=== PATIENT | male | born 1935 | race Caucasian/White ===

== ENCOUNTER → 2017-08-09 15:11 | Outpatient (CLI) | payer MEDICARE, SELFPAY ==
[2017-08-09 16:13] LABS: Blood Urea Nitrogen 20 mg/dL (9-20); Calcium 9.4 mg/dL (8.4-10.2); Carbon Dioxide 29 mmol/L (22-32); Chloride 102 mmol/L (98-107); Estimated Glomerular Filt Rate > 60.0 mL/min (>60); Glucose 117 mg/dL (80-110); HEMOLYSIS < 15 (0-50); Potassium 3.7 mmol/L (3.4-5.1); Sodium 142 mmol/L (137-145)
== END ==
PROVIDERS: Family Provider Family Medicine; PCP Family Medicine; Visit Provider Internal Medicine Cardiovascular Disease
DX: I10 Essential (primary) hypertension (principal)
CPT/HCPCS: 36415; 80048

== ENCOUNTER → 2017-08-15 09:39 | Outpatient (CLI) | payer MEDICARE, SELFPAY ==
--- NOTE | 2017-08-15 09:41 | DI.US.S_ITS ---
PROCEDURE: US PERIPH VENOUS LOW EXTREM BI INDICATIONS: Edema TECHNIQUE: Real-time imaging, as well as color and pulse Doppler interrogation, were performed of the deep veins of both legs from the inguinal ligament to the popliteal fossa. COMPARISON: None. FINDINGS: The deep veins are normally compressible, and free of intraluminal thrombus. Color and pulse Doppler demonstrate normal phasic intravascular flow. There is normal augmentation response to distal compression maneuver. IMPRESSION: No deep venous thrombosis identified within either the left or right lower extremities. Dictated by: Luigi Chua [facility] Interpreted: Viri Mcdermott MD on 08/15/2017 at 10:55 Approved by: Viri Mcdermott MD, PhD on 08/15/2017 at 14:30
== END ==
PROVIDERS: Family Provider Family Medicine; PCP Family Medicine; Visit Provider Internal Medicine
DX: R60.9 Edema, unspecified (principal)
CPT/HCPCS: 93970

== ENCOUNTER 2017-10-23 11:25 | Day surgery (SDC) | payer MEDICARE, SELFPAY ==
--- NOTE | 2017-10-23 | PATH_ITS ---
[facility] Accession Number: [id number] . 01 Material submitted: . PART A: CECAL POLYPS PART B: POLYP @ 80CM PART C: POLYP @ 50CM PART D: POLYP @ 10CM . 02 Diagnosis: A. Cecal Polyps: Fragments of tubulovillous adenoma. Negative for high-grade dysplasia or malignancy. . B. 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 . C. Colon Poly at 50 cm: Colonic mucosa with prominent benign lymphoid aggregate. Negative for serrated lesion, dysplasia or malignancy. . D. Colon Polyp at 10 cm: Fragments of hyperplastic polyp. MRV/10/25/2017 . 02 Comment: Part B) Immunohistochemical stains for DNA mismatch repair proteins are pending and results will be issued in an addendum. . As part of routine quality tester, Dr. Fleming has reviewed part B of this case and agrees with the above diagnosis. The finding of invasive adenocarcinoma with mucinous features was reported to Dr. Burgess's nurse, [facility], by Dr. Mario Schroeder on 10/25/2017 at 11:40 a.m. . 02 Electronically signed: . Mario Schroeder MD, PhD, Pathologist NPI- [id number] . 01 Gross description: . Part A: CECAL POLYPS: Received in formalin are multiple fragment(s) of dodd, soft tissue measuring 2.5 x 1.7 x 0.4 cm in aggregate submitted entirely in 1 cassette(s) Part B: POLYP @ 80CM: Received in formalin are multiple fragment(s) of dodd, soft tissue measuring 1.5 x 0.6 x 0.3 cm in aggregate submitted entirely in 1 cassette(s) Part C: POLYP @ 50CM: Received in formalin is 1 fragment(s) of dodd, soft tissue measuring 0.5 x 0.4 x 0.2 cm submitted entirely in 1 cassette(s) Part D: POLYP @ 10CM: Received in formalin are multiple fragment(s) of dodd, soft tissue measuring 0.7 x 0.4 x 0.3 cm in aggregate submitted entirely in 1 cassette(s) /CKI /CKI . 02 Pathologist provided ICD-10: D12.0, K63.5, C18.9 . 02 CPT . 865178, [id number], [id number], 227783, D45251, [id number] Performed at: 01 [facility] [address] [id number] MD Doug Johnson MD Phone: [phone] Performed at: 02 [facility] [address] [place], [place] [id number] MD Steven Abbott MD Phone: [phone]
[2017-10-23 12:11] VITALS: BP 160/91; PULSE 73; RESP 18; TEMP 36.4; O2SAT 97; BMI 30.5
[2017-10-23] MEDS: SODIUM CHLORIDE 0.9% 1,000 ML 200 ML IV (12:21)
--- NOTE | 2017-10-23 13:33 | PM.HP.1 ---
History of Present Illness Date Patient Seen: 10/23/17 Time Patient Seen: 12:33 Chief complaint: 60101 COLONOSCOPY Narrative: Patient here for screening exam. Last exam over 12 years ago. He has a history of polyps. Patient History Medical History AICD (automatic cardioverter/defibrillator) present (Chronic) Diabetes mellitus (Chronic) Hyperlipidemia (Chronic) Hypertension (Chronic) Pacemaker (Chronic) Peripheral neuropathy (Chronic) Vertigo (Chronic) Colon polyps (Resolved) Surgical History Implantable cardioverter-defibrillator (ICD) in situ (Resolved) Presence of cardiac pacemaker (Resolved) Family & Social History Family History: Reviewed 10/23/17 by Sami Burgess MD Social History: household members spouse Tobacco & Substance use: Smoking Status Former smoker Meds Home Medications Medication Instructions Recorded Confirmed Type aspirin 81 mg PO QDAY #0 01/10/12 10/23/17 History Disabled Parking Permit ea #1 03/21/16 08/29/17 Rx [cinnamon] 1,000 mg PO QDAY #0 03/06/17 08/29/17 History atorvastatin 20 mg tablet 20 mg PO HS #90 tab 08/11/17 10/23/17 Rx carvedilol 3.125 mg tablet 3.125 mg PO BID #180 tab 08/11/17 10/23/17 Rx potassium chloride ER 10 mEq 10 meq PO QDAY #90 tab 08/11/17 10/23/17 Rx capsule,extended release amlodipine 5 mg tablet 2.5 mg PO QDAY #180 tab 08/14/17 10/23/17 Rx losartan 50 mg-hydrochlorothiazide 2 tab PO QDAY #90 tab 08/14/17 10/23/17 Rx 12.5 mg tablet gaxohxbx-rrfa-HF-calcium-mins 1 tab PO QDAY #90 tab 10/12/17 10/23/17 Rx [Thera M Plus (ferrous fumarat)] Allergies Allergy/AdvReac Type Severity Reaction Status Date / Time No Known Drug Allergies Allergy Unverified 09/19/17 14:51 Review of Systems Review of Systems All systems reviewed & are unremarkable except as noted in HPI and below Exam Vital Signs (past 8 hours): - 10/23/17 12:11 Temperature 97.6 F Pulse Rate 73 Respiratory Rate 18 Blood Pressure 160/91 H Pulse Oximetry 97 Oxygen Delivery Method Room Air Narrative Exam Narrative: Operative no apparent distress. Lungs are clear no rales or rhonchi heart regular rate and rhythm without murmur gallop defibrillator noted left infraclavicular fossa. Two parallel scars there. Abdomen is protuberant soft nontender without mass. Patient is alert oriented Assessment & Plan Plan: Assessment/Plan Narrative: Patient here for screening colonoscopy. I have discussed the procedure and the rationale with the patient including risks of bleeding, perforation which would necessitate a major operation, failure to find remove all lesions and the potential to tattoo. They appeared to understand and wished to proceed. We will a magnet in the room in case I used cautery
[2017-10-23] MEDS: MIDAZOLAM 5 MG/5 ML VIAL IV (14:38)
[2017-10-23] MEDS: fentaNYL 250 MCG/5 ML INJ IV (14:38)
--- NOTE | 2017-10-23 14:50 | PM.OP.ENDO ---
Operative Date/Time/Diagnoses Date of procedure: 10/23/17 Time of procedure: 14:50 Pre-op diagnosis: History of polyps. Last colonoscopy over 12 years ago. Post-op diagnosis: same (Numerous polyps. Two very suspicious for malignancy. One could not be safely removed see details below.) Procedure & Clinicians Study performed: Colonoscopy with hot snare polypectomy and cold biopsies. Same procedure as scheduled: Yes Indications: History of polyps. Surgeon: Sami Burgess Procedure Notes SCOAP/Timeout: Performed. Did not use beta-desmond. Pulse however was slow. Procedure in detail: The patient was placed in the left lateral decubitus position and underwent IV sedation directed by the surgeon consisting of fentanyl and Versed. Digital exam was unremarkable. His prostate is normal in size without mass. The scope was inserted and advanced through the rectum into the sigmoid, descending, transverse, and ascending colon. I saw [address] in which was quite small and removed it. It was located at about 50 cm. The patient was also noted to have sigmoid diverticulosis. I had difficulty reaching the cecum and had to reposition the patient uses stiffener and apply pressure. The cecum was reached identified by the ileocecal valve and the appendiceal opening. There were at least 5 polyps in the cecum 1 of which was broad-based and rather large and worrisome for malignancy. I successfully removed them all in pieces. I cauterized the base of 2. The scope was gradually brought out. A mass was found at 80 cm from the anal verge. It was a rounded broad-based lesion occupying at least a 6 to the wall. Surface was friable and all of it was suggestive of malignancy. Multiple biopsies were taken. I then injected Gertrudis ink just distal to it in 3 areas. Two additional small Polyps were found in the rectum and these were removed . The scope ultimately was retroflexed in the rectum. The appearance was[normal]. The scope was removed and the patient tolerated the procedure well Scope withdrawal time: Almost 5 5 min Sedation minutes: 65 Findings: diverticulosis (Sigmoid), polyp (Multiple) and possible cancer (80 cm from the anal verge) Specimen(s): other (Polyps and mass.) Complications: none Plan for aftercare: Follow-up in the office Follow up: weeks (One) Disposition: PACU
[2017-10-23 15:03] VITALS: BP 164/84; PULSE 67; RESP 16; TEMP 36.1; O2SAT 97
== END 2017-10-23 15:30 | disposition home or self-care (01) ==
PROVIDERS: Specialist; Family Provider Family Medicine; PCP Family Medicine; Visit Provider Surgery
PROC: 0DJD8ZZ Inspection of Lower Intestinal Tract, Via Natural or Artificial Opening Endoscopic (ICD-10-PCS; CPT 45378; principal; 2017-10-23 13:00)
DX: Z86.010 Personal history of colon polyps (principal); K57.30 Diverticulosis of large intestine without perforation or abscess without bleeding; E11.9 Type 2 diabetes mellitus without complications; E78.5 Hyperlipidemia, unspecified; I10 Essential (primary) hypertension; Z95.0 Presence of cardiac pacemaker; G62.9 Polyneuropathy, unspecified; D12.0 Benign neoplasm of cecum; K63.5 Polyp of colon; C18.9 Malignant neoplasm of colon, unspecified
CPT/HCPCS: 45385; 45380; 88305; 88341; 88342; 99152; 99153; J2250; J3010

== ENCOUNTER → 2017-10-31 11:22 | Outpatient (CLI) | payer MEDICARE, SELFPAY ==
[2017-10-31 12:17] LABS: Add Manual Diff / Slide Review NO; Basophils Percent Auto 1.3 % (0-2); Eosinophils Percent Auto 1.5 % (2-4); Hematocrit 40.4 % (41-53); Hemoglobin 14.2 g/dL (13.5-17.5); Lymphocytes Percent Auto 28.9 % (25-40); Mean Corpuscular HGB Conc 35.1 % (30-36); Mean Corpuscular Hemoglobin 32.2 PG (26-34); Mean Corpuscular Volume 91.7 fL (80-100); Monocytes Percent Auto 7.6 % (3-14); Neutrophils Absolute Auto 5400 /uL (3000-5900); Neutrophils Percent Auto 60.7 % (50-75); Platelet Count 295 X10^3/uL (150-400); Red Blood Cell Count 4.41 X10^6/uL (4.5-5.9); Red Cell Distribution Width 13.5 % (11.6-14.8); White Blood Cell Count 8.9 X10^3/uL (4.5-11.0)
[2017-10-31 13:11] LABS: Alanine Aminotransferase 28 IU/L (21-72); Albumin Globulin Ratio 1.4 (1.0-2.8); Alkaline Phosphatase 107 U/L (38-126); Aspartate Aminotransferase 19 IU/L (17-59); Bilirubin Total 0.7 mg/dL (0.2-1.3); Blood Urea Nitrogen 18 mg/dL (9-20); Calcium 9.3 mg/dL (8.4-10.2); Carbon Dioxide 32 mmol/L (22-32); Chloride 102 mmol/L (98-107); Estimated Glomerular Filt Rate > 60.0 mL/min (>60); Globulin 2.8 g/dL (1.7-4.1); Glucose 192 mg/dL (80-110); HEMOLYSIS < 15 (0-50); Potassium 4.2 mmol/L (3.4-5.1); Sodium 145 mmol/L (137-145); Total Protein 6.8 g/dL (6.3-8.2)
[2017-10-31 13:42] LABS: Carcinoembryonic Antigen 3.9 ng/mL (0.1-3.0)
== END ==
PROVIDERS: PCP Family Medicine; Visit Provider Specialist
DX: C18.6 Malignant neoplasm of descending colon (principal)
CPT/HCPCS: 36415; 80053; 82378; 85025

== ENCOUNTER → 2017-11-01 10:06 | Outpatient (CLI) | payer MEDICARE, SELFPAY ==
--- NOTE | 2017-11-01 10:46 | DI.CT.S_ITS ---
PROCEDURE: CT ABDOMEN PELVIS W CON INDICATIONS: Left colon cancer TECHNIQUE: After the administration of oral and intravenous contrast, 5 mm thick sections acquired from the diaphragms to the symphysis. 5 mm thick coronal and sagittal reformats were performed. For radiation dose reduction, the following was used: automated exposure control, adjustment of mA and/or kV according to patient size. COMPARISON: [facility], CT, KIDNEY/ URETER/BLADDER, 10/18/2010, 11:11. FINDINGS: Image quality: Diagnostic. ABDOMEN: Lung bases: Lung bases are clear. Heart size is normal. Solid organs: The liver is mildly hypodense when compared to the spleen. No definable liver lesions are evident. The gallbladder is not enlarged. The spleen and pancreas are within normal limits. Mild nodular appearance of the adrenals are noted, which are similar to the previous examination. No definable nodule is evident. Both kidneys are normal in size. A partly calcified cyst is evident along the posterior aspect of the inferior left kidney, which is unchanged since 2010, compatible with a benign process. A small inferior right renal cyst is noted, which appears to be benign. Peritoneum and bowel: There is a small hiatal hernia. Otherwise, stomach and duodenum are unremarkable. There is moderate residual stool identified within the colon. The small bowel loops are nondilated. Mild colonic diverticulosis is evident. No free fluid, loculated fluid collection or free air is evident. No mesenteric edema or inflammation is identified. There is a thick structure is identified within the left lower quadrant mesentery adjacent to the colon, which demonstrates subtle calcifications and was not present on the previous examination. Centrally, the structure demonstrates fat density (image 71, series 2). The structure does not appear to be contiguous with the adjacent bowel loops and may be related to previous sites of mesenteric trauma. The appendix is well-visualized and normal in size and appearance. Nodes and vessels: No retroperitoneal or mesenteric adenopathy. Aorta and inferior vena cava are normal in caliber. Extensive aortic and iliac artery atherosclerosis is noted. Bones: No acute fracture or suspicious osseous lesion is identified. There are prominent multilevel degenerative changes of the lower lumbar spine, predominantly seen involving the facet joints. Bilateral L5 pars defects are present with grade 1 anterolisthesis. PELVIS: Genitourinary: Bladder wall thickness is normal. Borderline enlargement of the prostate is present. Miscellaneous: No pelvic adenopathy is evident. There may be small fat-containing bilateral inguinal hernias. No free fluid or loculated fluid collection is identified. Bones: No suspicious bony lesions. No acute pelvic fractures are evident. Moderate degenerative changes of the bilateral hips are present. IMPRESSION: 1. No convincing evidence of metastatic disease within the abdomen or pelvis. No lymphadenopathy. 2. No bowel obstruction. There may be colonic constipation. 3. Probable mild hepatic steatosis. 4. Small hiatal hernia. There also appear to be small fat-containing inguinal hernias. 5. Mild enlargement of the prostate. 6. Peripherally calcified fat density structure within the left lower quadrant mesentery does not appear to connect to bowel loops and probably is related to previous mesenteric injury. This is of doubtful significance. Dictated by: Sung Johnson M.D. on 11/01/2017 at 12:36 Approved by: Sung Johnson M.D. on 11/01/2017 at 12:50
== END ==
PROVIDERS: Family Provider Family Medicine; PCP Family Medicine; Visit Provider Specialist
DX: C18.6 Malignant neoplasm of descending colon (principal); K44.9 Diaphragmatic hernia without obstruction or gangrene; N40.0 Benign prostatic hyperplasia without lower urinary tract symptoms; K40.90 Unilateral inguinal hernia, without obstruction or gangrene, not specified as recurrent
CPT/HCPCS: 74177; Q9967

== ENCOUNTER → 2017-11-07 10:29 | Outpatient (CLI) | payer MEDICARE, SELFPAY ==
[2017-11-07 12:49] LABS: BUN Creatinine Ratio 18.9 (6-22); Blood Urea Nitrogen 17 mg/dL (9-20); Estimated Glomerular Filt Rate > 60.0 mL/min (>60)
== END ==
PROVIDERS: PCP Family Medicine; Visit Provider Specialist
DX: C18.6 Malignant neoplasm of descending colon (principal)
CPT/HCPCS: 36415; 82565; 84520

== ENCOUNTER → 2017-11-08 10:52 | Outpatient (CLI) | payer MEDICARE, SELFPAY ==
--- NOTE | 2017-11-08 11:23 | DI.CT.S_ITS ---
PROCEDURE: CT CHEST W CON INDICATIONS: Left colon cancer TECHNIQUE: After the administration of intravenous contrast, 5 mm thick sections acquired from the pulmonary apices to the posterior costophrenic angles. 7 mm thick coronal and sagittal MIP reformats were acquired. For radiation dose reduction, the following was used: automated exposure control, adjustment of mA and/or kV according to patient size. COMPARISON: None. FINDINGS: Image quality: Excellent. Lungs and pleura: No acute consolidation. There is background chronic upper lobe predominant centrilobular emphysema. No pleural effusions or pneumothorax. Central and peripheral airways are patent and normal in caliber. Mediastinum: Heart size is normal. Scant coronary artery calcifications. No pericardial effusion. No mediastinal or hilar adenopathy by size criteria. Thoracic aorta and central pulmonary arteries are normal in size. Esophagus is normal in caliber. No hiatal hernia. Bones and chest wall: No suspicious bony lesions. No vertebral body compression fractures. No axillary or supraclavicular adenopathy by size criteria. Thyroid gland negative. Abdomen: Visualized upper abdominal solid organs appear normal. Upper abdominal bowel loops are normal in caliber. IMPRESSION: No evidence of metastatic disease Upper lobe predominant centrilobular emphysema. Coronary artery disease. Dictated by: Matthew Pelayo M.D. on 11/08/2017 at 16:51 Approved by: Matthew Pelayo M.D. on 11/08/2017 at 16:56
== END ==
PROVIDERS: Family Provider Family Medicine; PCP Family Medicine; Visit Provider Specialist
DX: C18.6 Malignant neoplasm of descending colon (principal); J43.2 Centrilobular emphysema; I25.10 Atherosclerotic heart disease of native coronary artery without angina pectoris
CPT/HCPCS: 71260; Q9967

== ENCOUNTER → 2017-11-15 16:04 | Outpatient (CLI) | payer MEDICARE, SELFPAY ==
[2017-11-15 18:27] LABS: Alanine Aminotransferase 42 IU/L (21-72); Albumin 4.2 g/dL (3.5-5.0); Albumin Globulin Ratio 1.5 (1.0-2.8); Alkaline Phosphatase 96 U/L (38-126); Aspartate Aminotransferase 25 IU/L (17-59); Bilirubin Total 0.6 mg/dL (0.2-1.3); Blood Urea Nitrogen 21 mg/dL (9-20); Calcium 9.8 mg/dL (8.4-10.2); Carbon Dioxide 31 mmol/L (22-32); Chloride 104 mmol/L (98-107); Estimated Glomerular Filt Rate > 60.0 mL/min (>60); Globulin 2.8 g/dL (1.7-4.1); Glucose 119 mg/dL (80-110); HEMOLYSIS < 15 (0-50); Magnesium 2.1 mg/dL (1.6-2.3); Potassium 4.5 mmol/L (3.4-5.1); Sodium 148 mmol/L (137-145)
[2017-11-15 18:52] LABS: Thyroid Stimulating Hormone 5.36 uIU/mL (0.47-4.68)
== END ==
PROVIDERS: Family Provider Family Medicine; PCP Family Medicine; Visit Provider Internal Medicine Cardiovascular Disease
DX: I10 Essential (primary) hypertension (principal); I47.2 Ventricular tachycardia
CPT/HCPCS: 36415; 80053; 83735; 84443

== ENCOUNTER 2017-11-20 13:45 | Outpatient (RCR) | payer MEDICARE, SELFPAY ==
--- NOTE | 2017-06-29 17:53 | PT.OIE ---
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 Provider Visit Care Team Role Provider Type Aniyah Feliciano MD Attending Provider Physician Family Provider Primary Care Provider Specialty: Family Practice Address: [address] [place] [address], [facility] Email: [email or web address] Physical Therapy Initial Evaluation PT-OP-A Visit Information Start: 06/29/17 17:27 Freq: Status: Active Protocol: Document 06/29/17 14:30 DCW (Rec: 06/29/17 17:52 DCW [id number]) Out-Patient Physical Therapy Visit Information Visit Information Visit Type Initial Evaluation Visit Start Time 14:30 Visit Stop Time 15:15 Total Visit Minutes 45 Visit Number 1 Number of BRAND MANAGER Visits 0 Evaluation Information Evaluation Date 06/29/17 PT-OP-B Current Condition Start: 06/29/17 17:27 Freq: Status: Active Protocol: Document 06/29/17 14:30 DCW (Rec: 06/29/17 17:52 DCW [id number]) Current Condition History of Current Condition Onset Date six months Current Complaints Pt has ongoing complaints of motion-induced imbalance History of Current Condition Pt is a 81 year old male presenting with a six month history of motion-induced imbalance. 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 Pt reports episodes last minutes to hours. Symptoms are provoked by looking up, rolling in bed, or moving too quickly. Pt denies recent hearing changes, tinnitus, dysarthria, discoordination, or decreased mentation/ consciousness. Pt reports symptoms are waxing and waning in nature. Pt denies hx of diabetes, head trauma, seizure , migraines, CVA, anxiety/ panic disorders, depression, or excessive smoking or drinking. Pt does have a history of medicine-controlled HTN and Hyperlipidemia. 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 Treatment Goals Patient/Caregiver Goals I want to feel more balanced when I'm up moving around. Prior Functional Status Baseline Function- ADL's Modified Independent Baseline Function- Mobility Modified Independent Baseline Function- Gait Uses walking stick for stability Current Functional Impairments (Reported) Functional Limitations- Mobility/Gait Pt reports poor balance, requires an assistive device or a hand on a wall at all times. Pt has suffered multiple falls. PT-OP-C Subjective Start: 06/29/17 17:27 Freq: Status: Active Protocol: Document 06/29/17 14:30 DCW (Rec: 06/29/17 17:52 DCW [id number]) Patient Questionnaires ABC- Activity Specific Balance Confidence Scale ABC Score 40 ABC Functional Impairment 60 to <80% Impaired (Score 21- 40) Dizziness Handicap Inventory DHI Score 56 DHI Functional Impairment 40 to 59% Impaired (Score 40- 59) PT-OP-D Balance Start: 06/29/17 17:27 Freq: Status: Active Protocol: Document 06/29/17 14:30 DCW (Rec: 06/29/17 17:52 DCW [id number]) OP-PT Balance Assessment Sitting Balance Static Sitting Balance Ability Normal Dynamic Sitting Balance Ability Normal Standing Balance Static Standing Balance Ability Fair Dynamic Standing Balance Ability Poor Balance Tests CTSIB CTSIB Position 1 Mild Sway CTSIB Position 2 Fall Reaction CTSIB Position 3 Fall Reaction CTSIB Position 4 Fall Reaction CTSIB Position 5 Fall Reaction CTSIB Position 6 Fall Reaction Downing Fall Scale Copyright Permission Chang JM, Chang RM, Leif SJ. Development of a scale to identify the fall- prone patient. Can J Aging 1989;8;366-7. Shelli Downing (2009). Preventing patient falls. (2nd ed). [place]: [place]. PT-OP-O Vestibular Start: 06/29/17 17:27 Freq: Status: Active Protocol: Document 06/29/17 14:30 DCW (Rec: 06/29/17 17:52 DCW [id number]) Vestibular Assessment Screening Tests Vestibular Artery Screen Negative Auditory Tests Rivero Test Negative Rinne Test Negative Air Conduction Results Equal Visual Testing Smooth Pursuits Horizontal Negative Saccades Horizontal Negative Gaze Evoked Nystagmus With Fixation Negative Gaze Evoked Nystagmus Without Fixation Negative Heave Test Positive Right Thrust Head Positive Right DVA (Line Degradation) 4 Head Shake Positive Positional Testing [place]-Hallpike Positive Left Negative Right Rolling Test Negative Left Negative Right Supine to Sit Positive PT-OP-T Assessment and Plan Start: 06/29/17 17:27 Freq: Status: Active Protocol: Document 06/29/17 14:30 DCW (Rec: 06/29/17 17:52 DCW [id number]) Physical Therapy Assessment Rehab Potential Rehabilitation Potential Good Evaluation Complexity Number of Personal Factors/Comorbidities 3 or More Number of Body Systems Impaired 3 Clinical Presentation at Evaluation Unstable Impairments Impairments Balance Coordination Vestibular Goals Three Impairment CTSIB Longterm Goal (LTG) Pt to have at worst Moderate Sway in positions II- Two Impairment DVA Longterm Goal (LTG) DVA to within three lines LTG Duration 6 weeks One Impairment [place]-Hallpike Short Term Goal (STG) Negative [place]-Hallpike Bilaterally STG Duration 2 weeks Assessment Summary Assessment Patient presents with signs and symptoms consistent with partially-compensated right vestibular hypofunction. Patient's positive thrust, heave, and shake tests all support this diagnosis, as well as the four line degradation of his DVA. Additionally, pt had a very brief nystagmus and complaints of dizziness in the left [place]- Hallpike position, however it was so brief that there was no time to determine direction of the nystagmus. Due to patient's BPPV history, a left Kali maneuver was performed. Patient should benefit from skilled therapy focusing on vestibular adaptation and habituation, static/dynamic balance training, and further CRM as needed. Physical Therapy Plan Frequency and Duration Frequency of Treatment 1x/Week Duration of Treatment 10 weeks Plan of Care Start Date 06/29/17 Plan of Care End Date 09/06/17 Therapeutic Interventions Therapeutic Interventions Balance Training Canalithic Repositioning Coordination Training Gait Training Home Exercise Program Manual Therapy Patient/Caregiver Education Therapeutic Exercises Vestibular Rehabilitation Next Visit Focus/Plan Next Visit Plan Vestibular Adaptation/ Habituation, Static/Dynamic Balance training, CRM, perform Little Balance test Provider Signature Date
--- NOTE | 2017-06-29 17:54 | PT.OPPOC ---
Current Diagnoses Benign paroxysmal vertigo, unspecified ear (06/29/17) Other peripheral vertigo, right ear (06/29/17) Other abnormalities of gait and mobility (06/29/17) Provider Visit Care Team Role Provider Type Aniyah Feliciano MD Attending Provider Physician Family Provider Primary Care Provider Specialty: Family Practice Address: [address] [place] [address] Email: [email or web address] Plan Of Care PT-OP-T Assessment and Plan Start: 06/29/17 17:27 Freq: Status: Active Protocol: Document 06/29/17 14:30 DCW (Rec: 06/29/17 17:52 DCW [id number]) Physical Therapy Assessment Rehab Potential Rehabilitation Potential Good Evaluation Complexity Number of Personal Factors/Comorbidities 3 or More Number of Body Systems Impaired 3 Clinical Presentation at Evaluation Unstable Impairments Impairments Balance Coordination Vestibular Goals Three Impairment CTSIB Waste Water Or Water Plant Operator Goal (LTG) Pt to have at worst Moderate Sway in positions II- Two Impairment DVA [facility] Goal (LTG) DVA to within three lines LTG Duration 6 weeks One Impairment [place]-Hallpike Short Term Goal (STG) Negative Mere-Hallpike Bilaterally STG Duration 2 weeks Assessment Summary Assessment Patient presents with signs and symptoms consistent with partially-compensated right vestibular hypofunction. Patient's positive thrust, heave, and shake tests all support this diagnosis, as well as the four line degradation of his DVA. Additionally, pt had a very brief nystagmus and complaints of dizziness in the left [place]- Hallpike position, however it was so brief that there was no time to determine direction of the nystagmus. Due to patient's BPPV history, a left Kali maneuver was performed. Patient should benefit from skilled therapy focusing on vestibular adaptation and habituation, static/dynamic balance training, and further CRM as needed. Physical Therapy Plan Frequency and Duration Frequency of Treatment 1x/Week Duration of Treatment 10 weeks Plan of Care Start Date 06/29/17 Plan of Care End Date 09/06/17 Therapeutic Interventions Therapeutic Interventions Balance Training Canalithic Repositioning Coordination Training Gait Training Home Exercise Program Manual Therapy Patient/Caregiver Education Therapeutic Exercises Vestibular Rehabilitation Next Visit Focus/Plan Next Visit Plan Vestibular Adaptation/ Habituation, Static/Dynamic Balance training, CRM, perform Little Balance test Plan of Care Dates Plan of Care Start Date 06/29/17 Plan of Care End Date 09/06/17 Please Sign and Return: I have reviewed this Plan of Care and certify that the skilled therapy services above are required to meet the patient???s needs. Physician Signature Date Printed Name and Credentials
--- NOTE | 2017-07-05 17:00 | PT.OTN ---
Current Diagnoses Benign paroxysmal vertigo, unspecified ear (07/05/17) Physical Therapy Treatment Note PT-OP-A Visit Information Start: 06/29/17 17:27 Freq: Status: Active Protocol: Document 07/05/17 15:15 DCW (Rec: 07/05/17 17:00 DCW [id number]) Out-Patient Physical Therapy Visit Information Visit Information Visit Type Treatment Note Visit Start Time 15:15 Visit Stop Time 16:00 Total Visit Minutes 45 Visit Number 2 Number of BENEFITS ADMINISTRATOR Visits 0 Evaluation Information Evaluation Date 06/29/17 PT-OP-B Current Condition Start: 06/29/17 17:27 Freq: Status: Active Protocol: Document 06/29/17 14:30 DCW (Rec: 06/29/17 17:52 DCW [id number]) Current Condition History of Current Condition Onset Date six months Current Complaints Pt has ongoing complaints of motion-induced imbalance History of Current Condition Pt is a 81 year old male presenting with a six month history of motion-induced imbalance. 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 Pt reports episodes last minutes to hours. Symptoms are provoked by looking up, rolling in bed, or moving too quickly. Pt denies recent hearing changes, tinnitus, dysarthria, discoordination, or decreased mentation/ consciousness. Pt reports symptoms are waxing and waning in nature. Pt denies hx of diabetes, head trauma, seizure , migraines, CVA, anxiety/ panic disorders, depression, or excessive smoking or drinking. Pt does have a history of medicine-controlled HTN and Hyperlipidemia. 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 Treatment Goals Patient/Caregiver Goals I want to feel more balanced when I'm up moving around. Prior Functional Status Baseline Function- ADL's Modified Independent Baseline Function- Mobility Modified Independent Baseline Function- Gait Uses walking stick for stability Current Functional Impairments (Reported) Functional Limitations- Mobility/Gait Pt reports poor balance, requires an assistive device or a hand on a wall at all times. Pt has suffered multiple falls. PT-OP-C Subjective Start: 06/29/17 17:27 Freq: Status: Active Protocol: Document 07/05/17 15:15 DCW (Rec: 07/05/17 17:00 DCW [id number]) OP-PT Subjective Patient Comments Patient Comments I feels the same as always. PT-OP-E Functional Tests Start: 07/05/17 16:49 Freq: Status: Active Protocol: Document 07/05/17 15:15 DCW (Rec: 07/05/17 17:00 DCW [id number]) Functional Tests Dynamic Gait Index (DGI) Score 13 DGI Impairment Rating 40 to <60% Impaired (Score 10- 14) PT-OP-Q Treatments Start: 06/29/17 17:27 Freq: Status: Active Protocol: Document 07/05/17 15:15 DCW (Rec: 07/05/17 17:00 DCW [id number]) Gym Equipment Shuttle Balance 1 Details Red - Wide ARMANI (Eyes open, eyes closed, X1 Viewing) Reps/Duration 10' Neuro Re-Education Treatment Balance Activities 1 Details Narrow ARMANI (1X viewing, eyes closed), Semi-tandem Equipment Hester Foam Vestibular Rehabilitation Corrective Saccades Distance From Target Arm length Position Seated VOR Retraining Distance From Target Arm length Position Seated X2 Viewing Distance From Target Arm length Position Seated X1 Viewing Distance From Target Arm length Position Seated Other Activities 1 Details DGI Reps/Duration 15' Comments PT-OP-T Assessment and Plan Start: 06/29/17 17:27 Freq: Status: Active Protocol: Document 07/05/17 15:15 DCW (Rec: 07/05/17 17:00 DCW [id number]) Physical Therapy Assessment Rehab Potential Rehabilitation Potential Good Impairments Impairments Balance Coordination Vestibular Goals Three Impairment CTSIB [facility] Goal (LTG) Pt to have at worst Moderate Sway in positions II- LTG Duration 08/10/17 Two Impairment DVA [facility] Goal (LTG) DVA to within three lines LTG Duration 08/10/17 One Impairment Mere-Hallpike Short Term Goal (STG) Negative [place]-Hallpike Bilaterally STG Duration 07/13/17 Assessment Summary Assessment Pt becomes easily distracted performing his exercises, unclear if he will be able to perform regularly on his own for HEP. Physical Therapy Plan Frequency and Duration Frequency of Treatment 1x/Week Duration of Treatment 10 weeks Plan of Care Start Date 06/29/17 Plan of Care End Date 09/06/17 Therapeutic Interventions Therapeutic Interventions Balance Training Canalithic Repositioning Coordination Training Gait Training Home Exercise Program Manual Therapy Patient/Caregiver Education Therapeutic Exercises Vestibular Rehabilitation Next Visit Focus/Plan Next Visit Plan Vestibular Adaptation/ Habituation, Static/Dynamic Balance training, CRM
--- NOTE | 2017-07-19 12:46 | PT.OTN ---
Current Diagnoses Benign paroxysmal vertigo, unspecified ear (07/19/17) Physical Therapy Treatment Note PT-OP-A Visit Information Start: 06/29/17 17:27 Freq: Status: Active Protocol: Document 07/19/17 12:00 DCW (Rec: 07/19/17 12:46 DCW [id number]) Out-Patient Physical Therapy Visit Information Visit Information Visit Type Treatment Note Visit Start Time 12:00 Visit Stop Time 12:45 Total Visit Minutes 45 Visit Number 3 Number of HOT DOG VENDER Visits 0 Evaluation Information Evaluation Date 06/29/17 PT-OP-B Current Condition Start: 06/29/17 17:27 Freq: Status: Active Protocol: Document 06/29/17 14:30 DCW (Rec: 06/29/17 17:52 DCW [id number]) Current Condition History of Current Condition Onset Date six months Current Complaints Pt has ongoing complaints of motion-induced imbalance History of Current Condition Pt is a 81 year old male presenting with a six month history of motion-induced imbalance. 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 Pt reports episodes last minutes to hours. Symptoms are provoked by looking up, rolling in bed, or moving too quickly. Pt denies recent hearing changes, tinnitus, dysarthria, discoordination, or decreased mentation/ consciousness. Pt reports symptoms are waxing and waning in nature. Pt denies hx of diabetes, head trauma, seizure , migraines, CVA, anxiety/ panic disorders, depression, or excessive smoking or drinking. Pt does have a history of medicine-controlled HTN and Hyperlipidemia. 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 Treatment Goals Patient/Caregiver Goals I want to feel more balanced when I'm up moving around. Prior Functional Status Baseline Function- ADL's Modified Independent Baseline Function- Mobility Modified Independent Baseline Function- Gait Uses walking stick for stability Current Functional Impairments (Reported) Functional Limitations- Mobility/Gait Pt reports poor balance, requires an assistive device or a hand on a wall at all times. Pt has suffered multiple falls. PT-OP-C Subjective Start: 06/29/17 17:27 Freq: Status: Active Protocol: Document 07/19/17 12:00 DCW (Rec: 07/19/17 12:46 DCW [id number]) OP-PT Subjective Patient Comments Patient Comments I'm marginally steadier today. PT-OP-Q Treatments Start: 06/29/17 17:27 Freq: Status: Active Protocol: Document 07/19/17 12:00 DCW (Rec: 07/19/17 12:46 DCW [id number]) Gym Equipment Shuttle Balance 1 Details Red - Wide ARMANI (Eyes open, X1 Viewing), Staggered Stance Reps/Duration 15' Neuro Re-Education Treatment Balance Activities 6 Details Narrow ARMANI /c eyes closed Equipment @ rail 5 Details [place] Surface Level Equipment Rail 4 Details Heel-toe Walking Surface Level Equipment Rail 3 Details Hurdles 2 Details Staggered Stance on foam, X1 target viewing Equipment Blue Foam PT-OP-T Assessment and Plan Start: 06/29/17 17:27 Freq: Status: Active Protocol: Document 07/19/17 12:00 DCW (Rec: 07/19/17 12:46 DCW [id number]) Physical Therapy Assessment Rehab Potential Rehabilitation Potential Good Impairments Impairments Balance Coordination Vestibular Goals Three Impairment CTSIB Nursing Home Goal (LTG) Pt to have at worst Moderate Sway in positions II- LTG Duration 08/10/17 Two Impairment DVA Intern Brand Goal (LTG) DVA to within three lines LTG Duration 08/10/17 One Impairment [place]-Hallpike Short Term Goal (STG) Negative Mere-Hallpike Bilaterally STG Duration 07/13/17 Assessment Summary Assessment Pt appeared to be mildly more steady today, able to perform his program with fewer distractions. Physical Therapy Plan Frequency and Duration Frequency of Treatment 1x/Week Duration of Treatment 10 weeks Plan of Care Start Date 06/29/17 Plan of Care End Date 09/06/17 Therapeutic Interventions Therapeutic Interventions Balance Training Canalithic Repositioning Coordination Training Gait Training Home Exercise Program Manual Therapy Patient/Caregiver Education Therapeutic Exercises Vestibular Rehabilitation Next Visit Focus/Plan Next Visit Plan Vestibular Adaptation/ Habituation, Static/Dynamic Balance training, CRM as needed
--- NOTE | 2017-07-26 12:46 | PT.OTN ---
Current Diagnoses Benign paroxysmal vertigo, unspecified ear (07/26/17) Physical Therapy Treatment Note PT-OP-A Visit Information Start: 06/29/17 17:27 Freq: Status: Active Protocol: Document 07/26/17 12:05 DCW (Rec: 07/26/17 12:46 DCW [id number]) Out-Patient Physical Therapy Visit Information Visit Information Visit Type Treatment Note Visit Note 5 Minutes late Visit Start Time 12:05 Visit Stop Time 12:45 Total Visit Minutes 45 Visit Number 3 Number of REPLENISHMENT MERCHANDISING ASSOCIATE Visits 0 Evaluation Information Evaluation Date 06/29/17 PT-OP-B Current Condition Start: 06/29/17 17:27 Freq: Status: Active Protocol: Document 06/29/17 14:30 DCW (Rec: 06/29/17 17:52 DCW [id number]) Current Condition History of Current Condition Onset Date six months Current Complaints Pt has ongoing complaints of motion-induced imbalance History of Current Condition Pt is a 81 year old male presenting with a six month history of motion-induced imbalance. 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 Pt reports episodes last minutes to hours. Symptoms are provoked by looking up, rolling in bed, or moving too quickly. Pt denies recent hearing changes, tinnitus, dysarthria, discoordination, or decreased mentation/ consciousness. Pt reports symptoms are waxing and waning in nature. Pt denies hx of diabetes, head trauma, seizure , migraines, CVA, anxiety/ panic disorders, depression, or excessive smoking or drinking. Pt does have a history of medicine-controlled HTN and Hyperlipidemia. 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 Treatment Goals Patient/Caregiver Goals I want to feel more balanced when I'm up moving around. Prior Functional Status Baseline Function- ADL's Modified Independent Baseline Function- Mobility Modified Independent Baseline Function- Gait Uses walking stick for stability Current Functional Impairments (Reported) Functional Limitations- Mobility/Gait Pt reports poor balance, requires an assistive device or a hand on a wall at all times. Pt has suffered multiple falls. PT-OP-C Subjective Start: 06/29/17 17:27 Freq: Status: Active Protocol: Document 07/26/17 12:05 DCW (Rec: 07/26/17 12:46 DCW [id number]) OP-PT Subjective Patient Comments Patient Comments Pt reports he rushed over here today, and would appreciate being able to sit for a quick break. Notes he is no better today, but overall he has been feeling improvement. Patient Reported Progress Same PT-OP-Q Treatments Start: 06/29/17 17:27 Freq: Status: Active Protocol: Document 07/26/17 12:05 DCW (Rec: 07/26/17 12:46 DCW [id number]) Gym Equipment Shuttle Balance 1 Details Red - Wide ARMANI (Eyes open, Following target), Staggered Stance Reps/Duration 15' Neuro Re-Education Treatment Balance Activities 7 Details SLS Equipment @ rail 6 Details Narrow ARMANI /c eyes closed Equipment @ rail 5 Details [place] Surface Level Equipment Rail 4 Details Heel-toe Walking Surface Level Equipment Rail 3 Details Hurdles 2 Details Staggered Stance on foam, horizontal head turns Equipment Blue Foam PT-OP-T Assessment and Plan Start: 06/29/17 17:27 Freq: Status: Active Protocol: Document 07/26/17 12:05 DCW (Rec: 07/26/17 12:46 DCW [id number]) Physical Therapy Assessment Rehab Potential Rehabilitation Potential Good Impairments Impairments Balance Coordination Vestibular Goals Three Impairment CTSIB [facility] Goal (LTG) Pt to have at worst Moderate Sway in positions II- LTG Duration 08/10/17 Two Impairment DVA [facility] Goal (LTG) DVA to within three lines LTG Duration 08/10/17 One Impairment [place]-Hallpike Short Term Goal (STG) Negative [place] Bilaterally STG Duration 07/13/17 Assessment Summary Assessment Pt obviously fatigued today, required longer rest breaks between exercises Physical Therapy Plan Frequency and Duration Frequency of Treatment 1x/Week Duration of Treatment 10 weeks Plan of Care Start Date 06/29/17 Plan of Care End Date 09/06/17 Therapeutic Interventions Therapeutic Interventions Balance Training Canalithic Repositioning Coordination Training Gait Training Home Exercise Program Manual Therapy Patient/Caregiver Education Therapeutic Exercises Vestibular Rehabilitation Next Visit Focus/Plan Next Visit Plan Vestibular Adaptation/ Habituation, Static/Dynamic Balance training, CRM as needed
--- NOTE | 2017-08-02 12:47 | PT.OTN ---
Current Diagnoses Benign paroxysmal vertigo, unspecified ear (08/02/17) Physical Therapy Treatment Note PT-OP-A Visit Information Start: 06/29/17 17:27 Freq: Status: Active Protocol: Document 08/02/17 12:00 DCW (Rec: 08/02/17 12:46 DCW [id number]) Out-Patient Physical Therapy Visit Information Visit Information Visit Type Treatment Note Visit Start Time 12:00 Visit Stop Time 12:45 Total Visit Minutes 45 Visit Number 5 Number of TUTOR Visits 0 Evaluation Information Evaluation Date 06/29/17 PT-OP-B Current Condition Start: 06/29/17 17:27 Freq: Status: Active Protocol: Document 06/29/17 14:30 DCW (Rec: 06/29/17 17:52 DCW [id number]) Current Condition History of Current Condition Onset Date six months Current Complaints Pt has ongoing complaints of motion-induced imbalance History of Current Condition Pt is a 81 year old male presenting with a six month history of motion-induced imbalance. 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 Pt reports episodes last minutes to hours. Symptoms are provoked by looking up, rolling in bed, or moving too quickly. Pt denies recent hearing changes, tinnitus, dysarthria, discoordination, or decreased mentation/ consciousness. Pt reports symptoms are waxing and waning in nature. Pt denies hx of diabetes, head trauma, seizure , migraines, CVA, anxiety/ panic disorders, depression, or excessive smoking or drinking. Pt does have a history of medicine-controlled HTN and Hyperlipidemia. 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 Treatment Goals Patient/Caregiver Goals I want to feel more balanced when I'm up moving around. Prior Functional Status Baseline Function- ADL's Modified Independent Baseline Function- Mobility Modified Independent Baseline Function- Gait Uses walking stick for stability Current Functional Impairments (Reported) Functional Limitations- Mobility/Gait Pt reports poor balance, requires an assistive device or a hand on a wall at all times. Pt has suffered multiple falls. PT-OP-C Subjective Start: 06/29/17 17:27 Freq: Status: Active Protocol: Document 08/02/17 12:00 DCW (Rec: 08/02/17 12:46 DCW [id number]) OP-PT Subjective Patient Comments Patient Comments It's getting better. PT-OP-Q Treatments Start: 06/29/17 17:27 Freq: Status: Active Protocol: Document 08/02/17 12:00 DCW (Rec: 08/02/17 12:46 DCW [id number]) Gym Equipment Shuttle Balance 1 Details Red - Wide ARMANI (Eyes open, Following target), Staggered Stance Reps/Duration 15' Neuro Re-Education Treatment Balance Activities 7 Details SLS Equipment @ rail 5 Details [place] Surface Level Equipment Rail 4 Details Heel-toe Walking Surface Level Equipment Rail 3 Details Hurdles Comments Forward, Side-stepping 2 Details Staggered Stance on foam, horizontal head turns Equipment Blue Foam Other Activities 4 Details Resisted Backward Walk - Green T-band 3 Details Resisted Forward Walk - Green T-band 2 Details Resisted Side-Stepping /c Green T-band PT-OP-T Assessment and Plan Start: 06/29/17 17:27 Freq: Status: Active Protocol: Document 08/02/17 12:00 DCW (Rec: 08/02/17 12:46 DCW [id number]) Physical Therapy Assessment Rehab Potential Rehabilitation Potential Good Impairments Impairments Balance Coordination Vestibular Goals Three Impairment CTSIB Acid Condenser Goal (LTG) Pt to have at worst Moderate Sway in positions II- LTG Duration 08/10/17 Two Impairment DVA Acid Condenser Goal (LTG) DVA to within three lines LTG Duration 08/10/17 One Impairment [place]-Hallpike Short Term Goal (STG) Negative [place]-Hallpike Bilaterally STG Duration 07/13/17 Assessment Summary Assessment Pt improved today, tolerated increased activity with fewer rest breaks. Physical Therapy Plan Frequency and Duration Frequency of Treatment 1x/Week Duration of Treatment 10 weeks Plan of Care Start Date 06/29/17 Plan of Care End Date 09/06/17 Therapeutic Interventions Therapeutic Interventions Balance Training Canalithic Repositioning Coordination Training Gait Training Home Exercise Program Manual Therapy Patient/Caregiver Education Therapeutic Exercises Vestibular Rehabilitation Next Visit Focus/Plan Next Note Type Treatment Note Next Visit Plan Vestibular Adaptation/ Habituation, Static/Dynamic Balance training, CRM as needed
--- NOTE | 2017-08-22 16:43 | PT.OTN ---
Current Diagnoses Benign paroxysmal vertigo, unspecified ear (08/22/17) Physical Therapy Treatment Note PT-OP-A Visit Information Start: 06/29/17 17:27 Freq: Status: Active Protocol: Document 08/22/17 16:00 DCW (Rec: 08/22/17 16:43 DCW [id number]) Out-Patient Physical Therapy Visit Information Visit Information Visit Type Treatment Note Visit Start Time 16:00 Visit Stop Time 16:45 Total Visit Minutes 45 Visit Number 6 Number of VOCATIONAL REHABILITATION SPECIALIST Visits 0 Evaluation Information Evaluation Date 06/29/17 PT-OP-B Current Condition Start: 06/29/17 17:27 Freq: Status: Active Protocol: Document 06/29/17 14:30 DCW (Rec: 06/29/17 17:52 DCW [id number]) Current Condition History of Current Condition Onset Date six months Current Complaints Pt has ongoing complaints of motion-induced imbalance History of Current Condition Pt is a 81 year old male presenting with a six month history of motion-induced imbalance. 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 Pt reports episodes last minutes to hours. Symptoms are provoked by looking up, rolling in bed, or moving too quickly. Pt denies recent hearing changes, tinnitus, dysarthria, discoordination, or decreased mentation/ consciousness. Pt reports symptoms are waxing and waning in nature. Pt denies hx of diabetes, head trauma, seizure , migraines, CVA, anxiety/ panic disorders, depression, or excessive smoking or drinking. Pt does have a history of medicine-controlled HTN and Hyperlipidemia. 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 Treatment Goals Patient/Caregiver Goals I want to feel more balanced when I'm up moving around. Prior Functional Status Baseline Function- ADL's Modified Independent Baseline Function- Mobility Modified Independent Baseline Function- Gait Uses walking stick for stability Current Functional Impairments (Reported) Functional Limitations- Mobility/Gait Pt reports poor balance, requires an assistive device or a hand on a wall at all times. Pt has suffered multiple falls. PT-OP-C Subjective Start: 06/29/17 17:27 Freq: Status: Active Protocol: Document 08/22/17 16:00 DCW (Rec: 08/22/17 16:43 DCW [id number]) OP-PT Subjective Patient Comments Patient Comments I'm not as good as I was yesterday, but I'm better than I was the day before that. PT-OP-D Balance Start: 06/29/17 17:27 Freq: Status: Active Protocol: Document 06/29/17 14:30 DCW (Rec: 06/29/17 17:52 DCW [id number]) OP-PT Balance Assessment Sitting Balance Static Sitting Balance Ability Normal Dynamic Sitting Balance Ability Normal Standing Balance Static Standing Balance Ability Fair Dynamic Standing Balance Ability Poor Balance Tests CTSIB CTSIB Position 1 Mild Sway CTSIB Position 2 Fall Reaction CTSIB Position 3 Fall Reaction CTSIB Position 4 Fall Reaction CTSIB Position 5 Fall Reaction CTSIB Position 6 Fall Reaction Downing Fall Scale Copyright Permission Chang LEI, Chang RM, Leif SJ. Development of a scale to identify the fall- prone patient. Can J Aging 1989;8;366-7. Shelli Downing (2009). Preventing patient falls. (2nd ed). [place]: Knowles. PT-OP-E Functional Tests Start: 07/05/17 16:49 Freq: Status: Active Protocol: Document 07/05/17 15:15 DCW (Rec: 07/05/17 17:00 DCW [id number]) Functional Tests Dynamic Gait Index (DGI) Score 13 DGI Impairment Rating 40 to <60% Impaired (Score 10- 14) PT-OP-O Vestibular Start: 06/29/17 17:27 Freq: Status: Active Protocol: Document 06/29/17 14:30 DCW (Rec: 06/29/17 17:52 DCW [id number]) Vestibular Assessment Screening Tests Vestibular Artery Screen Negative Auditory Tests Rivero Test Negative Rinne Test Negative Air Conduction Results Equal Visual Testing Smooth Pursuits Horizontal Negative Saccades Horizontal Negative Gaze Evoked Nystagmus With Fixation Negative Gaze Evoked Nystagmus Without Fixation Negative Heave Test Positive Right Thrust Head Positive Right DVA (Line Degradation) 4 Head Shake Positive Positional Testing [place]-Hallpike Positive Left Negative Right Rolling Test Negative Left Negative Right Supine to Sit Positive PT-OP-Q Treatments Start: 06/29/17 17:27 Freq: Status: Active Protocol: Document 08/22/17 16:00 DCW (Rec: 07/10/18 16:43 DCW [id number]) Gym Equipment Shuttle Balance 1 Details Red - Wide ARMANI (Eyes open, Following target), Staggered Stance Reps/Duration 15' Neuro Re-Education Treatment Balance Activities 5 Details [place] Surface Level Equipment Rail 4 Details Heel-toe Walking Surface Level Equipment Rail 3 Details Hurdles Comments Forward, Side-stepping 2 Details Staggered Stance on foam, horizontal head turns Equipment Blue Foam Other Activities 4 Details Resisted Backward Walk - Green T-band 3 Details Resisted Forward Walk - Green T-band 2 Details Resisted Side-Stepping /c Green T-band PT-OP-T Assessment and Plan Start: 06/29/17 17:27 Freq: Status: Active Protocol: Document 08/22/17 16:00 DCW (Rec: 08/22/17 16:43 DCW [id number]) Physical Therapy Assessment Rehab Potential Rehabilitation Potential Good Impairments Impairments Balance Coordination Vestibular Goals Three Impairment CTSIB Sterile Supply Technician Goal (LTG) Pt to have at worst Moderate Sway in positions II- LTG Duration 08/10/17 Two Impairment DVA Longterm Goal (LTG) DVA to within three lines LTG Duration 08/10/17 One Impairment [place]-Hallpike Short Term Goal (STG) Negative [place]-Hallpike Bilaterally STG Duration 07/13/17 Assessment Summary Assessment Pt appeared to exhibit improved balance today, especially performing eyes open balance challenges Physical Therapy Plan Frequency and Duration Frequency of Treatment 1x/Week Duration of Treatment 10 weeks Plan of Care Start Date 06/29/17 Plan of Care End Date 09/06/17 Therapeutic Interventions Therapeutic Interventions Balance Training Canalithic Repositioning Coordination Training Gait Training Home Exercise Program Manual Therapy Patient/Caregiver Education Therapeutic Exercises Vestibular Rehabilitation Next Visit Focus/Plan Next Note Type Treatment Note Next Visit Plan Vestibular Adaptation/ Habituation, Static/Dynamic Balance training, CRM as needed
--- NOTE | 2017-09-01 10:29 | PT.OTN ---
Current Diagnoses Benign paroxysmal vertigo, unspecified ear (09/01/17) Physical Therapy Treatment Note PT-OP-A Visit Information Start: 06/29/17 17:27 Freq: Status: Active Protocol: Document 09/01/17 09:45 DCW (Rec: 09/01/17 10:29 DCW [id number]) Out-Patient Physical Therapy Visit Information Visit Information Visit Type Treatment Note Visit Start Time 09:45 Visit Stop Time 10:30 Total Visit Minutes 45 Visit Number 7 Number of ENGINE MECHANIC Visits 0 Evaluation Information Evaluation Date 06/29/17 PT-OP-B Current Condition Start: 06/29/17 17:27 Freq: Status: Active Protocol: Document 06/29/17 14:30 DCW (Rec: 06/29/17 17:52 DCW [id number]) Current Condition History of Current Condition Onset Date six months Current Complaints Pt has ongoing complaints of motion-induced imbalance History of Current Condition Pt is a 81 year old male presenting with a six month history of motion-induced imbalance. 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 Pt reports episodes last minutes to hours. Symptoms are provoked by looking up, rolling in bed, or moving too quickly. Pt denies recent hearing changes, tinnitus, dysarthria, discoordination, or decreased mentation/ consciousness. Pt reports symptoms are waxing and waning in nature. Pt denies hx of diabetes, head trauma, seizure , migraines, CVA, anxiety/ panic disorders, depression, or excessive smoking or drinking. Pt does have a history of medicine-controlled HTN and Hyperlipidemia. 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 Treatment Goals Patient/Caregiver Goals I want to feel more balanced when I'm up moving around. Prior Functional Status Baseline Function- ADL's Modified Independent Baseline Function- Mobility Modified Independent Baseline Function- Gait Uses walking stick for stability Current Functional Impairments (Reported) Functional Limitations- Mobility/Gait Pt reports poor balance, requires an assistive device or a hand on a wall at all times. Pt has suffered multiple falls. PT-OP-C Subjective Start: 06/29/17 17:27 Freq: Status: Active Protocol: Document 09/01/17 09:45 DCW (Rec: 09/01/17 10:29 DCW [id number]) OP-PT Subjective Patient Comments Patient Comments I probably haven't changed since last time. PT-OP-D Balance Start: 06/29/17 17:27 Freq: Status: Active Protocol: Document 06/29/17 14:30 DCW (Rec: 06/29/17 17:52 DCW [id number]) OP-PT Balance Assessment Sitting Balance Static Sitting Balance Ability Normal Dynamic Sitting Balance Ability Normal Standing Balance Static Standing Balance Ability Fair Dynamic Standing Balance Ability Poor Balance Tests CTSIB CTSIB Position 1 Mild Sway CTSIB Position 2 Fall Reaction CTSIB Position 3 Fall Reaction CTSIB Position 4 Fall Reaction CTSIB Position 5 Fall Reaction CTSIB Position 6 Fall Reaction Downing Fall Scale Copyright Permission Chang JM, Chang RM, Leif SJ. Development of a scale to identify the fall- prone patient. Can J Aging 1989;8;366-7. Shelli Downing (2009). Preventing patient falls. (2nd ed). [place]: Knowles. PT-OP-E Functional Tests Start: 07/05/17 16:49 Freq: Status: Active Protocol: Document 07/05/17 15:15 DCW (Rec: 07/05/17 17:00 DCW [id number]) Functional Tests Dynamic Gait Index (DGI) Score 13 DGI Impairment Rating 40 to <60% Impaired (Score 10- 14) PT-OP-O Vestibular Start: 06/29/17 17:27 Freq: Status: Active Protocol: Document 06/29/17 14:30 DCW (Rec: 06/29/17 17:52 DCW [id number]) Vestibular Assessment Screening Tests Vestibular Artery Screen Negative Auditory Tests Rivero Test Negative Rinne Test Negative Air Conduction Results Equal Visual Testing Smooth Pursuits Horizontal Negative Saccades Horizontal Negative Gaze Evoked Nystagmus With Fixation Negative Gaze Evoked Nystagmus Without Fixation Negative Heave Test Positive Right Thrust Head Positive Right DVA (Line Degradation) 4 Head Shake Positive Positional Testing [place]-Hallpike Positive Left Negative Right Rolling Test Negative Left Negative Right Supine to Sit Positive PT-OP-Q Treatments Start: 06/29/17 17:27 Freq: Status: Active Protocol: Document 09/01/17 09:45 DCW (Rec: 09/01/17 10:29 DCW [id number]) Gym Equipment Shuttle Balance 1 Details Red - Wide ARMANI (Eyes open, Following target), Staggered Stance Reps/Duration 15' Neuro Re-Education Treatment Balance Activities 7 Details SLS Equipment @ rail 6 Details Narrow ARMANI /c eyes closed Equipment @ rail 5 Details [place] Surface Level Equipment Rail 4 Details Heel-toe Walking Surface Level Equipment Rail 3 Details Hurdles Comments Forward, Side-stepping 2 Details Staggered Stance on foam, horizontal head turns Equipment Blue Foam PT-OP-T Assessment and Plan Start: 06/29/17 17:27 Freq: Status: Active Protocol: Document 09/01/17 09:45 DCW (Rec: 09/01/17 10:29 DCW [id number]) Physical Therapy Assessment Rehab Potential Rehabilitation Potential Good Impairments Impairments Balance Coordination Vestibular Goals Three Impairment CTSIB Jail Goal (LTG) Pt to have at worst Moderate Sway in positions II- LTG Duration 08/10/17 Two Impairment DVA Clinical Appeals Rn Goal (LTG) DVA to within three lines LTG Duration 08/10/17 One Impairment [place]-Hallpike Short Term Goal (STG) Negative [place]pike Bilaterally STG Duration 07/13/17 Assessment Summary Assessment Pt has not showed much change since last visit, but overall pt continues to trend upward. Physical Therapy Plan Frequency and Duration Frequency of Treatment 1x/Week Duration of Treatment 10 weeks Plan of Care Start Date 06/29/17 Plan of Care End Date 09/06/17 Therapeutic Interventions Therapeutic Interventions Balance Training Canalithic Repositioning Coordination Training Gait Training Home Exercise Program Manual Therapy Patient/Caregiver Education Therapeutic Exercises Vestibular Rehabilitation Next Visit Focus/Plan Next Note Type Progress Note Next Visit Plan Vestibular Adaptation/ Habituation, Static/Dynamic Balance training, CRM as needed
--- NOTE | 2017-09-20 13:02 | PT.OTN ---
Current Diagnoses Benign paroxysmal vertigo, unspecified ear (09/20/17) Physical Therapy Treatment Note PT-OP-A Visit Information Start: 06/29/17 17:27 Freq: Status: Active Protocol: Document 09/20/17 12:00 DCW (Rec: 09/20/17 13:02 DCW [id number]) Out-Patient Physical Therapy Visit Information Visit Information Visit Type Progress Note Visit Start Time 12:00 Visit Stop Time 12:45 Total Visit Minutes 45 Visit Number 8 Number of COLD FOOD PACKER Visits 0 Evaluation Information Evaluation Date 06/29/17 PT-OP-B Current Condition Start: 06/29/17 17:27 Freq: Status: Active Protocol: Document 09/20/17 12:00 DCW (Rec: 09/20/17 12:46 DCW [id number]) Current Condition History of Current Condition Onset Date six months Current Complaints Pt has ongoing complaints of motion-induced imbalance History of Current Condition Pt is a 81 year old male presenting with a six month history of motion-induced imbalance. 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 Pt reports episodes last minutes to hours. Symptoms are provoked by looking up, rolling in bed, or moving too quickly. Pt denies recent hearing changes, tinnitus, dysarthria, discoordination, or decreased mentation/ consciousness. Pt reports symptoms are waxing and waning in nature. Pt denies hx of diabetes, head trauma, seizure , migraines, CVA, anxiety/ panic disorders, depression, or excessive smoking or drinking. Pt does have a history of medicine-controlled HTN and Hyperlipidemia. 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 Treatment Goals Patient/Caregiver Goals I want to feel more balanced when I'm up moving around. Prior Functional Status Baseline Function- ADL's Modified Independent Baseline Function- Mobility Modified Independent Baseline Function- Gait Uses walking stick for stability Current Functional Impairments (Reported) Functional Limitations- Mobility/Gait Pt reports poor balance, requires an assistive device or a hand on a wall at all times. Pt has suffered multiple falls. PT-OP-C Subjective Start: 06/29/17 17:27 Freq: Status: Active Protocol: Document 09/20/17 12:00 DCW (Rec: 09/20/17 13:02 DCW [id number]) OP-PT Subjective Patient Comments Patient Comments I feel like I'm a little bit better. PT-OP-D Balance Start: 06/29/17 17:27 Freq: Status: Active Protocol: Document 09/20/17 12:00 DCW (Rec: 09/20/17 12:46 DCW [id number]) Balance Tests CTSIB CTSIB Position 1 Mild Sway CTSIB Position 2 Moderate Sway CTSIB Position 3 Moderate Sway CTSIB Position 4 Moderate Sway CTSIB Position 5 Fall Reaction CTSIB Position 6 Fall Reaction PT-OP-E Functional Tests Start: 07/05/17 16:49 Freq: Status: Active Protocol: Document 09/20/17 12:00 DCW (Rec: 09/20/17 12:46 DCW [id number]) Functional Tests Dynamic Gait Index (DGI) Score 16 DGI Impairment Rating 20 to <40% Impaired (Score 15- 19) PT-OP-K Range of Motion Start: 09/20/17 12:46 Freq: Status: Active Protocol: Document 09/20/17 12:00 DCW (Rec: 09/20/17 13:02 DCW [id number]) Cervical Spine Range of Motion Cervical Spine Active Degrees Testing Position Sitting Flexion 56 Extension 30 Rotation Left 35 Rotation Right 45 PT-OP-O Vestibular Start: 06/29/17 17:27 Freq: Status: Active Protocol: Document 09/20/17 12:00 DCW (Rec: 09/20/17 12:46 DCW [id number]) Vestibular Assessment Screening Tests Vestibular Artery Screen Negative Visual Testing Heave Test Positive Right Thrust Head Positive Right Positional Testing Mere-Hallpike Negative Left Negative Right Rolling Test Negative Left Negative Right Supine to Sit Negative PT-OP-Q Treatments Start: 06/29/17 17:27 Freq: Status: Active Protocol: Document 09/20/17 12:00 DCW (Rec: 09/20/17 13:02 DCW [id number]) Manual Therapy Treatment Manual Techniques 1 Type Positional Testing Neuro Re-Education Treatment Other Activities 5 Details CTSIB, DGI testing Reps/Duration 35 PT-OP-T Assessment and Plan Start: 06/29/17 17:27 Freq: Status: Active Protocol: Document 09/20/17 12:00 DCW (Rec: 09/20/17 13:02 DCW [id number]) Physical Therapy Assessment Rehab Potential Rehabilitation Potential Good Impairments Impairments Balance Coordination Vestibular Goals Four Impairment Limited cervical ROM Short Term Goal (STG) Cervical ROM to WNL STG Duration 10/08/17 Three Impairment CTSIB Assisted Goal (LTG) Pt to have at worst Moderate Sway in positions II- LTG Duration 10/21/17 - Improving Two Impairment DVA Astronomy Professor Goal (LTG) DVA to within three lines LTG Duration 10/21/17 One Impairment [place]-Hallpike Short Term Goal (STG) Negative [place]-Hallpike Bilaterally STG Duration Met Assessment Summary Assessment Objective measures are improving since initial evaluation, pt has continuing subjective complaints. Limited cervical ROM may indicate cervicogenic involvement in pt 's instability, should add cervical treatment to ongoing POC Physical Therapy Plan Frequency and Duration Frequency of Treatment 1x/Week Duration of Treatment 10 weeks Plan of Care Start Date 09/20/17 Plan of Care End Date 11/29/17 Therapeutic Interventions Therapeutic Interventions Balance Training Canalithic Repositioning Coordination Training Gait Training Home Exercise Program Joint Mobilizations Manual Therapy Patient/Caregiver Education Soft Tissue Mobilization Therapeutic Exercises Vestibular Rehabilitation Modalities Traction- Mechanical Next Visit Focus/Plan Next Note Type Progress Note Next Visit Plan Vestibular Adaptation/ Habituation, Static/Dynamic Balance training, CRM as needed. Addition of cervical STM and traction
--- NOTE | 2017-09-20 13:02 | PT.OPPOC ---
Current Diagnoses Benign paroxysmal vertigo, unspecified ear (09/20/17) Provider Visit Care Team Role Provider Type Aniyah Feliciano MD Attending Provider Physician Family Provider Primary Care Provider Specialty: Family Practice Address: [address] [place] [address], [facility] Email: [email or web address] Plan Of Care PT-OP-T Assessment and Plan Start: 06/29/17 17:27 Freq: Status: Active Protocol: Document 09/20/17 12:00 DCW (Rec: 09/20/17 13:02 DCW [id number]) Physical Therapy Assessment Rehab Potential Rehabilitation Potential Good Impairments Impairments Balance Coordination Vestibular Goals Four Impairment Limited cervical ROM Short Term Goal (STG) Cervical ROM to WNL STG Duration 10/08/17 Three Impairment CTSIB Integrated Campaign Manager Goal (LTG) Pt to have at worst Moderate Sway in positions II- LTG Duration 10/21/17 - Improving Two Impairment DVA Integrated Campaign Manager Goal (LTG) DVA to within three lines LTG Duration 10/21/17 One Impairment [place]-Hallpike Short Term Goal (STG) Negative Mere-Hallpike Bilaterally STG Duration Met Assessment Summary Assessment Objective measures are improving since initial evaluation, pt has continuing subjective complaints. Limited cervical ROM may indicate cervicogenic involvement in pt 's instability, should add cervical treatment to ongoing POC Physical Therapy Plan Frequency and Duration Frequency of Treatment 1x/Week Duration of Treatment 10 weeks Plan of Care Start Date 09/20/17 Plan of Care End Date 11/29/17 Therapeutic Interventions Therapeutic Interventions Balance Training Canalithic Repositioning Coordination Training Gait Training Home Exercise Program Joint Mobilizations Manual Therapy Patient/Caregiver Education Soft Tissue Mobilization Therapeutic Exercises Vestibular Rehabilitation Modalities Traction- Mechanical Next Visit Focus/Plan Next Note Type Progress Note Next Visit Plan Vestibular Adaptation/ Habituation, Static/Dynamic Balance training, CRM as needed. Addition of cervical STM and traction Plan of Care Dates Plan of Care Start Date 09/20/17 Plan of Care End Date 11/29/17 Please Sign and Return: I have reviewed this Plan of Care and certify that the skilled therapy services above are required to meet the patient?s needs. Physician Signature Date Printed Name and Credentials Clinical Instructor Signature Printed Name and Credentials
--- NOTE | 2017-09-26 12:43 | PT.OTN ---
Current Diagnoses Benign paroxysmal vertigo, unspecified ear (09/26/17) Physical Therapy Treatment Note PT-OP-A Visit Information Start: 06/29/17 17:27 Freq: Status: Active Protocol: Document 09/26/17 12:00 DCW (Rec: 09/26/17 12:43 DCW [id number]) Out-Patient Physical Therapy Visit Information Visit Information Visit Type Treatment Note Visit Start Time 12:00 Visit Stop Time 12:45 Total Visit Minutes 45 Visit Number 9 Number of JAVA GROOVY DEVELOPER Visits 0 Evaluation Information Evaluation Date 06/29/17 PT-OP-B Current Condition Start: 06/29/17 17:27 Freq: Status: Active Protocol: Document 09/20/17 12:00 DCW (Rec: 09/20/17 12:46 DCW [id number]) Current Condition History of Current Condition Onset Date six months Current Complaints Pt has ongoing complaints of motion-induced imbalance History of Current Condition Pt is a 81 year old male presenting with a six month history of motion-induced imbalance. 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 Pt reports episodes last minutes to hours. Symptoms are provoked by looking up, rolling in bed, or moving too quickly. Pt denies recent hearing changes, tinnitus, dysarthria, discoordination, or decreased mentation/ consciousness. Pt reports symptoms are waxing and waning in nature. Pt denies hx of diabetes, head trauma, seizure , migraines, CVA, anxiety/ panic disorders, depression, or excessive smoking or drinking. Pt does have a history of medicine-controlled HTN and Hyperlipidemia. 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 Treatment Goals Patient/Caregiver Goals I want to feel more balanced when I'm up moving around. Prior Functional Status Baseline Function- ADL's Modified Independent Baseline Function- Mobility Modified Independent Baseline Function- Gait Uses walking stick for stability Current Functional Impairments (Reported) Functional Limitations- Mobility/Gait Pt reports poor balance, requires an assistive device or a hand on a wall at all times. Pt has suffered multiple falls. PT-OP-C Subjective Start: 06/29/17 17:27 Freq: Status: Active Protocol: Document 09/26/17 12:00 DCW (Rec: 09/26/17 12:43 DCW [id number]) OP-PT Subjective Patient Comments Patient Comments I just came from the Chiropractor. He was working on C2. PT-OP-D Balance Start: 06/29/17 17:27 Freq: Status: Active Protocol: Document 09/20/17 12:00 DCW (Rec: 09/20/17 12:46 DCW [id number]) Balance Tests CTSIB CTSIB Position 1 Mild Sway CTSIB Position 2 Moderate Sway CTSIB Position 3 Moderate Sway CTSIB Position 4 Moderate Sway CTSIB Position 5 Fall Reaction CTSIB Position 6 Fall Reaction PT-OP-E Functional Tests Start: 07/05/17 16:49 Freq: Status: Active Protocol: Document 09/20/17 12:00 DCW (Rec: 09/20/17 12:46 DCW [id number]) Functional Tests Dynamic Gait Index (DGI) Score 16 DGI Impairment Rating 20 to <40% Impaired (Score 15- 19) PT-OP-K Range of Motion Start: 09/20/17 12:46 Freq: Status: Active Protocol: Document 09/20/17 12:00 DCW (Rec: 09/20/17 13:02 DCW [id number]) Cervical Spine Range of Motion Cervical Spine Active Degrees Testing Position Sitting Flexion 56 Extension 30 Rotation Left 35 Rotation Right 45 PT-OP-O Vestibular Start: 06/29/17 17:27 Freq: Status: Active Protocol: Document 09/20/17 12:00 DCW (Rec: 09/20/17 12:46 DCW [id number]) Vestibular Assessment Screening Tests Vestibular Artery Screen Negative Visual Testing Heave Test Positive Right Thrust Head Positive Right Positional Testing Mere-Hallpike Negative Left Negative Right Rolling Test Negative Left Negative Right Supine to Sit Negative PT-OP-Q Treatments Start: 06/29/17 17:27 Freq: Status: Active Protocol: Document 09/26/17 12:00 DCW (Rec: 09/26/17 12:43 DCW [id number]) Gym Equipment Shuttle Balance 1 Details Red - Wide ARMANI (Eyes open, Following target), Staggered Stance Reps/Duration 15' Therapeutic Exercises Sitting Exercises 1 Sitting Exercise Name Upper Trap stretch Side bilateral Manual Therapy Treatment Soft Tissue Mobilization 2 Body Location Suboccipitals Mobilization Type Sustained Pressure Intensity/Depth Superficial Body Position Supine 1 Body Location Upper Trap Mobilization Type Strain/Counterstrain Sustained Pressure Trigger Point Release Intensity/Depth Moderate Body Position Supine Manual Traction Cervical Body Position Supine PT-OP-T Assessment and Plan Start: 06/29/17 17:27 Freq: Status: Active Protocol: Document 09/26/17 12:00 DCW (Rec: 09/26/17 12:43 DCW [id number]) Physical Therapy Assessment Rehab Potential Rehabilitation Potential Good Impairments Impairments Balance Coordination Vestibular Goals Four Impairment Limited cervical ROM Short Term Goal (STG) Cervical ROM to WNL STG Duration 10/08/17 Three Impairment CTSIB Promotions Intern Goal (LTG) Pt to have at worst Moderate Sway in positions II- LTG Duration 10/21/17 - Improving Two Impairment DVA Jail Goal (LTG) DVA to within three lines LTG Duration 10/21/17 One Impairment [place]-Hallpike Short Term Goal (STG) Negative [place]-Hallpike Bilaterally STG Duration Met Assessment Summary Assessment Pt tolerated addition of manual therapy well, appeared to be appreciative of home stretching. Physical Therapy Plan Frequency and Duration Frequency of Treatment 1x/Week Duration of Treatment 10 weeks Plan of Care Start Date 09/20/17 Plan of Care End Date 11/29/17 Therapeutic Interventions Therapeutic Interventions Balance Training Canalithic Repositioning Coordination Training Gait Training Home Exercise Program Joint Mobilizations Manual Therapy Patient/Caregiver Education Soft Tissue Mobilization Therapeutic Exercises Vestibular Rehabilitation Modalities Traction- Mechanical Next Visit Focus/Plan Next Note Type Treatment Note Next Visit Plan Vestibular Adaptation/ Habituation, Static/Dynamic Balance training, CRM as needed. Addition of cervical STM and traction
--- NOTE | 2017-10-03 17:30 | PT.OTN ---
Current Diagnoses Benign paroxysmal vertigo, unspecified ear (10/03/17) Physical Therapy Treatment Note PT-OP-A Visit Information Start: 06/29/17 17:27 Freq: Status: Active Protocol: Document 10/03/17 16:59 EA (Rec: 10/03/17 16:59 EA [id number]) Out-Patient Physical Therapy Visit Information Visit Information Total Visit Minutes 40 PT-OP-B Current Condition Start: 06/29/17 17:27 Freq: Status: Active Protocol: Document 09/20/17 12:00 DCW (Rec: 09/20/17 12:46 DCW [id number]) Current Condition History of Current Condition Onset Date six months Current Complaints Pt has ongoing complaints of motion-induced imbalance History of Current Condition Pt is a 81 year old male presenting with a six month history of motion-induced imbalance. 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 Pt reports episodes last minutes to hours. Symptoms are provoked by looking up, rolling in bed, or moving too quickly. Pt denies recent hearing changes, tinnitus, dysarthria, discoordination, or decreased mentation/ consciousness. Pt reports symptoms are waxing and waning in nature. Pt denies hx of diabetes, head trauma, seizure , migraines, CVA, anxiety/ panic disorders, depression, or excessive smoking or drinking. Pt does have a history of medicine-controlled HTN and Hyperlipidemia. 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 Treatment Goals Patient/Caregiver Goals I want to feel more balanced when I'm up moving around. Prior Functional Status Baseline Function- ADL's Modified Independent Baseline Function- Mobility Modified Independent Baseline Function- Gait Uses walking stick for stability Current Functional Impairments (Reported) Functional Limitations- Mobility/Gait Pt reports poor balance, requires an assistive device or a hand on a wall at all times. Pt has suffered multiple falls. PT-OP-C Subjective Start: 06/29/17 17:27 Freq: Status: Active Protocol: Document 10/03/17 16:55 EA (Rec: 10/03/17 16:59 EA [id number]) OP-PT Subjective Patient Comments Patient Comments Pt reports neck exercises improves his balance PT-OP-D Balance Start: 06/29/17 17:27 Freq: Status: Active Protocol: Document 09/20/17 12:00 DCW (Rec: 09/20/17 12:46 DCW [id number]) Balance Tests CTSIB CTSIB Position 1 Mild Sway CTSIB Position 2 Moderate Sway CTSIB Position 3 Moderate Sway CTSIB Position 4 Moderate Sway CTSIB Position 5 Fall Reaction CTSIB Position 6 Fall Reaction PT-OP-E Functional Tests Start: 07/05/17 16:49 Freq: Status: Active Protocol: Document 09/20/17 12:00 DCW (Rec: 09/20/17 12:46 DCW [id number]) Functional Tests Dynamic Gait Index (DGI) Score 16 DGI Impairment Rating 20 to <40% Impaired (Score 15- 19) PT-OP-K Range of Motion Start: 09/20/17 12:46 Freq: Status: Active Protocol: Document 09/20/17 12:00 DCW (Rec: 09/20/17 13:02 DCW [id number]) Cervical Spine Range of Motion Cervical Spine Active Degrees Testing Position Sitting Flexion 56 Extension 30 Rotation Left 35 Rotation Right 45 PT-OP-O Vestibular Start: 06/29/17 17:27 Freq: Status: Active Protocol: Document 09/20/17 12:00 DCW (Rec: 09/20/17 12:46 DCW [id number]) Vestibular Assessment Screening Tests Vestibular Artery Screen Negative Visual Testing Heave Test Positive Right Thrust Head Positive Right Positional Testing Mere-Hallpike Negative Left Negative Right Rolling Test Negative Left Negative Right Supine to Sit Negative PT-OP-Q Treatments Start: 06/29/17 17:27 Freq: Status: Active Protocol: Document 10/03/17 16:55 EA (Rec: 10/03/17 16:59 EA [id number]) Neuro Re-Education Treatment Balance Activities 7 Details SLS 6 Details Narrow ARMANI /c eyes closed 5 Details [place] 4 Details Heel-toe Walking 3 Details Hurdles 2 Details Staggered Stance on foam, horizontal head turns 1 Details Narrow ARMANI (1X viewing, eyes closed), Semi-tandem Equipment Hester Foam Other Activities 4 Details Resisted Backward Walk - Green T-band 3 Details Resisted Forward Walk - Green T-band 2 Details Resisted Side-Stepping /c Green T-band PT-OP-T Assessment and Plan Start: 06/29/17 17:27 Freq: Status: Active Protocol: Document 10/03/17 16:55 EA (Rec: 10/03/17 16:59 EA [id number]) Physical Therapy Assessment Assessment Summary Assessment Tolerated treatment well. Physical Therapy Plan Next Visit Focus/Plan Next Note Type Treatment Note Next Visit Plan Vestibular Adaptation/ Habituation, Static/Dynamic Balance training, CRM as needed. Addition of cervical STM and traction
--- NOTE | 2017-10-11 11:14 | PT.OTN ---
Current Diagnoses Benign paroxysmal vertigo, unspecified ear (10/11/17) Physical Therapy Treatment Note PT-OP-A Visit Information Start: 06/29/17 17:27 Freq: Status: Active Protocol: Document 10/11/17 10:30 DCW (Rec: 10/11/17 11:14 DCW [id number]) Out-Patient Physical Therapy Visit Information Visit Information Visit Type Treatment Note Visit Start Time 10:30 Visit Stop Time 11:15 Total Visit Minutes 45 Visit Number 11 Number of FLOORWORKER Visits 0 Evaluation Information Evaluation Date 06/29/17 PT-OP-B Current Condition Start: 06/29/17 17:27 Freq: Status: Active Protocol: Document 09/20/17 12:00 DCW (Rec: 09/20/17 12:46 DCW [id number]) Current Condition History of Current Condition Onset Date six months Current Complaints Pt has ongoing complaints of motion-induced imbalance History of Current Condition Pt is a 81 year old male presenting with a six month history of motion-induced imbalance. 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 Pt reports episodes last minutes to hours. Symptoms are provoked by looking up, rolling in bed, or moving too quickly. Pt denies recent hearing changes, tinnitus, dysarthria, discoordination, or decreased mentation/ consciousness. Pt reports symptoms are waxing and waning in nature. Pt denies hx of diabetes, head trauma, seizure , migraines, CVA, anxiety/ panic disorders, depression, or excessive smoking or drinking. Pt does have a history of medicine-controlled HTN and Hyperlipidemia. 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 Treatment Goals Patient/Caregiver Goals I want to feel more balanced when I'm up moving around. Prior Functional Status Baseline Function- ADL's Modified Independent Baseline Function- Mobility Modified Independent Baseline Function- Gait Uses walking stick for stability Current Functional Impairments (Reported) Functional Limitations- Mobility/Gait Pt reports poor balance, requires an assistive device or a hand on a wall at all times. Pt has suffered multiple falls. PT-OP-C Subjective Start: 06/29/17 17:27 Freq: Status: Active Protocol: Document 10/11/17 10:30 DCW (Rec: 10/11/17 11:14 DCW [id number]) OP-PT Subjective Patient Comments Patient Comments I feel the same every day, but how I feel and how steady I am are completely independent from each other. PT-OP-D Balance Start: 06/29/17 17:27 Freq: Status: Active Protocol: Document 09/20/17 12:00 DCW (Rec: 09/20/17 12:46 DCW [id number]) Balance Tests CTSIB CTSIB Position 1 Mild Sway CTSIB Position 2 Moderate Sway CTSIB Position 3 Moderate Sway CTSIB Position 4 Moderate Sway CTSIB Position 5 Fall Reaction CTSIB Position 6 Fall Reaction PT-OP-E Functional Tests Start: 07/05/17 16:49 Freq: Status: Active Protocol: Document 09/20/17 12:00 DCW (Rec: 09/20/17 12:46 DCW [id number]) Functional Tests Dynamic Gait Index (DGI) Score 16 DGI Impairment Rating 20 to <40% Impaired (Score 15- 19) PT-OP-K Range of Motion Start: 09/20/17 12:46 Freq: Status: Active Protocol: Document 09/20/17 12:00 DCW (Rec: 09/20/17 13:02 DCW [id number]) Cervical Spine Range of Motion Cervical Spine Active Degrees Testing Position Sitting Flexion 56 Extension 30 Rotation Left 35 Rotation Right 45 PT-OP-O Vestibular Start: 06/29/17 17:27 Freq: Status: Active Protocol: Document 09/20/17 12:00 DCW (Rec: 09/20/17 12:46 DCW [id number]) Vestibular Assessment Screening Tests Vestibular Artery Screen Negative Visual Testing Heave Test Positive Right Thrust Head Positive Right Positional Testing Mere-Hallpike Negative Left Negative Right Rolling Test Negative Left Negative Right Supine to Sit Negative PT-OP-Q Treatments Start: 06/29/17 17:27 Freq: Status: Active Protocol: Document 10/11/17 10:30 DCW (Rec: 10/11/17 11:14 DCW [id number]) Gym Equipment Shuttle Balance 1 Details Red - Wide ARMANI (Eyes open, Following target), Staggered Stance Reps/Duration 15' Manual Therapy Treatment Soft Tissue Mobilization 2 Body Location Suboccipitals Mobilization Type Sustained Pressure Intensity/Depth Superficial Body Position Supine 1 Body Location Upper Trap Mobilization Type Strain/Counterstrain Sustained Pressure Trigger Point Release Intensity/Depth Moderate Body Position Supine Manual Traction Cervical Body Position Supine Neuro Re-Education Treatment Other Activities 4 Details Resisted Backward Walk - Green T-band 3 Details Resisted Forward Walk - Green T-band 2 Details Resisted Side-Stepping /c Green T-band PT-OP-T Assessment and Plan Start: 06/29/17 17:27 Freq: Status: Active Protocol: Document 10/11/17 10:30 DCW (Rec: 10/11/17 11:14 DCW [id number]) Physical Therapy Assessment Rehab Potential Rehabilitation Potential Good Impairments Impairments Balance Coordination Vestibular Goals Four Impairment Limited cervical ROM Short Term Goal (STG) Cervical ROM to WNL STG Duration 10/08/17 Three Impairment CTSIB Alf Goal (LTG) Pt to have at worst Moderate Sway in positions II- LTG Duration 10/21/17 - Improving Two Impairment DVA Alf Goal (LTG) DVA to within three lines LTG Duration 10/21/17 One Impairment Mere-Hallpike Short Term Goal (STG) Negative [place]-Hallpike Bilaterally STG Duration Met Assessment Summary Assessment Pt feels that the manual therapy has helped his instability Physical Therapy Plan Frequency and Duration Frequency of Treatment 1x/Week Duration of Treatment 10 weeks Plan of Care Start Date 09/20/17 Plan of Care End Date 11/29/17 Therapeutic Interventions Therapeutic Interventions Balance Training Canalithic Repositioning Coordination Training Gait Training Home Exercise Program Joint Mobilizations Manual Therapy Patient/Caregiver Education Soft Tissue Mobilization Therapeutic Exercises Vestibular Rehabilitation Modalities Traction- Mechanical Next Visit Focus/Plan Next Note Type Treatment Note Next Visit Plan Vestibular Adaptation/ Habituation, Static/Dynamic Balance training, CRM as needed. Addition of cervical STM and traction
--- NOTE | 2017-10-30 17:30 | PT.OTN ---
Current Diagnoses Benign paroxysmal vertigo, unspecified ear (10/30/17) Physical Therapy Treatment Note PT-OP-A Visit Information Start: 06/29/17 17:27 Freq: Status: Active Protocol: Document 10/30/17 16:45 DCW (Rec: 10/30/17 17:30 DCW [id number]) Out-Patient Physical Therapy Visit Information Visit Information Visit Type Treatment Note Visit Start Time 16:45 Visit Stop Time 17:30 Total Visit Minutes 45 Visit Number 12 Number of LIQUID HYDROGEN PLANT OPERATOR Visits 0 Evaluation Information Evaluation Date 06/29/17 PT-OP-B Current Condition Start: 06/29/17 17:27 Freq: Status: Active Protocol: Document 09/20/17 12:00 DCW (Rec: 09/20/17 12:46 DCW [id number]) Current Condition History of Current Condition Onset Date six months Current Complaints Pt has ongoing complaints of motion-induced imbalance History of Current Condition Pt is a 81 year old male presenting with a six month history of motion-induced imbalance. 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 Pt reports episodes last minutes to hours. Symptoms are provoked by looking up, rolling in bed, or moving too quickly. Pt denies recent hearing changes, tinnitus, dysarthria, discoordination, or decreased mentation/ consciousness. Pt reports symptoms are waxing and waning in nature. Pt denies hx of diabetes, head trauma, seizure , migraines, CVA, anxiety/ panic disorders, depression, or excessive smoking or drinking. Pt does have a history of medicine-controlled HTN and Hyperlipidemia. 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 Treatment Goals Patient/Caregiver Goals I want to feel more balanced when I'm up moving around. Prior Functional Status Baseline Function- ADL's Modified Independent Baseline Function- Mobility Modified Independent Baseline Function- Gait Uses walking stick for stability Current Functional Impairments (Reported) Functional Limitations- Mobility/Gait Pt reports poor balance, requires an assistive device or a hand on a wall at all times. Pt has suffered multiple falls. PT-OP-C Subjective Start: 06/29/17 17:27 Freq: Status: Active Protocol: Document 10/30/17 16:45 DCW (Rec: 10/30/17 17:30 DCW [id number]) OP-PT Subjective Patient Comments Patient Comments Pt reports that he felt much better following the manual treatment on his neck last time, and he went from sleeping 3 hours a night to 5- 6 hours. PT-OP-D Balance Start: 06/29/17 17:27 Freq: Status: Active Protocol: Document 09/20/17 12:00 DCW (Rec: 09/20/17 12:46 DCW [id number]) Balance Tests CTSIB CTSIB Position 1 Mild Sway CTSIB Position 2 Moderate Sway CTSIB Position 3 Moderate Sway CTSIB Position 4 Moderate Sway CTSIB Position 5 Fall Reaction CTSIB Position 6 Fall Reaction PT-OP-E Functional Tests Start: 07/05/17 16:49 Freq: Status: Active Protocol: Document 09/20/17 12:00 DCW (Rec: 09/20/17 12:46 DCW [id number]) Functional Tests Dynamic Gait Index (DGI) Score 16 DGI Impairment Rating 20 to <40% Impaired (Score 15- 19) PT-OP-K Range of Motion Start: 09/20/17 12:46 Freq: Status: Active Protocol: Document 09/20/17 12:00 DCW (Rec: 09/20/17 13:02 DCW [id number]) Cervical Spine Range of Motion Cervical Spine Active Degrees Testing Position Sitting Flexion 56 Extension 30 Rotation Left 35 Rotation Right 45 PT-OP-O Vestibular Start: 18 17:27 Freq: Status: Active Protocol: Document 09/20/17 12:00 DCW (Rec: 09/20/17 12:46 DCW [id number]) Vestibular Assessment Screening Tests Vestibular Artery Screen Negative Visual Testing Heave Test Positive Right Thrust Head Positive Right Positional Testing [place]-Hallpike Negative Left Negative Right Rolling Test Negative Left Negative Right Supine to Sit Negative PT-OP-Q Treatments Start: 06/29/17 17:27 Freq: Status: Active Protocol: Document 10/30/17 16:45 DCW (Rec: 10/30/17 17:30 DCW [id number]) Gym Equipment Shuttle Balance 1 Details Red - Wide ARMANI (Eyes open, Following target), Staggered Stance Reps/Duration 15' Manual Therapy Treatment Soft Tissue Mobilization 2 Body Location Suboccipitals Mobilization Type Sustained Pressure Intensity/Depth Superficial Body Position Supine 1 Body Location Upper Trap Mobilization Type Strain/Counterstrain Sustained Pressure Trigger Point Release Intensity/Depth Moderate Body Position Supine Manual Traction Cervical Body Position Supine Neuro Re-Education Treatment Other Activities 4 Details Resisted Backward Walk - Green T-band 3 Details Resisted Forward Walk - Green T-band 2 Details Resisted Side-Stepping /c Green T-band PT-OP-T Assessment and Plan Start: 06/29/17 17:27 Freq: Status: Active Protocol: Document 10/30/17 16:45 DCW (Rec: 10/30/17 17:30 DCW [id number]) Physical Therapy Assessment Impairments Impairments Balance Coordination Vestibular Goals Four Impairment Limited cervical ROM Short Term Goal (STG) Cervical ROM to WNL STG Duration 10/08/17 Three Impairment CTSIB Decorating Machine Tender Goal (LTG) Pt to have at worst Moderate Sway in positions II- LTG Duration 10/21/17 - Improving Two Impairment DVA Decorating Machine Tender Goal (LTG) DVA to within three lines LTG Duration 10/21/17 One Impairment [place]-Hallpike Short Term Goal (STG) Negative Mere-Hallpike Bilaterally STG Duration Met Assessment Summary Assessment Pt getting up out of his chair with less difficulty over the last few weeks, appears to be displaying improvement with stability. Physical Therapy Plan Frequency and Duration Frequency of Treatment 1x/Week Duration of Treatment 10 weeks Plan of Care Start Date 09/20/17 Plan of Care End Date 11/29/17 Therapeutic Interventions Therapeutic Interventions Balance Training Canalithic Repositioning Coordination Training Gait Training Home Exercise Program Joint Mobilizations Manual Therapy Patient/Caregiver Education Soft Tissue Mobilization Therapeutic Exercises Vestibular Rehabilitation Modalities Traction- Mechanical Next Visit Focus/Plan Next Note Type Treatment Note Next Visit Plan Vestibular Adaptation/ Habituation, Static/Dynamic Balance training, CRM as needed. Addition of cervical STM and traction
--- NOTE | 2017-11-07 17:29 | PT.OTN ---
Current Diagnoses Benign paroxysmal vertigo, unspecified ear (11/07/17) Physical Therapy Treatment Note PT-OP-A Visit Information Start: 06/29/17 17:27 Freq: Status: Active Protocol: Document 11/07/17 16:45 DCW (Rec: 11/07/17 17:29 DCW [id number]) Out-Patient Physical Therapy Visit Information Visit Information Visit Type Treatment Note Visit Start Time 16:45 Visit Stop Time 17:30 Total Visit Minutes 45 Visit Number 13 Number of SHOPPER'S AIDE Visits 0 Evaluation Information Evaluation Date 06/29/17 PT-OP-B Current Condition Start: 06/29/17 17:27 Freq: Status: Active Protocol: Document 09/20/17 12:00 DCW (Rec: 09/20/17 12:46 DCW [id number]) Current Condition History of Current Condition Onset Date six months Current Complaints Pt has ongoing complaints of motion-induced imbalance History of Current Condition Pt is a 81 year old male presenting with a six month history of motion-induced imbalance. 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 Pt reports episodes last minutes to hours. Symptoms are provoked by looking up, rolling in bed, or moving too quickly. Pt denies recent hearing changes, tinnitus, dysarthria, discoordination, or decreased mentation/ consciousness. Pt reports symptoms are waxing and waning in nature. Pt denies hx of diabetes, head trauma, seizure , migraines, CVA, anxiety/ panic disorders, depression, or excessive smoking or drinking. Pt does have a history of medicine-controlled HTN and Hyperlipidemia. 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 Treatment Goals Patient/Caregiver Goals I want to feel more balanced when I'm up moving around. Prior Functional Status Baseline Function- ADL's Modified Independent Baseline Function- Mobility Modified Independent Baseline Function- Gait Uses walking stick for stability Current Functional Impairments (Reported) Functional Limitations- Mobility/Gait Pt reports poor balance, requires an assistive device or a hand on a wall at all times. Pt has suffered multiple falls. PT-OP-C Subjective Start: 06/29/17 17:27 Freq: Status: Active Protocol: Document 11/07/17 16:45 DCW (Rec: 11/07/17 17:29 DCW [id number]) OP-PT Subjective Patient Comments Patient Comments Pt continues to report improvement with recent manual therapy. PT-OP-D Balance Start: 06/29/17 17:27 Freq: Status: Active Protocol: Document 09/20/17 12:00 DCW (Rec: 09/20/17 12:46 DCW [id number]) Balance Tests CTSIB CTSIB Position 1 Mild Sway CTSIB Position 2 Moderate Sway CTSIB Position 3 Moderate Sway CTSIB Position 4 Moderate Sway CTSIB Position 5 Fall Reaction CTSIB Position 6 Fall Reaction PT-OP-E Functional Tests Start: 07/05/17 16:49 Freq: Status: Active Protocol: Document 09/20/17 12:00 DCW (Rec: 09/20/17 12:46 DCW [id number]) Functional Tests Dynamic Gait Index (DGI) Score 16 DGI Impairment Rating 20 to <40% Impaired (Score 15- 19) PT-OP-K Range of Motion Start: 09/20/17 12:46 Freq: Status: Active Protocol: Document 09/20/17 12:00 DCW (Rec: 09/20/17 13:02 DCW [id number]) Cervical Spine Range of Motion Cervical Spine Active Degrees Testing Position Sitting Flexion 56 Extension 30 Rotation Left 35 Rotation Right 45 PT-OP-O Vestibular Start: 06/29/17 17:27 Freq: Status: Active Protocol: Document 09/20/17 12:00 DCW (Rec: 09/20/17 12:46 DCW [id number]) Vestibular Assessment Screening Tests Vestibular Artery Screen Negative Visual Testing Heave Test Positive Right Thrust Head Positive Right Positional Testing Mere-Hallpike Negative Left Negative Right Rolling Test Negative Left Negative Right Supine to Sit Negative PT-OP-Q Treatments Start: 06/29/17 17:27 Freq: Status: Active Protocol: Document 11/07/17 16:45 DCW (Rec: 11/07/17 17:29 DCW [id number]) Manual Therapy Treatment Soft Tissue Mobilization 2 Body Location Suboccipitals Mobilization Type Sustained Pressure Intensity/Depth Superficial Body Position Supine 1 Body Location Upper Trap Mobilization Type Strain/Counterstrain Sustained Pressure Trigger Point Release Intensity/Depth Moderate Body Position Supine Manual Traction Cervical Body Position Supine PT-OP-T Assessment and Plan Start: 06/29/17 17:27 Freq: Status: Active Protocol: Document 11/07/17 16:45 DCW (Rec: 11/07/17 17:29 DCW [id number]) Physical Therapy Assessment Impairments Impairments Balance Coordination Vestibular Goals Four Impairment Limited cervical ROM Short Term Goal (STG) Cervical ROM to WNL STG Duration 10/08/17 Three Impairment CTSIB Keyboard Instrument Repairer Goal (LTG) Pt to have at worst Moderate Sway in positions II- LTG Duration 10/21/17 - Improving Two Impairment DVA Keyboard Instrument Repairer Goal (LTG) DVA to within three lines LTG Duration 10/21/17 One Impairment [place]-Hallpike Short Term Goal (STG) Negative Mere-Hallpike Bilaterally STG Duration Met Assessment Summary Assessment Pt continuing to improve, will likely increase frequency to 2x/week with next POC. Physical Therapy Plan Frequency and Duration Frequency of Treatment 1x/Week Duration of Treatment 10 weeks Plan of Care Start Date 09/20/17 Plan of Care End Date 11/29/17 Therapeutic Interventions Therapeutic Interventions Balance Training Canalithic Repositioning Coordination Training Gait Training Home Exercise Program Joint Mobilizations Manual Therapy Patient/Caregiver Education Soft Tissue Mobilization Therapeutic Exercises Vestibular Rehabilitation Modalities Traction- Mechanical Next Visit Focus/Plan Next Note Type Treatment Note Next Visit Plan Vestibular Adaptation/ Habituation, Static/Dynamic Balance training, CRM as needed. Addition of cervical STM and traction
--- NOTE | 2017-11-14 17:39 | PT.OTN ---
Current Diagnoses Benign paroxysmal vertigo, unspecified ear (11/14/17) Physical Therapy Treatment Note PT-OP-A Visit Information Start: 06/29/17 17:27 Freq: Status: Active Protocol: Document 11/14/17 15:15 DCW (Rec: 11/14/17 17:38 DCW [id number]) Out-Patient Physical Therapy Visit Information Visit Information Visit Type Treatment Note Visit Start Time 15:15 Visit Stop Time 16:00 Total Visit Minutes 45 Visit Number 14 Number of SCIENTIFIC ASSOCIATE Visits 0 Evaluation Information Evaluation Date 06/29/17 PT-OP-B Current Condition Start: 06/29/17 17:27 Freq: Status: Active Protocol: Document 09/20/17 12:00 DCW (Rec: 09/20/17 12:46 DCW [id number]) Current Condition History of Current Condition Onset Date six months Current Complaints Pt has ongoing complaints of motion-induced imbalance History of Current Condition Pt is a 81 year old male presenting with a six month history of motion-induced imbalance. 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 Pt reports episodes last minutes to hours. Symptoms are provoked by looking up, rolling in bed, or moving too quickly. Pt denies recent hearing changes, tinnitus, dysarthria, discoordination, or decreased mentation/ consciousness. Pt reports symptoms are waxing and waning in nature. Pt denies hx of diabetes, head trauma, seizure , migraines, CVA, anxiety/ panic disorders, depression, or excessive smoking or drinking. Pt does have a history of medicine-controlled HTN and Hyperlipidemia. 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 Treatment Goals Patient/Caregiver Goals I want to feel more balanced when I'm up moving around. Prior Functional Status Baseline Function- ADL's Modified Independent Baseline Function- Mobility Modified Independent Baseline Function- Gait Uses walking stick for stability Current Functional Impairments (Reported) Functional Limitations- Mobility/Gait Pt reports poor balance, requires an assistive device or a hand on a wall at all times. Pt has suffered multiple falls. PT-OP-C Subjective Start: 06/29/17 17:27 Freq: Status: Active Protocol: Document 11/14/17 15:15 DCW (Rec: 11/14/17 17:38 DCW [id number]) OP-PT Subjective Patient Comments Patient Comments I feel much better today, but I have an appointment with the chiropractor tomorrow to fix C2. PT-OP-D Balance Start: 06/29/17 17:27 Freq: Status: Active Protocol: Document 09/20/17 12:00 DCW (Rec: 09/20/17 12:46 DCW [id number]) Balance Tests CTSIB CTSIB Position 1 Mild Sway CTSIB Position 2 Moderate Sway CTSIB Position 3 Moderate Sway CTSIB Position 4 Moderate Sway CTSIB Position 5 Fall Reaction CTSIB Position 6 Fall Reaction PT-OP-E Functional Tests Start: 07/05/17 16:49 Freq: Status: Active Protocol: Document 09/20/17 12:00 DCW (Rec: 09/20/17 12:46 DCW [id number]) Functional Tests Dynamic Gait Index (DGI) Score 16 DGI Impairment Rating 20 to <40% Impaired (Score 15- 19) PT-OP-K Range of Motion Start: 09/20/17 12:46 Freq: Status: Active Protocol: Document 09/20/17 12:00 DCW (Rec: 09/20/17 13:02 DCW [id number]) Cervical Spine Range of Motion Cervical Spine Active Degrees Testing Position Sitting Flexion 56 Extension 30 Rotation Left 35 Rotation Right 45 PT-OP-O Vestibular Start: 06/29/17 17:27 Freq: Status: Active Protocol: Document 09/20/17 12:00 DCW (Rec: 09/20/17 12:46 DCW [id number]) Vestibular Assessment Screening Tests Vestibular Artery Screen Negative Visual Testing Heave Test Positive Right Thrust Head Positive Right Positional Testing [place]-Hallpike Negative Left Negative Right Rolling Test Negative Left Negative Right Supine to Sit Negative PT-OP-Q Treatments Start: 06/29/17 17:27 Freq: Status: Active Protocol: Document 11/14/17 15:15 DCW (Rec: 11/14/17 17:38 DCW [id number]) Gym Equipment Shuttle Balance 1 Details Red - Wide ARMANI (Eyes open, Following target), Staggered Stance Manual Therapy Treatment Soft Tissue Mobilization 2 Body Location Suboccipitals Mobilization Type Sustained Pressure Intensity/Depth Superficial Body Position Supine 1 Body Location Upper Trap Mobilization Type Strain/Counterstrain Sustained Pressure Trigger Point Release Intensity/Depth Moderate Body Position Supine Manual Traction Cervical Body Position Supine Manual Techniques Cervical MET Type Resisted cervical rotation for C2 placement Neuro Re-Education Treatment Balance Activities 9 Details Lateral weight-shifting 8 Details W ARMANI /c eyes closed 7 Details SLS PT-OP-T Assessment and Plan Start: 06/29/17 17:27 Freq: Status: Active Protocol: Document 11/14/17 15:15 DCW (Rec: 11/14/17 17:38 DCW [id number]) Physical Therapy Assessment Impairments Impairments Balance Coordination Vestibular Goals Four Impairment Limited cervical ROM Short Term Goal (STG) Cervical ROM to WNL STG Duration 10/08/17 Three Impairment CTSIB Buttonhole Maker Hand Goal (LTG) Pt to have at worst Moderate Sway in positions II- LTG Duration 10/21/17 - Improving Two Impairment DVA Buttonhole Maker Hand Goal (LTG) DVA to within three lines LTG Duration 10/21/17 One Impairment [place]-Hallpike Short Term Goal (STG) Negative [place]-Hallpike Bilaterally STG Duration Met Assessment Summary Assessment Pt displaying less imbalance while walking around clinic, reporting increased activity tolerance while walking to his PT appointments. Physical Therapy Plan Frequency and Duration Frequency of Treatment 1x/Week Duration of Treatment 10 weeks Plan of Care Start Date 09/20/17 Plan of Care End Date 11/29/17 Therapeutic Interventions Therapeutic Interventions Balance Training Canalithic Repositioning Coordination Training Gait Training Home Exercise Program Joint Mobilizations Manual Therapy Patient/Caregiver Education Soft Tissue Mobilization Therapeutic Exercises Vestibular Rehabilitation Modalities Traction- Mechanical Next Visit Focus/Plan Next Note Type Treatment Note Next Visit Plan Vestibular Adaptation/ Habituation, Static/Dynamic Balance training, CRM as needed. Addition of cervical STM and traction
--- NOTE | 2017-11-16 10:34 | PT.OTN ---
Current Diagnoses Benign paroxysmal vertigo, unspecified ear (11/16/17) Physical Therapy Treatment Note PT-OP-A Visit Information Start: 06/29/17 17:27 Freq: Status: Active Protocol: Document 11/16/17 09:45 DCW (Rec: 11/16/17 10:34 DCW [id number]) Out-Patient Physical Therapy Visit Information Visit Information Visit Type Treatment Note Visit Start Time 09:45 Visit Stop Time 10:30 Total Visit Minutes 45 Visit Number 15 Number of BANKING PIN ADJUSTER Visits 0 Evaluation Information Evaluation Date 06/29/17 PT-OP-B Current Condition Start: 06/29/17 17:27 Freq: Status: Active Protocol: Document 09/20/17 12:00 DCW (Rec: 09/20/17 12:46 DCW [id number]) Current Condition History of Current Condition Onset Date six months Current Complaints Pt has ongoing complaints of motion-induced imbalance History of Current Condition Pt is a 81 year old male presenting with a six month history of motion-induced imbalance. 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 Pt reports episodes last minutes to hours. Symptoms are provoked by looking up, rolling in bed, or moving too quickly. Pt denies recent hearing changes, tinnitus, dysarthria, discoordination, or decreased mentation/ consciousness. Pt reports symptoms are waxing and waning in nature. Pt denies hx of diabetes, head trauma, seizure , migraines, CVA, anxiety/ panic disorders, depression, or excessive smoking or drinking. Pt does have a history of medicine-controlled HTN and Hyperlipidemia. 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 Treatment Goals Patient/Caregiver Goals I want to feel more balanced when I'm up moving around. Prior Functional Status Baseline Function- ADL's Modified Independent Baseline Function- Mobility Modified Independent Baseline Function- Gait Uses walking stick for stability Current Functional Impairments (Reported) Functional Limitations- Mobility/Gait Pt reports poor balance, requires an assistive device or a hand on a wall at all times. Pt has suffered multiple falls. PT-OP-C Subjective Start: 06/29/17 17:27 Freq: Status: Active Protocol: Document 11/16/17 09:45 DCW (Rec: 11/16/17 10:34 DCW [id number]) OP-PT Subjective Patient Comments Patient Comments I feel a little tippy today. PT-OP-D Balance Start: 06/29/17 17:27 Freq: Status: Active Protocol: Document 09/20/17 12:00 DCW (Rec: 09/20/17 12:46 DCW [id number]) Balance Tests CTSIB CTSIB Position 1 Mild Sway CTSIB Position 2 Moderate Sway CTSIB Position 3 Moderate Sway CTSIB Position 4 Moderate Sway CTSIB Position 5 Fall Reaction CTSIB Position 6 Fall Reaction PT-OP-E Functional Tests Start: 07/05/17 16:49 Freq: Status: Active Protocol: Document 09/20/17 12:00 DCW (Rec: 09/20/17 12:46 DCW [id number]) Functional Tests Dynamic Gait Index (DGI) Score 16 DGI Impairment Rating 20 to <40% Impaired (Score 15- 19) PT-OP-K Range of Motion Start: 09/20/17 12:46 Freq: Status: Active Protocol: Document 09/20/17 12:00 DCW (Rec: 09/20/17 13:02 DCW [id number]) Cervical Spine Range of Motion Cervical Spine Active Degrees Testing Position Sitting Flexion 56 Extension 30 Rotation Left 35 Rotation Right 45 PT-OP-O Vestibular Start: 06/29/17 17:27 Freq: Status: Active Protocol: Document 09/20/17 12:00 DCW (Rec: 09/20/17 12:46 DCW [id number]) Vestibular Assessment Screening Tests Vestibular Artery Screen Negative Visual Testing Heave Test Positive Right Thrust Head Positive Right Positional Testing Mere-Hallpike Negative Left Negative Right Rolling Test Negative Left Negative Right Supine to Sit Negative PT-OP-Q Treatments Start: 06/29/17 17:27 Freq: Status: Active Protocol: Document 11/16/17 09:45 DCW (Rec: 11/16/17 10:34 DCW [id number]) Manual Therapy Treatment Soft Tissue Mobilization 2 Body Location Suboccipitals Mobilization Type Sustained Pressure Intensity/Depth Superficial Body Position Supine 1 Body Location Upper Trap Mobilization Type Strain/Counterstrain Sustained Pressure Trigger Point Release Intensity/Depth Moderate Body Position Supine Manual Traction Cervical Body Position Supine Neuro Re-Education Treatment Balance Activities 10 Details Tandem stance 2 Details Staggered Stance on foam (eyes open/closed) Other Activities 4 Details Resisted Backward Walk - Green T-band 3 Details Resisted Forward Walk - Green T-band 2 Details Resisted Side-Stepping /c Green T-band PT-OP-T Assessment and Plan Start: 06/29/17 17:27 Freq: Status: Active Protocol: Document 11/16/17 09:45 DCW (Rec: 11/16/17 10:34 DCW [id number]) Physical Therapy Assessment Impairments Impairments Balance Coordination Vestibular Goals Four Impairment Limited cervical ROM Short Term Goal (STG) Cervical ROM to WNL STG Duration 10/08/17 Three Impairment CTSIB Usp Goal (LTG) Pt to have at worst Moderate Sway in positions II- LTG Duration 10/21/17 - Improving Two Impairment DVA [place] Former Machine Operator Goal (LTG) DVA to within three lines LTG Duration 10/21/17 One Impairment [place]-Hallpike Short Term Goal (STG) Negative Mere-Hallpike Bilaterally STG Duration Met Assessment Summary Assessment Despite complaints of feeling tippy today, pt reported much subjective improvement with his daily balance. No new complaints with balance training. Physical Therapy Plan Frequency and Duration Frequency of Treatment 1x/Week Duration of Treatment 10 weeks Plan of Care Start Date 09/20/17 Plan of Care End Date 11/29/17 Therapeutic Interventions Therapeutic Interventions Balance Training Canalithic Repositioning Coordination Training Gait Training Home Exercise Program Joint Mobilizations Manual Therapy Patient/Caregiver Education Soft Tissue Mobilization Therapeutic Exercises Vestibular Rehabilitation Modalities Traction- Mechanical Next Visit Focus/Plan Next Note Type Treatment Note Next Visit Plan Vestibular Adaptation/ Habituation, Static/Dynamic Balance training, CRM as needed. Addition of cervical STM and traction
--- NOTE | 2017-11-20 14:28 | PT.OTN ---
Current Diagnoses Benign paroxysmal vertigo, unspecified ear (11/20/17) Physical Therapy Treatment Note PT-OP-A Visit Information Start: 06/29/17 17:27 Freq: Status: Active Protocol: Document 11/20/17 13:45 DCW (Rec: 11/20/17 14:27 DCW [id number]) Out-Patient Physical Therapy Visit Information Visit Information Visit Type Treatment Note Visit Start Time 13:45 Visit Stop Time 14:30 Total Visit Minutes 45 Visit Number 16 Number of SOMMELIER Visits 0 Evaluation Information Evaluation Date 06/29/17 PT-OP-B Current Condition Start: 06/29/17 17:27 Freq: Status: Active Protocol: Document 09/20/17 12:00 DCW (Rec: 09/20/17 12:46 DCW [id number]) Current Condition History of Current Condition Onset Date six months Current Complaints Pt has ongoing complaints of motion-induced imbalance History of Current Condition Pt is a 81 year old male presenting with a six month history of motion-induced imbalance. 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 Pt reports episodes last minutes to hours. Symptoms are provoked by looking up, rolling in bed, or moving too quickly. Pt denies recent hearing changes, tinnitus, dysarthria, discoordination, or decreased mentation/ consciousness. Pt reports symptoms are waxing and waning in nature. Pt denies hx of diabetes, head trauma, seizure , migraines, CVA, anxiety/ panic disorders, depression, or excessive smoking or drinking. Pt does have a history of medicine-controlled HTN and Hyperlipidemia. 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 Treatment Goals Patient/Caregiver Goals I want to feel more balanced when I'm up moving around. Prior Functional Status Baseline Function- ADL's Modified Independent Baseline Function- Mobility Modified Independent Baseline Function- Gait Uses walking stick for stability Current Functional Impairments (Reported) Functional Limitations- Mobility/Gait Pt reports poor balance, requires an assistive device or a hand on a wall at all times. Pt has suffered multiple falls. PT-OP-C Subjective Start: 06/29/17 17:27 Freq: Status: Active Protocol: Document 11/20/17 13:45 DCW (Rec: 11/20/17 14:27 DCW [id number]) OP-PT Subjective Patient Comments Patient Comments Pt reports he has been walking around his apartment more without assistance. PT-OP-D Balance Start: 06/29/17 17:27 Freq: Status: Active Protocol: Document 09/20/17 12:00 DCW (Rec: 09/20/17 12:46 DCW [id number]) Balance Tests CTSIB CTSIB Position 1 Mild Sway CTSIB Position 2 Moderate Sway CTSIB Position 3 Moderate Sway CTSIB Position 4 Moderate Sway CTSIB Position 5 Fall Reaction CTSIB Position 6 Fall Reaction PT-OP-E Functional Tests Start: 07/05/17 16:49 Freq: Status: Active Protocol: Document 09/20/17 12:00 DCW (Rec: 09/20/17 12:46 DCW [id number]) Functional Tests Dynamic Gait Index (DGI) Score 16 DGI Impairment Rating 20 to <40% Impaired (Score 15- 19) PT-OP-K Range of Motion Start: 09/20/17 12:46 Freq: Status: Active Protocol: Document 09/20/17 12:00 DCW (Rec: 09/20/17 13:02 DCW [id number]) Cervical Spine Range of Motion Cervical Spine Active Degrees Testing Position Sitting Flexion 56 Extension 30 Rotation Left 35 Rotation Right 45 PT-OP-O Vestibular Start: 06/29/17 17:27 Freq: Status: Active Protocol: Document 09/20/17 12:00 DCW (Rec: 09/20/17 12:46 DCW [id number]) Vestibular Assessment Screening Tests Vestibular Artery Screen Negative Visual Testing Heave Test Positive Right Thrust Head Positive Right Positional Testing [place]-Hallpike Negative Left Negative Right Rolling Test Negative Left Negative Right Supine to Sit Negative PT-OP-Q Treatments Start: 06/29/17 17:27 Freq: Status: Active Protocol: Document 11/20/17 13:45 DCW (Rec: 11/20/17 14:27 DCW [id number]) Gym Equipment Shuttle Balance 1 Details Red - Wide ARMANI (Eyes open, Following target), Staggered Stance Manual Therapy Treatment Soft Tissue Mobilization 2 Body Location Suboccipitals Mobilization Type Sustained Pressure Intensity/Depth Superficial Body Position Supine 1 Body Location Upper Trap Mobilization Type Strain/Counterstrain Sustained Pressure Trigger Point Release Intensity/Depth Moderate Body Position Supine Manual Traction Cervical Body Position Supine Neuro Re-Education Treatment Other Activities 4 Details Resisted Backward Walk - Green T-band 3 Details Resisted Forward Walk - Green T-band 2 Details Resisted Side-Stepping /c Green T-band PT-OP-T Assessment and Plan Start: 06/29/17 17:27 Freq: Status: Active Protocol: Document 11/20/17 13:45 DCW (Rec: 11/20/17 14:27 DCW [id number]) Physical Therapy Assessment Impairments Impairments Balance Coordination Vestibular Goals Four Impairment Limited cervical ROM Short Term Goal (STG) Cervical ROM to WNL STG Duration 10/08/17 Three Impairment CTSIB Custodial Goal (LTG) Pt to have at worst Moderate Sway in positions II- LTG Duration 10/21/17 - Improving Two Impairment DVA Custodial Goal (LTG) DVA to within three lines LTG Duration 10/21/17 One Impairment [place]-Hallpike Short Term Goal (STG) Negative Mere-Hallpike Bilaterally STG Duration Met Assessment Summary Assessment Pt has surgery on for removal of colon cancer, and will likely put therapy on hold for a week or so during recovery. Physical Therapy Plan Frequency and Duration Frequency of Treatment 1x/Week Duration of Treatment 10 weeks Plan of Care Start Date 09/20/17 Plan of Care End Date 11/29/17 Therapeutic Interventions Therapeutic Interventions Balance Training Canalithic Repositioning Coordination Training Gait Training Home Exercise Program Joint Mobilizations Manual Therapy Patient/Caregiver Education Soft Tissue Mobilization Therapeutic Exercises Vestibular Rehabilitation Modalities Traction- Mechanical Hold Physical Therapy Reason For Hold Colon cancer surgery Next Visit Focus/Plan Next Note Type Progress Note Next Visit Plan New G-codes
--- NOTE | 2017-12-11 12:17 | PT.OPDS ---
Current Diagnoses Benign paroxysmal vertigo, unspecified ear (11/20/17) Provider Visit Care Team Role Provider Type Aniyah Feliciano MD Attending Provider Physician Family Provider Primary Care Provider Specialty: Family Practice Address: [address] [place] [address], [facility] Email: [email or web address] Visit Number Visit Number 16 Discharge Summary PT-OP-B Current Condition Start: 06/29/17 17:27 Freq: Status: Active Protocol: Document 09/20/17 12:00 DCW (Rec: 09/20/17 12:46 DCW [id number]) Current Condition History of Current Condition Onset Date six months Current Complaints Pt has ongoing complaints of motion-induced imbalance History of Current Condition Pt is a 81 year old male presenting with a six month history of motion-induced imbalance. 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 Pt reports episodes last minutes to hours. Symptoms are provoked by looking up, rolling in bed, or moving too quickly. Pt denies recent hearing changes, tinnitus, dysarthria, discoordination, or decreased mentation/ consciousness. Pt reports symptoms are waxing and waning in nature. Pt denies hx of diabetes, head trauma, seizure , migraines, CVA, anxiety/ panic disorders, depression, or excessive smoking or drinking. Pt does have a history of medicine-controlled HTN and Hyperlipidemia. 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 Treatment Goals Patient/Caregiver Goals I want to feel more balanced when I'm up moving around. Prior Functional Status Baseline Function- ADL's Modified Independent Baseline Function- Mobility Modified Independent Baseline Function- Gait Uses walking stick for stability Current Functional Impairments (Reported) Functional Limitations- Mobility/Gait Pt reports poor balance, requires an assistive device or a hand on a wall at all times. Pt has suffered multiple falls. PT-OP-D Balance Start: 06/29/17 17:27 Freq: Status: Active Protocol: Document 09/20/17 12:00 DCW (Rec: 09/20/17 12:46 DCW [id number]) Balance Tests CTSIB CTSIB Position 1 Mild Sway CTSIB Position 2 Moderate Sway CTSIB Position 3 Moderate Sway CTSIB Position 4 Moderate Sway CTSIB Position 5 Fall Reaction CTSIB Position 6 Fall Reaction PT-OP-E Functional Tests Start: 07/05/17 16:49 Freq: Status: Active Protocol: Document 09/20/17 12:00 DCW (Rec: 09/20/17 12:46 DCW [id number]) Functional Tests Dynamic Gait Index (DGI) Score 16 DGI Impairment Rating 20 to <40% Impaired (Score 15- 19) PT-OP-K Range of Motion Start: 09/20/17 12:46 Freq: Status: Active Protocol: Document 09/20/17 12:00 DCW (Rec: 09/20/17 13:02 DCW [id number]) Cervical Spine Range of Motion Cervical Spine Active Degrees Testing Position Sitting Flexion 56 Extension 30 Rotation Left 35 Rotation Right 45 PT-OP-O Vestibular Start: 06/29/17 17:27 Freq: Status: Active Protocol: Document 09/20/17 12:00 DCW (Rec: 09/20/17 12:46 DCW [id number]) Vestibular Assessment Screening Tests Vestibular Artery Screen Negative Visual Testing Heave Test Positive Right Thrust Head Positive Right Positional Testing Independence-Hallpike Negative Left Negative Right Rolling Test Negative Left Negative Right Supine to Sit Negative PT-OP-T Assessment and Plan Start: 06/29/17 17:27 Freq: Status: Active Protocol: Document 12/11/17 12:14 DCW (Rec: 12/11/17 12:17 DCW [id number]) Physical Therapy Assessment Impairments Impairments Balance Coordination Vestibular Goals Four Impairment Limited cervical ROM Short Term Goal (STG) Cervical ROM to WNL STG Duration 10/08/17 Three Impairment CTSIB Skilled Nursing Goal (LTG) Pt to have at worst Moderate Sway in positions II- LTG Duration 10/21/17 - Improving Two Impairment DVA Skilled Nursing Goal (LTG) DVA to within three lines LTG Duration 10/21/17 One Impairment Mere-Hallpike Short Term Goal (STG) Negative Independence-Hallpike Bilaterally STG Duration Met Progress Towards Goals Progress Towards Goals Progressing Toward Goals Assessment Summary Assessment Following pt's surgery (lap colon resection) on 11/23/17 and in-patient status from 12/31-11/27/17, pt will be discharged from skilled therapy, and will return with a new referral at a later date . Physical Therapy Plan Frequency and Duration Frequency of Treatment 1x/Week Duration of Treatment 10 weeks Plan of Care Start Date 09/20/17 Plan of Care End Date 11/29/17 Therapeutic Interventions Therapeutic Interventions Balance Training Canalithic Repositioning Coordination Training Gait Training Home Exercise Program Joint Mobilizations Manual Therapy Patient/Caregiver Education Soft Tissue Mobilization Therapeutic Exercises Vestibular Rehabilitation Modalities Traction- Mechanical Discharge Physical Therapy Discharge Reasons Change in Medical Status Discharge Comments Lap colon resection Next Visit Focus/Plan Next Note Type Discharge Summary
== END 2018-01-12 09:59 ==
LOC: PHYS 13:45
PROVIDERS: Family Provider Family Medicine; PCP Family Medicine; Visit Provider Family Medicine
DX: H81.10 Benign paroxysmal vertigo, unspecified ear (principal)
CPT/HCPCS: 95992; 97110; 97112; 97140; 97162

== ENCOUNTER 2017-11-23 11:30 | Inpatient (IN) | payer MEDICARE, SELFPAY ==
[2017-11-20 09:03] VITALS: BMI 31.1
[2017-11-23] VITALS (14 sets, daily range): BP systolic 123–156; BP diastolic 59–94; PULSE 71–83; RESP 10–18; TEMP 35.5–36.7; O2SAT 93–98; BMI 31.1
--- NOTE | 2017-11-23 | PATH_ITS ---
[facility] Accession Number: [id number] . 01 Material submitted: . LEFT TRANSVERSE COLON AND SPLENIC FLEXURE . 02 Diagnosis: Left Transverse Colon and Splenic Flexure, Resection: Invasive mucinous adenocarcinoma; see cancer case summary. . . CANCER CASE SUMMARY Procedure: Transverse colectomy. Tumor site: Tranverse colon. Tumor size: Greatest dimension: 2.6 cm. Macroscopic tumor perforation: Not identified. Histologic type: Mucinous adenocarcinoma. Part C histologic grade: G3 - poorly differentiated. Tumor extension: Tumor invades muscularis propria. Margins: All margins are uninvolved by invasive carcinoma, high-grade dysplasia, intramucosal adenocarcinoma, and adenoma. Margins examined: Proximal, distal, mesenteric. Treatment effect: No known presurgical therapy. Lymphovascular invasion: Present - small vessel lymphovascular invasion. Perineural invasion: Not identified. Tumor budding: Number of tumor buds in one hot spot field: 0 - low score. Type of polyp in which invasive carcinoma arose: Tubular adenoma. Tumor deposits: Not identified. Regional lymph nodes: Number of lymph nodes involved: 0. Number of lymph nodes examined: 3; please see comment. Pathologic stage classification (pTMN, AJCC 8th Edition): Primary tumor: pT2 Regional lymph nodes: pN0 Additional pathologic findings: Focus of fat necrosis with calcifications, suggestive of torsed epiploica. Ancillary studies: Ancillary studies were previously performed on the biopsy specimen ([id number]); please see that report for additional details. In summary, the mucinous adenocarcinoma showed loss of nuclear protein expression of MLH1 and PMS2, with intact expression of MSH2 and MSH6. 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 MRV/11/30/2017 . 02 Comment: Sections are of colonic mucosa with expansion of the mucosa and submucosa by a proliferation of epithelioid cells within mucin pools, consistent with mucinous adenocarcinoma. On block A5 there is a focus suspicious for invasion beyond the muscularis propria into the pericolonic soft tissues; however, the tissue is poorly oriented. Additional deeper sections are examined on this block and show no evidence of invasion through the muscularis propria. Overall, this carcinoma is best staged as a pT2, with understanding that there is focal suspicion for deeper invasion. Only three lymph nodes are identified within the pericolonic adipose tissue. Fifteen blocks of pericolonic adipose tissue are submitted for histologic evaluation to identify additional small lymph nodes; however, no additional lymph nodes are seen. Within the lymph node search a nodule comprised of calcified fat necrosis is seen. There is no evidence of lymph node tissue or neoplasm. 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 . 02 Electronically signed: . Mario Schroeder MD, PhD, Pathologist NPI- [id number] . 01 Gross description: . Received in formalin, labeled left transverse colon + splenic flexure, is an unoriented open segment of colon (length-24.5 cm, resection margin #1 diameter-2.2 cm, resection margin #2 diameter-2.5 cm) with attached mesentery (up to 8.3 cm in depth and attached omentum (30.0 x 12.5 x 1.5 cm). The resection margins are received stapled. The mucosa is dodd-urena with normal folds. A focally pale area (length-3.5 cm) is identified 12.1 cm from resection margin #1 and 9.5 cm from resection margin #2. Within this area a dodd-pink, firm, well-circumscribed mass (2.6 x 2.3 x 0.8 cm) is identified. The mass is less than 0.1 cm from the serosa, 12.5 cm from resection margin #1, 9.8 cm from resection margin #2, and 8.5 cm from the radial resection margin. The mass is confined to the lumen and does not extend through the wall into the mesentery. Multiple dodd-pink firm polyps (0.1 cm-0.2 cm) are located within 0.8 cm from the mass. No other nodules, masses or lesions are identified. Ink code: black-resection margin; blue-serosa. Multiple possible lymph nodes (0.1 cm-0.9 cm) are identified. Section code: (A1) resection margin #1, perpendicular uniforms sales representative section; (A2) resection margin #2, perpendicular uniforms sales representative section; (A3) mass with serosa, uniforms sales representative serial section; (A4) radial resection margin, uniforms sales representative; (A5-A8) mass, serially sectioned, entirely submitted; (A9-A12) colon segment, uniforms sales representative serial sections submitted from resection margin #1 to #2; (A13) multiple intact lymph nodes; (A14) two bisected lymph nodes. The adipose tissue was processed overnight in [employer]ing Aid and an additional lymph node search was performed. No additional lymph nodes are grossly identified. Adipose tissue for the purpose of containing possible lymph nodes has been submitted in cassettes A15-A29. ([id number]) ([id number]) /MRV . 02 Pathologist provided ICD-10: C18.4 . 02 CPT . 482973 Specimen Comment: A duplicate report has been generated due to demographic updates. Performed at: 01 [facility] [address] [id number] MD Doug Johnson MD Phone: [phone] Performed at: 02 [facility] [address] [place] [id number] MD Steven Abbott MD Phone: [phone]
[2017-11-23] MEDS: LACTATED RINGERS 1,000 ML 100 ML IV ×2 (11:54→16:16)
--- NOTE | 2017-11-23 12:17 | PM.PREOP ---
Pre-operative Note Interval Note Pre-op Check: Yes History & Physical Reviewed by Physician and Yes Exam Performed Changes: No
[2017-11-23] MEDS: metroNIDAZOLE 500 MG/100 ML PIGGYBACK 100 MG IV ×2 (12:44→14:55)
[2017-11-23] MEDS: CEFOTETAN 2 GM/50 ML PIGGYBACK IV (14:26)
--- NOTE | 2017-11-23 15:02 | SUR.OPER ---
Lithotomy on padded OR bed. [place] Pad Positioner under torso. Head on pillow, right arm padded and tucked at side, left arm on padded arm board with safety strap. Legs secured in padded yellow fins stirrups.
--- NOTE | 2017-11-23 15:04 | PM.PROC.1 ---
Procedures Date/Time Date of procedure: 11/23/17 Time of procedure: 14:12 General Procedure description: Thoracic Epidural placement for post-operative pain management as requested by surgeon. R/B discussed, consent verified/signed. To OR. Pt seated. Standard ASA monitors. Midazolam 2mg. Sterile prep with iodine x 3, draped. T10-11 identified with surface landmarks. Lidocaine 1% local infiltrated for paramedian approach. 18g Hustead advanced until contact with lamina, then walked superiorly and medially until DARSHAN with saline at 7cm. Catheter inserted to 12cm at skin. Aspiration negative for CSF/blood. Test dose of 3mL 1.5% lidocaine with epi resulted in no significant change in HR or BP. No paresthesias. Pt tolerated well. VSS. Complications: none
[2017-11-23] MEDS: FENT 2MCG/BUPIV 0.125% EPI 2 MCG/100 ML PLAST..BAG 10 MCG EPIDURAL (18:38)
--- NOTE | 2017-11-23 18:47 | PM.OP.1 ---
Operative Date/Time/Diagnoses Date of procedure: 11/23/17 Time of procedure: 18:49 Pre-op diagnosis: Colon cancer Post-op diagnosis: same (Involving the transverse colon) Procedure & Clinicians Procedure: Laparoscopic-assisted transverse colon resection with colo colo anastomosis. Splenic flexure was resected and had to be mobilized. Same procedure as scheduled: Yes Indications: Colon cancer localized Surgeon: Sami Burgess Home Fire Alarm Installer: Eduar Bloom Click Yes if Unassisted: No Anesthesia Type: General Operative Notes Findings: Small tumor located in the left side of the transverse colon. Closure Type: primary Specimen(s): other (Portion of colon mid transverse to descending near junction of sigmoid) Implants & Drains: None Estimated Blood Loss (mL): 100 Procedure in detail: Patient was placed supine on the operating room table after an epidural catheter was placed for postop pain control. He underwent general endotracheal anesthesia. A Garner catheter was inserted and he was placed in low lithotomy. He was prepped and draped in the usual fashion. Small incisions made just below the umbilicus and carried down under direct vision in the peritoneal cavity. And a son cannula was inserted the abdomen was insufflated. Three additional 5 mm ports were placed 1 in the mid epigastrium 1 in the left abdomen at the level of the umbilicus and 1 inferior to the umbilicus. We identified the tattoo which was located actually in the transverse colon under heavy layer of omentum. The left colon was mobilized to include the splenic flexure. The omentum was divided near the area we proposed to resect and the gastrocolic omentum was entered and divided as well leaving much of it on the colon. Once all of the mobilization had taken place and this was a very tedious process I chose open the patient is I could not reliably find the blood supply to the colon laparoscopically. Incision was May connecting the upper and mm periumbilical port sites and carried in the peritoneal cavity. The colon had been well mobilized and any final mobilization necessary was undertaken. The colon was divided leaving the right blood sided transverse colon blood supply intact. The point of division in the descending colon was not far from the sigmoid. The mesentery was opened and divided including vessels to the base of the mesentery. The specimen was removed and opened and the lesion appeared to be small and adequately resected. An end-to-end anastomosis in 2 layers was then created with no spillage of contents. Inner layer of running 4 0 Polysorb in outer interrupted seromuscular silk sutures were used to create the anastomosis. It felt widely patent and there was no evidence of leak with passage of material under pressure across the anastomosis. I did not attempt to close the mesenteric defect due to its great size. The abdomen was irrigated and suctioned free of fluid. There was no ongoing bleeding. The midline was closed with a running 0 Maxon double arm suture with occasional interrupted 0 Polysorb sutures. The subcu was irrigated and closed loosely with interrupted 3 0 Polysorb and the skin was closed running 4 0 Polysorb subcuticular stitch in the midline. The remaining 2 port sites were closed with interrupted 4 0 subcuticular stitches. The wounds were cleaned and Mastisol Steri-Strips and a dressing applied to all. The patient was awakened and taken recovery room good condition. Complications: none Condition: stable Disposition: PACU Plan for aftercare: Will go to the ICU but be floor care due to the presence of an epidural.
--- NOTE | 2017-11-23 19:29 | SUR.PHASEI ---
Transferred with monitor to ICU. Becoming more wakeful over time with pain control maintained. On arrival in ICU was turned to ck epidural and had a bile emesis. Denied nausea. Did have small sips of water in PACU, but tolerated well.
--- NOTE | 2017-11-23 19:38 | SUR.PHASEI ---
Late note: Epidural infusion was started by Dr Dowd in PACU and he programmed initial rate of 10ml/hr.
[2017-11-23] MEDS: LACTATED RINGERS 1,000 ML 125 ML IV (19:48)
[2017-11-23] MEDS: MULTIVIT,CALC,MINS/IRON/FOLIC 1 TABLET 1 TAB PO (20:22)
[2017-11-23] MEDS: ATORVASTATIN 20 MG TABLET PO (20:23)
[2017-11-23] MEDS: CARVEDILOL 6.25 MG TABLET PO (20:23)
[2017-11-23] MEDS: GABAPENTIN 300 MG CAPSULE PO (20:23)
[2017-11-23] MEDS: POTASSIUM CHLORIDE 10 MEQ TAB PO (20:25)
[2017-11-24] VITALS (17 sets, daily range): BP systolic 114–150; BP diastolic 50–78; PULSE 63–79; RESP 12–18; TEMP 36.6–37; O2SAT 95–98
[2017-11-24] MEDS: KETOROLAC 15 MG/ML VIAL IV (03:52)
[2017-11-24] MEDS: LACTATED RINGERS 1,000 ML 125 ML IV ×3 (03:53→19:46)
[2017-11-24 05:19] LABS: Add Manual Diff / Slide Review NO; Hematocrit 36.7 % (41-53); Hemoglobin 12.7 g/dL (13.5-17.5); Mean Corpuscular HGB Conc 34.6 % (30-36); Mean Corpuscular Hemoglobin 32.1 PG (26-34); Monocytes Percent Auto 3.6 % (3-14); Neutrophils Absolute Auto 13100 /uL (3000-5900); Neutrophils Percent Auto 87.4 % (50-75); Platelet Count 232 X10^3/uL (150-400); Red Blood Cell Count 3.95 X10^6/uL (4.5-5.9); Red Cell Distribution Width 13.5 % (11.6-14.8)
[2017-11-24 05:24] LABS: Alanine Aminotransferase 34 IU/L (21-72); Albumin 3.6 g/dL (3.5-5.0); Albumin Globulin Ratio 1.4 (1.0-2.8); Alkaline Phosphatase 78 U/L (38-126); Aspartate Aminotransferase 25 IU/L (17-59); Bilirubin Total 0.6 mg/dL (0.2-1.3); Blood Urea Nitrogen 19 mg/dL (9-20); Calcium 7.9 mg/dL (8.4-10.2); Carbon Dioxide 24 mmol/L (22-32); Chloride 103 mmol/L (98-107); Estimated Glomerular Filt Rate > 60.0 mL/min (>60); Globulin 2.6 g/dL (1.7-4.1); Glucose 160 mg/dL (80-110); HEMOLYSIS < 15 (0-50); Potassium 3.6 mmol/L (3.4-5.1); Sodium 138 mmol/L (137-145); Total Protein 6.2 g/dL (6.3-8.2)
[2017-11-24] MEDS: FENT 2MCG/BUPIV 0.125% EPI 2 MCG/100 ML PLAST..BAG 5 MCG EPIDURAL (07:45)
[2017-11-24] MEDS: GABAPENTIN 300 MG CAPSULE PO (08:20)
[2017-11-24] MEDS: AMLODIPINE 2.5 MG TABLET PO (08:20)
[2017-11-24] MEDS: hydroCHLOROthiazide 25 MG TABLET PO (08:20)
[2017-11-24] MEDS: CARVEDILOL 6.25 MG TABLET PO ×2 (08:20→20:55)
[2017-11-24] MEDS: LOSARTAN 50 MG TABLET 100 MG PO (08:21)
[2017-11-24] MEDS: ENOXAPARIN 40 MG/0.4 ML SYRINGE SUBCUT (08:23)
--- NOTE | 2017-11-24 10:00 | PT.IIE ---
Current Diagnoses Malignant neoplasm of colon, unspecified (11/23/17) Surgery Performed Operation Date: 11/23/17 13:00 Actual Procedures p Laparoscopic assisted colon resection - Sami Burgess MD Surgical History (Last Updated 11/20/17 @ 13:34 by Ainsley Monterroso, SHILA) History of colonoscopy with polypectomy (Acute) History of prostate surgery (Acute) History of tonsillectomy (Acute) History of umbilical hernia repair (Acute) Implantable cardioverter-defibrillator (ICD) in situ (Resolved) Presence of cardiac pacemaker (Resolved) Medical History (Last Reviewed 11/23/17 @ 18:29 by Piedad Salmon, SHILA) BPH with urinary obstruction (Acute) Depression (Acute) Diarrhea (Acute) Edema (Acute) Hearing loss (Acute) History of echocardiogram (Acute ~06/2016) History of fracture as a child (Acute) History of left heart catheterization (Acute ~11/2015) History of syncope (Acute) Mitral regurgitation (Acute) 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 (Acute) Obese (Acute) Retention of urine (Acute) Sensory ataxia (Acute) Tear meniscus knee (Acute) V-tach (Acute) AICD (automatic cardioverter/defibrillator) present (Chronic ~07/05/13) Diabetes mellitus (Chronic) Hyperlipidemia (Chronic) Hypertension (Chronic) Pacemaker (Chronic) Peripheral neuropathy (Chronic) Vertigo (Chronic) Colon polyps (Resolved) Physical Therapy Inpatient Evaluation/Re-Eval M1 PT/OT-IP Prior Functional Status Start: 11/24/17 10:10 Freq: Status: Active Protocol: Document 11/24/17 10:00 [facility] (Rec: 11/24/17 10:21 [facility] [id number]) Medical Review Prior Functional Status Mobility and Gait modified indep. with walking stick; he walks to his OP PT appointments from [facility] Social History Household Members spouse Living Arrangements Assisted Living Number of Floors (Floors) One Floor Home Equipment Four Wheel Walker Additional Social History Comment walking stick mostly for gait; he and his live in the [place] building @ [facility]. M2 PT-IP Current Condition Start: 11/24/17 10:10 Freq: Status: Active Protocol: Document 11/24/17 10:00 [facility] (Rec: 11/24/17 10:21 [facility] [email or web address]) Physical Therapy Current Condition Current Condition Evaluation Date 11/24/17 Treatment Diagnosis laparoscopic L colon resection , impaired mobility Onset Date 11/23/17 (surgery) Precautions Abdominal Surgery Precautions Log Roll Lifting Restrictions Gait Belt above Incisional Area Other Precautions pt with epidural in place M3 PT-IP Subjective Start: 11/24/17 10:10 Freq: Status: Active Protocol: Document 11/24/17 10:00 [facility] (Rec: 11/24/17 10:21 [facility] [email or web address]) Subjective Physical Therapy Visit Type Type Initial Evaluation Visit Start Time 09:34 Visit Stop Time 10:00 Total Visit Minutes 26 Number of [employer] Visits 0 Physical Therapy Visit Comments Patient Comments pt denies any pain initially, rates @ 1/10 after mobility. Patient Goals just to get better Therapy Pain Assessment Pain Present Pain Present Pain Reported Location abdominal region Intensity 1 Scale Used Numeric (1 - 10) M4 PT-IP Mobility and Gait Start: 11/24/17 10:10 Freq: Status: Active Protocol: Document 11/24/17 10:00 [facility] (Rec: 11/24/17 10:21 [facility] [email or web address]) PT-Bed Mobility Assessment Rolling Level of Assist Minimal Assistance Supine to Sit Supine to Sit Minimal Assistance Sit to Supine Sit to Supine Minimal Assistance Scooting Scooting to Edge of Bed Standby Assistance Scooting Up and Down in Bed Dependent PT-Transfer Assessment Sit to and From Stand Sit to and from Stand Minimal Assistance 1 Person Assistance Use of Upper Extremities Equipment Transfer Assistive Device Gait Belt Front Wheeled Walker Transfers Transfer Destination Bed Transfer Technique Stand Step Pivot Transfer Ability Level of Assist Standby Assistance Gait Assessment Gait Gait Assistance Required: Standby Assistance Distance (Feet) 100 Assistive Devices Assistive Device Gait Belt Front Wheeled Walker Gait Deviations General Gait Pattern Decreased Stride Length Decreased Feet Clearance Flexed Trunk Factors Limiting Gait Function Factors Limiting Gait Function Decreased Activity Tolerance Pain Poor Balance PT-Balance Assessment Sitting Balance and Reactions Static Sitting Balance Ability Normal Dynamic Sitting Balance Ability Normal Standing Balance and Reactions Static Standing Balance Ability Good Dynamic Standing Balance Ability Fair Device Used FWW M5 PT-IP Objective Assessments Start: 11/24/17 10:10 Freq: Status: Active Protocol: Document 11/24/17 10:00 [facility] (Rec: 11/24/17 10:21 [facility] [email or web address]) Orientation Orientation/Cognition Level of Alertness Alert Strength Lower Extremity Strength Assessment Within Functional Limits M6 PT-IP Treatment Start: 11/24/17 10:10 Freq: Status: Active Protocol: Document 11/24/17 10:00 [facility] (Rec: 11/24/17 10:21 [facility] [id number]) Physical Therapy Treatment Education Education Provided Precautions Safety M7 PT-IP Assessment and Plan Start: 11/24/17 10:10 Freq: Status: Active Protocol: Document 11/24/17 10:00 [facility] (Rec: 11/24/17 10:21 [facility] [id number]) PT Summary Assessment and Plan Potential Rehabilitation Potential Good Status of Condition at Evaluation Evolving Summary Impairments Pain Balance Bed Mobility Transfers Gait Activity Tolerance Assessment Summary POD #1 laparoscopic colon resection. Pt tolerated mobility well overall, with increase in pain to 1/10 only. He does require cuing for log roll technique to protect his abdomen, and would benefit from continued skilled physical therapy during this episode of care to improve his overall mobility, gait, standing balance, activity tolerance to progress toward prior level of function. Expect pt to be able to return to [facility] when medically stable, possibly using his walker he has in his room @ [facility] for a short time before back to using his walking stick. Goals Bed Mobility Goal Standby Assistance Transfer Goal Standby Assistance Gait Goal Standby Assistance Gait Distance 300 Days to Meet Goals 3 Frequency of Treatment Frequency Of Treatment Once a Day Treatment Plan Physical Therapy Treatment Plan Bed Mobility Training Transfer Training Gait Training Therapeutic Exercise Balance Retraining Post Op Education Neuromuscular Re-ed Recommendations To Nursing Amount of Assist Needed 1 Person Assist Discharge Recommendations PT Discharge Recommendations Home with Assistance Other Discharge Recommendations OP PT possibly if MD feels is appropriate (was currently attending @ outpatient clinic)
--- NOTE | 2017-11-24 10:11 | P.PN_ITS ---
Subjective Date Patient Seen: 11/24/17 Interval history: Pt now POD1 for lap assisted partial colectomy, T10-[address] for post op pain management. Pt has received no narcotics since surgery and reported pain of 2/10 at highest since. TEP with 0.125% bupiv with fentanyl 2mcg/mL at 5mL / h. Exam Vital Signs (past 8 hours): - 11/24/17 04:31 11/24/17 04:46 11/24/17 05:00 Temperature 98.5 F 98.5 F Pulse Rate 72 70 Respiratory Rate 16 17 Blood Pressure 123/60 129/52 L Pulse Oximetry 97 96 96 11/24/17 08:08 11/24/17 08:20 11/24/17 08:52 Temperature 98.1 F Pulse Rate 69 76 Respiratory Rate 15 Blood Pressure 143/63 H 143/63 H Pulse Oximetry 97 98 Oxygen Delivery Method Room Air Oxygen Flow Rate 0 Narrative Exam Narrative: Pt awake, alert, conversant, in no distress. Tolerating PO, VSS. Epidural site and dressing c/d/i, with no erythema or TTP. Test of sensation/level of block with cold sensation reveals bilateral T11-12, though incision is T8-10, midline incision. Objective Labs Result Diagrams: 11/24/17 04:27 11/24/17 04:27 Labs: Laboratory Results - last 24 hr 11/24/17 11/24/17 04:27 04:27 WBC 15.0 H RBC 3.95 L Hgb 12.7 L Hct 36.7 L MCV 93.0 MCH 32.1 MCHC 34.6 RDW 13.5 Plt Count 232 Neut % (Auto) 87.4 H Lymph % (Auto) 9.0 L Sterling % (Auto) 3.6 Eos % (Auto) 0.0 L Baso % (Auto) 0.0 Neut # (Auto) 84746 H Sodium 138 D Potassium 3.6 Chloride 103 Carbon Dioxide 24 BUN 19 Creatinine 1.00 Estimated GFR > 60.0 BUN/Creatinine Ratio 19.0 Glucose 160 H Calcium 7.9 L Total Bilirubin 0.6 AST 25 ALT 34 Alkaline Phosphatase 78 Total Protein 6.2 L Albumin 3.6 Globulin 2.6 Albumin/Globulin Ratio 1.4 Assessment & Plan Post-op Postoperative Procedures Operation Date: 11/23/17 13:00 Actual Procedures Side Surgeon p Laparoscopic assisted colon resection Sami Burgess MD Postoperative status narrative: Pain well controlled with non-narcotics and possibly some contribution by the thoracic epidural, though level of coverage is below surgical incision. Postoperative plan narrative: Plan to continue current infusion overnight. Will discuss with surgery possibly capping the epidural tomorrow to test for efficacy and facilitate transfer to floor. Time Spent With Patient less than 15 minutes Quality VTE Deep Vein Thrombosis/Pulmonary Embolism Present on Admission: Yes
[2017-11-24] MEDS: MULTIVIT,CALC,MINS/IRON/FOLIC 1 TABLET 1 TAB PO (12:58)
--- NOTE | 2017-11-24 14:18 | CM.DPC ---
Referral faxed to [facility] per Sharri
--- NOTE | 2017-11-24 14:40 | CM.DANOTE ---
Addendum entered by Sharri Martinez LPN 11/24/17 14:46: Pt is an 82 year old male who admitted yesterday for a scheduled laparoscopic partial colectomy. Surgeon: Dr. Burgess PCP: Dr. Feliciano Payer[facility] Medicare [facility] status: confirmed INPT by [facility] SHILA Herring Pt is well covered for a rehab stay at [facility] is needed. 11/26 or > Original Note: Discharge Planning/Care Management DCP: assessment: case received, EMR reviewed and met with pt. Introduced self and role. Pt was found lying in bed, looking comfortable, very eager for conversation. Identifies his plan at this point as a short snf stay/[facility] for rehab and recovery before he returns to his Independent apt/[facility] and resumes care again for his . P: as above. DCP team will be following as POC unfolds. CM Discharge Assessment Start: 11/24/17 14:33 Freq: Status: Active Protocol: Document 11/24/17 14:34 ITV (Rec: 11/24/17 14:39 ITV [id number]) Discharge Planning Assessment History Provided By Patient Medical Record Prior Living Arrangements Assisted Living Comment Pt and his live in an independent apt at [facility] . 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 is currently staying with one of their daughters Household Members spouse Facility Name Admitted From: [facility] Willing to Return to Facility? Yes: likely [facility] first for rehab Independent with ADL's Yes Is patient alert and oriented? Yes Comment outpt PT at [facility] DME Already Rented / Owned FWW / Walker Cane Comment walking sticks, wheelchair Patient/Family Preference Jail Facility Referrals Initiated Jail Additional Comment snf choice list: discussed decision: [facility] (part of same campus as [facility]) Referral: Teresa/[facility]: accepts pt when stable for snf level care.11/26 or > If patient plan is SNF: Has PASSR been will do closer to d/c completed? Medicare Choice List Provided Yes SNF/HH Preference [facility] Has Agency SNF been contacted Yes Comment accepted Whiteboard Updated in Patient Room with Yes name and ext. # of Quality Assurance Practice Manager Review Status In Process Next Review Type Continued Stay Review Pre-Anesthesia Assessment Start: 11/20/17 09:03 Freq: Status: Complete Protocol: Document 11/20/17 09:03 LEWIS (Rec: 11/20/17 09:05 [facility] [id number]) Pre-Anesthesia Assessment Patient Information Reviewed Via Chart Review On-site Review Assessment Completed With Patient Primary Care Provider Aniyah Jesus Seen Machine Paint Mixer General surgeon Primary Language Kosovan Instructor Business Education Required No Height 182.88 cm Weight 104.326 kg Body Mass Index (BMI) 31.1 Hearing Ability Hard of Hearing Visual Impairment Partially Limited Visual Assist Glasses Dentition Type Teeth, Natural Present Teeth, Missing Barriers to Learning Visual Hx Anesthesia Reactions No Hx Family Anesthesia Reaction No Hx Malignant Hyperthermia No Hx Blood Transfusions No Anesthesia Review Requested No Wireless Store Manager No alcohol intake current alcohol intake frequency 0-2 drinks per day Smoking Status Former smoker Smoking cigarettes per day 80 Has it been 2 weeks or less since No patient quit smoking how long ago did patient quit smoking 1987 Substance Use Type former substance user Pain Present Denied Pain Musculoskeletal Symptoms Abnormal Gait Neck Pain Numbness Tingling History of Falling (Recent or History of Yes ) Patient is completely paralyzed or No completely immobile Ambulatory Aid Crutches/cane/walker Gait/Transferring Impaired Mental Status Oriented to own ability Comment Walking stick for balance Is patient on oxygen? No Does patient have ADLER/SOB No Hx Sleep Apnea No Suspected Sleep Apnea No Currently Taking a Beta Fiona Yes: Carvedilol Can You Climb a Flight of Stairs Without No: Doesn't do stairs R/T SOB imbalance/vertigo Hx SOB No Hx Syncope or Dizziness Yes: Vertigo not dizzy Anti-Coagulant Therapy No Has a Machine Paint Mixer Yes: [facility], Cardiac Testing Yes: Echo Hx Pacemaker/ICD Yes: Requested [place] [facility] initiate pacer form 11/20; [facility] ICD, biventricular Cardiac Clearance Received Not Applicable Diet Type At Home Regular Low Sodium dysphagia No Bladder Pattern Frequency Nocturia Retention Urgency Urinary Catheter Present No Hx Urinary Self Catheterization No Diabetes No Hx Drug Resistant Organism No Presence of External or Internal Medical Yes: AICD Devices Have you traveled outside the [facility] in the last 30 days? Marital Status Lives With spouse Prior Living Arrangements Assisted Living Number of Floors (Floors) Two Floors Number of Stairs To Enter/Railing? [facility], Uses the elevator, Stairs w/rails Support System Caregiver Child/Children Spouse Patient Discharge Plan Description Jail Facility/Rehab Comment Expects 2-3 day stay Feels Safe in Current Environment Yes Been Physically Hurt or Threatened By a No Person in Current Environment Do you have thoughts of harming yourself None or others? Are you currently considering suicide? No Do you have a plan to hurt yourself or No Plan others? Do You Have Any Spiritual Beliefs That No May Affect Your HC Choices? Do You Have Any Cultural Practices That No May Affect Your HC Choices? Spiritual Referral None Comment [facility] Who Can We Speak to About Patient's Care Family & Friends Identifying Code for Release of Patient Declined Information Health Care Proxy/Next of Kin Roxana Ohara - daughter; Anai ([place]); Brenda ([place] ) Emergency Contact Name Same Advance Directives? Yes Requested Patient Bring Advanced Yes Directives DOS Power of Change Management Expert Yes Power of Change Management Expert Name Roxana & Anai (see above) Power of Change Management Expert Phone Number same as above PAC Instructions Assistance for 24 hours post- op Do not shave/clip surgical site Durable medical equipment Medications to take/avoid Nasal antibiotic No ETOH/petroleum product on skin DOS NPO Ortho class Post-op transportation Pre-op antibiotic Pre-surgical wash Sensory aids Sturdy shoes/comfortable clothes Do not bring valuables and remove jewelry PAC Comment Gave patient written instructions for medications/ business card to give to [employer] at [facility]. Discharge Planning/Care Management CM Discharge Assessment Start: 11/24/17 14:33 Freq: Status: Active Protocol: Document 11/24/17 14:34 ITV (Rec: 11/24/17 14:39 ITV [id number]) Discharge Planning Assessment History Provided By Patient Medical Record Prior Living Arrangements Assisted Living Comment Pt and his live in an independent apt at [facility] . 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 is currently staying with one of their daughters Household Members spouse Facility Name Admitted From: [facility] Willing to Return to Facility? Yes: likely [facility] first for rehab Independent with ADL's Yes Is patient alert and oriented? Yes Comment outpt PT at [facility] D[facility] Already Rented / Owned FWW / Walker Cane Comment walking sticks, wheelchair Patient/Family Preference Jail Facility Referrals Initiated Jail Additional Comment snf choice list: discussed decision: [facility] ([facility] of [facility] campus as [facility]) Referral: [facility]: accepts pt when stable for snf level care.11/26 or > If patient plan is SNF: Has PASSR been will do closer to d/c completed? Medicare Choice List Provided Yes SNF/HH Preference [facility] Has Agency SNF been contacted Yes Comment accepted Whiteboard Updated in Patient Room with Yes name and ext. # of Quality Assurance Practice Manager Review Status In Process Next Review Type Continued Stay Review Pre-Anesthesia Assessment Start: 11/20/17 09:03 Freq: Status: Complete Protocol: Document 11/20/17 09:03 LEWIS (Rec: 11/20/17 09:05 [facility] [id number]) Pre-Anesthesia Assessment Patient Information Reviewed Via Chart Review On-site Review Assessment Completed With Patient Primary Care Provider Aniyah Jesus Seen Machine Paint Mixer General surgeon Primary Language Kosovan Instructor Business Education Required No Height 182.88 cm Weight 104.326 kg Body Mass Index (BMI) 31.1 Hearing Ability Hard of Hearing Visual Impairment Partially Limited Visual Assist Glasses Dentition Type Teeth, Natural Present Teeth, Missing Barriers to Learning Visual Hx Anesthesia Reactions No Hx Family Anesthesia Reaction No Hx Malignant Hyperthermia No Hx Blood Transfusions No Anesthesia Review Requested No Wireless Store Manager No alcohol intake current alcohol intake frequency 0-2 drinks per day Smoking Status Former smoker Smoking cigarettes per day 80 Has it been 2 weeks or less since No patient quit smoking how long ago did patient quit smoking 1988 Substance Use Type former substance user Pain Present Denied Pain Musculoskeletal Symptoms Abnormal Gait Neck Pain Numbness Tingling History of Falling (Recent or History of Yes ) Patient is completely paralyzed or No completely immobile Ambulatory Aid Crutches/cane/walker Gait/Transferring Impaired Mental Status Oriented to own ability Comment Walking stick for balance Is patient on oxygen? No Does patient have ADLER/SOB No Hx Sleep Apnea No Suspected Sleep Apnea No Currently Taking a Beta Fiona Yes: Carvedilol Can You Climb a Flight of Stairs Without No: Doesn't do stairs R/T SOB imbalance/vertigo Hx SOB No Hx Syncope or Dizziness Yes: Vertigo not dizzy Anti-Coagulant Therapy No Has a Machine Paint Mixer Yes: Paliwal - office note to chart, [facility]. Surg Risk, Cardiac Testing Yes: Echo Hx Pacemaker/ICD Yes: Requested [place] [facility] initiate pacer form 11/20; [facility] ICD, biventricular Cardiac Clearance Received Not Applicable Diet Type At Home Regular Low Sodium dysphagia No Bladder Pattern Frequency Nocturia Retention Urgency Urinary Catheter Present No Hx Urinary Self Catheterization No Diabetes No Hx Drug Resistant Organism No Presence of External or Internal Medical Yes: AICD Devices Have you traveled outside the [place] in the last 30 days? Marital Status Lives With spouse Prior Living Arrangements Assisted Living Number of Floors (Floors) Two Floors Number of Stairs To Enter/Railing? [facility], Uses the elevator, Stairs w/rails Support System Caregiver Child/Children Spouse Patient Discharge Plan Description Jail Facility/Rehab Comment Expects 2-3 day stay Feels Safe in Current Environment Yes Been Physically Hurt or Threatened By a No Person in Current Environment Do you have thoughts of harming yourself None or others? Are you currently considering suicide? No Do you have a plan to hurt yourself or No Plan others? Do You Have Any Spiritual Beliefs That No May Affect Your HC Choices? Do You Have Any Cultural Practices That No May Affect Your HC Choices? Spiritual Referral None Comment [facility] Who Can We Speak to About Patient's Care Family & Friends Identifying Code for Release of Patient Declined Information Health Care Proxy/Next of Kin Roxana Ohara - daughter; Anai ([place]); Brenda ([place] ) Emergency Contact Name Same Advance Directives? Yes Requested Patient Bring Advanced Yes Directives DOS Power of Change Management Expert Yes Power of Change Management Expert Name Roxana & Anai (see above) Power of Change Management Expert Phone Number same as above PAC Instructions Assistance for 24 hours post- op Do not shave/clip surgical site Durable medical equipment Medications to take/avoid Nasal antibiotic No ETOH/petroleum product on skin DOS NPO Ortho class Post-op transportation Pre-op antibiotic Pre-surgical wash Sensory aids Sturdy shoes/comfortable clothes Do not bring valuables and remove jewelry PAC Comment Gave patient written instructions for medications/ business card to give to [employer] at [facility].
--- NOTE | 2017-11-24 19:58 | PM.PNPO.1 ---
Subjective Date Patient Seen: 11/24/17 Time Patient Seen: 19:15 Interval history: Patient has had a good day. Pain is well controlled with the epidural. Has some rumbling in his stomach. Tolerated liquids and was advanced to full liquids. Exam Vital Signs (past 8 hours): - 11/24/17 12:20 11/24/17 14:00 11/24/17 16:59 Temperature 97.9 F 98.6 F Pulse Rate 63 65 Respiratory Rate 16 18 Blood Pressure 125/63 130/54 L Pulse Oximetry 97 96 97 Oxygen Delivery Method Room Air Oxygen Flow Rate 0 Narrative Exam Narrative: Lungs are clear. Heart regular rate and rhythm without murmur or gallop. Dressings are dry and intact. No abdominal distension. Objective Labs Result Diagrams: 11/24/17 04:27 11/24/17 04:27 Labs: Laboratory Results - last 24 hr 11/24/17 11/24/17 04:27 04:27 WBC 15.0 H RBC 3.95 L Hgb 12.7 L Hct 36.7 L MCV 93.0 MCH 32.1 MCHC 34.6 RDW 13.5 Plt Count 232 Neut % (Auto) 87.4 H Lymph % (Auto) 9.0 L Coffee % (Auto) 3.6 Eos % (Auto) 0.0 L Baso % (Auto) 0.0 Neut # (Auto) 40966 H Sodium 138 D Potassium 3.6 Chloride 103 Carbon Dioxide 24 BUN 19 Creatinine 1.00 Estimated GFR > 60.0 BUN/Creatinine Ratio 19.0 Glucose 160 H Calcium 7.9 L Total Bilirubin 0.6 AST 25 ALT 34 Alkaline Phosphatase 78 Total Protein 6.2 L Albumin 3.6 Globulin 2.6 Albumin/Globulin Ratio 1.4 Assessment & Plan Post-op Postoperative Procedures Operation Date: 11/23/17 13:00 Actual Procedures Side Surgeon p Laparoscopic assisted colon resection Sami Burgess MD Postoperative status narrative: Doing well. Labs noted. Hematocrit is low due to acute blood loss anemia from the surgery. Postoperative plan narrative: Await full return of bowel function. Will check labs again in the morning. Garner to remain as long as patient has epidural in. Will keep the epidural in his long as possible as it is providing excellent pain relief. Time Spent With Patient 25 - 35 minutes Quality VTE Deep Vein Thrombosis/Pulmonary Embolism Present on Admission: Yes
[2017-11-24] MEDS: ATORVASTATIN 20 MG TABLET PO (20:55)
[2017-11-25] VITALS (9 sets, daily range): BP systolic 122–160; BP diastolic 54–67; PULSE 60–66; RESP 16–18; TEMP 36.5–37.1; O2SAT 94–97
[2017-11-25] MEDS: FENT 2MCG/BUPIV 0.125% EPI 2 MCG/100 ML PLAST..BAG 5 MCG EPIDURAL (00:13)
[2017-11-25] MEDS: LACTATED RINGERS 1,000 ML 125 ML IV ×2 (03:56→12:26)
--- NOTE | 2017-11-25 06:12 | PC.NURSE ---
Patient has dozed intermittently overnight, denies pain, Bupivicaine/Fentanyl epidural infusing at 5ml/hr, patient turns on own in bed, very talkative. VSS, abdominal drsgs CDI, bowel sounds and flatus present, tolerating full liquid diet without N/V.
[2017-11-25] MEDS: hydroCHLOROthiazide 25 MG TABLET PO (08:49)
[2017-11-25] MEDS: POTASSIUM CHLORIDE 10 MEQ TAB PO (08:49)
[2017-11-25] MEDS: LOSARTAN 50 MG TABLET 100 MG PO (08:49)
[2017-11-25] MEDS: MULTIVIT,CALC,MINS/IRON/FOLIC 1 TABLET 1 TAB PO (08:49)
[2017-11-25] MEDS: CARVEDILOL 6.25 MG TABLET PO ×2 (08:50→21:40)
[2017-11-25] MEDS: AMLODIPINE 2.5 MG TABLET PO (08:50)
--- NOTE | 2017-11-25 10:51 | PC.NURSE ---
Pt's epidural leaking, partially out, therefore removed. Catheter tip present. Dressing applied. Pt reporting more pain in abdominal area after removal. Plan to give IV dilaudid if pain becomes severe. Pt reports he is comfortable at this time. Alert and oriented. Dressings to abdomen CDI. Three episodes of loose watery stool with brown flecks, first episode was incontinent of stool. Pt reports good appetite and enjoyed his oatmeal this am.
[2017-11-25 11:24] LABS: Add Manual Diff / Slide Review NO; Basophils Percent Auto 0.6 % (0-2); Eosinophils Percent Auto 0.2 % (2-4); Hematocrit 36.4 % (41-53); Hemoglobin 12.3 g/dL (13.5-17.5); Mean Corpuscular HGB Conc 33.7 % (30-36); Mean Corpuscular Hemoglobin 31.8 PG (26-34); Mean Corpuscular Volume 94.2 fL (80-100); Monocytes Percent Auto 8.3 % (3-14); Neutrophils Absolute Auto 10600 /uL (3000-5900); Neutrophils Percent Auto 75.9 % (50-75); Platelet Count 223 X10^3/uL (150-400); Red Blood Cell Count 3.86 X10^6/uL (4.5-5.9); Red Cell Distribution Width 13.3 % (11.6-14.8); White Blood Cell Count 13.9 X10^3/uL (4.5-11.0)
[2017-11-25 11:40] LABS: BUN Creatinine Ratio 14.4 (6-22); Blood Urea Nitrogen 13 mg/dL (9-20); Calcium 8.3 mg/dL (8.4-10.2); Carbon Dioxide 33 mmol/L (22-32); Chloride 104 mmol/L (98-107); Estimated Glomerular Filt Rate > 60.0 mL/min (>60); Glucose 159 mg/dL (80-110); HEMOLYSIS < 15 (0-50); Magnesium 2.5 mg/dL (1.6-2.3); Potassium 3.9 mmol/L (3.4-5.1); Sodium 144 mmol/L (137-145)
--- NOTE | 2017-11-25 12:15 | PT.IPTN ---
Current Diagnoses Malignant neoplasm of colon, unspecified (11/23/17) Surgery Performed Operation Date: 11/23/17 13:00 Actual Procedures p Laparoscopic assisted colon resection - Sami Burgess MD Physical Therapy Treatment Note M2 PT-IP Current Condition Start: 11/24/17 10:10 Freq: Status: Active Protocol: Document 11/25/17 12:15 RCC (Rec: 11/25/17 12:30 [facility] [id number]) Physical Therapy Current Condition Current Condition Evaluation Date 11/24/17 Treatment Diagnosis laparoscopic L colon resection , impaired mobility Onset Date 11/23/17 (surgery) Precautions Abdominal Surgery Precautions Log Roll Lifting Restrictions Gait Belt above Incisional Area Other Precautions pt with epidural in place M3 PT-IP Subjective Start: 11/24/17 10:10 Freq: Status: Active Protocol: Document 11/25/17 12:15 RCC (Rec: 11/25/17 12:30 [facility] [id number]) Subjective Physical Therapy Visit Type Type Treatment Note Visit Start Time 12:00 Visit Stop Time 12:15 Total Visit Minutes 15 Number of HOST COORDINATOR Visits 0 Physical Therapy Visit Comments Patient Comments pt states pain is 3/10, doing well overall. M4 PT-IP Mobility and Gait Start: 11/24/17 10:10 Freq: Status: Active Protocol: Document 11/25/17 12:15 RCC (Rec: 11/25/17 12:30 [facility] [id number]) PT-Bed Mobility Assessment Rolling Level of Assist Minimal Assistance Supine to Sit Supine to Sit Minimal Assistance Sit to Supine Sit to Supine Minimal Assistance Scooting Scooting to Edge of Bed Standby Assistance PT-Transfer Assessment Sit to and From Stand Sit to and from Stand Contact Guard Assistance 1 Person Assistance Use of Upper Extremities Transfers Transfer Destination Bed Transfer Technique Stand Step Pivot Transfer Ability Level of Assist Standby Assistance Gait Assessment Gait Gait Assistance Required: Standby Assistance Distance (Feet) 200 Assistive Devices Assistive Device Gait Belt Front Wheeled Walker Gait Deviations General Gait Pattern Decreased Stride Length Decreased Feet Clearance Flexed Trunk Factors Limiting Gait Function Factors Limiting Gait Function Decreased Activity Tolerance Pain Poor Balance M5 PT-IP Objective Assessments Start: 11/24/17 10:10 Freq: Status: Active Protocol: Document 11/24/17 10:00 RCC (Rec: 11/24/17 10:21 [facility] [id number]) Orientation Orientation/Cognition Level of Alertness Alert Strength Lower Extremity Strength Assessment Within Functional Limits M6 PT-IP Treatment Start: 11/24/17 10:10 Freq: Status: Active Protocol: Document 11/25/17 12:15 RCC (Rec: 11/25/17 12:30 [facility] [id number]) Physical Therapy Treatment Education Education Provided Precautions Safety Other Treatments Other Treatment Performed extended time spent discussing log roll M7 PT-IP Assessment and Plan Start: 11/24/17 10:10 Freq: Status: Active Protocol: Document 11/25/17 12:15 RCC (Rec: 11/25/17 12:30 [facility] [id number]) PT Summary Assessment and Plan Summary Assessment Summary POD #2. Pt with mild increase in pain due to epidural being d/c, but overall did well with gait tolerance. He requires some assistance to get OOB, but pt reports this is about where he was prior to this surgery. Pt still using a walker in this session, recommend he use his walker at home initially. Goals Bed Mobility Goal Standby Assistance Transfer Goal Standby Assistance Gait Goal Standby Assistance Gait Distance 300 Days to Meet Goals 3 Treatment Plan Other Recommendations and Next Treatment bed mobility/log roll, gait Focus Recommendations To Nursing Amount of Assist Needed 1 Person Assist Discharge Recommendations PT Discharge Recommendations Home with Assistance Other Discharge Recommendations OP PT possibly if MD feels is appropriate (was currently attending @ outpatient clinic)
--- NOTE | 2017-11-25 13:28 | PM.PNPO.1 ---
Subjective Date Patient Seen: 11/25/17 Time Patient Seen: 13:28 Interval history: Patient feels well. Catheter was removed from his back this morning. Pain is controlled. He has had 3 bowel movements and passed a lot of flatus. Exam Vital Signs (past 8 hours): - 11/25/17 05:38 11/25/17 10:16 11/25/17 12:21 Temperature Pulse Rate Respiratory Rate Blood Pressure Pulse Oximetry 95 96 96 11/25/17 12:22 Temperature 97.7 F Pulse Rate 60 Respiratory Rate 16 Blood Pressure 155/67 H Pulse Oximetry 96 Oxygen Delivery Method Room Air Oxygen Flow Rate 0 Narrative Exam Narrative: Co Operative in no apparent distress. Lungs are clear to auscultation without rales or rhonchi. Heart regular rate and rhythm without murmur gallop. Abdomen is soft no unusual tenderness dressings are dry. Objective Labs Result Diagrams: 11/25/17 11:10 11/25/17 11:10 Labs: Laboratory Results - last 24 hr 11/25/17 11/25/17 11:10 11:10 WBC 13.9 H RBC 3.86 L Hgb 12.3 L Hct 36.4 L MCV 94.2 MCH 31.8 MCHC 33.7 RDW 13.3 Plt Count 223 Neut % (Auto) 75.9 H Lymph % (Auto) 15.0 L Warren % (Auto) 8.3 Eos % (Auto) 0.2 L Baso % (Auto) 0.6 Neut # (Auto) 54005 H Sodium 144 Potassium 3.9 Chloride 104 Carbon Dioxide 33 H BUN 13 Creatinine 0.90 Estimated GFR > 60.0 BUN/Creatinine Ratio 14.4 Glucose 159 H Calcium 8.3 L Magnesium 2.5 H Assessment & Plan Post-op Postoperative Procedures Operation Date: 11/23/17 13:00 Actual Procedures Side Surgeon p Laparoscopic assisted colon resection Sami Burgess MD Postoperative day: 2 Postoperative status narrative: Doing remarkably well. Bowels are already functioning. Passing flatus. White blood cell count is coming down. He does have anemia most likely related to his operation and his tumor. Postoperative plan narrative: Advance diet. Check labs in a.m.. Possible discharge in a day or 2. Continue DVT prophylaxis Quality VTE Deep Vein Thrombosis/Pulmonary Embolism Present on Admission: Yes
[2017-11-25] MEDS: ENOXAPARIN 40 MG/0.4 ML SYRINGE SUBCUT (14:45)
--- NOTE | 2017-11-25 15:01 | CM.DPC ---
DCP Cont: Spoke to patient in ICU. Alert, oriented, and pleasant. Lives upstairs in [facility], and lives downstairs in [facility], [place]. has some dementia. Has supportive daughter that lives in this area. Discussed discharge plan with patient, and reiterated that he still wishes to go to [facility]. Patient stated that he has been there before. P: DCP to continue to assess. Plan is for patient to go to [facility] upon discharge. Jeanine Stacy RN/[facility] [employer]
--- NOTE | 2017-11-25 16:30 | PC.NURSE ---
Pt transferred to acute care unit. Report given to Keke FUCHS. Pt transported via wheelchair. In no acute distress. All belongings transferred with patient.
--- NOTE | 2017-11-25 16:34 | OT.IP.EVAL ---
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 (Acute) Obese (Acute) Retention of urine (Acute) Sensory ataxia (Acute) Tear meniscus knee (Acute) V-tach (Acute) AICD (automatic cardioverter/defibrillator) present (Chronic ~07/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) Diabetes mellitus (Chronic) Hyperlipidemia (Chronic) Hypertension (Chronic) Pacemaker (Chronic) Peripheral neuropathy (Chronic) Vertigo (Chronic) Colon polyps (Resolved) Surgical History (Last Updated 11/20/17 @ 13:34 by Ainsley Monterroso RN) History of colonoscopy with polypectomy (Acute) History of prostate surgery (Acute) History of tonsillectomy (Acute) History of umbilical hernia repair (Acute) Implantable cardioverter-defibrillator (ICD) in situ (Resolved) Presence of cardiac pacemaker (Resolved) Occupational Therapy Inpatient Evaluation/Re-Eval M1 PT/OT-IP Prior Functional Status Start: 11/24/17 10:10 Freq: Status: Active Protocol: Document 11/25/17 12:15 [facility] (Rec: 11/25/17 12:30 [facility] [id number]) Medical Review Prior Functional Status Mobility and Gait modified indep. with walking stick; he walks to his OP PT appointments from [facility] Social History Household Members spouse Living Arrangements Assisted Living M1 PT/OT-IP Prior Functional Status Start: 11/25/17 16:17 Freq: NEEDED Status: Active Protocol: Document 11/25/17 16:18 [facility] (Rec: 11/25/17 16:34 [facility] [id number]) Medical Review Prior Functional Status Medical History Reviewed Yes Mobility and Gait modified indep. with walking stick; he walks to his OP PT appointments from [facility] Activities of Daily Living and IADL's Pt states prior independent with all ADL's, meals provided at [facility]. Social History Household Members spouse Living Arrangements Assisted Living Home Environment Walk in Shower Additional Social History Comment Folding seat in the shower. M2 OT-IP Current Condition Start: 11/25/17 16:17 Freq: Status: Active Protocol: Document 11/25/17 16:18 [facility] (Rec: 11/25/17 16:34 [facility] [id number]) Occupational Therapy Current Condition Current Condition Evaluation Date 11/25/17 Treatment Diagnosis Laproscopic Left colon resection Diagnosis Onset Date 11/23/17 Post Operative Precautions Abdominal Surgery Precautions Log Roll Lifting Restrictions Gait Belt above Incisional Area M3 OT- IP Subjective and Pain Start: 11/25/17 16:17 Freq: Status: Active Protocol: Document 11/25/17 16:18 [facility] (Rec: 11/25/17 16:34 [facility] [id number]) OT- Subjective Occupational Therapy Visit Type Type Initial Evaluation Visit Start Time 15:40 Visit Stop Time 16:10 Total Visit Minutes 30 Occupational Therapy Visit Comments Patient/Caregiver Goals Pt states whenever the doctor feels that I need to go I will do it whether it be back to [facility] versus [facility]. OT Pain Assessment Pain When Pain Assessed During Mobility Pain Present Pain Present Pain Reported Location Abdomen Intensity 5 Scale Used Numeric (1 - 10) Description Aching Pain Behaviors Holding Area Management Techniques Modification of Treatment Timing of Activity with Medications M4 OT- IP ADL's Start: 11/25/17 16:17 Freq: Status: Active Protocol: Document 11/25/17 16:18 [facility] (Rec: 11/25/17 16:34 [facility] [id number]) OT ADL-Grooming Comments OT Grooming Comments Pt not states already did so earlier. OT ADL-Dressing General Eval Lower Body Dressing Ability Maximum Assistance Areas Needing Assistance Socks Comments OT Dressing Comments Due to pain and precautions, pt will need MAX A for all LB dressing needs and would benefit from use of track hoe operator and shoe horn. OT ADL-Toileting Comments OT Toileting Comments Pt has been using urinal in the bed. M6 OT- IP Functional Cognition Start: 11/25/17 16:17 Freq: Status: Active Protocol: Document 11/25/17 16:18 [facility] (Rec: 11/25/17 16:34 [facility] [id number]) Cognitive Factors Limiting Selfcare Function Cognitive Ability Level of Alertness Alert Patient Orientation Name Month Date Year Day of Week Place Situation Attention Span Ability Capable of Focused Attention Capable of Sustained Attention Ability to Follow Commands Able to Follow One Step Commands Memory Description Short Term Impaired Safety Awareness Underestimates Need for Assistance Executive Function Ability Unable to Filter Distractions Cognitive Comments Cognitive Assessment Comments Pt needing safety cues to remind him to use FWW at all times and not let go, back up with FWW all the way before sitting down to wc, and reminder that he is attached to his IV and call for assist when he wants to get back to bed. Pt easily distracted. OT- Vision and Hearing OT- Hearing Assessment OT- Hearing Assessment WFL M7 OT- IP Mobility and Balance Start: 11/25/17 16:17 Freq: Status: Active Protocol: Document 11/25/17 16:18 [facility] (Rec: 11/25/17 16:34 [facility] [id number]) OT- Bed Mobility Assessment Rolling Type of Rolling Roll to Left Level of Assistance Standby Assistance Bedrails Supine to Sit Supine to Sit Assist Contact Guard Assistance OT-Transfer Assessment Sit to and From Stand Sit to and from Stand Contact Guard Assistance Transfers Transfer Ability Standby Assistance Contact Guard Assistance Technique Transfer Destination Chair Transfer Technique Stand Step Pivot Devices Transfer Assistive Devices Gait Belt Front Wheeled Walker Comments Mobility Comments Pt does not step through with left foot and lead with right foot with FWW. OT- Balance Assessment Sitting Balance and Reactions Static Sitting Balance Ability Normal Dynamic Sitting Balance Ability Normal Standing Balance and Reactions Static Standing Balance Ability Good Dynamic Standing Balance Ability Fair M8 OT- IP Objective Assessments Start: 11/25/17 16:17 Freq: Status: Active Protocol: Document 11/25/17 16:18 [facility] (Rec: 11/25/17 16:34 [facility] [id number]) OT Gross Range of Motion Upper Extremity Range of Motion Assessment Within Functional Limits OT Strength Comments Strength Comments NT due to recent surgery. OT-Muscle Tone Assessment Muscle Tone WNL Yes M9 OT- IP Assessment and Plan Start: 11/25/17 16:17 Freq: Status: Active Protocol: Document 11/25/17 16:18 [facility] (Rec: 11/25/17 16:34 [facility] [id number]) OT Summary Assessment and Plan Potential Rehabilitation Potential Good Analytic Complexity at Evaluation Low Summary OT Impairments Pain Balance Functional Cognition Functional Mobility Dressing Bathing Progress Towards Goals Slow Progress due to Medical Issues Slow Progress due to Cognition Assessment Summary Pt low complexity and main barrier is activity tolerance, needing assist for ADl's, dynamic balance and now using FWW versus just used walking stick, and decreased safety awareness. Pt would benefit from short skilled rehab prior to going home. Goals Grooming Goal Independent Dressing Goal Independent Toileting Goal Independent Bathing Goal Standby Assistance Toilet Transfer Goal Independent Shower Transfer Goal Contact Guard Assistance Patient/Caregiver Education Goal Demonstrate Post-Op Precautions Days to Meet Goals 5 Frequency of Treatment Frequency Of Treatment Once a Day Treatment Plan OT Treatment Plan ADL Training Functional Cognition Training Functional Mobility Patient/Family Education Discharge Planning Other Treatment Recommendations and Next ADl's with AEd. Treatment Focus Discharge Recommendations OT Discharge Recommendations SNF Rehab Other Discharge Recommendations Home to [facility] and increased assistance.
[2017-11-25] MEDS: GABAPENTIN 300 MG CAPSULE PO (21:40)
[2017-11-25] MEDS: ATORVASTATIN 20 MG TABLET PO (21:40)
[2017-11-25] MEDS: TAMSULOSIN 0.4 MG CAPSULE PO (23:48)
[2017-11-26] VITALS (13 sets, daily range): BP systolic 131–177; BP diastolic 75–98; PULSE 65–102; RESP 18–22; TEMP 36.3–36.9; O2SAT 94–99
--- NOTE | 2017-11-26 01:15 | PC.NURSE ---
0020 Now dose of FLomax 0.4 mg. admin. @ 2348, tried to re-insert Beltran @ that brayden, but he was having loose x3 & also dribbling some urine. Skin care & gricelda care done x3 & finally was able to insert beltran @ 0020. Noted some small blood clots in the tubing & hematuria, beltran put out almost 1000 cc of pink tinged urine. Pt. reported some relief from bladder discomfort & penile pain after beltran was placed. Will monitor.
[2017-11-26] MEDS: GABAPENTIN 300 MG CAPSULE PO ×2 (08:16→20:55)
[2017-11-26] MEDS: CARVEDILOL 6.25 MG TABLET PO ×2 (08:16→20:55)
[2017-11-26] MEDS: POTASSIUM CHLORIDE 10 MEQ TAB PO (08:16)
[2017-11-26] MEDS: MULTIVIT,CALC,MINS/IRON/FOLIC 1 TABLET 1 TAB PO (08:16)
[2017-11-26] MEDS: LOSARTAN 50 MG TABLET 100 MG PO (08:16)
[2017-11-26] MEDS: hydroCHLOROthiazide 25 MG TABLET PO (08:16)
[2017-11-26] MEDS: ENOXAPARIN 40 MG/0.4 ML SYRINGE SUBCUT (08:17)
[2017-11-26] MEDS: AMLODIPINE 2.5 MG TABLET PO (08:17)
[2017-11-26] MEDS: TAMSULOSIN 0.4 MG CAPSULE PO (13:00)
--- NOTE | 2017-11-26 13:35 | PM.PNPO.1 ---
Subjective Date Patient Seen: 11/26/17 Time Patient Seen: 13:04 Interval history: Patient feeling okay. Pain is well controlled. Having a lot of diarrhea now. Exam Vital Signs (past 8 hours): - 11/26/17 07:55 11/26/17 08:10 11/26/17 13:27 Temperature 97.3 F L Pulse Rate 73 Respiratory Rate 18 Blood Pressure 175/80 H Pulse Oximetry 97 97 97 Oxygen Delivery Method Room Air Oxygen Flow Rate 0 Narrative Exam Narrative: Lungs are clear. Heart regular rate and rhythm without murmur gallop. Wound is intact. No cellulitis. Everything looks fine. Objective Labs Result Diagrams: 11/25/17 11:10 11/25/17 11:10 Assessment & Plan Post-op Postoperative Procedures Operation Date: 11/23/17 13:00 Actual Procedures Side Surgeon p Laparoscopic assisted colon resection Sami Burgess MD Postoperative status narrative: White blood cell count is stable slightly elevated. Has been afebrile. Did not tolerate having his Garner removed. Was started on tamsulosin and we may be able to get it out tomorrow. He is not sure if he should go to a sniff for back to the assisted care facility. He is being seen by OT and PT and will ask discharge planning to evaluate. Postoperative plan narrative: Overall doing well. Could potentially be discharged tomorrow depending on planning. We will check his stool for C diff. Stop his IV fluids. Encourage mobility. Quality VTE Deep Vein Thrombosis/Pulmonary Embolism Present on Admission: Yes
[2017-11-26 15:06] LABS: Clostridium Difficile Tox PCR Negative for C. diff
--- NOTE | 2017-11-26 15:30 | PT.IPTN ---
Current Diagnoses Malignant neoplasm of colon, unspecified (11/23/17) Surgery Performed Operation Date: 11/23/17 13:00 Actual Procedures p Laparoscopic assisted colon resection - Sami Burgess MD Physical Therapy Treatment Note M2 PT-IP Current Condition Start: 11/24/17 10:10 Freq: Status: Active Protocol: Document 11/26/17 15:30 [facility] (Rec: 11/26/17 17:56 [facility] [id number]) Physical Therapy Current Condition Current Condition Evaluation Date 11/24/17 Treatment Diagnosis laparoscopic L colon resection , impaired mobility Onset Date 11/23/17 (surgery) Precautions Abdominal Surgery Precautions Log Roll Lifting Restrictions Gait Belt above Incisional Area M3 PT-IP Subjective Start: 11/24/17 10:10 Freq: Status: Active Protocol: Document 11/26/17 15:30 [facility] (Rec: 11/26/17 17:56 [facility] [id number]) Subjective Physical Therapy Visit Type Type Treatment Note Visit Start Time 15:20 Visit Stop Time 15:30 Total Visit Minutes 10 Physical Therapy Visit Comments Patient Comments pt states he is unsure if he can go home or needs SNF. M4 PT-IP Mobility and Gait Start: 11/24/17 10:10 Freq: Status: Active Protocol: Document 11/26/17 15:30 [facility] (Rec: 11/26/17 17:56 [facility] [id number]) PT-Bed Mobility Assessment Supine to Sit Supine to Sit Standby Assistance Head of Bed Elevated Sit to Supine Sit to Supine Minimal Assistance Head of Bed Elevated PT-Transfer Assessment Sit to and From Stand Sit to and from Stand Standby Assistance Use of Upper Extremities Transfers Transfer Destination Bed Transfer Technique Stand Step Pivot Transfer Ability Level of Assist Standby Assistance Gait Assessment Gait Gait Assistance Required: Standby Assistance Distance (Feet) 225 Assistive Devices Assistive Device Gait Belt Front Wheeled Walker Gait Deviations General Gait Pattern Decreased Stride Length Decreased Feet Clearance Factors Limiting Gait Function Factors Limiting Gait Function Decreased Activity Tolerance Pain Poor Balance Comments Gait Comments improved upright posture. M5 PT-IP Objective Assessments Start: 11/24/17 10:10 Freq: Status: Active Protocol: Document 11/24/17 10:00 [facility] (Rec: 11/24/17 10:21 [facility] [id number]) Orientation Orientation/Cognition Level of Alertness Alert Strength Lower Extremity Strength Assessment Within Functional Limits M6 PT-IP Treatment Start: 11/24/17 10:10 Freq: Status: Active Protocol: Document 11/25/17 12:15 [facility] (Rec: 11/25/17 12:30 [facility] [id number]) Physical Therapy Treatment Education Education Provided Precautions Safety Other Treatments Other Treatment Performed extended time spent discussing log roll M7 PT-IP Assessment and Plan Start: 11/24/17 10:10 Freq: Status: Active Protocol: Document 11/26/17 15:30 [facility] (Rec: 11/26/17 17:56 [facility] [id number]) PT Summary Assessment and Plan Summary Assessment Summary POD #3. Pt with improved standing posture, more upright this date. He tolerated increased gait distance and demonstrated improved speed of gait overall. He may be able to tolerate walking stick with gait if first tested by physical therapy. Goals Bed Mobility Goal Standby Assistance Transfer Goal Standby Assistance Gait Goal Standby Assistance Gait Distance 300 Days to Meet Goals 3 Frequency of Treatment Frequency Of Treatment Once a Day Treatment Plan Other Recommendations and Next Treatment gait with walking stick, cont. Focus log roll education Recommendations To Nursing Amount of Assist Needed 1 Person Assist Discharge Recommendations PT Discharge Recommendations Home with Assistance Other Discharge Recommendations OP PT possibly if MD feels is appropriate (was currently attending @ outpatient clinic)
[2017-11-26] MEDS: ATORVASTATIN 20 MG TABLET PO (20:54)
[2017-11-26] MEDS: SODIUM CHLORIDE 0.9% FLUSH 10 ML IV (21:02)
[2017-11-27 01:00] VITALS: O2SAT 96
[2017-11-27 06:37] VITALS: BP 150/87; PULSE 87; RESP 20; TEMP 36.7; O2SAT 96
[2017-11-27 07:50] VITALS: BP 145/67; PULSE 75; RESP 16; TEMP 37.2; O2SAT 96
[2017-11-27] MEDS: AMLODIPINE 2.5 MG TABLET PO (10:27)
[2017-11-27] MEDS: GABAPENTIN 300 MG CAPSULE PO (10:27)
[2017-11-27] MEDS: CARVEDILOL 6.25 MG TABLET PO (10:27)
[2017-11-27] MEDS: MULTIVIT,CALC,MINS/IRON/FOLIC 1 TABLET 1 TAB PO (10:27)
[2017-11-27] MEDS: ENOXAPARIN 40 MG/0.4 ML SYRINGE SUBCUT (10:27)
[2017-11-27] MEDS: POTASSIUM CHLORIDE 10 MEQ TAB PO (10:27)
[2017-11-27] MEDS: hydroCHLOROthiazide 25 MG TABLET PO (10:27)
[2017-11-27] MEDS: LOSARTAN 50 MG TABLET 100 MG PO (10:27)
[2017-11-27] MEDS: SODIUM CHLORIDE 0.9% FLUSH 10 ML IV (10:28)
[2017-11-27] MEDS: TAMSULOSIN 0.4 MG CAPSULE PO (10:28)
[2017-11-27 11:05] VITALS: O2SAT 96
[2017-11-27 11:45] VITALS: BP 157/88; PULSE 82; RESP 16; TEMP 36.6; O2SAT 94
--- NOTE | 2017-11-27 11:54 | PM.DS.1 ---
History of Present Illness Date Patient Seen: 11/27/17 Time Patient Seen: 11:54 Chief complaint: [id number] LAPAROSCOPIC LEFT COLON RESECTION Narrative: 82-year-old male who presented for colorectal screening since it had been sometime from his prior examination. Colonoscopy was performed which showed malignant neoplasm in the transverse colon. He was electively admitted following bowel preparation for colon resection. Discharge Providers Date of admission: 11/23/17 11:30 Primary care physician: Aniyah Feliciano MD Consults: 11/23/17 19:35 Consult to Discharge Planning Routine Comment: 11/23/17 21:01 Consult to Physical Therapy Evaluate & Treat Comment: Physician Instructions: Evaluate and Treat 11/25/17 10:52 Consult to Occupational Therapy Evaluate & Treat Comment: Physician Instructions: Evaluate and treat 11/26/17 13:21 Consult to Discharge Planning Routine Comment: ?SNF v.s. return to assisted living. Please evalu Discharge provider: Eduar Bloom MD Discharge Date: 11/27/17 Summary Discharge Diagnosis: Malignant neoplasm of the transverse colon Benign prostatic hypertrophy Urinary retention requiring Garner catheter Placement of epidural pain catheter for postoperative analgesia per anesthesiology service Laparoscopic-assisted transverse colectomy with mobilization and resection of splenic flexure Colocolonic anastomosis at time of colon resection AICD (automatic cardioverter/defibrillator) present (Chronic) Diabetes mellitus (Chronic) Hyperlipidemia (Chronic) Hypertension (Chronic) Pacemaker (Chronic) Peripheral neuropathy (Chronic) Vertigo (Chronic) Colon polyps (Resolved) Implantable cardioverter-defibrillator (ICD) in situ (Resolved) Presence of cardiac pacemaker (Resolved) Hospital Course: Patient was admitted and taken electively to the operating room for the above surgical procedure. He tolerated this well without difficulty or complications. Postoperatively he was initially admitted to the intensive care unit for monitoring given his history of pacemaker as well as management of epidural pain catheter. Catheter was eventually removed and he was transferred to the regular surgical floor where he remained afebrile and hemodynamically stable. He had return of bowel function without issue. Diet was slowly advanced to regular which he is tolerating at the time of discharge. Pain is well controlled, and in fact he is only using Tylenol and gabapentin at this point. He is ambulating without significant difficulty after consultation with physical therapy and occupational therapy. Unfortunately, he experienced acute urinary retention following removal of the Garner catheter which necessitated it is re-insertion. At the time of discharge the Garner catheter remains in place draining clear yellow urine to gravity bag. He is maintained on Flomax, and the catheter will be removed later this week. Because of his ongoing need for Garner catheter management, physical therapy, occupational therapy, and Lovenox injections following colon resection he is released to group home facility. From there we planned return to his assisted living facility where he was residing before surgery. Other home medications will stay as prescribed. He is tolerating these well at the time of discharge. He will follow up as above. However, he has been instructed to call or return sooner if he has any fevers, chills, nausea, vomiting, inability to tolerate a diet, wound drainage, or progressive abdominal pain. All questions were answered to his satisfaction, and he voiced understanding. Status at Discharge Cognitive/behavioral status at discharge: Alert, oriented x3 Functional status at discharge: uses cane/walker Overall status at discharge: patient is progressing back to baseline Time Spent with Patient Less than 30 minutes Exam Vital Signs (past 8 hours): - 11/27/17 06:37 11/27/17 07:50 11/27/17 11:05 Temperature 98.1 F 98.9 F Pulse Rate 87 75 Respiratory Rate 20 16 Blood Pressure 150/87 H 145/67 H Pulse Oximetry 96 96 96 Oxygen Delivery Method Room Air Oxygen Flow Rate 0 Narrative Exam Narrative: Well-nourished well-developed elderly male lying comfortably in bed in no acute distress. Alert oriented x3. He is in good spirits. Sclera nonicteric Chest clear to auscultation bilaterally without crackles or wheezes Abdomen is soft and nondistended. He is minimally tender to palpation near the midline incision but otherwise relatively nontender throughout. No guarding or rebound. No masses. No cellulitis or erythema. Garner catheter is in place draining clear yellow urine Extremities show no clubbing, cyanosis, or edema Objective Labs Result Diagrams: 11/25/17 11:10 11/25/17 11:10 Labs: Laboratory Results - last 24 hr 11/26/17 14:00 C. difficile Tox (PCR) Negative for c. diff Discharge Plan Discharge Plan Patient Disposition: SNF Transfer to: [facility] Under care of provider: sami burgess Transportation: Wheelchair Diagnostic studies (x-ray, etc.): None Labs: None Consult as needed: Dental, Hearing, Mental health, Podiatry and Vision Discharge comment: Patient has Garner catheter due to urinary retention following colectomy complicated by benign prostatic hypertrophy. Plan catheter removal in the surgery office December 01, 2017. I certify the postop hospital group home care is medically necessary on a continuing basis for any conditions for which he/ she received care during this hospitalization.: Yes The receiving facility has agreed to accept transfer and provide medical treatment.: Yes Discharge Med Rec/Prescriptions Prescriptions: New acetaminophen 325 mg Tablet 650 mg PO Q6HR PRN (Reason: Pain, Mild (1-3)) Qty: 60 RF: 0 tamsulosin [Flomax] 0.4 mg Capsule 0.4 mg PO DAILY Qty: 30 RF: 0 gabapentin [Neurontin] 300 mg Capsule 300 mg PO BID Qty: 30 RF: 0 enoxaparin [Lovenox] 40 mg/0.4 mL Syringe 40 mg subcut DAILY 7 Days RF: 0 oxycodone 5 mg tablet, oral only 5 mg PO Q4-6H PRN (Reason: pain) Qty: 14 RF: 0 Continue [cinnamon] 1,200 mg PO QDAY Qty: 0 RF: 0 atorvastatin [Lipitor] 20 mg tablet 20 mg PO HS Qty: 90 RF: 2 icfmkhbc-wdpg-BH-calcium-mins [Thera M Plus (ferrous fumarat)] 9 mg iron-400 mcg tablet 1 tab PO QDAY Qty: 90 RF: 0 potassium chloride 10 mEq capsule, extended release 10 meq PO QDAY Qty: 90 RF: 0 erythromycin 500 mg tablet See Label Instructions PO .COMPLEX Qty: 6 RF: 0 losartan-hydrochlorothiazide 100-25 mg Tablet 1 tab PO DAILY RF: 0 amlodipine 2.5 mg Tablet 2.5 mg PO DAILY RF: 0 carvedilol 6.25 mg Tablet 6.25 mg PO BID RF: 0 Disabled Parking Permit 1 ea miscellaneous DIRECTED RF: 0 Follow up/Referrals: Sami Burgess MD [Physician] - 12/01/17 12:00 am (Call office for exact appointment time if not already done) Aniyah Feliciano MD [Primary Care Provider] - Discharge Health Status Multidrug resistant organism: No MDRO MDRO Verified by culture: No Provider Discharge Instructions Diet: Diet as Tolerated Liquid consistency: Normal/Thin Food texture: Regular Diet comment: Regular diet as tolerated Activity: May walk as much as desired May climb stairs No driving until further notice No lifting more than 20 lb until further notice May ride in vehicle May shower Do not soak incision in bathtub or pool until further notice Cold/Heat Therapy: May apply ice pack to incisions as needed for comfort Catheter: 2-way Garner Catheter comment: May placed Garner catheter to leg bag. Empty catheter as needed. Other treatments: Lovenox as prescribed Skin/Wound/Dressing Care Report to your healthcare provider any signs of infection, such as:: chills, fever, increased pain and unusual drainage Dressing: No dressings necessary May removed current dressings to shower [facility] Reason for rehabilitation: Post-operative therapy Rehab type: Physical therapy and Occupational therapy Discharge Data Primary Care Provider: Aniyah Feliciano Attending Provider: Sami Burgess Admmaria luisa Date/Time: 11/23/17 11:30
--- NOTE | 2017-11-27 12:37 | CM.DPC ---
DCP: continued: Dr. Bloom was here, has ok'd pt for d/c. Is updated re the d/c dispo to [facility] (and confirmed this plan again with pt today). Orders are now received, finalized and faxed to Teresa[facility] w/c sergey will pick pt up at 1400. Report will be called to Teresa on her cell phone...info to SHILA Hoskins
--- NOTE | 2017-11-27 14:58 | PC.NURSE ---
Discharge: Pt dressed in gown with belongings in lap, in wheelchair accompanied by [facility] transport. IV d/c, beltran still in place, report called to Teresa at [facility].
== END 2017-11-27 15:02 | DRG 330 ==
LOC: AC 11:50 → ICU 14:03 → AC 11-25 16:44
PROVIDERS: Admitting Provider Specialist; Family Provider Family Medicine; PCP Family Medicine; Visit Provider Specialist
PROC: 0DTE0ZZ Resection of Large Intestine, Open Approach (ICD-10-PCS; principal; 2017-11-23 13:00)
DX: C18.4 Malignant neoplasm of transverse colon (principal); I44.2 Atrioventricular block, complete; I42.8 Other cardiomyopathies; D62 Acute posthemorrhagic anemia; Z87.891 Personal history of nicotine dependence; Z95.810 Presence of automatic (implantable) cardiac defibrillator; E78.5 Hyperlipidemia, unspecified; I10 Essential (primary) hypertension; E11.40 Type 2 diabetes mellitus with diabetic neuropathy, unspecified; D63.8 Anemia in other chronic diseases classified elsewhere; N40.1 Benign prostatic hyperplasia with lower urinary tract symptoms; R33.9 Retention of urine, unspecified; H81.10 Benign paroxysmal vertigo, unspecified ear
CPT/HCPCS: 36415; 44204; 44213; 80048; 80053; 83735; 85025; 87493; 88309; 97112; 97116; 97140; 97162; 97165; J1100; J1650; J1885; J2250; J2405; J2704; J3010

== ENCOUNTER → 2017-12-26 08:29 | Oncology outpatient (ONC) | payer MEDICARE, SELFPAY ==
[2017-11-29 11:41] VITALS: BMI 31.1
[2017-12-26 09:12] VITALS: BP 147/72; PULSE 73; RESP 17; TEMP 36.7; O2SAT 97
--- NOTE | 2017-12-26 09:37 | P.CONONC_ITS ---
History of Present Illness - Data of Consult Consult date: 12/26/17 Requesting Physician: Dr. Burgess Primary Care Provider: Aniyah Feliciano MD - Consult Narrative Narrative: Diagnosis: Colon cancer, T2 N0 Previous treatment: Surgical resection in November 2017 History of present illness: Mac Manley is a 82 year old male who is referred for further evaluation of newly diagnosed colon cancer. The patient reports that he had been in his usual state of health although he had been having some diarrhea. He had a colonoscopy performed. He was found to have a mass in the transverse colon. CT scans of the chest abdomen pelvis did not show any evidence of distant metastasis. There is no obvious adenopathy identified. He underwent surgical resection on November 23. 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 It penetrated the muscularis propria. Surgical margins were clear. Only 3 lymph nodes were identified within the sample. None of them however contained any metastatic disease. Postoperatively, he has been healing well. His appetite has been good. He denies any nausea or vomiting. His bowels are moving normally and his previous diarrhea has improved. He has had some longstanding trouble with his balance which has been unchanged. He has had a couple of falls. He denies any shortness of breath or cough. He is not having any pain. He is otherwise without complaint today. His past medical history is significant for coronary artery disease. He has had a prior pacemaker placed as well as an AICD. He has a history of hypertension and hyperlipidemia. He has had some COPD. He has had a prior kidney stone. He also has had diet-controlled borderline diabetes. Family history: His daughters had breast cancer. There is no other family history of malignancy. Social history: He is . He quit smoking in 1983. Prior to that, he smoked about a pack a day. 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 CC: Jayant Dugan MD Patient reports pain?: No Home Medications and Allergies Home Medications Medication Instructions Recorded Confirmed Type atorvastatin 20 mg tablet 20 mg PO HS #90 tab 08/11/17 12/20/17 Rx erythromycin 500 mg tablet See Label Instructions PO .COMPLEX 11/15/17 12/20/17 Rx #6 tab-cap multivitamin-iron 9 mg-folic acid 1 tab PO QDAY #90 tab 11/16/17 12/20/17 Rx 400 mcg-calcium and minerals tablet potassium chloride ER 10 mEq 10 meq PO QDAY #90 tab 11/16/17 12/20/17 Rx capsule,extended release amlodipine 2.5 mg PO DAILY 11/20/17 12/20/17 History carvedilol 6.25 mg PO BID 11/20/17 12/20/17 History losartan-hydrochlorothiazide 1 tab PO DAILY 11/20/17 12/20/17 History Disabled Parking Permit 1 ea MISCELLANEOUS DIRECTED 11/24/17 12/20/17 History acetaminophen 650 mg PO Q6HR PRN #60 tab 11/27/17 12/20/17 Rx gabapentin [Neurontin] 300 mg PO BID #30 cap 11/27/17 12/20/17 Rx oxycodone 5 mg PO Q4-6H PRN #14 each 11/27/17 12/20/17 Rx tamsulosin [Flomax] 0.4 mg PO DAILY #30 cap 11/27/17 12/20/17 Rx cinnamon bark 500 mg capsule 500 mg PO BID #60 cap 12/14/17 12/20/17 Rx Allergies Allergy/AdvReac Type Severity Reaction Status Date / Time No Known Drug Allergies Allergy Unverified 12/12/17 11:47 Medical History - Medical, Surgical, Family History Medical History: Medical History (Last Reviewed 12/12/17 @ 16:05 by Aniyah Feliciano MD) Colon cancer (Acute) BPH with urinary obstruction Depression Diarrhea Edema Hearing loss History of echocardiogram Onset Date: ~06/2016 History of fracture as a child History of left heart catheterization Onset Date: ~11/2015 History of syncope Mitral regurgitation 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 Obese Retention of urine Sensory ataxia Tear meniscus knee V-tach AICD (automatic cardioverter/defibrillator) present Onset Date: ~07/05/13 Diabetes mellitus Hyperlipidemia Hypertension Pacemaker Peripheral neuropathy Vertigo Colon polyps Surgical History: Surgical History (Last Reviewed 12/12/17 @ 16:05 by Anyiah Feliciano MD) History of colonoscopy with polypectomy History of prostate surgery History of tonsillectomy History of umbilical hernia repair S/P partial colectomy Implantable cardioverter-defibrillator (ICD) in situ Presence of cardiac pacemaker Family History: Family History (Last Reviewed 12/12/17 @ 16:05 by Aniyah Feliciano MD) Father [place] (myocardial infarction) - Social History Smoking Status: Former smoker Review of Systems - Patient Self-Reported Symptoms SR Constitution: Weight loss/gain SR eye issues: Vision changes SR ears, nose, mouth, throat issues: Ears ringing, Swollen glands SR Cardiovascular issues: Dizzy/lightheaded SR Gastrointestinal issues: Change in bowel pattern SR Genitourinary issues: Frequent urination SR Musculoskeletal issues: Difficulty walking SR Neuro issues: Lightheaded/dizzy, Numbness or tingling, Difficulty balancing Constitutional: normal exercise tolerance, no weight loss Ears, nose, mouth, throat: lightheadedness Gastrointestinal: diarrhea Exam - Constitutional positive no acute distress, positive average body habitus - Routine HEENT Exam Head: Present: normocephalic, atraumatic Eye: Present: EOMI, PERRL. Absent: conjunctival icterus, scleral injection ENT: Present: mucous membranes moist, oropharynx clear, dentition normal - Routine Neck Exam Present: supple. Absent: lymphadenopathy, thyromegaly - Routine Respiratory Exam Present: Clear to auscultation bilaterally. Absent: rales, wheezes - Routine Cardiovascular Exam Present: RRR, S1, S2. Absent: murmur Comments: His heart sounds were distant. - Routine Abdominal Exam Present: soft, normoactive bowel sounds. Absent: tenderness, distended, organomegaly, mass Comments: Surgical incision is well healed. - Routine Extremities Exam Absent: cyanosis, clubbing, edema - Routine Back/Spine Exam Back/Spine: Absent: paraspinal tenderness, vertebral tenderness - Routine Skin Exam Present: intact. Absent: petechiae, rash - Routine Neurological Exam Present: alert, oriented X3, abnormal gait - Routine Psychiatric Exam Present: normal affect, normal thought process Results - Imaging Additional studies: Procedures Excision of lesion or tissue of conjunctiva (12/02/09) Excision of other minor lesion of eyelid (12/02/09) Incision of lacrimal punctum (12/02/09) Probing of nasolacrimal duct (12/02/09) Repair of entropion or ectropion with lid reconstruction (12/02/09) Resection of Transverse Colon, Open Approach (11/23/17) Assessment and Plan (1) Colon cancer Problem details: 82-year-old man newly diagnosed colon cancer involving the transverse colon. His T2 N0 although the number of lymph nodes was small. Because his cancer stage I, no adjuvant chemotherapy is indicated. He should be monitored with a follow-up colonoscopy. He tells me that this is already scheduled. NCCN guidelines do not recommend routine imaging or CEA evaluation for stage I disease. Overall, the prognosis from his colon cancer is very good. In patients who have stage II disease, sampling low number of lymph nodes is a risk factor that might influence the decision about whether or not to give chemotherapy in stage II disease. That is not necessary the case in stage I. I do not think that any further follow-up is needed here. I would be happy to see him again in the future should the need arise. Instead, he should follow up with his surgeon her manager fleet for routine follow-up colonoscopies. Current visit: No Status: Acute
== END ==
PROVIDERS: Family Provider Family Medicine; PCP Family Medicine
DX: C18.4 Malignant neoplasm of transverse colon (principal)
CPT/HCPCS: 99204; 99214

== ENCOUNTER → 2018-03-07 08:07 | Outpatient (REF) | payer MEDICARE, SELFPAY ==
[2017-11-29 11:41] VITALS: BMI 31.1
[2018-03-07 09:04] LABS: Free T3, Triiodothyronine Free 3.39 pg/mL (2.77-5.27)
[2018-03-07 09:18] LABS: Thyroid Stimulating Hormone 2.45 uIU/mL (0.47-4.68)
[2018-03-07 18:19] LABS: T4 Total Thyroxine 6.83 ug/dL (5.5-11.0)
== END ==
LOC: LAB 08:07
PROVIDERS: PCP Family Medicine; Visit Provider Hospitalist
DX: E03.9 Hypothyroidism, unspecified (principal)
CPT/HCPCS: 36415; 84436; 84443; 84481

== ENCOUNTER 2018-04-06 12:00 | Outpatient (RCR) | payer MEDICARE, SELFPAY ==
[2017-11-29 11:41] VITALS: BMI 31.1
--- NOTE | 2017-12-14 15:49 | PT.OIE ---
Current Diagnoses Other cervical disc degeneration, unspecified cervical region (12/14/17) Cervicalgia (12/14/17) Other abnormalities of gait and mobility (12/14/17) Past Medical History (Last Reviewed 12/12/17 @ 16:05 by Aniyah Feliciano MD) Colon cancer (Acute) BPH with urinary obstruction (Acute) Depression (Acute) Diarrhea (Acute) Edema (Acute) Hearing loss (Acute) History of echocardiogram (Acute ~06/2016) History of fracture as a child (Acute) History of left heart catheterization (Acute ~11/2015) History of syncope (Acute) Mitral regurgitation (Acute) 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 (Acute) Obese (Acute) Retention of urine (Acute) Sensory ataxia (Acute) Tear meniscus knee (Acute) V-tach (Acute) AICD (automatic cardioverter/defibrillator) present (Chronic ~07/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) Diabetes mellitus (Chronic) Hyperlipidemia (Chronic) Hypertension (Chronic) Pacemaker (Chronic) Peripheral neuropathy (Chronic) Vertigo (Chronic) Colon polyps (Resolved) Past Surgical History (Last Reviewed 12/12/17 @ 16:05 by Aniyah Feliciano MD) History of colonoscopy with polypectomy (Acute) History of prostate surgery (Acute) History of tonsillectomy (Acute) History of umbilical hernia repair (Acute) S/P partial colectomy (Acute) Implantable cardioverter-defibrillator (ICD) in situ (Resolved) Presence of cardiac pacemaker (Resolved) Provider Visit Care Team Role Provider Type Aniyah Feliciano MD Attending Provider Physician Family Provider Primary Care Provider Specialty: [facility] Address: [address] [place] [address], [facility] Email: [email or web address] Physical Therapy Initial Evaluation PT-OP-A Visit Information Start: 12/14/17 15:21 Freq: Status: Active Protocol: Document 12/14/17 14:03 LORIEW (Rec: 12/14/17 15:47 LORIEW [id number]) Out-Patient Physical Therapy Visit Information Visit Information Visit Type Initial Evaluation Visit Start Time 14:03 Visit Stop Time 14:54 Total Visit Minutes 51 Visit Number 1 Number of PATTERN PERFORATING MACHINE OPERATOR Visits 0 Evaluation Information Evaluation Date 12/14/17 PT-OP-B Current Condition Start: 12/14/17 15:21 Freq: Status: Active Protocol: Document 12/14/17 14:03 DCW (Rec: 12/14/17 15:47 [facility] [id number]) Current Condition History of Current Condition Onset Date 8 months Current Complaints Pt has ongoing complaints of motion-induced imbalance History of Current Condition Pt is an 82 year-old male presenting with an eight month history of motion-induced imbalance. Pt was being treated at this clinic up until 11/30/17, after which he underwent a laparoscopic colon resection secondary to colon cancer. Pt was admitted to inpatient for four days following surgery, and then returned to [facility], where he has been living with his , who is suffering from dementia. Pt reports that his balance had be improving with his recent therapy, which had focused on both balance training and therapy for cervical hypertonia. Pt believes his balance issues are mainly caused by his cervical spine, and noticed a large improvement upon starting therapy for his cervical problems. Treatment Goals Patient/Caregiver Goals Pt's goal is to improve his balance Prior Functional Status Baseline Function- ADL's Modified Independent Baseline Function- Mobility Modified Independent Baseline Function- Gait Uses walking stick for stability Current Functional Impairments (Reported) Functional Limitations- Mobility/Gait Pt reports poor balance, requires an assistive device or a hand on a wall at all times. Pt has suffered multiple falls, the most recent being December last year (2016). PT-OP-C Subjective Start: 12/14/17 15:21 Freq: Status: Active Protocol: Document 12/14/17 14:03 DC (Rec: 12/14/17 15:47 [facility] [id number]) OP-PT Subjective Patient Comments Patient Comments I really do feel like I'm improving, but I'm certainly not ready to quit therapy yet. Patient Reported Progress Improving PT-OP-D Balance Start: 12/14/17 15:21 Freq: Status: Active Protocol: Document 12/14/17 14:03 DC (Rec: 12/14/17 15:47 [facility] [id number]) Balance Tests Little Balance Test Little Balance Test Score 40/56 Little Impairment Rating 20 to 39% Impaired (Score 34- 44) Little Balance Assessment Evaluation Sitting to Standing Ability Independent w/out Hands Unsupported Stance Safely- 2 minutes Sitting Unsupported, Feet on Floor Safely- 2 minutes Standing to Sitting Ability Safely, Minimal Hand Use Transfer Ability Safely, Minimal Hand Use Unsupported Stance- Eyes Closed Supervision, 10 seconds Unsupported Stance- Eyes Open Supervision to maintain Reaching Forward Standing Safely, 5 inches Pick- Up Object From Floor Within 2 inches, Unable Look Behind Shoulder - Standing Shifts Weight Unilateral Turning 360 Degrees Turns slowly, but safely Unsupported Stance, Alternating Feet on 4 Steps w/Supervision Stair Unsupported Tandem Stance Assist to Step-15 seconds Unilateral Leg Stance Lifts Leg/Unable to Hold Total Score Ilttle Total Score (out of 56 points) 40 Little Impairment Rating 20 to 39% Impaired (Score 34- 44) PT-OP-F Manual Assessment Start: 12/14/17 15:48 Freq: Status: Active Protocol: Document 12/14/17 14:03 DCW (Rec: 12/14/17 15:49 DCW [id number]) Manual Assessments Soft Tissue Assessment Soft Tissue Mobility Assessment Muscle Tone: Upper trap: R mild, L WNL Suboccibitals: R mild, L moderate Scalenes: R WNL, L moderate Paraspinals: R mild, L moderate PT-OP-K Range of Motion Start: 12/14/17 15:21 Freq: Status: Active Protocol: Document 12/14/17 14:03 DCW (Rec: 12/14/17 15:47 DCW [id number]) Cervical Spine Range of Motion Cervical Spine Active Degrees Testing Position Sitting Flexion 45 Extension 40 Rotation Left 38 Rotation Right 45 Lateral Flexion Left 25 Lateral Flexion Right 18 ROM Limitations Soft Tissue Tightness Bony Restriction PT-OP-O Vestibular Start: 12/14/17 15:21 Freq: Status: Active Protocol: Document 12/14/17 14:03 DCW (Rec: 12/14/17 15:47 DCW [id number]) Vestibular Assessment Screening Tests Vestibular Artery Screen Negative Auditory Tests Rivero Test Negative Rinne Test Negative Air Conduction Results Equal Visual Testing Smooth Pursuits Horizontal Negative Saccades Horizontal Potential mild hypometria Heave Test Positive Right Thrust Head Positive Right Vestibular Function Tests CTSIB Position 1 Mild Sway CTSIB Position 2 Moderate Sway CTSIB Position 3 Moderate Sway CTSIB Position 4 Moderate Sway CTSIB Position 5 Fall Reaction CTSIB Position 6 Fall Reaction PT-OP-T Assessment and Plan Start: 12/14/17 15:21 Freq: Status: Active Protocol: Document 12/14/17 14:03 DCW (Rec: 12/14/17 15:47 DCW [id number]) Physical Therapy Assessment Rehab Potential Rehabilitation Potential Good Evaluation Complexity Number of Personal Factors/Comorbidities 3 or More Number of Body Systems Impaired 3 Clinical Presentation at Evaluation Evolving Impairments Impairments Balance Coordination Vestibular Goals Five Impairment Muscle tone Short Term Goal (STG) Tone in pt's upper trap, paraspinals, suboccipitals, and scalenes shouild be at worst mild bilaterally STG Duration 01/13/18 Four Impairment Limited cervical ROM Inspector Goal (LTG) Cervical lateral flexion to 30 bilaterally Cervical rotation equal bilaterally LTG Duration 02/13/18 Three Impairment CTSIB Penitentiary Goal (LTG) Pt to have at worst Moderate Sway in positions II- LTG Duration 02/13/18 Two Impairment Little Balance scale Penitentiary Goal (LTG) Pt to score 46/56 on Little Balance scale LTG Duration 02/13/18 One Impairment Decreased dynamic balance Inspector Goal (LTG) Pt to [facility] to his appointment at [facility] without needing the use of his walking stick LTG Duration 02/13/18 Assessment Summary Assessment Pt presents with a seemingly multi-factorial loss of balance, however has experienced noted improvement in both subjective and objective balance with prior therapy focusing on cervical mobility, balance training, and vestibular rehabilitation. Previous therapeutic intervention should be continued following his recent discharge from PT due to a laparoscopic colon resection. Physical Therapy Plan Frequency and Duration Frequency of Treatment 2x/Week Duration of Treatment 10 weeks Plan of Care Start Date 12/14/17 Plan of Care End Date 02/22/18 Therapeutic Interventions Therapeutic Interventions Aquatic Therapy Balance Training Home Exercise Program Joint Mobilizations Manual Therapy Neuromuscular Re-education Patient/Caregiver Education Self-Care/Home Management Soft Tissue Mobilization Therapeutic Exercises Modalities Cold Pack/Ice Massage Hot Packs Ultrasound Next Visit Focus/Plan Next Note Type Treatment Note Next Visit Plan Cervical STM, Manual traction, Balance training
--- NOTE | 2017-12-14 15:51 | PT.OPPOC ---
Current Diagnoses Other cervical disc degeneration, unspecified cervical region (12/14/17) Cervicalgia (12/14/17) Other abnormalities of gait and mobility (12/14/17) Provider Visit Care Team Role Provider Type Aniyah Feliciano MD Attending Provider Physician Family Provider Primary Care Provider Specialty: Family Practice Address: [address] [place] [address] Email: [email or web address] Plan Of Care PT-OP-T Assessment and Plan Start: 12/14/17 15:21 Freq: Status: Active Protocol: Document 12/14/17 14:03 DCW (Rec: 12/14/17 15:47 DCW [id number]) Physical Therapy Assessment Rehab Potential Rehabilitation Potential Good Evaluation Complexity Number of Personal Factors/Comorbidities 3 or More Number of Body Systems Impaired 3 Clinical Presentation at Evaluation Evolving Impairments Impairments Balance Coordination Vestibular Goals Five Impairment Muscle tone Short Term Goal (STG) Tone in pt's upper trap, paraspinals, suboccipitals, and scalenes shouild be at worst mild bilaterally STG Duration 01/13/18 Four Impairment Limited cervical ROM Disability Manager Goal (LTG) Cervical lateral flexion to 30 bilaterally Cervical rotation equal bilaterally LTG Duration 02/13/18 Three Impairment CTSIB Disability Manager Goal (LTG) Pt to have at worst Moderate Sway in positions II- LTG Duration 02/13/18 Two Impairment Little Balance scale Disability Manager Goal (LTG) Pt to score 46/56 on Little Balance scale LTG Duration 02/13/18 One Impairment Decreased dynamic balance Disability Manager Goal (LTG) Pt to walk from [facility] to his appointment at [facility] without needing the use of his walking stick LTG Duration 02/13/18 Assessment Summary Assessment Pt presents with a seemingly multi-factorial loss of balance, however has experienced noted improvement in both subjective and objective balance with prior therapy focusing on cervical mobility, balance training, and vestibular rehabilitation. Previous therapeutic intervention should be continued following his recent discharge from PT due to a laparoscopic colon resection. Physical Therapy Plan Frequency and Duration Frequency of Treatment 2x/Week Duration of Treatment 10 weeks Plan of Care Start Date 12/14/17 Plan of Care End Date 02/22/18 Therapeutic Interventions Therapeutic Interventions Aquatic Therapy Balance Training Home Exercise Program Joint Mobilizations Manual Therapy Neuromuscular Re-education Patient/Caregiver Education Self-Care/Home Management Soft Tissue Mobilization Therapeutic Exercises Modalities Cold Pack/Ice Massage Hot Packs Ultrasound Next Visit Focus/Plan Next Note Type Treatment Note Next Visit Plan Cervical STM, Manual traction, Balance training Plan of Care Dates Plan of Care Start Date 12/14/17 Plan of Care End Date 02/22/18 Please Sign and Return: I have reviewed this Plan of Care and certify that the skilled therapy services above are required to meet the patient?s needs. Physician Signature Date Printed Name and Credentials Clinical Instructor Signature Printed Name and Credentials
--- NOTE | 2017-12-21 15:14 | PT.OTN ---
Current Diagnoses Other abnormalities of gait and mobility (12/21/17) Physical Therapy Treatment Note PT-OP-A Visit Information Start: 12/14/17 15:21 Freq: Status: Active Protocol: Document 12/21/17 14:35 DCW (Rec: 12/21/17 15:14 DCW [id number]) Out-Patient Physical Therapy Visit Information Visit Information Visit Type Treatment Note Visit Start Time 14:35 Visit Stop Time 15:15 Total Visit Minutes 40 Visit Number 2 Number of DIAGRAM CLERK Visits 0 Evaluation Information Evaluation Date 12/14/17 PT-OP-B Current Condition Start: 12/14/17 15:21 Freq: Status: Active Protocol: Document 12/14/17 14:03 DCW (Rec: 12/14/17 15:47 DCW [id number]) Current Condition History of Current Condition Onset Date 8 months Current Complaints Pt has ongoing complaints of motion-induced imbalance History of Current Condition Pt is an 82 year-old male presenting with an eight month history of motion-induced imbalance. Pt was being treated at this clinic up until 11/30/17, after which he underwent a laparoscopic colon resection secondary to colon cancer. Pt was admitted to inpatient for four days following surgery, and then returned to [facility], where he has been living with his , who is suffering from dementia. Pt reports that his balance had be improving with his recent therapy, which had focused on both balance training and therapy for cervical hypertonia. Pt believes his balance issues are mainly caused by his cervical spine, and noticed a large improvement upon starting therapy for his cervical problems. Treatment Goals Patient/Caregiver Goals Pt's goal is to improve his balance Prior Functional Status Baseline Function- ADL's Modified Independent Baseline Function- Mobility Modified Independent Baseline Function- Gait Uses walking stick for stability Current Functional Impairments (Reported) Functional Limitations- Mobility/Gait Pt reports poor balance, requires an assistive device or a hand on a wall at all times. Pt has suffered multiple falls, the most recent being December last year (2016). PT-OP-C Subjective Start: 12/14/17 15:21 Freq: Status: Active Protocol: Document 12/21/17 14:35 DCW (Rec: 12/21/17 15:14 DCW [id number]) OP-PT Subjective Patient Comments Patient Comments My eyes have been funny all week. PT-OP-D Balance Start: 12/14/17 15:21 Freq: Status: Active Protocol: Document 12/14/17 14:03 DCW (Rec: 12/14/17 15:47 DCW [id number]) Balance Tests Little Balance Test Little Balance Test Score 40/56 Little Impairment Rating 20 to 39% Impaired (Score 34- 44) Little Balance Assessment Evaluation Sitting to Standing Ability Independent w/out Hands Unsupported Stance Safely- 2 minutes Sitting Unsupported, Feet on Floor Safely- 2 minutes Standing to Sitting Ability Safely, Minimal Hand Use Transfer Ability Safely, Minimal Hand Use Unsupported Stance- Eyes Closed Supervision, 10 seconds Unsupported Stance- Eyes Open Supervision to maintain Reaching Forward Standing Safely, 5 inches Pick- Up Object From Floor Within 2 inches, Unable Look Behind Shoulder - Standing Shifts Weight Unilateral Turning 360 Degrees Turns slowly, but safely Unsupported Stance, Alternating Feet on 4 Steps w/Supervision Stair Unsupported Tandem Stance Assist to Step-15 seconds Unilateral Leg Stance Lifts Leg/Unable to Hold Total Score Little Total Score (out of 56 points) 40 Little Impairment Rating 20 to 39% Impaired (Score 34- 44) PT-OP-F Manual Assessment Start: 12/14/17 15:48 Freq: Status: Active Protocol: Document 12/14/17 14:03 DCW (Rec: 12/14/17 15:49 DCW [id number]) Manual Assessments Soft Tissue Assessment Soft Tissue Mobility Assessment Muscle Tone: Upper trap: R mild, L WNL Suboccibitals: R mild, L moderate Scalenes: R WNL, L moderate Paraspinals: R mild, L moderate PT-OP-K Range of Motion Start: 12/14/17 15:21 Freq: Status: Active Protocol: Document 12/14/17 14:03 DCW (Rec: 12/14/17 15:47 DCW [id number]) Cervical Spine Range of Motion Cervical Spine Active Degrees Testing Position Sitting Flexion 45 Extension 40 Rotation Left 38 Rotation Right 45 Lateral Flexion Left 25 Lateral Flexion Right 18 ROM Limitations Soft Tissue Tightness Bony Restriction PT-OP-O Vestibular Start: 12/14/17 15:21 Freq: Status: Active Protocol: Document 12/14/17 14:03 DCW (Rec: 12/14/17 15:47 DCW [id number]) Vestibular Assessment Screening Tests Vestibular Artery Screen Negative Auditory Tests Rivero Test Negative Rinne Test Negative Air Conduction Results Equal Visual Testing Smooth Pursuits Horizontal Negative Saccades Horizontal Potential mild hypometria Heave Test Positive Right Thrust Head Positive Right Vestibular Function Tests CTSIB Position 1 Mild Sway CTSIB Position 2 Moderate Sway CTSIB Position 3 Moderate Sway CTSIB Position 4 Moderate Sway CTSIB Position 5 Fall Reaction CTSIB Position 6 Fall Reaction PT-OP-Q Treatments Start: 12/14/17 15:21 Freq: Status: Active Protocol: Document 12/21/17 14:35 DCW (Rec: 12/21/17 15:14 DCW [id number]) Gym Equipment Shuttle Balance 1 Details Red - Wide ARMANI (Eyes open, Following target), Staggered Stance Manual Therapy Treatment Soft Tissue Mobilization 2 Body Location Suboccipitals Mobilization Type Sustained Pressure Intensity/Depth Superficial Body Position Supine 1 Body Location Upper Trap Mobilization Type Strain/Counterstrain Sustained Pressure Trigger Point Release Intensity/Depth Moderate Body Position Supine Manual Traction Cervical Body Position Supine Manual Techniques Cervical MET Type Resisted cervical rotation for C2 placement PT-OP-T Assessment and Plan Start: 12/14/17 15:21 Freq: Status: Active Protocol: Document 12/21/17 14:35 DCW (Rec: 12/21/17 15:14 DCW [id number]) Physical Therapy Assessment Impairments Impairments Balance Coordination Vestibular Goals Five Impairment Muscle tone Short Term Goal (STG) Tone in pt's upper trap, paraspinals, suboccipitals, and scalenes shouild be at worst mild bilaterally STG Duration 01/13/18 Four Impairment Limited cervical ROM Intermediate Goal (LTG) Cervical lateral flexion to 30 bilaterally Cervical rotation equal bilaterally LTG Duration 02/13/18 Three Impairment CTSIB Intermediate Goal (LTG) Pt to have at worst Moderate Sway in positions II- LTG Duration 02/13/18 Two Impairment Little Balance scale Stained Glass Glazier Helper Goal (LTG) Pt to score 46/56 on Little Balance scale LTG Duration 02/13/18 One Impairment Decreased dynamic balance Stained Glass Glazier Helper Goal (LTG) Pt to walk from [facility] to his appointment at [facility] without needing the use of his walking stick LTG Duration 02/13/18 Assessment Summary Assessment Pt responded well to manual therapy of cervical musculature, decreased tone by end of session. Pt reported improved vision as well, and noted his balance felt better. Physical Therapy Plan Frequency and Duration Frequency of Treatment 2x/Week Duration of Treatment 10 weeks Plan of Care Start Date 12/14/17 Plan of Care End Date 02/22/18 Therapeutic Interventions Therapeutic Interventions Aquatic Therapy Balance Training Home Exercise Program Joint Mobilizations Manual Therapy Neuromuscular Re-education Patient/Caregiver Education Self-Care/Home Management Soft Tissue Mobilization Therapeutic Exercises Modalities Cold Pack/Ice Massage Hot Packs Ultrasound Hold Physical Therapy Reason For Hold Colon cancer surgery Next Visit Focus/Plan Next Note Type Treatment Note Next Visit Plan Cervical STM, Manual traction, Balance training
--- NOTE | 2017-12-25 15:13 | PT.OTN ---
Current Diagnoses Other abnormalities of gait and mobility (12/25/17) Physical Therapy Treatment Note PT-OP-A Visit Information Start: 12/14/17 15:21 Freq: Status: Active Protocol: Document 12/25/17 14:30 DCW (Rec: 12/25/17 15:13 DCW [id number]) Out-Patient Physical Therapy Visit Information Visit Information Visit Type Treatment Note Visit Start Time 14:30 Visit Stop Time 15:15 Total Visit Minutes 45 Visit Number 3 Number of CLIENT DELIVERY SPECIALIST Visits 0 Evaluation Information Evaluation Date 12/14/17 PT-OP-B Current Condition Start: 12/14/17 15:21 Freq: Status: Active Protocol: Document 12/14/17 14:03 DCW (Rec: 12/14/17 15:47 DCW [id number]) Current Condition History of Current Condition Onset Date 8 months Current Complaints Pt has ongoing complaints of motion-induced imbalance History of Current Condition Pt is an 82 year-old male presenting with an eight month history of motion-induced imbalance. Pt was being treated at this clinic up until 11/30/17, after which he underwent a laparoscopic colon resection secondary to colon cancer. Pt was admitted to inpatient for four days following surgery, and then returned to [facility], where he has been living with his , who is suffering from dementia. Pt reports that his balance had be improving with his recent therapy, which had focused on both balance training and therapy for cervical hypertonia. Pt believes his balance issues are mainly caused by his cervical spine, and noticed a large improvement upon starting therapy for his cervical problems. Treatment Goals Patient/Caregiver Goals Pt's goal is to improve his balance Prior Functional Status Baseline Function- ADL's Modified Independent Baseline Function- Mobility Modified Independent Baseline Function- Gait Uses walking stick for stability Current Functional Impairments (Reported) Functional Limitations- Mobility/Gait Pt reports poor balance, requires an assistive device or a hand on a wall at all times. Pt has suffered multiple falls, the most recent being December last year (2016). PT-OP-C Subjective Start: 12/14/17 15:21 Freq: Status: Active Protocol: Document 12/25/17 14:30 DCW (Rec: 12/25/17 15:13 DCW [id number]) OP-PT Subjective Patient Comments Patient Comments Pt reports his neck has been feeling tight since Monday, does not remember anything new occur ring. PT-OP-D Balance Start: 12/14/17 15:21 Freq: Status: Active Protocol: Document 12/14/17 14:03 DCW (Rec: 12/14/17 15:47 DCW [id number]) Balance Tests Little Balance Test Little Balance Test Score 40/56 Little Impairment Rating 20 to 39% Impaired (Score 34- 44) Little Balance Assessment Evaluation Sitting to Standing Ability Independent w/out Hands Unsupported Stance Safely- 2 minutes Sitting Unsupported, Feet on Floor Safely- 2 minutes Standing to Sitting Ability Safely, Minimal Hand Use Transfer Ability Safely, Minimal Hand Use Unsupported Stance- Eyes Closed Supervision, 10 seconds Unsupported Stance- Eyes Open Supervision to maintain Reaching Forward Standing Safely, 5 inches Pick- Up Object From Floor Within 2 inches, Unable Look Behind Shoulder - Standing Shifts Weight Unilateral Turning 360 Degrees Turns slowly, but safely Unsupported Stance, Alternating Feet on 4 Steps w/Supervision Stair Unsupported Tandem Stance Assist to Step-15 seconds Unilateral Leg Stance Lifts Leg/Unable to Hold Total Score Little Total Score (out of 56 points) 40 Little Impairment Rating 20 to 39% Impaired (Score 34- 44) PT-OP-F Manual Assessment Start: 12/14/17 15:48 Freq: Status: Active Protocol: Document 12/14/17 14:03 DCW (Rec: 12/14/17 15:49 DCW [id number]) Manual Assessments Soft Tissue Assessment Soft Tissue Mobility Assessment Muscle Tone: Upper trap: R mild, L WNL Suboccibitals: R mild, L moderate Scalenes: R WNL, L moderate Paraspinals: R mild, L moderate PT-OP-K Range of Motion Start: 12/14/17 15:21 Freq: Status: Active Protocol: Document 12/14/17 14:03 DCW (Rec: 12/14/17 15:47 DCW [id number]) Cervical Spine Range of Motion Cervical Spine Active Degrees Testing Position Sitting Flexion 45 Extension 40 Rotation Left 38 Rotation Right 45 Lateral Flexion Left 25 Lateral Flexion Right 18 ROM Limitations Soft Tissue Tightness Bony Restriction PT-OP-O Vestibular Start: 12/14/17 15:21 Freq: Status: Active Protocol: Document 12/14/17 14:03 DCW (Rec: 12/14/17 15:47 DCW [id number]) Vestibular Assessment Screening Tests Vestibular Artery Screen Negative Auditory Tests Rivero Test Negative Rinne Test Negative Air Conduction Results Equal Visual Testing Smooth Pursuits Horizontal Negative Saccades Horizontal Potential mild hypometria Heave Test Positive Right Thrust Head Positive Right Vestibular Function Tests CTSIB Position 1 Mild Sway CTSIB Position 2 Moderate Sway CTSIB Position 3 Moderate Sway CTSIB Position 4 Moderate Sway CTSIB Position 5 Fall Reaction CTSIB Position 6 Fall Reaction PT-OP-Q Treatments Start: 12/14/17 15:21 Freq: Status: Active Protocol: Document 12/25/17 14:30 DCW (Rec: 12/25/17 15:13 DCW [id number]) Manual Therapy Treatment Soft Tissue Mobilization 2 Body Location Suboccipitals Mobilization Type Sustained Pressure Intensity/Depth Superficial Body Position Supine 1 Body Location Upper Trap Mobilization Type Strain/Counterstrain Sustained Pressure Trigger Point Release Intensity/Depth Moderate Body Position Supine Manual Traction Cervical Body Position Supine Manual Techniques Cervical MET Type Resisted cervical rotation for C2 placement PT-OP-T Assessment and Plan Start: 12/14/17 15:21 Freq: Status: Active Protocol: Document 12/25/17 14:30 DCW (Rec: 12/25/17 15:13 DCW [id number]) Physical Therapy Assessment Impairments Impairments Balance Coordination Vestibular Goals Five Impairment Muscle tone Short Term Goal (STG) Tone in pt's upper trap, paraspinals, suboccipitals, and scalenes shouild be at worst mild bilaterally STG Duration 01/13/18 Four Impairment Limited cervical ROM Customer Service Representative Teller Goal (LTG) Cervical lateral flexion to 30 bilaterally Cervical rotation equal bilaterally LTG Duration 02/13/18 Three Impairment CTSIB Prison Goal (LTG) Pt to have at worst Moderate Sway in positions II- LTG Duration 02/13/18 Two Impairment Little Balance scale Customer Service Representative Teller Goal (LTG) Pt to score 46/56 on Little Balance scale LTG Duration 02/13/18 One Impairment Decreased dynamic balance Customer Service Representative Teller Goal (LTG) Pt to walk from [facility] to his appointment at [facility] without needing the use of his walking stick LTG Duration 02/13/18 Assessment Summary Assessment Pt again responded well to manual therapy, reporting everything feels better by the end of his treatment session, however pt did note lightheadedness following ~10 minutes on the shuttle balance , and session was ended at that time, although time was up anyway.. Physical Therapy Plan Frequency and Duration Frequency of Treatment 2x/Week Duration of Treatment 10 weeks Plan of Care Start Date 12/14/17 Plan of Care End Date 02/22/18 Therapeutic Interventions Therapeutic Interventions Aquatic Therapy Balance Training Home Exercise Program Joint Mobilizations Manual Therapy Neuromuscular Re-education Patient/Caregiver Education Self-Care/Home Management Soft Tissue Mobilization Therapeutic Exercises Modalities Cold Pack/Ice Massage Hot Packs Ultrasound Hold Physical Therapy Reason For Hold Colon cancer surgery Next Visit Focus/Plan Next Note Type Treatment Note Next Visit Plan Cervical STM, Manual traction, Balance training
--- NOTE | 2017-12-28 15:13 | PT.OTN ---
Current Diagnoses Other abnormalities of gait and mobility (12/28/17) Physical Therapy Treatment Note PT-OP-A Visit Information Start: 12/14/17 15:21 Freq: Status: Active Protocol: Document 12/28/17 14:30 DCW (Rec: 12/28/17 15:13 DCW [id number]) Out-Patient Physical Therapy Visit Information Visit Information Visit Type Treatment Note Visit Start Time 14:30 Visit Stop Time 15:15 Total Visit Minutes 45 Visit Number 4 Number of AUDIO VIDEO TECH Visits 0 Evaluation Information Evaluation Date 12/14/17 PT-OP-B Current Condition Start: 12/14/17 15:21 Freq: Status: Active Protocol: Document 12/14/17 14:03 DCW (Rec: 12/14/17 15:47 DCW [id number]) Current Condition History of Current Condition Onset Date 8 months Current Complaints Pt has ongoing complaints of motion-induced imbalance History of Current Condition Pt is an 82 year-old male presenting with an eight month history of motion-induced imbalance. Pt was being treated at this clinic up until 11/30/17, after which he underwent a laparoscopic colon resection secondary to colon cancer. Pt was admitted to inpatient for four days following surgery, and then returned to [facility], where he has been living with his , who is suffering from dementia. Pt reports that his balance had be improving with his recent therapy, which had focused on both balance training and therapy for cervical hypertonia. Pt believes his balance issues are mainly caused by his cervical spine, and noticed a large improvement upon starting therapy for his cervical problems. Treatment Goals Patient/Caregiver Goals Pt's goal is to improve his balance Prior Functional Status Baseline Function- ADL's Modified Independent Baseline Function- Mobility Modified Independent Baseline Function- Gait Uses walking stick for stability Current Functional Impairments (Reported) Functional Limitations- Mobility/Gait Pt reports poor balance, requires an assistive device or a hand on a wall at all times. Pt has suffered multiple falls, the most recent being December last year (2016). PT-OP-C Subjective Start: 12/14/17 15:21 Freq: Status: Active Protocol: Document 12/28/17 14:30 DCW (Rec: 12/28/17 15:13 DCW [id number]) OP-PT Subjective Patient Comments Patient Comments Pt reports he is feeling a bit tippy today. PT-OP-D Balance Start: 12/14/17 15:21 Freq: Status: Active Protocol: Document 12/14/17 14:03 DCW (Rec: 12/14/17 15:47 DCW [id number]) Balance Tests Little Balance Test Little Balance Test Score 40/56 Little Impairment Rating 20 to 39% Impaired (Score 34- 44) Little Balance Assessment Evaluation Sitting to Standing Ability Independent w/out Hands Unsupported Stance Safely- 2 minutes Sitting Unsupported, Feet on Floor Safely- 2 minutes Standing to Sitting Ability Safely, Minimal Hand Use Transfer Ability Safely, Minimal Hand Use Unsupported Stance- Eyes Closed Supervision, 10 seconds Unsupported Stance- Eyes Open Supervision to maintain Reaching Forward Standing Safely, 5 inches Pick- Up Object From Floor Within 2 inches, Unable Look Behind Shoulder - Standing Shifts Weight Unilateral Turning 360 Degrees Turns slowly, but safely Unsupported Stance, Alternating Feet on 4 Steps w/Supervision Stair Unsupported Tandem Stance Assist to Step-15 seconds Unilateral Leg Stance Lifts Leg/Unable to Hold Total Score Little Total Score (out of 56 points) 40 Little Impairment Rating 20 to 39% Impaired (Score 34- 44) PT-OP-F Manual Assessment Start: 12/14/17 15:48 Freq: Status: Active Protocol: Document 12/14/17 14:03 DCW (Rec: 12/14/17 15:49 DCW [id number]) Manual Assessments Soft Tissue Assessment Soft Tissue Mobility Assessment Muscle Tone: Upper trap: R mild, L WNL Suboccibitals: R mild, L moderate Scalenes: R WNL, L moderate Paraspinals: R mild, L moderate PT-OP-K Range of Motion Start: 12/14/17 15:21 Freq: Status: Active Protocol: Document 12/14/17 14:03 DCW (Rec: 12/14/17 15:47 DCW [id number]) Cervical Spine Range of Motion Cervical Spine Active Degrees Testing Position Sitting Flexion 45 Extension 40 Rotation Left 38 Rotation Right 45 Lateral Flexion Left 25 Lateral Flexion Right 18 ROM Limitations Soft Tissue Tightness Bony Restriction PT-OP-O Vestibular Start: 12/14/17 15:21 Freq: Status: Active Protocol: Document 12/14/17 14:03 DCW (Rec: 12/14/17 15:47 DCW [id number]) Vestibular Assessment Screening Tests Vestibular Artery Screen Negative Auditory Tests Rivero Test Negative Rinne Test Negative Air Conduction Results Equal Visual Testing Smooth Pursuits Horizontal Negative Saccades Horizontal Potential mild hypometria Heave Test Positive Right Thrust Head Positive Right Vestibular Function Tests CTSIB Position 1 Mild Sway CTSIB Position 2 Moderate Sway CTSIB Position 3 Moderate Sway CTSIB Position 4 Moderate Sway CTSIB Position 5 Fall Reaction CTSIB Position 6 Fall Reaction PT-OP-Q Treatments Start: 12/14/17 15:21 Freq: Status: Active Protocol: Document 12/28/17 14:30 DCW (Rec: 12/28/17 15:13 DCW [id number]) Manual Therapy Treatment Soft Tissue Mobilization 2 Body Location Suboccipitals Mobilization Type Sustained Pressure Intensity/Depth Superficial Body Position Supine 1 Body Location Upper Trap Mobilization Type Strain/Counterstrain Sustained Pressure Trigger Point Release Intensity/Depth Moderate Body Position Supine Manual Traction Cervical Body Position Supine PT-OP-T Assessment and Plan Start: 12/14/17 15:21 Freq: Status: Active Protocol: Document 12/28/17 14:30 DCW (Rec: 12/28/17 15:13 DCW [id number]) Physical Therapy Assessment Impairments Impairments Balance Coordination Vestibular Goals Five Impairment Muscle tone Short Term Goal (STG) Tone in pt's upper trap, paraspinals, suboccipitals, and scalenes shouild be at worst mild bilaterally STG Duration 01/13/18 Four Impairment Limited cervical ROM Bat Lathe Operator Goal (LTG) Cervical lateral flexion to 30 bilaterally Cervical rotation equal bilaterally LTG Duration 02/13/18 Three Impairment CTSIB Bat Lathe Operator Goal (LTG) Pt to have at worst Moderate Sway in positions II- LTG Duration 02/13/18 Two Impairment Little Balance scale Detention Goal (LTG) Pt to score 46/56 on Little Balance scale LTG Duration 02/13/18 One Impairment Decreased dynamic balance Bat Lathe Operator Goal (LTG) Pt to walk from [facility] to his appointment at [facility] without needing the use of his walking stick LTG Duration 02/13/18 Assessment Summary Assessment Pt did very well today on the Shuttle Balance, maintaining his stability with minimal assistance Physical Therapy Plan Frequency and Duration Frequency of Treatment 2x/Week Duration of Treatment 10 weeks Plan of Care Start Date 12/14/17 Plan of Care End Date 02/22/18 Therapeutic Interventions Therapeutic Interventions Aquatic Therapy Balance Training Home Exercise Program Joint Mobilizations Manual Therapy Neuromuscular Re-education Patient/Caregiver Education Self-Care/Home Management Soft Tissue Mobilization Therapeutic Exercises Modalities Cold Pack/Ice Massage Hot Packs Ultrasound Next Visit Focus/Plan Next Note Type Treatment Note Next Visit Plan Cervical STM, Manual traction, Balance training
--- NOTE | 2018-01-01 15:56 | PT.OTN ---
Current Diagnoses Other abnormalities of gait and mobility (01/01/18) Physical Therapy Treatment Note PT-OP-A Visit Information Start: 12/14/17 15:21 Freq: Status: Active Protocol: Document 01/01/18 15:15 DCW (Rec: 01/01/18 15:55 DCW [id number]) Out-Patient Physical Therapy Visit Information Visit Information Visit Type Treatment Note Visit Start Time 15:15 Visit Stop Time 16:00 Total Visit Minutes 45 Visit Number 5 Number of BOX BLANK MACHINE FEEDER Visits 0 Evaluation Information Evaluation Date 12/14/17 PT-OP-B Current Condition Start: 12/14/17 15:21 Freq: Status: Active Protocol: Document 12/14/17 14:03 DCW (Rec: 12/14/17 15:47 DCW [id number]) Current Condition History of Current Condition Onset Date 8 months Current Complaints Pt has ongoing complaints of motion-induced imbalance History of Current Condition Pt is an 82 year-old male presenting with an eight month history of motion-induced imbalance. Pt was being treated at this clinic up until 11/30/17, after which he underwent a laparoscopic colon resection secondary to colon cancer. Pt was admitted to inpatient for four days following surgery, and then returned to [facility], where he has been living with his , who is suffering from dementia. Pt reports that his balance had be improving with his recent therapy, which had focused on both balance training and therapy for cervical hypertonia. Pt believes his balance issues are mainly caused by his cervical spine, and noticed a large improvement upon starting therapy for his cervical problems. Treatment Goals Patient/Caregiver Goals Pt's goal is to improve his balance Prior Functional Status Baseline Function- ADL's Modified Independent Baseline Function- Mobility Modified Independent Baseline Function- Gait Uses walking stick for stability Current Functional Impairments (Reported) Functional Limitations- Mobility/Gait Pt reports poor balance, requires an assistive device or a hand on a wall at all times. Pt has suffered multiple falls, the most recent being December last year (2016). PT-OP-C Subjective Start: 12/14/17 15:21 Freq: Status: Active Protocol: Document 01/01/18 15:15 DCW (Rec: 01/01/18 15:55 DCW [id number]) OP-PT Subjective Patient Comments Patient Comments Pt admits that he is moving better today than he was last week, but that his vision is funny as hell. PT-OP-D Balance Start: 12/14/17 15:21 Freq: Status: Active Protocol: Document 12/14/17 14:03 DCW (Rec: 12/14/17 15:47 DC [id number]) Balance Tests Little Balance Test Little Balance Test Score 40/56 Little Impairment Rating 20 to 39% Impaired (Score 34- 44) Little Balance Assessment Evaluation Sitting to Standing Ability Independent w/out Hands Unsupported Stance Safely- 2 minutes Sitting Unsupported, Feet on Floor Safely- 2 minutes Standing to Sitting Ability Safely, Minimal Hand Use Transfer Ability Safely, Minimal Hand Use Unsupported Stance- Eyes Closed Supervision, 10 seconds Unsupported Stance- Eyes Open Supervision to maintain Reaching Forward Standing Safely, 5 inches Pick- Up Object From Floor Within 2 inches, Unable Look Behind Shoulder - Standing Shifts Weight Unilateral Turning 360 Degrees Turns slowly, but safely Unsupported Stance, Alternating Feet on 4 Steps w/Supervision Stair Unsupported Tandem Stance Assist to Step-15 seconds Unilateral Leg Stance Lifts Leg/Unable to Hold Total Score Little Total Score (out of 56 points) 40 Little Impairment Rating 20 to 39% Impaired (Score 34- 44) PT-OP-F Manual Assessment Start: 12/14/17 15:48 Freq: Status: Active Protocol: Document 12/14/17 14:03 DCW (Rec: 12/14/17 15:49 DC [id number]) Manual Assessments Soft Tissue Assessment Soft Tissue Mobility Assessment Muscle Tone: Upper trap: R mild, L WNL Suboccibitals: R mild, L moderate Scalenes: R WNL, L moderate Paraspinals: R mild, L moderate PT-OP-K Range of Motion Start: 12/14/17 15:21 Freq: Status: Active Protocol: Document 12/14/17 14:03 DCW (Rec: 12/14/17 15:47 DCW [id number]) Cervical Spine Range of Motion Cervical Spine Active Degrees Testing Position Sitting Flexion 45 Extension 40 Rotation Left 38 Rotation Right 45 Lateral Flexion Left 25 Lateral Flexion Right 18 ROM Limitations Soft Tissue Tightness Bony Restriction PT-OP-O Vestibular Start: 12/14/17 15:21 Freq: Status: Active Protocol: Document 12/14/17 14:03 DCW (Rec: 12/14/17 15:47 DCW [id number]) Vestibular Assessment Screening Tests Vestibular Artery Screen Negative Auditory Tests Rivero Test Negative Rinne Test Negative Air Conduction Results Equal Visual Testing Smooth Pursuits Horizontal Negative Saccades Horizontal Potential mild hypometria Heave Test Positive Right Thrust Head Positive Right Vestibular Function Tests CTSIB Position 1 Mild Sway CTSIB Position 2 Moderate Sway CTSIB Position 3 Moderate Sway CTSIB Position 4 Moderate Sway CTSIB Position 5 Fall Reaction CTSIB Position 6 Fall Reaction PT-OP-Q Treatments Start: 12/14/17 15:21 Freq: Status: Active Protocol: Document 01/01/18 15:15 DCW (Rec: 01/01/18 15:55 DCW [id number]) Gym Equipment Shuttle Balance 1 Details Red - Wide ARMANI (Eyes open, Following target), Staggered Stance Manual Therapy Treatment Soft Tissue Mobilization 2 Body Location Suboccipitals Mobilization Type Sustained Pressure Intensity/Depth Superficial Body Position Supine 1 Body Location Upper Trap Mobilization Type Strain/Counterstrain Sustained Pressure Trigger Point Release Intensity/Depth Moderate Body Position Supine Manual Traction Cervical Body Position Supine PT-OP-T Assessment and Plan Start: 12/14/17 15:21 Freq: Status: Active Protocol: Document 01/01/18 15:15 DCW (Rec: 01/01/18 15:55 DCW [id number]) Physical Therapy Assessment Impairments Impairments Balance Coordination Vestibular Goals Five Impairment Muscle tone Short Term Goal (STG) Tone in pt's upper trap, paraspinals, suboccipitals, and scalenes shouild be at worst mild bilaterally STG Duration 01/13/18 Four Impairment Limited cervical ROM Regional Owner Operator Truck Driver Goal (LTG) Cervical lateral flexion to 30 bilaterally Cervical rotation equal bilaterally LTG Duration 02/13/18 Three Impairment CTSIB Custodial Goal (LTG) Pt to have at worst Moderate Sway in positions II- LTG Duration 02/13/18 Two Impairment Little Balance scale Regional Owner Operator Truck Driver Goal (LTG) Pt to score 46/56 on Little Balance scale LTG Duration 02/13/18 One Impairment Decreased dynamic balance Custodial Goal (LTG) Pt to walk from [facility] to his appointment at [facility] without needing the use of his walking stick LTG Duration 02/13/18 Assessment Summary Assessment Pt again did well on the shuttle balance, improved muscle tone in cervical spine. Physical Therapy Plan Frequency and Duration Frequency of Treatment 2x/Week Duration of Treatment 10 weeks Plan of Care Start Date 12/14/17 Plan of Care End Date 02/22/18 Therapeutic Interventions Therapeutic Interventions Aquatic Therapy Balance Training Home Exercise Program Joint Mobilizations Manual Therapy Neuromuscular Re-education Patient/Caregiver Education Self-Care/Home Management Soft Tissue Mobilization Therapeutic Exercises Modalities Cold Pack/Ice Massage Hot Packs Ultrasound Next Visit Focus/Plan Next Note Type Treatment Note Next Visit Plan Cervical STM, Manual traction, Balance training
--- NOTE | 2018-01-03 15:58 | PT.OTN ---
Current Diagnoses Other abnormalities of gait and mobility (01/03/18) Physical Therapy Treatment Note PT-OP-A Visit Information Start: 12/14/17 15:21 Freq: Status: Active Protocol: Document 01/03/18 15:15 DCW (Rec: 01/03/18 15:58 DCW [id number]) Out-Patient Physical Therapy Visit Information Visit Information Visit Type Treatment Note Visit Start Time 15:15 Visit Stop Time 16:00 Total Visit Minutes 45 Visit Number 6 Number of PHOTOENGRAVING PROOFER Visits 0 Evaluation Information Evaluation Date 12/14/17 PT-OP-B Current Condition Start: 12/14/17 15:21 Freq: Status: Active Protocol: Document 12/14/17 14:03 DCW (Rec: 12/14/17 15:47 DCW [id number]) Current Condition History of Current Condition Onset Date 8 months Current Complaints Pt has ongoing complaints of motion-induced imbalance History of Current Condition Pt is an 82 year-old male presenting with an eight month history of motion-induced imbalance. Pt was being treated at this clinic up until 11/30/17, after which he underwent a laparoscopic colon resection secondary to colon cancer. Pt was admitted to inpatient for four days following surgery, and then returned to [facility], where he has been living with his , who is suffering from dementia. Pt reports that his balance had be improving with his recent therapy, which had focused on both balance training and therapy for cervical hypertonia. Pt believes his balance issues are mainly caused by his cervical spine, and noticed a large improvement upon starting therapy for his cervical problems. Treatment Goals Patient/Caregiver Goals Pt's goal is to improve his balance Prior Functional Status Baseline Function- ADL's Modified Independent Baseline Function- Mobility Modified Independent Baseline Function- Gait Uses walking stick for stability Current Functional Impairments (Reported) Functional Limitations- Mobility/Gait Pt reports poor balance, requires an assistive device or a hand on a wall at all times. Pt has suffered multiple falls, the most recent being December last year (2016). PT-OP-C Subjective Start: 12/14/17 15:21 Freq: Status: Active Protocol: Document 01/03/18 15:15 DCW (Rec: 01/03/18 15:58 DCW [id number]) OP-PT Subjective Patient Comments Patient Comments Other than not sleeping well last night, I'm feeling pretty good. PT-OP-D Balance Start: 12/14/17 15:21 Freq: Status: Active Protocol: Document 12/14/17 14:03 DCW (Rec: 12/14/17 15:47 DCW [id number]) Balance Tests Little Balance Test Little Balance Test Score 40/56 Little Impairment Rating 20 to 39% Impaired (Score 34- 44) Little Balance Assessment Evaluation Sitting to Standing Ability Independent w/out Hands Unsupported Stance Safely- 2 minutes Sitting Unsupported, Feet on Floor Safely- 2 minutes Standing to Sitting Ability Safely, Minimal Hand Use Transfer Ability Safely, Minimal Hand Use Unsupported Stance- Eyes Closed Supervision, 10 seconds Unsupported Stance- Eyes Open Supervision to maintain Reaching Forward Standing Safely, 5 inches Pick- Up Object From Floor Within 2 inches, Unable Look Behind Shoulder - Standing Shifts Weight Unilateral Turning 360 Degrees Turns slowly, but safely Unsupported Stance, Alternating Feet on 4 Steps w/Supervision Stair Unsupported Tandem Stance Assist to Step-15 seconds Unilateral Leg Stance Lifts Leg/Unable to Hold Total Score Little Total Score (out of 56 points) 40 Little Impairment Rating 20 to 39% Impaired (Score 34- 44) PT-OP-F Manual Assessment Start: 12/14/17 15:48 Freq: Status: Active Protocol: Document 12/14/17 14:03 DCW (Rec: 12/14/17 15:49 DCW [id number]) Manual Assessments Soft Tissue Assessment Soft Tissue Mobility Assessment Muscle Tone: Upper trap: R mild, L WNL Suboccibitals: R mild, L moderate Scalenes: R WNL, L moderate Paraspinals: R mild, L moderate PT-OP-K Range of Motion Start: 12/14/17 15:21 Freq: Status: Active Protocol: Document 12/14/17 14:03 DCW (Rec: 12/14/17 15:47 DCW [id number]) Cervical Spine Range of Motion Cervical Spine Active Degrees Testing Position Sitting Flexion 45 Extension 40 Rotation Left 38 Rotation Right 45 Lateral Flexion Left 25 Lateral Flexion Right 18 ROM Limitations Soft Tissue Tightness Bony Restriction PT-OP-O Vestibular Start: 12/14/17 15:21 Freq: Status: Active Protocol: Document 12/14/17 14:03 DCW (Rec: 12/14/17 15:47 DCW [id number]) Vestibular Assessment Screening Tests Vestibular Artery Screen Negative Auditory Tests Rivero Test Negative Rinne Test Negative Air Conduction Results Equal Visual Testing Smooth Pursuits Horizontal Negative Saccades Horizontal Potential mild hypometria Heave Test Positive Right Thrust Head Positive Right Vestibular Function Tests CTSIB Position 1 Mild Sway CTSIB Position 2 Moderate Sway CTSIB Position 3 Moderate Sway CTSIB Position 4 Moderate Sway CTSIB Position 5 Fall Reaction CTSIB Position 6 Fall Reaction PT-OP-Q Treatments Start: 12/14/17 15:21 Freq: Status: Active Protocol: Document 01/03/18 15:15 DCW (Rec: 01/03/18 15:58 DCW [id number]) Manual Therapy Treatment Soft Tissue Mobilization 2 Body Location Suboccipitals Mobilization Type Sustained Pressure Intensity/Depth Superficial Body Position Supine 1 Body Location Upper Trap Mobilization Type Strain/Counterstrain Sustained Pressure Trigger Point Release Intensity/Depth Moderate Body Position Supine Manual Traction Cervical Body Position Supine PT-OP-T Assessment and Plan Start: 12/14/17 15:21 Freq: Status: Active Protocol: Document 01/03/18 15:15 DCW (Rec: 01/03/18 15:58 DCW [id number]) Physical Therapy Assessment Impairments Impairments Balance Coordination Vestibular Goals Five Impairment Muscle tone Short Term Goal (STG) Tone in pt's upper trap, paraspinals, suboccipitals, and scalenes shouild be at worst mild bilaterally STG Duration 01/13/18 Four Impairment Limited cervical ROM Supervisor Whipped Topping Goal (LTG) Cervical lateral flexion to 30 bilaterally Cervical rotation equal bilaterally LTG Duration 02/13/18 Three Impairment CTSIB Supervisor Whipped Topping Goal (LTG) Pt to have at worst Moderate Sway in positions II- LTG Duration 02/13/18 Two Impairment Little Balance scale Supervisor Whipped Topping Goal (LTG) Pt to score 46/56 on Little Balance scale LTG Duration 02/13/18 One Impairment Decreased dynamic balance Correction Goal (LTG) Pt to [facility] from [facility] to his appointment at [facility] without needing the use of his walking stick LTG Duration 02/13/18 Assessment Summary Assessment Cervical muscle tone continues to improve, demonstrates some improved cervical ROM. Physical Therapy Plan Frequency and Duration Frequency of Treatment 2x/Week Duration of Treatment 10 weeks Plan of Care Start Date 12/14/17 Plan of Care End Date 02/22/18 Therapeutic Interventions Therapeutic Interventions Aquatic Therapy Balance Training Home Exercise Program Joint Mobilizations Manual Therapy Neuromuscular Re-education Patient/Caregiver Education Self-Care/Home Management Soft Tissue Mobilization Therapeutic Exercises Modalities Cold Pack/Ice Massage Hot Packs Ultrasound Next Visit Focus/Plan Next Note Type Treatment Note Next Visit Plan Cervical STM, Manual traction, Balance training
--- NOTE | 2018-01-11 15:16 | PT.OTN ---
Current Diagnoses Other abnormalities of gait and mobility (01/11/18) Physical Therapy Treatment Note PT-OP-A Visit Information Start: 12/14/17 15:21 Freq: Status: Active Protocol: Document 01/11/18 14:30 DCW (Rec: 01/11/18 15:16 DCW [id number]) Out-Patient Physical Therapy Visit Information Visit Information Visit Type Treatment Note Visit Start Time 14:30 Visit Stop Time 15:15 Total Visit Minutes 45 Visit Number 7 Number of TRANSIT POLICE OFFICER Visits 0 Evaluation Information Evaluation Date 12/14/17 PT-OP-B Current Condition Start: 12/14/17 15:21 Freq: Status: Active Protocol: Document 12/14/17 14:03 DCW (Rec: 12/14/17 15:47 DCW [id number]) Current Condition History of Current Condition Onset Date 8 months Current Complaints Pt has ongoing complaints of motion-induced imbalance History of Current Condition Pt is an 82 year-old male presenting with an eight month history of motion-induced imbalance. Pt was being treated at this clinic up until 11/30/17, after which he underwent a laparoscopic colon resection secondary to colon cancer. Pt was admitted to inpatient for four days following surgery, and then returned to [facility], where he has been living with his , who is suffering from dementia. Pt reports that his balance had be improving with his recent therapy, which had focused on both balance training and therapy for cervical hypertonia. Pt believes his balance issues are mainly caused by his cervical spine, and noticed a large improvement upon starting therapy for his cervical problems. Treatment Goals Patient/Caregiver Goals Pt's goal is to improve his balance Prior Functional Status Baseline Function- ADL's Modified Independent Baseline Function- Mobility Modified Independent Baseline Function- Gait Uses walking stick for stability Current Functional Impairments (Reported) Functional Limitations- Mobility/Gait Pt reports poor balance, requires an assistive device or a hand on a wall at all times. Pt has suffered multiple falls, the most recent being December last year (2016). PT-OP-C Subjective Start: 12/14/17 15:21 Freq: Status: Active Protocol: Document 01/11/18 14:30 DCW (Rec: 01/11/18 15:16 DCW [id number]) OP-PT Subjective Patient Comments Patient Comments Pt reports he is not doing well today, thinks it might be C2. PT-OP-D Balance Start: 12/14/17 15:21 Freq: Status: Active Protocol: Document 12/14/17 14:03 DCW (Rec: 12/14/17 15:47 DCW [id number]) Balance Tests Little Balance Test Little Balance Test Score 40/56 Little Impairment Rating 20 to 39% Impaired (Score 34- 44) Little Balance Assessment Evaluation Sitting to Standing Ability Independent w/out Hands Unsupported Stance Safely- 2 minutes Sitting Unsupported, Feet on Floor Safely- 2 minutes Standing to Sitting Ability Safely, Minimal Hand Use Transfer Ability Safely, Minimal Hand Use Unsupported Stance- Eyes Closed Supervision, 10 seconds Unsupported Stance- Eyes Open Supervision to maintain Reaching Forward Standing Safely, 5 inches Pick- Up Object From Floor Within 2 inches, Unable Look Behind Shoulder - Standing Shifts Weight Unilateral Turning 360 Degrees Turns slowly, but safely Unsupported Stance, Alternating Feet on 4 Steps w/Supervision Stair Unsupported Tandem Stance Assist to Step-15 seconds Unilateral Leg Stance Lifts Leg/Unable to Hold Total Score Little Total Score (out of 56 points) 40 Little Impairment Rating 20 to 39% Impaired (Score 34- 44) PT-OP-F Manual Assessment Start: 12/14/17 15:48 Freq: Status: Active Protocol: Document 12/14/17 14:03 DCW (Rec: 12/14/17 15:49 DCW [id number]) Manual Assessments Soft Tissue Assessment Soft Tissue Mobility Assessment Muscle Tone: Upper trap: R mild, L WNL Suboccibitals: R mild, L moderate Scalenes: R WNL, L moderate Paraspinals: R mild, L moderate PT-OP-K Range of Motion Start: 12/14/17 15:21 Freq: Status: Active Protocol: Document 12/14/17 14:03 DCW (Rec: 12/14/17 15:47 DCW [id number]) Cervical Spine Range of Motion Cervical Spine Active Degrees Testing Position Sitting Flexion 45 Extension 40 Rotation Left 38 Rotation Right 45 Lateral Flexion Left 25 Lateral Flexion Right 18 ROM Limitations Soft Tissue Tightness Bony Restriction PT-OP-O Vestibular Start: 12/14/17 15:21 Freq: Status: Active Protocol: Document 12/14/17 14:03 DCW (Rec: 12/14/17 15:47 DCW [id number]) Vestibular Assessment Screening Tests Vestibular Artery Screen Negative Auditory Tests Rivero Test Negative Rinne Test Negative Air Conduction Results Equal Visual Testing Smooth Pursuits Horizontal Negative Saccades Horizontal Potential mild hypometria Heave Test Positive Right Thrust Head Positive Right Vestibular Function Tests CTSIB Position 1 Mild Sway CTSIB Position 2 Moderate Sway CTSIB Position 3 Moderate Sway CTSIB Position 4 Moderate Sway CTSIB Position 5 Fall Reaction CTSIB Position 6 Fall Reaction PT-OP-Q Treatments Start: 12/14/17 15:21 Freq: Status: Active Protocol: Document 01/11/18 14:30 DCW (Rec: 01/11/18 15:16 DCW [id number]) Gym Equipment Shuttle Balance 1 Details Red - Wide ARMANI (Eyes open, Following target), Staggered Stance Manual Therapy Treatment Soft Tissue Mobilization 2 Body Location Suboccipitals Mobilization Type Sustained Pressure Intensity/Depth Superficial Body Position Supine 1 Body Location Upper Trap Mobilization Type Strain/Counterstrain Sustained Pressure Trigger Point Release Intensity/Depth Moderate Body Position Supine Manual Traction Cervical Body Position Supine PT-OP-T Assessment and Plan Start: 12/14/17 15:21 Freq: Status: Active Protocol: Document 01/11/18 14:30 DCW (Rec: 01/11/18 15:16 DCW [id number]) Physical Therapy Assessment Impairments Impairments Balance Coordination Vestibular Goals Five Impairment Muscle tone Short Term Goal (STG) Tone in pt's upper trap, paraspinals, suboccipitals, and scalenes shouild be at worst mild bilaterally STG Duration 01/13/18 Four Impairment Limited cervical ROM Traffic Sign Supervisor Goal (LTG) Cervical lateral flexion to 30 bilaterally Cervical rotation equal bilaterally LTG Duration 02/13/18 Three Impairment CTSIB Traffic Sign Supervisor Goal (LTG) Pt to have at worst Moderate Sway in positions II- LTG Duration 02/13/18 Two Impairment Little Balance scale [facility] Goal (LTG) Pt to score 46/56 on Little Balance scale LTG Duration 02/13/18 One Impairment Decreased dynamic balance [facility] Goal (LTG) Pt to walk from [facility] to his appointment at [facility] without needing the use of his walking stick LTG Duration 02/13/18 Assessment Summary Assessment Pt doing slightly worse today, increase dizziness, and increased cervical tone. Physical Therapy Plan Frequency and Duration Frequency of Treatment 2x/Week Duration of Treatment 10 weeks Plan of Care Start Date 12/14/17 Plan of Care End Date 02/22/18 Therapeutic Interventions Therapeutic Interventions Aquatic Therapy Balance Training Home Exercise Program Joint Mobilizations Manual Therapy Neuromuscular Re-education Patient/Caregiver Education Self-Care/Home Management Soft Tissue Mobilization Therapeutic Exercises Modalities Cold Pack/Ice Massage Hot Packs Ultrasound Next Visit Focus/Plan Next Note Type Treatment Note Next Visit Plan Cervical STM, Manual traction, Balance training
--- NOTE | 2018-01-17 16:44 | PT.OTN ---
Current Diagnoses Other abnormalities of gait and mobility (01/17/18) Physical Therapy Treatment Note PT-OP-A Visit Information Start: 12/14/17 15:21 Freq: Status: Active Protocol: Document 01/17/18 16:00 DCW (Rec: 01/17/18 16:43 DCW [id number]) Out-Patient Physical Therapy Visit Information Visit Information Visit Type Treatment Note Visit Start Time 16:00 Visit Stop Time 16:45 Total Visit Minutes 45 Visit Number 8 Number of DIVISION PLANT ENGINEER Visits 0 Evaluation Information Evaluation Date 12/14/17 PT-OP-B Current Condition Start: 12/14/17 15:21 Freq: Status: Active Protocol: Document 12/14/17 14:03 DCW (Rec: 12/14/17 15:47 DCW [id number]) Current Condition History of Current Condition Onset Date 8 months Current Complaints Pt has ongoing complaints of motion-induced imbalance History of Current Condition Pt is an 82 year-old male presenting with an eight month history of motion-induced imbalance. Pt was being treated at this clinic up until 11/30/17, after which he underwent a laparoscopic colon resection secondary to colon cancer. Pt was admitted to inpatient for four days following surgery, and then returned to [facility], where he has been living with his , who is suffering from dementia. Pt reports that his balance had be improving with his recent therapy, which had focused on both balance training and therapy for cervical hypertonia. Pt believes his balance issues are mainly caused by his cervical spine, and noticed a large improvement upon starting therapy for his cervical problems. Treatment Goals Patient/Caregiver Goals Pt's goal is to improve his balance Prior Functional Status Baseline Function- ADL's Modified Independent Baseline Function- Mobility Modified Independent Baseline Function- Gait Uses walking stick for stability Current Functional Impairments (Reported) Functional Limitations- Mobility/Gait Pt reports poor balance, requires an assistive device or a hand on a wall at all times. Pt has suffered multiple falls, the most recent being December last year (2016). PT-OP-C Subjective Start: 12/14/17 15:21 Freq: Status: Active Protocol: Document 01/17/18 16:00 DCW (Rec: 01/17/18 16:43 DCW [id number]) OP-PT Subjective Patient Comments Patient Comments Pt notes his C2 has felt pretty good since he was in last. PT-OP-D Balance Start: 12/14/17 15:21 Freq: Status: Active Protocol: Document 12/14/17 14:03 DCW (Rec: 12/14/17 15:47 DCW [id number]) Balance Tests Little Balance Test Little Balance Test Score 40/56 Little Impairment Rating 20 to 39% Impaired (Score 34- 44) Little Balance Assessment Evaluation Sitting to Standing Ability Independent w/out Hands Unsupported Stance Safely- 2 minutes Sitting Unsupported, Feet on Floor Safely- 2 minutes Standing to Sitting Ability Safely, Minimal Hand Use Transfer Ability Safely, Minimal Hand Use Unsupported Stance- Eyes Closed Supervision, 10 seconds Unsupported Stance- Eyes Open Supervision to maintain Reaching Forward Standing Safely, 5 inches Pick- Up Object From Floor Within 2 inches, Unable Look Behind Shoulder - Standing Shifts Weight Unilateral Turning 360 Degrees Turns slowly, but safely Unsupported Stance, Alternating Feet on 4 Steps w/Supervision Stair Unsupported Tandem Stance Assist to Step-15 seconds Unilateral Leg Stance Lifts Leg/Unable to Hold Total Score Little Total Score (out of 56 points) 40 Little Impairment Rating 20 to 39% Impaired (Score 34- 44) PT-OP-F Manual Assessment Start: 12/14/17 15:48 Freq: Status: Active Protocol: Document 12/14/17 14:03 DCW (Rec: 12/14/17 15:49 DCW [id number]) Manual Assessments Soft Tissue Assessment Soft Tissue Mobility Assessment Muscle Tone: Upper trap: R mild, L WNL Suboccibitals: R mild, L moderate Scalenes: R WNL, L moderate Paraspinals: R mild, L moderate PT-OP-K Range of Motion Start: 12/14/17 15:21 Freq: Status: Active Protocol: Document 12/14/17 14:03 DCW (Rec: 12/14/17 15:47 DCW [id number]) Cervical Spine Range of Motion Cervical Spine Active Degrees Testing Position Sitting Flexion 45 Extension 40 Rotation Left 38 Rotation Right 45 Lateral Flexion Left 25 Lateral Flexion Right 18 ROM Limitations Soft Tissue Tightness Bony Restriction PT-OP-O Vestibular Start: 12/14/17 15:21 Freq: Status: Active Protocol: Document 12/14/17 14:03 DCW (Rec: 12/14/17 15:47 DCW [id number]) Vestibular Assessment Screening Tests Vestibular Artery Screen Negative Auditory Tests Rivero Test Negative Rinne Test Negative Air Conduction Results Equal Visual Testing Smooth Pursuits Horizontal Negative Saccades Horizontal Potential mild hypometria Heave Test Positive Right Thrust Head Positive Right Vestibular Function Tests CTSIB Position 1 Mild Sway CTSIB Position 2 Moderate Sway CTSIB Position 3 Moderate Sway CTSIB Position 4 Moderate Sway CTSIB Position 5 Fall Reaction CTSIB Position 6 Fall Reaction PT-OP-Q Treatments Start: 12/14/17 15:21 Freq: Status: Active Protocol: Document 01/17/18 16:00 DCW (Rec: 01/17/18 16:43 NMW [id number]) Gym Equipment Shuttle Balance 1 Details Red - Wide ARMANI (Eyes open, Following target), Staggered Stance Manual Therapy Treatment Soft Tissue Mobilization 2 Body Location Suboccipitals Mobilization Type Sustained Pressure Intensity/Depth Superficial Body Position Supine 1 Body Location Upper Trap Mobilization Type Strain/Counterstrain Sustained Pressure Trigger Point Release Intensity/Depth Moderate Body Position Supine Manual Traction Cervical Body Position Supine PT-OP-T Assessment and Plan Start: 12/14/17 15:21 Freq: Status: Active Protocol: Document 01/17/18 16:00 DCW (Rec: 01/17/18 16:43 DCW [id number]) Physical Therapy Assessment Impairments Impairments Balance Coordination Vestibular Goals Five Impairment Muscle tone Short Term Goal (STG) Tone in pt's upper trap, paraspinals, suboccipitals, and scalenes shouild be at worst mild bilaterally STG Duration 01/13/18 Four Impairment Limited cervical ROM Foundation Engineer Goal (LTG) Cervical lateral flexion to 30 bilaterally Cervical rotation equal bilaterally LTG Duration 02/13/18 Three Impairment CTSIB Foundation Engineer Goal (LTG) Pt to have at worst Moderate Sway in positions II- LTG Duration 02/13/18 Two Impairment Little Balance scale Foundation Engineer Goal (LTG) Pt to score 46/56 on Little Balance scale LTG Duration 02/13/18 One Impairment Decreased dynamic balance Senior Care Goal (LTG) Pt to walk from [facility] to his appointment at [facility] without needing the use of his walking stick LTG Duration 02/13/18 Assessment Summary Assessment Pt had fewer complaints today, cervical paraspinal muscle tone greatly reduced following manual therapy. Physical Therapy Plan Frequency and Duration Frequency of Treatment 2x/Week Duration of Treatment 10 weeks Plan of Care Start Date 12/14/17 Plan of Care End Date 02/22/18 Therapeutic Interventions Therapeutic Interventions Aquatic Therapy Balance Training Home Exercise Program Joint Mobilizations Manual Therapy Neuromuscular Re-education Patient/Caregiver Education Self-Care/Home Management Soft Tissue Mobilization Therapeutic Exercises Modalities Cold Pack/Ice Massage Hot Packs Ultrasound Next Visit Focus/Plan Next Note Type Treatment Note Next Visit Plan Cervical STM, Manual traction, Balance training
--- NOTE | 2018-01-24 15:10 | PT.OTN ---
Current Diagnoses Other abnormalities of gait and mobility (01/24/18) Physical Therapy Treatment Note PT-OP-A Visit Information Start: 12/14/17 15:21 Freq: Status: Active Protocol: Document 01/24/18 14:30 DCW (Rec: 01/24/18 15:10 DCW [id number]) Out-Patient Physical Therapy Visit Information Visit Information Visit Type Treatment Note Visit Start Time 14:30 Visit Stop Time 15:15 Total Visit Minutes 45 Visit Number 9 Number of BUSINESS PROJECT ANALYST Visits 0 Evaluation Information Evaluation Date 12/14/17 PT-OP-B Current Condition Start: 12/14/17 15:21 Freq: Status: Active Protocol: Document 12/14/17 14:03 DCW (Rec: 12/14/17 15:47 DCW [id number]) Current Condition History of Current Condition Onset Date 8 months Current Complaints Pt has ongoing complaints of motion-induced imbalance History of Current Condition Pt is an 82 year-old male presenting with an eight month history of motion-induced imbalance. Pt was being treated at this clinic up until 11/30/17, after which he underwent a laparoscopic colon resection secondary to colon cancer. Pt was admitted to inpatient for four days following surgery, and then returned to [facility], where he has been living with his , who is suffering from dementia. Pt reports that his balance had be improving with his recent therapy, which had focused on both balance training and therapy for cervical hypertonia. Pt believes his balance issues are mainly caused by his cervical spine, and noticed a large improvement upon starting therapy for his cervical problems. Treatment Goals Patient/Caregiver Goals Pt's goal is to improve his balance Prior Functional Status Baseline Function- ADL's Modified Independent Baseline Function- Mobility Modified Independent Baseline Function- Gait Uses walking stick for stability Current Functional Impairments (Reported) Functional Limitations- Mobility/Gait Pt reports poor balance, requires an assistive device or a hand on a wall at all times. Pt has suffered multiple falls, the most recent being December last year (2016). PT-OP-C Subjective Start: 12/14/17 15:21 Freq: Status: Active Protocol: Document 01/24/18 14:30 DCW (Rec: 01/24/18 15:10 DCW [id number]) OP-PT Subjective Patient Comments Patient Comments Pt reports that for a few days after his last visit, everything felt great, and his gait was almost normal. Notes that yesterday, everything went to hell again, and he's not doing as well again. PT-OP-D Balance Start: 12/14/17 15:21 Freq: Status: Active Protocol: Document 12/14/17 14:03 DCW (Rec: 12/14/17 15:47 DC [id number]) Balance Tests Little Balance Test Little Balance Test Score 40/56 Little Impairment Rating 20 to 39% Impaired (Score 34- 44) Little Balance Assessment Evaluation Sitting to Standing Ability Independent w/out Hands Unsupported Stance Safely- 2 minutes Sitting Unsupported, Feet on Floor Safely- 2 minutes Standing to Sitting Ability Safely, Minimal Hand Use Transfer Ability Safely, Minimal Hand Use Unsupported Stance- Eyes Closed Supervision, 10 seconds Unsupported Stance- Eyes Open Supervision to maintain Reaching Forward Standing Safely, 5 inches Pick- Up Object From Floor Within 2 inches, Unable Look Behind Shoulder - Standing Shifts Weight Unilateral Turning 360 Degrees Turns slowly, but safely Unsupported Stance, Alternating Feet on 4 Steps w/Supervision Stair Unsupported Tandem Stance Assist to Step-15 seconds Unilateral Leg Stance Lifts Leg/Unable to Hold Total Score Little Total Score (out of 56 points) 40 Little Impairment Rating 20 to 39% Impaired (Score 34- 44) PT-OP-F Manual Assessment Start: 12/14/17 15:48 Freq: Status: Active Protocol: Document 12/14/17 14:03 DCW (Rec: 12/14/17 15:49 DC [id number]) Manual Assessments Soft Tissue Assessment Soft Tissue Mobility Assessment Muscle Tone: Upper trap: R mild, L WNL Suboccibitals: R mild, L moderate Scalenes: R WNL, L moderate Paraspinals: R mild, L moderate PT-OP-K Range of Motion Start: 12/14/17 15:21 Freq: Status: Active Protocol: Document 12/14/17 14:03 DCW (Rec: 12/14/17 15:47 [facility] [id number]) Cervical Spine Range of Motion Cervical Spine Active Degrees Testing Position Sitting Flexion 45 Extension 40 Rotation Left 38 Rotation Right 45 Lateral Flexion Left 25 Lateral Flexion Right 18 ROM Limitations Soft Tissue Tightness Bony Restriction PT-OP-O Vestibular Start: 12/14/17 15:21 Freq: Status: Active Protocol: Document 12/14/17 14:03 DCW (Rec: 12/14/17 15:47 DCW [id number]) Vestibular Assessment Screening Tests Vestibular Artery Screen Negative Auditory Tests Rivero Test Negative Rinne Test Negative Air Conduction Results Equal Visual Testing Smooth Pursuits Horizontal Negative Saccades Horizontal Potential mild hypometria Heave Test Positive Right Thrust Head Positive Right Vestibular Function Tests CTSIB Position 1 Mild Sway CTSIB Position 2 Moderate Sway CTSIB Position 3 Moderate Sway CTSIB Position 4 Moderate Sway CTSIB Position 5 Fall Reaction CTSIB Position 6 Fall Reaction PT-OP-Q Treatments Start: 12/14/17 15:21 Freq: Status: Active Protocol: Document 01/24/18 14:30 DCW (Rec: 01/24/18 15:10 DCW [id number]) Gym Equipment Shuttle Balance 1 Details Red - Wide ARMANI (Eyes open, Following target), Staggered Stance Manual Therapy Treatment Soft Tissue Mobilization 2 Body Location Suboccipitals Mobilization Type Sustained Pressure Intensity/Depth Superficial Body Position Supine 1 Body Location Upper Trap Mobilization Type Strain/Counterstrain Sustained Pressure Trigger Point Release Intensity/Depth Moderate Body Position Supine Manual Traction Cervical Body Position Supine PT-OP-T Assessment and Plan Start: 12/14/17 15:21 Freq: Status: Active Protocol: Document 01/24/18 14:30 DCW (Rec: 01/24/18 15:10 DCW [id number]) Physical Therapy Assessment Impairments Impairments Balance Coordination Vestibular Goals Five Impairment Muscle tone Short Term Goal (STG) Tone in pt's upper trap, paraspinals, suboccipitals, and scalenes shouild be at worst mild bilaterally STG Duration 01/13/18 Four Impairment Limited cervical ROM Jail Goal (LTG) Cervical lateral flexion to 30 bilaterally Cervical rotation equal bilaterally LTG Duration 02/13/18 Three Impairment CTSIB Sales Project Engineer Goal (LTG) Pt to have at worst Moderate Sway in positions II- LTG Duration 02/13/18 Two Impairment Little Balance scale Jail Goal (LTG) Pt to score 46/56 on Little Balance scale LTG Duration 02/13/18 One Impairment Decreased dynamic balance Jail Goal (LTG) Pt to walk [facility] to his appointment at [facility] without needing the use of his walking stick LTG Duration 02/13/18 Assessment Summary Assessment Pt did very well today, decreased muscle tone and improved balance while on Shuttle Balance. Physical Therapy Plan Frequency and Duration Frequency of Treatment 2x/Week Duration of Treatment 10 weeks Plan of Care Start Date 12/14/17 Plan of Care End Date 02/22/18 Therapeutic Interventions Therapeutic Interventions Aquatic Therapy Balance Training Home Exercise Program Joint Mobilizations Manual Therapy Neuromuscular Re-education Patient/Caregiver Education Self-Care/Home Management Soft Tissue Mobilization Therapeutic Exercises Modalities Cold Pack/Ice Massage Hot Packs Ultrasound Next Visit Focus/Plan Next Note Type Treatment Note Next Visit Plan Cervical STM, Manual traction, Balance training
--- NOTE | 2018-01-30 11:36 | PT.OTN ---
Current Diagnoses Other abnormalities of gait and mobility (01/30/18) Physical Therapy Treatment Note PT-OP-A Visit Information Start: 12/14/17 15:21 Freq: Status: Active Protocol: Document 01/30/18 10:00 DCW (Rec: 01/30/18 11:36 DCW [id number]) Out-Patient Physical Therapy Visit Information Visit Information Visit Type Treatment Note Visit Note Pt arrived 15 minutes late Visit Start Time 10:00 Visit Stop Time 10:30 Total Visit Minutes 30 Visit Number 10 Number of BRANCH SERVICE SPECIALIST Visits 0 Evaluation Information Evaluation Date 12/14/17 PT-OP-B Current Condition Start: 12/14/17 15:21 Freq: Status: Active Protocol: Document 12/14/17 14:03 DCW (Rec: 12/14/17 15:47 DCW [id number]) Current Condition History of Current Condition Onset Date 8 months Current Complaints Pt has ongoing complaints of motion-induced imbalance History of Current Condition Pt is an 82 year-old male presenting with an eight month history of motion-induced imbalance. Pt was being treated at this clinic up until 11/30/17, after which he underwent a laparoscopic colon resection secondary to colon cancer. Pt was admitted to inpatient for four days following surgery, and then returned to [facility], where he has been living with his , who is suffering from dementia. Pt reports that his balance had be improving with his recent therapy, which had focused on both balance training and therapy for cervical hypertonia. Pt believes his balance issues are mainly caused by his cervical spine, and noticed a large improvement upon starting therapy for his cervical problems. Treatment Goals Patient/Caregiver Goals Pt's goal is to improve his balance Prior Functional Status Baseline Function- ADL's Modified Independent Baseline Function- Mobility Modified Independent Baseline Function- Gait Uses walking stick for stability Current Functional Impairments (Reported) Functional Limitations- Mobility/Gait Pt reports poor balance, requires an assistive device or a hand on a wall at all times. Pt has suffered multiple falls, the most recent being December last year (2016). PT-OP-C Subjective Start: 12/14/17 15:21 Freq: Status: Active Protocol: Document 01/30/18 10:00 DCW (Rec: 01/30/18 11:36 DCW [id number]) OP-PT Subjective Patient Comments Patient Comments Pt reports that he has had a rough past few days, but is a little better today. PT-OP-D Balance Start: 12/14/17 15:21 Freq: Status: Active Protocol: Document 12/14/17 14:03 DCW (Rec: 12/14/17 15:47 DC [id number]) Balance Tests Little Balance Test Little Balance Test Score 40/56 Little Impairment Rating 20 to 39% Impaired (Score 34- 44) Little Balance Assessment Evaluation Sitting to Standing Ability Independent w/out Hands Unsupported Stance Safely- 2 minutes Sitting Unsupported, Feet on Floor Safely- 2 minutes Standing to Sitting Ability Safely, Minimal Hand Use Transfer Ability Safely, Minimal Hand Use Unsupported Stance- Eyes Closed Supervision, 10 seconds Unsupported Stance- Eyes Open Supervision to maintain Reaching Forward Standing Safely, 5 inches Pick- Up Object From Floor Within 2 inches, Unable Look Behind Shoulder - Standing Shifts Weight Unilateral Turning 360 Degrees Turns slowly, but safely Unsupported Stance, Alternating Feet on 4 Steps w/Supervision Stair Unsupported Tandem Stance Assist to Step-15 seconds Unilateral Leg Stance Lifts Leg/Unable to Hold Total Score Little Total Score (out of 56 points) 40 Little Impairment Rating 20 to 39% Impaired (Score 34- 44) PT-OP-F Manual Assessment Start: 12/14/17 15:48 Freq: Status: Active Protocol: Document 12/14/17 14:03 DCW (Rec: 12/14/17 15:49 DCW [id number]) Manual Assessments Soft Tissue Assessment Soft Tissue Mobility Assessment Muscle Tone: Upper trap: R mild, L WNL Suboccibitals: R mild, L moderate Scalenes: R WNL, L moderate Paraspinals: R mild, L moderate PT-OP-K Range of Motion Start: 12/14/17 15:21 Freq: Status: Active Protocol: Document 12/14/17 14:03 DCW (Rec: 12/14/17 15:47 DCW [id number]) Cervical Spine Range of Motion Cervical Spine Active Degrees Testing Position Sitting Flexion 45 Extension 40 Rotation Left 38 Rotation Right 45 Lateral Flexion Left 25 Lateral Flexion Right 18 ROM Limitations Soft Tissue Tightness Bony Restriction PT-OP-O Vestibular Start: 12/14/17 15:21 Freq: Status: Active Protocol: Document 12/14/17 14:03 DCW (Rec: 12/14/17 15:47 DCW [id number]) Vestibular Assessment Screening Tests Vestibular Artery Screen Negative Auditory Tests Rivero Test Negative Rinne Test Negative Air Conduction Results Equal Visual Testing Smooth Pursuits Horizontal Negative Saccades Horizontal Potential mild hypometria Heave Test Positive Right Thrust Head Positive Right Vestibular Function Tests CTSIB Position 1 Mild Sway CTSIB Position 2 Moderate Sway CTSIB Position 3 Moderate Sway CTSIB Position 4 Moderate Sway CTSIB Position 5 Fall Reaction CTSIB Position 6 Fall Reaction PT-OP-Q Treatments Start: 12/14/17 15:21 Freq: Status: Active Protocol: Document 01/30/18 10:00 DCW (Rec: 01/30/18 11:36 GAW [id number]) Manual Therapy Treatment Soft Tissue Mobilization 2 Body Location Suboccipitals Mobilization Type Sustained Pressure Intensity/Depth Superficial Body Position Supine 1 Body Location Upper Trap Mobilization Type Strain/Counterstrain Sustained Pressure Trigger Point Release Intensity/Depth Moderate Body Position Supine Manual Traction Cervical Body Position Supine PT-OP-T Assessment and Plan Start: 12/14/17 15:21 Freq: Status: Active Protocol: Document 01/30/18 10:00 DCW (Rec: 01/30/18 11:36 DCW [id number]) Physical Therapy Assessment Impairments Impairments Balance Coordination Vestibular Goals Five Impairment Muscle tone Short Term Goal (STG) Tone in pt's upper trap, paraspinals, suboccipitals, and scalenes shouild be at worst mild bilaterally STG Duration 01/13/18 Four Impairment Limited cervical ROM Residential Goal (LTG) Cervical lateral flexion to 30 bilaterally Cervical rotation equal bilaterally LTG Duration 02/13/18 Three Impairment CTSIB Fuel Pilot Engineer Goal (LTG) Pt to have at worst Moderate Sway in positions II- LTG Duration 02/13/18 Two Impairment Little Balance scale Residential Goal (LTG) Pt to score 46/56 on Little Balance scale LTG Duration 02/13/18 One Impairment Decreased dynamic balance Residential Goal (LTG) Pt to walk from [facility] to his appointment at [facility] without needing the use of his walking stick LTG Duration 02/13/18 Assessment Summary Assessment Pt obviously more unstable today, slower gate speed and mild path deviation. Physical Therapy Plan Frequency and Duration Frequency of Treatment 2x/Week Duration of Treatment 10 weeks Plan of Care Start Date 12/14/17 Plan of Care End Date 02/22/18 Therapeutic Interventions Therapeutic Interventions Aquatic Therapy Balance Training Home Exercise Program Joint Mobilizations Manual Therapy Neuromuscular Re-education Patient/Caregiver Education Self-Care/Home Management Soft Tissue Mobilization Therapeutic Exercises Modalities Cold Pack/Ice Massage Hot Packs Ultrasound Next Visit Focus/Plan Next Note Type Treatment Note Next Visit Plan Cervical STM, Manual traction, Balance training
--- NOTE | 2018-02-01 11:13 | PT.OTN ---
Current Diagnoses Other abnormalities of gait and mobility (02/01/18) Physical Therapy Treatment Note PT-OP-A Visit Information Start: 12/14/17 15:21 Freq: Status: Active Protocol: Document 02/01/18 10:35 DCW (Rec: 02/01/18 11:12 DCW [id number]) Out-Patient Physical Therapy Visit Information Visit Information Visit Type Treatment Note Visit Note Pt arrived 5 minutes late Visit Start Time 10:35 Visit Stop Time 11:15 Total Visit Minutes 40 Visit Number 11 Number of FAMILY COACH Visits 0 Evaluation Information Evaluation Date 12/14/17 PT-OP-B Current Condition Start: 12/14/17 15:21 Freq: Status: Active Protocol: Document 12/14/17 14:03 DCW (Rec: 12/14/17 15:47 DCW [id number]) Current Condition History of Current Condition Onset Date 8 months Current Complaints Pt has ongoing complaints of motion-induced imbalance History of Current Condition Pt is an 82 year-old male presenting with an eight month history of motion-induced imbalance. Pt was being treated at this clinic up until 11/30/17, after which he underwent a laparoscopic colon resection secondary to colon cancer. Pt was admitted to inpatient for four days following surgery, and then returned to [facility], where he has been living with his , who is suffering from dementia. Pt reports that his balance had be improving with his recent therapy, which had focused on both balance training and therapy for cervical hypertonia. Pt believes his balance issues are mainly caused by his cervical spine, and noticed a large improvement upon starting therapy for his cervical problems. Treatment Goals Patient/Caregiver Goals Pt's goal is to improve his balance Prior Functional Status Baseline Function- ADL's Modified Independent Baseline Function- Mobility Modified Independent Baseline Function- Gait Uses walking stick for stability Current Functional Impairments (Reported) Functional Limitations- Mobility/Gait Pt reports poor balance, requires an assistive device or a hand on a wall at all times. Pt has suffered multiple falls, the most recent being December last year (2016). PT-OP-C Subjective Start: 12/14/17 15:21 Freq: Status: Active Protocol: Document 02/01/18 10:35 DCW (Rec: 02/01/18 11:12 DCW [id number]) OP-PT Subjective Patient Comments Patient Comments Pt notes that everthng is pretty much the same, nothing ever really changes. PT-OP-D Balance Start: 12/14/17 15:21 Freq: Status: Active Protocol: Document 12/14/17 14:03 DCW (Rec: 12/14/17 15:47 DCW [id number]) Balance Tests Little Balance Test Little Balance Test Score 40/56 Little Impairment Rating 20 to 39% Impaired (Score 34- 44) Little Balance Assessment Evaluation Sitting to Standing Ability Independent w/out Hands Unsupported Stance Safely- 2 minutes Sitting Unsupported, Feet on Floor Safely- 2 minutes Standing to Sitting Ability Safely, Minimal Hand Use Transfer Ability Safely, Minimal Hand Use Unsupported Stance- Eyes Closed Supervision, 10 seconds Unsupported Stance- Eyes Open Supervision to maintain Reaching Forward Standing Safely, 5 inches Pick- Up Object From Floor Within 2 inches, Unable Look Behind Shoulder - Standing Shifts Weight Unilateral Turning 360 Degrees Turns slowly, but safely Unsupported Stance, Alternating Feet on 4 Steps w/Supervision Stair Unsupported Tandem Stance Assist to Step-15 seconds Unilateral Leg Stance Lifts Leg/Unable to Hold Total Score Little Total Score (out of 56 points) 40 Little Impairment Rating 20 to 39% Impaired (Score 34- 44) PT-OP-F Manual Assessment Start: 12/14/17 15:48 Freq: Status: Active Protocol: Document 12/14/17 14:03 DCW (Rec: 12/14/17 15:49 DCW [id number]) Manual Assessments Soft Tissue Assessment Soft Tissue Mobility Assessment Muscle Tone: Upper trap: R mild, L WNL Suboccibitals: R mild, L moderate Scalenes: R WNL, L moderate Paraspinals: R mild, L moderate PT-OP-K Range of Motion Start: 12/14/17 15:21 Freq: Status: Active Protocol: Document 12/14/17 14:03 DCW (Rec: 12/14/17 15:47 DCW [id number]) Cervical Spine Range of Motion Cervical Spine Active Degrees Testing Position Sitting Flexion 45 Extension 40 Rotation Left 38 Rotation Right 45 Lateral Flexion Left 25 Lateral Flexion Right 18 ROM Limitations Soft Tissue Tightness Bony Restriction PT-OP-O Vestibular Start: 12/14/17 15:21 Freq: Status: Active Protocol: Document 12/14/17 14:03 DCW (Rec: 12/14/17 15:47 DCW [id number]) Vestibular Assessment Screening Tests Vestibular Artery Screen Negative Auditory Tests Rivero Test Negative Rinne Test Negative Air Conduction Results Equal Visual Testing Smooth Pursuits Horizontal Negative Saccades Horizontal Potential mild hypometria Heave Test Positive Right Thrust Head Positive Right Vestibular Function Tests CTSIB Position 1 Mild Sway CTSIB Position 2 Moderate Sway CTSIB Position 3 Moderate Sway CTSIB Position 4 Moderate Sway CTSIB Position 5 Fall Reaction CTSIB Position 6 Fall Reaction PT-OP-Q Treatments Start: 12/14/17 15:21 Freq: Status: Active Protocol: Document 02/01/18 10:35 DCW (Rec: 02/01/18 11:12 DCW [id number]) Manual Therapy Treatment Soft Tissue Mobilization 2 Body Location Suboccipitals Mobilization Type Sustained Pressure Intensity/Depth Superficial Body Position Supine 1 Body Location Upper Trap Mobilization Type Strain/Counterstrain Sustained Pressure Trigger Point Release Intensity/Depth Moderate Body Position Supine Manual Traction Cervical Body Position Supine PT-OP-T Assessment and Plan Start: 12/14/17 15:21 Freq: Status: Active Protocol: Document 02/01/18 10:35 DCW (Rec: 02/01/18 11:12 DCW [id number]) Physical Therapy Assessment Impairments Impairments Balance Coordination Vestibular Goals Five Impairment Muscle tone Short Term Goal (STG) Tone in pt's upper trap, paraspinals, suboccipitals, and scalenes shouild be at worst mild bilaterally STG Duration 01/13/18 Four Impairment Limited cervical ROM Fpc Goal (LTG) Cervical lateral flexion to 30 bilaterally Cervical rotation equal bilaterally LTG Duration 02/13/18 Three Impairment CTSIB Fpc Goal (LTG) Pt to have at worst Moderate Sway in positions II- LTG Duration 02/13/18 Two Impairment Little Balance scale Fpc Goal (LTG) Pt to score 46/56 on Little Balance scale LTG Duration 02/13/18 One Impairment Decreased dynamic balance Liability Claims Representative Goal (LTG) Pt to walk from [facility] to his appointment at [facility] without needing the use of his walking stick LTG Duration 02/13/18 Assessment Summary Assessment Despite pt reporting that nothing ever changes, he also admits that he always feels better for a few days following his PT sessions. Physical Therapy Plan Frequency and Duration Frequency of Treatment 2x/Week Duration of Treatment 10 weeks Plan of Care Start Date 12/14/17 Plan of Care End Date 02/22/18 Therapeutic Interventions Therapeutic Interventions Aquatic Therapy Balance Training Home Exercise Program Joint Mobilizations Manual Therapy Neuromuscular Re-education Patient/Caregiver Education Self-Care/Home Management Soft Tissue Mobilization Therapeutic Exercises Modalities Cold Pack/Ice Massage Hot Packs Ultrasound Next Visit Focus/Plan Next Note Type Treatment Note Next Visit Plan Cervical STM, Manual traction, Balance training
--- NOTE | 2018-02-14 14:26 | PT.OTN ---
Current Diagnoses Other abnormalities of gait and mobility (02/14/18) Physical Therapy Treatment Note PT-OP-A Visit Information Start: 12/14/17 15:21 Freq: Status: Active Protocol: Document 02/14/18 13:45 DCW (Rec: 02/14/18 14:26 DCW [id number]) Out-Patient Physical Therapy Visit Information Visit Information Visit Type Treatment Note Visit Start Time 13:45 Visit Stop Time 14:30 Total Visit Minutes 45 Visit Number 12 Number of FLAKE MILLER HELPER Visits 0 Evaluation Information Evaluation Date 12/14/17 PT-OP-B Current Condition Start: 12/14/17 15:21 Freq: Status: Active Protocol: Document 12/14/17 14:03 DCW (Rec: 12/14/17 15:47 DCW [id number]) Current Condition History of Current Condition Onset Date 8 months Current Complaints Pt has ongoing complaints of motion-induced imbalance History of Current Condition Pt is an 82 year-old male presenting with an eight month history of motion-induced imbalance. Pt was being treated at this clinic up until 11/30/17, after which he underwent a laparoscopic colon resection secondary to colon cancer. Pt was admitted to inpatient for four days following surgery, and then returned to [facility], where he has been living with his , who is suffering from dementia. Pt reports that his balance had be improving with his recent therapy, which had focused on both balance training and therapy for cervical hypertonia. Pt believes his balance issues are mainly caused by his cervical spine, and noticed a large improvement upon starting therapy for his cervical problems. Treatment Goals Patient/Caregiver Goals Pt's goal is to improve his balance Prior Functional Status Baseline Function- ADL's Modified Independent Baseline Function- Mobility Modified Independent Baseline Function- Gait Uses walking stick for stability Current Functional Impairments (Reported) Functional Limitations- Mobility/Gait Pt reports poor balance, requires an assistive device or a hand on a wall at all times. Pt has suffered multiple falls, the most recent being December last year (2016). PT-OP-C Subjective Start: 12/14/17 15:21 Freq: Status: Active Protocol: Document 02/14/18 13:45 DCW (Rec: 02/14/18 14:26 DCW [id number]) OP-PT Subjective Patient Comments Patient Comments Pt reports that he had noticed some increased tone in his right neck, but it is better now, so there's nothing else to report. PT-OP-D Balance Start: 12/14/17 15:21 Freq: Status: Active Protocol: Document 12/14/17 14:03 DCW (Rec: 12/14/17 15:47 DC [id number]) Balance Tests Little Balance Test Little Balance Test Score 40/56 Little Impairment Rating 20 to 39% Impaired (Score 34- 44) Little Balance Assessment Evaluation Sitting to Standing Ability Independent w/out Hands Unsupported Stance Safely- 2 minutes Sitting Unsupported, Feet on Floor Safely- 2 minutes Standing to Sitting Ability Safely, Minimal Hand Use Transfer Ability Safely, Minimal Hand Use Unsupported Stance- Eyes Closed Supervision, 10 seconds Unsupported Stance- Eyes Open Supervision to maintain Reaching Forward Standing Safely, 5 inches Pick- Up Object From Floor Within 2 inches, Unable Look Behind Shoulder - Standing Shifts Weight Unilateral Turning 360 Degrees Turns slowly, but safely Unsupported Stance, Alternating Feet on 4 Steps w/Supervision Stair Unsupported Tandem Stance Assist to Step-15 seconds Unilateral Leg Stance Lifts Leg/Unable to Hold Total Score Little Total Score (out of 56 points) 40 Little Impairment Rating 20 to 39% Impaired (Score 34- 44) PT-OP-F Manual Assessment Start: 12/14/17 15:48 Freq: Status: Active Protocol: Document 12/14/17 14:03 DCW (Rec: 12/14/17 15:49 DCW [id number]) Manual Assessments Soft Tissue Assessment Soft Tissue Mobility Assessment Muscle Tone: Upper trap: R mild, L WNL Suboccibitals: R mild, L moderate Scalenes: R WNL, L moderate Paraspinals: R mild, L moderate PT-OP-K Range of Motion Start: 12/14/17 15:21 Freq: Status: Active Protocol: Document 12/14/17 14:03 DCW (Rec: 12/14/17 15:47 DCW [id number]) Cervical Spine Range of Motion Cervical Spine Active Degrees Testing Position Sitting Flexion 45 Extension 40 Rotation Left 38 Rotation Right 45 Lateral Flexion Left 25 Lateral Flexion Right 18 ROM Limitations Soft Tissue Tightness Bony Restriction PT-OP-O Vestibular Start: 12/14/17 15:21 Freq: Status: Active Protocol: Document 12/14/17 14:03 DCW (Rec: 12/14/17 15:47 DCW [id number]) Vestibular Assessment Screening Tests Vestibular Artery Screen Negative Auditory Tests Rivero Test Negative Rinne Test Negative Air Conduction Results Equal Visual Testing Smooth Pursuits Horizontal Negative Saccades Horizontal Potential mild hypometria Heave Test Positive Right Thrust Head Positive Right Vestibular Function Tests CTSIB Position 1 Mild Sway CTSIB Position 2 Moderate Sway CTSIB Position 3 Moderate Sway CTSIB Position 4 Moderate Sway CTSIB Position 5 Fall Reaction CTSIB Position 6 Fall Reaction PT-OP-Q Treatments Start: 12/14/17 15:21 Freq: Status: Active Protocol: Document 02/14/18 13:45 DCW (Rec: 02/14/18 14:26 DCW [id number]) Gym Equipment Shuttle Balance 1 Details Red Comments Wide RAMANI (Eyes open/closed, head turns), Staggered Stance Manual Therapy Treatment Soft Tissue Mobilization 2 Body Location Suboccipitals Mobilization Type Sustained Pressure Intensity/Depth Superficial Body Position Supine 1 Body Location Upper Trap Mobilization Type Strain/Counterstrain Sustained Pressure Trigger Point Release Intensity/Depth Moderate Body Position Supine Manual Traction Cervical Body Position Supine Neuro Re-Education Treatment Balance Activities 10 Details Narrow ARMANI Comments Head turns, Eyes closed PT-OP-T Assessment and Plan Start: 12/14/17 15:21 Freq: Status: Active Protocol: Document 02/14/18 13:45 DCW (Rec: 02/14/18 14:26 DCW [id number]) Physical Therapy Assessment Impairments Impairments Balance Coordination Vestibular Goals Five Impairment Muscle tone Short Term Goal (STG) Tone in pt's upper trap, paraspinals, suboccipitals, and scalenes shouild be at worst mild bilaterally STG Duration 01/13/18 Four Impairment Limited cervical ROM [facility] Goal (LTG) Cervical lateral flexion to 30 bilaterally Cervical rotation equal bilaterally LTG Duration 02/13/18 Three Impairment CTSIB Web Art Director Goal (LTG) Pt to have at worst Moderate Sway in positions II- LTG Duration 02/13/18 Two Impairment Little Balance scale [facility] Goal (LTG) Pt to score 46/56 on Little Balance scale LTG Duration 02/13/18 One Impairment Decreased dynamic balance [facility] Goal (LTG) Pt to walk from [facility] to his appointment at [facility] without needing the use of his walking stick LTG Duration 02/13/18 Assessment Summary Assessment Pt cervical tone decreased compared to his normal, displayed improved static balance and cervical ROM Physical Therapy Plan Frequency and Duration Frequency of Treatment 2x/Week Duration of Treatment 10 weeks Plan of Care Start Date 12/14/17 Plan of Care End Date 02/22/18 Therapeutic Interventions Therapeutic Interventions Aquatic Therapy Balance Training Home Exercise Program Joint Mobilizations Manual Therapy Neuromuscular Re-education Patient/Caregiver Education Self-Care/Home Management Soft Tissue Mobilization Therapeutic Exercises Modalities Cold Pack/Ice Massage Hot Packs Ultrasound Next Visit Focus/Plan Next Note Type Treatment Note Next Visit Plan Cervical STM, Manual traction, Balance training
--- NOTE | 2018-02-16 14:22 | PT.OTN ---
Current Diagnoses Other abnormalities of gait and mobility (02/16/18) Physical Therapy Treatment Note PT-OP-A Visit Information Start: 12/14/17 15:21 Freq: Status: Active Protocol: Document 02/16/18 13:45 DCW (Rec: 02/16/18 14:22 DCW [id number]) Out-Patient Physical Therapy Visit Information Visit Information Visit Type Treatment Note Visit Start Time 13:45 Visit Stop Time 14:30 Total Visit Minutes 45 Visit Number 13 Number of STEAM CLEANER Visits 0 Evaluation Information Evaluation Date 12/14/17 PT-OP-B Current Condition Start: 12/14/17 15:21 Freq: Status: Active Protocol: Document 12/14/17 14:03 DCW (Rec: 12/14/17 15:47 DCW [id number]) Current Condition History of Current Condition Onset Date 8 months Current Complaints Pt has ongoing complaints of motion-induced imbalance History of Current Condition Pt is an 82 year-old male presenting with an eight month history of motion-induced imbalance. Pt was being treated at this clinic up until 11/30/17, after which he underwent a laparoscopic colon resection secondary to colon cancer. Pt was admitted to inpatient for four days following surgery, and then returned to [facility], where he has been living with his , who is suffering from dementia. Pt reports that his balance had be improving with his recent therapy, which had focused on both balance training and therapy for cervical hypertonia. Pt believes his balance issues are mainly caused by his cervical spine, and noticed a large improvement upon starting therapy for his cervical problems. Treatment Goals Patient/Caregiver Goals Pt's goal is to improve his balance Prior Functional Status Baseline Function- ADL's Modified Independent Baseline Function- Mobility Modified Independent Baseline Function- Gait Uses walking stick for stability Current Functional Impairments (Reported) Functional Limitations- Mobility/Gait Pt reports poor balance, requires an assistive device or a hand on a wall at all times. Pt has suffered multiple falls, the most recent being December last year (2016). PT-OP-C Subjective Start: 12/14/17 15:21 Freq: Status: Active Protocol: Document 02/16/18 13:45 DCW (Rec: 02/16/18 14:22 DCW [id number]) OP-PT Subjective Patient Comments Patient Comments Overall, I think I'm a little bit better. PT-OP-D Balance Start: 12/14/17 15:21 Freq: Status: Active Protocol: Document 12/14/17 14:03 DCW (Rec: 12/14/17 15:47 DCW [id number]) Balance Tests Little Balance Test Little Balance Test Score 40/56 Little Impairment Rating 20 to 39% Impaired (Score 34- 44) Little Balance Assessment Evaluation Sitting to Standing Ability Independent w/out Hands Unsupported Stance Safely- 2 minutes Sitting Unsupported, Feet on Floor Safely- 2 minutes Standing to Sitting Ability Safely, Minimal Hand Use Transfer Ability Safely, Minimal Hand Use Unsupported Stance- Eyes Closed Supervision, 10 seconds Unsupported Stance- Eyes Open Supervision to maintain Reaching Forward Standing Safely, 5 inches Pick- Up Object From Floor Within 2 inches, Unable Look Behind Shoulder - Standing Shifts Weight Unilateral Turning 360 Degrees Turns slowly, but safely Unsupported Stance, Alternating Feet on 4 Steps w/Supervision Stair Unsupported Tandem Stance Assist to Step-15 seconds Unilateral Leg Stance Lifts Leg/Unable to Hold Total Score Little Total Score (out of 56 points) 40 Little Impairment Rating 20 to 39% Impaired (Score 34- 44) PT-OP-F Manual Assessment Start: 12/14/17 15:48 Freq: Status: Active Protocol: Document 12/14/17 14:03 DCW (Rec: 12/14/17 15:49 DCW [id number]) Manual Assessments Soft Tissue Assessment Soft Tissue Mobility Assessment Muscle Tone: Upper trap: R mild, L WNL Suboccibitals: R mild, L moderate Scalenes: R WNL, L moderate Paraspinals: R mild, L moderate PT-OP-K Range of Motion Start: 12/14/17 15:21 Freq: Status: Active Protocol: Document 12/14/17 14:03 DCW (Rec: 12/14/17 15:47 DCW [id number]) Cervical Spine Range of Motion Cervical Spine Active Degrees Testing Position Sitting Flexion 45 Extension 40 Rotation Left 38 Rotation Right 45 Lateral Flexion Left 25 Lateral Flexion Right 18 ROM Limitations Soft Tissue Tightness Bony Restriction PT-OP-O Vestibular Start: 12/14/17 15:21 Freq: Status: Active Protocol: Document 12/14/17 14:03 DCW (Rec: 12/14/17 15:47 DCW [id number]) Vestibular Assessment Screening Tests Vestibular Artery Screen Negative Auditory Tests Rivero Test Negative Rinne Test Negative Air Conduction Results Equal Visual Testing Smooth Pursuits Horizontal Negative Saccades Horizontal Potential mild hypometria Heave Test Positive Right Thrust Head Positive Right Vestibular Function Tests CTSIB Position 1 Mild Sway CTSIB Position 2 Moderate Sway CTSIB Position 3 Moderate Sway CTSIB Position 4 Moderate Sway CTSIB Position 5 Fall Reaction CTSIB Position 6 Fall Reaction PT-OP-Q Treatments Start: 12/14/17 15:21 Freq: Status: Active Protocol: Document 02/16/18 13:45 DCW (Rec: 02/16/18 14:22 DCW [id number]) Manual Therapy Treatment Soft Tissue Mobilization 2 Body Location Suboccipitals Mobilization Type Sustained Pressure Intensity/Depth Superficial Body Position Supine 1 Body Location Upper Trap Mobilization Type Strain/Counterstrain Sustained Pressure Trigger Point Release Intensity/Depth Moderate Body Position Supine Manual Traction Cervical Body Position Supine PT-OP-T Assessment and Plan Start: 12/14/17 15:21 Freq: Status: Active Protocol: Document 02/16/18 13:45 DCW (Rec: 02/16/18 14:22 DCW [id number]) Physical Therapy Assessment Impairments Impairments Balance Coordination Vestibular Goals Five Impairment Muscle tone Short Term Goal (STG) Tone in pt's upper trap, paraspinals, suboccipitals, and scalenes shouild be at worst mild bilaterally STG Duration 01/13/18 Four Impairment Limited cervical ROM Radiology Teacher Goal (LTG) Cervical lateral flexion to 30 bilaterally Cervical rotation equal bilaterally LTG Duration 02/13/18 Three Impairment CTSIB Penitentiary Goal (LTG) Pt to have at worst Moderate Sway in positions II- LTG Duration 02/13/18 Two Impairment Little Balance scale Penitentiary Goal (LTG) Pt to score 46/56 on Little Balance scale LTG Duration 02/13/18 One Impairment Decreased dynamic balance Penitentiary Goal (LTG) Pt to walk from [facility] to his appointment at [facility] without needing the use of his walking stick LTG Duration 02/13/18 Assessment Summary Assessment Pt cervical tone again improved today, able to tolerate manual therapy on deeoer musculature. Physical Therapy Plan Frequency and Duration Frequency of Treatment 2x/Week Duration of Treatment 10 weeks Plan of Care Start Date 12/14/17 Plan of Care End Date 02/22/18 Therapeutic Interventions Therapeutic Interventions Aquatic Therapy Balance Training Home Exercise Program Joint Mobilizations Manual Therapy Neuromuscular Re-education Patient/Caregiver Education Self-Care/Home Management Soft Tissue Mobilization Therapeutic Exercises Modalities Cold Pack/Ice Massage Hot Packs Ultrasound Next Visit Focus/Plan Next Note Type Treatment Note Next Visit Plan Cervical STM, Manual traction, Balance training
--- NOTE | 2018-02-20 14:05 | PT.OTN ---
Current Diagnoses Other abnormalities of gait and mobility (02/20/18) Physical Therapy Treatment Note PT-OP-A Visit Information Start: 12/14/17 15:21 Freq: Status: Active Protocol: Document 02/20/18 11:15 DCW (Rec: 02/20/18 14:05 DC [id number]) Out-Patient Physical Therapy Visit Information Visit Information Visit Type Treatment Note Visit Start Time 11:15 Visit Stop Time 12:00 Total Visit Minutes 45 Visit Number 14 Number of DANCE ENTERTAINER Visits 0 Evaluation Information Evaluation Date 12/14/17 PT-OP-B Current Condition Start: 12/14/17 15:21 Freq: Status: Active Protocol: Document 12/14/17 14:03 DCW (Rec: 12/14/17 15:47 DCW [id number]) Current Condition History of Current Condition Onset Date 8 months Current Complaints Pt has ongoing complaints of motion-induced imbalance History of Current Condition Pt is an 82 year-old male presenting with an eight month history of motion-induced imbalance. Pt was being treated at this clinic up until 11/30/17, after which he underwent a laparoscopic colon resection secondary to colon cancer. Pt was admitted to inpatient for four days following surgery, and then returned to [facility], where he has been living with his , who is suffering from dementia. Pt reports that his balance had be improving with his recent therapy, which had focused on both balance training and therapy for cervical hypertonia. Pt believes his balance issues are mainly caused by his cervical spine, and noticed a large improvement upon starting therapy for his cervical problems. Treatment Goals Patient/Caregiver Goals Pt's goal is to improve his balance Prior Functional Status Baseline Function- ADL's Modified Independent Baseline Function- Mobility Modified Independent Baseline Function- Gait Uses walking stick for stability Current Functional Impairments (Reported) Functional Limitations- Mobility/Gait Pt reports poor balance, requires an assistive device or a hand on a wall at all times. Pt has suffered multiple falls, the most recent being December last year (2016). PT-OP-C Subjective Start: 12/14/17 15:21 Freq: Status: Active Protocol: Document 02/20/18 11:15 DCW (Rec: 02/20/18 14:05 DCW [id number]) OP-PT Subjective Patient Comments Patient Comments Whatever we're doing, it's actually working. I don't know what took so long, but I'm doing better. PT-OP-D Balance Start: 12/14/17 15:21 Freq: Status: Active Protocol: Document 12/14/17 14:03 DCW (Rec: 12/14/17 15:47 DCW [id number]) Balance Tests Little Balance Test Little Balance Test Score 40/56 Little Impairment Rating 20 to 39% Impaired (Score 34- 44) Little Balance Assessment Evaluation Sitting to Standing Ability Independent w/out Hands Unsupported Stance Safely- 2 minutes Sitting Unsupported, Feet on Floor Safely- 2 minutes Standing to Sitting Ability Safely, Minimal Hand Use Transfer Ability Safely, Minimal Hand Use Unsupported Stance- Eyes Closed Supervision, 10 seconds Unsupported Stance- Eyes Open Supervision to maintain Reaching Forward Standing Safely, 5 inches Pick- Up Object From Floor Within 2 inches, Unable Look Behind Shoulder - Standing Shifts Weight Unilateral Turning 360 Degrees Turns slowly, but safely Unsupported Stance, Alternating Feet on 4 Steps w/Supervision Stair Unsupported Tandem Stance Assist to Step-15 seconds Unilateral Leg Stance Lifts Leg/Unable to Hold Total Score Little Total Score (out of 56 points) 40 Little Impairment Rating 20 to 39% Impaired (Score 34- 44) PT-OP-F Manual Assessment Start: 12/14/17 15:48 Freq: Status: Active Protocol: Document 12/14/17 14:03 DCW (Rec: 12/14/17 15:49 DCW [id number]) Manual Assessments Soft Tissue Assessment Soft Tissue Mobility Assessment Muscle Tone: Upper trap: R mild, L WNL Suboccibitals: R mild, L moderate Scalenes: R WNL, L moderate Paraspinals: R mild, L moderate PT-OP-K Range of Motion Start: 12/14/17 15:21 Freq: Status: Active Protocol: Document 12/14/17 14:03 DCW (Rec: 12/14/17 15:47 DCW [id number]) Cervical Spine Range of Motion Cervical Spine Active Degrees Testing Position Sitting Flexion 45 Extension 40 Rotation Left 38 Rotation Right 45 Lateral Flexion Left 25 Lateral Flexion Right 18 ROM Limitations Soft Tissue Tightness Bony Restriction PT-OP-O Vestibular Start: 12/14/17 15:21 Freq: Status: Active Protocol: Document 12/14/17 14:03 DCW (Rec: 12/14/17 15:47 DCW [id number]) Vestibular Assessment Screening Tests Vestibular Artery Screen Negative Auditory Tests Rivero Test Negative Rinne Test Negative Air Conduction Results Equal Visual Testing Smooth Pursuits Horizontal Negative Saccades Horizontal Potential mild hypometria Heave Test Positive Right Thrust Head Positive Right Vestibular Function Tests CTSIB Position 1 Mild Sway CTSIB Position 2 Moderate Sway CTSIB Position 3 Moderate Sway CTSIB Position 4 Moderate Sway CTSIB Position 5 Fall Reaction CTSIB Position 6 Fall Reaction PT-OP-Q Treatments Start: 12/14/17 15:21 Freq: Status: Active Protocol: Document 02/20/18 11:15 DCW (Rec: 02/20/18 14:05 DCW [id number]) Gym Equipment Shuttle Balance 1 Details Red Comments Wide ARMANI (Eyes open/closed, head turns), Staggered Stance Manual Therapy Treatment Soft Tissue Mobilization 2 Body Location Suboccipitals Mobilization Type Sustained Pressure Intensity/Depth Superficial Body Position Supine 1 Body Location Upper Trap Mobilization Type Strain/Counterstrain Sustained Pressure Trigger Point Release Intensity/Depth Moderate Body Position Supine Manual Traction Cervical Body Position Supine PT-OP-T Assessment and Plan Start: 12/14/17 15:21 Freq: Status: Active Protocol: Document 02/20/18 11:15 DCW (Rec: 02/20/18 14:05 DCW [id number]) Physical Therapy Assessment Impairments Impairments Balance Coordination Vestibular Goals Five Impairment Muscle tone Short Term Goal (STG) Tone in pt's upper trap, paraspinals, suboccipitals, and scalenes shouild be at worst mild bilaterally STG Duration 01/13/18 Four Impairment Limited cervical ROM Landfill Gas Technician Goal (LTG) Cervical lateral flexion to 30 bilaterally Cervical rotation equal bilaterally LTG Duration 02/13/18 Three Impairment CTSIB Landfill Gas Technician Goal (LTG) Pt to have at worst Moderate Sway in positions II- LTG Duration 02/13/18 Two Impairment Little Balance scale Alf Goal (LTG) Pt to score 46/56 on Little Balance scale LTG Duration 02/13/18 One Impairment Decreased dynamic balance Landfill Gas Technician Goal (LTG) [facility] his appointment at [facility] without needing the use of his walking stick LTG Duration 02/13/18 Assessment Summary Assessment Pt howing increased stability in ambulation. During manual therapy, pt has less tone in superficial musculature. Physical Therapy Plan Frequency and Duration Frequency of Treatment 2x/Week Duration of Treatment 10 weeks Plan of Care Start Date 12/14/17 Plan of Care End Date 02/22/18 Therapeutic Interventions Therapeutic Interventions Aquatic Therapy Balance Training Home Exercise Program Joint Mobilizations Manual Therapy Neuromuscular Re-education Patient/Caregiver Education Self-Care/Home Management Soft Tissue Mobilization Therapeutic Exercises Modalities Cold Pack/Ice Massage Hot Packs Ultrasound Next Visit Focus/Plan Next Note Type Treatment Note Next Visit Plan Cervical STM, Manual traction, Balance training
--- NOTE | 2018-02-27 12:51 | PT.OPPOC ---
Current Diagnoses Other abnormalities of gait and mobility (03/02/18) Provider Visit Care Team Role Provider Type Aniyah Feliciano MD Attending Provider Physician Primary Care Provider Specialty: Family Practice Address: [address] [place] [address], [facility] Email: [email or web address] Plan Of Care PT-OP-T Assessment and Plan Start: 12/14/17 15:21 Freq: Status: Active Protocol: Document 02/27/18 11:15 DCW (Rec: 02/27/18 12:51 DCW [id number]) Physical Therapy Assessment Impairments Impairments Balance Coordination Vestibular Goals Five Impairment Muscle tone Short Term Goal (STG) Tone in pt's upper trap, paraspinals, suboccipitals, and scalenes shouild be at worst mild bilaterally STG Duration 03/30/17 Four Impairment Limited cervical ROM Rope Laying Machine Operator Goal (LTG) Cervical lateral flexion to 30 bilaterally Cervical rotation equal bilaterally LTG Duration 04/27/18 Three Impairment CTSIB Care Home Goal (LTG) Pt to have at worst Moderate Sway in positions II- LTG Duration 04/27/18 Two Impairment Little Balance scale Care Home Goal (LTG) Pt to score 46/56 on Little Balance scale LTG Duration 04/27/18 One Impairment Decreased dynamic balance Care Home Goal (LTG) Pt to walk from [facility] to his appointment at [facility] without needing the use of his walking stick LTG Duration 04/27/18 Assessment Summary Assessment Continued decreased tone, displays improved ability for sit<->supine on treatment table. Pt improving toward goals, however still subjectively feels like he randomly has better or worse days for no reason. Physical Therapy Plan Frequency and Duration Frequency of Treatment 2x/Week Duration of Treatment 10 weeks Plan of Care Start Date 02/27/18 Plan of Care End Date 05/08/18 Therapeutic Interventions Therapeutic Interventions Aquatic Therapy Balance Training Home Exercise Program Joint Mobilizations Manual Therapy Neuromuscular Re-education Patient/Caregiver Education Self-Care/Home Management Soft Tissue Mobilization Therapeutic Exercises Modalities Cold Pack/Ice Massage Hot Packs Ultrasound Next Visit Focus/Plan Next Note Type Treatment Note Next Visit Plan Cervical STM, Manual traction, Balance training Plan of Care Dates Plan of Care Start Date 02/27/18 Plan of Care End Date 05/08/18 Please Sign and Return: I have reviewed this Plan of Care and certify that the skilled therapy services above are required to meet the patient?s needs. Physician Signature Date Printed Name and Credentials Clinical Instructor Signature Printed Name and Credentials
--- NOTE | 2018-02-27 12:51 | PT.OTN ---
Current Diagnoses Other abnormalities of gait and mobility (02/27/18) Physical Therapy Treatment Note PT-OP-A Visit Information Start: 12/14/17 15:21 Freq: Status: Active Protocol: Document 02/27/18 11:15 DCW (Rec: 02/27/18 12:51 DC [id number]) Out-Patient Physical Therapy Visit Information Visit Information Visit Type Treatment Note Visit Start Time 11:15 Visit Stop Time 12:00 Total Visit Minutes 45 Visit Number 15 Number of OYSTER SORTER Visits 0 Evaluation Information Evaluation Date 12/14/17 PT-OP-B Current Condition Start: 12/14/17 15:21 Freq: Status: Active Protocol: Document 12/14/17 14:03 DCW (Rec: 12/14/17 15:47 DCW [id number]) Current Condition History of Current Condition Onset Date 8 months Current Complaints Pt has ongoing complaints of motion-induced imbalance History of Current Condition Pt is an 82 year-old male presenting with an eight month history of motion-induced imbalance. Pt was being treated at this clinic up until 11/30/17, after which he underwent a laparoscopic colon resection secondary to colon cancer. Pt was admitted to inpatient for four days following surgery, and then returned to [facility], where he has been living with his , who is suffering from dementia. Pt reports that his balance had be improving with his recent therapy, which had focused on both balance training and therapy for cervical hypertonia. Pt believes his balance issues are mainly caused by his cervical spine, and noticed a large improvement upon starting therapy for his cervical problems. Treatment Goals Patient/Caregiver Goals Pt's goal is to improve his balance Prior Functional Status Baseline Function- ADL's Modified Independent Baseline Function- Mobility Modified Independent Baseline Function- Gait Uses walking stick for stability Current Functional Impairments (Reported) Functional Limitations- Mobility/Gait Pt reports poor balance, requires an assistive device or a hand on a wall at all times. Pt has suffered multiple falls, the most recent being December last year (2016). PT-OP-C Subjective Start: 12/14/17 15:21 Freq: Status: Active Protocol: Document 02/27/18 11:15 DCW (Rec: 02/27/18 12:51 DCW [id number]) OP-PT Subjective Patient Comments Patient Comments Pt reports he has been feeling better, but admits that he fell over the weekend, after being unable to stop on a down -hill sloped sideway, and he ended up faceplanting into a shrub. Pt reports he suffered no injuries, but needed help getting up due to his positioning in the shrub. PT-OP-D Balance Start: 12/14/17 15:21 Freq: Status: Active Protocol: Document 12/14/17 14:03 DCW (Rec: 12/14/17 15:47 DCW [id number]) Balance Tests Little Balance Test Little Balance Test Score 40/56 Little Impairment Rating 20 to 39% Impaired (Score 34- 44) Little Balance Assessment Evaluation Sitting to Standing Ability Independent w/out Hands Unsupported Stance Safely- 2 minutes Sitting Unsupported, Feet on Floor Safely- 2 minutes Standing to Sitting Ability Safely, Minimal Hand Use Transfer Ability Safely, Minimal Hand Use Unsupported Stance- Eyes Closed Supervision, 10 seconds Unsupported Stance- Eyes Open Supervision to maintain Reaching Forward Standing Safely, 5 inches Pick- Up Object From Floor Within 2 inches, Unable Look Behind Shoulder - Standing Shifts Weight Unilateral Turning 360 Degrees Turns slowly, but safely Unsupported Stance, Alternating Feet on 4 Steps w/Supervision Stair Unsupported Tandem Stance Assist to Step-15 seconds Unilateral Leg Stance Lifts Leg/Unable to Hold Total Score Little Total Score (out of 56 points) 40 Little Impairment Rating 20 to 39% Impaired (Score 34- 44) PT-OP-F Manual Assessment Start: 12/14/17 15:48 Freq: Status: Active Protocol: Document 12/14/17 14:03 DCW (Rec: 12/14/17 15:49 DC [id number]) Manual Assessments Soft Tissue Assessment Soft Tissue Mobility Assessment Muscle Tone: Upper trap: R mild, L WNL Suboccibitals: R mild, L moderate Scalenes: R WNL, L moderate Paraspinals: R mild, L moderate PT-OP-K Range of Motion Start: 12/14/17 15:21 Freq: Status: Active Protocol: Document 12/14/17 14:03 DCW (Rec: 12/14/17 15:47 DCW [id number]) Cervical Spine Range of Motion Cervical Spine Active Degrees Testing Position Sitting Flexion 45 Extension 40 Rotation Left 38 Rotation Right 45 Lateral Flexion Left 25 Lateral Flexion Right 18 ROM Limitations Soft Tissue Tightness Bony Restriction PT-OP-O Vestibular Start: 12/14/17 15:21 Freq: Status: Active Protocol: Document 12/14/17 14:03 DCW (Rec: 12/14/17 15:47 DCW [id number]) Vestibular Assessment Screening Tests Vestibular Artery Screen Negative Auditory Tests Rivero Test Negative Rinne Test Negative Air Conduction Results Equal Visual Testing Smooth Pursuits Horizontal Negative Saccades Horizontal Potential mild hypometria Heave Test Positive Right Thrust Head Positive Right Vestibular Function Tests CTSIB Position 1 Mild Sway CTSIB Position 2 Moderate Sway CTSIB Position 3 Moderate Sway CTSIB Position 4 Moderate Sway CTSIB Position 5 Fall Reaction CTSIB Position 6 Fall Reaction PT-OP-Q Treatments Start: 12/14/17 15:21 Freq: Status: Active Protocol: Document 02/27/18 11:15 DCW (Rec: 02/27/18 12:51 DCW [id number]) Gym Equipment Shuttle Balance 1 Details Red Comments Wide ARMANI (Eyes open/closed, head turns), Staggered Stance Manual Therapy Treatment Soft Tissue Mobilization 2 Body Location Suboccipitals Mobilization Type Sustained Pressure Intensity/Depth Superficial Body Position Supine 1 Body Location Upper Trap Mobilization Type Strain/Counterstrain Sustained Pressure Trigger Point Release Intensity/Depth Moderate Body Position Supine Manual Traction Cervical Body Position Supine PT-OP-T Assessment and Plan Start: 12/14/17 15:21 Freq: Status: Active Protocol: Document 02/27/18 11:15 DCW (Rec: 02/27/18 12:51 DCW [id number]) Physical Therapy Assessment Impairments Impairments Balance Coordination Vestibular Goals Five Impairment Muscle tone Short Term Goal (STG) Tone in pt's upper trap, paraspinals, suboccipitals, and scalenes shouild be at worst mild bilaterally STG Duration 01/13/18 Four Impairment Limited cervical ROM Product Safety Coordinator Goal (LTG) Cervical lateral flexion to 30 bilaterally Cervical rotation equal bilaterally LTG Duration 02/13/18 Three Impairment CTSIB Product Safety Coordinator Goal (LTG) Pt to have at worst Moderate Sway in positions II- LTG Duration 02/13/18 Two Impairment Little Balance scale Long-Term Goal (LTG) Pt to score 46/56 on Little Balance scale LTG Duration 02/13/18 One Impairment Decreased dynamic balance Long-Term Goal (LTG) Pt to walk from [facility] to his appointment at [facility] without needing the use of his walking stick LTG Duration 02/13/18 Assessment Summary Assessment Continued decreased tone, displays improved ability for sit<->supine on treatment table. Physical Therapy Plan Frequency and Duration Frequency of Treatment 2x/Week Duration of Treatment 10 weeks Plan of Care Start Date 12/14/17 Plan of Care End Date 02/22/18 Therapeutic Interventions Therapeutic Interventions Aquatic Therapy Balance Training Home Exercise Program Joint Mobilizations Manual Therapy Neuromuscular Re-education Patient/Caregiver Education Self-Care/Home Management Soft Tissue Mobilization Therapeutic Exercises Modalities Cold Pack/Ice Massage Hot Packs Ultrasound Next Visit Focus/Plan Next Note Type Treatment Note Next Visit Plan Cervical STM, Manual traction, Balance training
--- NOTE | 2018-03-02 16:56 | PT.OTN ---
Current Diagnoses Other abnormalities of gait and mobility (03/02/18) Physical Therapy Treatment Note PT-OP-A Visit Information Start: 12/14/17 15:21 Freq: Status: Active Protocol: Document 03/02/18 11:15 DCW (Rec: 03/02/18 16:56 DC [id number]) Out-Patient Physical Therapy Visit Information Visit Information Visit Type Treatment Note Visit Start Time 11:15 Visit Stop Time 12:00 Total Visit Minutes 45 Visit Number 16 Number of NATIONAL ACCOUNT EXECUTIVE Visits 0 Evaluation Information Evaluation Date 12/14/17 PT-OP-B Current Condition Start: 12/14/17 15:21 Freq: Status: Active Protocol: Document 12/14/17 14:03 DCW (Rec: 12/14/17 15:47 DCW [id number]) Current Condition History of Current Condition Onset Date 8 months Current Complaints Pt has ongoing complaints of motion-induced imbalance History of Current Condition Pt is an 82 year-old male presenting with an eight month history of motion-induced imbalance. Pt was being treated at this clinic up until 11/30/17, after which he underwent a laparoscopic colon resection secondary to colon cancer. Pt was admitted to inpatient for four days following surgery, and then returned to [facility], where he has been living with his , who is suffering from dementia. Pt reports that his balance had be improving with his recent therapy, which had focused on both balance training and therapy for cervical hypertonia. Pt believes his balance issues are mainly caused by his cervical spine, and noticed a large improvement upon starting therapy for his cervical problems. Treatment Goals Patient/Caregiver Goals Pt's goal is to improve his balance Prior Functional Status Baseline Function- ADL's Modified Independent Baseline Function- Mobility Modified Independent Baseline Function- Gait Uses walking stick for stability Current Functional Impairments (Reported) Functional Limitations- Mobility/Gait Pt reports poor balance, requires an assistive device or a hand on a wall at all times. Pt has suffered multiple falls, the most recent being December last year (2016). PT-OP-C Subjective Start: 12/14/17 15:21 Freq: Status: Active Protocol: Document 03/02/18 11:15 DCW (Rec: 03/02/18 16:56 DCW [id number]) OP-PT Subjective Patient Comments Patient Comments Pt having another good day, reports he went to the chiropractor this morning to get C2 fixed, but admits his vision is still a little fuzzy. PT-OP-D Balance Start: 12/14/17 15:21 Freq: Status: Active Protocol: Document 12/14/17 14:03 DCW (Rec: 12/14/17 15:47 DCW [id number]) Balance Tests Little Balance Test Little Balance Test Score 40/56 Little Impairment Rating 20 to 39% Impaired (Score 34- 44) Little Balance Assessment Evaluation Sitting to Standing Ability Independent w/out Hands Unsupported Stance Safely- 2 minutes Sitting Unsupported, Feet on Floor Safely- 2 minutes Standing to Sitting Ability Safely, Minimal Hand Use Transfer Ability Safely, Minimal Hand Use Unsupported Stance- Eyes Closed Supervision, 10 seconds Unsupported Stance- Eyes Open Supervision to maintain Reaching Forward Standing Safely, 5 inches Pick- Up Object From Floor Within 2 inches, Unable Look Behind Shoulder - Standing Shifts Weight Unilateral Turning 360 Degrees Turns slowly, but safely Unsupported Stance, Alternating Feet on 4 Steps w/Supervision Stair Unsupported Tandem Stance Assist to Step-15 seconds Unilateral Leg Stance Lifts Leg/Unable to Hold Total Score Little Total Score (out of 56 points) 40 Little Impairment Rating 20 to 39% Impaired (Score 34- 44) PT-OP-F Manual Assessment Start: 12/14/17 15:48 Freq: Status: Active Protocol: Document 12/14/17 14:03 DCW (Rec: 12/14/17 15:49 DCW [id number]) Manual Assessments Soft Tissue Assessment Soft Tissue Mobility Assessment Muscle Tone: Upper trap: R mild, L WNL Suboccibitals: R mild, L moderate Scalenes: R WNL, L moderate Paraspinals: R mild, L moderate PT-OP-K Range of Motion Start: 12/14/17 15:21 Freq: Status: Active Protocol: Document 12/14/17 14:03 DCW (Rec: 12/14/17 15:47 DCW [id number]) Cervical Spine Range of Motion Cervical Spine Active Degrees Testing Position Sitting Flexion 45 Extension 40 Rotation Left 38 Rotation Right 45 Lateral Flexion Left 25 Lateral Flexion Right 18 ROM Limitations Soft Tissue Tightness Bony Restriction PT-OP-O Vestibular Start: 12/14/17 15:21 Freq: Status: Active Protocol: Document 12/14/17 14:03 DCW (Rec: 12/14/17 15:47 DCW [id number]) Vestibular Assessment Screening Tests Vestibular Artery Screen Negative Auditory Tests Rivero Test Negative Rinne Test Negative Air Conduction Results Equal Visual Testing Smooth Pursuits Horizontal Negative Saccades Horizontal Potential mild hypometria Heave Test Positive Right Thrust Head Positive Right Vestibular Function Tests CTSIB Position 1 Mild Sway CTSIB Position 2 Moderate Sway CTSIB Position 3 Moderate Sway CTSIB Position 4 Moderate Sway CTSIB Position 5 Fall Reaction CTSIB Position 6 Fall Reaction PT-OP-Q Treatments Start: 12/14/17 15:21 Freq: Status: Active Protocol: Document 03/02/18 11:15 DCW (Rec: 03/02/18 16:56 DCW [id number]) Gym Equipment Shuttle Balance 1 Details Red Comments Wide ARMANI (Eyes open/closed, head turns), Staggered Stance Manual Therapy Treatment Soft Tissue Mobilization 2 Body Location Suboccipitals Mobilization Type Sustained Pressure Intensity/Depth Superficial Body Position Supine 1 Body Location Upper Trap Mobilization Type Strain/Counterstrain Sustained Pressure Trigger Point Release Intensity/Depth Moderate Body Position Supine Manual Traction Cervical Body Position Supine PT-OP-T Assessment and Plan Start: 12/14/17 15:21 Freq: Status: Active Protocol: Document 03/02/18 11:15 DCW (Rec: 03/02/18 16:56 DCW [id number]) Physical Therapy Assessment Impairments Impairments Balance Coordination Vestibular Goals Five Impairment Muscle tone Short Term Goal (STG) Tone in pt's upper trap, paraspinals, suboccipitals, and scalenes shouild be at worst mild bilaterally STG Duration 03/30/17 Four Impairment Limited cervical ROM Sheepskin Pickler Goal (LTG) Cervical lateral flexion to 30 bilaterally Cervical rotation equal bilaterally LTG Duration 04/27/18 Three Impairment CTSIB Sheepskin Pickler Goal (LTG) Pt to have at worst Moderate Sway in positions II- LTG Duration 04/27/18 Two Impairment Little Balance scale Group Home Goal (LTG) Pt to score 46/56 on Little Balance scale LTG Duration 04/27/18 One Impairment Decreased dynamic balance Sheepskin Pickler Goal (LTG) Pt to walk from [facility] to his appointment at [facility] without needing the use of his walking stick LTG Duration 04/27/18 Assessment Summary Assessment Pt much improved on Shuttle Balance today, pt reports he is very happy to be seeing some actual progress. Physical Therapy Plan Frequency and Duration Frequency of Treatment 2x/Week Duration of Treatment 10 weeks Plan of Care Start Date 02/27/18 Plan of Care End Date 05/08/18 Therapeutic Interventions Therapeutic Interventions Aquatic Therapy Balance Training Home Exercise Program Joint Mobilizations Manual Therapy Neuromuscular Re-education Patient/Caregiver Education Self-Care/Home Management Soft Tissue Mobilization Therapeutic Exercises Modalities Cold Pack/Ice Massage Hot Packs Ultrasound Next Visit Focus/Plan Next Note Type Treatment Note Next Visit Plan Cervical STM, Manual traction, Balance training
--- NOTE | 2018-03-08 12:40 | PT.OTN ---
Current Diagnoses Other abnormalities of gait and mobility (03/08/18) Physical Therapy Treatment Note PT-OP-A Visit Information Start: 12/14/17 15:21 Freq: Status: Active Protocol: Document 03/08/18 12:00 DCW (Rec: 03/08/18 12:39 DCW [id number]) Out-Patient Physical Therapy Visit Information Visit Information Visit Type Treatment Note Visit Start Time 12:00 Visit Stop Time 12:45 Total Visit Minutes 45 Visit Number 17 Number of BEAN SORTER Visits 0 Evaluation Information Evaluation Date 12/14/17 PT-OP-B Current Condition Start: 12/14/17 15:21 Freq: Status: Active Protocol: Document 12/14/17 14:03 DCW (Rec: 12/14/17 15:47 DCW [id number]) Current Condition History of Current Condition Onset Date 8 months Current Complaints Pt has ongoing complaints of motion-induced imbalance History of Current Condition Pt is an 82 year-old male presenting with an eight month history of motion-induced imbalance. Pt was being treated at this clinic up until 11/30/17, after which he underwent a laparoscopic colon resection secondary to colon cancer. Pt was admitted to inpatient for four days following surgery, and then returned to [facility], where he has been living with his , who is suffering from dementia. Pt reports that his balance had be improving with his recent therapy, which had focused on both balance training and therapy for cervical hypertonia. Pt believes his balance issues are mainly caused by his cervical spine, and noticed a large improvement upon starting therapy for his cervical problems. Treatment Goals Patient/Caregiver Goals Pt's goal is to improve his balance Prior Functional Status Baseline Function- ADL's Modified Independent Baseline Function- Mobility Modified Independent Baseline Function- Gait Uses walking stick for stability Current Functional Impairments (Reported) Functional Limitations- Mobility/Gait Pt reports poor balance, requires an assistive device or a hand on a wall at all times. Pt has suffered multiple falls, the most recent being December last year (2016). PT-OP-C Subjective Start: 12/14/17 15:21 Freq: Status: Active Protocol: Document 03/08/18 12:00 DCW (Rec: 03/08/18 12:39 DCW [id number]) OP-PT Subjective Patient Comments Patient Comments I'm worse today. My vision is fuzzy and my balance is worse today. PT-OP-D Balance Start: 12/14/17 15:21 Freq: Status: Active Protocol: Document 12/14/17 14:03 DCW (Rec: 12/14/17 15:47 DCW [id number]) Balance Tests Ltitle Balance Test Little Balance Test Score 40/56 Little Impairment Rating 20 to 39% Impaired (Score 34- 44) Little Balance Assessment Evaluation Sitting to Standing Ability Independent w/out Hands Unsupported Stance Safely- 2 minutes Sitting Unsupported, Feet on Floor Safely- 2 minutes Standing to Sitting Ability Safely, Minimal Hand Use Transfer Ability Safely, Minimal Hand Use Unsupported Stance- Eyes Closed Supervision, 10 seconds Unsupported Stance- Eyes Open Supervision to maintain Reaching Forward Standing Safely, 5 inches Pick- Up Object From Floor Within 2 inches, Unable Look Behind Shoulder - Standing Shifts Weight Unilateral Turning 360 Degrees Turns slowly, but safely Unsupported Stance, Alternating Feet on 4 Steps w/Supervision Stair Unsupported Tandem Stance Assist to Step-15 seconds Unilateral Leg Stance Lifts Leg/Unable to Hold Total Score Little Total Score (out of 56 points) 40 Little Impairment Rating 20 to 39% Impaired (Score 34- 44) PT-OP-F Manual Assessment Start: 12/14/17 15:48 Freq: Status: Active Protocol: Document 12/14/17 14:03 DCW (Rec: 12/14/17 15:49 DCW [id number]) Manual Assessments Soft Tissue Assessment Soft Tissue Mobility Assessment Muscle Tone: Upper trap: R mild, L WNL Suboccibitals: R mild, L moderate Scalenes: R WNL, L moderate Paraspinals: R mild, L moderate PT-OP-K Range of Motion Start: 12/14/17 15:21 Freq: Status: Active Protocol: Document 12/14/17 14:03 DCW (Rec: 12/14/17 15:47 DCW [id number]) Cervical Spine Range of Motion Cervical Spine Active Degrees Testing Position Sitting Flexion 45 Extension 40 Rotation Left 38 Rotation Right 45 Lateral Flexion Left 25 Lateral Flexion Right 18 ROM Limitations Soft Tissue Tightness Bony Restriction PT-OP-O Vestibular Start: 12/14/17 15:21 Freq: Status: Active Protocol: Document 12/14/17 14:03 DCW (Rec: 12/14/17 15:47 DCW [id number]) Vestibular Assessment Screening Tests Vestibular Artery Screen Negative Auditory Tests Rivero Test Negative Rinne Test Negative Air Conduction Results Equal Visual Testing Smooth Pursuits Horizontal Negative Saccades Horizontal Potential mild hypometria Heave Test Positive Right Thrust Head Positive Right Vestibular Function Tests CTSIB Position 1 Mild Sway CTSIB Position 2 Moderate Sway CTSIB Position 3 Moderate Sway CTSIB Position 4 Moderate Sway CTSIB Position 5 Fall Reaction CTSIB Position 6 Fall Reaction PT-OP-Q Treatments Start: 12/14/17 15:21 Freq: Status: Active Protocol: Document 03/08/18 12:00 DCW (Rec: 03/08/18 12:39 DCW [id number]) Gym Equipment Shuttle Balance 1 Details Red Comments Wide ARMANI (Eyes open/closed, head turns), Staggered Stance Manual Therapy Treatment Soft Tissue Mobilization 2 Body Location Suboccipitals Mobilization Type Sustained Pressure Intensity/Depth Superficial Body Position Supine 1 Body Location Upper Trap Mobilization Type Strain/Counterstrain Sustained Pressure Trigger Point Release Intensity/Depth Moderate Body Position Supine Manual Traction Cervical Body Position Supine Neuro Re-Education Treatment Balance Activities 10 Details Narrow ARMANI Comments Head turns, Eyes closed PT-OP-T Assessment and Plan Start: 12/14/17 15:21 Freq: Status: Active Protocol: Document 03/08/18 12:00 DCW (Rec: 03/08/18 12:39 DCW [id number]) Physical Therapy Assessment Impairments Impairments Balance Coordination Vestibular Goals Five Impairment Muscle tone Short Term Goal (STG) Tone in pt's upper trap, paraspinals, suboccipitals, and scalenes shouild be at worst mild bilaterally STG Duration 03/30/17 Four Impairment Limited cervical ROM Community Affairs Manager Goal (LTG) Cervical lateral flexion to 30 bilaterally Cervical rotation equal bilaterally LTG Duration 04/27/18 Three Impairment CTSIB Group Home Goal (LTG) Pt to have at worst Moderate Sway in positions II- LTG Duration 04/27/18 Two Impairment Little Balance scale Group Home Goal (LTG) Pt to score 46/56 on Little Balance scale LTG Duration 04/27/18 One Impairment Decreased dynamic balance Community Affairs Manager Goal (LTG) Pt to walk from [facility] to his appointment at [facility] without needing the use of his walking stick LTG Duration 04/27/18 Assessment Summary Assessment Difficult to determine pt's current level of progress, as at different times during today's session reported he was doing better than normal and worse than normal. Physical Therapy Plan Frequency and Duration Frequency of Treatment 2x/Week Duration of Treatment 10 weeks Plan of Care Start Date 02/27/18 Plan of Care End Date 05/08/18 Therapeutic Interventions Therapeutic Interventions Aquatic Therapy Balance Training Home Exercise Program Joint Mobilizations Manual Therapy Neuromuscular Re-education Patient/Caregiver Education Self-Care/Home Management Soft Tissue Mobilization Therapeutic Exercises Modalities Cold Pack/Ice Massage Hot Packs Ultrasound Next Visit Focus/Plan Next Note Type Treatment Note Next Visit Plan Cervical STM, Manual traction, Balance training
--- NOTE | 2018-03-13 12:41 | PT.OTN ---
Current Diagnoses Other abnormalities of gait and mobility (03/13/18) Physical Therapy Treatment Note PT-OP-A Visit Information Start: 12/14/17 15:21 Freq: Status: Active Protocol: Document 03/13/18 12:00 DCW (Rec: 03/13/18 12:41 DCW [id number]) Out-Patient Physical Therapy Visit Information Visit Information Visit Type Treatment Note Visit Start Time 12:00 Visit Stop Time 12:45 Total Visit Minutes 45 Visit Number 18 Number of ELECTROLYSIS ENGINEER Visits 0 Evaluation Information Evaluation Date 12/14/17 PT-OP-B Current Condition Start: 12/14/17 15:21 Freq: Status: Active Protocol: Document 12/14/17 14:03 DCW (Rec: 12/14/17 15:47 DCW [id number]) Current Condition History of Current Condition Onset Date 8 months Current Complaints Pt has ongoing complaints of motion-induced imbalance History of Current Condition Pt is an 82 year-old male presenting with an eight month history of motion-induced imbalance. Pt was being treated at this clinic up until 11/30/17, after which he underwent a laparoscopic colon resection secondary to colon cancer. Pt was admitted to inpatient for four days following surgery, and then returned to [facility], where he has been living with his , who is suffering from dementia. Pt reports that his balance had be improving with his recent therapy, which had focused on both balance training and therapy for cervical hypertonia. Pt believes his balance issues are mainly caused by his cervical spine, and noticed a large improvement upon starting therapy for his cervical problems. Treatment Goals Patient/Caregiver Goals Pt's goal is to improve his balance Prior Functional Status Baseline Function- ADL's Modified Independent Baseline Function- Mobility Modified Independent Baseline Function- Gait Uses walking stick for stability Current Functional Impairments (Reported) Functional Limitations- Mobility/Gait Pt reports poor balance, requires an assistive device or a hand on a wall at all times. Pt has suffered multiple falls, the most recent being December last year (2016). PT-OP-C Subjective Start: 12/14/17 15:21 Freq: Status: Active Protocol: Document 03/13/18 12:00 DCW (Rec: 03/13/18 12:41 DCW [id number]) OP-PT Subjective Patient Comments Patient Comments Pt notes that he's not great today, but offers no other explaination PT-OP-D Balance Start: 12/14/17 15:21 Freq: Status: Active Protocol: Document 12/14/17 14:03 DCW (Rec: 12/14/17 15:47 DCW [id number]) Balance Tests Little Balance Test Little Balance Test Score 40/56 Little Impairment Rating 20 to 39% Impaired (Score 34- 44) Little Balance Assessment Evaluation Sitting to Standing Ability Independent w/out Hands Unsupported Stance Safely- 2 minutes Sitting Unsupported, Feet on Floor Safely- 2 minutes Standing to Sitting Ability Safely, Minimal Hand Use Transfer Ability Safely, Minimal Hand Use Unsupported Stance- Eyes Closed Supervision, 10 seconds Unsupported Stance- Eyes Open Supervision to maintain Reaching Forward Standing Safely, 5 inches Pick- Up Object From Floor Within 2 inches, Unable Look Behind Shoulder - Standing Shifts Weight Unilateral Turning 360 Degrees Turns slowly, but safely Unsupported Stance, Alternating Feet on 4 Steps w/Supervision Stair Unsupported Tandem Stance Assist to Step-15 seconds Unilateral Leg Stance Lifts Leg/Unable to Hold Total Score Little Total Score (out of 56 points) 40 Little Impairment Rating 20 to 39% Impaired (Score 34- 44) PT-OP-F Manual Assessment Start: 12/14/17 15:48 Freq: Status: Active Protocol: Document 12/14/17 14:03 DCW (Rec: 12/14/17 15:49 DCW [id number]) Manual Assessments Soft Tissue Assessment Soft Tissue Mobility Assessment Muscle Tone: Upper trap: R mild, L WNL Suboccibitals: R mild, L moderate Scalenes: R WNL, L moderate Paraspinals: R mild, L moderate PT-OP-K Range of Motion Start: 12/14/17 15:21 Freq: Status: Active Protocol: Document 12/14/17 14:03 DCW (Rec: 12/14/17 15:47 DCW [id number]) Cervical Spine Range of Motion Cervical Spine Active Degrees Testing Position Sitting Flexion 45 Extension 40 Rotation Left 38 Rotation Right 45 Lateral Flexion Left 25 Lateral Flexion Right 18 ROM Limitations Soft Tissue Tightness Bony Restriction PT-OP-O Vestibular Start: 12/14/17 15:21 Freq: Status: Active Protocol: Document 12/14/17 14:03 DCW (Rec: 12/14/17 15:47 DCW [id number]) Vestibular Assessment Screening Tests Vestibular Artery Screen Negative Auditory Tests Rivero Test Negative Rinne Test Negative Air Conduction Results Equal Visual Testing Smooth Pursuits Horizontal Negative Saccades Horizontal Potential mild hypometria Heave Test Positive Right Thrust Head Positive Right Vestibular Function Tests CTSIB Position 1 Mild Sway CTSIB Position 2 Moderate Sway CTSIB Position 3 Moderate Sway CTSIB Position 4 Moderate Sway CTSIB Position 5 Fall Reaction CTSIB Position 6 Fall Reaction PT-OP-Q Treatments Start: 12/14/17 15:21 Freq: Status: Active Protocol: Document 03/13/18 12:00 DCW (Rec: 03/13/18 12:41 DCW [id number]) Gym Equipment Shuttle Balance 1 Details Red Comments Wide ARMANI (Eyes open/closed, head turns), Staggered Stance Manual Therapy Treatment Soft Tissue Mobilization 3 Body Location Cervical paraspinals Mobilization Type Strumming Sustained Pressure Trigger Point Release Intensity/Depth Deep Body Position Supine 2 Body Location Suboccipitals Mobilization Type Sustained Pressure Intensity/Depth Superficial Body Position Supine 1 Body Location Upper Trap Mobilization Type Strain/Counterstrain Sustained Pressure Trigger Point Release Intensity/Depth Moderate Body Position Supine Manual Traction Cervical Body Position Supine PT-OP-T Assessment and Plan Start: 12/14/17 15:21 Freq: Status: Active Protocol: Document 03/13/18 12:00 DCW (Rec: 03/13/18 12:41 DCW [id number]) Physical Therapy Assessment Impairments Impairments Balance Coordination Vestibular Goals Five Impairment Muscle tone Short Term Goal (STG) Tone in pt's upper trap, paraspinals, suboccipitals, and scalenes shouild be at worst mild bilaterally STG Duration 03/30/17 Four Impairment Limited cervical ROM Ingredient Scaler Helper Goal (LTG) Cervical lateral flexion to 30 bilaterally Cervical rotation equal bilaterally LTG Duration 04/27/18 Three Impairment CTSIB Long-Term Goal (LTG) Pt to have at worst Moderate Sway in positions II- LTG Duration 04/27/18 Two Impairment Little Balance scale Long-Term Goal (LTG) Pt to score 46/56 on Little Balance scale LTG Duration 04/27/18 One Impairment Decreased dynamic balance Ingredient Scaler Helper Goal (LTG) Pt to walk from [facility] to his appointment at [facility] without needing the use of his walking stick LTG Duration 04/27/18 Assessment Summary Assessment Pt continues to complain of vague symptoms of imbalance with no knowledge of ways to improve or worsen symptoms. Physical Therapy Plan Frequency and Duration Frequency of Treatment 2x/Week Duration of Treatment 10 weeks Plan of Care Start Date 02/27/18 Plan of Care End Date 05/08/18 Therapeutic Interventions Therapeutic Interventions Aquatic Therapy Balance Training Home Exercise Program Joint Mobilizations Manual Therapy Neuromuscular Re-education Patient/Caregiver Education Self-Care/Home Management Soft Tissue Mobilization Therapeutic Exercises Modalities Cold Pack/Ice Massage Hot Packs Ultrasound Next Visit Focus/Plan Next Note Type Treatment Note Next Visit Plan Cervical STM, Manual traction, Balance training
--- NOTE | 2018-03-15 12:39 | PT.OTN ---
Current Diagnoses Other abnormalities of gait and mobility (03/15/18) Physical Therapy Treatment Note PT-OP-A Visit Information Start: 12/14/17 15:21 Freq: Status: Active Protocol: Document 03/15/18 12:00 DCW (Rec: 03/15/18 12:39 DCW [id number]) Out-Patient Physical Therapy Visit Information Visit Information Visit Type Treatment Note Visit Start Time 12:00 Visit Stop Time 12:45 Total Visit Minutes 45 Visit Number 19 Number of SUBSTATION DESIGNER Visits 0 Evaluation Information Evaluation Date 12/14/17 PT-OP-B Current Condition Start: 12/14/17 15:21 Freq: Status: Active Protocol: Document 12/14/17 14:03 DCW (Rec: 12/14/17 15:47 DCW [id number]) Current Condition History of Current Condition Onset Date 8 months Current Complaints Pt has ongoing complaints of motion-induced imbalance History of Current Condition Pt is an 82 year-old male presenting with an eight month history of motion-induced imbalance. Pt was being treated at this clinic up until 11/30/17, after which he underwent a laparoscopic colon resection secondary to colon cancer. Pt was admitted to inpatient for four days following surgery, and then returned to [facility], where he has been living with his , who is suffering from dementia. Pt reports that his balance had be improving with his recent therapy, which had focused on both balance training and therapy for cervical hypertonia. Pt believes his balance issues are mainly caused by his cervical spine, and noticed a large improvement upon starting therapy for his cervical problems. Treatment Goals Patient/Caregiver Goals Pt's goal is to improve his balance Prior Functional Status Baseline Function- ADL's Modified Independent Baseline Function- Mobility Modified Independent Baseline Function- Gait Uses walking stick for stability Current Functional Impairments (Reported) Functional Limitations- Mobility/Gait Pt reports poor balance, requires an assistive device or a hand on a wall at all times. Pt has suffered multiple falls, the most recent being December last year (2016). PT-OP-C Subjective Start: 12/14/17 15:21 Freq: Status: Active Protocol: Document 03/15/18 12:00 DCW (Rec: 03/15/18 12:39 DCW [id number]) OP-PT Subjective Patient Comments Patient Comments I feel like my vision is gradually improving. PT-OP-D Balance Start: 12/14/17 15:21 Freq: Status: Active Protocol: Document 12/14/17 14:03 DCW (Rec: 12/14/17 15:47 DCW [id number]) Balance Tests Little Balance Test Little Balance Test Score 40/56 Little Impairment Rating 20 to 39% Impaired (Score 34- 44) Little Balance Assessment Evaluation Sitting to Standing Ability Independent w/out Hands Unsupported Stance Safely- 2 minutes Sitting Unsupported, Feet on Floor Safely- 2 minutes Standing to Sitting Ability Safely, Minimal Hand Use Transfer Ability Safely, Minimal Hand Use Unsupported Stance- Eyes Closed Supervision, 10 seconds Unsupported Stance- Eyes Open Supervision to maintain Reaching Forward Standing Safely, 5 inches Pick- Up Object From Floor Within 2 inches, Unable Look Behind Shoulder - Standing Shifts Weight Unilateral Turning 360 Degrees Turns slowly, but safely Unsupported Stance, Alternating Feet on 4 Steps w/Supervision Stair Unsupported Tandem Stance Assist to Step-15 seconds Unilateral Leg Stance Lifts Leg/Unable to Hold Total Score Little Total Score (out of 56 points) 40 Little Impairment Rating 20 to 39% Impaired (Score 34- 44) PT-OP-F Manual Assessment Start: 12/14/17 15:48 Freq: Status: Active Protocol: Document 12/14/17 14:03 DCW (Rec: 12/14/17 15:49 DCW [id number]) Manual Assessments Soft Tissue Assessment Soft Tissue Mobility Assessment Muscle Tone: Upper trap: R mild, L WNL Suboccibitals: R mild, L moderate Scalenes: R WNL, L moderate Paraspinals: R mild, L moderate PT-OP-K Range of Motion Start: 12/14/17 15:21 Freq: Status: Active Protocol: Document 12/14/17 14:03 DCW (Rec: 12/14/17 15:47 DCW [id number]) Cervical Spine Range of Motion Cervical Spine Active Degrees Testing Position Sitting Flexion 45 Extension 40 Rotation Left 38 Rotation Right 45 Lateral Flexion Left 25 Lateral Flexion Right 18 ROM Limitations Soft Tissue Tightness Bony Restriction PT-OP-O Vestibular Start: 12/14/17 15:21 Freq: Status: Active Protocol: Document 12/14/17 14:03 DCW (Rec: 12/14/17 15:47 DCW [id number]) Vestibular Assessment Screening Tests Vestibular Artery Screen Negative Auditory Tests Rivero Test Negative Rinne Test Negative Air Conduction Results Equal Visual Testing Smooth Pursuits Horizontal Negative Saccades Horizontal Potential mild hypometria Heave Test Positive Right Thrust Head Positive Right Vestibular Function Tests CTSIB Position 1 Mild Sway CTSIB Position 2 Moderate Sway CTSIB Position 3 Moderate Sway CTSIB Position 4 Moderate Sway CTSIB Position 5 Fall Reaction CTSIB Position 6 Fall Reaction PT-OP-Q Treatments Start: 12/14/17 15:21 Freq: Status: Active Protocol: Document 03/15/18 12:00 DCW (Rec: 03/15/18 12:39 DCW [id number]) Gym Equipment Shuttle Balance 1 Details Red Comments Wide ARMANI (Eyes open/closed, head turns), Staggered Stance Manual Therapy Treatment Soft Tissue Mobilization 3 Body Location Cervical paraspinals Mobilization Type Strumming Sustained Pressure Trigger Point Release Intensity/Depth Deep Body Position Supine 2 Body Location Suboccipitals Mobilization Type Sustained Pressure Intensity/Depth Superficial Body Position Supine 1 Body Location Upper Trap Mobilization Type Strain/Counterstrain Sustained Pressure Trigger Point Release Intensity/Depth Moderate Body Position Supine Manual Traction Cervical Body Position Supine PT-OP-T Assessment and Plan Start: 12/14/17 15:21 Freq: Status: Active Protocol: Document 03/15/18 12:00 DCW (Rec: 03/15/18 12:39 DCW [id number]) Physical Therapy Assessment Impairments Impairments Balance Coordination Vestibular Goals Five Impairment Muscle tone Short Term Goal (STG) Tone in pt's upper trap, paraspinals, suboccipitals, and scalenes shouild be at worst mild bilaterally STG Duration 03/30/17 Four Impairment Limited cervical ROM Disease And Insect Control Boss Goal (LTG) Cervical lateral flexion to 30 bilaterally Cervical rotation equal bilaterally LTG Duration 04/27/18 Three Impairment CTSIB Shelter Goal (LTG) Pt to have at worst Moderate Sway in positions II- LTG Duration 04/27/18 Two Impairment Little Balance scale Disease And Insect Control Boss Goal (LTG) Pt to score 46/56 on Little Balance scale LTG Duration 04/27/18 One Impairment Decreased dynamic balance Disease And Insect Control Boss Goal (LTG) Pt to walk from [facility] to his appointment at [facility] without needing the use of his walking stick LTG Duration 04/27/18 Assessment Summary Assessment Pt reports feeling better today, able to balance with increased stability on the Shuttle Physical Therapy Plan Frequency and Duration Frequency of Treatment 2x/Week Duration of Treatment 10 weeks Plan of Care Start Date 02/27/18 Plan of Care End Date 05/08/18 Therapeutic Interventions Therapeutic Interventions Aquatic Therapy Balance Training Home Exercise Program Joint Mobilizations Manual Therapy Neuromuscular Re-education Patient/Caregiver Education Self-Care/Home Management Soft Tissue Mobilization Therapeutic Exercises Modalities Cold Pack/Ice Massage Hot Packs Ultrasound Next Visit Focus/Plan Next Note Type Treatment Note Next Visit Plan Cervical STM, Manual traction, Balance training
--- NOTE | 2018-03-20 11:18 | PT.OTN ---
Current Diagnoses Other abnormalities of gait and mobility (03/20/18) Physical Therapy Treatment Note PT-OP-A Visit Information Start: 12/14/17 15:21 Freq: Status: Active Protocol: Document 03/20/18 10:30 DCW (Rec: 03/20/18 11:18 DCW [id number]) Out-Patient Physical Therapy Visit Information Visit Information Visit Type Treatment Note Visit Start Time 10:30 Visit Stop Time 11:15 Total Visit Minutes 45 Visit Number 20 Number of DIRECTOR AUTOMOTIVE Visits 0 Evaluation Information Evaluation Date 12/14/17 PT-OP-B Current Condition Start: 12/14/17 15:21 Freq: Status: Active Protocol: Document 12/14/17 14:03 DCW (Rec: 12/14/17 15:47 DCW [id number]) Current Condition History of Current Condition Onset Date 8 months Current Complaints Pt has ongoing complaints of motion-induced imbalance History of Current Condition Pt is an 82 year-old male presenting with an eight month history of motion-induced imbalance. Pt was being treated at this clinic up until 11/30/17, after which he underwent a laparoscopic colon resection secondary to colon cancer. Pt was admitted to inpatient for four days following surgery, and then returned to [facility], where he has been living with his , who is suffering from dementia. Pt reports that his balance had be improving with his recent therapy, which had focused on both balance training and therapy for cervical hypertonia. Pt believes his balance issues are mainly caused by his cervical spine, and noticed a large improvement upon starting therapy for his cervical problems. Treatment Goals Patient/Caregiver Goals Pt's goal is to improve his balance Prior Functional Status Baseline Function- ADL's Modified Independent Baseline Function- Mobility Modified Independent Baseline Function- Gait Uses walking stick for stability Current Functional Impairments (Reported) Functional Limitations- Mobility/Gait Pt reports poor balance, requires an assistive device or a hand on a wall at all times. Pt has suffered multiple falls, the most recent being December last year (2016). PT-OP-C Subjective Start: 12/14/17 15:21 Freq: Status: Active Protocol: Document 03/20/18 10:30 DCW (Rec: 03/20/18 11:18 DCW [id number]) OP-PT Subjective Patient Comments Patient Comments Pt reports he is fine, but I' ve been better. PT-OP-D Balance Start: 12/14/17 15:21 Freq: Status: Active Protocol: Document 12/14/17 14:03 DCW (Rec: 12/14/17 15:47 DCW [id number]) Balance Tests Little Balance Test Little Balance Test Score 40/56 Little Impairment Rating 20 to 39% Impaired (Score 34- 44) Little Balance Assessment Evaluation Sitting to Standing Ability Independent w/out Hands Unsupported Stance Safely- 2 minutes Sitting Unsupported, Feet on Floor Safely- 2 minutes Standing to Sitting Ability Safely, Minimal Hand Use Transfer Ability Safely, Minimal Hand Use Unsupported Stance- Eyes Closed Supervision, 10 seconds Unsupported Stance- Eyes Open Supervision to maintain Reaching Forward Standing Safely, 5 inches Pick- Up Object From Floor Within 2 inches, Unable Look Behind Shoulder - Standing Shifts Weight Unilateral Turning 360 Degrees Turns slowly, but safely Unsupported Stance, Alternating Feet on 4 Steps w/Supervision Stair Unsupported Tandem Stance Assist to Step-15 seconds Unilateral Leg Stance Lifts Leg/Unable to Hold Total Score Little Total Score (out of 56 points) 40 Little Impairment Rating 20 to 39% Impaired (Score 34- 44) PT-OP-F Manual Assessment Start: 12/14/17 15:48 Freq: Status: Active Protocol: Document 12/14/17 14:03 DCW (Rec: 12/14/17 15:49 DCW [id number]) Manual Assessments Soft Tissue Assessment Soft Tissue Mobility Assessment Muscle Tone: Upper trap: R mild, L WNL Suboccibitals: R mild, L moderate Scalenes: R WNL, L moderate Paraspinals: R mild, L moderate PT-OP-K Range of Motion Start: 12/14/17 15:21 Freq: Status: Active Protocol: Document 12/14/17 14:03 DCW (Rec: 12/14/17 15:47 DCW [id number]) Cervical Spine Range of Motion Cervical Spine Active Degrees Testing Position Sitting Flexion 45 Extension 40 Rotation Left 38 Rotation Right 45 Lateral Flexion Left 25 Lateral Flexion Right 18 ROM Limitations Soft Tissue Tightness Bony Restriction PT-OP-O Vestibular Start: 12/14/17 15:21 Freq: Status: Active Protocol: Document 12/14/17 14:03 DCW (Rec: 12/14/17 15:47 DCW [id number]) Vestibular Assessment Screening Tests Vestibular Artery Screen Negative Auditory Tests Rivero Test Negative Rinne Test Negative Air Conduction Results Equal Visual Testing Smooth Pursuits Horizontal Negative Saccades Horizontal Potential mild hypometria Heave Test Positive Right Thrust Head Positive Right Vestibular Function Tests CTSIB Position 1 Mild Sway CTSIB Position 2 Moderate Sway CTSIB Position 3 Moderate Sway CTSIB Position 4 Moderate Sway CTSIB Position 5 Fall Reaction CTSIB Position 6 Fall Reaction PT-OP-Q Treatments Start: 12/14/17 15:21 Freq: Status: Active Protocol: Document 03/20/18 10:30 DCW (Rec: 03/20/18 11:18 DCW [id number]) Gym Equipment Shuttle Balance 1 Details Red Comments Wide ARMANI (Eyes open/closed, head turns), Staggered Stance Manual Therapy Treatment Soft Tissue Mobilization 3 Body Location Cervical paraspinals Mobilization Type Strumming Sustained Pressure Trigger Point Release Intensity/Depth Deep Body Position Supine 2 Body Location Suboccipitals Mobilization Type Sustained Pressure Intensity/Depth Superficial Body Position Supine 1 Body Location Upper Trap Mobilization Type Strain/Counterstrain Sustained Pressure Trigger Point Release Intensity/Depth Moderate Body Position Supine Manual Traction Cervical Body Position Supine PT-OP-T Assessment and Plan Start: 12/14/17 15:21 Freq: Status: Active Protocol: Document 03/20/18 10:30 DCW (Rec: 03/20/18 11:18 DCW [id number]) Physical Therapy Assessment Impairments Impairments Balance Coordination Vestibular Goals Five Impairment Muscle tone Short Term Goal (STG) Tone in pt's upper trap, paraspinals, suboccipitals, and scalenes shouild be at worst mild bilaterally STG Duration 03/30/17 Four Impairment Limited cervical ROM Electrician Technician Goal (LTG) Cervical lateral flexion to 30 bilaterally Cervical rotation equal bilaterally LTG Duration 04/27/18 Three Impairment CTSIB Senior Living Goal (LTG) Pt to have at worst Moderate Sway in positions II- LTG Duration 04/27/18 Two Impairment Little Balance scale Electrician Technician Goal (LTG) Pt to score 46/56 on Little Balance scale LTG Duration 04/27/18 One Impairment Decreased dynamic balance Electrician Technician Goal (LTG) Pt [facility] from [facility] to his appointment at [facility] without needing the use of his walking stick LTG Duration 04/27/18 Assessment Summary Assessment Pt showing slow progress, displaying improved stability during gait. Physical Therapy Plan Frequency and Duration Frequency of Treatment 2x/Week Duration of Treatment 10 weeks Plan of Care Start Date 02/27/18 Plan of Care End Date 05/08/18 Therapeutic Interventions Therapeutic Interventions Aquatic Therapy Balance Training Home Exercise Program Joint Mobilizations Manual Therapy Neuromuscular Re-education Patient/Caregiver Education Self-Care/Home Management Soft Tissue Mobilization Therapeutic Exercises Modalities Cold Pack/Ice Massage Hot Packs Ultrasound Next Visit Focus/Plan Next Note Type Treatment Note Next Visit Plan Cervical STM, Manual traction, Balance training
--- NOTE | 2018-04-06 12:46 | PT.OTN ---
Current Diagnoses Other abnormalities of gait and mobility (04/06/18) Physical Therapy Treatment Note PT-OP-A Visit Information Start: 12/14/17 15:21 Freq: Status: Active Protocol: Document 04/06/18 12:00 DCW (Rec: 04/06/18 12:46 DCW [id number]) Out-Patient Physical Therapy Visit Information Visit Information Visit Type Treatment Note Visit Start Time 12:00 Visit Stop Time 12:45 Total Visit Minutes 45 Visit Number 21 Number of DIET TECH Visits 0 Evaluation Information Evaluation Date 12/14/17 PT-OP-B Current Condition Start: 12/14/17 15:21 Freq: Status: Active Protocol: Document 12/14/17 14:03 DCW (Rec: 12/14/17 15:47 DCW [id number]) Current Condition History of Current Condition Onset Date 8 months Current Complaints Pt has ongoing complaints of motion-induced imbalance History of Current Condition Pt is an 82 year-old male presenting with an eight month history of motion-induced imbalance. Pt was being treated at this clinic up until 11/30/17, after which he underwent a laparoscopic colon resection secondary to colon cancer. Pt was admitted to inpatient for four days following surgery, and then returned to [facility], where he has been living with his , who is suffering from dementia. Pt reports that his balance had be improving with his recent therapy, which had focused on both balance training and therapy for cervical hypertonia. Pt believes his balance issues are mainly caused by his cervical spine, and noticed a large improvement upon starting therapy for his cervical problems. Treatment Goals Patient/Caregiver Goals Pt's goal is to improve his balance Prior Functional Status Baseline Function- ADL's Modified Independent Baseline Function- Mobility Modified Independent Baseline Function- Gait Uses walking stick for stability Current Functional Impairments (Reported) Functional Limitations- Mobility/Gait Pt reports poor balance, requires an assistive device or a hand on a wall at all times. Pt has suffered multiple falls, the most recent being December last year (2016). PT-OP-C Subjective Start: 12/14/17 15:21 Freq: Status: Active Protocol: Document 04/06/18 12:00 DCW (Rec: 04/06/18 12:46 DCW [id number]) OP-PT Subjective Patient Comments Patient Comments I think this is working, I'm just not sure how. PT-OP-D Balance Start: 12/14/17 15:21 Freq: Status: Active Protocol: Document 12/14/17 14:03 DCW (Rec: 12/14/17 15:47 DCW [id number]) Balance Tests Little Balance Test Little Balance Test Score 40/56 Little Impairment Rating 20 to 39% Impaired (Score 34- 44) Little Balance Assessment Evaluation Sitting to Standing Ability Independent w/out Hands Unsupported Stance Safely- 2 minutes Sitting Unsupported, Feet on Floor Safely- 2 minutes Standing to Sitting Ability Safely, Minimal Hand Use Transfer Ability Safely, Minimal Hand Use Unsupported Stance- Eyes Closed Supervision, 10 seconds Unsupported Stance- Eyes Open Supervision to maintain Reaching Forward Standing Safely, 5 inches Pick- Up Object From Floor Within 2 inches, Unable Look Behind Shoulder - Standing Shifts Weight Unilateral Turning 360 Degrees Turns slowly, but safely Unsupported Stance, Alternating Feet on 4 Steps w/Supervision Stair Unsupported Tandem Stance Assist to Step-15 seconds Unilateral Leg Stance Lifts Leg/Unable to Hold Total Score Little Total Score (out of 56 points) 40 Little Impairment Rating 20 to 39% Impaired (Score 34- 44) PT-OP-F Manual Assessment Start: 12/14/17 15:48 Freq: Status: Active Protocol: Document 12/14/17 14:03 DCW (Rec: 12/14/17 15:49 DCW [id number]) Manual Assessments Soft Tissue Assessment Soft Tissue Mobility Assessment Muscle Tone: Upper trap: R mild, L WNL Suboccibitals: R mild, L moderate Scalenes: R WNL, L moderate Paraspinals: R mild, L moderate PT-OP-K Range of Motion Start: 12/14/17 15:21 Freq: Status: Active Protocol: Document 12/14/17 14:03 DCW (Rec: 12/14/17 15:47 DCW [id number]) Cervical Spine Range of Motion Cervical Spine Active Degrees Testing Position Sitting Flexion 45 Extension 40 Rotation Left 38 Rotation Right 45 Lateral Flexion Left 25 Lateral Flexion Right 18 ROM Limitations Soft Tissue Tightness Bony Restriction PT-OP-O Vestibular Start: 12/14/17 15:21 Freq: Status: Active Protocol: Document 12/14/17 14:03 DCW (Rec: 12/14/17 15:47 DCW [id number]) Vestibular Assessment Screening Tests Vestibular Artery Screen Negative Auditory Tests Rivero Test Negative Rinne Test Negative Air Conduction Results Equal Visual Testing Smooth Pursuits Horizontal Negative Saccades Horizontal Potential mild hypometria Heave Test Positive Right Thrust Head Positive Right Vestibular Function Tests CTSIB Position 1 Mild Sway CTSIB Position 2 Moderate Sway CTSIB Position 3 Moderate Sway CTSIB Position 4 Moderate Sway CTSIB Position 5 Fall Reaction CTSIB Position 6 Fall Reaction PT-OP-Q Treatments Start: 12/14/17 15:21 Freq: Status: Active Protocol: Document 04/06/18 12:00 DCW (Rec: 04/06/18 12:46 DCW [id number]) Gym Equipment Shuttle Balance 1 Details Red Comments Wide ARMANI (Eyes open/closed, head turns), Staggered Stance Manual Therapy Treatment Soft Tissue Mobilization 3 Body Location Cervical paraspinals Mobilization Type Strumming Sustained Pressure Trigger Point Release Intensity/Depth Deep Body Position Supine 2 Body Location Suboccipitals Mobilization Type Sustained Pressure Intensity/Depth Superficial Body Position Supine 1 Body Location Upper Trap Mobilization Type Strain/Counterstrain Sustained Pressure Trigger Point Release Intensity/Depth Moderate Body Position Supine Manual Traction Cervical Body Position Supine PT-OP-T Assessment and Plan Start: 12/14/17 15:21 Freq: Status: Active Protocol: Document 04/06/18 12:00 DCW (Rec: 04/06/18 12:46 DCW [id number]) Physical Therapy Assessment Impairments Impairments Balance Coordination Vestibular Goals Five Impairment Muscle tone Short Term Goal (STG) Tone in pt's upper trap, paraspinals, suboccipitals, and scalenes shouild be at worst mild bilaterally STG Duration 03/30/17 Four Impairment Limited cervical ROM Transportation Aide Goal (LTG) Cervical lateral flexion to 30 bilaterally Cervical rotation equal bilaterally LTG Duration 04/27/18 Three Impairment CTSIB Transportation Aide Goal (LTG) Pt to have at worst Moderate Sway in positions II- LTG Duration 04/27/18 Two Impairment Little Balance scale Detention Goal (LTG) Pt to score 46/56 on Little Balance scale LTG Duration 04/27/18 One Impairment Decreased dynamic balance Detention Goal (LTG) Pt to walk from [facility] to his appointment at [facility] PT without needing the use of his walking stick LTG Duration 04/27/18 Assessment Summary Assessment At the conclusion of today's visit, pt reported that he had decided now would be a good time for a break from PT to see how everything goes without it. Pt is agreeable to discharge at this time, and understands that he will require a new referral in order to return. Physical Therapy Plan Frequency and Duration Frequency of Treatment 2x/Week Duration of Treatment 10 weeks Plan of Care Start Date 02/27/18 Plan of Care End Date 05/08/18 Therapeutic Interventions Therapeutic Interventions Aquatic Therapy Balance Training Home Exercise Program Joint Mobilizations Manual Therapy Neuromuscular Re-education Patient/Caregiver Education Self-Care/Home Management Soft Tissue Mobilization Therapeutic Exercises Modalities Cold Pack/Ice Massage Hot Packs Ultrasound Discharge Physical Therapy Discharge Reasons Patient Request Next Visit Focus/Plan Next Note Type Discharge Summary
== END 2018-04-09 14:54 ==
LOC: PHYS 12:00
PROVIDERS: PCP Family Medicine; Visit Provider Family Medicine
DX: R26.89 Other abnormalities of gait and mobility (principal)
CPT/HCPCS: 97112; 97140; 97162

== ENCOUNTER 2018-05-22 08:08 | Day surgery (SDC) | payer MEDICARE, SELFPAY ==
[2017-11-29 11:41] VITALS: BMI 31.1
--- NOTE | 2018-05-22 | PATH_ITS ---
[facility] Accession Number: [id number] . 01 Material submitted: . PART A: colon - COLON POLYP AT 70CM PART B: colon - COLON POLYP AT 45CM (NEAR ANASTOMOSIS) PART C: colon - COLON POLYP AT 40CM . 02 Diagnosis: A. Colon at 70 cm, Polyp: Colonic mucosa with no diagnostic abnormality, consistent with polypoid redundancy. Negative for serrated lesion, dysplasia or malignancy. . B. Colon at 45 cm, Near Anastomosis, Polyp: Colonic mucosa with mild crypt architectural distortion and minimal active inflammation; please see comment. Negative for granulomata, dysplasia or malignancy. . C. Colon at 40 cm, Polyp: Tubular adenoma. V/05/23/2018 . 02 Comment: Part B) The findings in part B are consistent with anastomotic site changes versus an inflammatory polyp. There is no evidence of dysplasia or malignancy. . 02 Electronically signed: . Mario Schroeder MD, PhD, Pathologist NPI- [id number] . 01 Gross description: . Part A: COLON POLYP AT 70CM: Received in formalin are multiple fragment(s) of dodd, soft tissue measuring 0.1 x 0.1 x 0.1 cm to 0.3 x 0.3 x 0.2 cm which is entirely submitted and submitted entirely in 1 cassette(s) Part B: COLON POLYP AT 45CM (NEAR ANASTOMOSIS): Received in formalin are multiple fragment(s) of dodd, soft tissue measuring 0.1 x 0.1 x 0.1 cm to 0.3 x 0.3 x 0.2 cm which is entirely submitted and submitted entirely in 1 cassette(s) Part C: COLON POLYP AT 40CM: Received in formalin are multiple fragment(s) of dodd, soft tissue measuring 0.1 x 0.1 x 0.1 cm to 0.2 x 0.2 x 0.2 cm which is entirely submitted and submitted entirely in 1 cassette(s) /DMC /DMC . 02 Pathologist provided ICD-10: D12.6, K63.5 . 02 CPT . 950242, 482613, 655104 Performed at: 01 [facility] [address] [address], [place], [place] [id number] MD Doug Johnson MD Phone: [phone] Performed at: [address] [facility] [id number] [place], [place] [id number] MD Fela Fleming MD Phone: [phone]
[2018-05-22] MEDS: SODIUM CHLORIDE 0.9% 1,000 ML 200 ML IV (08:31)
[2018-05-22 08:35] VITALS: BP 159/81; PULSE 69; RESP 20; TEMP 36.6; O2SAT 100; BMI 30.7
--- NOTE | 2018-05-22 10:21 | PM.HP.1 ---
History of Present Illness Date Patient Seen: 05/22/18 Time Patient Seen: 10:15 Chief complaint: [id number] COLONOSCOPY Narrative: Patient is gentleman here 6 months after resection of a large cancer there was altered and resection of his portion of his transverse and descending colon. He is here for surveillance exam. Patient History Medical History Colon cancer (Acute) BPH with urinary obstruction (Acute) Depression (Acute) Diarrhea (Acute) Edema (Acute) Hearing loss (Acute) History of echocardiogram (Acute ~06/2016) History of fracture as a child (Acute) History of left heart catheterization (Acute ~11/2015) History of syncope (Acute) Mitral regurgitation (Acute) 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 (Acute) Obese (Acute) Retention of urine (Acute) Sensory ataxia (Acute) Tear meniscus knee (Acute) V-tach (Acute) AICD (automatic cardioverter/defibrillator) present (Chronic ~07/05/13) Diabetes mellitus (Chronic) Hyperlipidemia (Chronic) Hypertension (Chronic) Pacemaker (Chronic) Peripheral neuropathy (Chronic) Vertigo (Chronic) Colon polyps (Resolved) Surgical History History of colonoscopy with polypectomy (Acute) History of prostate surgery (Acute) History of tonsillectomy (Acute) History of umbilical hernia repair (Acute) S/P partial colectomy (Acute) Implantable cardioverter-defibrillator (ICD) in situ (Resolved) Presence of cardiac pacemaker (Resolved) Family History Father SD (myocardial infarction) Social History household members: spouse Smoking Status: Former smoker alcohol intake: current Family & Social History Family History Father SD (myocardial infarction) Social History: household members spouse Tobacco & Substance use: Smoking Status Former smoker alcohol intake current alcohol intake frequency 0-2 drinks per day Substance Use Type former substance user Meds Home Medications Medication Instructions Recorded Confirmed Type atorvastatin 20 mg tablet 20 mg PO HS #90 tab 08/11/17 05/09/18 Rx erythromycin 500 mg tablet See Rx Instructions PO .COMPLEX #6 11/15/17 05/09/18 Rx tab-cap carvedilol 6.25 mg PO BID 11/20/17 05/09/18 History losartan-hydrochlorothiazide 1 tab PO DAILY 11/20/17 05/09/18 History Disabled Parking Permit 1 ea MISCELLANEOUS DIRECTED 11/24/17 05/09/18 History acetaminophen 650 mg PO Q6HR PRN #60 tab 11/27/17 05/09/18 Rx gabapentin [Neurontin] 300 mg PO BID #30 cap 11/27/17 05/09/18 Rx oxycodone 5 mg PO Q4-6H PRN #14 each 11/27/17 05/09/18 Rx cinnamon bark 500 mg capsule 500 mg PO BID #60 cap 12/14/17 05/09/18 Rx potassium chloride ER 10 mEq 10 meq PO QDAY #90 tab 01/17/18 05/09/18 Rx capsule,extended release amlodipine 2.5 mg tablet 2.5 mg PO DAILY #30 tab 01/29/18 05/09/18 Rx multivitamin-iron 9 mg-folic acid 1 tab PO QDAY #90 tab 02/16/18 05/09/18 Rx 400 mcg-calcium and minerals tablet tamsulosin 0.4 mg capsule 0.4 mg PO DAILY #90 cap 03/23/18 05/09/18 Rx Allergies Allergy/AdvReac Type Severity Reaction Status Date / Time No Known Drug Allergies Allergy Verified 05/22/18 08:49 Review of Systems Review of Systems All systems reviewed & are unremarkable except as noted in HPI and below Cardiovascular Comments: Has a defibrillator pacemaker. Gastrointestinal Comments: Stool as been intermittently loose and normal. He states it has finally been normalizing recently. Musculoskeletal Comments: Arthritis Exam Vital Signs (past 8 hours): - 05/22/18 08:35 Temperature 98 F Pulse Rate 69 Respiratory Rate 20 Blood Pressure 159/81 H Pulse Oximetry 100 Oxygen Delivery Method Room Air Narrative Exam Narrative: Co Operative no apparent distress. Lungs are clear to auscultation no rales or rhonchi. Heart regular rate and rhythm without murmur gallop. Abdomen is mildly protuberant and soft. No mass or tenderness. No obvious incisional hernia. Scars in the upper/mid abdomen Assessment & Plan Assessment & Plan narrative: History of stage I colon cancer. Will proceed to colonoscopy. I have discussed the procedure and the rationale with the patient including risks of bleeding, perforation which would necessitate a major operation, failure to find remove all lesions and the potential to tattoo. They appeared to understand and wished to proceed.
--- NOTE | 2018-05-22 10:25 | PM.PREOP ---
Pre-operative Note Interval Note History & Physical reviewed/Exam performed by Physician: Yes Changes to H&P: No ASA Class (for procedural sedation): III
[2018-05-22] MEDS: MIDAZOLAM 5 MG/5 ML VIAL IV (10:54)
[2018-05-22] MEDS: fentaNYL 250 MCG/5 ML INJ IV (10:54)
--- NOTE | 2018-05-22 10:56 | PM.OP.ENDO ---
Operative Date/Time/Diagnoses Date of procedure: 05/22/18 Time of procedure: 10:56 Pre-op diagnosis: History of colon cancer Post-op diagnosis: same (Multiple polyps) Procedure & Clinicians Study performed: Colonoscopy with cold biopsy Same procedure as scheduled: Yes Indications: Postop surveillance at 6 months Surgeon: Sami Burgess Procedure Notes SCOAP/Timeout: Performed Procedure in detail: The patient was placed in the left lateral decubitus position and underwent IV sedation directed by the surgeon consisting of fentanyl and Versed. Digital exam was unremarkable. If he has a prostate it is diminutive. The scope was inserted and advanced through the rectum into the sigmoid, remaining descending, transverse, and ascending colon. The cecum was reached identified by the ileocecal valve and the appendiceal opening. The scope was gradually brought out. Polyps were found at 70 cm, 45 cm(location of the anastomosis), AND 40 CM. The anastomosis appeared to be an end-to-end anastomosis . The scope ultimately was retroflexed in the rectum. The appearance was normal. The scope was removed and the patient tolerated the procedure well. prep was very good Scope withdrawal time: 14.5 minutes Sedation minutes: 27 Findings: diverticulosis (Occasional sigmoid) and polyp (Multiple) Specimen(s): other (Polyps) Complications: none Recommendations: Colonscopy in 1 year (If the lesion at the anastomosis is neoplastic, I would repeat the exam in 6 months) Follow up: as needed Disposition: PACU
[2018-05-22 11:03] VITALS: BP 133/62; PULSE 65; RESP 16; TEMP 36.7; O2SAT 98
--- NOTE | 2018-05-22 11:07 | SUR.PHASEI ---
awake on arrival stable pacu
[2018-05-22 11:25] VITALS: BP 131/72; PULSE 59; TEMP 35.9; O2SAT 98
== END 2018-05-22 11:44 | disposition home or self-care (01) ==
PROVIDERS: PCP Family Medicine; Visit Provider Specialist
PROC: 0DJD8ZZ Inspection of Lower Intestinal Tract, Via Natural or Artificial Opening Endoscopic (ICD-10-PCS; CPT 45378; principal; 2018-05-22 09:45)
DX: Z85.038 Personal history of other malignant neoplasm of large intestine (principal); K57.30 Diverticulosis of large intestine without perforation or abscess without bleeding; I10 Essential (primary) hypertension; Z95.0 Presence of cardiac pacemaker; E78.5 Hyperlipidemia, unspecified; E11.9 Type 2 diabetes mellitus without complications; N40.1 Benign prostatic hyperplasia with lower urinary tract symptoms; N13.8 Other obstructive and reflux uropathy; Z87.891 Personal history of nicotine dependence; D12.6 Benign neoplasm of colon, unspecified
CPT/HCPCS: 45380; 88305; 99152; 99153; J2250; J3010

== ENCOUNTER → 2018-10-16 15:58 | Outpatient (CLI) | payer MEDICARE, SELFPAY ==
[2017-11-29 11:41] VITALS: BMI 31.1
[2018-10-16 17:45] LABS: BUN Creatinine Ratio 16.7 (6-22); Blood Urea Nitrogen 15 mg/dL (9-20); Calcium 9.2 mg/dL (8.4-10.2); Carbon Dioxide 30 mmol/L (22-32); Chloride 103 mmol/L (98-107); Estimated Glomerular Filt Rate > 60.0 mL/min (>60); Glucose 115 mg/dL (80-110); HEMOLYSIS < 15 (0-50); Potassium 4.2 mmol/L (3.4-5.1); Sodium 141 mmol/L (137-145)
== END ==
PROVIDERS: PCP Family Medicine; Visit Provider Internal Medicine Cardiovascular Disease
DX: I42.8 Other cardiomyopathies (principal)
CPT/HCPCS: 36415; 80048

== ENCOUNTER 2018-11-15 13:45 | Outpatient (RCR) | payer MEDICARE, SELFPAY ==
[2017-11-29 11:41] VITALS: BMI 31.1
--- NOTE | 2018-09-12 17:30 | PT.OIE ---
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 (Acute) Obese (Acute) Retention of urine (Acute) Sensory ataxia (Acute) Tear meniscus knee (Acute) V-tach (Acute) AICD (automatic cardioverter/defibrillator) present (Chronic ~07/05/13) Diabetes mellitus (Chronic) Hyperlipidemia (Chronic) Hypertension (Chronic) Pacemaker (Chronic) Peripheral neuropathy (Chronic) Vertigo (Chronic) Colon polyps (Resolved) Past Surgical History (Last Reviewed 08/15/18 @ 16:30 by Sinai Chavis MD) History of colonoscopy with polypectomy (Acute) History of prostate surgery (Acute) History of tonsillectomy (Acute) History of umbilical hernia repair (Acute) S/P partial colectomy (Acute) Implantable cardioverter-defibrillator (ICD) in situ (Resolved) Presence of cardiac pacemaker (Resolved) Provider Visit Care Team Role Provider Type Aniyah Feliciano MD Attending Provider Physician Primary Care Provider Specialty: Family Practice Address: [address] [place] [address] Email: [email or web address] Physical Therapy Initial Evaluation PT-OP-A Visit Information Start: 09/12/18 17:38 Freq: Status: Active Protocol: Document 09/12/18 16:45 DCW (Rec: 09/12/18 17:54 DCW [id number]) Out-Patient Physical Therapy Visit Information Visit Information Visit Type Initial Evaluation Visit Start Time 16:45 Visit Stop Time 17:30 Total Visit Minutes 45 Visit Number 1 Number of ROLL PANNER Visits 0 Evaluation Information Evaluation Date 09/12/18 PT-OP-B Current Condition Start: 09/12/18 17:38 Freq: Status: Active Protocol: Document 09/12/18 16:45 DCW (Rec: 09/12/18 17:54 DCW [id number]) Current Condition History of Current Condition Onset Date Multi-year history Current Complaints Imbalance, fatigue History of Current Condition Pt is an 82 year old male with a long-standing history with this clinic. Pt has previously been treated for generalized imbalance and fatigue. Pt has a vague sense of imbalance that has thus far been unable to have been diagnosed by multiple specialists, and he describes as feeling off balance with fuzzy vision. When pt had been treated at this clinic previously, there was some progress made with working on decreasing his cervical tone and balance training. Pt notes that he wants to see if all the progress I made last time is still there, or if I've declined at all. Pt admits that he has not been taking good care of himself, and has been focused on his as she has declined with her dementia. Pt notes that just today, his moved out of their shared apartment in [facility] to go to a memory care clinic in [place]. Pt admits that he is not thrilled about it, and didn't have any say in the timing of any of this. Pt reports that he always has his walking stick with him when he is out of his apartment, and admits that he is unable to walk very far due to fatigue. Prior Treatments and Tests History of multiple rounds of physical therapy at this clinic with varied results Treatment Goals Patient/Caregiver Goals Pt wants to improve his balance and activity tolerance Prior Functional Status Baseline Function- ADL's Needs Assist Baseline Function- Mobility Needs Assist Current Functional Impairments (Reported) Functional Limitations- Mobility/Gait Pt uses a walking stick and has a poor consistance to his path deviation. Pt reports that sometimes his balance feels better if his glasses are off, but not all the time. Personal Factors Other Personal Factors That May Effect Recently placed on Therapy/Recovery antidepressants due to his 's decline, Neuropathy, CHF, Pacemaker PT-OP-C Subjective Start: 09/12/18 17:38 Freq: Status: Active Protocol: Document 09/12/18 16:45 DCW (Rec: 09/12/18 17:54 DCW [id number]) OP-PT Subjective Patient Comments Patient Comments I haven't been walking at all . I know. Bad, bad, bad. Patient Reported Progress Worse Patient Questionnaires Foot & Ankle Ability Measure- ADL and Sports FAAM-ADL Score 24/ = 28.57 FAAM-ADL Impairment 60 to 79% Impaired (Score 16- 32) Lower Extremity Functional Scale LEFS Score = 26.25 LEFS Impairment 60 to 79% Impaired (Score 17- 31) OP-PT Pain Assessment Pain Assessment Grid Paper Pain Assessment Grid Completed Yes: No pain PT-OP-D Balance Start: 09/12/18 17:38 Freq: Status: Active Protocol: Document 09/12/18 16:45 DCW (Rec: 09/13/18 09:36 DCW [id number]) Balance Tests Little Balance Test Little Balance Test Score 36/56 Little Impairment Rating 20 to 39% Impaired (Score 34- 44) Little Balance Assessment Evaluation Sitting to Standing Ability Independent w/Hands Unsupported Stance 30 seconds Sitting Unsupported, Feet on Floor Safely- 2 minutes Standing to Sitting Ability Safely, Minimal Hand Use Transfer Ability Safely, Minimal Hand Use Unsupported Stance- Eyes Closed Safely, 10 seconds Unsupported Stance- Eyes Open Supervision to maintain Reaching Forward Standing Safely, 5 inches Pick- Up Object From Floor Requires Supervision Look Behind Shoulder - Standing Shifts Weight Unilateral Turning 360 Degrees Turns slowly, but safely Unsupported Stance, Alternating Feet on Assist to Prevent Fall Stair Unsupported Tandem Stance Small Step- 30 seconds Unilateral Leg Stance Lifts Leg/Unable to Hold Total Score Little Total Score (out of 56 points) 36 Little Impairment Rating 20 to 39% Impaired (Score 34- 44) PT-OP-E Functional Tests Start: 09/12/18 17:38 Freq: Status: Active Protocol: Document 09/12/18 16:45 DCW (Rec: 09/13/18 09:36 DCW [id number]) Functional Tests 6 Minute Walk Test Distance 349 Device Used walking stick Comments stopped after 2:58, one standing rest break Timed Up and Go (TUG) Score 22.71 Comments 3-trial average (22.79, 23.19, 22.15) TUG Impairment Rating 100% Impaired (Score 20) PT-OP-F Manual Assessment Start: 09/12/18 17:38 Freq: Status: Active Protocol: Document 09/12/18 16:45 DCW (Rec: 09/13/18 09:36 DCW [id number]) Manual Assessments Soft Tissue Assessment Soft Tissue Mobility Assessment Moderate tone bilateral levator, bilateral upper trap, bilateral SCM, R>L PT-OP-K Range of Motion Start: 09/12/18 17:38 Freq: Status: Active Protocol: Document 09/12/18 16:45 DCW (Rec: 09/13/18 09:38 DCW [id number]) Cervical Spine Range of Motion Cervical Spine Active Degrees Testing Position Sitting Flexion 45 Extension 50 Rotation Left 70 Rotation Right 62 Lateral Flexion Left 23 Lateral Flexion Right 25 ROM Limitations Soft Tissue Tightness Bony Restriction Muscle Tone PT-OP-M Strength Start: 09/12/18 17:38 Freq: Status: Active Protocol: Document 09/12/18 16:45 DCW (Rec: 09/13/18 09:38 DCW [id number]) Hip Strength Hip Manual Muscle Testing Right Flexion (L2) 4 Good Abduction 4 Good Adduction 4 Good External Rotation 4 Good Internal Rotation 4 Good Left Flexion (L2) 4+ Good+ Abduction 4+ Good+ Adduction 4+ Good+ External Rotation 4+ Good+ Internal Rotation 4+ Good+ Knee Strength Knee Manual Muscle Testing Right Flexion (S2) 4 Good Extension (L3) 4- Good- Left Flexion (S2) 4+ Good+ Extension (L3) 4 Good PT-OP-T Assessment and Plan Start: 09/12/18 17:38 Freq: Status: Active Protocol: Document 09/12/18 16:45 DCW (Rec: 09/13/18 10:52 DCW [id number]) Physical Therapy Assessment Rehab Potential Rehabilitation Potential Fair Evaluation Complexity Number of Personal Factors/Comorbidities 1-2 Number of Body Systems Impaired 4 or More Clinical Presentation at Evaluation Unstable Impairments Impairments Activity Tolerance Balance Gait ROM Soft Tissue Mobility Strength Other Concerns Fall Risk Yes, per TUG (20+ seconds) and Little (36/56) Barriers to Rehabilitation Chronicity of condition Goals Five Impairment Moderate muscle tone in bilateral levator, upper trap, SCM Short Term Goal (STG) Tone in pt's upper trap, levator, and SCM should be at worst mild bilaterally STG Duration 10/13/18 Four Impairment Limited cervical ROM Alf Goal (LTG) Cervical lateral flexion to 35 ? bilaterally LTG Duration 11/12/18 Three Impairment Pt unable to complete six minute walk test. Ambulates a total of 349' Alf Goal (LTG) Pt to complete 6 MWT with an overall speed of at least 1.97 ft/sec (total of 709'). A speed slower than that indicates future functional decline in older adults. Two Impairment Pt at an increased falls risk Short Term Goal (STG) Pt to complete TUG with a three-trial average of 15 seconds STG Duration 10/13/18 Alf Goal (LTG) Pt to score 46/56 on Little Balance scale LTG Duration 11/12/18 One Impairment Pt reports a generalized feeling of imbalance when walking Alf Goal (LTG) Pt to tolerate walk from [facility] to his appointment at [facility] PT without requiring a rest break LTG Duration 11/12/18 Assessment Summary Assessment Pt presents with similar symptoms to what he has previously been seen at this clinic for in the past. Pt has a generalized, poorly-defined sensation of imbalance and fuzzy vision, which is sometimes randomly better, but is present most of the time. Pt also has declined in activity function since he was seen in the earlier this year , as he used to be able to ambulate over from his apartment at [facility] to the clinic, but now has to take a rest break after three minutes of walking. As pt did appear to benefit from cervical STM and a flexibility program during his last course of rehab, therapy should again focus on reducing the tone of his cervical musculature, as well as strength, activity tolerance, and balance. Physical Therapy Plan Frequency and Duration Frequency of Treatment 2x/Week Duration of Treatment 10 weeks Plan of Care Start Date 09/12/18 Plan of Care End Date 11/21/18 Therapeutic Interventions Therapeutic Interventions Aquatic Therapy Balance Training Home Exercise Program Joint Mobilizations Manual Therapy Neuromuscular Re-education Patient/Caregiver Education Self-Care/Home Management Soft Tissue Mobilization Therapeutic Activities Therapeutic Exercises Modalities Cold Pack/Ice Massage Electric Stimulation Hot Packs Next Visit Focus/Plan Next Note Type Treatment Note Next Visit Plan STM to cervical musculature, balance training, increased activity tolerance
--- NOTE | 2018-09-12 17:30 | PT.OPPOC ---
Current Diagnoses Muscle weakness (generalized) (09/12/18) Other abnormalities of gait and mobility (09/12/18) Other fatigue (09/12/18) Provider Visit Care Team Role Provider Type Aniyah Feliciano MD Attending Provider Physician Primary Care Provider Specialty: Family Practice Address: [address] [place] [address], [address] Email: [email or web address] Plan Of Care PT-OP-T Assessment and Plan Start: 09/12/18 17:38 Freq: Status: Active Protocol: Document 09/12/18 16:45 DCW (Rec: 09/13/18 10:52 DCW [id number]) Physical Therapy Assessment Rehab Potential Rehabilitation Potential Fair Evaluation Complexity Number of Personal Factors/Comorbidities 1-2 Number of Body Systems Impaired 4 or More Clinical Presentation at Evaluation Unstable Impairments Impairments Activity Tolerance Balance Gait ROM Soft Tissue Mobility Strength Other Concerns Fall Risk Yes, per TUG (20+ seconds) and Little (36/56) Barriers to Rehabilitation Chronicity of condition Goals Five Impairment Moderate muscle tone in bilateral levator, upper trap, SCM Short Term Goal (STG) Tone in pt's upper trap, levator, and SCM should be at worst mild bilaterally STG Duration 10/13/18 Four Impairment Limited cervical ROM Brass Burnisher Goal (LTG) Cervical lateral flexion to 35 ? bilaterally LTG Duration 11/12/18 Three Impairment Pt unable to complete six minute walk test. Ambulates a total of 349' Brass Burnisher Goal (LTG) Pt to complete 6 MWT with an overall speed of at least 1.97 ft/sec (total of 709'). A speed slower than that indicates future functional decline in older adults. Two Impairment Pt at an increased falls risk Short Term Goal (STG) Pt to complete TUG with a three-trial average of 15 seconds STG Duration 10/13/18 Correction Goal (LTG) Pt to score 46/56 on Little Balance scale LTG Duration 11/12/18 One Impairment Pt reports a generalized feeling of imbalance when walking Brass Burnisher Goal (LTG) Pt to tolerate walk from [facility] to his appointment at [facility] PT without requiring a rest break LTG Duration 11/12/18 Assessment Summary Assessment Pt presents with similar symptoms to what he has previously been seen at this clinic for in the past. Pt has a generalized, poorly-defined sensation of imbalance and fuzzy vision, which is sometimes randomly better, but is present most of the time. Pt also has declined in activity function since he was seen in the earlier this year , as he used to be able to ambulate over from his apartment at [facility] to the clinic, but now has to take a rest break after three minutes of walking. As pt did appear to benefit from cervical STM and a flexibility program during his last course of rehab, therapy should again focus on reducing the tone of his cervical musculature, as well as strength, activity tolerance, and balance. Physical Therapy Plan Frequency and Duration Frequency of Treatment 2x/Week Duration of Treatment 10 weeks Plan of Care Start Date 09/12/18 Plan of Care End Date 11/21/18 Therapeutic Interventions Therapeutic Interventions Aquatic Therapy Balance Training Home Exercise Program Joint Mobilizations Manual Therapy Neuromuscular Re-education Patient/Caregiver Education Self-Care/Home Management Soft Tissue Mobilization Therapeutic Activities Therapeutic Exercises Modalities Cold Pack/Ice Massage Electric Stimulation Hot Packs Next Visit Focus/Plan Next Note Type Treatment Note Next Visit Plan STM to cervical musculature, balance training, increased activity tolerance Plan of Care Dates Plan of Care Start Date 09/12/18 Plan of Care End Date 11/21/18 Please Sign and Return: I have reviewed this Plan of Care and certify that the skilled therapy services above are required to meet the patient?s needs. Physician Signature Date Printed Name and Credentials Clinical Instructor Signature Printed Name and Credentials
--- NOTE | 2018-09-17 11:59 | PT.OTN ---
Current Diagnoses Muscle weakness (generalized) (09/17/18) Other abnormalities of gait and mobility (09/17/18) Other fatigue (09/17/18) Physical Therapy Treatment Note PT-OP-A Visit Information Start: 09/12/18 17:38 Freq: Status: Active Protocol: Document 09/17/18 11:15 DCW (Rec: 09/17/18 11:58 DCW [id number]) Out-Patient Physical Therapy Visit Information Visit Information Visit Type Treatment Note Visit Start Time 11:15 Visit Stop Time 12:00 Total Visit Minutes 45 Visit Number 2 Number of SLIVER LAP TENDER Visits 0 Evaluation Information Evaluation Date 09/12/18 PT-OP-B Current Condition Start: 09/12/18 17:38 Freq: Status: Active Protocol: Document 09/12/18 16:45 DCW (Rec: 09/12/18 17:54 DCW [id number]) Current Condition History of Current Condition Onset Date Multi-year history Current Complaints Imbalance, fatigue History of Current Condition Pt is an 82 year old male with a long-standing history with this clinic. Pt has previously been treated for generalized imbalance and fatigue. Pt has a vague sense of imbalance that has thus far been unable to have been diagnosed by multiple specialists, and he describes as feeling off balance with fuzzy vision. When pt had been treated at this clinic previously, there was some progress made with working on decreasing his cervical tone and balance training. Pt notes that he wants to see if all the progress I made last time is still there, or if I've declined at all. Pt admits that he has not been taking good care of himself, and has been focused on his as she has declined with her dementia. Pt notes that just today, his moved out of their shared apartment in [facility] to go to a memory care clinic in [place]. Pt admits that he is not thrilled about it, and didn't have any say in the timing of any of this. Pt reports that he always has his walking stick with him when he is out of his apartment, and admits that he is unable to walk very far due to fatigue. Prior Treatments and Tests History of multiple rounds of physical therapy at this clinic with varied results Treatment Goals Patient/Caregiver Goals Pt wants to improve his balance and activity tolerance Prior Functional Status Baseline Function- ADL's Needs Assist Baseline Function- Mobility Needs Assist Current Functional Impairments (Reported) Functional Limitations- Mobility/Gait Pt uses a walking stick and has a poor consistance to his path deviation. Pt reports that sometimes his balance feels better if his glasses are off, but not all the time. Personal Factors Other Personal Factors That May Effect Recently placed on Therapy/Recovery antidepressants due to his 's decline, Neuropathy, CHF, Pacemaker PT-OP-C Subjective Start: 09/12/18 17:38 Freq: Status: Active Protocol: Document 09/17/18 11:15 DCW (Rec: 09/17/18 11:58 DCW [id number]) OP-PT Subjective Patient Comments Patient Comments Pt reports that he woke up with a slight pain in his right low back, which is unusual for him, but it isn't anything too serious. PT-OP-D Balance Start: 09/12/18 17:38 Freq: Status: Active Protocol: Document 09/12/18 16:45 DCW (Rec: 09/13/18 09:36 DCW [id number]) Balance Tests Little Balance Test Little Balance Test Score 36/56 Little Impairment Rating 20 to 39% Impaired (Score 34- 44) Little Balance Assessment Evaluation Sitting to Standing Ability Independent w/Hands Unsupported Stance 30 seconds Sitting Unsupported, Feet on Floor Safely- 2 minutes Standing to Sitting Ability Safely, Minimal Hand Use Transfer Ability Safely, Minimal Hand Use Unsupported Stance- Eyes Closed Safely, 10 seconds Unsupported Stance- Eyes Open Supervision to maintain Reaching Forward Standing Safely, 5 inches Pick- Up Object From Floor Requires Supervision Look Behind Shoulder - Standing Shifts Weight Unilateral Turning 360 Degrees Turns slowly, but safely Unsupported Stance, Alternating Feet on Assist to Prevent Fall Stair Unsupported Tandem Stance Small Step- 30 seconds Unilateral Leg Stance Lifts Leg/Unable to Hold Total Score Little Total Score (out of 56 points) 36 Little Impairment Rating 20 to 39% Impaired (Score 34- 44) PT-OP-E Functional Tests Start: 09/12/18 17:38 Freq: Status: Active Protocol: Document 09/12/18 16:45 DCW (Rec: 09/13/18 09:36 DCW [id number]) Functional Tests 6 Minute Walk Test Distance 349 Device Used walking stick Comments stopped after 2:58, one standing rest break Timed Up and Go (TUG) Score 22.71 Comments 3-trial average (22.79, 23.19, 22.15) TUG Impairment Rating 100% Impaired (Score 20) PT-OP-F Manual Assessment Start: 09/12/18 17:38 Freq: Status: Active Protocol: Document 09/12/18 16:45 DCW (Rec: 09/13/18 09:36 DCW [id number]) Manual Assessments Soft Tissue Assessment Soft Tissue Mobility Assessment Moderate tone bilateral levator, bilateral upper trap, bilateral SCM, R>L PT-OP-K Range of Motion Start: 09/12/18 17:38 Freq: Status: Active Protocol: Document 09/12/18 16:45 DCW (Rec: 09/13/18 09:38 DCW [id number]) Cervical Spine Range of Motion Cervical Spine Active Degrees Testing Position Sitting Flexion 45 Extension 50 Rotation Left 70 Rotation Right 62 Lateral Flexion Left 23 Lateral Flexion Right 25 ROM Limitations Soft Tissue Tightness Bony Restriction Muscle Tone PT-OP-M Strength Start: 09/12/18 17:38 Freq: Status: Active Protocol: Document 09/12/18 16:45 DCW (Rec: 09/13/18 09:38 DCW [id number]) Hip Strength Hip Manual Muscle Testing Right Flexion (L2) 4 Good Abduction 4 Good Adduction 4 Good External Rotation 4 Good Internal Rotation 4 Good Left Flexion (L2) 4+ Good+ Abduction 4+ Good+ Adduction 4+ Good+ External Rotation 4+ Good+ Internal Rotation 4+ Good+ Knee Strength Knee Manual Muscle Testing Right Flexion (S2) 4 Good Extension (L3) 4- Good- Left Flexion (S2) 4+ Good+ Extension (L3) 4 Good PT-OP-Q Treatments Start: 09/12/18 17:38 Freq: Status: Active Protocol: Document 09/17/18 11:15 DCW (Rec: 09/17/18 11:58 DCW [id number]) Cardio Equipment Recumbent Elliptical (Biodex) Duration (Minutes) 5 Resistance 4 Seat Position 13 Gym Equipment Shuttle Recovery Unilateral Squats Resistance 37# Shuttle Recovery Platform Stable Bilateral Squats Resistance 75# Shuttle Recovery Platform Stable Manual Therapy Treatment Soft Tissue Mobilization 3 Body Location Cervical paraspinals Mobilization Type Strumming Sustained Pressure Trigger Point Release Intensity/Depth Deep Body Position Supine 2 Body Location Suboccipitals Mobilization Type Sustained Pressure Intensity/Depth Superficial Body Position Supine 1 Body Location Upper Trap Mobilization Type Strain/Counterstrain Sustained Pressure Trigger Point Release Intensity/Depth Moderate Body Position Supine Manual Traction Cervical Body Position Supine PT-OP-T Assessment and Plan Start: 09/12/18 17:38 Freq: Status: Active Protocol: Document 09/17/18 11:15 DCW (Rec: 09/17/18 11:58 DCW [id number]) Physical Therapy Assessment Impairments Impairments Activity Tolerance Balance Gait ROM Soft Tissue Mobility Strength Goals Five Impairment Moderate muscle tone in bilateral levator, upper trap, SCM Short Term Goal (STG) Tone in pt's upper trap, levator, and SCM should be at worst mild bilaterally STG Duration 10/13/18 Four Impairment Limited cervical ROM Spring Tier Goal (LTG) Cervical lateral flexion to 35 ? bilaterally LTG Duration 11/12/18 Three Impairment Pt unable to complete six minute walk test. Ambulates a total of 349' Group Home Goal (LTG) Pt to complete 6 MWT with an overall speed of at least 1.97 ft/sec (total of 709'). A speed slower than that indicates future functional decline in older adults. Two Impairment Pt at an increased falls risk Short Term Goal (STG) Pt to complete TUG with a three-trial average of 15 seconds STG Duration 10/13/18 Spring Tier Goal (LTG) Pt to score 46/56 on Little Balance scale LTG Duration 11/12/18 One Impairment Pt reports a generalized feeling of imbalance when walking Spring Tier Goal (LTG) Pt to tolerate walk from [facility] to his appointment at [facility] PT without requiring a rest break LTG Duration 11/12/18 Assessment Summary Assessment Pt felt much better following treatment session, claimed his vision seemed to be clearer, and felt more stable when walking out of the clinic. Physical Therapy Plan Frequency and Duration Frequency of Treatment 2x/Week Duration of Treatment 10 weeks Plan of Care Start Date 09/12/18 Plan of Care End Date 11/21/18 Therapeutic Interventions Therapeutic Interventions Aquatic Therapy Balance Training Home Exercise Program Joint Mobilizations Manual Therapy Neuromuscular Re-education Patient/Caregiver Education Self-Care/Home Management Soft Tissue Mobilization Therapeutic Activities Therapeutic Exercises Modalities Cold Pack/Ice Massage Electric Stimulation Hot Packs Next Visit Focus/Plan Next Note Type Treatment Note Next Visit Plan STM to cervical musculature, balance training, increased activity tolerance
--- NOTE | 2018-09-19 11:27 | PT.OTN ---
Current Diagnoses Muscle weakness (generalized) (09/17/18) Other abnormalities of gait and mobility (09/17/18) Other fatigue (09/17/18) Physical Therapy Treatment Note PT-OP-A Visit Information Start: 09/12/18 17:38 Freq: Status: Active Protocol: Document 09/19/18 10:45 DCW (Rec: 09/19/18 11:27 DCW [id number]) Out-Patient Physical Therapy Visit Information Visit Information Visit Type Treatment Note Visit Note Pt arrived 15 minutes late Visit Start Time 10:45 Visit Stop Time 11:30 Total Visit Minutes 45 Visit Number 3 Number of AUTOMOBILE RENTAL AGENT Visits 0 Evaluation Information Evaluation Date 09/12/18 PT-OP-B Current Condition Start: 09/12/18 17:38 Freq: Status: Active Protocol: Document 09/12/18 16:45 DCW (Rec: 09/12/18 17:54 DCW [id number]) Current Condition History of Current Condition Onset Date Multi-year history Current Complaints Imbalance, fatigue History of Current Condition Pt is an 82 year old male with a long-standing history with this clinic. Pt has previously been treated for generalized imbalance and fatigue. Pt has a vague sense of imbalance that has thus far been unable to have been diagnosed by multiple specialists, and he describes as feeling off balance with fuzzy vision. When pt had been treated at this clinic previously, there was some progress made with working on decreasing his cervical tone and balance training. Pt notes that he wants to see if all the progress I made last time is still there, or if I've declined at all. Pt admits that he has not been taking good care of himself, and has been focused on his as she has declined with her dementia. Pt notes that just today, his moved out of their shared apartment in [facility] to go to a memory care clinic in [place]. Pt admits that he is not thrilled about it, and didn't have any say in the timing of any of this. Pt reports that he always has his walking stick with him when he is out of his apartment, and admits that he is unable to walk very far due to fatigue. Prior Treatments and Tests History of multiple rounds of physical therapy at this clinic with varied results Treatment Goals Patient/Caregiver Goals Pt wants to improve his balance and activity tolerance Prior Functional Status Baseline Function- ADL's Needs Assist Baseline Function- Mobility Needs Assist Current Functional Impairments (Reported) Functional Limitations- Mobility/Gait Pt uses a walking stick and has a poor consistance to his path deviation. Pt reports that sometimes his balance feels better if his glasses are off, but not all the time. Personal Factors Other Personal Factors That May Effect Recently placed on Therapy/Recovery antidepressants due to his 's decline, Neuropathy, CHF, Pacemaker PT-OP-C Subjective Start: 09/12/18 17:38 Freq: Status: Active Protocol: Document 09/19/18 10:45 DCW (Rec: 09/19/18 11:27 DCW [id number]) OP-PT Subjective Patient Comments Patient Comments I think I'm better. It my just be an illusion, but I feel better. PT-OP-D Balance Start: 09/12/18 17:38 Freq: Status: Active Protocol: Document 09/12/18 16:45 DCW (Rec: 09/13/18 09:36 DCW [id number]) Balance Tests Little Balance Test Little Balance Test Score 36/56 Little Impairment Rating 20 to 39% Impaired (Score 34- 44) Little Balance Assessment Evaluation Sitting to Standing Ability Independent w/Hands Unsupported Stance 30 seconds Sitting Unsupported, Feet on Floor Safely- 2 minutes Standing to Sitting Ability Safely, Minimal Hand Use Transfer Ability Safely, Minimal Hand Use Unsupported Stance- Eyes Closed Safely, 10 seconds Unsupported Stance- Eyes Open Supervision to maintain Reaching Forward Standing Safely, 5 inches Pick- Up Object From Floor Requires Supervision Look Behind Shoulder - Standing Shifts Weight Unilateral Turning 360 Degrees Turns slowly, but safely Unsupported Stance, Alternating Feet on Assist to Prevent Fall Stair Unsupported Tandem Stance Small Step- 30 seconds Unilateral Leg Stance Lifts Leg/Unable to Hold Total Score Little Total Score (out of 56 points) 36 Little Impairment Rating 20 to 39% Impaired (Score 34- 44) PT-OP-E Functional Tests Start: 09/12/18 17:38 Freq: Status: Active Protocol: Document 09/12/18 16:45 DCW (Rec: 09/13/18 09:36 DCW [id number]) Functional Tests 6 Minute Walk Test Distance 349 Device Used walking stick Comments stopped after 2:58, one standing rest break Timed Up and Go (TUG) Score 22.71 Comments 3-trial average (22.79, 23.19, 22.15) TUG Impairment Rating 100% Impaired (Score 20) PT-OP-F Manual Assessment Start: 09/12/18 17:38 Freq: Status: Active Protocol: Document 09/12/18 16:45 DCW (Rec: 09/13/18 09:36 DCW [id number]) Manual Assessments Soft Tissue Assessment Soft Tissue Mobility Assessment Moderate tone bilateral levator, bilateral upper trap, bilateral SCM, R>L PT-OP-K Range of Motion Start: 09/12/18 17:38 Freq: Status: Active Protocol: Document 09/12/18 16:45 DCW (Rec: 09/13/18 09:38 DCW [id number]) Cervical Spine Range of Motion Cervical Spine Active Degrees Testing Position Sitting Flexion 45 Extension 50 Rotation Left 70 Rotation Right 62 Lateral Flexion Left 23 Lateral Flexion Right 25 ROM Limitations Soft Tissue Tightness Bony Restriction Muscle Tone PT-OP-M Strength Start: 09/12/18 17:38 Freq: Status: Active Protocol: Document 09/12/18 16:45 DCW (Rec: 09/13/18 09:38 DCW [id number]) Hip Strength Hip Manual Muscle Testing Right Flexion (L2) 4 Good Abduction 4 Good Adduction 4 Good External Rotation 4 Good Internal Rotation 4 Good Left Flexion (L2) 4+ Good+ Abduction 4+ Good+ Adduction 4+ Good+ External Rotation 4+ Good+ Internal Rotation 4+ Good+ Knee Strength Knee Manual Muscle Testing Right Flexion (S2) 4 Good Extension (L3) 4- Good- Left Flexion (S2) 4+ Good+ Extension (L3) 4 Good PT-OP-Q Treatments Start: 09/12/18 17:38 Freq: Status: Active Protocol: Document 09/19/18 10:45 DCW (Rec: 09/19/18 11:27 DCW [id number]) Cardio Equipment Recumbent Elliptical (Biodex) Duration (Minutes) 5 Resistance 4 Seat Position 11 Gym Equipment Shuttle Recovery Unilateral Squats Resistance 37# Shuttle Recovery Platform Stable Bilateral Squats Resistance 75# Shuttle Recovery Platform Stable Manual Therapy Treatment Soft Tissue Mobilization 3 Body Location Cervical paraspinals Mobilization Type Strumming Sustained Pressure Trigger Point Release Intensity/Depth Deep Body Position Supine 2 Body Location Suboccipitals Mobilization Type Sustained Pressure Intensity/Depth Superficial Body Position Supine 1 Body Location Upper Trap Mobilization Type Strain/Counterstrain Sustained Pressure Trigger Point Release Intensity/Depth Moderate Body Position Supine Manual Traction Cervical Body Position Supine PT-OP-T Assessment and Plan Start: 09/12/18 17:38 Freq: Status: Active Protocol: Document 09/19/18 10:45 DCW (Rec: 09/19/18 11:27 DCW [id number]) Physical Therapy Assessment Impairments Impairments Activity Tolerance Balance Gait ROM Soft Tissue Mobility Strength Goals Five Impairment Moderate muscle tone in bilateral levator, upper trap, SCM Short Term Goal (STG) Tone in pt's upper trap, levator, and SCM should be at worst mild bilaterally STG Duration 10/13/18 Four Impairment Limited cervical ROM Usp Goal (LTG) Cervical lateral flexion to 35 ? bilaterally LTG Duration 11/12/18 Three Impairment Pt unable to complete six minute walk test. Ambulates a total of 349' Usp Goal (LTG) Pt to complete 6 MWT with an overall speed of at least 1.97 ft/sec (total of 709'). A speed slower than that indicates future functional decline in older adults. Two Impairment Pt at an increased falls risk Short Term Goal (STG) Pt to complete TUG with a three-trial average of 15 seconds STG Duration 10/13/18 Senior Database Administrator Goal (LTG) Pt to score 46/56 on Little Balance scale LTG Duration 11/12/18 One Impairment Pt reports a generalized feeling of imbalance when walking Senior Database Administrator Goal (LTG) Pt to tolerate walk from [facility] to his appointment at [facility] without requiring a rest break LTG Duration 11/12/18 Assessment Summary Assessment Pt tolerated treatment well today, no increased complaints . Physical Therapy Plan Frequency and Duration Frequency of Treatment 2x/Week Duration of Treatment 10 weeks Plan of Care Start Date 09/12/18 Plan of Care End Date 11/21/18 Therapeutic Interventions Therapeutic Interventions Aquatic Therapy Balance Training Home Exercise Program Joint Mobilizations Manual Therapy Neuromuscular Re-education Patient/Caregiver Education Self-Care/Home Management Soft Tissue Mobilization Therapeutic Activities Therapeutic Exercises Modalities Cold Pack/Ice Massage Electric Stimulation Hot Packs Next Visit Focus/Plan Next Note Type Treatment Note Next Visit Plan STM to cervical musculature, balance training, increased activity tolerance
--- NOTE | 2018-09-24 11:13 | PT.OTN ---
Current Diagnoses Muscle weakness (generalized) (09/24/18) Other abnormalities of gait and mobility (09/24/18) Other fatigue (09/24/18) Physical Therapy Treatment Note PT-OP-A Visit Information Start: 09/12/18 17:38 Freq: Status: Active Protocol: Document 09/24/18 10:30 DCW (Rec: 09/24/18 11:13 DCW [id number]) Out-Patient Physical Therapy Visit Information Visit Information Visit Type Treatment Note Visit Start Time 10:30 Visit Stop Time 11:15 Total Visit Minutes 45 Visit Number 4 Number of OPERATIONS SUPPORT COORDINATOR Visits 0 Evaluation Information Evaluation Date 09/12/18 PT-OP-B Current Condition Start: 09/12/18 17:38 Freq: Status: Active Protocol: Document 09/12/18 16:45 DCW (Rec: 09/12/18 17:54 DCW [id number]) Current Condition History of Current Condition Onset Date Multi-year history Current Complaints Imbalance, fatigue History of Current Condition Pt is an 82 year old male with a long-standing history with this clinic. Pt has previously been treated for generalized imbalance and fatigue. Pt has a vague sense of imbalance that has thus far been unable to have been diagnosed by multiple specialists, and he describes as feeling off balance with fuzzy vision. When pt had been treated at this clinic previously, there was some progress made with working on decreasing his cervical tone and balance training. Pt notes that he wants to see if all the progress I made last time is still there, or if I've declined at all. Pt admits that he has not been taking good care of himself, and has been focused on his as she has declined with her dementia. Pt notes that just today, his moved out of their shared apartment in [facility] to go to a memory care clinic in [place]. Pt admits that he is not thrilled about it, and didn't have any say in the timing of any of this. Pt reports that he always has his walking stick with him when he is out of his apartment, and admits that he is unable to walk very far due to fatigue. Prior Treatments and Tests History of multiple rounds of physical therapy at this clinic with varied results Treatment Goals Patient/Caregiver Goals Pt wants to improve his balance and activity tolerance Prior Functional Status Baseline Function- ADL's Needs Assist Baseline Function- Mobility Needs Assist Current Functional Impairments (Reported) Functional Limitations- Mobility/Gait Pt uses a walking stick and has a poor consistance to his path deviation. Pt reports that sometimes his balance feels better if his glasses are off, but not all the time. Personal Factors Other Personal Factors That May Effect Recently placed on Therapy/Recovery antidepressants due to his 's decline, Neuropathy, CHF, Pacemaker PT-OP-C Subjective Start: 09/12/18 17:38 Freq: Status: Active Protocol: Document 09/24/18 10:30 DCW (Rec: 09/24/18 11:13 DCW [id number]) OP-PT Subjective Patient Comments Patient Comments I walked out to my car pretty well, and I walked into here pretty well, but I'm just not sure if I'm doing better or not. PT-OP-D Balance Start: 09/12/18 17:38 Freq: Status: Active Protocol: Document 09/12/18 16:45 DCW (Rec: 09/13/18 09:36 DCW [id number]) Balance Tests Little Balance Test Little Balance Test Score 36/56 Little Impairment Rating 20 to 39% Impaired (Score 34- 44) Little Balance Assessment Evaluation Sitting to Standing Ability Independent w/Hands Unsupported Stance 30 seconds Sitting Unsupported, Feet on Floor Safely- 2 minutes Standing to Sitting Ability Safely, Minimal Hand Use Transfer Ability Safely, Minimal Hand Use Unsupported Stance- Eyes Closed Safely, 10 seconds Unsupported Stance- Eyes Open Supervision to maintain Reaching Forward Standing Safely, 5 inches Pick- Up Object From Floor Requires Supervision Look Behind Shoulder - Standing Shifts Weight Unilateral Turning 360 Degrees Turns slowly, but safely Unsupported Stance, Alternating Feet on Assist to Prevent Fall Stair Unsupported Tandem Stance Small Step- 30 seconds Unilateral Leg Stance Lifts Leg/Unable to Hold Total Score Little Total Score (out of 56 points) 36 Little Impairment Rating 20 to 39% Impaired (Score 34- 44) PT-OP-E Functional Tests Start: 09/12/18 17:38 Freq: Status: Active Protocol: Document 09/12/18 16:45 DCW (Rec: 09/13/18 09:36 DCW [id number]) Functional Tests 6 Minute Walk Test Distance 349 Device Used walking stick Comments stopped after 2:58, one standing rest break Timed Up and Go (TUG) Score 22.71 Comments 3-trial average (22.79, 23.19, 22.15) TUG Impairment Rating 100% Impaired (Score 20) PT-OP-F Manual Assessment Start: 09/12/18 17:38 Freq: Status: Active Protocol: Document 09/12/18 16:45 DCW (Rec: 09/13/18 09:36 DCW [id number]) Manual Assessments Soft Tissue Assessment Soft Tissue Mobility Assessment Moderate tone bilateral levator, bilateral upper trap, bilateral SCM, R>L PT-OP-K Range of Motion Start: 09/12/18 17:38 Freq: Status: Active Protocol: Document 09/12/18 16:45 DCW (Rec: 09/13/18 09:38 DCW [id number]) Cervical Spine Range of Motion Cervical Spine Active Degrees Testing Position Sitting Flexion 45 Extension 50 Rotation Left 70 Rotation Right 62 Lateral Flexion Left 23 Lateral Flexion Right 25 ROM Limitations Soft Tissue Tightness Bony Restriction Muscle Tone PT-OP-M Strength Start: 09/12/18 17:38 Freq: Status: Active Protocol: Document 09/12/18 16:45 DCW (Rec: 09/13/18 09:38 DCW [id number]) Hip Strength Hip Manual Muscle Testing Right Flexion (L2) 4 Good Abduction 4 Good Adduction 4 Good External Rotation 4 Good Internal Rotation 4 Good Left Flexion (L2) 4+ Good+ Abduction 4+ Good+ Adduction 4+ Good+ External Rotation 4+ Good+ Internal Rotation 4+ Good+ Knee Strength Knee Manual Muscle Testing Right Flexion (S2) 4 Good Extension (L3) 4- Good- Left Flexion (S2) 4+ Good+ Extension (L3) 4 Good PT-OP-Q Treatments Start: 09/12/18 17:38 Freq: Status: Active Protocol: Document 09/24/18 10:30 DCW (Rec: 09/24/18 11:13 DCW [id number]) Cardio Equipment Recumbent Elliptical (Biodex) Duration (Minutes) 5 Resistance 4 Seat Position 13 Gym Equipment Shuttle Recovery Unilateral Squats Resistance 37# Shuttle Recovery Platform Stable Bilateral Squats Resistance 87# Shuttle Recovery Platform Stable Therapeutic Exercises Other Exercises Resisted Ambulation Other Exercise Name Side-stepping Resistance Yellow Equipment Used T-band Manual Therapy Treatment Soft Tissue Mobilization 3 Body Location Cervical paraspinals Mobilization Type Strumming Sustained Pressure Trigger Point Release Intensity/Depth Deep Body Position Supine 2 Body Location Suboccipitals Mobilization Type Sustained Pressure Intensity/Depth Superficial Body Position Supine 1 Body Location Upper Trap Mobilization Type Strain/Counterstrain Sustained Pressure Trigger Point Release Intensity/Depth Moderate Body Position Supine Manual Traction Cervical Body Position Supine PT-OP-T Assessment and Plan Start: 09/12/18 17:38 Freq: Status: Active Protocol: Document 09/24/18 10:30 DCW (Rec: 09/24/18 11:13 DCW [id number]) Physical Therapy Assessment Impairments Impairments Activity Tolerance Balance Gait ROM Soft Tissue Mobility Strength Goals Five Impairment Moderate muscle tone in bilateral levator, upper trap, SCM Short Term Goal (STG) Tone in pt's upper trap, levator, and SCM should be at worst mild bilaterally STG Duration 10/13/18 Four Impairment Limited cervical ROM Mcfp Goal (LTG) Cervical lateral flexion to 35 ? bilaterally LTG Duration 11/12/18 Three Impairment Pt unable to complete six minute walk test. Ambulates a total of 349' Sweat Band Sewer Goal (LTG) Pt to complete 6 MWT with an overall speed of at least 1.97 ft/sec (total of 709'). A speed slower than that indicates future functional decline in older adults. Two Impairment Pt at an increased falls risk Short Term Goal (STG) Pt to complete TUG with a three-trial average of 15 seconds STG Duration 10/13/18 Sweat Band Sewer Goal (LTG) Pt to score 46/56 on Little Balance scale LTG Duration 11/12/18 One Impairment Pt reports a generalized feeling of imbalance when walking Sweat Band Sewer Goal (LTG) Pt to tolerate walk from [facility] to his appointment at [facility] PT without requiring a rest break LTG Duration 11/12/18 Assessment Summary Assessment Noticeable decrease in upper trap today today following STM . Physical Therapy Plan Frequency and Duration Frequency of Treatment 2x/Week Duration of Treatment 10 weeks Plan of Care Start Date 09/12/18 Plan of Care End Date 11/21/18 Therapeutic Interventions Therapeutic Interventions Aquatic Therapy Balance Training Home Exercise Program Joint Mobilizations Manual Therapy Neuromuscular Re-education Patient/Caregiver Education Self-Care/Home Management Soft Tissue Mobilization Therapeutic Activities Therapeutic Exercises Modalities Cold Pack/Ice Massage Electric Stimulation Hot Packs Next Visit Focus/Plan Next Note Type Treatment Note Next Visit Plan STM to cervical musculature, balance training, increased activity tolerance
--- NOTE | 2018-09-27 11:13 | PT.OTN ---
Current Diagnoses Muscle weakness (generalized) (09/27/18) Other abnormalities of gait and mobility (09/27/18) Other fatigue (09/27/18) Physical Therapy Treatment Note PT-OP-A Visit Information Start: 09/12/18 17:38 Freq: Status: Active Protocol: Document 09/27/18 10:30 DCW (Rec: 09/27/18 11:12 DCW [id number]) Out-Patient Physical Therapy Visit Information Visit Information Visit Type Treatment Note Visit Start Time 10:30 Visit Stop Time 11:15 Total Visit Minutes 45 Visit Number 5 Number of CONFERENCE PLANNER Visits 0 Evaluation Information Evaluation Date 09/12/18 PT-OP-B Current Condition Start: 09/12/18 17:38 Freq: Status: Active Protocol: Document 09/12/18 16:45 DCW (Rec: 09/12/18 17:54 DCW [id number]) Current Condition History of Current Condition Onset Date Multi-year history Current Complaints Imbalance, fatigue History of Current Condition Pt is an 82 year old male with a long-standing history with this clinic. Pt has previously been treated for generalized imbalance and fatigue. Pt has a vague sense of imbalance that has thus far been unable to have been diagnosed by multiple specialists, and he describes as feeling off balance with fuzzy vision. When pt had been treated at this clinic previously, there was some progress made with working on decreasing his cervical tone and balance training. Pt notes that he wants to see if all the progress I made last time is still there, or if I've declined at all. Pt admits that he has not been taking good care of himself, and has been focused on his as she has declined with her dementia. Pt notes that just today, his moved out of their shared apartment in [facility] to go to a memory care clinic in [place]. Pt admits that he is not thrilled about it, and didn't have any say in the timing of any of this. Pt reports that he always has his walking stick with him when he is out of his apartment, and admits that he is unable to walk very far due to fatigue. Prior Treatments and Tests History of multiple rounds of physical therapy at this clinic with varied results Treatment Goals Patient/Caregiver Goals Pt wants to improve his balance and activity tolerance Prior Functional Status Baseline Function- ADL's Needs Assist Baseline Function- Mobility Needs Assist Current Functional Impairments (Reported) Functional Limitations- Mobility/Gait Pt uses a walking stick and has a poor consistance to his path deviation. Pt reports that sometimes his balance feels better if his glasses are off, but not all the time. Personal Factors Other Personal Factors That May Effect Recently placed on Therapy/Recovery antidepressants due to his 's decline, Neuropathy, CHF, Pacemaker PT-OP-C Subjective Start: 09/12/18 17:38 Freq: Status: Active Protocol: Document 09/27/18 10:30 DCW (Rec: 09/27/18 11:12 DCW [id number]) OP-PT Subjective Patient Comments Patient Comments I feel pretty good today, I was able to walk all the way over here mostly without using my stick. PT-OP-D Balance Start: 09/12/18 17:38 Freq: Status: Active Protocol: Document 09/12/18 16:45 DCW (Rec: 09/13/18 09:36 DCW [id number]) Balance Tests Little Balance Test Little Balance Test Score 36/56 Little Impairment Rating 20 to 39% Impaired (Score 34- 44) Little Balance Assessment Evaluation Sitting to Standing Ability Independent w/Hands Unsupported Stance 30 seconds Sitting Unsupported, Feet on Floor Safely- 2 minutes Standing to Sitting Ability Safely, Minimal Hand Use Transfer Ability Safely, Minimal Hand Use Unsupported Stance- Eyes Closed Safely, 10 seconds Unsupported Stance- Eyes Open Supervision to maintain Reaching Forward Standing Safely, 5 inches Pick- Up Object From Floor Requires Supervision Look Behind Shoulder - Standing Shifts Weight Unilateral Turning 360 Degrees Turns slowly, but safely Unsupported Stance, Alternating Feet on Assist to Prevent Fall Stair Unsupported Tandem Stance Small Step- 30 seconds Unilateral Leg Stance Lifts Leg/Unable to Hold Total Score Little Total Score (out of 56 points) 36 Little Impairment Rating 20 to 39% Impaired (Score 34- 44) PT-OP-E Functional Tests Start: 09/12/18 17:38 Freq: Status: Active Protocol: Document 09/12/18 16:45 DCW (Rec: 09/13/18 09:36 DCW [id number]) Functional Tests 6 Minute Walk Test Distance 349 Device Used walking stick Comments stopped after 2:58, one standing rest break Timed Up and Go (TUG) Score 22.71 Comments 3-trial average (22.79, 23.19, 22.15) TUG Impairment Rating 100% Impaired (Score 20) PT-OP-F Manual Assessment Start: 09/12/18 17:38 Freq: Status: Active Protocol: Document 09/12/18 16:45 DCW (Rec: 09/13/18 09:36 DCW [id number]) Manual Assessments Soft Tissue Assessment Soft Tissue Mobility Assessment Moderate tone bilateral levator, bilateral upper trap, bilateral SCM, R>L PT-OP-K Range of Motion Start: 09/12/18 17:38 Freq: Status: Active Protocol: Document 09/12/18 16:45 DCW (Rec: 09/13/18 09:38 DCW [id number]) Cervical Spine Range of Motion Cervical Spine Active Degrees Testing Position Sitting Flexion 45 Extension 50 Rotation Left 70 Rotation Right 62 Lateral Flexion Left 23 Lateral Flexion Right 25 ROM Limitations Soft Tissue Tightness Bony Restriction Muscle Tone PT-OP-M Strength Start: 09/12/18 17:38 Freq: Status: Active Protocol: Document 09/12/18 16:45 DCW (Rec: 09/13/18 09:38 DCW [id number]) Hip Strength Hip Manual Muscle Testing Right Flexion (L2) 4 Good Abduction 4 Good Adduction 4 Good External Rotation 4 Good Internal Rotation 4 Good Left Flexion (L2) 4+ Good+ Abduction 4+ Good+ Adduction 4+ Good+ External Rotation 4+ Good+ Internal Rotation 4+ Good+ Knee Strength Knee Manual Muscle Testing Right Flexion (S2) 4 Good Extension (L3) 4- Good- Left Flexion (S2) 4+ Good+ Extension (L3) 4 Good PT-OP-Q Treatments Start: 09/12/18 17:38 Freq: Status: Active Protocol: Document 09/27/18 10:30 DCW (Rec: 09/27/18 11:12 DCW [id number]) Cardio Equipment Recumbent Elliptical (BiodAIRVEND) Duration (Minutes) 6 Resistance 5 Seat Position 13 Gym Equipment Shuttle Recovery Unilateral Squats Resistance 37# Shuttle Recovery Platform Stable Bilateral Squats Resistance 87# Shuttle Recovery Platform Stable Therapeutic Exercises Other Exercises Resisted Ambulation Other Exercise Name Side-stepping Resistance Yellow Equipment Used T-band Manual Therapy Treatment Soft Tissue Mobilization 3 Body Location Cervical paraspinals Mobilization Type Strumming Sustained Pressure Trigger Point Release Intensity/Depth Deep Body Position Supine 2 Body Location Suboccipitals Mobilization Type Sustained Pressure Intensity/Depth Superficial Body Position Supine 1 Body Location Upper Trap Mobilization Type Strain/Counterstrain Sustained Pressure Trigger Point Release Intensity/Depth Moderate Body Position Supine Manual Traction Cervical Body Position Supine PT-OP-T Assessment and Plan Start: 09/12/18 17:38 Freq: Status: Active Protocol: Document 09/27/18 10:30 DCW (Rec: 09/27/18 11:12 DCW [id number]) Physical Therapy Assessment Impairments Impairments Activity Tolerance Balance Gait ROM Soft Tissue Mobility Strength Goals Five Impairment Moderate muscle tone in bilateral levator, upper trap, SCM Short Term Goal (STG) Tone in pt's upper trap, levator, and SCM should be at worst mild bilaterally STG Duration 10/13/18 Four Impairment Limited cervical ROM Outside Machinist Helper Goal (LTG) Cervical lateral flexion to 35 ? bilaterally LTG Duration 11/12/18 Three Impairment Pt unable to complete six minute walk test. Ambulates a total of 349' Outside Machinist Helper Goal (LTG) Pt to complete 6 MWT with an overall speed of at least 1.97 ft/sec (total of 709'). A speed slower than that indicates future functional decline in older adults. Two Impairment Pt at an increased falls risk Short Term Goal (STG) Pt to complete TUG with a three-trial average of 15 seconds STG Duration 10/13/18 Shelter Goal (LTG) Pt to score 46/56 on Little Balance scale LTG Duration 11/12/18 One Impairment Pt reports a generalized feeling of imbalance when walking Outside Machinist Helper Goal (LTG) Pt to tolerate walk from [facility] to his appointment at [facility] PT without requiring a rest break LTG Duration 11/12/18 Assessment Summary Assessment Pt continues to show improvement with his reports of balance and stability during gait, tolerates treatment well. Physical Therapy Plan Frequency and Duration Frequency of Treatment 2x/Week Duration of Treatment 10 weeks Plan of Care Start Date 09/12/18 Plan of Care End Date 11/21/18 Therapeutic Interventions Therapeutic Interventions Aquatic Therapy Balance Training Home Exercise Program Joint Mobilizations Manual Therapy Neuromuscular Re-education Patient/Caregiver Education Self-Care/Home Management Soft Tissue Mobilization Therapeutic Activities Therapeutic Exercises Modalities Cold Pack/Ice Massage Electric Stimulation Hot Packs Next Visit Focus/Plan Next Note Type Treatment Note Next Visit Plan STM to cervical musculature, balance training, increased activity tolerance
--- NOTE | 2018-10-02 12:42 | PT.OTN ---
Current Diagnoses Muscle weakness (generalized) (10/02/18) Other abnormalities of gait and mobility (10/02/18) Other fatigue (10/02/18) Physical Therapy Treatment Note PT-OP-A Visit Information Start: 09/12/18 17:38 Freq: Status: Active Protocol: Document 10/02/18 12:00 DCW (Rec: 10/02/18 12:42 DCW [id number]) Out-Patient Physical Therapy Visit Information Visit Information Visit Type Treatment Note Visit Start Time 12:00 Visit Stop Time 12:45 Total Visit Minutes 45 Visit Number 6 Number of RISK CONSULTANT Visits 0 Evaluation Information Evaluation Date 09/12/18 PT-OP-B Current Condition Start: 09/12/18 17:38 Freq: Status: Active Protocol: Document 09/12/18 16:45 DCW (Rec: 09/12/18 17:54 DCW [id number]) Current Condition History of Current Condition Onset Date Multi-year history Current Complaints Imbalance, fatigue History of Current Condition Pt is an 82 year old male with a long-standing history with this clinic. Pt has previously been treated for generalized imbalance and fatigue. Pt has a vague sense of imbalance that has thus far been unable to have been diagnosed by multiple specialists, and he describes as feeling off balance with fuzzy vision. When pt had been treated at this clinic previously, there was some progress made with working on decreasing his cervical tone and balance training. Pt notes that he wants to see if all the progress I made last time is still there, or if I've declined at all. Pt admits that he has not been taking good care of himself, and has been focused on his as she has declined with her dementia. Pt notes that just today, his moved out of their shared apartment in [facility] to go to a memory care clinic in [place]. Pt admits that he is not thrilled about it, and didn't have any say in the timing of any of this. Pt reports that he always has his walking stick with him when he is out of his apartment, and admits that he is unable to walk very far due to fatigue. Prior Treatments and Tests History of multiple rounds of physical therapy at this clinic with varied results Treatment Goals Patient/Caregiver Goals Pt wants to improve his balance and activity tolerance Prior Functional Status Baseline Function- ADL's Needs Assist Baseline Function- Mobility Needs Assist Current Functional Impairments (Reported) Functional Limitations- Mobility/Gait Pt uses a walking stick and has a poor consistance to his path deviation. Pt reports that sometimes his balance feels better if his glasses are off, but not all the time. Personal Factors Other Personal Factors That May Effect Recently placed on Therapy/Recovery antidepressants due to his 's decline, Neuropathy, CHF, Pacemaker PT-OP-C Subjective Start: 09/12/18 17:38 Freq: Status: Active Protocol: Document 10/02/18 12:00 DCW (Rec: 10/02/18 12:42 DCW [id number]) OP-PT Subjective Patient Comments Patient Comments Pt reports he used the recumbent stepper at [facility] yesterday, and woke up a little sore today, but otherwise is doing well. PT-OP-D Balance Start: 09/12/18 17:38 Freq: Status: Active Protocol: Document 09/12/18 16:45 DCW (Rec: 09/13/18 09:36 DCW [id number]) Balance Tests Little Balance Test Little Balance Test Score 36/56 Little Impairment Rating 20 to 39% Impaired (Score 34- 44) Little Balance Assessment Evaluation Sitting to Standing Ability Independent w/Hands Unsupported Stance 30 seconds Sitting Unsupported, Feet on Floor Safely- 2 minutes Standing to Sitting Ability Safely, Minimal Hand Use Transfer Ability Safely, Minimal Hand Use Unsupported Stance- Eyes Closed Safely, 10 seconds Unsupported Stance- Eyes Open Supervision to maintain Reaching Forward Standing Safely, 5 inches Pick- Up Object From Floor Requires Supervision Look Behind Shoulder - Standing Shifts Weight Unilateral Turning 360 Degrees Turns slowly, but safely Unsupported Stance, Alternating Feet on Assist to Prevent Fall Stair Unsupported Tandem Stance Small Step- 30 seconds Unilateral Leg Stance Lifts Leg/Unable to Hold Total Score Little Total Score (out of 56 points) 36 Little Impairment Rating 20 to 39% Impaired (Score 34- 44) PT-OP-E Functional Tests Start: 09/12/18 17:38 Freq: Status: Active Protocol: Document 09/12/18 16:45 DCW (Rec: 09/13/18 09:36 DCW [id number]) Functional Tests 6 Minute Walk Test Distance 349 Device Used walking stick Comments stopped after 2:58, one standing rest break Timed Up and Go (TUG) Score 22.71 Comments 3-trial average (22.79, 23.19, 22.15) TUG Impairment Rating 100% Impaired (Score 20) PT-OP-F Manual Assessment Start: 09/12/18 17:38 Freq: Status: Active Protocol: Document 09/12/18 16:45 DCW (Rec: 09/13/18 09:36 DCW [id number]) Manual Assessments Soft Tissue Assessment Soft Tissue Mobility Assessment Moderate tone bilateral levator, bilateral upper trap, bilateral SCM, R>L PT-OP-K Range of Motion Start: 09/12/18 17:38 Freq: Status: Active Protocol: Document 09/12/18 16:45 DCW (Rec: 09/13/18 09:38 DCW [id number]) Cervical Spine Range of Motion Cervical Spine Active Degrees Testing Position Sitting Flexion 45 Extension 50 Rotation Left 70 Rotation Right 62 Lateral Flexion Left 23 Lateral Flexion Right 25 ROM Limitations Soft Tissue Tightness Bony Restriction Muscle Tone PT-OP-M Strength Start: 09/12/18 17:38 Freq: Status: Active Protocol: Document 09/12/18 16:45 DCW (Rec: 09/13/18 09:38 DCW [id number]) Hip Strength Hip Manual Muscle Testing Right Flexion (L2) 4 Good Abduction 4 Good Adduction 4 Good External Rotation 4 Good Internal Rotation 4 Good Left Flexion (L2) 4+ Good+ Abduction 4+ Good+ Adduction 4+ Good+ External Rotation 4+ Good+ Internal Rotation 4+ Good+ Knee Strength Knee Manual Muscle Testing Right Flexion (S2) 4 Good Extension (L3) 4- Good- Left Flexion (S2) 4+ Good+ Extension (L3) 4 Good PT-OP-Q Treatments Start: 09/12/18 17:38 Freq: Status: Active Protocol: Document 10/02/18 12:00 DCW (Rec: 10/02/18 12:42 DCW [id number]) Cardio Equipment Recumbent Elliptical (Biodex) Duration (Minutes) 6 Resistance 5 Seat Position 13 Gym Equipment Shuttle Recovery Unilateral Squats Resistance 37# Shuttle Recovery Platform Stable Bilateral Squats Resistance 87# Shuttle Recovery Platform Stable Therapeutic Exercises Other Exercises Resisted Ambulation Other Exercise Name Side-stepping Resistance Green Equipment Used T-band Manual Therapy Treatment Soft Tissue Mobilization 3 Body Location Cervical paraspinals Mobilization Type Strumming Sustained Pressure Trigger Point Release Intensity/Depth Deep Body Position Supine 2 Body Location Suboccipitals Mobilization Type Sustained Pressure Intensity/Depth Superficial Body Position Supine 1 Body Location Upper Trap Mobilization Type Strain/Counterstrain Sustained Pressure Trigger Point Release Intensity/Depth Moderate Body Position Supine Manual Traction Cervical Body Position Supine PT-OP-T Assessment and Plan Start: 09/12/18 17:38 Freq: Status: Active Protocol: Document 10/02/18 12:00 DCW (Rec: 10/02/18 12:42 DCW [id number]) Physical Therapy Assessment Impairments Impairments Activity Tolerance Balance Gait ROM Soft Tissue Mobility Strength Goals Five Impairment Moderate muscle tone in bilateral levator, upper trap, SCM Short Term Goal (STG) Tone in pt's upper trap, levator, and SCM should be at worst mild bilaterally STG Duration 10/13/18 Four Impairment Limited cervical ROM Group Home Goal (LTG) Cervical lateral flexion to 35 ? bilaterally LTG Duration 11/12/18 Three Impairment Pt unable to complete six minute walk test. Ambulates a total of 349' Group Home Goal (LTG) Pt to complete 6 MWT with an overall speed of at least 1.97 ft/sec (total of 709'). A speed slower than that indicates future functional decline in older adults. Two Impairment Pt at an increased falls risk Short Term Goal (STG) Pt to complete TUG with a three-trial average of 15 seconds STG Duration 10/13/18 Group Home Goal (LTG) Pt to score 46/56 on Little Balance scale LTG Duration 11/12/18 One Impairment Pt reports a generalized feeling of imbalance when walking Group Home Goal (LTG) Pt to tolerate walk from [facility] to his appointment at [facility] PT without requiring a rest break LTG Duration 11/12/18 Assessment Summary Assessment Pt tolerated treatment well Physical Therapy Plan Frequency and Duration Frequency of Treatment 2x/Week Duration of Treatment 10 weeks Plan of Care Start Date 09/12/18 Plan of Care End Date 11/21/18 Therapeutic Interventions Therapeutic Interventions Aquatic Therapy Balance Training Home Exercise Program Joint Mobilizations Manual Therapy Neuromuscular Re-education Patient/Caregiver Education Self-Care/Home Management Soft Tissue Mobilization Therapeutic Activities Therapeutic Exercises Modalities Cold Pack/Ice Massage Electric Stimulation Hot Packs Next Visit Focus/Plan Next Note Type Treatment Note Next Visit Plan STM to cervical musculature, balance training, increased activity tolerance
--- NOTE | 2018-10-05 12:41 | PT.OTN ---
Current Diagnoses Muscle weakness (generalized) (10/05/18) Other abnormalities of gait and mobility (10/05/18) Other fatigue (10/05/18) Physical Therapy Treatment Note PT-OP-A Visit Information Start: 09/12/18 17:38 Freq: Status: Active Protocol: Document 10/05/18 12:00 DCW (Rec: 10/05/18 12:41 DCW [id number]) Out-Patient Physical Therapy Visit Information Visit Information Visit Type Treatment Note Visit Start Time 12:00 Visit Stop Time 12:45 Total Visit Minutes 45 Visit Number 7 Number of ELECTRICAL ENGINEERING INTERN Visits 0 Evaluation Information Evaluation Date 09/12/18 PT-OP-B Current Condition Start: 09/12/18 17:38 Freq: Status: Active Protocol: Document 09/12/18 16:45 DCW (Rec: 09/12/18 17:54 DCW [id number]) Current Condition History of Current Condition Onset Date Multi-year history Current Complaints Imbalance, fatigue History of Current Condition Pt is an 82 year old male with a long-standing history with this clinic. Pt has previously been treated for generalized imbalance and fatigue. Pt has a vague sense of imbalance that has thus far been unable to have been diagnosed by multiple specialists, and he describes as feeling off balance with fuzzy vision. When pt had been treated at this clinic previously, there was some progress made with working on decreasing his cervical tone and balance training. Pt notes that he wants to see if all the progress I made last time is still there, or if I've declined at all. Pt admits that he has not been taking good care of himself, and has been focused on his as she has declined with her dementia. Pt notes that just today, his moved out of their shared apartment in [facility] to go to a memory care clinic in [place]. Pt admits that he is not thrilled about it, and didn't have any say in the timing of any of this. Pt reports that he always has his walking stick with him when he is out of his apartment, and admits that he is unable to walk very far due to fatigue. Prior Treatments and Tests History of multiple rounds of physical therapy at this clinic with varied results Treatment Goals Patient/Caregiver Goals Pt wants to improve his balance and activity tolerance Prior Functional Status Baseline Function- ADL's Needs Assist Baseline Function- Mobility Needs Assist Current Functional Impairments (Reported) Functional Limitations- Mobility/Gait Pt uses a walking stick and has a poor consistance to his path deviation. Pt reports that sometimes his balance feels better if his glasses are off, but not all the time. Personal Factors Other Personal Factors That May Effect Recently placed on Therapy/Recovery antidepressants due to his 's decline, Neuropathy, CHF, Pacemaker PT-OP-C Subjective Start: 09/12/18 17:38 Freq: Status: Active Protocol: Document 10/05/18 12:00 DCW (Rec: 10/05/18 12:41 DCW [id number]) OP-PT Subjective Patient Comments Patient Comments Pt reports that he had some soreness down his back yesterday, but it feels a bit better today, just now mainly in his neck. PT-OP-D Balance Start: 09/12/18 17:38 Freq: Status: Active Protocol: Document 09/12/18 16:45 DCW (Rec: 09/13/18 09:36 DCW [id number]) Balance Tests Little Balance Test Little Balance Test Score 36/56 Little Impairment Rating 20 to 39% Impaired (Score 34- 44) Little Balance Assessment Evaluation Sitting to Standing Ability Independent w/Hands Unsupported Stance 30 seconds Sitting Unsupported, Feet on Floor Safely- 2 minutes Standing to Sitting Ability Safely, Minimal Hand Use Transfer Ability Safely, Minimal Hand Use Unsupported Stance- Eyes Closed Safely, 10 seconds Unsupported Stance- Eyes Open Supervision to maintain Reaching Forward Standing Safely, 5 inches Pick- Up Object From Floor Requires Supervision Look Behind Shoulder - Standing Shifts Weight Unilateral Turning 360 Degrees Turns slowly, but safely Unsupported Stance, Alternating Feet on Assist to Prevent Fall Stair Unsupported Tandem Stance Small Step- 30 seconds Unilateral Leg Stance Lifts Leg/Unable to Hold Total Score Little Total Score (out of 56 points) 36 Little Impairment Rating 20 to 39% Impaired (Score 34- 44) PT-OP-E Functional Tests Start: 09/12/18 17:38 Freq: Status: Active Protocol: Document 09/12/18 16:45 DCW (Rec: 09/13/18 09:36 DCW [id number]) Functional Tests 6 Minute Walk Test Distance 349 Device Used walking stick Comments stopped after 2:58, one standing rest break Timed Up and Go (TUG) Score 22.71 Comments 3-trial average (22.79, 23.19, 22.15) TUG Impairment Rating 100% Impaired (Score 20) PT-OP-F Manual Assessment Start: 09/12/18 17:38 Freq: Status: Active Protocol: Document 09/12/18 16:45 DCW (Rec: 09/13/18 09:36 DCW [id number]) Manual Assessments Soft Tissue Assessment Soft Tissue Mobility Assessment Moderate tone bilateral levator, bilateral upper trap, bilateral SCM, R>L PT-OP-K Range of Motion Start: 09/12/18 17:38 Freq: Status: Active Protocol: Document 09/12/18 16:45 DCW (Rec: 09/13/18 09:38 DCW [id number]) Cervical Spine Range of Motion Cervical Spine Active Degrees Testing Position Sitting Flexion 45 Extension 50 Rotation Left 70 Rotation Right 62 Lateral Flexion Left 23 Lateral Flexion Right 25 ROM Limitations Soft Tissue Tightness Bony Restriction Muscle Tone PT-OP-M Strength Start: 09/12/18 17:38 Freq: Status: Active Protocol: Document 09/12/18 16:45 DCW (Rec: 09/13/18 09:38 DCW [id number]) Hip Strength Hip Manual Muscle Testing Right Flexion (L2) 4 Good Abduction 4 Good Adduction 4 Good External Rotation 4 Good Internal Rotation 4 Good Left Flexion (L2) 4+ Good+ Abduction 4+ Good+ Adduction 4+ Good+ External Rotation 4+ Good+ Internal Rotation 4+ Good+ Knee Strength Knee Manual Muscle Testing Right Flexion (S2) 4 Good Extension (L3) 4- Good- Left Flexion (S2) 4+ Good+ Extension (L3) 4 Good PT-OP-Q Treatments Start: 09/12/18 17:38 Freq: Status: Active Protocol: Document 10/05/18 12:00 DCW (Rec: 10/05/18 12:41 DCW [id number]) Cardio Equipment Recumbent Elliptical ([employer]) Duration (Minutes) 6 Resistance 5 Seat Position 13 Gym Equipment Shuttle Recovery Unilateral Squats Resistance 37# Shuttle Recovery Platform Stable Bilateral Squats Resistance 87# Shuttle Recovery Platform Stable Therapeutic Exercises Other Exercises Resisted Ambulation Other Exercise Name Side-stepping Resistance Green Equipment Used T-band Manual Therapy Treatment Soft Tissue Mobilization 3 Body Location Cervical paraspinals Mobilization Type Strumming Sustained Pressure Trigger Point Release Intensity/Depth Deep Body Position Supine 2 Body Location Suboccipitals Mobilization Type Sustained Pressure Intensity/Depth Superficial Body Position Supine 1 Body Location Upper Trap Mobilization Type Strain/Counterstrain Sustained Pressure Trigger Point Release Intensity/Depth Moderate Body Position Supine Manual Traction Cervical Body Position Supine PT-OP-T Assessment and Plan Start: 09/12/18 17:38 Freq: Status: Active Protocol: Document 10/05/18 12:00 DCW (Rec: 10/05/18 12:41 DCW [id number]) Physical Therapy Assessment Impairments Impairments Activity Tolerance Balance Gait ROM Soft Tissue Mobility Strength Goals Five Impairment Moderate muscle tone in bilateral levator, upper trap, SCM Short Term Goal (STG) Tone in pt's upper trap, levator, and SCM should be at worst mild bilaterally STG Duration 10/13/18 Four Impairment Limited cervical ROM [employer] Line Goal (LTG) Cervical lateral flexion to 35 ? bilaterally LTG Duration 11/12/18 Three Impairment Pt unable to complete six minute walk test. Ambulates a total of 349' Penitentiary Goal (LTG) Pt to complete 6 MWT with an overall speed of at least 1.97 ft/sec (total of 709'). A speed slower than that indicates future functional decline in older adults. Two Impairment Pt at an increased falls risk Short Term Goal (STG) Pt to complete TUG with a three-trial average of 15 seconds STG Duration 10/13/18 [employer] Goal (LTG) Pt to score 46/56 on Little Balance scale LTG Duration 11/12/18 One Impairment Pt reports a generalized feeling of imbalance when walking Penitentiary Goal (LTG) Pt to tolerate walk from [facility] to his appointment at [facility] without requiring a rest break LTG Duration 11/12/18 Assessment Summary Assessment Pt showing some improvement in tone and imbalance. Physical Therapy Plan Frequency and Duration Frequency of Treatment 2x/Week Duration of Treatment 10 weeks Plan of Care Start Date 09/12/18 Plan of Care End Date 11/21/18 Therapeutic Interventions Therapeutic Interventions Aquatic Therapy Balance Training Home Exercise Program Joint Mobilizations Manual Therapy Neuromuscular Re-education Patient/Caregiver Education Self-Care/Home Management Soft Tissue Mobilization Therapeutic Activities Therapeutic Exercises Modalities Cold Pack/Ice Massage Electric Stimulation Hot Packs Next Visit Focus/Plan Next Note Type Treatment Note Next Visit Plan STM to cervical musculature, balance training, increased activity tolerance
--- NOTE | 2018-10-09 12:49 | PT.OTN ---
Current Diagnoses Muscle weakness (generalized) (10/09/18) Other abnormalities of gait and mobility (10/09/18) Other fatigue (10/09/18) Physical Therapy Treatment Note PT-OP-A Visit Information Start: 09/12/18 17:38 Freq: Status: Active Protocol: Document 10/09/18 12:05 DCW (Rec: 10/09/18 12:49 DCW [id number]) Out-Patient Physical Therapy Visit Information Visit Information Visit Type Treatment Note Visit Note Pt arrived 5 min late Visit Start Time 12:05 Visit Stop Time 12:45 Total Visit Minutes 40 Visit Number 8 Number of DIGITAL RECRUITER Visits 0 Evaluation Information Evaluation Date 09/12/18 PT-OP-B Current Condition Start: 09/12/18 17:38 Freq: Status: Active Protocol: Document 09/12/18 16:45 DCW (Rec: 09/12/18 17:54 DCW [id number]) Current Condition History of Current Condition Onset Date Multi-year history Current Complaints Imbalance, fatigue History of Current Condition Pt is an 82 year old male with a long-standing history with this clinic. Pt has previously been treated for generalized imbalance and fatigue. Pt has a vague sense of imbalance that has thus far been unable to have been diagnosed by multiple specialists, and he describes as feeling off balance with fuzzy vision. When pt had been treated at this clinic previously, there was some progress made with working on decreasing his cervical tone and balance training. Pt notes that he wants to see if all the progress I made last time is still there, or if I've declined at all. Pt admits that he has not been taking good care of himself, and has been focused on his as she has declined with her dementia. Pt notes that just today, his moved out of their shared apartment in [facility] to go to a memory care clinic in [place]. Pt admits that he is not thrilled about it, and didn't have any say in the timing of any of this. Pt reports that he always has his walking stick with him when he is out of his apartment, and admits that he is unable to walk very far due to fatigue. Prior Treatments and Tests History of multiple rounds of physical therapy at this clinic with varied results Treatment Goals Patient/Caregiver Goals Pt wants to improve his balance and activity tolerance Prior Functional Status Baseline Function- ADL's Needs Assist Baseline Function- Mobility Needs Assist Current Functional Impairments (Reported) Functional Limitations- Mobility/Gait Pt uses a walking stick and has a poor consistance to his path deviation. Pt reports that sometimes his balance feels better if his glasses are off, but not all the time. Personal Factors Other Personal Factors That May Effect Recently placed on Therapy/Recovery antidepressants due to his 's decline, Neuropathy, CHF, Pacemaker PT-OP-C Subjective Start: 09/12/18 17:38 Freq: Status: Active Protocol: Document 10/09/18 12:05 DCW (Rec: 10/09/18 12:49 DCW [id number]) OP-PT Subjective Patient Comments Patient Comments I was really bad yesterday. I was unsteady and feeling pretty depressed. PT-OP-D Balance Start: 09/12/18 17:38 Freq: Status: Active Protocol: Document 09/12/18 16:45 DCW (Rec: 09/13/18 09:36 DCW [id number]) Balance Tests Little Balance Test Little Balance Test Score 36/56 Little Impairment Rating 20 to 39% Impaired (Score 34- 44) Little Balance Assessment Evaluation Sitting to Standing Ability Independent w/Hands Unsupported Stance 30 seconds Sitting Unsupported, Feet on Floor Safely- 2 minutes Standing to Sitting Ability Safely, Minimal Hand Use Transfer Ability Safely, Minimal Hand Use Unsupported Stance- Eyes Closed Safely, 10 seconds Unsupported Stance- Eyes Open Supervision to maintain Reaching Forward Standing Safely, 5 inches Pick- Up Object From Floor Requires Supervision Look Behind Shoulder - Standing Shifts Weight Unilateral Turning 360 Degrees Turns slowly, but safely Unsupported Stance, Alternating Feet on Assist to Prevent Fall Stair Unsupported Tandem Stance Small Step- 30 seconds Unilateral Leg Stance Lifts Leg/Unable to Hold Total Score Little Total Score (out of 56 points) 36 Little Impairment Rating 20 to 39% Impaired (Score 34- 44) PT-OP-E Functional Tests Start: 09/12/18 17:38 Freq: Status: Active Protocol: Document 09/12/18 16:45 DCW (Rec: 09/13/18 09:36 DCW [id number]) Functional Tests 6 Minute Walk Test Distance 349 Device Used walking stick Comments stopped after 2:58, one standing rest break Timed Up and Go (TUG) Score 22.71 Comments 3-trial average (22.79, 23.19, 22.15) TUG Impairment Rating 100% Impaired (Score 20) PT-OP-F Manual Assessment Start: 09/12/18 17:38 Freq: Status: Active Protocol: Document 09/12/18 16:45 DCW (Rec: 09/13/18 09:36 DCW [id number]) Manual Assessments Soft Tissue Assessment Soft Tissue Mobility Assessment Moderate tone bilateral levator, bilateral upper trap, bilateral SCM, R>L PT-OP-K Range of Motion Start: 09/12/18 17:38 Freq: Status: Active Protocol: Document 09/12/18 16:45 DCW (Rec: 09/13/18 09:38 DCW [id number]) Cervical Spine Range of Motion Cervical Spine Active Degrees Testing Position Sitting Flexion 45 Extension 50 Rotation Left 70 Rotation Right 62 Lateral Flexion Left 23 Lateral Flexion Right 25 ROM Limitations Soft Tissue Tightness Bony Restriction Muscle Tone PT-OP-M Strength Start: 09/12/18 17:38 Freq: Status: Active Protocol: Document 09/12/18 16:45 DCW (Rec: 09/13/18 09:38 DCW [id number]) Hip Strength Hip Manual Muscle Testing Right Flexion (L2) 4 Good Abduction 4 Good Adduction 4 Good External Rotation 4 Good Internal Rotation 4 Good Left Flexion (L2) 4+ Good+ Abduction 4+ Good+ Adduction 4+ Good+ External Rotation 4+ Good+ Internal Rotation 4+ Good+ Knee Strength Knee Manual Muscle Testing Right Flexion (S2) 4 Good Extension (L3) 4- Good- Left Flexion (S2) 4+ Good+ Extension (L3) 4 Good PT-OP-Q Treatments Start: 09/12/18 17:38 Freq: Status: Active Protocol: Document 10/09/18 12:05 DCW (Rec: 10/09/18 12:49 DCW [id number]) Cardio Equipment Recumbent Elliptical (Biodex) Duration (Minutes) 7 Resistance 5 Seat Position 13 Gym Equipment Shuttle Recovery Unilateral Squats Resistance 37# Shuttle Recovery Platform Stable Bilateral Squats Resistance 87# Shuttle Recovery Platform Stable Therapeutic Exercises Other Exercises Resisted Ambulation Other Exercise Name Side-stepping Resistance Green Equipment Used T-band Manual Therapy Treatment Soft Tissue Mobilization 3 Body Location Cervical paraspinals Mobilization Type Strumming Sustained Pressure Trigger Point Release Intensity/Depth Deep Body Position Supine 2 Body Location Suboccipitals Mobilization Type Sustained Pressure Intensity/Depth Superficial Body Position Supine 1 Body Location Upper Trap Mobilization Type Strain/Counterstrain Sustained Pressure Trigger Point Release Intensity/Depth Moderate Body Position Supine Manual Traction Cervical Body Position Supine PT-OP-T Assessment and Plan Start: 09/12/18 17:38 Freq: Status: Active Protocol: Document 10/09/18 12:05 DCW (Rec: 10/09/18 12:49 DCW [id number]) Physical Therapy Assessment Impairments Impairments Activity Tolerance Balance Gait ROM Soft Tissue Mobility Strength Goals Five Impairment Moderate muscle tone in bilateral levator, upper trap, SCM Short Term Goal (STG) Tone in pt's upper trap, levator, and SCM should be at worst mild bilaterally STG Duration 10/13/18 Four Impairment Limited cervical ROM Retirement Goal (LTG) Cervical lateral flexion to 35 ? bilaterally LTG Duration 11/12/18 Three Impairment Pt unable to complete six minute walk test. Ambulates a total of 349' Line Crewman Goal (LTG) Pt to complete 6 MWT with an overall speed of at least 1.97 ft/sec (total of 709'). A speed slower than that indicates future functional decline in older adults. Two Impairment Pt at an increased falls risk Short Term Goal (STG) Pt to complete TUG with a three-trial average of 15 seconds STG Duration 10/13/18 Line Crewman Goal (LTG) Pt to score 46/56 on Little Balance scale LTG Duration 11/12/18 One Impairment Pt reports a generalized feeling of imbalance when walking Retirement Goal (LTG) Pt to tolerate walk from [facility] to his appointment at [facility] without requiring a rest break LTG Duration 11/12/18 Assessment Summary Assessment Pt presented with decreased tone today, however was complaining of recent worsening of symptoms, however this may be associated with the recent move of his into a memory clinic, which he has had a difficulty time adjusting to. Physical Therapy Plan Frequency and Duration Frequency of Treatment 2x/Week Duration of Treatment 10 weeks Plan of Care Start Date 09/12/18 Plan of Care End Date 11/21/18 Therapeutic Interventions Therapeutic Interventions Aquatic Therapy Balance Training Home Exercise Program Joint Mobilizations Manual Therapy Neuromuscular Re-education Patient/Caregiver Education Self-Care/Home Management Soft Tissue Mobilization Therapeutic Activities Therapeutic Exercises Modalities Cold Pack/Ice Massage Electric Stimulation Hot Packs Next Visit Focus/Plan Next Note Type Treatment Note Next Visit Plan STM to cervical musculature, balance training, increased activity tolerance
--- NOTE | 2018-10-18 15:14 | PT.OTN ---
Current Diagnoses Muscle weakness (generalized) (10/18/18) Other abnormalities of gait and mobility (10/18/18) Other fatigue (10/18/18) Physical Therapy Treatment Note PT-OP-A Visit Information Start: 09/12/18 17:38 Freq: Status: Active Protocol: Document 10/18/18 14:35 DCW (Rec: 10/18/18 15:14 DCW [id number]) Out-Patient Physical Therapy Visit Information Visit Information Visit Type Treatment Note Visit Note Pt arrived 5 min late Visit Start Time 14:35 Visit Stop Time 15:15 Total Visit Minutes 40 Visit Number 9 Number of STEAM TANK OPERATOR Visits 0 Evaluation Information Evaluation Date 09/12/18 PT-OP-B Current Condition Start: 09/12/18 17:38 Freq: Status: Active Protocol: Document 09/12/18 16:45 DCW (Rec: 09/12/18 17:54 DCW [id number]) Current Condition History of Current Condition Onset Date Multi-year history Current Complaints Imbalance, fatigue History of Current Condition Pt is an 82 year old male with a long-standing history with this clinic. Pt has previously been treated for generalized imbalance and fatigue. Pt has a vague sense of imbalance that has thus far been unable to have been diagnosed by multiple specialists, and he describes as feeling off balance with fuzzy vision. When pt had been treated at this clinic previously, there was some progress made with working on decreasing his cervical tone and balance training. Pt notes that he wants to see if all the progress I made last time is still there, or if I've declined at all. Pt admits that he has not been taking good care of himself, and has been focused on his as she has declined with her dementia. Pt notes that just today, his moved out of their shared apartment in [facility] to go to a memory care clinic in [place]. Pt admits that he is not thrilled about it, and didn't have any say in the timing of any of this. Pt reports that he always has his walking stick with him when he is out of his apartment, and admits that he is unable to walk very far due to fatigue. Prior Treatments and Tests History of multiple rounds of physical therapy at this clinic with varied results Treatment Goals Patient/Caregiver Goals Pt wants to improve his balance and activity tolerance Prior Functional Status Baseline Function- ADL's Needs Assist Baseline Function- Mobility Needs Assist Current Functional Impairments (Reported) Functional Limitations- Mobility/Gait Pt uses a walking stick and has a poor consistance to his path deviation. Pt reports that sometimes his balance feels better if his glasses are off, but not all the time. Personal Factors Other Personal Factors That May Effect Recently placed on Therapy/Recovery antidepressants due to his 's decline, Neuropathy, CHF, Pacemaker PT-OP-C Subjective Start: 09/12/18 17:38 Freq: Status: Active Protocol: Document 10/18/18 14:35 DCW (Rec: 10/18/18 15:14 DCW [id number]) OP-PT Subjective Patient Comments Patient Comments Pt notes he feels tippy and fuzzy today. PT-OP-D Balance Start: 09/12/18 17:38 Freq: Status: Active Protocol: Document 09/12/18 16:45 DCW (Rec: 09/13/18 09:36 DCW [id number]) Balance Tests Little Balance Test Little Balance Test Score 36/56 Little Impairment Rating 20 to 39% Impaired (Score 34- 44) Little Balance Assessment Evaluation Sitting to Standing Ability Independent w/Hands Unsupported Stance 30 seconds Sitting Unsupported, Feet on Floor Safely- 2 minutes Standing to Sitting Ability Safely, Minimal Hand Use Transfer Ability Safely, Minimal Hand Use Unsupported Stance- Eyes Closed Safely, 10 seconds Unsupported Stance- Eyes Open Supervision to maintain Reaching Forward Standing Safely, 5 inches Pick- Up Object From Floor Requires Supervision Look Behind Shoulder - Standing Shifts Weight Unilateral Turning 360 Degrees Turns slowly, but safely Unsupported Stance, Alternating Feet on Assist to Prevent Fall Stair Unsupported Tandem Stance Small Step- 30 seconds Unilateral Leg Stance Lifts Leg/Unable to Hold Total Score Little Total Score (out of 56 points) 36 Little Impairment Rating 20 to 39% Impaired (Score 34- 44) PT-OP-E Functional Tests Start: 09/12/18 17:38 Freq: Status: Active Protocol: Document 09/12/18 16:45 DCW (Rec: 09/13/18 09:36 DCW [id number]) Functional Tests 6 Minute Walk Test Distance 349 Device Used walking stick Comments stopped after 2:58, one standing rest break Timed Up and Go (TUG) Score 22.71 Comments 3-trial average (22.79, 23.19, 22.15) TUG Impairment Rating 100% Impaired (Score 20) PT-OP-F Manual Assessment Start: 09/12/18 17:38 Freq: Status: Active Protocol: Document 09/12/18 16:45 DCW (Rec: 09/13/18 09:36 DCW [id number]) Manual Assessments Soft Tissue Assessment Soft Tissue Mobility Assessment Moderate tone bilateral levator, bilateral upper trap, bilateral SCM, R>L PT-OP-K Range of Motion Start: 09/12/18 17:38 Freq: Status: Active Protocol: Document 09/12/18 16:45 DCW (Rec: 09/13/18 09:38 DCW [id number]) Cervical Spine Range of Motion Cervical Spine Active Degrees Testing Position Sitting Flexion 45 Extension 50 Rotation Left 70 Rotation Right 62 Lateral Flexion Left 23 Lateral Flexion Right 25 ROM Limitations Soft Tissue Tightness,Bony Restriction,Muscle Tone PT-OP-M Strength Start: 09/12/18 17:38 Freq: Status: Active Protocol: Document 09/12/18 16:45 DCW (Rec: 09/13/18 09:38 DCW [id number]) Hip Strength Hip Manual Muscle Testing Right Flexion (L2) 4 Good Abduction 4 Good Adduction 4 Good External Rotation 4 Good Internal Rotation 4 Good Left Flexion (L2) 4+ Good+ Abduction 4+ Good+ Adduction 4+ Good+ External Rotation 4+ Good+ Internal Rotation 4+ Good+ Knee Strength Knee Manual Muscle Testing Right Flexion (S2) 4 Good Extension (L3) 4- Good- Left Flexion (S2) 4+ Good+ Extension (L3) 4 Good PT-OP-Q Treatments Start: 09/12/18 17:38 Freq: Status: Active Protocol: Document 10/18/18 14:35 DCW (Rec: 10/18/18 15:14 DCW [id number]) Cardio Equipment Recumbent Elliptical (Biodex) Duration (Minutes) 6 Resistance 5 Seat Position 11 Gym Equipment Shuttle Recovery Unilateral Squats Resistance 37# Shuttle Recovery Platform Stable Bilateral Squats Resistance 87# Shuttle Recovery Platform Stable Therapeutic Exercises Other Exercises Resisted Ambulation Other Exercise Name Side-stepping Resistance Green Equipment Used T-band Manual Therapy Treatment Soft Tissue Mobilization 3 Body Location Cervical paraspinals Mobilization Type Strumming,Sustained Pressure, Trigger Point Release Intensity/Depth Deep Body Position Supine 2 Body Location Suboccipitals Mobilization Type Sustained Pressure Intensity/Depth Superficial Body Position Supine 1 Body Location Upper Trap Mobilization Type Strain/Counterstrain,Sustained Pressure,Trigger Point Release Intensity/Depth Moderate Body Position Supine Manual Traction Cervical Body Position Supine PT-OP-T Assessment and Plan Start: 09/12/18 17:38 Freq: Status: Active Protocol: Document 10/18/18 14:35 DCW (Rec: 10/18/18 15:14 DCW [id number]) Physical Therapy Assessment Impairments Impairments Activity Tolerance,Balance, Gait,ROM,Soft Tissue Mobility, Strength Goals Five Impairment Moderate muscle tone in bilateral levator, upper trap, SCM Short Term Goal (STG) Tone in pt's upper trap, levator, and SCM should be at worst mild bilaterally STG Duration 10/13/18 Four Impairment Limited cervical ROM Detention Goal (LTG) Cervical lateral flexion to 35 ? bilaterally LTG Duration 11/12/18 Three Impairment Pt unable to complete six minute walk test. Ambulates a total of 349' Detention Goal (LTG) Pt to complete 6 MWT with an overall speed of at least 1.97 ft/sec (total of 709'). A speed slower than that indicates future functional decline in older adults. Two Impairment Pt at an increased falls risk Short Term Goal (STG) Pt to complete TUG with a three-trial average of 15 seconds STG Duration 10/13/18 Emergency Dept Tech Goal (LTG) Pt to score 46/56 on Little Balance scale LTG Duration 11/12/18 One Impairment Pt reports a generalized feeling of imbalance when walking Emergency Dept Tech Goal (LTG) Pt to tolerate walk from [facility] to his appointment at [facility] PT without requiring a rest break LTG Duration 11/12/18 Assessment Summary Assessment Pt symptoms continue to improve, much less tone overall through cervical spine , however still demonstrates generalized weakness and decreased activity tolerance. Physical Therapy Plan Frequency and Duration Frequency of Treatment 2x/Week Duration of Treatment 10 weeks Plan of Care Start Date 09/12/18 Plan of Care End Date 11/21/18 Therapeutic Interventions Therapeutic Interventions Aquatic Therapy,Balance Training,Home Exercise Program ,Joint Mobilizations,Manual Therapy,Neuromuscular Re- education,Patient/Caregiver Education,Self-Care/Home Management,Soft Tissue Mobilization,Therapeutic Activities,Therapeutic Exercises Modalities Cold Pack/Ice Massage,Electric Stimulation,Hot Packs Next Visit Focus/Plan Next Note Type Treatment Note Next Visit Plan [facility] to cervical musculature, balance training, increased activity tolerance
--- NOTE | 2018-10-30 11:14 | PT.OTN ---
Current Diagnoses Muscle weakness (generalized) (10/30/18) Other abnormalities of gait and mobility (10/30/18) Other fatigue (10/30/18) Physical Therapy Treatment Note PT-OP-A Visit Information Start: 09/12/18 17:38 Freq: Status: Active Protocol: Document 10/30/18 10:30 DCW (Rec: 10/30/18 11:14 DCW [id number]) Out-Patient Physical Therapy Visit Information Visit Information Visit Type Treatment Note Visit Start Time 10:30 Visit Stop Time 11:15 Total Visit Minutes 45 Visit Number 10 Number of VALET Visits 0 Evaluation Information Evaluation Date 09/12/18 PT-OP-B Current Condition Start: 09/12/18 17:38 Freq: Status: Active Protocol: Document 09/12/18 16:45 DCW (Rec: 09/12/18 17:54 DCW [id number]) Current Condition History of Current Condition Onset Date Multi-year history Current Complaints Imbalance, fatigue History of Current Condition Pt is an 82 year old male with a long-standing history with this clinic. Pt has previously been treated for generalized imbalance and fatigue. Pt has a vague sense of imbalance that has thus far been unable to have been diagnosed by multiple specialists, and he describes as feeling off balance with fuzzy vision. When pt had been treated at this clinic previously, there was some progress made with working on decreasing his cervical tone and balance training. Pt notes that he wants to see if all the progress I made last time is still there, or if I've declined at all. Pt admits that he has not been taking good care of himself, and has been focused on his as she has declined with her dementia. Pt notes that just today, his moved out of their shared apartment in [facility] to go to a memory care clinic in [place]. Pt admits that he is not thrilled about it, and didn't have any say in the timing of any of this. Pt reports that he always has his walking stick with him when he is out of his apartment, and admits that he is unable to walk very far due to fatigue. Prior Treatments and Tests History of multiple rounds of physical therapy at this clinic with varied results Treatment Goals Patient/Caregiver Goals Pt wants to improve his balance and activity tolerance Prior Functional Status Baseline Function- ADL's Needs Assist Baseline Function- Mobility Needs Assist Current Functional Impairments (Reported) Functional Limitations- Mobility/Gait Pt uses a walking stick and has a poor consistance to his path deviation. Pt reports that sometimes his balance feels better if his glasses are off, but not all the time. Personal Factors Other Personal Factors That May Effect Recently placed on Therapy/Recovery antidepressants due to his 's decline, Neuropathy, CHF, Pacemaker PT-OP-C Subjective Start: 09/12/18 17:38 Freq: Status: Active Protocol: Document 10/30/18 10:30 DCW (Rec: 10/30/18 11:14 DCW [id number]) OP-PT Subjective Patient Comments Patient Comments Pt presents today reporting that overall, he does not feel like there has been much progress with therapy. Pt would like to try to focus more on balance, to see if this makes any difference. PT-OP-D Balance Start: 09/12/18 17:38 Freq: Status: Active Protocol: Document 09/12/18 16:45 DCW (Rec: 09/13/18 09:36 DCW [id number]) Balance Tests Little Balance Test Little Balance Test Score 36/56 Little Impairment Rating 20 to 39% Impaired (Score 34- 44) Little Balance Assessment Evaluation Sitting to Standing Ability Independent w/Hands Unsupported Stance 30 seconds Sitting Unsupported, Feet on Floor Safely- 2 minutes Standing to Sitting Ability Safely, Minimal Hand Use Transfer Ability Safely, Minimal Hand Use Unsupported Stance- Eyes Closed Safely, 10 seconds Unsupported Stance- Eyes Open Supervision to maintain Reaching Forward Standing Safely, 5 inches Pick- Up Object From Floor Requires Supervision Look Behind Shoulder - Standing Shifts Weight Unilateral Turning 360 Degrees Turns slowly, but safely Unsupported Stance, Alternating Feet on Assist to Prevent Fall Stair Unsupported Tandem Stance Small Step- 30 seconds Unilateral Leg Stance Lifts Leg/Unable to Hold Total Score Little Total Score (out of 56 points) 36 Little Impairment Rating 20 to 39% Impaired (Score 34- 44) PT-OP-E Functional Tests Start: 09/12/18 17:38 Freq: Status: Active Protocol: Document 09/12/18 16:45 DCW (Rec: 09/13/18 09:36 DCW [id number]) Functional Tests 6 Minute Walk Test Distance 349 Device Used walking stick Comments stopped after 2:58, one standing rest break Timed Up and Go (TUG) Score 22.71 Comments 3-trial average (22.79, 23.19, 22.15) TUG Impairment Rating 100% Impaired (Score 20) PT-OP-F Manual Assessment Start: 09/12/18 17:38 Freq: Status: Active Protocol: Document 09/12/18 16:45 DCW (Rec: 09/13/18 09:36 DCW [id number]) Manual Assessments Soft Tissue Assessment Soft Tissue Mobility Assessment Moderate tone bilateral levator, bilateral upper trap, bilateral SCM, R>L PT-OP-K Range of Motion Start: 09/12/18 17:38 Freq: Status: Active Protocol: Document 09/12/18 16:45 DCW (Rec: 09/13/18 09:38 DCW [id number]) Cervical Spine Range of Motion Cervical Spine Active Degrees Testing Position Sitting Flexion 45 Extension 50 Rotation Left 70 Rotation Right 62 Lateral Flexion Left 23 Lateral Flexion Right 25 ROM Limitations Soft Tissue Tightness,Bony Restriction,Muscle Tone PT-OP-M Strength Start: 09/12/18 17:38 Freq: Status: Active Protocol: Document 09/12/18 16:45 DCW (Rec: 09/13/18 09:38 DCW [id number]) Hip Strength Hip Manual Muscle Testing Right Flexion (L2) 4 Good Abduction 4 Good Adduction 4 Good External Rotation 4 Good Internal Rotation 4 Good Left Flexion (L2) 4+ Good+ Abduction 4+ Good+ Adduction 4+ Good+ External Rotation 4+ Good+ Internal Rotation 4+ Good+ Knee Strength Knee Manual Muscle Testing Right Flexion (S2) 4 Good Extension (L3) 4- Good- Left Flexion (S2) 4+ Good+ Extension (L3) 4 Good PT-OP-Q Treatments Start: 09/12/18 17:38 Freq: Status: Active Protocol: Document 10/30/18 10:30 DCW (Rec: 10/30/18 11:14 DCW [id number]) Cardio Equipment Recumbent Elliptical (Biodex) Duration (Minutes) 6 Resistance 5 Seat Position 11 Gym Equipment Shuttle Balance 1 Details Red Comments Wide ARMANI, Staggered Stance Therapeutic Exercises Other Exercises Resisted Ambulation Other Exercise Name Side-stepping Resistance Green Equipment Used T-band Neuro Re-Education Treatment Balance Activities 4 Details Hurdles Comments Forward, Lateral 3 Details Retro Ambulation 2 Details Eyes closed Ambulation 1 Details Tandem Ambulation Surface near rail PT-OP-T Assessment and Plan Start: 09/12/18 17:38 Freq: Status: Active Protocol: Document 10/30/18 10:30 DCW (Rec: 10/30/18 11:14 DCW [id number]) Physical Therapy Assessment Impairments Impairments Activity Tolerance,Balance, Gait,ROM,Soft Tissue Mobility, Strength Goals Five Impairment Moderate muscle tone in bilateral levator, upper trap, SCM Short Term Goal (STG) Tone in pt's upper trap, levator, and SCM should be at worst mild bilaterally STG Duration 10/13/18 Four Impairment Limited cervical ROM Modeling Teacher Goal (LTG) Cervical lateral flexion to 35 ? bilaterally LTG Duration 11/12/18 Three Impairment Pt unable to complete six minute walk test. Ambulates a total of 349' Modeling Teacher Goal (LTG) Pt to complete 6 MWT with an overall speed of at least 1.97 ft/sec (total of 709'). A speed slower than that indicates future functional decline in older adults. Two Impairment Pt at an increased falls risk Short Term Goal (STG) Pt to complete TUG with a three-trial average of 15 seconds STG Duration 10/13/18 Modeling Teacher Goal (LTG) Pt to score 46/56 on Little Balance scale LTG Duration 11/12/18 One Impairment Pt reports a generalized feeling of imbalance when walking Modeling Teacher Goal (LTG) Pt to tolerate walk from [facility] to his appointment at [facility] PT without requiring a rest break LTG Duration 11/12/18 Assessment Summary Assessment Pt agreeable to focus on balance training the next few appointments, and if he still demonstrates no change in his subjective symptoms, would likely be appropriate for discharge. Physical Therapy Plan Frequency and Duration Frequency of Treatment 2x/Week Duration of Treatment 10 weeks Plan of Care Start Date 09/12/18 Plan of Care End Date 11/21/18 Therapeutic Interventions Therapeutic Interventions Aquatic Therapy,Balance Training,Home Exercise Program ,Joint Mobilizations,Manual Therapy,Neuromuscular Re- education,Patient/Caregiver Education,Self-Care/Home Management,Soft Tissue Mobilization,Therapeutic Activities,Therapeutic Exercises Modalities Cold Pack/Ice Massage,Electric Stimulation,Hot Packs Next Visit Focus/Plan Next Note Type Treatment Note Next Visit Plan [facility] to cervical musculature, balance training, increased activity tolerance
--- NOTE | 2018-11-02 12:46 | PT.OTN ---
Current Diagnoses Muscle weakness (generalized) (11/02/18) Other abnormalities of gait and mobility (11/02/18) Other fatigue (11/02/18) Physical Therapy Treatment Note PT-OP-A Visit Information Start: 09/12/18 17:38 Freq: Status: Active Protocol: Document 11/02/18 12:00 DCW (Rec: 11/02/18 12:46 DCW [id number]) Out-Patient Physical Therapy Visit Information Visit Information Visit Type Treatment Note Visit Start Time 12:00 Visit Stop Time 12:45 Total Visit Minutes 45 Visit Number 11 Number of POPULATION GENETICIST Visits 0 Evaluation Information Evaluation Date 09/12/18 PT-OP-B Current Condition Start: 09/12/18 17:38 Freq: Status: Active Protocol: Document 09/12/18 16:45 DCW (Rec: 09/12/18 17:54 DCW [id number]) Current Condition History of Current Condition Onset Date Multi-year history Current Complaints Imbalance, fatigue History of Current Condition Pt is an 82 year old male with a long-standing history with this clinic. Pt has previously been treated for generalized imbalance and fatigue. Pt has a vague sense of imbalance that has thus far been unable to have been diagnosed by multiple specialists, and he describes as feeling off balance with fuzzy vision. When pt had been treated at this clinic previously, there was some progress made with working on decreasing his cervical tone and balance training. Pt notes that he wants to see if all the progress I made last time is still there, or if I've declined at all. Pt admits that he has not been taking good care of himself, and has been focused on his as she has declined with her dementia. Pt notes that just today, his moved out of their shared apartment in [facility] to go to a memory care clinic in [place]. Pt admits that he is not thrilled about it, and didn't have any say in the timing of any of this. Pt reports that he always has his walking stick with him when he is out of his apartment, and admits that he is unable to walk very far due to fatigue. Prior Treatments and Tests History of multiple rounds of physical therapy at this clinic with varied results Treatment Goals Patient/Caregiver Goals Pt wants to improve his balance and activity tolerance Prior Functional Status Baseline Function- ADL's Needs Assist Baseline Function- Mobility Needs Assist Current Functional Impairments (Reported) Functional Limitations- Mobility/Gait Pt uses a walking stick and has a poor consistance to his path deviation. Pt reports that sometimes his balance feels better if his glasses are off, but not all the time. Personal Factors Other Personal Factors That May Effect Recently placed on Therapy/Recovery antidepressants due to his 's decline, Neuropathy, CHF, Pacemaker PT-OP-C Subjective Start: 09/12/18 17:38 Freq: Status: Active Protocol: Document 11/02/18 12:00 DCW (Rec: 11/02/18 12:46 DCW [id number]) OP-PT Subjective Patient Comments Patient Comments Pt notes he has not been using the Nu-step over at [facility] as frequently as he should be. Also reports that his feet are swollen today. PT-OP-D Balance Start: 09/12/18 17:38 Freq: Status: Active Protocol: Document 09/12/18 16:45 DCW (Rec: 09/13/18 09:36 DCW [id number]) Balance Tests Little Balance Test Little Balance Test Score 36/56 Little Impairment Rating 20 to 39% Impaired (Score 34- 44) Little Balance Assessment Evaluation Sitting to Standing Ability Independent w/Hands Unsupported Stance 30 seconds Sitting Unsupported, Feet on Floor Safely- 2 minutes Standing to Sitting Ability Safely, Minimal Hand Use Transfer Ability Safely, Minimal Hand Use Unsupported Stance- Eyes Closed Safely, 10 seconds Unsupported Stance- Eyes Open Supervision to maintain Reaching Forward Standing Safely, 5 inches Pick- Up Object From Floor Requires Supervision Look Behind Shoulder - Standing Shifts Weight Unilateral Turning 360 Degrees Turns slowly, but safely Unsupported Stance, Alternating Feet on Assist to Prevent Fall Stair Unsupported Tandem Stance Small Step- 30 seconds Unilateral Leg Stance Lifts Leg/Unable to Hold Total Score Little Total Score (out of 56 points) 36 Little Impairment Rating 20 to 39% Impaired (Score 34- 44) PT-OP-E Functional Tests Start: 09/12/18 17:38 Freq: Status: Active Protocol: Document 09/12/18 16:45 DCW (Rec: 09/13/18 09:36 DCW [id number]) Functional Tests 6 Minute Walk Test Distance 349 Device Used walking stick Comments stopped after 2:58, one standing rest break Timed Up and Go (TUG) Score 22.71 Comments 3-trial average (22.79, 23.19, 22.15) TUG Impairment Rating 100% Impaired (Score 20) PT-OP-F Manual Assessment Start: 09/12/18 17:38 Freq: Status: Active Protocol: Document 09/12/18 16:45 DCW (Rec: 09/13/18 09:36 DCW [id number]) Manual Assessments Soft Tissue Assessment Soft Tissue Mobility Assessment Moderate tone bilateral levator, bilateral upper trap, bilateral SCM, R>L PT-OP-K Range of Motion Start: 09/12/18 17:38 Freq: Status: Active Protocol: Document 09/12/18 16:45 DCW (Rec: 09/13/18 09:38 DCW [id number]) Cervical Spine Range of Motion Cervical Spine Active Degrees Testing Position Sitting Flexion 45 Extension 50 Rotation Left 70 Rotation Right 62 Lateral Flexion Left 23 Lateral Flexion Right 25 ROM Limitations Soft Tissue Tightness,Bony Restriction,Muscle Tone PT-OP-M Strength Start: 09/12/18 17:38 Freq: Status: Active Protocol: Document 09/12/18 16:45 DCW (Rec: 09/13/18 09:38 DCW [id number]) Hip Strength Hip Manual Muscle Testing Right Flexion (L2) 4 Good Abduction 4 Good Adduction 4 Good External Rotation 4 Good Internal Rotation 4 Good Left Flexion (L2) 4+ Good+ Abduction 4+ Good+ Adduction 4+ Good+ External Rotation 4+ Good+ Internal Rotation 4+ Good+ Knee Strength Knee Manual Muscle Testing Right Flexion (S2) 4 Good Extension (L3) 4- Good- Left Flexion (S2) 4+ Good+ Extension (L3) 4 Good PT-OP-Q Treatments Start: 09/12/18 17:38 Freq: Status: Active Protocol: Document 11/02/18 12:00 DCW (Rec: 11/02/18 12:46 DCW [id number]) Cardio Equipment Recumbent Elliptical (Biodex) Duration (Minutes) 6 Resistance 5 Seat Position 11 Gym Equipment Shuttle Recovery Unilateral Squats Resistance 37# Shuttle Recovery Platform Stable Bilateral Squats Resistance 87# Shuttle Recovery Platform Stable Shuttle Balance 1 Details Red Comments Wide ARMANI, Staggered Stance Therapeutic Exercises Other Exercises Resisted Ambulation Other Exercise Name Side-stepping Resistance Green Equipment Used T-band Neuro Re-Education Treatment Balance Activities 6 Details Amb over foam stepping-stones Equipment /c and /s walking stick 5 Details Tandem Stance Surface Blue Foam Equipment @ rail 1 Details Tandem Ambulation Surface near rail PT-OP-T Assessment and Plan Start: 09/12/18 17:38 Freq: Status: Active Protocol: Document 11/02/18 12:00 DCW (Rec: 11/02/18 12:46 DCW [id number]) Physical Therapy Assessment Impairments Impairments Activity Tolerance,Balance, Gait,ROM,Soft Tissue Mobility, Strength Goals Five Impairment Moderate muscle tone in bilateral levator, upper trap, SCM Short Term Goal (STG) Tone in pt's upper trap, levator, and SCM should be at worst mild bilaterally STG Duration 10/13/18 Four Impairment Limited cervical ROM [facility] Goal (LTG) Cervical lateral flexion to 35 ? bilaterally LTG Duration 11/12/18 Three Impairment Pt unable to complete six minute walk test. Ambulates a total of 349' [facility] Goal (LTG) Pt to complete 6 MWT with an overall speed of at least 1.97 ft/sec (total of 709'). A speed slower than that indicates future functional decline in older adults. Two Impairment Pt at an increased falls risk Short Term Goal (STG) Pt to complete TUG with a three-trial average of 15 seconds STG Duration 10/13/18 [facility] Goal (LTG) Pt to score 46/56 on Little Balance scale LTG Duration 11/12/18 One Impairment Pt reports a generalized feeling of imbalance when walking Material Carrier Goal (LTG) Pt to tolerate walk from [facility] to his appointment at 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 Pt has an upcoming POC renewal, will decide then to discharge or continue. Physical Therapy Plan Frequency and Duration Frequency of Treatment 2x/Week Duration of Treatment 10 weeks Plan of Care Start Date 09/12/18 Plan of Care End Date 11/21/18 Therapeutic Interventions Therapeutic Interventions Aquatic Therapy,Balance Training,Home Exercise Program ,Joint Mobilizations,Manual Therapy,Neuromuscular Re- education,Patient/Caregiver Education,Self-Care/Home Management,Soft Tissue Mobilization,Therapeutic Activities,Therapeutic Exercises Modalities Cold Pack/Ice Massage,Electric Stimulation,Hot Packs Next Visit Focus/Plan Next Note Type Treatment Note Next Visit Plan STM to cervical musculature, balance training, increased activity tolerance
--- NOTE | 2018-11-06 14:30 | PT.OTN ---
Current Diagnoses Muscle weakness (generalized) (11/06/18) Other abnormalities of gait and mobility (11/06/18) Other fatigue (11/06/18) Physical Therapy Treatment Note PT-OP-A Visit Information Start: 09/12/18 17:38 Freq: Status: Active Protocol: Document 11/06/18 13:45 DCW (Rec: 11/06/18 14:29 DCW [id number]) Out-Patient Physical Therapy Visit Information Visit Information Visit Type Treatment Note Visit Start Time 13:45 Visit Stop Time 14:30 Total Visit Minutes 45 Visit Number 12 Number of BOX ESTIMATOR Visits 0 Evaluation Information Evaluation Date 09/12/18 PT-OP-B Current Condition Start: 09/12/18 17:38 Freq: Status: Active Protocol: Document 09/12/18 16:45 DCW (Rec: 09/12/18 17:54 DCW [id number]) Current Condition History of Current Condition Onset Date Multi-year history Current Complaints Imbalance, fatigue History of Current Condition Pt is an 82 year old male with a long-standing history with this clinic. Pt has previously been treated for generalized imbalance and fatigue. Pt has a vague sense of imbalance that has thus far been unable to have been diagnosed by multiple specialists, and he describes as feeling off balance with fuzzy vision. When pt had been treated at this clinic previously, there was some progress made with working on decreasing his cervical tone and balance training. Pt notes that he wants to see if all the progress I made last time is still there, or if I've declined at all. Pt admits that he has not been taking good care of himself, and has been focused on his as she has declined with her dementia. Pt notes that just today, his moved out of their shared apartment in [facility] to go to a memory care clinic in [place]. Pt admits that he is not thrilled about it, and didn't have any say in the timing of any of this. Pt reports that he always has his walking stick with him when he is out of his apartment, and admits that he is unable to walk very far due to fatigue. Prior Treatments and Tests History of multiple rounds of physical therapy at this clinic with varied results Treatment Goals Patient/Caregiver Goals Pt wants to improve his balance and activity tolerance Prior Functional Status Baseline Function- ADL's Needs Assist Baseline Function- Mobility Needs Assist Current Functional Impairments (Reported) Functional Limitations- Mobility/Gait Pt uses a walking stick and has a poor consistance to his path deviation. Pt reports that sometimes his balance feels better if his glasses are off, but not all the time. Personal Factors Other Personal Factors That May Effect Recently placed on Therapy/Recovery antidepressants due to his 's decline, Neuropathy, CHF, Pacemaker PT-OP-C Subjective Start: 09/12/18 17:38 Freq: Status: Active Protocol: Document 11/06/18 13:45 DCW (Rec: 11/06/18 14:29 DCW [id number]) OP-PT Subjective Patient Comments Patient Comments Pt is feeling a little fatigued today. PT-OP-D Balance Start: 09/12/18 17:38 Freq: Status: Active Protocol: Document 09/12/18 16:45 DCW (Rec: 09/13/18 09:36 DCW [id number]) Balance Tests Little Balance Test Little Balance Test Score 36/56 Little Impairment Rating 20 to 39% Impaired (Score 34- 44) Little Balance Assessment Evaluation Sitting to Standing Ability Independent w/Hands Unsupported Stance 30 seconds Sitting Unsupported, Feet on Floor Safely- 2 minutes Standing to Sitting Ability Safely, Minimal Hand Use Transfer Ability Safely, Minimal Hand Use Unsupported Stance- Eyes Closed Safely, 10 seconds Unsupported Stance- Eyes Open Supervision to maintain Reaching Forward Standing Safely, 5 inches Pick- Up Object From Floor Requires Supervision Look Behind Shoulder - Standing Shifts Weight Unilateral Turning 360 Degrees Turns slowly, but safely Unsupported Stance, Alternating Feet on Assist to Prevent Fall Stair Unsupported Tandem Stance Small Step- 30 seconds Unilateral Leg Stance Lifts Leg/Unable to Hold Total Score Little Total Score (out of 56 points) 36 Little Impairment Rating 20 to 39% Impaired (Score 34- 44) PT-OP-E Functional Tests Start: 09/12/18 17:38 Freq: Status: Active Protocol: Document 09/12/18 16:45 DCW (Rec: 09/13/18 09:36 DCW [id number]) Functional Tests 6 Minute Walk Test Distance 349 Device Used walking stick Comments stopped after 2:58, one standing rest break Timed Up and Go (TUG) Score 22.71 Comments 3-trial average (22.79, 23.19, 22.15) TUG Impairment Rating 100% Impaired (Score 20) PT-OP-F Manual Assessment Start: 09/12/18 17:38 Freq: Status: Active Protocol: Document 09/12/18 16:45 DCW (Rec: 09/13/18 09:36 DCW [id number]) Manual Assessments Soft Tissue Assessment Soft Tissue Mobility Assessment Moderate tone bilateral levator, bilateral upper trap, bilateral SCM, R>L PT-OP-K Range of Motion Start: 09/12/18 17:38 Freq: Status: Active Protocol: Document 09/12/18 16:45 DCW (Rec: 09/13/18 09:38 DCW [id number]) Cervical Spine Range of Motion Cervical Spine Active Degrees Testing Position Sitting Flexion 45 Extension 50 Rotation Left 70 Rotation Right 62 Lateral Flexion Left 23 Lateral Flexion Right 25 ROM Limitations Soft Tissue Tightness,Bony Restriction,Muscle Tone PT-OP-M Strength Start: 09/12/18 17:38 Freq: Status: Active Protocol: Document 09/12/18 16:45 DCW (Rec: 09/13/18 09:38 DCW [id number]) Hip Strength Hip Manual Muscle Testing Right Flexion (L2) 4 Good Abduction 4 Good Adduction 4 Good External Rotation 4 Good Internal Rotation 4 Good Left Flexion (L2) 4+ Good+ Abduction 4+ Good+ Adduction 4+ Good+ External Rotation 4+ Good+ Internal Rotation 4+ Good+ Knee Strength Knee Manual Muscle Testing Right Flexion (S2) 4 Good Extension (L3) 4- Good- Left Flexion (S2) 4+ Good+ Extension (L3) 4 Good PT-OP-Q Treatments Start: 09/12/18 17:38 Freq: Status: Active Protocol: Document 11/06/18 13:45 DCW (Rec: 11/06/18 14:29 DCW [id number]) Cardio Equipment Recumbent Bicycle Duration (Minutes) 5 Resistance 5 Seat Position 7 Gym Equipment Shuttle Recovery Unilateral Squats Resistance 50# Shuttle Recovery Platform Stable Bilateral Squats Resistance 87# Shuttle Recovery Platform Stable Shuttle Balance 1 Details Red Comments Wide ARMANI, Staggered Stance Therapeutic Exercises Other Exercises Resisted Ambulation Other Exercise Name Side-stepping, Fwd, Bkwd Resistance Green Equipment Used T-band Neuro Re-Education Treatment Balance Activities 7 Details Foam Marching Surface Hester foam 5 Details Tandem Stance Surface Blue Foam Equipment @ rail 1 Details Tandem Ambulation Surface // bars PT-OP-T Assessment and Plan Start: 09/12/18 17:38 Freq: Status: Active Protocol: Document 11/06/18 13:45 DCW (Rec: 11/06/18 14:29 DCW [id number]) Physical Therapy Assessment Impairments Impairments Activity Tolerance,Balance, Gait,ROM,Soft Tissue Mobility, Strength Goals Five Impairment Moderate muscle tone in bilateral levator, upper trap, SCM Short Term Goal (STG) Tone in pt's upper trap, levator, and SCM should be at worst mild bilaterally STG Duration 10/13/18 Four Impairment Limited cervical ROM Pomologist Goal (LTG) Cervical lateral flexion to 35 ? bilaterally LTG Duration 11/12/18 Three Impairment Pt unable to complete six minute walk test. Ambulates a total of 349' Pomologist Goal (LTG) Pt to complete 6 MWT with an overall speed of at least 1.97 ft/sec (total of 709'). A speed slower than that indicates future functional decline in older adults. Two Impairment Pt at an increased falls risk Short Term Goal (STG) Pt to complete TUG with a three-trial average of 15 seconds STG Duration 10/13/18 Pomologist Goal (LTG) Pt to score 46/56 on Little Balance scale LTG Duration 11/12/18 One Impairment Pt reports a generalized feeling of imbalance when walking Pomologist Goal (LTG) Pt to tolerate walk from [facility] to his appointment at [facility] PT without requiring a rest break LTG Duration 11/12/18 Assessment Summary Assessment Pt appears to be about the same as usual today. Physical Therapy Plan Frequency and Duration Frequency of Treatment 2x/Week Duration of Treatment 10 weeks Plan of Care Start Date 09/12/18 Plan of Care End Date 11/21/18 Therapeutic Interventions Therapeutic Interventions Aquatic Therapy,Balance Training,Home Exercise Program ,Joint Mobilizations,Manual Therapy,Neuromuscular Re- education,Patient/Caregiver Education,Self-Care/Home Management,Soft Tissue Mobilization,Therapeutic Activities,Therapeutic Exercises Modalities Cold Pack/Ice Massage,Electric Stimulation,Hot Packs Next Visit Focus/Plan Next Note Type Treatment Note Next Visit Plan STM to cervical musculature, balance training, increased activity tolerance
--- NOTE | 2018-11-08 14:10 | PT-OP ANOTE ---
Pt no-showed to his appointment today, 11/08/18
--- NOTE | 2018-11-13 14:58 | PT-OP ANOTE ---
Pt no showed his appointment on 11/13/18. Therapist phoned him, pt apologized, reported he laid down for a nap at noon, and didn't wake up until his phone rang just now at 3:00, missing his 1:45 appointment. Pt was reminded of his upcoming appointment on 11/15/18
--- NOTE | 2018-11-15 14:27 | PT.OTN ---
Current Diagnoses Muscle weakness (generalized) (11/15/18) Other abnormalities of gait and mobility (11/15/18) Other fatigue (11/15/18) Physical Therapy Treatment Note PT-OP-A Visit Information Start: 09/12/18 17:38 Freq: Status: Active Protocol: Document 11/15/18 13:50 DCW (Rec: 11/15/18 14:27 DCW [id number]) Out-Patient Physical Therapy Visit Information Visit Information Visit Type Treatment Note Visit Note Pt arrived 5 minutes late Visit Start Time 13:50 Visit Stop Time 14:30 Total Visit Minutes 40 Visit Number 13 Number of EPIC PRELUDE ANALYST Visits 0 Evaluation Information Evaluation Date 09/12/18 PT-OP-B Current Condition Start: 09/12/18 17:38 Freq: Status: Active Protocol: Document 09/12/18 16:45 DCW (Rec: 09/12/18 17:54 DCW [id number]) Current Condition History of Current Condition Onset Date Multi-year history Current Complaints Imbalance, fatigue History of Current Condition Pt is an 82 year old male with a long-standing history with this clinic. Pt has previously been treated for generalized imbalance and fatigue. Pt has a vague sense of imbalance that has thus far been unable to have been diagnosed by multiple specialists, and he describes as feeling off balance with fuzzy vision. When pt had been treated at this clinic previously, there was some progress made with working on decreasing his cervical tone and balance training. Pt notes that he wants to see if all the progress I made last time is still there, or if I've declined at all. Pt admits that he has not been taking good care of himself, and has been focused on his as she has declined with her dementia. Pt notes that just today, his moved out of their shared apartment in [facility] to go to a memory care clinic in [place]. Pt admits that he is not thrilled about it, and didn't have any say in the timing of any of this. Pt reports that he always has his walking stick with him when he is out of his apartment, and admits that he is unable to walk very far due to fatigue. Prior Treatments and Tests History of multiple rounds of physical therapy at this clinic with varied results Treatment Goals Patient/Caregiver Goals Pt wants to improve his balance and activity tolerance Prior Functional Status Baseline Function- ADL's Needs Assist Baseline Function- Mobility Needs Assist Current Functional Impairments (Reported) Functional Limitations- Mobility/Gait Pt uses a walking stick and has a poor consistance to his path deviation. Pt reports that sometimes his balance feels better if his glasses are off, but not all the time. Personal Factors Other Personal Factors That May Effect Recently placed on Therapy/Recovery antidepressants due to his 's decline, Neuropathy, CHF, Pacemaker PT-OP-C Subjective Start: 09/12/18 17:38 Freq: Status: Active Protocol: Document 11/15/18 13:50 DCW (Rec: 11/15/18 14:27 DCW [id number]) OP-PT Subjective Patient Comments Patient Comments I'm not as good as I'd like to be, but I'm also not as bad as I could be. PT-OP-D Balance Start: 09/12/18 17:38 Freq: Status: Active Protocol: Document 09/12/18 16:45 DCW (Rec: 09/13/18 09:36 DCW [id number]) Balance Tests Little Balance Test Little Balance Test Score 36/56 Little Impairment Rating 20 to 39% Impaired (Score 34- 44) Little Balance Assessment Evaluation Sitting to Standing Ability Independent w/Hands Unsupported Stance 30 seconds Sitting Unsupported, Feet on Floor Safely- 2 minutes Standing to Sitting Ability Safely, Minimal Hand Use Transfer Ability Safely, Minimal Hand Use Unsupported Stance- Eyes Closed Safely, 10 seconds Unsupported Stance- Eyes Open Supervision to maintain Reaching Forward Standing Safely, 5 inches Pick- Up Object From Floor Requires Supervision Look Behind Shoulder - Standing Shifts Weight Unilateral Turning 360 Degrees Turns slowly, but safely Unsupported Stance, Alternating Feet on Assist to Prevent Fall Stair Unsupported Tandem Stance Small Step- 30 seconds Unilateral Leg Stance Lifts Leg/Unable to Hold Total Score Little Total Score (out of 56 points) 36 Little Impairment Rating 20 to 39% Impaired (Score 34- 44) PT-OP-E Functional Tests Start: 09/12/18 17:38 Freq: Status: Active Protocol: Document 09/12/18 16:45 DCW (Rec: 09/13/18 09:36 DCW [id number]) Functional Tests 6 Minute Walk Test Distance 349 Device Used walking stick Comments stopped after 2:58, one standing rest break Timed Up and Go (TUG) Score 22.71 Comments 3-trial average (22.79, 23.19, 22.15) TUG Impairment Rating 100% Impaired (Score 20) PT-OP-F Manual Assessment Start: 09/12/18 17:38 Freq: Status: Active Protocol: Document 09/12/18 16:45 DCW (Rec: 09/13/18 09:36 DCW [id number]) Manual Assessments Soft Tissue Assessment Soft Tissue Mobility Assessment Moderate tone bilateral levator, bilateral upper trap, bilateral SCM, R>L PT-OP-K Range of Motion Start: 09/12/18 17:38 Freq: Status: Active Protocol: Document 09/12/18 16:45 DCW (Rec: 09/13/18 09:38 DCW [id number]) Cervical Spine Range of Motion Cervical Spine Active Degrees Testing Position Sitting Flexion 45 Extension 50 Rotation Left 70 Rotation Right 62 Lateral Flexion Left 23 Lateral Flexion Right 25 ROM Limitations Soft Tissue Tightness,Bony Restriction,Muscle Tone PT-OP-M Strength Start: 09/12/18 17:38 Freq: Status: Active Protocol: Document 09/12/18 16:45 DCW (Rec: 09/13/18 09:38 DCW [id number]) Hip Strength Hip Manual Muscle Testing Right Flexion (L2) 4 Good Abduction 4 Good Adduction 4 Good External Rotation 4 Good Internal Rotation 4 Good Left Flexion (L2) 4+ Good+ Abduction 4+ Good+ Adduction 4+ Good+ External Rotation 4+ Good+ Internal Rotation 4+ Good+ Knee Strength Knee Manual Muscle Testing Right Flexion (S2) 4 Good Extension (L3) 4- Good- Left Flexion (S2) 4+ Good+ Extension (L3) 4 Good PT-OP-Q Treatments Start: 09/12/18 17:38 Freq: Status: Active Protocol: Document 11/15/18 13:50 DCW (Rec: 11/15/18 14:27 DCW [id number]) Cardio Equipment Recumbent Elliptical (Biodex) Duration (Minutes) 6 Resistance 5 Seat Position 11 Gym Equipment Shuttle Recovery Unilateral Squats Resistance 50# Shuttle Recovery Platform Stable Bilateral Squats Resistance 87# Shuttle Recovery Platform Stable Shuttle Balance 1 Details Red Comments Wide ARMANI, Staggered Stance Therapeutic Exercises Other Exercises Resisted Ambulation Other Exercise Name Side-stepping, Fwd, Bkwd Resistance Green Equipment Used T-band Neuro Re-Education Treatment Balance Activities 6 Details Amb over foam stepping-stones Equipment /c and /s walking stick 5 Details Tandem Stance Surface Blue Foam Equipment @ rail PT-OP-T Assessment and Plan Start: 09/12/18 17:38 Freq: Status: Active Protocol: Document 11/15/18 13:50 DCW (Rec: 11/15/18 14:27 DCW [id number]) Physical Therapy Assessment Impairments Impairments Activity Tolerance,Balance, Gait,ROM,Soft Tissue Mobility, Strength Goals Five Impairment Moderate muscle tone in bilateral levator, upper trap, SCM Short Term Goal (STG) Tone in pt's upper trap, levator, and SCM should be at worst mild bilaterally STG Duration 10/13/18 Four Impairment Limited cervical ROM Group Home Goal (LTG) Cervical lateral flexion to 35 ? bilaterally LTG Duration 11/12/18 Three Impairment Pt unable to complete six minute walk test. Ambulates a total of 349' Grader Operator Goal (LTG) Pt to complete 6 MWT with an overall speed of at least 1.97 ft/sec (total of 709'). A speed slower than that indicates future functional decline in older adults. Two Impairment Pt at an increased falls risk Short Term Goal (STG) Pt to complete TUG with a three-trial average of 15 seconds STG Duration 10/13/18 Grader Operator Goal (LTG) Pt to score 46/56 on Little Balance scale LTG Duration 11/12/18 One Impairment Pt reports a generalized feeling of imbalance when walking Group Home Goal (LTG) Pt to tolerate walk from [facility] to his appointment at [facility] PT without requiring a rest break LTG Duration 11/12/18 Assessment Summary Assessment At the end of today's session, pt noted that he has no more visits scheduled, and he feels like there has not been enough progress to make scheduling more visits worth while. Pt will be discharged from skilled therapy at this time. Physical Therapy Plan Frequency and Duration Frequency of Treatment 2x/Week Duration of Treatment 10 weeks Plan of Care Start Date 09/12/18 Plan of Care End Date 11/21/18 Therapeutic Interventions Therapeutic Interventions Aquatic Therapy,Balance Training,Home Exercise Program ,Joint Mobilizations,Manual Therapy,Neuromuscular Re- education,Patient/Caregiver Education,Self-Care/Home Management,Soft Tissue Mobilization,Therapeutic Activities,Therapeutic Exercises Modalities Cold Pack/Ice Massage,Electric Stimulation,Hot Packs Discharge Physical Therapy Discharge Reasons Plateau in Progress Next Visit Focus/Plan Next Note Type Discharge Summary
== END 2018-11-15 14:45 ==
LOC: PHYS 13:45
PROVIDERS: PCP Family Medicine; Visit Provider Family Medicine
DX: R26.89 Other abnormalities of gait and mobility (principal); M62.81 Muscle weakness (generalized); R53.83 Other fatigue
CPT/HCPCS: 97110; 97112; 97140; 97162

== ENCOUNTER → 2019-03-29 09:25 | Outpatient (CLI) | payer MEDICARE, SELFPAY ==
[2017-11-29 11:41] VITALS: BMI 31.1
[2019-03-29 10:58] LABS: Alanine Aminotransferase 20 IU/L (<50); Albumin 4.2 g/dL (3.5-5.0); Albumin Globulin Ratio 1.4 (1.0-2.8); Alkaline Phosphatase 104 U/L (38-126); Aspartate Aminotransferase 20 IU/L (17-59); Blood Urea Nitrogen 17 mg/dL (9-20); Calcium 9.8 mg/dL (8.4-10.2); Carbon Dioxide 29 mmol/L (22-32); Chloride 102 mmol/L (98-107); Cholesterol 143 mg/dL (140-199); Estimated Glomerular Filt Rate > 60.0 mL/min (>60); Globulin 2.9 g/dL (1.7-4.1); Glucose 157 mg/dL (80-110); HDL Cholesterol 33 mg/dL (40-60); HEMOLYSIS < 15 (0-50); LDL Cholesterol Calculated 70 mg/dL (<100); Potassium 4.1 mmol/L (3.4-5.1); Sodium 141 mmol/L (137-145); Total Protein 7.1 g/dL (6.3-8.2); Triglycerides 202 mg/dL (35-150)
== END ==
PROVIDERS: PCP Family Medicine; Referring Provider Internal Medicine Cardiovascular Disease; Visit Provider Internal Medicine Cardiovascular Disease
DX: E78.5 Hyperlipidemia, unspecified (principal)
CPT/HCPCS: 36415; 80053; 80061

== ENCOUNTER → 2019-09-13 09:28 | Outpatient (CLI) | payer MEDICARE, SELFPAY ==
[2017-11-29 11:41] VITALS: BMI 31.1
[2019-09-13 10:24] LABS: Add Manual Diff / Slide Review NO; Basophils Absolute Auto 200 /uL (0-100); Basophils Percent Auto 1.8 % (0-2); Eosinophils Absolute Auto 100 /uL (0-450); Eosinophils Percent Auto 1.3 % (2-4); Hematocrit 38.1 % (41-53); Hemoglobin 13.3 g/dL (13.5-17.5); Lymphocytes Absolute Auto 2500 /uL (1100-4500); Lymphocytes Percent Auto 28.3 % (25-40); Mean Corpuscular HGB Conc 34.9 % (30-36); Mean Corpuscular Hemoglobin 32.8 PG (26-34); Mean Corpuscular Volume 93.9 fL (80-100); Monocytes Absolute Auto 800 /uL (0-900); Monocytes Percent Auto 8.5 % (3-14); Neutrophils Absolute Auto 5300 /uL (1500-7000); Neutrophils Percent Auto 60.1 % (50-75); Platelet Count 238 X10^3/uL (150-400); Red Blood Cell Count 4.06 X10^6/uL (4.5-5.9); Red Cell Distribution Width 13.6 % (11.6-14.8); White Blood Cell Count 8.9 X10^3/uL (4.5-11.0)
[2019-09-13 10:33] LABS: Hemoglobin A1C% w Est Avg Glu 6.4 % (4.0-6.0)
[2019-09-13 10:37] LABS: Alanine Aminotransferase 20 IU/L (<50); Albumin Globulin Ratio 1.6 (1.0-2.8); Alkaline Phosphatase 98 U/L (38-126); Aspartate Aminotransferase 21 IU/L (17-59); BUN Creatinine Ratio 15.7 (6-22); Bilirubin Total 0.8 mg/dL (0.2-1.3); Blood Urea Nitrogen 14 mg/dL (9-20); Calcium 9.3 mg/dL (8.4-10.2); Carbon Dioxide 29 mmol/L (22-32); Chloride 104 mmol/L (98-107); Cholesterol 133 mg/dL (140-199); Estimated Glomerular Filt Rate > 60.0 mL/min (>60); Globulin 2.5 g/dL (1.7-4.1); Glucose 138 mg/dL (80-110); HDL Cholesterol 35 mg/dL (40-60); HEMOLYSIS < 15 (0-50); LDL Cholesterol Calculated 56 mg/dL (<100); Potassium 3.7 mmol/L (3.4-5.1); Sodium 140 mmol/L (137-145); Total Protein 6.5 g/dL (6.3-8.2); Triglycerides 209 mg/dL (35-150)
== END ==
PROVIDERS: PCP Family Medicine; Referring Provider Family Medicine; Visit Provider Family Medicine
DX: E78.2 Mixed hyperlipidemia (principal); I10 Essential (primary) hypertension; R73.02 Impaired glucose tolerance (oral); Z76.89 Persons encountering health services in other specified circumstances
CPT/HCPCS: 36415; 80053; 80061; 83036; 85025

== ENCOUNTER 2019-10-31 09:45 | Outpatient (RCR) | payer MEDICARE, SELFPAY ==
[2017-11-29 11:41] VITALS: BMI 31.1
--- NOTE | 2019-09-02 16:57 | PT.OIE ---
Current Diagnoses Incomplete rotator cuff tear or rupture of unspecified shoulder, not specified as traumatic (09/02/19) Past Medical History (Last Updated 08/27/19 @ 17:31 by Ryan Rice DO) AICD (automatic cardioverter/defibrillator) present (Chronic ~07/05/13) Atopic dermatitis (Acute) BPH with urinary obstruction (Acute) Colon cancer (Acute) Colon polyps (Resolved) Depression (Acute) Diabetes mellitus (Chronic) Diarrhea (Acute) Edema (Acute) Erectile dysfunction (Acute) Hearing loss (Acute) History of echocardiogram (Acute ~06/2016) History of fracture as a child (Acute) History of left heart catheterization (Acute ~11/2015) History of syncope (Acute) Hyperlipidemia (Chronic) Hypertension (Chronic) Mitral regurgitation (Acute) 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 (Acute) Obese (Acute) Pacemaker (Chronic) Partial tear of right rotator cuff (Acute) Peripheral neuropathy (Chronic) Retention of urine (Acute) Sensory ataxia (Acute) Tear meniscus knee (Acute) V-tach (Acute) Vertigo (Chronic) Past Surgical History (Last Reviewed 08/15/18 @ 16:30 by Sinai Chavis MD) History of colonoscopy with polypectomy (Acute) History of prostate surgery (Acute) History of tonsillectomy (Acute) History of umbilical hernia repair (Acute) Implantable cardioverter-defibrillator (ICD) in situ (Resolved) Presence of cardiac pacemaker (Resolved) S/P partial colectomy (Acute) Visit Care Team Role Provider Type Ryan Rice DO Attending Provider Physician Primary Care Provider Referring Provider Specialty: [facility] Address: [address] [place] [address], [facility] Email: [email or web address] Physical Therapy Initial Evaluation PT-OP-A Visit Information Start: 09/02/19 16:18 Freq: Status: Active Protocol: Document 09/02/19 16:19 (Rec: 09/02/19 16:56 [email or web address]) Out-Patient Physical Therapy Visit Information Visit Information Visit Type Initial Evaluation Visit Start Time 15:17 Visit Stop Time 16:00 Total Visit Minutes 43 Visit Number 03/03 Number of TOW DRIVER Visits 0 Evaluation Information Evaluation Date 09/02/19 Precautions Precautions CHF pacemaker hx of falls bruise easily PT-OP-B Current Condition Start: 09/02/19 16:18 Freq: Status: Active Protocol: Document 09/02/19 16:19 (Rec: 09/02/19 16:56 [email or web address]) Current Condition History of Current Condition Onset Date late June Current Complaints R shoulder pain, unable to reach overhead, difficulty in zurdo/doff clothes History of Current Condition Pt is a 83yo male here for his new onset of ongoing R shoulder pain with range of motion. He stated he hurt his shoulder one day with a loud pop sound when he was extended his R shoulder while pulling his bedsheet to tidy his bed. His pain located at greater turberosity region who feels there is something clicking or snapping and R biceps area. He is currently unable to reach behind his back and lift his arm overhead , but able to reach further with AAROM from LUE. He denied tingling/ numbness and able to maintain good sleep by sleeping on his L side. Pt saw Dr. Rice and suspect possible a rotator cuff injury and bicep long head tendonopathy Prior Treatments and Tests N/A Treatment Goals Patient/Caregiver Goals 1. To be pain free for R shoulder ROM Current Functional Impairments (Reported) Functional Limitations- ADL's Needed L UE to assist for zurdo /doff clothes He primarily uses his L arm for most functional activities . PT-OP-C Subjective Start: 09/02/19 16:18 Freq: Status: Active Protocol: Document 09/02/19 16:19 (Rec: 09/02/19 16:56 [email or web address]) Patient Questionnaires Quick Dash- Upper Extremity Quick Dash UE Score 59.1 Quick Dash UE Impairment 40 to 59% Impaired (Score 40- 59) OP-PT Pain Assessment Location r shoulder Pain Location Details R bicep and shoulder (greater tuberosity region) Intensity 8 Scale Used Numeric (0 - 10) Description Acute,Sharp Frequency Constant Pain Aggravating Factors Position,Activity,Exercise, Lifting Pain Alleviating Factors Inactivity PT-OP-F Manual Assessment Start: 09/02/19 16:18 Freq: Status: Active Protocol: Document 09/02/19 16:19 (Rec: 09/02/19 16:56 [email or web address]) Manual Assessments Soft Tissue Assessment Soft Tissue Mobility Assessment pt screamed out for pain with pressure at proximal bicep belly and long head tendon tenderness noted at R infraspinatus and R pecs. PT-OP-H Neuro Start: 09/02/19 16:18 Freq: Status: Active Protocol: Document 09/02/19 16:19 (Rec: 09/02/19 16:56 [email or web address]) Deep Tendon Reflex & Clonus Assessment Deep Tendon Reflex Bilateral Tricep Deep Tendon Reflex 1+ Diminished Bilateral Bicep Deep Tendon Reflex 2+ Normal Bilateral Brachioradialis Deep Tendon Reflex 2+ Normal PT-OP-J Posture/Palpation/Skin Start: 09/02/19 16:18 Freq: Status: Active Protocol: Document 09/02/19 16:19 (Rec: 09/02/19 16:56 [email or web address]) Posture Evaluation Position Sitting Head/C-Spine Posture Forward Head T-Spine Posture Increased Kyphosis Scapula Posture (R) Protracted,(R) Elevated,(R ) Tipped PT-OP-K Range of Motion Start: 09/02/19 16:18 Freq: Status: Active Protocol: Document 09/02/19 16:19 (Rec: 09/02/19 16:56 [email or web address]) Shoulder Goniometric Range of Motion Shoulder Left Active Shoulder ROM WFL Yes Testing Position Standing Flexion 160 Abduction 158 External Rotation at 90 degrees 82 Abduction Internal Rotation 75 Right Passive Shoulder ROM WFL No Testing Position Supine Flexion 82 Abduction 84 External Rotation at 90 degrees 35 Abduction Internal Rotation 42 Right Active Shoulder ROM WFL No Testing Position Supine Flexion 72 Abduction 70 Shoulder ROM Limitations Shoulder ROM Limitations Soft Tissue Tightness,Pain Comments significant pain noted for AROM at greater tuberosity region but less pain with PROM Elbow/Forearm Range of Motion Elbow/Forearm Right Active Elbow/Forearm ROM WFL Yes Left Active Elbow/Forearm ROM WFL Yes PT-OP-L Special Tests Start: 09/02/19 16:18 Freq: Status: Active Protocol: Document 09/02/19 16:19 (Rec: 09/02/19 16:56 [email or web address]) Special Tests Shoulder Special Tests Speed's Biceps Comments unable to test d/t significant pain with both AROM/ PROM before he reached testing position Elevation Impingement Comments unable to test d/t significant pain with both AROM/ PROM before he reached testing position Drop Arm Rotator Cuff Comments unable to test d/t significant pain with both AROM/ PROM before he reached testing position PT-OP-M Strength Start: 09/02/19 16:18 Freq: Status: Active Protocol: Document 09/02/19 16:19 (Rec: 09/02/19 16:56 [email or web address]) Shoulder Strength Shoulder Manual Muscle Testing Left Flexion 4 Good Extension 4 Good Abduction (C5) 4 Good Adduction 4 Good External Rotation 4 Good Internal Rotation 4 Good Right Flexion 2- Poor- Abduction (C5) 2- Poor- Adduction 3+ Fair+ External Rotation 2+ Poor+ Internal Rotation 2+ Poor+ Elbow/Forearm Strength Elbow and Forearm Manual Muscle Testing Right Flexion (C6) 4 Good Extension (C7) 4 Good Comments inc in shoulder pain noted with resisted elbow flexion. Left Flexion (C6) 4 Good Extension (C7) 4 Good PT-OP-Q Treatments Start: 09/02/19 16:18 Freq: Status: Active Protocol: Document 09/02/19 15:16 HH (Rec: 09/02/19 16:57 [email or web address]) Manual Therapy Treatment Soft Tissue Mobilization R biceps Body Location bicep belly, long head tendon Mobilization Type Sustained Pressure,Trigger Point Release Intensity/Depth Moderate Body Position Supine Comments pt reports of significant and medial bicep belly and long head tendon, but significant relief after with improved PROM for flexion and abduction . PT-OP-T Assessment and Plan Start: 09/02/19 16:18 Freq: Status: Active Protocol: Document 09/02/19 16:19 (Rec: 09/02/19 16:56 [email or web address]) Physical Therapy Assessment Rehab Potential Rehabilitation Potential Good Evaluation Complexity Number of Personal Factors/Comorbidities 3 or More Number of Body Systems Impaired 3 Clinical Presentation at Evaluation Stable Impairments Impairments Activity Tolerance,Functional Activities,Functional Mobility ,Pain,Posture,ROM,Soft Tissue Mobility,Strength Other Concerns Fall Risk high Barriers to Rehabilitation pt is w/c bound with high fall risk Goals pain Impairment Pt has R shoulder pain ~8/10 Short Term Goal (STG) Pt will have no more than 6/10 for his R shoulder during the day Corporation Secretary Goal (LTG) Pt will have no more than 4/10 for his R shoulder during the day so 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 LTG Duration 8 weeks ROM Impairment pt shows significant loss of ROM Short Term Goal (STG) Pt will gain 15 degrees or more to improve his R shoulder ROM STG Duration 4 weeks [facility] Goal (LTG) Pt will gain >25 degrees or more to improve his R shoulder ROM so he can reach behind his back to zurdo/ doff his clothes. LTG Duration 8 weeks Quickdash Impairment pt scores 59.01 on Quick Dash Short Term Goal (STG) Pt will score < 40 on quick dash STG Duration 4 weeks Corporation Secretary Goal (LTG) Pt will score <30 on quick dash to improve his R shoulder functional mobility and strength LTG Duration 8 weeks Assessment Summary Assessment This is a high complexity evaluation for this 83yo male here for his new onset of ongoing R shoulder pain with range of motion started a month ago after he extended his shoulders. Upon assessment , Pt's pain was severe 09/22 which made accurate assessment difficult. He shows significant ROM and strength loss with severe pain at R biceps belly and greater tuberosity region, but his elbow ROM and bicep strength is somewhat WFL. This indicates a possible bicep tendonopathy and subacromial impingement since there's significant anterior translation at R GHJ noted with shoulder movements. Pt's pain and ROM were significantly improved after STM on R biceps. However, cont assessment will be needed to rule out RTC tear. This pt will benefit from skilled therapy to improve his pain threshold, r shoulder ROM and strength, scapular stability and R GHJ congruency during overhead movements so pt can complete functional activities such as zurdo/doff clothes with minimal discomfort. Physical Therapy Plan Frequency and Duration Frequency of Treatment 2x/Week Duration of Treatment 8 weeks Plan of Care Start Date 09/02/19 Plan of Care End Date 11/01/19 Therapeutic Interventions Therapeutic Interventions Home Exercise Program,Joint Mobilizations,Manual Therapy, Neuromuscular Re-education, Patient/Caregiver Education, Self-Care/Home Management,Soft Tissue Mobilization,Taping, Therapeutic Activities, Therapeutic Exercises Modalities Cold Pack/Ice Massage,Electric Stimulation,Hot Packs, Infrared Therapy,Iontophoresis Next Visit Focus/Plan Next Note Type Treatment Note Next Visit Plan check post STM tolerance start with bicep tendon, pecs and RTc manual therapy post glide at [facility] AAROM/ PROM with PVC/ stick, isometric against wall for HEP
--- NOTE | 2019-09-02 16:57 | PT.OPPOC ---
Physical, Occupational & Speech Therapy At [facility] Current Diagnoses Incomplete rotator cuff tear or rupture of unspecified shoulder, not specified as traumatic (09/02/19) Visit Care Team Role Provider Type Ryan Rice DO Attending Provider Physician Primary Care Provider Referring Provider Specialty: [facility] Address: [address] [place] [address], [facility] Email: [email or web address] Plan Of Care PT-OP-T Assessment and Plan Start: 09/02/19 16:18 Freq: Status: Active Protocol: Document 09/02/19 16:19 HH (Rec: 09/02/19 16:56 [email or web address]) Physical Therapy Assessment Rehab Potential Rehabilitation Potential Good Evaluation Complexity Number of Personal Factors/Comorbidities 3 or More Number of Body Systems Impaired 3 Clinical Presentation at Evaluation Stable Impairments Impairments Activity Tolerance,Functional Activities,Functional Mobility ,Pain,Posture,ROM,Soft Tissue Mobility,Strength Other Concerns Fall Risk high Barriers to Rehabilitation pt is w/c bound with high fall risk Goals pain Impairment Pt has R shoulder pain ~8/10 Short Term Goal (STG) Pt will have no more than 6/10 for his R shoulder during the day Senior Care Goal (LTG) Pt will have no more than 4/10 for his R shoulder during the day so 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 LTG Duration 8 weeks Quickdash Impairment pt scores 59.01 on Quick Dash Short Term Goal (STG) Pt will score < 40 on quick dash STG Duration 4 weeks Home School Liaison Officer Goal (LTG) Pt will score <30 on quick dash to improve his R shoulder functional mobility and strength LTG Duration 8 weeks Assessment Summary Assessment This is a high complexity evaluation for this 83yo male here for his new onset of ongoing R shoulder pain with range of motion started a month ago after he extended his shoulders. Upon assessment , Pt's pain was severe 09/22 which made accurate assessment difficult. He shows significant ROM and strength loss with severe pain at R biceps belly and greater tuberosity region, but his elbow ROM and bicep strength is somewhat WFL. This indicates a possible bicep tendonopathy and subacromial impingement since there's significant anterior translation at R GHJ noted with shoulder movements. Pt's pain and ROM were significantly improved after STM on R biceps. However, cont assessment will be needed to rule out RTC tear. This pt will benefit from skilled therapy to improve his pain threshold, r shoulder ROM and strength, scapular stability and R GHJ congruency during overhead movements so pt can complete functional activities such as zurdo/doff clothes with minimal discomfort. Physical Therapy Plan Frequency and Duration Frequency of Treatment 2x/Week Duration of Treatment 8 weeks Plan of Care Start Date 09/02/19 Plan of Care End Date 11/01/19 Therapeutic Interventions Therapeutic Interventions Home Exercise Program,Joint Mobilizations,Manual Therapy, Neuromuscular Re-education, Patient/Caregiver Education, Self-Care/Home Management,Soft Tissue Mobilization,Taping, Therapeutic Activities, Therapeutic Exercises Modalities Cold Pack/Ice Massage,Electric Stimulation,Hot Packs, Infrared Therapy,Iontophoresis Next Visit Focus/Plan Next Note Type Treatment Note Next Visit Plan check post STM tolerance start with bicep tendon, pecs and RTc manual therapy post glide at [facility] AAROM/ PROM with PVC/ stick, isometric against wall for HEP Plan of Care Dates Plan of Care Start Date 09/02/19 Plan of Care End Date 11/01/19 Electronically Signed by: Jordan Mckeon, PT 09/02/19 [id number] Please Sign and Return: I have reviewed this Plan of Care and certify that the skilled therapy services above are required to meet the patient?s needs. Physician Signature Date Printed Name and Credentials Clinical Instructor Signature Printed Name and Credentials
--- NOTE | 2019-09-09 14:06 | PT.OTN ---
Current Diagnoses Incomplete rotator cuff tear or rupture of unspecified shoulder, not specified as traumatic (09/09/19) Physical Therapy Treatment Note PT-OP-A Visit Information Start: 09/02/19 16:18 Freq: Status: Active Protocol: Document 09/09/19 13:02 (Rec: 09/09/19 14:05 [id number]) Out-Patient Physical Therapy Visit Information Visit Information Visit Type Treatment Note Visit Start Time 13:02 Visit Stop Time 13:52 Total Visit Minutes 50 Visit Number 04/03 Number of M1A1 [employer] Visits 0 PT-OP-B Current Condition Start: 09/02/19 16:18 Freq: Status: Active Protocol: Document 09/02/19 16:19 HH (Rec: 09/02/19 16:56 HH [email or web address]) Current Condition History of Current Condition Onset Date late June Current Complaints R shoulder pain, unable to reach overhead, difficulty in zurdo/doff clothes History of Current Condition Pt is a 83yo male here for his new onset of ongoing R shoulder pain with range of motion. He stated he hurt his shoulder one day with a loud pop sound when he was extended his R shoulder while pulling his bedsheet to tidy his bed. His pain located at greater turberosity region who feels there is something clicking or snapping and R biceps area. He is currently unable to reach behind his back and lift his arm overhead , but able to reach further with AAROM from LUE. He denied tingling/ numbness and able to maintain good sleep by sleeping on his L side. Pt saw Dr. Rice and suspect possible a rotator cuff injury and bicep long head tendonopathy Prior Treatments and Tests N/A Treatment Goals Patient/Caregiver Goals 1. To be pain free for R shoulder ROM Current Functional Impairments (Reported) Functional Limitations- ADL's Needed L UE to assist for zurdo /doff clothes He primarily uses his L arm for most functional activities . PT-OP-C Subjective Start: 09/02/19 16:18 Freq: Status: Active Protocol: Document 09/09/19 13:02 (Rec: 09/09/19 14:05 [id number]) OP-PT Subjective Patient Comments Patient Comments I feel a lot better after last 10 mins treatment from the assessment. I can move more lately Patient Reported Progress Improving PT-OP-F Manual Assessment Start: 09/02/19 16:18 Freq: Status: Active Protocol: Document 09/02/19 16:19 HH (Rec: 09/02/19 16:56 [email or web address]) Manual Assessments Soft Tissue Assessment Soft Tissue Mobility Assessment pt screamed out for pain with pressure at proximal bicep belly and long head tendon tenderness noted at R infraspinatus and R pecs. PT-OP-H Neuro Start: 09/02/19 16:18 Freq: Status: Active Protocol: Document 09/02/19 16:19 HH (Rec: 09/02/19 16:56 [email or web address]) Deep Tendon Reflex & Clonus Assessment Deep Tendon Reflex Bilateral Tricep Deep Tendon Reflex 1+ Diminished Bilateral Bicep Deep Tendon Reflex 2+ Normal Bilateral Brachioradialis Deep Tendon Reflex 2+ Normal PT-OP-J Posture/Palpation/Skin Start: 09/02/19 16:18 Freq: Status: Active Protocol: Document 09/02/19 16:19 HH (Rec: 09/02/19 16:56 [email or web address]) Posture Evaluation Position Sitting Head/C-Spine Posture Forward Head T-Spine Posture Increased Kyphosis Scapula Posture (R) Protracted,(R) Elevated,(R ) Tipped PT-OP-K Range of Motion Start: 09/02/19 16:18 Freq: Status: Active Protocol: Document 09/02/19 16:19 HH (Rec: 09/02/19 16:56 [email or web address]) Shoulder Goniometric Range of Motion Shoulder Left Active Shoulder ROM WFL Yes Testing Position Standing Flexion 160 Abduction 158 External Rotation at 90 degrees 82 Abduction Internal Rotation 75 Right Passive Shoulder ROM WFL No Testing Position Supine Flexion 82 Abduction 84 External Rotation at 90 degrees 35 Abduction Internal Rotation 42 Right Active Shoulder ROM WFL No Testing Position Supine Flexion 72 Abduction 70 Shoulder ROM Limitations Shoulder ROM Limitations Soft Tissue Tightness,Pain Comments significant pain noted for AROM at greater tuberosity region but less pain with PROM Elbow/Forearm Range of Motion Elbow/Forearm Right Active Elbow/Forearm ROM WFL Yes Left Active Elbow/Forearm ROM WFL Yes PT-OP-L Special Tests Start: 09/02/19 16:18 Freq: Status: Active Protocol: Document 09/02/19 16:19 HH (Rec: 09/02/19 16:56 [email or web address]) Special Tests Shoulder Special Tests Speed's Biceps Comments unable to test d/t significant pain with both AROM/ PROM before he reached testing position Elevation Impingement Comments unable to test d/t significant pain with both AROM/ PROM before he reached testing position Drop Arm Rotator Cuff Comments unable to test d/t significant pain with both AROM/ PROM before he reached testing position PT-OP-M Strength Start: 09/02/19 16:18 Freq: Status: Active Protocol: Document 09/02/19 16:19 (Rec: 09/02/19 16:56 [email or web address]) Shoulder Strength Shoulder Manual Muscle Testing Left Flexion 4 Good Extension 4 Good Abduction (C5) 4 Good Adduction 4 Good External Rotation 4 Good Internal Rotation 4 Good Right Flexion 2- Poor- Abduction (C5) 2- Poor- Adduction 3+ Fair+ External Rotation 2+ Poor+ Internal Rotation 2+ Poor+ Elbow/Forearm Strength Elbow and Forearm Manual Muscle Testing Right Flexion (C6) 4 Good Extension (C7) 4 Good Comments inc in shoulder pain noted with resisted elbow flexion. Left Flexion (C6) 4 Good Extension (C7) 4 Good PT-OP-Q Treatments Start: 09/02/19 16:18 Freq: Status: Active Protocol: Document 09/09/19 13:02 (Rec: 09/09/19 14:05 [id number]) Therapeutic Exercises Supine Exercises scaption and flexion Supine Exercise Name AAROM with cane Side right Reps/Minutes 5 x2 Comments pt is unable to complete without using RUE. Need max cues for relaxation scap retraction Supine Exercise Name cues on pinching shoulder down to table Side bilateral Reps/Minutes 2-3 secs x 8 reps x 2 sets Comments for HEP Manual Therapy Treatment Soft Tissue Mobilization R pecs Body Location corocoid process region Mobilization Type Sustained Pressure,Trigger Point Release Intensity/Depth Moderate Body Position Supine Comments significant pain noted RTC Body Location infraspinatus, subscapularis Mobilization Type Sustained Pressure,Trigger Point Release Intensity/Depth Moderate Body Position Sidelying Comments significant pain noted at subscapularis R biceps Body Location bicep belly, long head tendon Mobilization Type Sustained Pressure,Trigger Point Release Intensity/Depth Moderate Body Position Supine Comments pt reports of significant and medial bicep belly and long head tendon, but significant relief after with improved PROM for flexion and abduction . Joint Mobilizations GHJ Joint R GHJ Direction post glide Grade II Body Position Supine Reps/Duration 8 mins Comments shoulder at 90 degrees followed by passive ER and IR with post glide. minimal pain noted. 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 LTG Duration 8 weeks ROM Impairment pt shows significant loss of ROM Short Term Goal (STG) Pt will gain 15 degrees or more to improve his R shoulder ROM STG Duration 4 weeks Bag Presser Goal (LTG) Pt will gain >25 degrees or more to improve his R shoulder ROM so he can reach behind his back to zurdo/ doff his clothes. LTG Duration 8 weeks Quickdash Impairment pt scores 59.01 on Quick Dash Short Term Goal (STG) Pt will score < 40 on quick dash STG Duration 4 weeks Custodial Goal (LTG) Pt will score <30 on quick dash to improve his R shoulder functional mobility and strength LTG Duration 8 weeks Assessment Summary Assessment Pt's pain significantly reduced from first visit. This session cont focused on soft tissue relaxation at subscap, pec minor, infraspintaus and bicep tendon. Pt does have difficulty performing AAROM without engaging R UE. Pt did well with scap squeeze. Will focus on AAROM next visit. Physical Therapy Plan Next Visit Focus/Plan Next Note Type Treatment Note Next Visit Plan review scap squeeze check post STM tolerance start with bicep tendon, pecs and RTc manual therapy post glide at [facility] AAROM/ PROM with PVC/ stick, isometric against wall for HEP
--- NOTE | 2019-09-11 17:06 | PT.OTN ---
Current Diagnoses Incomplete rotator cuff tear or rupture of unspecified shoulder, not specified as traumatic (09/11/19) Physical Therapy Treatment Note PT-OP-A Visit Information Start: 09/02/19 16:18 Freq: Status: Active Protocol: Document 09/11/19 16:53 AW (Rec: 09/11/19 17:06 AW [email or web address]) Out-Patient Physical Therapy Visit Information Visit Information Visit Type Treatment Note Visit Start Time 15:16 Visit Stop Time 16:00 Total Visit Minutes 44 Visit Number 05/01 Evaluation Information Evaluation Date 09/02/19 Precautions Precautions CHF pacemaker hx of falls bruise easily PT-OP-B Current Condition Start: 09/02/19 16:18 Freq: Status: Active Protocol: Document 09/02/19 16:19 HH (Rec: 09/02/19 16:56 HH [email or web address]) Current Condition History of Current Condition Onset Date late June Current Complaints R shoulder pain, unable to reach overhead, difficulty in zurdo/doff clothes History of Current Condition Pt is a 83yo male here for his new onset of ongoing R shoulder pain with range of motion. He stated he hurt his shoulder one day with a loud pop sound when he was extended his R shoulder while pulling his bedsheet to tidy his bed. His pain located at greater turberosity region who feels there is something clicking or snapping and R biceps area. He is currently unable to reach behind his back and lift his arm overhead , but able to reach further with AAROM from LUE. He denied tingling/ numbness and able to maintain good sleep by sleeping on his L side. Pt saw Dr. Rice and suspect possible a rotator cuff injury and bicep long head tendonopathy Prior Treatments and Tests N/A Treatment Goals Patient/Caregiver Goals 1. To be pain free for R shoulder ROM Current Functional Impairments (Reported) Functional Limitations- ADL's Needed L UE to assist for zurdo /doff clothes He primarily uses his L arm for most functional activities . PT-OP-C Subjective Start: 09/02/19 16:18 Freq: Status: Active Protocol: Document 09/11/19 16:53 AW (Rec: 09/11/19 17:06 AW [email or web address]) OP-PT Subjective Patient Comments Patient Comments I've been doing my shoulder blade squeezes lying down. PT-OP-F Manual Assessment Start: 09/02/19 16:18 Freq: Status: Active Protocol: Document 09/02/19 16:19 (Rec: 09/02/19 16:56 [email or web address]) Manual Assessments Soft Tissue Assessment Soft Tissue Mobility Assessment pt screamed out for pain with pressure at proximal bicep belly and long head tendon tenderness noted at R infraspinatus and R pecs. PT-OP-H Neuro Start: 09/02/19 16:18 Freq: Status: Active Protocol: Document 09/02/19 16:19 HH (Rec: 09/02/19 16:56 [email or web address]) Deep Tendon Reflex & Clonus Assessment Deep Tendon Reflex Bilateral Tricep Deep Tendon Reflex 1+ Diminished Bilateral Bicep Deep Tendon Reflex 2+ Normal Bilateral Brachioradialis Deep Tendon Reflex 2+ Normal PT-OP-J Posture/Palpation/Skin Start: 09/02/19 16:18 Freq: Status: Active Protocol: Document 09/02/19 16:19 (Rec: 09/02/19 16:56 [email or web address]) Posture Evaluation Position Sitting Head/C-Spine Posture Forward Head T-Spine Posture Increased Kyphosis Scapula Posture (R) Protracted,(R) Elevated,(R ) Tipped PT-OP-K Range of Motion Start: 09/02/19 16:18 Freq: Status: Active Protocol: Document 09/02/19 16:19 (Rec: 09/02/19 16:56 [email or web address]) Shoulder Goniometric Range of Motion Shoulder Left Active Shoulder ROM WFL Yes Testing Position Standing Flexion 160 Abduction 158 External Rotation at 90 degrees 82 Abduction Internal Rotation 75 Right Passive Shoulder ROM WFL No Testing Position Supine Flexion 82 Abduction 84 External Rotation at 90 degrees 35 Abduction Internal Rotation 42 Right Active Shoulder ROM WFL No Testing Position Supine Flexion 72 Abduction 70 Shoulder ROM Limitations Shoulder ROM Limitations Soft Tissue Tightness,Pain Comments significant pain noted for AROM at greater tuberosity region but less pain with PROM Elbow/Forearm Range of Motion Elbow/Forearm Right Active Elbow/Forearm ROM WFL Yes Left Active Elbow/Forearm ROM WFL Yes PT-OP-L Special Tests Start: 09/02/19 16:18 Freq: Status: Active Protocol: Document 09/02/19 16:19 HH (Rec: 09/02/19 16:56 [email or web address]) Special Tests Shoulder Special Tests Speed's Biceps Comments unable to test d/t significant pain with both AROM/ PROM before he reached testing position Elevation Impingement Comments unable to test d/t significant pain with both AROM/ PROM before he reached testing position Drop Arm Rotator Cuff Comments unable to test d/t significant pain with both AROM/ PROM before he reached testing position PT-OP-M Strength Start: 09/02/19 16:18 Freq: Status: Active Protocol: Document 09/02/19 16:19 HH (Rec: 09/02/19 16:56 HH [email or web address]) Shoulder Strength Shoulder Manual Muscle Testing Left Flexion 4 Good Extension 4 Good Abduction (C5) 4 Good Adduction 4 Good External Rotation 4 Good Internal Rotation 4 Good Right Flexion 2- Poor- Abduction (C5) 2- Poor- Adduction 3+ Fair+ External Rotation 2+ Poor+ Internal Rotation 2+ Poor+ Elbow/Forearm Strength Elbow and Forearm Manual Muscle Testing Right Flexion (C6) 4 Good Extension (C7) 4 Good Comments inc in shoulder pain noted with resisted elbow flexion. Left Flexion (C6) 4 Good Extension (C7) 4 Good PT-OP-Q Treatments Start: 09/02/19 16:18 Freq: Status: Active Protocol: Document 09/11/19 16:53 AW (Rec: 09/11/19 17:06 AW [email or web address]) Therapeutic Exercises Supine Exercises scaption and flexion Supine Exercise Name AAROM with cane Side right Reps/Minutes 5 x2 Comments pt needs max cues for RUE to relax. scap retraction Supine Exercise Name cues on pinching shoulder down to table Side bilateral Reps/Minutes 2-3 secs x 8 reps x 2 sets Comments for HEP Sidelying Exercises scapular retraction/depression Sidelying Exercise Name scapular retraction/depression Side right Resistance manual Reps/Minutes 5 min Comments pt cued for retraction/ depression againt PT manual resistance Sitting Exercises seated lat squeeze Sitting Exercise Name seated lat squeeze Side bilateral Equipment Used pt's walking stick Reps/Minutes 8 reps Comments pt cued to grasp walking stick with elbows 90 deg & push it into the floor scapular retraction Sitting Exercise Name scapular retraction Side bilateral Reps/Minutes 15 reps Comments max cues for engagement and squeeze Manual Therapy Treatment Soft Tissue Mobilization R pecs Body Location corocoid process region Mobilization Type Sustained Pressure,Trigger Point Release Intensity/Depth Moderate Body Position Supine Comments significant pain noted RTC Body Location infraspinatus, subscapularis Mobilization Type Sustained Pressure,Trigger Point Release Intensity/Depth Moderate Body Position Sidelying Comments significant pain noted at subscapularis R biceps Body Location bicep belly, long head tendon Mobilization Type Sustained Pressure,Trigger Point Release Intensity/Depth Moderate Body Position Supine Comments pt reports less pain symptoms along biceps this visit Joint Mobilizations GHJ Joint R GHJ Direction post glide Grade II Body Position Supine Reps/Duration 8 mins Comments pt unable to tolerate glides at 90 deg ABD; reduced to 75 deg with improved response followed by passive ER and IR with post glide. minimal pain noted. PT-OP-T Assessment and Plan Start: 09/02/19 16:18 Freq: Status: Active Protocol: Document 09/11/19 16:53 AW (Rec: 09/11/19 17:06 AW [email or web address]) Physical Therapy Assessment Rehab Potential Rehabilitation Potential Good Evaluation Complexity Number of Personal Factors/Comorbidities 3 or More Number of Body Systems Impaired 3 Clinical Presentation at Evaluation Stable Impairments Impairments Activity Tolerance,Functional Activities,Functional Mobility ,Pain,Posture,ROM,Soft Tissue Mobility,Strength Other Concerns Fall Risk high Barriers to Rehabilitation pt is w/c bound with high fall risk Goals pain Impairment Pt has R shoulder pain ~8/10 Short Term Goal (STG) Pt will have no more than 6/10 for his R shoulder during the day Senior Care Goal (LTG) Pt will have no more than 4/10 for his R shoulder during the day so 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 LTG Duration 8 weeks ROM Impairment pt shows significant loss of ROM Short Term Goal (STG) Pt will gain 15 degrees or more to improve his R shoulder ROM STG Duration 4 weeks Senior Care Goal (LTG) Pt will gain >25 degrees or more to improve his R shoulder ROM so he can reach behind his back to zurdo/ doff his clothes. LTG Duration 8 weeks Quickdash Impairment pt scores 59.01 on Quick Dash Short Term Goal (STG) Pt will score < 40 on quick dash STG Duration 4 weeks Senior Care Goal (LTG) Pt will score <30 on quick dash to improve his R shoulder functional mobility and strength LTG Duration 8 weeks Assessment Summary Assessment Tx focused on STM pecs, biceps , infraspinatus, upper trap. Pt continues to require max cues for relaxation of right arm with AAROM. Added seated lat squeeze exercise for HEP. Physical Therapy Plan Frequency and Duration Frequency of Treatment 2x/Week Duration of Treatment 8 weeks Plan of Care Start Date 09/02/19 Plan of Care End Date 11/01/19 Therapeutic Interventions Therapeutic Interventions Home Exercise Program,Joint Mobilizations,Manual Therapy, Neuromuscular Re-education, Patient/Caregiver Education, Self-Care/Home Management,Soft Tissue Mobilization,Taping, Therapeutic Activities, Therapeutic Exercises Modalities Cold Pack/Ice Massage,Electric Stimulation,Hot Packs, Infrared Therapy,Iontophoresis Next Visit Focus/Plan Next Note Type Treatment Note Next Visit Plan review scap squeeze check post STM tolerance start with bicep tendon, pecs and RTc manual therapy post glide at [facility] AAROM/ PROM with PVC/ stick, isometric against wall for HEP
--- NOTE | 2019-09-16 12:02 | PT.OTN ---
Current Diagnoses Incomplete rotator cuff tear or rupture of unspecified shoulder, not specified as traumatic (09/16/19) Physical Therapy Treatment Note PT-OP-A Visit Information Start: 09/02/19 16:18 Freq: Status: Active Protocol: Document 09/16/19 11:15 DCW (Rec: 09/16/19 12:02 DCW [id number]) Out-Patient Physical Therapy Visit Information Visit Information Visit Type Treatment Note Visit Start Time 11:15 Visit Stop Time 12:00 Total Visit Minutes 45 Visit Number 06/01 Number of AUTO PARTS HANDLER Visits 0 Evaluation Information Evaluation Date 09/02/19 Precautions Precautions CHF pacemaker hx of falls bruise easily PT-OP-B Current Condition Start: 09/02/19 16:18 Freq: Status: Active Protocol: Document 09/02/19 16:19 HH (Rec: 09/02/19 16:56 HH [email or web address]) Current Condition History of Current Condition Onset Date late June Current Complaints R shoulder pain, unable to reach overhead, difficulty in zurdo/doff clothes History of Current Condition Pt is a 83yo male here for his new onset of ongoing R shoulder pain with range of motion. He stated he hurt his shoulder one day with a loud pop sound when he was extended his R shoulder while pulling his bedsheet to tidy his bed. His pain located at greater turberosity region who feels there is something clicking or snapping and R biceps area. He is currently unable to reach behind his back and lift his arm overhead , but able to reach further with AAROM from LUE. He denied tingling/ numbness and able to maintain good sleep by sleeping on his L side. Pt saw Dr. Rice and suspect possible a rotator cuff injury and bicep long head tendonopathy Prior Treatments and Tests N/A Treatment Goals Patient/Caregiver Goals 1. To be pain free for R shoulder ROM Current Functional Impairments (Reported) Functional Limitations- ADL's Needed L UE to assist for zurdo /doff clothes He primarily uses his L arm for most functional activities . PT-OP-C Subjective Start: 09/02/19 16:18 Freq: Status: Active Protocol: Document 09/16/19 11:15 DCW (Rec: 09/16/19 12:02 DCW [id number]) OP-PT Subjective Patient Comments Patient Comments How the shoulder is doing depends on when you ask. It comes and goes, but it's never actually 'good.' PT-OP-F Manual Assessment Start: 09/02/19 16:18 Freq: Status: Active Protocol: Document 09/02/19 16:19 (Rec: 09/02/19 16:56 [email or web address]) Manual Assessments Soft Tissue Assessment Soft Tissue Mobility Assessment pt screamed out for pain with pressure at proximal bicep belly and long head tendon tenderness noted at R infraspinatus and R pecs. PT-OP-H Neuro Start: 09/02/19 16:18 Freq: Status: Active Protocol: Document 09/02/19 16:19 (Rec: 09/02/19 16:56 [email or web address]) Deep Tendon Reflex & Clonus Assessment Deep Tendon Reflex Bilateral Tricep Deep Tendon Reflex 1+ Diminished Bilateral Bicep Deep Tendon Reflex 2+ Normal Bilateral Brachioradialis Deep Tendon Reflex 2+ Normal PT-OP-J Posture/Palpation/Skin Start: 09/02/19 16:18 Freq: Status: Active Protocol: Document 09/02/19 16:19 (Rec: 09/02/19 16:56 [email or web address]) Posture Evaluation Position Sitting Head/C-Spine Posture Forward Head T-Spine Posture Increased Kyphosis Scapula Posture (R) Protracted,(R) Elevated,(R ) Tipped PT-OP-K Range of Motion Start: 09/02/19 16:18 Freq: Status: Active Protocol: Document 09/02/19 16:19 (Rec: 09/02/19 16:56 [email or web address]) Shoulder Goniometric Range of Motion Shoulder Left Active Shoulder ROM WFL Yes Testing Position Standing Flexion 160 Abduction 158 External Rotation at 90 degrees 82 Abduction Internal Rotation 75 Right Passive Shoulder ROM WFL No Testing Position Supine Flexion 82 Abduction 84 External Rotation at 90 degrees 35 Abduction Internal Rotation 42 Right Active Shoulder ROM WFL No Testing Position Supine Flexion 72 Abduction 70 Shoulder ROM Limitations Shoulder ROM Limitations Soft Tissue Tightness,Pain Comments significant pain noted for AROM at greater tuberosity region but less pain with PROM Elbow/Forearm Range of Motion Elbow/Forearm Right Active Elbow/Forearm ROM WFL Yes Left Active Elbow/Forearm ROM WFL Yes PT-OP-L Special Tests Start: 09/02/19 16:18 Freq: Status: Active Protocol: Document 09/02/19 16:19 (Rec: 09/02/19 16:56 HH [email or web address]) Special Tests Shoulder Special Tests Speed's Biceps Comments unable to test d/t significant pain with both AROM/ PROM before he reached testing position Elevation Impingement Comments unable to test d/t significant pain with both AROM/ PROM before he reached testing position Drop Arm Rotator Cuff Comments unable to test d/t significant pain with both AROM/ PROM before he reached testing position PT-OP-M Strength Start: 09/02/19 16:18 Freq: Status: Active Protocol: Document 09/02/19 16:19 (Rec: 09/02/19 16:56 HH [email or web address]) Shoulder Strength Shoulder Manual Muscle Testing Left Flexion 4 Good Extension 4 Good Abduction (C5) 4 Good Adduction 4 Good External Rotation 4 Good Internal Rotation 4 Good Right Flexion 2- Poor- Abduction (C5) 2- Poor- Adduction 3+ Fair+ External Rotation 2+ Poor+ Internal Rotation 2+ Poor+ Elbow/Forearm Strength Elbow and Forearm Manual Muscle Testing Right Flexion (C6) 4 Good Extension (C7) 4 Good Comments inc in shoulder pain noted with resisted elbow flexion. Left Flexion (C6) 4 Good Extension (C7) 4 Good PT-OP-Q Treatments Start: 09/02/19 16:18 Freq: Status: Active Protocol: Document 09/16/19 11:15 DCW (Rec: 09/16/19 12:02 DCW [id number]) Therapeutic Exercises Supine Exercises serratus punch Supine Exercise Name serratus punch Side bilateral Comments AAROM, stopped d/t pain scap retraction Supine Exercise Name cues on pinching shoulder down to table Side bilateral Reps/Minutes 2-3 secs x 8 reps x 2 sets Comments for HEP Sidelying Exercises scapular retraction/depression Sidelying Exercise Name scapular retraction/depression Side right Resistance manual Reps/Minutes 5 min Comments pt cued for retraction/ depression againt PT manual resistance Sitting Exercises seated lat squeeze Sitting Exercise Name seated lat squeeze Side bilateral Equipment Used pt's walking stick Reps/Minutes 8 reps Comments pt cued to grasp walking stick with elbows 90 deg & push it into the floor scapular retraction Sitting Exercise Name scapular retraction Side bilateral Reps/Minutes 15 reps Comments max cues for engagement and squeeze Manual Therapy Treatment Soft Tissue Mobilization R pecs Body Location corocoid process region Mobilization Type Sustained Pressure,Trigger Point Release Intensity/Depth Moderate Body Position Supine Comments significant pain noted RTC Body Location infraspinatus, subscapularis Mobilization Type Sustained Pressure,Trigger Point Release Intensity/Depth Moderate Body Position Sidelying Comments significant pain noted at subscapularis R biceps Body Location bicep belly, long head tendon Mobilization Type Sustained Pressure,Trigger Point Release Intensity/Depth Moderate Body Position Supine Comments pt reports less pain symptoms along biceps this visit Joint Mobilizations GHJ Joint R GHJ Direction post glide Grade II Body Position Supine Reps/Duration 8 mins Comments pt unable to tolerate glides at 90 deg ABD; reduced to 75 deg with improved response followed by passive ER and IR with post glide. minimal pain noted. 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 LTG Duration 8 weeks ROM Impairment pt shows significant loss of ROM Short Term Goal (STG) Pt will gain 15 degrees or more to improve his R shoulder ROM STG Duration 4 weeks Radio Installer Goal (LTG) Pt will gain >25 degrees or more to improve his R shoulder ROM so he can reach behind his back to zurdo/ doff his clothes. LTG Duration 8 weeks Quickdash Impairment pt scores 59.01 on Quick Dash Short Term Goal (STG) Pt will score < 40 on quick dash STG Duration 4 weeks Mcfp Goal (LTG) Pt will score <30 on quick dash to improve his R shoulder functional mobility and strength LTG Duration 8 weeks Assessment Summary Assessment Pt tolerated treatment fairly well today, reported noticing much less discomfort during manual treatment. Pt struggled with serratus punch, both specific action and just getting into position. Physical Therapy Plan Frequency and Duration Frequency of Treatment 2x/Week Duration of Treatment 8 weeks Plan of Care Start Date 09/02/19 Plan of Care End Date 11/01/19 Therapeutic Interventions Therapeutic Interventions Home Exercise Program,Joint Mobilizations,Manual Therapy, Neuromuscular Re-education, Patient/Caregiver Education, Self-Care/Home Management,Soft Tissue Mobilization,Taping, Therapeutic Activities, Therapeutic Exercises Modalities Cold Pack/Ice Massage,Electric Stimulation,Hot Packs, Infrared Therapy,Iontophoresis Next Visit Focus/Plan Next Note Type Treatment Note Next Visit Plan review scap squeeze check post STM tolerance start with bicep tendon, pecs and RTc manual therapy post glide at [facility] AAROM/ PROM with PVC/ stick, isometric against wall for HEP
--- NOTE | 2019-09-19 11:17 | PT.OTN ---
Current Diagnoses Incomplete rotator cuff tear or rupture of unspecified shoulder, not specified as traumatic (09/19/19) Physical Therapy Treatment Note PT-OP-A Visit Information Start: 09/02/19 16:18 Freq: Status: Active Protocol: Document 09/19/19 10:30 DCW (Rec: 09/19/19 11:17 DCW [id number]) Out-Patient Physical Therapy Visit Information Visit Information Visit Type Treatment Note Visit Start Time 10:30 Visit Stop Time 11:15 Total Visit Minutes 45 Visit Number 07/01 Number of MOUNT LOADER Visits 0 Evaluation Information Evaluation Date 09/02/19 Precautions Precautions CHF pacemaker hx of falls bruise easily PT-OP-B Current Condition Start: 09/02/19 16:18 Freq: Status: Active Protocol: Document 09/02/19 16:19 HH (Rec: 09/02/19 16:56 HH [email or web address]) Current Condition History of Current Condition Onset Date late June Current Complaints R shoulder pain, unable to reach overhead, difficulty in zurdo/doff clothes History of Current Condition Pt is a 83yo male here for his new onset of ongoing R shoulder pain with range of motion. He stated he hurt his shoulder one day with a loud pop sound when he was extended his R shoulder while pulling his bedsheet to tidy his bed. His pain located at greater turberosity region who feels there is something clicking or snapping and R biceps area. He is currently unable to reach behind his back and lift his arm overhead , but able to reach further with AAROM from LUE. He denied tingling/ numbness and able to maintain good sleep by sleeping on his L side. Pt saw Dr. Rice and suspect possible a rotator cuff injury and bicep long head tendonopathy Prior Treatments and Tests N/A Treatment Goals Patient/Caregiver Goals 1. To be pain free for R shoulder ROM Current Functional Impairments (Reported) Functional Limitations- ADL's Needed L UE to assist for zurdo /doff clothes He primarily uses his L arm for most functional activities . PT-OP-C Subjective Start: 09/02/19 16:18 Freq: Status: Active Protocol: Document 09/19/19 10:30 DCW (Rec: 09/19/19 11:17 DCW [id number]) OP-PT Subjective Patient Comments Patient Comments It was doing better after Monday, and you know, it is still feeling better. PT-OP-F Manual Assessment Start: 09/02/19 16:18 Freq: Status: Active Protocol: Document 09/02/19 16:19 (Rec: 09/02/19 16:56 [email or web address]) Manual Assessments Soft Tissue Assessment Soft Tissue Mobility Assessment pt screamed out for pain with pressure at proximal bicep belly and long head tendon tenderness noted at R infraspinatus and R pecs. PT-OP-H Neuro Start: 09/02/19 16:18 Freq: Status: Active Protocol: Document 09/02/19 16:19 HH (Rec: 09/02/19 16:56 [email or web address]) Deep Tendon Reflex & Clonus Assessment Deep Tendon Reflex Bilateral Tricep Deep Tendon Reflex 1+ Diminished Bilateral Bicep Deep Tendon Reflex 2+ Normal Bilateral Brachioradialis Deep Tendon Reflex 2+ Normal PT-OP-J Posture/Palpation/Skin Start: 09/02/19 16:18 Freq: Status: Active Protocol: Document 09/02/19 16:19 HH (Rec: 09/02/19 16:56 [email or web address]) Posture Evaluation Position Sitting Head/C-Spine Posture Forward Head T-Spine Posture Increased Kyphosis Scapula Posture (R) Protracted,(R) Elevated,(R ) Tipped PT-OP-K Range of Motion Start: 09/02/19 16:18 Freq: Status: Active Protocol: Document 09/02/19 16:19 HH (Rec: 09/02/19 16:56 [email or web address]) Shoulder Goniometric Range of Motion Shoulder Left Active Shoulder ROM WFL Yes Testing Position Standing Flexion 160 Abduction 158 External Rotation at 90 degrees 82 Abduction Internal Rotation 75 Right Passive Shoulder ROM WFL No Testing Position Supine Flexion 82 Abduction 84 External Rotation at 90 degrees 35 Abduction Internal Rotation 42 Right Active Shoulder ROM WFL No Testing Position Supine Flexion 72 Abduction 70 Shoulder ROM Limitations Shoulder ROM Limitations Soft Tissue Tightness,Pain Comments significant pain noted for AROM at greater tuberosity region but less pain with PROM Elbow/Forearm Range of Motion Elbow/Forearm Right Active Elbow/Forearm ROM WFL Yes Left Active Elbow/Forearm ROM WFL Yes PT-OP-L Special Tests Start: 09/02/19 16:18 Freq: Status: Active Protocol: Document 09/02/19 16:19 HH (Rec: 09/02/19 16:56 [email or web address]) Special Tests Shoulder Special Tests Speed's Biceps Comments unable to test d/t significant pain with both AROM/ PROM before he reached testing position Elevation Impingement Comments unable to test d/t significant pain with both AROM/ PROM before he reached testing position Drop Arm Rotator Cuff Comments unable to test d/t significant pain with both AROM/ PROM before he reached testing position PT-OP-M Strength Start: 09/02/19 16:18 Freq: Status: Active Protocol: Document 09/02/19 16:19 (Rec: 09/02/19 16:56 [email or web address]) Shoulder Strength Shoulder Manual Muscle Testing Left Flexion 4 Good Extension 4 Good Abduction (C5) 4 Good Adduction 4 Good External Rotation 4 Good Internal Rotation 4 Good Right Flexion 2- Poor- Abduction (C5) 2- Poor- Adduction 3+ Fair+ External Rotation 2+ Poor+ Internal Rotation 2+ Poor+ Elbow/Forearm Strength Elbow and Forearm Manual Muscle Testing Right Flexion (C6) 4 Good Extension (C7) 4 Good Comments inc in shoulder pain noted with resisted elbow flexion. Left Flexion (C6) 4 Good Extension (C7) 4 Good PT-OP-Q Treatments Start: 09/02/19 16:18 Freq: Status: Active Protocol: Document 09/19/19 10:30 DCW (Rec: 09/19/19 11:17 DCW [id number]) Manual Therapy Treatment Soft Tissue Mobilization R pecs Body Location corocoid process region Mobilization Type Sustained Pressure,Trigger Point Release Intensity/Depth Moderate Body Position Supine Comments significant pain noted RTC Body Location infraspinatus, subscapularis Mobilization Type Sustained Pressure,Trigger Point Release Intensity/Depth Moderate Body Position Sidelying Comments significant pain noted at subscapularis R biceps Body Location bicep belly, long head tendon Mobilization Type Sustained Pressure,Trigger Point Release Intensity/Depth Moderate Body Position Supine Joint Mobilizations Scapulothoracic Joint R Scapulothoracic Direction inferiomedial Grade III Body Position Sidelying GHJ Joint R GHJ Direction post glide Grade II Body Position Supine Reps/Duration 8 mins Comments pt unable to tolerate glides at 90 deg ABD; reduced to 75 deg with improved response followed by passive ER and IR with post glide. minimal pain noted. 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 LTG Duration 8 weeks ROM Impairment pt shows significant loss of ROM Short Term Goal (STG) Pt will gain 15 degrees or more to improve his R shoulder ROM STG Duration 4 weeks Prison Goal (LTG) Pt will gain >25 degrees or more to improve his R shoulder ROM so he can reach behind his back to zurdo/ doff his clothes. LTG Duration 8 weeks Quickdash Impairment pt scores 59.01 on Quick Dash Short Term Goal (STG) Pt will score < 40 on quick dash STG Duration 4 weeks Manager Animal Goal (LTG) Pt will score <30 on quick dash to improve his R shoulder functional mobility and strength LTG Duration 8 weeks Assessment Summary Assessment Focused on all manual treatment today, pt's shoulder loosened up, able to demonstrate PROM fairly WNL. Physical Therapy Plan Frequency and Duration Frequency of Treatment 2x/Week Duration of Treatment 8 weeks Plan of Care Start Date 09/02/19 Plan of Care End Date 11/01/19 Therapeutic Interventions Therapeutic Interventions Home Exercise Program,Joint Mobilizations,Manual Therapy, Neuromuscular Re-education, Patient/Caregiver Education, Self-Care/Home Management,Soft Tissue Mobilization,Taping, Therapeutic Activities, Therapeutic Exercises Modalities Cold Pack/Ice Massage,Electric Stimulation,Hot Packs, Infrared Therapy,Iontophoresis Next Visit Focus/Plan Next Note Type Treatment Note Next Visit Plan review scap squeeze check post STM tolerance start with bicep tendon, pecs and RTc manual therapy post glide at [facility] AAROM/ PROM with PVC/ stick, isometric against wall for HEP
--- NOTE | 2019-09-24 15:16 | PT.OTN ---
Current Diagnoses Incomplete rotator cuff tear or rupture of unspecified shoulder, not specified as traumatic (09/24/19) Physical Therapy Treatment Note PT-OP-A Visit Information Start: 09/02/19 16:18 Freq: Status: Active Protocol: Document 09/24/19 14:30 DCW (Rec: 09/24/19 15:16 DCW [id number]) Out-Patient Physical Therapy Visit Information Visit Information Visit Type Treatment Note Visit Start Time 14:30 Visit Stop Time 15:15 Total Visit Minutes 45 Visit Number 08/01 Number of MANAGER URGENT CARE Visits 0 Evaluation Information Evaluation Date 09/02/19 Precautions Precautions CHF pacemaker hx of falls bruise easily PT-OP-B Current Condition Start: 09/02/19 16:18 Freq: Status: Active Protocol: Document 09/02/19 16:19 HH (Rec: 09/02/19 16:56 HH [email or web address]) Current Condition History of Current Condition Onset Date late June Current Complaints R shoulder pain, unable to reach overhead, difficulty in zurdo/doff clothes History of Current Condition Pt is a 83yo male here for his new onset of ongoing R shoulder pain with range of motion. He stated he hurt his shoulder one day with a loud pop sound when he was extended his R shoulder while pulling his bedsheet to tidy his bed. His pain located at greater turberosity region who feels there is something clicking or snapping and R biceps area. He is currently unable to reach behind his back and lift his arm overhead , but able to reach further with AAROM from LUE. He denied tingling/ numbness and able to maintain good sleep by sleeping on his L side. Pt saw Dr. Rice and suspect possible a rotator cuff injury and bicep long head tendonopathy Prior Treatments and Tests N/A Treatment Goals Patient/Caregiver Goals 1. To be pain free for R shoulder ROM Current Functional Impairments (Reported) Functional Limitations- ADL's Needed L UE to assist for zurdo /doff clothes He primarily uses his L arm for most functional activities . PT-OP-C Subjective Start: 09/02/19 16:18 Freq: Status: Active Protocol: Document 09/24/19 14:30 DCW (Rec: 09/24/19 15:16 DCW [id number]) OP-PT Subjective Patient Comments Patient Comments Pt admits he had a very painful weekend. PT-OP-F Manual Assessment Start: 09/02/19 16:18 Freq: Status: Active Protocol: Document 09/02/19 16:19 (Rec: 09/02/19 16:56 [email or web address]) Manual Assessments Soft Tissue Assessment Soft Tissue Mobility Assessment pt screamed out for pain with pressure at proximal bicep belly and long head tendon tenderness noted at R infraspinatus and R pecs. PT-OP-H Neuro Start: 09/02/19 16:18 Freq: Status: Active Protocol: Document 09/02/19 16:19 HH (Rec: 09/02/19 16:56 [email or web address]) Deep Tendon Reflex & Clonus Assessment Deep Tendon Reflex Bilateral Tricep Deep Tendon Reflex 1+ Diminished Bilateral Bicep Deep Tendon Reflex 2+ Normal Bilateral Brachioradialis Deep Tendon Reflex 2+ Normal PT-OP-J Posture/Palpation/Skin Start: 09/02/19 16:18 Freq: Status: Active Protocol: Document 09/02/19 16:19 (Rec: 09/02/19 16:56 [email or web address]) Posture Evaluation Position Sitting Head/C-Spine Posture Forward Head T-Spine Posture Increased Kyphosis Scapula Posture (R) Protracted,(R) Elevated,(R ) Tipped PT-OP-K Range of Motion Start: 09/02/19 16:18 Freq: Status: Active Protocol: Document 09/02/19 16:19 (Rec: 09/02/19 16:56 [email or web address]) Shoulder Goniometric Range of Motion Shoulder Left Active Shoulder ROM WFL Yes Testing Position Standing Flexion 160 Abduction 158 External Rotation at 90 degrees 82 Abduction Internal Rotation 75 Right Passive Shoulder ROM WFL No Testing Position Supine Flexion 82 Abduction 84 External Rotation at 90 degrees 35 Abduction Internal Rotation 42 Right Active Shoulder ROM WFL No Testing Position Supine Flexion 72 Abduction 70 Shoulder ROM Limitations Shoulder ROM Limitations Soft Tissue Tightness,Pain Comments significant pain noted for AROM at greater tuberosity region but less pain with PROM Elbow/Forearm Range of Motion Elbow/Forearm Right Active Elbow/Forearm ROM WFL Yes Left Active Elbow/Forearm ROM WFL Yes PT-OP-L Special Tests Start: 09/02/19 16:18 Freq: Status: Active Protocol: Document 09/02/19 16:19 (Rec: 09/02/19 16:56 [email or web address]) Special Tests Shoulder Special Tests Speed's Biceps Comments unable to test d/t significant pain with both AROM/ PROM before he reached testing position Elevation Impingement Comments unable to test d/t significant pain with both AROM/ PROM before he reached testing position Drop Arm Rotator Cuff Comments unable to test d/t significant pain with both AROM/ PROM before he reached testing position PT-OP-M Strength Start: 09/02/19 16:18 Freq: Status: Active Protocol: Document 09/02/19 16:19 HH (Rec: 09/02/19 16:56 HH [email or web address]) Shoulder Strength Shoulder Manual Muscle Testing Left Flexion 4 Good Extension 4 Good Abduction (C5) 4 Good Adduction 4 Good External Rotation 4 Good Internal Rotation 4 Good Right Flexion 2- Poor- Abduction (C5) 2- Poor- Adduction 3+ Fair+ External Rotation 2+ Poor+ Internal Rotation 2+ Poor+ Elbow/Forearm Strength Elbow and Forearm Manual Muscle Testing Right Flexion (C6) 4 Good Extension (C7) 4 Good Comments inc in shoulder pain noted with resisted elbow flexion. Left Flexion (C6) 4 Good Extension (C7) 4 Good PT-OP-Q Treatments Start: 09/02/19 16:18 Freq: Status: Active Protocol: Document 09/24/19 14:30 DCW (Rec: 09/24/19 15:16 DCW [id number]) Manual Therapy Treatment Soft Tissue Mobilization R pecs Body Location corocoid process region Mobilization Type Sustained Pressure,Trigger Point Release Intensity/Depth Moderate Body Position Supine Comments significant pain noted RTC Body Location infraspinatus, subscapularis Mobilization Type Sustained Pressure,Trigger Point Release Intensity/Depth Moderate Body Position Sidelying Comments significant pain noted at subscapularis R biceps Body Location bicep belly, long head tendon Mobilization Type Sustained Pressure,Trigger Point Release Intensity/Depth Moderate Body Position Supine Joint Mobilizations Scapulothoracic Joint R Scapulothoracic Direction inferiomedial Grade III Body Position Sidelying GHJ Joint R GHJ Direction post glide Grade II Body Position Supine Reps/Duration 8 mins Comments pt unable to tolerate glides at 90 deg ABD; reduced to 75 deg with improved response followed by passive ER and IR with post glide. minimal pain noted. 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 LTG Duration 8 weeks ROM Impairment pt shows significant loss of ROM Short Term Goal (STG) Pt will gain 15 degrees or more to improve his R shoulder ROM STG Duration 4 weeks Group Home Goal (LTG) Pt will gain >25 degrees or more to improve his R shoulder ROM so he can reach behind his back to zurdo/ doff his clothes. LTG Duration 8 weeks Quickdash Impairment pt scores 59.01 on Quick Dash Short Term Goal (STG) Pt will score < 40 on quick dash STG Duration 4 weeks Group Home Goal (LTG) Pt will score <30 on quick dash to improve his R shoulder functional mobility and strength LTG Duration 8 weeks Assessment Summary Assessment Attempted to be more gentle with STM/Manual therapy today, as pt was quite sore following his last appointment . Pt felt much better after today's session, reported he had no pain. Physical Therapy Plan Frequency and Duration Frequency of Treatment 2x/Week Duration of Treatment 8 weeks Plan of Care Start Date 09/02/19 Plan of Care End Date 11/01/19 Therapeutic Interventions Therapeutic Interventions Home Exercise Program,Joint Mobilizations,Manual Therapy, Neuromuscular Re-education, Patient/Caregiver Education, Self-Care/Home Management,Soft Tissue Mobilization,Taping, Therapeutic Activities, Therapeutic Exercises Modalities Cold Pack/Ice Massage,Electric Stimulation,Hot Packs, Infrared Therapy,Iontophoresis Next Visit Focus/Plan Next Note Type Treatment Note Next Visit Plan review scap squeeze check post STM tolerance start with bicep tendon, pecs and RTc manual therapy post glide at [facility] AAROM/ PROM with PVC/ stick, isometric against wall for HEP
--- NOTE | 2019-09-26 12:01 | PT.OTN ---
Current Diagnoses Incomplete rotator cuff tear or rupture of unspecified shoulder, not specified as traumatic (09/26/19) Physical Therapy Treatment Note PT-OP-A Visit Information Start: 09/02/19 16:18 Freq: Status: Active Protocol: Document 09/26/19 11:15 DCW (Rec: 09/26/19 12:01 DCW [id number]) Out-Patient Physical Therapy Visit Information Visit Information Visit Type Treatment Note Visit Start Time 11:15 Visit Stop Time 12:00 Total Visit Minutes 45 Visit Number 08/31 Number of HIDE AND SKIN CLASSER Visits 0 Evaluation Information Evaluation Date 09/02/19 Precautions Precautions CHF pacemaker hx of falls bruise easily PT-OP-B Current Condition Start: 09/02/19 16:18 Freq: Status: Active Protocol: Document 09/02/19 16:19 HH (Rec: 09/02/19 16:56 HH [email or web address]) Current Condition History of Current Condition Onset Date late June Current Complaints R shoulder pain, unable to reach overhead, difficulty in zurdo/doff clothes History of Current Condition Pt is a 83yo male here for his new onset of ongoing R shoulder pain with range of motion. He stated he hurt his shoulder one day with a loud pop sound when he was extended his R shoulder while pulling his bedsheet to tidy his bed. His pain located at greater turberosity region who feels there is something clicking or snapping and R biceps area. He is currently unable to reach behind his back and lift his arm overhead , but able to reach further with AAROM from LUE. He denied tingling/ numbness and able to maintain good sleep by sleeping on his L side. Pt saw Dr. Rice and suspect possible a rotator cuff injury and bicep long head tendonopathy Prior Treatments and Tests N/A Treatment Goals Patient/Caregiver Goals 1. To be pain free for R shoulder ROM Current Functional Impairments (Reported) Functional Limitations- ADL's Needed L UE to assist for zurdo /doff clothes He primarily uses his L arm for most functional activities . PT-OP-C Subjective Start: 09/02/19 16:18 Freq: Status: Active Protocol: Document 09/26/19 11:15 DCW (Rec: 09/26/19 12:01 DCW [id number]) OP-PT Subjective Patient Comments Patient Comments Shoulder feels marginally better today. PT-OP-F Manual Assessment Start: 09/02/19 16:18 Freq: Status: Active Protocol: Document 09/02/19 16:19 HH (Rec: 09/02/19 16:56 [email or web address]) Manual Assessments Soft Tissue Assessment Soft Tissue Mobility Assessment pt screamed out for pain with pressure at proximal bicep belly and long head tendon tenderness noted at R infraspinatus and R pecs. PT-OP-H Neuro Start: 09/02/19 16:18 Freq: Status: Active Protocol: Document 09/02/19 16:19 HH (Rec: 09/02/19 16:56 [email or web address]) Deep Tendon Reflex & Clonus Assessment Deep Tendon Reflex Bilateral Tricep Deep Tendon Reflex 1+ Diminished Bilateral Bicep Deep Tendon Reflex 2+ Normal Bilateral Brachioradialis Deep Tendon Reflex 2+ Normal PT-OP-J Posture/Palpation/Skin Start: 09/02/19 16:18 Freq: Status: Active Protocol: Document 09/02/19 16:19 HH (Rec: 09/02/19 16:56 [email or web address]) Posture Evaluation Position Sitting Head/C-Spine Posture Forward Head T-Spine Posture Increased Kyphosis Scapula Posture (R) Protracted,(R) Elevated,(R ) Tipped PT-OP-K Range of Motion Start: 09/02/19 16:18 Freq: Status: Active Protocol: Document 09/02/19 16:19 HH (Rec: 09/02/19 16:56 [email or web address]) Shoulder Goniometric Range of Motion Shoulder Left Active Shoulder ROM WFL Yes Testing Position Standing Flexion 160 Abduction 158 External Rotation at 90 degrees 82 Abduction Internal Rotation 75 Right Passive Shoulder ROM WFL No Testing Position Supine Flexion 82 Abduction 84 External Rotation at 90 degrees 35 Abduction Internal Rotation 42 Right Active Shoulder ROM WFL No Testing Position Supine Flexion 72 Abduction 70 Shoulder ROM Limitations Shoulder ROM Limitations Soft Tissue Tightness,Pain Comments significant pain noted for AROM at greater tuberosity region but less pain with PROM Elbow/Forearm Range of Motion Elbow/Forearm Right Active Elbow/Forearm ROM WFL Yes Left Active Elbow/Forearm ROM WFL Yes PT-OP-L Special Tests Start: 09/02/19 16:18 Freq: Status: Active Protocol: Document 09/02/19 16:19 HH (Rec: 09/02/19 16:56 [email or web address]) Special Tests Shoulder Special Tests Speed's Biceps Comments unable to test d/t significant pain with both AROM/ PROM before he reached testing position Elevation Impingement Comments unable to test d/t significant pain with both AROM/ PROM before he reached testing position Drop Arm Rotator Cuff Comments unable to test d/t significant pain with both AROM/ PROM before he reached testing position PT-OP-M Strength Start: 09/02/19 16:18 Freq: Status: Active Protocol: Document 09/02/19 16:19 HH (Rec: 09/02/19 16:56 HH [email or web address]) Shoulder Strength Shoulder Manual Muscle Testing Left Flexion 4 Good Extension 4 Good Abduction (C5) 4 Good Adduction 4 Good External Rotation 4 Good Internal Rotation 4 Good Right Flexion 2- Poor- Abduction (C5) 2- Poor- Adduction 3+ Fair+ External Rotation 2+ Poor+ Internal Rotation 2+ Poor+ Elbow/Forearm Strength Elbow and Forearm Manual Muscle Testing Right Flexion (C6) 4 Good Extension (C7) 4 Good Comments inc in shoulder pain noted with resisted elbow flexion. Left Flexion (C6) 4 Good Extension (C7) 4 Good PT-OP-Q Treatments Start: 09/02/19 16:18 Freq: Status: Active Protocol: Document 09/26/19 11:15 DCW (Rec: 09/26/19 12:01 DCW [id number]) Therapeutic Exercises Supine Exercises shoulder ER Supine Exercise Name ER /c PVC Side right Comments AROM serratus punch Supine Exercise Name serratus punch Side bilateral Comments AAROM, stopped d/t pain scaption and flexion Supine Exercise Name AAROM with cane Side right Reps/Minutes 5 x2 Manual Therapy Treatment Soft Tissue Mobilization R pecs Body Location corocoid process region Mobilization Type Sustained Pressure,Trigger Point Release Intensity/Depth Moderate Body Position Supine RTC Body Location infraspinatus, subscapularis Mobilization Type Sustained Pressure,Trigger Point Release Intensity/Depth Moderate Body Position Sidelying Comments significant pain noted at subscapularis R biceps Body Location bicep belly, long head tendon Mobilization Type Sustained Pressure,Trigger Point Release Intensity/Depth Moderate Body Position Supine Joint Mobilizations Scapulothoracic Joint R Scapulothoracic Direction inferiomedial Grade III Body Position Sidelying GHJ Joint R GHJ Direction post glide Grade II Body Position Supine Reps/Duration 8 mins Comments pt unable to tolerate glides at 90 deg ABD; reduced to 75 deg with improved response followed by passive ER and IR with post glide. minimal pain noted. 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 LTG Duration 8 weeks ROM Impairment pt shows significant loss of ROM Short Term Goal (STG) Pt will gain 15 degrees or more to improve his R shoulder ROM STG Duration 4 weeks Group Home Goal (LTG) Pt will gain >25 degrees or more to improve his R shoulder ROM so he can reach behind his back to zurdo/ doff his clothes. LTG Duration 8 weeks Quickdash Impairment pt scores 59.01 on Quick Dash Short Term Goal (STG) Pt will score < 40 on quick dash STG Duration 4 weeks Linen Keeper Goal (LTG) Pt will score <30 on quick dash to improve his R shoulder functional mobility and strength LTG Duration 8 weeks Assessment Summary Assessment Pt demonstrating improved AAROM/PROM today, as well as increased AROM in ER. Pt also presents with significant decrease in upper trap tone today. Physical Therapy Plan Frequency and Duration Frequency of Treatment 2x/Week Duration of Treatment 8 weeks Plan of Care Start Date 09/02/19 Plan of Care End Date 11/01/19 Therapeutic Interventions Therapeutic Interventions Home Exercise Program,Joint Mobilizations,Manual Therapy, Neuromuscular Re-education, Patient/Caregiver Education, Self-Care/Home Management,Soft Tissue Mobilization,Taping, Therapeutic Activities, Therapeutic Exercises Modalities Cold Pack/Ice Massage,Electric Stimulation,Hot Packs, Infrared Therapy,Iontophoresis Next Visit Focus/Plan Next Note Type Treatment Note Next Visit Plan review scap squeeze check post STM tolerance start with bicep tendon, pecs and RTc manual therapy post glide at [facility] AAROM/ PROM with PVC/ stick, isometric against wall for HEP
--- NOTE | 2019-10-01 12:26 | PT.OTN ---
Current Diagnoses Incomplete rotator cuff tear or rupture of unspecified shoulder, not specified as traumatic (10/01/19) Physical Therapy Treatment Note PT-OP-A Visit Information Start: 09/02/19 16:18 Freq: Status: Active Protocol: Document 10/01/19 10:34 HH (Rec: 10/01/19 12:26 HH [id number]) Out-Patient Physical Therapy Visit Information Visit Information Visit Type Treatment Note Visit Start Time 10:34 Visit Stop Time 11:15 Total Visit Minutes 41 Visit Number 10/01 Number of BIOLOGICAL SCIENTIST Visits 0 PT-OP-B Current Condition Start: 09/02/19 16:18 Freq: Status: Active Protocol: Document 09/02/19 16:19 HH (Rec: 09/02/19 16:56 HH [email or web address]) Current Condition History of Current Condition Onset Date late June Current Complaints R shoulder pain, unable to reach overhead, difficulty in zurdo/doff clothes History of Current Condition Pt is a 83yo male here for his new onset of ongoing R shoulder pain with range of motion. He stated he hurt his shoulder one day with a loud pop sound when he was extended his R shoulder while pulling his bedsheet to tidy his bed. His pain located at greater turberosity region who feels there is something clicking or snapping and R biceps area. He is currently unable to reach behind his back and lift his arm overhead , but able to reach further with AAROM from LUE. He denied tingling/ numbness and able to maintain good sleep by sleeping on his L side. Pt saw Dr. Rice and suspect possible a rotator cuff injury and bicep long head tendonopathy Prior Treatments and Tests N/A Treatment Goals Patient/Caregiver Goals 1. To be pain free for R shoulder ROM Current Functional Impairments (Reported) Functional Limitations- ADL's Needed L UE to assist for zurdo /doff clothes He primarily uses his L arm for most functional activities . PT-OP-C Subjective Start: 09/02/19 16:18 Freq: Status: Active Protocol: Document 10/01/19 10:34 HH (Rec: 10/01/19 12:26 HH [id number]) OP-PT Subjective Patient Comments Patient Comments I got very sore from last time but i could move my R arm forward for a little bit now PT-OP-F Manual Assessment Start: 09/02/19 16:18 Freq: Status: Active Protocol: Document 09/02/19 16:19 HH (Rec: 09/02/19 16:56 [email or web address]) Manual Assessments Soft Tissue Assessment Soft Tissue Mobility Assessment pt screamed out for pain with pressure at proximal bicep belly and long head tendon tenderness noted at R infraspinatus and R pecs. PT-OP-H Neuro Start: 09/02/19 16:18 Freq: Status: Active Protocol: Document 09/02/19 16:19 HH (Rec: 09/02/19 16:56 [email or web address]) Deep Tendon Reflex & Clonus Assessment Deep Tendon Reflex Bilateral Tricep Deep Tendon Reflex 1+ Diminished Bilateral Bicep Deep Tendon Reflex 2+ Normal Bilateral Brachioradialis Deep Tendon Reflex 2+ Normal PT-OP-J Posture/Palpation/Skin Start: 09/02/19 16:18 Freq: Status: Active Protocol: Document 09/02/19 16:19 HH (Rec: 09/02/19 16:56 [email or web address]) Posture Evaluation Position Sitting Head/C-Spine Posture Forward Head T-Spine Posture Increased Kyphosis Scapula Posture (R) Protracted,(R) Elevated,(R ) Tipped PT-OP-K Range of Motion Start: 09/02/19 16:18 Freq: Status: Active Protocol: Document 09/02/19 16:19 HH (Rec: 09/02/19 16:56 [email or web address]) Shoulder Goniometric Range of Motion Shoulder Left Active Shoulder ROM WFL Yes Testing Position Standing Flexion 160 Abduction 158 External Rotation at 90 degrees 82 Abduction Internal Rotation 75 Right Passive Shoulder ROM WFL No Testing Position Supine Flexion 82 Abduction 84 External Rotation at 90 degrees 35 Abduction Internal Rotation 42 Right Active Shoulder ROM WFL No Testing Position Supine Flexion 72 Abduction 70 Shoulder ROM Limitations Shoulder ROM Limitations Soft Tissue Tightness,Pain Comments significant pain noted for AROM at greater tuberosity region but less pain with PROM Elbow/Forearm Range of Motion Elbow/Forearm Right Active Elbow/Forearm ROM WFL Yes Left Active Elbow/Forearm ROM WFL Yes PT-OP-L Special Tests Start: 09/02/19 16:18 Freq: Status: Active Protocol: Document 09/02/19 16:19 HH (Rec: 09/02/19 16:56 [email or web address]) Special Tests Shoulder Special Tests Speed's Biceps Comments unable to test d/t significant pain with both AROM/ PROM before he reached testing position Elevation Impingement Comments unable to test d/t significant pain with both AROM/ PROM before he reached testing position Drop Arm Rotator Cuff Comments unable to test d/t significant pain with both AROM/ PROM before he reached testing position PT-OP-M Strength Start: 09/02/19 16:18 Freq: Status: Active Protocol: Document 09/02/19 16:19 HH (Rec: 09/02/19 16:56 HH [email or web address]) Shoulder Strength Shoulder Manual Muscle Testing Left Flexion 4 Good Extension 4 Good Abduction (C5) 4 Good Adduction 4 Good External Rotation 4 Good Internal Rotation 4 Good Right Flexion 2- Poor- Abduction (C5) 2- Poor- Adduction 3+ Fair+ External Rotation 2+ Poor+ Internal Rotation 2+ Poor+ Elbow/Forearm Strength Elbow and Forearm Manual Muscle Testing Right Flexion (C6) 4 Good Extension (C7) 4 Good Comments inc in shoulder pain noted with resisted elbow flexion. Left Flexion (C6) 4 Good Extension (C7) 4 Good PT-OP-Q Treatments Start: 09/02/19 16:18 Freq: Status: Active Protocol: Document 10/01/19 10:34 HH (Rec: 10/01/19 12:26 [id number]) Therapeutic Exercises Supine Exercises shoulder ER Supine Exercise Name ER /c PVC Side right Comments AROM, with no pain noted after manual therapy scaption and flexion Supine Exercise Name AAROM with cane Side right Reps/Minutes 5 x2 Comments PT assisted to set up first, pt was able to pass 100 degrees scap retraction Side bilateral Reps/Minutes 10 x2 Comments PT assisted to guide his scaps first. Manual Therapy Treatment Soft Tissue Mobilization Lats Mobilization Type Sustained Pressure,Trigger Point Release Intensity/Depth Moderate Body Position Supine Comments significant pain noted R pecs Body Location corocoid process region Mobilization Type Sustained Pressure,Trigger Point Release Intensity/Depth Moderate Body Position Supine RTC Body Location infraspinatus, subscapularis Mobilization Type Sustained Pressure,Trigger Point Release Intensity/Depth Moderate Body Position Sidelying Comments significant pain noted at subscapularis R biceps Body Location bicep belly, long head tendon Mobilization Type Sustained Pressure,Trigger Point Release Intensity/Depth Moderate Body Position Supine Joint Mobilizations GHJ Joint R GHJ Direction post glide Grade II Body Position Supine Reps/Duration 8 mins Comments pt able to tolerate glides at 90 deg ABD followed by passive ER and IR with post glide. minimal pain noted. 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 LTG Duration 8 weeks ROM Impairment pt shows significant loss of ROM Short Term Goal (STG) Pt will gain 15 degrees or more to improve his R shoulder ROM STG Duration 4 weeks [facility]iary Goal (LTG) Pt will gain >25 degrees or more to improve his R shoulder ROM so he can reach behind his back to zurdo/ doff his clothes. LTG Duration 8 weeks Quickdash Impairment pt scores 59.01 on Quick Dash Short Term Goal (STG) Pt will score < 40 on quick dash STG Duration 4 weeks Master Ship Goal (LTG) Pt will score <30 on quick dash to improve his R shoulder functional mobility and strength LTG Duration 8 weeks Assessment Summary Assessment tx focused on manual therapy today followed by JONELLE. He R lat is limiting his abduction and pt has significant increased ROM with passive abd / flexion at 100, ER to 70 with 90 abd at the end of session. Encouraged pt to do HEP with provided 2nd set of HEP copy. since he stated he tends to forget doing them Physical Therapy Plan Next Visit Focus/Plan Next Note Type Treatment Note Next Visit Plan review scap squeeze check post STM tolerance start with bicep tendon, pecs and RTc manual therapy post glide at [facility] JONELLE/ EDMAR with PVC/ stick, isometric against wall for HEP
--- NOTE | 2019-10-03 11:15 | PT.OTN ---
Current Diagnoses Incomplete rotator cuff tear or rupture of unspecified shoulder, not specified as traumatic (10/03/19) Physical Therapy Treatment Note PT-OP-A Visit Information Start: 09/02/19 16:18 Freq: Status: Active Protocol: Document 10/03/19 10:30 DCW (Rec: 10/03/19 11:14 DCW [id number]) Out-Patient Physical Therapy Visit Information Visit Information Visit Type Treatment Note Visit Start Time 10:30 Visit Stop Time 11:15 Total Visit Minutes 45 Visit Number 11/01 Number of MANAGER GRAPHIC Visits 0 Evaluation Information Evaluation Date 09/02/19 Precautions Precautions CHF pacemaker hx of falls bruise easily PT-OP-B Current Condition Start: 09/02/19 16:18 Freq: Status: Active Protocol: Document 09/02/19 16:19 HH (Rec: 09/02/19 16:56 HH [email or web address]) Current Condition History of Current Condition Onset Date late June Current Complaints R shoulder pain, unable to reach overhead, difficulty in zurdo/doff clothes History of Current Condition Pt is a 83yo male here for his new onset of ongoing R shoulder pain with range of motion. He stated he hurt his shoulder one day with a loud pop sound when he was extended his R shoulder while pulling his bedsheet to tidy his bed. His pain located at greater turberosity region who feels there is something clicking or snapping and R biceps area. He is currently unable to reach behind his back and lift his arm overhead , but able to reach further with AAROM from LUE. He denied tingling/ numbness and able to maintain good sleep by sleeping on his L side. Pt saw Dr. Rice and suspect possible a rotator cuff injury and bicep long head tendonopathy Prior Treatments and Tests N/A Treatment Goals Patient/Caregiver Goals 1. To be pain free for R shoulder ROM Current Functional Impairments (Reported) Functional Limitations- ADL's Needed L UE to assist for zurdo /doff clothes He primarily uses his L arm for most functional activities . PT-OP-C Subjective Start: 09/02/19 16:18 Freq: Status: Active Protocol: Document 10/03/19 10:30 DCW (Rec: 10/03/19 11:14 DCW [id number]) OP-PT Subjective Patient Comments Patient Comments I woke up this morning at 3: 45, and my shoulder was perfect. I couldn't go back to sleep until about 5:30. When I woke up again, it was... alright, still pretty painful. PT-OP-F Manual Assessment Start: 09/02/19 16:18 Freq: Status: Active Protocol: Document 09/02/19 16:19 (Rec: 09/02/19 16:56 [email or web address]) Manual Assessments Soft Tissue Assessment Soft Tissue Mobility Assessment pt screamed out for pain with pressure at proximal bicep belly and long head tendon tenderness noted at R infraspinatus and R pecs. PT-OP-H Neuro Start: 09/02/19 16:18 Freq: Status: Active Protocol: Document 09/02/19 16:19 (Rec: 09/02/19 16:56 [email or web address]) Deep Tendon Reflex & Clonus Assessment Deep Tendon Reflex Bilateral Tricep Deep Tendon Reflex 1+ Diminished Bilateral Bicep Deep Tendon Reflex 2+ Normal Bilateral Brachioradialis Deep Tendon Reflex 2+ Normal PT-OP-J Posture/Palpation/Skin Start: 09/02/19 16:18 Freq: Status: Active Protocol: Document 09/02/19 16:19 (Rec: 09/02/19 16:56 [email or web address]) Posture Evaluation Position Sitting Head/C-Spine Posture Forward Head T-Spine Posture Increased Kyphosis Scapula Posture (R) Protracted,(R) Elevated,(R ) Tipped PT-OP-K Range of Motion Start: 09/02/19 16:18 Freq: Status: Active Protocol: Document 09/02/19 16:19 (Rec: 09/02/19 16:56 [email or web address]) Shoulder Goniometric Range of Motion Shoulder Left Active Shoulder ROM WFL Yes Testing Position Standing Flexion 160 Abduction 158 External Rotation at 90 degrees 82 Abduction Internal Rotation 75 Right Passive Shoulder ROM WFL No Testing Position Supine Flexion 82 Abduction 84 External Rotation at 90 degrees 35 Abduction Internal Rotation 42 Right Active Shoulder ROM WFL No Testing Position Supine Flexion 72 Abduction 70 Shoulder ROM Limitations Shoulder ROM Limitations Soft Tissue Tightness,Pain Comments significant pain noted for AROM at greater tuberosity region but less pain with PROM Elbow/Forearm Range of Motion Elbow/Forearm Right Active Elbow/Forearm ROM WFL Yes Left Active Elbow/Forearm ROM WFL Yes PT-OP-L Special Tests Start: 09/02/19 16:18 Freq: Status: Active Protocol: Document 09/02/19 16:19 HH (Rec: 09/02/19 16:56 HH [email or web address]) Special Tests Shoulder Special Tests Speed's Biceps Comments unable to test d/t significant pain with both AROM/ PROM before he reached testing position Elevation Impingement Comments unable to test d/t significant pain with both AROM/ PROM before he reached testing position Drop Arm Rotator Cuff Comments unable to test d/t significant pain with both AROM/ PROM before he reached testing position PT-OP-M Strength Start: 09/02/19 16:18 Freq: Status: Active Protocol: Document 09/02/19 16:19 HH (Rec: 09/02/19 16:56 HH [email or web address]) Shoulder Strength Shoulder Manual Muscle Testing Left Flexion 4 Good Extension 4 Good Abduction (C5) 4 Good Adduction 4 Good External Rotation 4 Good Internal Rotation 4 Good Right Flexion 2- Poor- Abduction (C5) 2- Poor- Adduction 3+ Fair+ External Rotation 2+ Poor+ Internal Rotation 2+ Poor+ Elbow/Forearm Strength Elbow and Forearm Manual Muscle Testing Right Flexion (C6) 4 Good Extension (C7) 4 Good Comments inc in shoulder pain noted with resisted elbow flexion. Left Flexion (C6) 4 Good Extension (C7) 4 Good PT-OP-Q Treatments Start: 09/02/19 16:18 Freq: Status: Active Protocol: Document 10/03/19 10:30 DCW (Rec: 10/03/19 11:14 DCW [id number]) Therapeutic Exercises Supine Exercises scaption and flexion Supine Exercise Name AAROM with cane Side right Reps/Minutes 5 x2 Comments PT assisted to set up first, pt was able to pass 100 degrees scap retraction Side bilateral Reps/Minutes 10 x2 Comments PT assisted to guide his scaps first. Manual Therapy Treatment Soft Tissue Mobilization Lats Mobilization Type Sustained Pressure,Trigger Point Release Intensity/Depth Moderate Body Position Supine Comments significant pain noted R pecs Body Location corocoid process region Mobilization Type Sustained Pressure,Trigger Point Release Intensity/Depth Moderate Body Position Supine RTC Body Location infraspinatus, subscapularis Mobilization Type Sustained Pressure,Trigger Point Release Intensity/Depth Moderate Body Position Sidelying Comments significant pain noted at subscapularis R biceps Body Location bicep belly, long head tendon Mobilization Type Sustained Pressure,Trigger Point Release Intensity/Depth Moderate Body Position Supine Joint Mobilizations Scapulothoracic Joint R Scapulothoracic Direction lateral Grade III Body Position Supine GHJ Joint R GHJ Direction post glide Grade II Body Position Supine Reps/Duration 8 mins Comments pt able to tolerate glides at 90 deg ABD followed by passive ER and IR with post glide. minimal pain noted. 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 LTG Duration 8 weeks ROM Impairment pt shows significant loss of ROM Short Term Goal (STG) Pt will gain 15 degrees or more to improve his R shoulder ROM STG Duration 4 weeks Child Protection Specialist Goal (LTG) Pt will gain >25 degrees or more to improve his R shoulder ROM so he can reach behind his back to zurdo/ doff his clothes. LTG Duration 8 weeks Quickdash Impairment pt scores 59.01 on Quick Dash Short Term Goal (STG) Pt will score < 40 on quick dash STG Duration 4 weeks Care Home Goal (LTG) Pt will score <30 on quick dash to improve his R shoulder functional mobility and strength LTG Duration 8 weeks Assessment Summary Assessment Pt showing significant improvement today. Significantly less tenderness with palpation, and improved mobility. Pt able to retract scapula and maintain improved posture for an extended period of time. Physical Therapy Plan Frequency and Duration Frequency of Treatment 2x/Week Duration of Treatment 8 weeks Plan of Care Start Date 09/02/19 Plan of Care End Date 11/01/19 Therapeutic Interventions Therapeutic Interventions Home Exercise Program,Joint Mobilizations,Manual Therapy, Neuromuscular Re-education, Patient/Caregiver Education, Self-Care/Home Management,Soft Tissue Mobilization,Taping, Therapeutic Activities, Therapeutic Exercises Modalities Cold Pack/Ice Massage,Electric Stimulation,Hot Packs, Infrared Therapy,Iontophoresis Next Visit Focus/Plan Next Note Type Treatment Note Next Visit Plan review scap squeeze check post STM tolerance start with bicep tendon, pecs and RTc manual therapy post glide at [facility] AAROM/ PROM with PVC/ stick, isometric against wall for HEP
--- NOTE | 2019-10-10 12:19 | PT.OTN ---
Current Diagnoses Incomplete rotator cuff tear or rupture of unspecified shoulder, not specified as traumatic (10/10/19) Physical Therapy Treatment Note PT-OP-A Visit Information Start: 09/02/19 16:18 Freq: Status: Active Protocol: Document 10/10/19 12:11 HH (Rec: 10/10/19 12:19 [id number]) Out-Patient Physical Therapy Visit Information Visit Information Visit Type Treatment Note Visit Start Time 11:17 Visit Stop Time 11:59 Total Visit Minutes 42 Visit Number 12/01 Number of GUSSET STITCHER Visits 0 PT-OP-B Current Condition Start: 09/02/19 16:18 Freq: Status: Active Protocol: Document 09/02/19 16:19 HH (Rec: 09/02/19 16:56 HH [email or web address]) Current Condition History of Current Condition Onset Date late June Current Complaints R shoulder pain, unable to reach overhead, difficulty in zurdo/doff clothes History of Current Condition Pt is a 83yo male here for his new onset of ongoing R shoulder pain with range of motion. He stated he hurt his shoulder one day with a loud pop sound when he was extended his R shoulder while pulling his bedsheet to tidy his bed. His pain located at greater turberosity region who feels there is something clicking or snapping and R biceps area. He is currently unable to reach behind his back and lift his arm overhead , but able to reach further with AAROM from LUE. He denied tingling/ numbness and able to maintain good sleep by sleeping on his L side. Pt saw Dr. Rice and suspect possible a rotator cuff injury and bicep long head tendonopathy Prior Treatments and Tests N/A Treatment Goals Patient/Caregiver Goals 1. To be pain free for R shoulder ROM Current Functional Impairments (Reported) Functional Limitations- ADL's Needed L UE to assist for zurdo /doff clothes He primarily uses his L arm for most functional activities . PT-OP-C Subjective Start: 09/02/19 16:18 Freq: Status: Active Protocol: Document 10/10/19 12:11 HH (Rec: 10/10/19 12:19 HH [id number]) OP-PT Subjective Patient Comments Patient Comments Im doing the same and im not sure if we are making any progress. PT-OP-F Manual Assessment Start: 09/02/19 16:18 Freq: Status: Active Protocol: Document 09/02/19 16:19 (Rec: 09/02/19 16:56 [email or web address]) Manual Assessments Soft Tissue Assessment Soft Tissue Mobility Assessment pt screamed out for pain with pressure at proximal bicep belly and long head tendon tenderness noted at R infraspinatus and R pecs. PT-OP-H Neuro Start: 09/02/19 16:18 Freq: Status: Active Protocol: Document 09/02/19 16:19 HH (Rec: 09/02/19 16:56 [email or web address]) Deep Tendon Reflex & Clonus Assessment Deep Tendon Reflex Bilateral Tricep Deep Tendon Reflex 1+ Diminished Bilateral Bicep Deep Tendon Reflex 2+ Normal Bilateral Brachioradialis Deep Tendon Reflex 2+ Normal PT-OP-J Posture/Palpation/Skin Start: 09/02/19 16:18 Freq: Status: Active Protocol: Document 09/02/19 16:19 (Rec: 09/02/19 16:56 [email or web address]) Posture Evaluation Position Sitting Head/C-Spine Posture Forward Head T-Spine Posture Increased Kyphosis Scapula Posture (R) Protracted,(R) Elevated,(R ) Tipped PT-OP-K Range of Motion Start: 09/02/19 16:18 Freq: Status: Active Protocol: Document 09/02/19 16:19 (Rec: 09/02/19 16:56 [email or web address]) Shoulder Goniometric Range of Motion Shoulder Left Active Shoulder ROM WFL Yes Testing Position Standing Flexion 160 Abduction 158 External Rotation at 90 degrees 82 Abduction Internal Rotation 75 Right Passive Shoulder ROM WFL No Testing Position Supine Flexion 82 Abduction 84 External Rotation at 90 degrees 35 Abduction Internal Rotation 42 Right Active Shoulder ROM WFL No Testing Position Supine Flexion 72 Abduction 70 Shoulder ROM Limitations Shoulder ROM Limitations Soft Tissue Tightness,Pain Comments significant pain noted for AROM at greater tuberosity region but less pain with PROM Elbow/Forearm Range of Motion Elbow/Forearm Right Active Elbow/Forearm ROM WFL Yes Left Active Elbow/Forearm ROM WFL Yes PT-OP-L Special Tests Start: 09/02/19 16:18 Freq: Status: Active Protocol: Document 09/02/19 16:19 (Rec: 09/02/19 16:56 [email or web address]) Special Tests Shoulder Special Tests Speed's Biceps Comments unable to test d/t significant pain with both AROM/ PROM before he reached testing position Elevation Impingement Comments unable to test d/t significant pain with both AROM/ PROM before he reached testing position Drop Arm Rotator Cuff Comments unable to test d/t significant pain with both AROM/ PROM before he reached testing position PT-OP-M Strength Start: 09/02/19 16:18 Freq: Status: Active Protocol: Document 09/02/19 16:19 (Rec: 09/02/19 16:56 [email or web address]) Shoulder Strength Shoulder Manual Muscle Testing Left Flexion 4 Good Extension 4 Good Abduction (C5) 4 Good Adduction 4 Good External Rotation 4 Good Internal Rotation 4 Good Right Flexion 2- Poor- Abduction (C5) 2- Poor- Adduction 3+ Fair+ External Rotation 2+ Poor+ Internal Rotation 2+ Poor+ Elbow/Forearm Strength Elbow and Forearm Manual Muscle Testing Right Flexion (C6) 4 Good Extension (C7) 4 Good Comments inc in shoulder pain noted with resisted elbow flexion. Left Flexion (C6) 4 Good Extension (C7) 4 Good PT-OP-Q Treatments Start: 09/02/19 16:18 Freq: Status: Active Protocol: Document 10/10/19 12:11 (Rec: 10/10/19 12:19 [id number]) Therapeutic Exercises Supine Exercises scap retraction Side bilateral Reps/Minutes 10 x2 Comments PT hand underneath R scap to cue. Sidelying Exercises scapular retraction/depression Sidelying Exercise Name with PT tactile guidance first then provides resistance Side right Reps/Minutes 4 mins Comments muscle guarding noted at R side, need cues to relax Sitting Exercises OH oliva Sitting Exercise Name flexion and abd Side right Reps/Minutes 8 mins Comments flexion up to 80 degrees, abd up 60-70 degrees. Pt needed cues to use Lto A Manual Therapy Treatment Soft Tissue Mobilization Lats Mobilization Type Sustained Pressure,Trigger Point Release Intensity/Depth Moderate Body Position Supine Comments significant pain noted R pecs Body Location corocoid process region Mobilization Type Sustained Pressure,Trigger Point Release Intensity/Depth Moderate Body Position Supine RTC Body Location infraspinatus, subscapularis Mobilization Type Sustained Pressure,Trigger Point Release Intensity/Depth Moderate Body Position Sidelying Comments significant pain noted at subscapularis Joint Mobilizations GHJ Joint R GHJ Direction post glide Grade II Body Position Supine Reps/Duration 8 mins Comments pt able to tolerate glides at 90 deg ABD followed by passive ER and IR with post glide. minimal pain noted. 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 LTG Duration 8 weeks ROM Impairment pt shows significant loss of ROM Short Term Goal (STG) Pt will gain 15 degrees or more to improve his R shoulder ROM STG Duration 4 weeks Plaster Machine Operator Goal (LTG) Pt will gain >25 degrees or more to improve his R shoulder ROM so he can reach behind his back to zurdo/ doff his clothes. LTG Duration 8 weeks Quickdash Impairment pt scores 59.01 on Quick Dash Short Term Goal (STG) Pt will score < 40 on quick dash STG Duration 4 weeks Plaster Machine Operator Goal (LTG) Pt will score <30 on quick dash to improve his R shoulder functional mobility and strength LTG Duration 8 weeks Assessment Summary Assessment Pt tends to have muscle guarding upon passive movements, along with limited scapular movements. Needed constant cues to faciltate relaxation. Added passive scap movements followed by CINDI baptiste. Rec him to acquire one for Home use. Physical Therapy Plan Next Visit Focus/Plan Next Note Type Progress Note Next Visit Plan review scap squeeze check post STM tolerance start with bicep tendon, pecs and RTc manual therapy post glide at [facility] AAROM/ PROM with PVC/ stick, isometric against wall for HEP
--- NOTE | 2019-10-15 12:10 | PT.OTN ---
Current Diagnoses Incomplete rotator cuff tear or rupture of unspecified shoulder, not specified as traumatic (10/15/19) Physical Therapy Treatment Note PT-OP-A Visit Information Start: 09/02/19 16:18 Freq: Status: Active Protocol: Document 10/15/19 11:18 HH (Rec: 10/15/19 12:09 [id number]) Out-Patient Physical Therapy Visit Information Visit Information Visit Type Progress Note Visit Start Time 11:16 Visit Stop Time 11:59 Total Visit Minutes 43 Visit Number 01/01 Number of FLATWORK FINISHER Visits 0 PT-OP-B Current Condition Start: 09/02/19 16:18 Freq: Status: Active Protocol: Document 09/02/19 16:19 HH (Rec: 09/02/19 16:56 HH [email or web address]) Current Condition History of Current Condition Onset Date late June Current Complaints R shoulder pain, unable to reach overhead, difficulty in zurdo/doff clothes History of Current Condition Pt is a 83yo male here for his new onset of ongoing R shoulder pain with range of motion. He stated he hurt his shoulder one day with a loud pop sound when he was extended his R shoulder while pulling his bedsheet to tidy his bed. His pain located at greater turberosity region who feels there is something clicking or snapping and R biceps area. He is currently unable to reach behind his back and lift his arm overhead , but able to reach further with AAROM from LUE. He denied tingling/ numbness and able to maintain good sleep by sleeping on his L side. Pt saw Dr. Rice and suspect possible a rotator cuff injury and bicep long head tendonopathy Prior Treatments and Tests N/A Treatment Goals Patient/Caregiver Goals 1. To be pain free for R shoulder ROM Current Functional Impairments (Reported) Functional Limitations- ADL's Needed L UE to assist for zurdo /doff clothes He primarily uses his L arm for most functional activities . PT-OP-C Subjective Start: 09/02/19 16:18 Freq: Status: Active Protocol: Document 10/15/19 11:18 HH (Rec: 10/15/19 12:09 [id number]) OP-PT Subjective Patient Comments Patient Comments I was able to sleep on my R side last night which was the first time since my shoulder injury. I was moving pretty well during the weekend. I was able to hold on to railings for stairs this weekend Patient Reported Progress Improving PT-OP-F Manual Assessment Start: 09/02/19 16:18 Freq: Status: Active Protocol: Document 09/02/19 16:19 HH (Rec: 09/02/19 16:56 [email or web address]) Manual Assessments Soft Tissue Assessment Soft Tissue Mobility Assessment pt screamed out for pain with pressure at proximal bicep belly and long head tendon tenderness noted at R infraspinatus and R pecs. PT-OP-H Neuro Start: 09/02/19 16:18 Freq: Status: Active Protocol: Document 09/02/19 16:19 HH (Rec: 09/02/19 16:56 [email or web address]) Deep Tendon Reflex & Clonus Assessment Deep Tendon Reflex Bilateral Tricep Deep Tendon Reflex 1+ Diminished Bilateral Bicep Deep Tendon Reflex 2+ Normal Bilateral Brachioradialis Deep Tendon Reflex 2+ Normal PT-OP-J Posture/Palpation/Skin Start: 09/02/19 16:18 Freq: Status: Active Protocol: Document 09/02/19 16:19 HH (Rec: 09/02/19 16:56 [email or web address]) Posture Evaluation Position Sitting Head/C-Spine Posture Forward Head T-Spine Posture Increased Kyphosis Scapula Posture (R) Protracted,(R) Elevated,(R ) Tipped PT-OP-K Range of Motion Start: 09/02/19 16:18 Freq: Status: Active Protocol: Document 10/15/19 12:09 HH (Rec: 10/15/19 12:10 HH [id number]) Shoulder Goniometric Range of Motion Shoulder Right Passive Shoulder ROM WFL No Testing Position Supine Flexion 110 Abduction 95 External Rotation at 90 degrees 48 Abduction Right Active Shoulder ROM WFL No Testing Position Supine Flexion 88 Abduction 84 External Rotation at 90 degrees 46 Abduction PT-OP-L Special Tests Start: 09/02/19 16:18 Freq: Status: Active Protocol: Document 09/02/19 16:19 HH (Rec: 09/02/19 16:56 [email or web address]) Special Tests Shoulder Special Tests Speed's Biceps Comments unable to test d/t significant pain with both AROM/ PROM before he reached testing position Elevation Impingement Comments unable to test d/t significant pain with both AROM/ PROM before he reached testing position Drop Arm Rotator Cuff Comments unable to test d/t significant pain with both AROM/ PROM before he reached testing position PT-OP-M Strength Start: 09/02/19 16:18 Freq: Status: Active Protocol: Document 09/02/19 16:19 (Rec: 09/02/19 16:56 [email or web address]) Shoulder Strength Shoulder Manual Muscle Testing Left Flexion 4 Good Extension 4 Good Abduction (C5) 4 Good Adduction 4 Good External Rotation 4 Good Internal Rotation 4 Good Right Flexion 2- Poor- Abduction (C5) 2- Poor- Adduction 3+ Fair+ External Rotation 2+ Poor+ Internal Rotation 2+ Poor+ Elbow/Forearm Strength Elbow and Forearm Manual Muscle Testing Right Flexion (C6) 4 Good Extension (C7) 4 Good Comments inc in shoulder pain noted with resisted elbow flexion. Left Flexion (C6) 4 Good Extension (C7) 4 Good PT-OP-Q Treatments Start: 09/02/19 16:18 Freq: Status: Active Protocol: Document 10/15/19 11:18 (Rec: 10/15/19 12:09 [id number]) Therapeutic Exercises Supine Exercises scap retraction Side bilateral Reps/Minutes 8 x1 Comments PT hand underneath R scap to cue. Sidelying Exercises scapular retraction/depression Sidelying Exercise Name with PT tactile guidance first then provides resistance Side right Reps/Minutes 4 mins Comments muscle guarding noted at R side, need cues to relax Sitting Exercises OH oliva Sitting Exercise Name flexion and abd Side right Reps/Minutes 8 mins Comments flexion up to 80 degrees, abd up 60-70 degrees. Pt needed cues to use Lto A Manual Therapy Treatment Soft Tissue Mobilization Lats Mobilization Type Sustained Pressure,Trigger Point Release Intensity/Depth Moderate Body Position Supine Comments significant pain noted R pecs Body Location corocoid process region Mobilization Type Sustained Pressure,Trigger Point Release Intensity/Depth Moderate Body Position Supine RTC Body Location infraspinatus, Mobilization Type Sustained Pressure,Trigger Point Release Intensity/Depth Moderate Body Position Sidelying R biceps Body Location bicep belly, long head tendon Mobilization Type Sustained Pressure,Trigger Point Release Intensity/Depth Moderate Body Position Supine Joint Mobilizations GHJ Joint R GHJ Direction post glide Grade II Body Position Supine Reps/Duration 8 mins Comments pt able to tolerate glides at 90 deg ABD followed by passive ER and IR with post glide. minimal pain noted. passive ER close to 70 degrees PT-OP-T Assessment and Plan Start: 09/02/19 16:18 Freq: Status: Active Protocol: Document 10/15/19 11:18 (Rec: 10/15/19 12:09 [id number]) Physical Therapy Assessment Goals pain Impairment Pt has R shoulder pain ~8/10 Short Term Goal (STG) 10/14 Pt has 6/10 pain in general. He started able to sleep on his R side, use B rails for stair climbing. Middle School Teacher Goal (LTG) Pt will have no more than 4/10 for his R shoulder during the day so he can comlpete his emt i/99, 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 LTG Duration 8 weeks ROM Impairment pt shows significant loss of ROM Short Term Goal (STG) 10/14 Pt gained approx 15 degrees for flexion, abd and ER in supine (both active and passive) STG Duration 4 weeks Snf Goal (LTG) Pt will gain >25 degrees or more to improve his R shoulder ROM so he can reach behind his back to zurdo/ doff his clothes. LTG Duration 8 weeks Quickdash Impairment pt scores 59.01 on Quick Dash Short Term Goal (STG) Pt will score < 40 on quick dash STG Duration 4 weeks Middle School Teacher Goal (LTG) Pt will score <30 on quick dash to improve his R shoulder functional mobility and strength LTG Duration 8 weeks Progress Towards Goals Progress Towards Goals Slow Progress due to Activity Tolerance,Slow Progress due to Noncompliance,Slow Progress - Other Assessment Summary Assessment Pt has slight improvements on ROM with less pain in general 6/10. Pt has very low pain sensitivity in general and poor compliance on home exercises. However, pt acquired OH oliva and started being able to sleep on R side occasionally and use B railings for stair climbing. 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 Physical Therapy Plan Next Visit Focus/Plan Next Note Type Treatment Note Next Visit Plan review scap squeeze check post STM tolerance scap mobility start with bicep tendon, pecs and RTc manual therapy post glide at [facility] AAROM/ PROM with PVC/ stick, isometric against wall for HEP
--- NOTE | 2019-10-17 12:00 | PT.OTN ---
Current Diagnoses Incomplete rotator cuff tear or rupture of unspecified shoulder, not specified as traumatic (10/17/19) Physical Therapy Treatment Note PT-OP-A Visit Information Start: 09/02/19 16:18 Freq: Status: Active Protocol: Document 10/17/19 11:49 HH (Rec: 10/17/19 12:00 HH [id number]) Out-Patient Physical Therapy Visit Information Visit Information Visit Type Treatment Note Visit Start Time 11:18 Visit Stop Time 12:55 Total Visit Minutes 37 Visit Number 01/31 PT-OP-B Current Condition Start: 09/02/19 16:18 Freq: Status: Active Protocol: Document 09/02/19 16:19 HH (Rec: 09/02/19 16:56 HH [email or web address]) Current Condition History of Current Condition Onset Date late June Current Complaints R shoulder pain, unable to reach overhead, difficulty in zurdo/doff clothes History of Current Condition Pt is a 83yo male here for his new onset of ongoing R shoulder pain with range of motion. He stated he hurt his shoulder one day with a loud pop sound when he was extended his R shoulder while pulling his bedsheet to tidy his bed. His pain located at greater turberosity region who feels there is something clicking or snapping and R biceps area. He is currently unable to reach behind his back and lift his arm overhead , but able to reach further with AAROM from LUE. He denied tingling/ numbness and able to maintain good sleep by sleeping on his L side. Pt saw Dr. Rice and suspect possible a rotator cuff injury and bicep long head tendonopathy Prior Treatments and Tests N/A Treatment Goals Patient/Caregiver Goals 1. To be pain free for R shoulder ROM Current Functional Impairments (Reported) Functional Limitations- ADL's Needed L UE to assist for zurdo /doff clothes He primarily uses his L arm for most functional activities . PT-OP-C Subjective Start: 09/02/19 16:18 Freq: Status: Active Protocol: Document 10/17/19 11:49 HH (Rec: 10/17/19 12:00 HH [id number]) OP-PT Subjective Patient Comments Patient Comments My shoulder feels pretty good today but my shoulder popped while getting in and out of bed. Patient Reported Progress Improving PT-OP-F Manual Assessment Start: 09/02/19 16:18 Freq: Status: Active Protocol: Document 09/02/19 16:19 HH (Rec: 09/02/19 16:56 [email or web address]) Manual Assessments Soft Tissue Assessment Soft Tissue Mobility Assessment pt screamed out for pain with pressure at proximal bicep belly and long head tendon tenderness noted at R infraspinatus and R pecs. PT-OP-H Neuro Start: 09/02/19 16:18 Freq: Status: Active Protocol: Document 09/02/19 16:19 HH (Rec: 09/02/19 16:56 [email or web address]) Deep Tendon Reflex & Clonus Assessment Deep Tendon Reflex Bilateral Tricep Deep Tendon Reflex 1+ Diminished Bilateral Bicep Deep Tendon Reflex 2+ Normal Bilateral Brachioradialis Deep Tendon Reflex 2+ Normal PT-OP-J Posture/Palpation/Skin Start: 09/02/19 16:18 Freq: Status: Active Protocol: Document 09/02/19 16:19 HH (Rec: 09/02/19 16:56 [email or web address]) Posture Evaluation Position Sitting Head/C-Spine Posture Forward Head T-Spine Posture Increased Kyphosis Scapula Posture (R) Protracted,(R) Elevated,(R ) Tipped PT-OP-K Range of Motion Start: 09/02/19 16:18 Freq: Status: Active Protocol: Document 10/15/19 12:09 (Rec: 10/15/19 12:10 [id number]) Shoulder Goniometric Range of Motion Shoulder Right Passive Shoulder ROM WFL No Testing Position Supine Flexion 110 Abduction 95 External Rotation at 90 degrees 48 Abduction Right Active Shoulder ROM WFL No Testing Position Supine Flexion 88 Abduction 84 External Rotation at 90 degrees 46 Abduction PT-OP-L Special Tests Start: 09/02/19 16:18 Freq: Status: Active Protocol: Document 09/02/19 16:19 HH (Rec: 09/02/19 16:56 [email or web address]) Special Tests Shoulder Special Tests Speed's Biceps Comments unable to test d/t significant pain with both AROM/ PROM before he reached testing position Elevation Impingement Comments unable to test d/t significant pain with both AROM/ PROM before he reached testing position Drop Arm Rotator Cuff Comments unable to test d/t significant pain with both AROM/ PROM before he reached testing position PT-OP-M Strength Start: 09/02/19 16:18 Freq: Status: Active Protocol: Document 09/02/19 16:19 HH (Rec: 09/02/19 16:56 [email or web address]) Shoulder Strength Shoulder Manual Muscle Testing Left Flexion 4 Good Extension 4 Good Abduction (C5) 4 Good Adduction 4 Good External Rotation 4 Good Internal Rotation 4 Good Right Flexion 2- Poor- Abduction (C5) 2- Poor- Adduction 3+ Fair+ External Rotation 2+ Poor+ Internal Rotation 2+ Poor+ Elbow/Forearm Strength Elbow and Forearm Manual Muscle Testing Right Flexion (C6) 4 Good Extension (C7) 4 Good Comments inc in shoulder pain noted with resisted elbow flexion. Left Flexion (C6) 4 Good Extension (C7) 4 Good PT-OP-Q Treatments Start: 09/02/19 16:18 Freq: Status: Active Protocol: Document 10/17/19 11:49 HH (Rec: 10/17/19 12:00 [id number]) Therapeutic Exercises Supine Exercises shoulder ER Side bilateral Equipment Used PVC pipe Reps/Minutes 5mins Comments pain at end range scaption and flexion Equipment Used PVC pipe Reps/Minutes 4 mins Comments up to 100 degrees scap retraction Side bilateral Reps/Minutes 8 x2 Sidelying Exercises scapular retraction/depression Sidelying Exercise Name with PT tactile guidance first then provides resistance Side right Reps/Minutes 5 mins Comments less muscle guarding noted, improved passive mobility noted. Sitting Exercises OH oliva Sitting Exercise Name flexion and abd Side right Reps/Minutes 8 mins Comments flexion up to 80 degrees, abd up 60-70 degrees. Pt needed cues to use Lto A Manual Therapy Treatment Soft Tissue Mobilization Lats Mobilization Type Sustained Pressure,Trigger Point Release Intensity/Depth Moderate Body Position Supine Comments significant pain noted R pecs Body Location corocoid process region Mobilization Type Sustained Pressure,Trigger Point Release Intensity/Depth Moderate Body Position Supine Joint Mobilizations GHJ Joint R GHJ Direction post glide Grade II Body Position Supine Reps/Duration 8 mins Comments pt able to tolerate glides at 90 deg ABD followed by passive ER and IR with post glide. minimal pain noted. passive ER close to 70 degrees PT-OP-T Assessment and Plan Start: 09/02/19 16:18 Freq: Status: Active Protocol: Document 10/17/19 11:49 HH (Rec: 10/17/19 12:00 [id number]) Physical Therapy Assessment Goals pain Impairment Pt has R shoulder pain ~8/10 Short Term Goal (STG) 9 Pt has 6/10 pain in general. He started able to sleep on his R side, use B rails for stair climbing. 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 LTG Duration 8 weeks ROM Impairment pt shows significant loss of ROM Short Term Goal (STG) 10/14 Pt gained approx 15 degrees for flexion, abd and ER in supine (both active and passive) STG Duration 4 weeks Patient Carrier Goal (LTG) Pt will gain >25 degrees or more to improve his R shoulder ROM so he can reach behind his back to zurdo/ doff his clothes. LTG Duration 8 weeks Quickdash Impairment pt scores 59.01 on Quick Dash Short Term Goal (STG) Pt will score < 40 on quick dash STG Duration 4 weeks Care Home Goal (LTG) Pt will score <30 on quick dash to improve his R shoulder functional mobility and strength LTG Duration 8 weeks Assessment Summary Assessment Pt gloria session well and noticed he has more ER with less pain during AAROM with PVC. Improved passive scap mobility also noted. Cont educating pt to comply with HEP instead of solely relying on therapy appointment. Physical Therapy Plan Next Visit Focus/Plan Next Note Type Treatment Note Next Visit Plan review scap squeeze check post STM tolerance scap mobility start with bicep tendon, pecs and RTc manual therapy post glide at [facility] AAROM/ PROM with PVC/ stick, isometric against wall for HEP
--- NOTE | 2019-10-22 11:14 | PT.OTN ---
Current Diagnoses Incomplete rotator cuff tear or rupture of unspecified shoulder, not specified as traumatic (10/22/19) Physical Therapy Treatment Note PT-OP-A Visit Information Start: 09/02/19 16:18 Freq: Status: Active Protocol: Document 10/22/19 10:30 DCW (Rec: 10/22/19 11:14 DCW [id number]) Out-Patient Physical Therapy Visit Information Visit Information Visit Type Treatment Note Visit Start Time 10:30 Visit Stop Time 11:15 Total Visit Minutes 45 PT-OP-B Current Condition Start: 09/02/19 16:18 Freq: Status: Active Protocol: Document 09/02/19 16:19 HH (Rec: 09/02/19 16:56 HH [email or web address]) Current Condition History of Current Condition Onset Date late June Current Complaints R shoulder pain, unable to reach overhead, difficulty in zurdo/doff clothes History of Current Condition Pt is a 83yo male here for his new onset of ongoing R shoulder pain with range of motion. He stated he hurt his shoulder one day with a loud pop sound when he was extended his R shoulder while pulling his bedsheet to tidy his bed. His pain located at greater turberosity region who feels there is something clicking or snapping and R biceps area. He is currently unable to reach behind his back and lift his arm overhead , but able to reach further with AAROM from LUE. He denied tingling/ numbness and able to maintain good sleep by sleeping on his L side. Pt saw Dr. Rice and suspect possible a rotator cuff injury and bicep long head tendonopathy Prior Treatments and Tests N/A Treatment Goals Patient/Caregiver Goals 1. To be pain free for R shoulder ROM Current Functional Impairments (Reported) Functional Limitations- ADL's Needed L UE to assist for zurdo /doff clothes He primarily uses his L arm for most functional activities . PT-OP-C Subjective Start: 09/02/19 16:18 Freq: Status: Active Protocol: Document 10/22/19 10:30 DCW (Rec: 10/22/19 11:14 DCW [id number]) OP-PT Subjective Patient Comments Patient Comments Pt reports that he is marginally better. PT-OP-F Manual Assessment Start: 09/02/19 16:18 Freq: Status: Active Protocol: Document 09/02/19 16:19 (Rec: 09/02/19 16:56 [email or web address]) Manual Assessments Soft Tissue Assessment Soft Tissue Mobility Assessment pt screamed out for pain with pressure at proximal bicep belly and long head tendon tenderness noted at R infraspinatus and R pecs. PT-OP-H Neuro Start: 09/02/19 16:18 Freq: Status: Active Protocol: Document 09/02/19 16:19 HH (Rec: 09/02/19 16:56 [email or web address]) Deep Tendon Reflex & Clonus Assessment Deep Tendon Reflex Bilateral Tricep Deep Tendon Reflex 1+ Diminished Bilateral Bicep Deep Tendon Reflex 2+ Normal Bilateral Brachioradialis Deep Tendon Reflex 2+ Normal PT-OP-J Posture/Palpation/Skin Start: 09/02/19 16:18 Freq: Status: Active Protocol: Document 09/02/19 16:19 (Rec: 09/02/19 16:56 [email or web address]) Posture Evaluation Position Sitting Head/C-Spine Posture Forward Head T-Spine Posture Increased Kyphosis Scapula Posture (R) Protracted,(R) Elevated,(R ) Tipped PT-OP-K Range of Motion Start: 09/02/19 16:18 Freq: Status: Active Protocol: Document 10/15/19 12:09 (Rec: 10/15/19 12:10 [id number]) Shoulder Goniometric Range of Motion Shoulder Right Passive Shoulder ROM WFL No Testing Position Supine Flexion 110 Abduction 95 External Rotation at 90 degrees 48 Abduction Right Active Shoulder ROM WFL No Testing Position Supine Flexion 88 Abduction 84 External Rotation at 90 degrees 46 Abduction PT-OP-L Special Tests Start: 09/02/19 16:18 Freq: Status: Active Protocol: Document 09/02/19 16:19 HH (Rec: 09/02/19 16:56 [email or web address]) Special Tests Shoulder Special Tests Speed's Biceps Comments unable to test d/t significant pain with both AROM/ PROM before he reached testing position Elevation Impingement Comments unable to test d/t significant pain with both AROM/ PROM before he reached testing position Drop Arm Rotator Cuff Comments unable to test d/t significant pain with both AROM/ PROM before he reached testing position PT-OP-M Strength Start: 09/02/19 16:18 Freq: Status: Active Protocol: Document 09/02/19 16:19 HH (Rec: 09/02/19 16:56 HH [email or web address]) Shoulder Strength Shoulder Manual Muscle Testing Left Flexion 4 Good Extension 4 Good Abduction (C5) 4 Good Adduction 4 Good External Rotation 4 Good Internal Rotation 4 Good Right Flexion 2- Poor- Abduction (C5) 2- Poor- Adduction 3+ Fair+ External Rotation 2+ Poor+ Internal Rotation 2+ Poor+ Elbow/Forearm Strength Elbow and Forearm Manual Muscle Testing Right Flexion (C6) 4 Good Extension (C7) 4 Good Comments inc in shoulder pain noted with resisted elbow flexion. Left Flexion (C6) 4 Good Extension (C7) 4 Good PT-OP-Q Treatments Start: 09/02/19 16:18 Freq: Status: Active Protocol: Document 10/22/19 10:30 DCW (Rec: 10/22/19 11:14 DCW [id number]) Therapeutic Exercises Supine Exercises shoulder ER Side bilateral Equipment Used PVC pipe Reps/Minutes 5mins Comments pain at end range scaption and flexion Equipment Used PVC pipe Reps/Minutes 4 mins Comments up to 100 degrees Sitting Exercises OH oliva Sitting Exercise Name flexion and abd Side right Reps/Minutes 8 mins Comments flexion up to 80 degrees, abd up 60-70 degrees. Pt needed cues to use Lto A Manual Therapy Treatment Soft Tissue Mobilization Lats Mobilization Type Sustained Pressure,Trigger Point Release Intensity/Depth Moderate Body Position Supine Comments significant pain noted R pecs Body Location corocoid process region Mobilization Type Sustained Pressure,Trigger Point Release Intensity/Depth Moderate Body Position Supine RTC Body Location infraspinatus, Mobilization Type Sustained Pressure,Trigger Point Release Intensity/Depth Moderate Body Position Sidelying R biceps Body Location bicep belly, long head tendon Mobilization Type Sustained Pressure,Trigger Point Release Intensity/Depth Moderate Body Position Supine Joint Mobilizations GHJ Joint R GHJ Direction post glide Grade II Body Position Supine Reps/Duration 8 mins Comments pt able to tolerate glides at 90 deg ABD followed by passive ER and IR with post glide. minimal pain noted. passive ER close to 70 degrees PT-OP-T Assessment and Plan Start: 09/02/19 16:18 Freq: Status: Active Protocol: Document 10/22/19 10:30 DCW (Rec: 10/22/19 11:14 DCW [id number]) Physical Therapy Assessment Goals pain Impairment Pt has R shoulder pain ~8/10 Short Term Goal (STG) 10/14 Pt has 6/10 pain in general. He started able to sleep on his R side, use B rails for stair climbing. 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 LTG Duration 8 weeks ROM Impairment pt shows significant loss of ROM Short Term Goal (STG) 10/14 Pt gained approx 15 degrees for flexion, abd and ER in supine (both active and passive) STG Duration 4 weeks Chcf Goal (LTG) Pt will gain >25 degrees or more to improve his R shoulder ROM so he can reach behind his back to zurdo/ doff his clothes. LTG Duration 8 weeks Quickdash Impairment pt scores 59.01 on Quick Dash Short Term Goal (STG) Pt will score < 40 on quick dash STG Duration 4 weeks Chcf Goal (LTG) Pt will score <30 on quick dash to improve his R shoulder functional mobility and strength LTG Duration 8 weeks Assessment Summary Assessment Pt overall progress tends to vary widely from visit to visit, appears to be doing fairly well today, no big complaints. Tolerating STM better, but still pretty self- limiting secondary to pain/ discomfort. Physical Therapy Plan Frequency and Duration Frequency of Treatment 2x/Week Duration of Treatment 8 weeks Plan of Care Start Date 09/02/19 Plan of Care End Date 11/01/19 Next Visit Focus/Plan Next Note Type Treatment Note Next Visit Plan review scap squeeze check post STM tolerance scap mobility start with bicep tendon, pecs and RTc manual therapy post glide at [facility] AAROM/ PROM with PVC/ stick, isometric against wall for HEP
--- NOTE | 2019-10-24 11:15 | PT.OTN ---
Current Diagnoses Incomplete rotator cuff tear or rupture of unspecified shoulder, not specified as traumatic (10/24/19) Physical Therapy Treatment Note PT-OP-A Visit Information Start: 09/02/19 16:18 Freq: Status: Active Protocol: Document 10/24/19 10:30 DCW (Rec: 10/24/19 11:15 DCW [id number]) Out-Patient Physical Therapy Visit Information Visit Information Visit Type Treatment Note Visit Start Time 10:30 Visit Stop Time 11:15 Total Visit Minutes 45 Visit Number PT-OP-B Current Condition Start: 09/02/19 16:18 Freq: Status: Active Protocol: Document 09/02/19 16:19 HH (Rec: 09/02/19 16:56 HH [email or web address]) Current Condition History of Current Condition Onset Date late June Current Complaints R shoulder pain, unable to reach overhead, difficulty in zurdo/doff clothes History of Current Condition Pt is a 83yo male here for his new onset of ongoing R shoulder pain with range of motion. He stated he hurt his shoulder one day with a loud pop sound when he was extended his R shoulder while pulling his bedsheet to tidy his bed. His pain located at greater turberosity region who feels there is something clicking or snapping and R biceps area. He is currently unable to reach behind his back and lift his arm overhead , but able to reach further with AAROM from LUE. He denied tingling/ numbness and able to maintain good sleep by sleeping on his L side. Pt saw Dr. Rice and suspect possible a rotator cuff injury and bicep long head tendonopathy Prior Treatments and Tests N/A Treatment Goals Patient/Caregiver Goals 1. To be pain free for R shoulder ROM Current Functional Impairments (Reported) Functional Limitations- ADL's Needed L UE to assist for zurdo /doff clothes He primarily uses his L arm for most functional activities . PT-OP-C Subjective Start: 09/02/19 16:18 Freq: Status: Active Protocol: Document 10/24/19 10:30 DCW (Rec: 10/24/19 11:15 DCW [id number]) OP-PT Subjective Patient Comments Patient Comments Pt notes that he woke up with substantially more pain in his shoulder today, he doesn't remember doing anything that may have caused this. PT-OP-F Manual Assessment Start: 09/02/19 16:18 Freq: Status: Active Protocol: Document 09/02/19 16:19 HH (Rec: 09/02/19 16:56 [email or web address]) Manual Assessments Soft Tissue Assessment Soft Tissue Mobility Assessment pt screamed out for pain with pressure at proximal bicep belly and long head tendon tenderness noted at R infraspinatus and R pecs. PT-OP-H Neuro Start: 09/02/19 16:18 Freq: Status: Active Protocol: Document 09/02/19 16:19 HH (Rec: 09/02/19 16:56 [email or web address]) Deep Tendon Reflex & Clonus Assessment Deep Tendon Reflex Bilateral Tricep Deep Tendon Reflex 1+ Diminished Bilateral Bicep Deep Tendon Reflex 2+ Normal Bilateral Brachioradialis Deep Tendon Reflex 2+ Normal PT-OP-J Posture/Palpation/Skin Start: 09/02/19 16:18 Freq: Status: Active Protocol: Document 09/02/19 16:19 HH (Rec: 09/02/19 16:56 [email or web address]) Posture Evaluation Position Sitting Head/C-Spine Posture Forward Head T-Spine Posture Increased Kyphosis Scapula Posture (R) Protracted,(R) Elevated,(R ) Tipped PT-OP-K Range of Motion Start: 09/02/19 16:18 Freq: Status: Active Protocol: Document 10/15/19 12:09 HH (Rec: 10/15/19 12:10 HH [id number]) Shoulder Goniometric Range of Motion Shoulder Right Passive Shoulder ROM WFL No Testing Position Supine Flexion 110 Abduction 95 External Rotation at 90 degrees 48 Abduction Right Active Shoulder ROM WFL No Testing Position Supine Flexion 88 Abduction 84 External Rotation at 90 degrees 46 Abduction PT-OP-L Special Tests Start: 09/02/19 16:18 Freq: Status: Active Protocol: Document 09/02/19 16:19 HH (Rec: 09/02/19 16:56 [email or web address]) Special Tests Shoulder Special Tests Speed's Biceps Comments unable to test d/t significant pain with both AROM/ PROM before he reached testing position Elevation Impingement Comments unable to test d/t significant pain with both AROM/ PROM before he reached testing position Drop Arm Rotator Cuff Comments unable to test d/t significant pain with both AROM/ PROM before he reached testing position PT-OP-M Strength Start: 09/02/19 16:18 Freq: Status: Active Protocol: Document 09/02/19 16:19 HH (Rec: 09/02/19 16:56 HH [email or web address]) Shoulder Strength Shoulder Manual Muscle Testing Left Flexion 4 Good Extension 4 Good Abduction (C5) 4 Good Adduction 4 Good External Rotation 4 Good Internal Rotation 4 Good Right Flexion 2- Poor- Abduction (C5) 2- Poor- Adduction 3+ Fair+ External Rotation 2+ Poor+ Internal Rotation 2+ Poor+ Elbow/Forearm Strength Elbow and Forearm Manual Muscle Testing Right Flexion (C6) 4 Good Extension (C7) 4 Good Comments inc in shoulder pain noted with resisted elbow flexion. Left Flexion (C6) 4 Good Extension (C7) 4 Good PT-OP-Q Treatments Start: 09/02/19 16:18 Freq: Status: Active Protocol: Document 10/24/19 10:30 DCW (Rec: 10/24/19 11:15 DCW [id number]) Therapeutic Exercises Supine Exercises scaption and flexion Equipment Used PVC pipe Reps/Minutes 4 mins Comments up to 100 degrees Sitting Exercises OH oliva Sitting Exercise Name flexion and abd Side right Reps/Minutes 8 mins Comments flexion up to 80 degrees, abd up 60-70 degrees. Pt needed cues to use Lto A Manual Therapy Treatment Soft Tissue Mobilization Lats Mobilization Type Sustained Pressure,Trigger Point Release Intensity/Depth Moderate Body Position Supine Comments significant pain noted R pecs Body Location corocoid process region Mobilization Type Sustained Pressure,Trigger Point Release Intensity/Depth Moderate Body Position Supine RTC Body Location infraspinatus, Mobilization Type Sustained Pressure,Trigger Point Release Intensity/Depth Moderate Body Position Sidelying R biceps Body Location bicep belly, long head tendon Mobilization Type Sustained Pressure,Trigger Point Release Intensity/Depth Moderate Body Position Supine Joint Mobilizations GHJ Joint R GHJ Direction post glide Grade II Body Position Supine Reps/Duration 8 mins Comments pt able to tolerate glides at 90 deg ABD followed by passive ER and IR with post glide. minimal pain noted. passive ER close to 70 degrees PT-OP-T Assessment and Plan Start: 09/02/19 16:18 Freq: Status: Active Protocol: Document 10/24/19 10:30 DCW (Rec: 10/24/19 11:15 DCW [id number]) Physical Therapy Assessment Goals pain Impairment Pt has R shoulder pain ~8/10 Short Term Goal (STG) 10/14 Pt has 6/10 pain in general. He started able to sleep on his R side, use B rails for stair climbing. 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 LTG Duration 8 weeks ROM Impairment pt shows significant loss of ROM Short Term Goal (STG) 10/14 Pt gained approx 15 degrees for flexion, abd and ER in supine (both active and passive) STG Duration 4 weeks Electronic Field Service Engineer Goal (LTG) Pt will gain >25 degrees or more to improve his R shoulder ROM so he can reach behind his back to zurdo/ doff his clothes. LTG Duration 8 weeks Quickdash Impairment pt scores 59.01 on Quick Dash Short Term Goal (STG) Pt will score < 40 on quick dash STG Duration 4 weeks Electronic Field Service Engineer Goal (LTG) Pt will score <30 on quick dash to improve his R shoulder functional mobility and strength LTG Duration 8 weeks Assessment Summary Assessment Still unclear how much progress pt is making week to week, some days he claims he is doing much better, other days he says he has not made any progress, very difficult to track subject complaints. Pt fairly self-limiting with tolerating ROM or STM. Physical Therapy Plan Frequency and Duration Frequency of Treatment 2x/Week Duration of Treatment 8 weeks Plan of Care Start Date 09/02/19 Plan of Care End Date 11/01/19 Next Visit Focus/Plan Next Note Type Treatment Note Next Visit Plan review scap squeeze check post STM tolerance scap mobility start with bicep tendon, pecs and RTc manual therapy post glide at [facility] AAROM/ PROM with PVC/ stick, isometric against wall for HEP
--- NOTE | 2019-10-28 10:59 | PT.OTN ---
Current Diagnoses Incomplete rotator cuff tear or rupture of unspecified shoulder, not specified as traumatic (10/28/19) Physical Therapy Treatment Note PT-OP-A Visit Information Start: 09/02/19 16:18 Freq: Status: Active Protocol: Document 10/28/19 09:46 SAK (Rec: 10/28/19 10:47 SAK [id number]) Out-Patient Physical Therapy Visit Information Visit Information Visit Type Treatment Note Visit Start Time 10:30 Visit Stop Time 11:30 Total Visit Minutes 60 Visit Number PT-OP-B Current Condition Start: 09/02/19 16:18 Freq: Status: Active Protocol: Document 09/02/19 16:19 HH (Rec: 09/02/19 16:56 HH [email or web address]) Current Condition History of Current Condition Onset Date late June Current Complaints R shoulder pain, unable to reach overhead, difficulty in zurdo/doff clothes History of Current Condition Pt is a 83yo male here for his new onset of ongoing R shoulder pain with range of motion. He stated he hurt his shoulder one day with a loud pop sound when he was extended his R shoulder while pulling his bedsheet to tidy his bed. His pain located at greater turberosity region who feels there is something clicking or snapping and R biceps area. He is currently unable to reach behind his back and lift his arm overhead , but able to reach further with AAROM from LUE. He denied tingling/ numbness and able to maintain good sleep by sleeping on his L side. Pt saw Dr. Rice and suspect possible a rotator cuff injury and bicep long head tendonopathy Prior Treatments and Tests N/A Treatment Goals Patient/Caregiver Goals 1. To be pain free for R shoulder ROM Current Functional Impairments (Reported) Functional Limitations- ADL's Needed L UE to assist for zurdo /doff clothes He primarily uses his L arm for most functional activities . PT-OP-C Subjective Start: 09/02/19 16:18 Freq: Status: Active Protocol: Document 10/28/19 09:46 SAK (Rec: 10/28/19 10:47 SAK [id number]) OP-PT Subjective Patient Comments Patient Comments Increased pain after last session. Feels oliva most helpful; got one for home use. Hasn't tried heat or ice PT-OP-F Manual Assessment Start: 09/02/19 16:18 Freq: Status: Active Protocol: Document 09/02/19 16:19 HH (Rec: 09/02/19 16:56 [email or web address]) Manual Assessments Soft Tissue Assessment Soft Tissue Mobility Assessment pt screamed out for pain with pressure at proximal bicep belly and long head tendon tenderness noted at R infraspinatus and R pecs. PT-OP-H Neuro Start: 09/02/19 16:18 Freq: Status: Active Protocol: Document 09/02/19 16:19 HH (Rec: 09/02/19 16:56 [email or web address]) Deep Tendon Reflex & Clonus Assessment Deep Tendon Reflex Bilateral Tricep Deep Tendon Reflex 1+ Diminished Bilateral Bicep Deep Tendon Reflex 2+ Normal Bilateral Brachioradialis Deep Tendon Reflex 2+ Normal PT-OP-J Posture/Palpation/Skin Start: 09/02/19 16:18 Freq: Status: Active Protocol: Document 09/02/19 16:19 HH (Rec: 09/02/19 16:56 [email or web address]) Posture Evaluation Position Sitting Head/C-Spine Posture Forward Head T-Spine Posture Increased Kyphosis Scapula Posture (R) Protracted,(R) Elevated,(R ) Tipped PT-OP-K Range of Motion Start: 09/02/19 16:18 Freq: Status: Active Protocol: Document 10/15/19 12:09 HH (Rec: 10/15/19 12:10 [id number]) Shoulder Goniometric Range of Motion Shoulder Right Passive Shoulder ROM WFL No Testing Position Supine Flexion 110 Abduction 95 External Rotation at 90 degrees 48 Abduction Right Active Shoulder ROM WFL No Testing Position Supine Flexion 88 Abduction 84 External Rotation at 90 degrees 46 Abduction PT-OP-L Special Tests Start: 09/02/19 16:18 Freq: Status: Active Protocol: Document 09/02/19 16:19 HH (Rec: 09/02/19 16:56 [email or web address]) Special Tests Shoulder Special Tests Speed's Biceps Comments unable to test d/t significant pain with both AROM/ PROM before he reached testing position Elevation Impingement Comments unable to test d/t significant pain with both AROM/ PROM before he reached testing position Drop Arm Rotator Cuff Comments unable to test d/t significant pain with both AROM/ PROM before he reached testing position PT-OP-M Strength Start: 09/02/19 16:18 Freq: Status: Active Protocol: Document 09/02/19 16:19 HH (Rec: 09/02/19 16:56 [email or web address]) Shoulder Strength Shoulder Manual Muscle Testing Left Flexion 4 Good Extension 4 Good Abduction (C5) 4 Good Adduction 4 Good External Rotation 4 Good Internal Rotation 4 Good Right Flexion 2- Poor- Abduction (C5) 2- Poor- Adduction 3+ Fair+ External Rotation 2+ Poor+ Internal Rotation 2+ Poor+ Elbow/Forearm Strength Elbow and Forearm Manual Muscle Testing Right Flexion (C6) 4 Good Extension (C7) 4 Good Comments inc in shoulder pain noted with resisted elbow flexion. Left Flexion (C6) 4 Good Extension (C7) 4 Good PT-OP-Q Treatments Start: 09/02/19 16:18 Freq: Status: Active Protocol: Document 10/28/19 09:46 SAK (Rec: 10/28/19 10:47 SAK [id number]) Therapeutic Exercises Supine Exercises pec stretch Reps/Minutes 2 min Comments manual Sidelying Exercises shoulder flex Reps/Minutes 10x Comments AAROM with PT assist for scapular rotation and sh flex shoulder ER Reps/Minutes 10x scapular retraction/depression Sidelying Exercise Name with PT tactile guidance first then PT provides resistance Side right Reps/Minutes 5 mins Sitting Exercises Shoulder external rotation Reps/Minutes 10x OH oliva Sitting Exercise Name flexion and abd Side right Reps/Minutes 8 mins Comments flexion up to 80 degrees, abd up 60-70 degrees. Pt needed cues to use Lto A scapular retraction Sitting Exercise Name scapular retraction Side bilateral Reps/Minutes 15 reps Comments max cues for engagement and squeeze 1 Sitting Exercise Name Upper Trap stretch Comments hand holding chair Standing Exercises pendulum Standing Exercise Name fwd/bck, side Reps/Minutes 10x ea shoulder extension Reps/Minutes 5x Manual Therapy Treatment Joint Mobilizations Scapulothoracic Joint R Scapulothoracic Direction lateral, inferior Grade III Body Position Supine PT-OP-R Modalities Start: 09/02/19 16:18 Freq: Status: Active Protocol: Document 10/28/19 09:46 SAK (Rec: 10/28/19 10:59 SAK [id number]) Hot Pack/Cold Pack Treatment Hot Pack Location right shouldre Patient Position Hooklying Treatment Duration (minutes) 15 Patient Tolerance Good PT-OP-T Assessment and Plan Start: 09/02/19 16:18 Freq: Status: Active Protocol: Document 10/28/19 09:46 [facility] (Rec: 10/28/19 10:47 [facility] [id number]) Physical Therapy Assessment Goals pain Impairment Pt has R shoulder pain ~8/10 Short Term Goal (STG) 10/14 Pt has 6/10 pain in general. He started able to sleep on his R side, use B rails for stair climbing. 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 LTG Duration 8 weeks ROM Impairment pt shows significant loss of ROM Short Term Goal (STG) 10/14 Pt gained approx 15 degrees for flexion, abd and ER in supine (both active and passive) STG Duration 4 weeks [facility] Goal (LTG) Pt will gain >25 degrees or more to improve his R shoulder ROM so he can reach behind his back to zurdo/ doff his clothes. LTG Duration 8 weeks Quickdash Impairment pt scores 59.01 on Quick Dash Short Term Goal (STG) Pt will score < 40 on quick dash STG Duration 4 weeks Hydroelectric Station Chief Goal (LTG) Pt will score <30 on quick dash to improve his R shoulder functional mobility and strength LTG Duration 8 weeks Assessment Summary Assessment Patient has obtained pulleys for home use. Needs moderate cues for scapular stabilization. Improved shoulder flex in sidelying with assist. Trial moist heat to end session today. Physical Therapy Plan Frequency and Duration Frequency of Treatment 2x/Week Duration of Treatment 8 weeks Plan of Care Start Date 09/02/19 Plan of Care End Date 11/01/19 Next Visit Focus/Plan Next Note Type Treatment Note Next Visit Plan assess response to last treatment. Progress ther ex as tolerated for improved right shoulder ROM, strength, stability to improve patient function.
--- NOTE | 2019-10-31 10:21 | PT.OPPN ---
Current Diagnoses Incomplete rotator cuff tear or rupture of unspecified shoulder, not specified as traumatic (10/31/19) Physical Therapy Progress Note PT-OP-A Visit Information Start: 09/02/19 16:18 Freq: Status: Active Protocol: Document 10/31/19 09:48 HH (Rec: 10/31/19 10:21 [id number]) Out-Patient Physical Therapy Visit Information Visit Information Visit Type Progress Note Visit Start Time 10:20 PT-OP-B Current Condition Start: 09/02/19 16:18 Freq: Status: Active Protocol: Document 09/02/19 16:19 HH (Rec: 09/02/19 16:56 HH [email or web address]) Current Condition History of Current Condition Onset Date late June Current Complaints R shoulder pain, unable to reach overhead, difficulty in zurdo/doff clothes History of Current Condition Pt is a 83yo male here for his new onset of ongoing R shoulder pain with range of motion. He stated he hurt his shoulder one day with a loud pop sound when he was extended his R shoulder while pulling his bedsheet to tidy his bed. His pain located at greater turberosity region who feels there is something clicking or snapping and R biceps area. He is currently unable to reach behind his back and lift his arm overhead , but able to reach further with AAROM from LUE. He denied tingling/ numbness and able to maintain good sleep by sleeping on his L side. Pt saw Dr. Rice and suspect possible a rotator cuff injury and bicep long head tendonopathy Prior Treatments and Tests N/A Treatment Goals Patient/Caregiver Goals 1. To be pain free for R shoulder ROM Current Functional Impairments (Reported) Functional Limitations- ADL's Needed L UE to assist for zurdo /doff clothes He primarily uses his L arm for most functional activities . PT-OP-C Subjective Start: 09/02/19 16:18 Freq: Status: Active Protocol: Document 10/31/19 09:48 HH (Rec: 10/31/19 10:21 [id number]) OP-PT Subjective Patient Comments Patient Comments Its hurting today but i know that i am able to move slightly more but not much. I havent done much with my exercises. Patient Reported Progress Same PT-OP-F Manual Assessment Start: 09/02/19 16:18 Freq: Status: Active Protocol: Document 09/02/19 16:19 HH (Rec: 09/02/19 16:56 [email or web address]) Manual Assessments Soft Tissue Assessment Soft Tissue Mobility Assessment pt screamed out for pain with pressure at proximal bicep belly and long head tendon tenderness noted at R infraspinatus and R pecs. PT-OP-H Neuro Start: 09/02/19 16:18 Freq: Status: Active Protocol: Document 09/02/19 16:19 HH (Rec: 09/02/19 16:56 [email or web address]) Deep Tendon Reflex & Clonus Assessment Deep Tendon Reflex Bilateral Tricep Deep Tendon Reflex 1+ Diminished Bilateral Bicep Deep Tendon Reflex 2+ Normal Bilateral Brachioradialis Deep Tendon Reflex 2+ Normal PT-OP-J Posture/Palpation/Skin Start: 09/02/19 16:18 Freq: Status: Active Protocol: Document 09/02/19 16:19 HH (Rec: 09/02/19 16:56 [email or web address]) Posture Evaluation Position Sitting Head/C-Spine Posture Forward Head T-Spine Posture Increased Kyphosis Scapula Posture (R) Protracted,(R) Elevated,(R ) Tipped PT-OP-K Range of Motion Start: 09/02/19 16:18 Freq: Status: Active Protocol: Document 10/31/19 09:48 HH (Rec: 10/31/19 10:21 [id number]) Shoulder Goniometric Range of Motion Shoulder Measured in Degrees Right Passive Testing Position Supine Extension 82 Abduction 85 External Rotation at 90 degrees 33 Abduction Right Active Testing Position Supine Flexion 40 Extension 56 PT-OP-L Special Tests Start: 09/02/19 16:18 Freq: Status: Active Protocol: Document 09/02/19 16:19 HH (Rec: 09/02/19 16:56 [email or web address]) Special Tests Shoulder Special Tests Speed's Biceps Comments unable to test d/t significant pain with both AROM/ PROM before he reached testing position Elevation Impingement Comments unable to test d/t significant pain with both AROM/ PROM before he reached testing position Drop Arm Rotator Cuff Comments unable to test d/t significant pain with both AROM/ PROM before he reached testing position PT-OP-M Strength Start: 09/02/19 16:18 Freq: Status: Active Protocol: Document 09/02/19 16:19 HH (Rec: 09/02/19 16:56 [email or web address]) Shoulder Strength Shoulder Manual Muscle Testing Left Flexion 4 Good Extension 4 Good Abduction (C5) 4 Good Adduction 4 Good External Rotation 4 Good Internal Rotation 4 Good Right Flexion 2- Poor- Abduction (C5) 2- Poor- Adduction 3+ Fair+ External Rotation 2+ Poor+ Internal Rotation 2+ Poor+ Elbow/Forearm Strength Elbow and Forearm Manual Muscle Testing Right Flexion (C6) 4 Good Extension (C7) 4 Good Comments inc in shoulder pain noted with resisted elbow flexion. Left Flexion (C6) 4 Good Extension (C7) 4 Good PT-OP-T Assessment and Plan Start: 09/02/19 16:18 Freq: Status: Active Protocol: Document 10/31/19 09:48 HH (Rec: 10/31/19 10:21 [id number]) Physical Therapy Assessment Goals pain Impairment Pt has R shoulder pain ~8/10 Short Term Goal (STG) 10/14 Pt has 6/10 pain in general. He started able to sleep on his R side, use B rails for stair climbing. Seismograph Recorder Goal (LTG) 10/30 pt shows no improvements in muscle strength today. LTG Duration 8 weeks ROM Impairment pt shows significant loss of ROM Short Term Goal (STG) 10/14 Pt gained approx 15 degrees for flexion, abd and ER in supine (both active and passive) STG Duration 4 weeks [facility] Goal (LTG) 10/30 did not meet goal pt shows no improvements in ROM today compared to IE. LTG Duration 8 weeks Quickdash Impairment pt scores 59.01 on Quick Dash Short Term Goal (STG) Pt will score < 40 on quick dash STG Duration 4 weeks Seismograph Recorder Goal (LTG) pt scores 61 on quickdash today without improvements compared to IE. LTG Duration 8 weeks Progress Towards Goals Progress Towards Goals Slow Progress due to Activity Tolerance,Slow Progress due to Medical Issues,Slow Progress due to Noncompliance,Slow Progress - Other Assessment Summary Assessment This is pt's 15th visit today and has been treated by multiple therapists but there' s not significant improvements with ROM and strength since initial evaluation. Pt also noted its minimally detectable and he is still unable to participate most functional tasks. Pt also stated i have very low pain threshold. During assessment, pt cont to have significant muscle guarding upon active / passive movements which makes treatment difficult. Recommended pt to consult his PCP Dr. Rice for further ortho eval or pain management such as cortisone shot with PT , etc. Will contact pt via phone for progress. Physical Therapy Plan Hold Physical Therapy Reason For Hold This is pt's 15th visit today and has been treated by multiple therapists but there' s not significant improvements with ROM and strength since initial evaluation. Pt also noted its minimally detectable and he is still unable to participate most functional tasks. Pt also stated i have very low pain threshold. During assessment, pt cont to have significant muscle guarding upon active / passive movements which makes treatment difficult. Recommended pt to consult his PCP Dr. Rice for further ortho eval or pain management such as cortisone shot with PT , etc. Will contact pt via phone for progress.
--- NOTE | 2020-08-03 08:53 | PT.OPDS ---
Current Diagnoses Incomplete rotator cuff tear or rupture of unspecified shoulder, not specified as traumatic (10/31/19) Visit Care Team Role Provider Type Ryan Rice DO Attending Provider Physician Primary Care Provider Referring Provider Specialty: [facility] Address: [address] [place] [address], [facility] Email: [email or web address] Room Visit Number Visit Number Discharge Summary PT-OP-T Assessment and Plan Start: 09/02/19 16:18 Freq: Status: Active Protocol: Document 08/03/20 08:52 HH (Rec: 08/03/20 08:53 HH [id number]) Physical Therapy Plan Discharge Physical Therapy Discharge Reasons Plateau in Progress Discharge Comments per last visit note, pt has been shown any improvements with his shoulder pain and ROM . DC from PT
== END 2020-08-05 08:33 | disposition home or self-care (01) ==
LOC: PHYS 09:45
PROVIDERS: PCP Family Medicine; Referring Provider Family Medicine; Visit Provider Family Medicine
DX: M75.110 Incomplete rotator cuff tear or rupture of unspecified shoulder, not specified as traumatic (principal)
CPT/HCPCS: 97010; 97110; 97140; 97163

== ENCOUNTER → 2019-11-06 14:46 | Outpatient (CLI) | payer MEDICARE, SELFPAY ==
[2017-11-29 11:41] VITALS: BMI 31.1
--- NOTE | 2019-11-06 14:48 | DI.RAD.S_ITS ---
PROCEDURE: XR SHOULDER RT MIN 2V INDICATIONS: pain; incomplete tear of right rotator cuff TECHNIQUE: 3 views of the shoulder were acquired. COMPARISON: [facility], , SHOULDER MINIMUM 2VIEW RIGHT, 08/14/2007, 10:49. FINDINGS: Bones: No fractures or dislocations. No suspicious bony lesions. Visualized ribs appear intact. Moderate to severe acromioclavicular degenerative narrowing, relatively stable compared to prior exam. Soft tissues: No suspicious soft tissue calcifications. IMPRESSION: Acromioclavicular degenerative narrowing. If concern persists for rotator cuff injury, MRI is recommended. Dictated by: Kindra Quiñones M.D. on 11/06/2019 at 16:28 Approved by: Kindra Quiñones M.D. on 11/06/2019 at 16:28
== END ==
PROVIDERS: PCP Family Medicine; Referring Provider Family Medicine; Visit Provider Family Medicine
DX: M75.111 Incomplete rotator cuff tear or rupture of right shoulder, not specified as traumatic (principal)
CPT/HCPCS: 73030

== ENCOUNTER → 2020-07-23 09:51 | Outpatient (CLI) | payer MEDICARE, SELFPAY ==
[2020-05-08 10:42] VITALS: BMI 31.1
[2020-07-23 10:37] LABS: COVID19 -Nasal RAPID Negative (Negative)
== END ==
PROVIDERS: PCP Family Medicine; Visit Provider Specialist
DX: Z20.822 Contact with and (suspected) exposure to COVID-19 (principal)
CPT/HCPCS: 87635; C9803

== ENCOUNTER 2020-07-24 07:19 | Day surgery (SDC) | payer MEDICARE, SELFPAY ==
[2020-05-08 10:42] VITALS: BMI 31.1
--- NOTE | 2020-07-24 | PATH_ITS ---
[facility] Accession Number: [id number] . 01 Material submitted: . PART A: colon - ASCENDING COLON NEAR CECUM PART B: colon - POLYP AT 25CM . 01 Clinical history: . SCREENING COLONOSCOPY . 02 Diagnosis: A. Ascending Colon Near Cecum, Biopsy: Tubulovillous adenoma, fragmented. Negative for high-grade dysplasia or malignancy. . B. Colon Polyp at 25 cm, Biopsy: Hyperplastic polyp. MRV 07/29/2020 1124 Local . 02 Electronically signed: . Mario Schroeder MD, PhD, Pathologist NPI- [id number] . 01 Gross description: . Part A: ASCENDING COLON NEAR CECUM: Received in formalin are multiple fragment(s) of dodd, soft tissue measuring 0.1 x 0.1 x 0.1 cm to 0.3 x 0.3 x 0.2 cm submitted entirely in 1 cassette(s) Part B: POLYP AT 25CM: Received in formalin is 1 fragment(s) of dodd, soft tissue measuring 0.3 x 0.2 x 0.2 cm submitted entirely in 1 cassette(s) /SANJIV 07/27/2020 1855 Local . 02 Pathologist provided ICD-10: D12.2, K63.5 . 02 CPT . 361747, [id number] Performed at: 01 [facility] [address], [place], [place] [id number] MD Doug Johnson MD Phone: [phone] Performed at: 02 [facility] [address] [place], [place] [id number] MD Fela Fleming MD Phone: [phone]
[2020-07-24] MEDS: LACTATED RINGERS 1,000 ML 200 ML IV (07:36)
[2020-07-24 07:45] VITALS: BP 180/81; PULSE 60; RESP 15; TEMP 36.3; O2SAT 99; BMI 30.7
--- NOTE | 2020-07-24 08:34 | PM.HP.1 ---
History of Present Illness History of Present Illness Date Patient Seen: 07/24/20 Time Patient Seen: 08:34 Chief complaint: SCREENING COLONOSCOPY Narrative: Patient is a gentleman who is post colon resection. He has a year overdue for his colonoscopy. He had colon cancer. He skipped a year because of COVID. 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 Obese Pacemaker Partial tear of right rotator cuff Peripheral neuropathy Prediabetes Retention of urine Retinal artery occlusion Right shoulder pain Sensory ataxia Tear meniscus knee V-tach Vertigo Surgical History History of colonoscopy with polypectomy History of prostate surgery History of tonsillectomy History of umbilical hernia repair Implantable cardioverter-defibrillator (ICD) in situ Presence of cardiac pacemaker S/P partial colectomy Family & Social History Family History Father [place] (myocardial infarction) Social History: household members spouse Tobacco & Substance use: Smoking Status Former smoker alcohol intake current alcohol intake frequency 0-2 drinks per day Substance Use Type former substance user Meds Home Medications and Allergies Home Medications Medication Instructions Recorded Confirmed Type losartan-hydrochlorothiazide 1 tab PO DAILY 11/20/17 07/24/20 History Disabled Parking Permit 1 ea MISCELLANEOUS DIRECTED 11/24/17 03/18/20 History cinnamon bark 500 mg capsule 500 mg PO BID #60 cap 12/14/17 07/24/20 Rx amlodipine 2.5 mg tablet 2.5 mg PO DAILY #30 tab 01/29/18 07/24/20 Rx multivitamin-iron 9 mg-folic acid 1 tab PO QDAY #90 tab 02/16/18 07/24/20 Rx 400 mcg-calcium and minerals tablet carvedilol 12.5 mg tablet 12.5 mg PO BID 08/15/18 07/24/20 History sertraline 50 mg tablet 50 mg PO DAILY #30 tab 10/01/18 07/24/20 Rx acetaminophen 325 mg tablet 650 mg PO Q6HR PRN #60 tab 03/04/19 07/24/20 Rx potassium chloride 10 mEq 10 meq PO QAM #90 tab 12/02/19 07/24/20 Rx tablet,extended release(part/cryst) tamsulosin 0.4 mg capsule 0.4 mg PO DAILY #90 cap 12/16/19 07/24/20 Rx atorvastatin 20 mg tablet 20 mg PO BEDTIME #90 tab 07/20/20 07/24/20 Rx Allergies Allergy/AdvReac Type Severity Reaction Status Date / Time No Known Drug Allergies Allergy Verified 07/24/20 07:42 Review of Systems Review of Systems ROS: Yes All systems reviewed with the patient and are negative except as otherwise documented Exam Vital Signs (past 8 hours): - 07/24/20 07:45 Temperature 97.4 F L Pulse Rate 60 Respiratory Rate 15 Blood Pressure 180/81 H Pulse Oximetry 99 Oxygen Delivery Method Room Air Narrative Exam Narrative: Pleasant cooperative patient no apparent distress. Lungs are clear to auscultation. No rales or rhonchi. Heart regular rate and rhythm no murmur gallop. Abdomen is soft nontender without mass. No obvious hernias. Patient is alert and oriented x3. Pacemaker felt left infraclavicular chest.
--- NOTE | 2020-07-24 08:40 | PM.PREOP ---
Pre-operative Note COVID-19 COVID-19 status: Negative Result date/Date tested (Pos, Neg/Pending): 07/23/20 Interval Note History & Physical reviewed/Exam performed by Physician: Yes Changes to H&P: No ASA Class (for procedural sedation): III
[2020-07-24] MEDS: MIDAZOLAM 5 MG/5 ML VIAL IV (09:07)
[2020-07-24] MEDS: fentaNYL 250 MCG/5 ML INJ IV (09:07)
[2020-07-24 09:25] VITALS: BP 154/64; PULSE 60; RESP 12; TEMP 36.3; O2SAT 97
[2020-07-24 09:30] VITALS: BP 153/63; PULSE 67; RESP 16; O2SAT 98
--- NOTE | 2020-07-24 09:32 | PM.OP.ENDO ---
Operative Date/Time/Diagnoses Date of procedure: 07/24/20 Time of procedure: 09:33 Post-op diagnosis: same (Polyps. Diverticulosis.) Procedure & Clinicians Study performed: Colonoscopy with hot biopsy Same procedure as scheduled: Yes Indications: Screening in high risk patient who has a history of colon cancer Surgeon: Sami Burgess Procedure Notes SCOAP/Timeout: Performed Procedure in detail: The patient was placed in the left lateral decubitus position and underwent IV sedation directed by the surgeon consisting of fentanyl and Versed. Digital exam was unremarkable. I could only feel small portion of his prostate.. The scope was inserted and advanced through the rectum into the remaining sigmoid, descending, transverse, and ascending colon. Anastomosis was noted at 80 cm from the anal verge. Occasional sigmoid diverticulosis seen. The cecum was reached identified by the ileocecal valve and the appendiceal opening. Just distal to the ileocecal valve there were 2 lesions. One was biopsied and with the snare cauterized. I attempted to snare the other larger lesion but it was soft on the snare just kept slicing over it or through it and I could not get good purchase. Therefore used hot biopsy forceps and repeatedly biopsied it until it appeared to be completely removed. Cautery was used as well. The scope was gradually brought out. No other Polyps were found until I reached 25 cm where there was a small lesion which I biopsied and removed.. The scope ultimately was retroflexed in the rectum. The appearance was normal. The scope was removed and the patient tolerated the procedure well. Prep was adequate. Scope withdrawal time: 7 minutes(31 total) Sedation minutes: 37 Findings: diverticulosis and polyp Specimen(s): other (Polyps near ileocecal valve in the ascending colon) Complications: none Post-procedure Recommendations: Colonscopy in 1 year Follow up: as needed Disposition: PACU
[2020-07-24 09:40] VITALS: BP 162/69; PULSE 66; RESP 14; O2SAT 97
[2020-07-24 09:50] VITALS: BP 166/81; PULSE 60; RESP 16; TEMP 36.2; O2SAT 98
== END 2020-07-24 10:04 | disposition home or self-care (01) ==
PROVIDERS: PCP Family Medicine; Referring Provider Specialist; Visit Provider Specialist
PROC: 0DJD8ZZ Inspection of Lower Intestinal Tract, Via Natural or Artificial Opening Endoscopic (ICD-10-PCS; CPT 45378; principal; 2020-07-24 08:30)
DX: Z12.11 Encounter for screening for malignant neoplasm of colon (principal); Z85.038 Personal history of other malignant neoplasm of large intestine; Z86.010 Personal history of colon polyps; Z95.0 Presence of cardiac pacemaker; I10 Essential (primary) hypertension; E78.5 Hyperlipidemia, unspecified; E11.9 Type 2 diabetes mellitus without complications; K57.30 Diverticulosis of large intestine without perforation or abscess without bleeding; D12.2 Benign neoplasm of ascending colon
CPT/HCPCS: 45384; 99152; 99153; J2250; J3010

== ENCOUNTER 2020-07-29 09:14 | Day surgery (SDC) | payer MEDICARE, SELFPAY ==
[2020-05-08 10:42] VITALS: BMI 31.1
--- NOTE | 2020-07-28 17:53 | PM.PREOP ---
Pre-operative Note COVID-19 COVID-19 status: Negative Interval Note History & Physical reviewed/Exam performed by Physician: Yes Changes to H&P: No
--- NOTE | 2020-07-29 08:20 | PM.OP.1 ---
Operative Date/Time/Diagnoses Date of procedure: 07/29/20 Time of procedure: 11:45 Procedure & Clinicians Procedure: Preoperative diagnoses: 1. Mature Nuclear sclerotic cataract 2. Astigmatism which is to be corrected with a toric intraocular lens implant. 3. Defibrillator and pacemaker. 4. 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 5. 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 6. Heart block 7. Polyneuropathy. 8. Vertigo 9. Amblyopia Postoperative diagnoses: 1. Complex cataract removal with phacoemulsification with use of capsular dye, MiLoop and toric posterior chamber intraocular lens implant placed. Procedure: Complex Phacoemulsification with toric posterior chamber toric intraocular lens implant. Surgeon: Leanne Kapadia MD Complications: None Specimen: None Implant: [id number] [place] 180 Blood loss: None Anesthesia: Retrobulbar with monitored standby Description of procedure: Patient presents with a complaint of decreased vision due to cataract which is affecting activities of daily living both distance and near. He has had significant previous stroke and global amnesia and is now recovering. He says his visual limitation is affecting his quality of life both at distance and near and that he would like surgery even though this eye has a history of mild amblyopia. He has multiple cardiac diagnoses including heart block and has a defibrillator and pacemaker. He also takes tamsulosin and is likely to have floppy iris syndrome. The patient wants surgery to improve vision and astigmatism. He has tested COVID 19 virus negative the day of the procedure. The patient was taken to the operating room and proparacaine drops placed. Indelible ink benavidez were placed at the 90 and 180 degree meridian. The patient was placed on the operating room table and given IV sedation. A retrobulbar block insert consisting of 6 cc of 2% xylocaine without epinephrine mixed half and half with 0.5% Marcaine with 1 cc of hyaluronidase added is placed between the medial and lateral 1/3 of the inferior orbital rim. The eye is manually massaged for 30 sec, prepped using Betadine solution, and draped in the usual sterile fashion. Temporal approach was made, a 1 mm side-port incision was made 90? from the proposed corneal wound. Phenylephrine 1.5% mixed with 1% xylocaine 0.2 cc was placed into the anterior chamber. An air bubble was placed followed by Visudyne capsular dye. BSS was then used to irrigate out the air bubble. Viscoat followed by Healon was then placed. A 2.6 mm clear incision with a 2.6 mm blade was placed at the 170 degree meridian. A 360 degree capsulorrhexis style capsulotomy was then performed with a cystitome needle on a Healon. A MiLoop was inspected and then opened in the anterior chamber under the anterior capsule to the right. It was then swept past midline and the nucleus was hydrodissected. The lens was rotated and the procedure repeated. Hydrodelineation and hydrodissection were performed. The phacoemulsification unit is introduced, and sculpting used to groove the central lens. It is then removed in chopping mode. Epi nucleus is removed with epinuclear mode and irrigation aspiration was used to remove the peripheral cortex. The posterior capsule is polished. The intraocular lens is selected, inspected, power confirmed, and placed in the posterior chamber at the desired meridian of 180?. The pupil was not constricted. The wound was stromally hydrated and tested for leaks, there was none and it was left sutureless. The iris was slightly floppy but stayed in good position without a Maluygin ring. Vigamox 0.1 cc was placed into the anterior chamber. Kenalog 0.2 cc was placed in the superior subconjunctival space. A drop of antibiotic and was placed and the eye was patched and shielded. The patient was stable and returned to the recovery room in excellent condition. Dictated by: Leanne Kapadia MD Copy to: [facility] Same procedure as scheduled: Yes
[2020-07-29 09:59] LABS: COVID19 -Nasal RAPID Negative (Negative)
[2020-07-29 10:44] VITALS: BP 175/72; PULSE 60; RESP 16; TEMP 36.2; O2SAT 98; BMI 30.7
[2020-07-29] MEDS: PROPARACAINE 0.5% OPHTH SOL 2 DROPS EYE-OP ×2 (10:48→10:50)
[2020-07-29] MEDS: HYALURONATE SODIUM 10 MG/ML SYRINGE INJ ×2 (12:47→13:11)
[2020-07-29] MEDS: CHONDROIDTIN/SOD HYALURONATE 1.05 ML SYRINGE INTRAOCULA (12:47)
[2020-07-29] MEDS: MOXIFLOXACIN INJ 4 MG/0.8 ML VIAL 0.5 MG EYE-OP (12:47)
[2020-07-29] MEDS: BALANCED SALT IRRIG SOLN NO.2 500 ML, EPINEPHrine 1 MG IRR (12:48)
[2020-07-29] MEDS: PHENYLEPHRINE/LIDOCAINE VIAL (OR) 0.2 ML EYE-OP (12:48)
[2020-07-29] MEDS: TRIAMCINOLONE 50 MG/5 ML VIAL INJ (12:48)
[2020-07-29] MEDS: TRYPAN BLUE 0.5 ML SYRINGE INJ (12:48)
[2020-07-29] MEDS: LIDOCAINE 2% 4 ML, BUPIVACAINE 0.5% (PF) 4 ML, HYALURONIDASE 150 UNIT INJ (12:49)
[2020-07-29] MEDS: ERYTHROMYCIN OPHTH 1 GM OINT 1 APPLIC EYE-RIGHT (12:50)
[2020-07-29 13:30] VITALS: BP 185/98; PULSE 62; RESP 14; TEMP 36.2; O2SAT 99
== END 2020-07-29 14:05 | disposition home or self-care (01) ==
PROVIDERS: PCP Family Medicine; Referring Provider Ophthalmology; Visit Provider Ophthalmology
PROC: (CPT 66984; principal; 2020-07-29 11:45)
DX: H25.11 Age-related nuclear cataract, right eye (principal); H52.201 Unspecified astigmatism, right eye; E78.5 Hyperlipidemia, unspecified; I10 Essential (primary) hypertension; G62.9 Polyneuropathy, unspecified; Z95.0 Presence of cardiac pacemaker; G20 Parkinson's disease; E11.9 Type 2 diabetes mellitus without complications; H53.009 Unspecified amblyopia, unspecified eye; G45.4 Transient global amnesia; Z86.73 Personal history of transient ischemic attack (TIA), and cerebral infarction without residual deficits; H21.81 Floppy iris syndrome; Z20.822 Contact with and (suspected) exposure to COVID-19
CPT/HCPCS: 66984; 87635; J0171; J2704; J3010; J3301; J3470; V2787

== ENCOUNTER → 2020-08-14 15:05 | Outpatient (ROUT) | payer MEDICARE, SELFPAY ==
[2020-05-08 10:42] VITALS: BMI 31.1
[2020-08-14 15:06] LABS: Bacteria Urine None Seen; RBC Urine None Seen (0-5/HPF)
[2020-08-14 15:42] LABS: Appearance Urine UA CLEAR; Bilirubin Urine UA NEGATIVE (NEGATIVE); Color Urine UA YELLOW; Glucose Urine UA NEGATIVE (Negative); Ketones Urine UA NEGATIVE (NEGATIVE); Leukocyte Esterase Urine UA NEGATIVE (NEGATIVE); Nitrite Urine UA NEGATIVE (Negative); Occult Blood Urine UA NEGATIVE (Negative); Protein Urine UA NEGATIVE (Negative); Urobilinogen Urine UA 0.2 E.U./dL (0.2); pH Urine UA 5.5 (4.5-8.0)
[2020-08-14 16:00] LABS: Culture Indicated Urine Cult Not Indicated; Squamous Epithelial Cell Urine 0-1 /HPF (0-5/HPF); WBC Urine 0-1/HPF (0-5/HPF)
== END ==
PROVIDERS: PCP Family Medicine; Visit Provider Orthopaedic Surgery
DX: R82.90 Unspecified abnormal findings in urine (principal)
CPT/HCPCS: 81001

== ENCOUNTER → 2020-08-24 13:58 | Outpatient (CLI) | payer MEDICARE, SELFPAY ==
[2020-05-08 10:42] VITALS: BMI 31.1
[2020-08-24 16:07] LABS: COVID19 -Nasal RAPID Negative (Negative)
== END ==
PROVIDERS: PCP Family Medicine; Visit Provider Physician Assistant
DX: Z01.812 Encounter for preprocedural laboratory examination (principal); Z20.822 Contact with and (suspected) exposure to COVID-19
CPT/HCPCS: 87635; C9803

== ENCOUNTER 2020-08-26 07:11 | Day surgery (SDC) | payer MEDICARE, SELFPAY ==
[2020-05-08 10:42] VITALS: BMI 31.1
--- NOTE | 2020-08-25 19:38 | PM.PREOP ---
Pre-operative Note COVID-19 COVID-19 status: Negative Interval Note History & Physical reviewed/Exam performed by Physician: Yes Changes to H&P: No
--- NOTE | 2020-08-25 19:39 | P.OP_ITS ---
Operative Date/Time/Diagnoses Date of procedure: 08/26/20 Time of procedure: 08:45 Procedure & Clinicians Procedure: Preoperative diagnoses: 1. Left complex surgery with use of capsular dye and possible Miloop. 2. Mature or advanced nuclear sclerotic and cortical cataract with poor visibility of the anterior capsule increasing surgical risks of complications. 3. Astigmatism which he likes to correct toric intraocular lens. 4. Cardiac pacemaker and defibrillator.. 5. History of global amnesia now improved. 6. Hypertension 7. Heart block 8. Polyneuropathy 9. Right central retinal vein occlusion. 10. 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 Postoperative diagnoses: 1. Left complex surgery with use of capsular dye and MiLoop 2. Placement of a toric posterior chamber intraocular lens implant.] Surgeon: Leanne Kapadia MD Complications: none Specimen: None Implant: [id number] [place] 026 Blood loss: None Anesthesia: Retrobulbar with monitored standby. Description of procedure: Dictated by: Leanne Kapadia MD Copy to: [facility] Post operative diagnoses: 1. Left complex cataract removed with use of capsular dye and MiLoop with placement of a toric posterior chamber intraocular lens. Procedure: Phacoemulsification with posterior chamber intraocular lens implant Surgeon: Leanne Kapadia MD Blood loss: None Anesthesia: Retrobulbar with monitored standby Description of procedure: Patient has presented with decreased vision due to cataract which is affecting activities of daily living distance and near. This is best seeing has had successful right cataract surgery but limited potential due to the previous central vein occlusion he has multiple medical issues and is currently as stable as possible with history of previous global amnesia. He has significant astigmatism elects a toric intra-ocular. He has a cardiac pacemaker and defibrillator. He has risk of floppy iris and is tamsulosin. He currently lives in assisted living. This is his better seeing eye as his other eye has had a central retinal vein occlusion. The patient wants surgery to improve vision. He understands the extra risk of surgery during the COVID-19 epidemic and wishes to proceed. He is tested COVID 19 virus negative within 72 hours prior to the procedure. The patient was taken to the operating room and indelible ink benavidez were placed at the 90 and [address] is in place on the operating table and given IV sedation. A retrobulbar block consisting of 6 cc of 2% xylocaine without epinephrine mixed half and half with 0.5% Marcaine with 1 cc of hyaluronidase added is placed between the medial and lateral 1/3 of the inferior orbital rim. Lid akinesia is obtain with 1% xylocaine with epinephrine infiltrated along the lid margin. The eye is manually massaged for 30 sec, prepped using Betadine solution, and draped in the usual sterile fashion. Temporal approach was made, a 1 mm side-port incision was performed 90 degrees from the planned corneal wound. Phenylephrine 1.5% mixed with 1% xylocaine 0.2 cc was placed into the anterior chamber. An air bubble was placed and Visudyne dye was placed to improve visibility of the anterior capsule. The dye was irrigated out to reduce bubbles. Viscoat followed by Healon was then placed. Viscoelastic was used to prevent floppy iris syndrome and no Maluygin ring was needed. A 2.6 mm clear incision with a 2.6 mm blade was placed. A 360 degree capsulorrhexis style capsulotomy was then performed with a cystitome needle on a Healon. Zonules were weak but held intact Hydrodelineation and hydrodissection were performed. The phacoemulsification unit is introduced, and sculpting used to groove the central lens. To lessen zonular stress the Miloop was inspected, then placed underneath the capsulorrhexis to the right foot was pushed past midline of the lens and then moved into the center and the lens dissected. It is then removed in chopping mode at the iris plane. Epi nucleus is removed with epinuclear mode and irrigation aspiration was used to remove the peripheral cortex. The posterior capsule is polished. The intraocular lens is selected, inspected, power confirmed, and placed in the posterior chamber at the the madhuri ired meridian of 026 degrees. The pupil was constricted with Miostat. The wound was stromally hydrated and tested for leaks, there was none and was left sutureless. Vigamox 0.1 cc was placed into the anterior chamber. Kenalog 0.2 cc was placed in the superior subconjunctival space. A drop of antibiotic and was placed and the eye was patched and shielded. The patient was stable and returned to the recovery room in excellent condition. Dictated by: Leanne Kapadia MD Copy to: [facility] Same procedure as scheduled: Yes
[2020-08-26] MEDS: CATARACT EYE COMPOUND (10 DROPS/SYRINGE) 3 DROPS EYE-OP (07:45)
[2020-08-26] MEDS: PROPARACAINE 0.5% OPHTH SOL 2 DROPS EYE-OP (07:56)
[2020-08-26 08:05] VITALS: BP 168/72; PULSE 63; RESP 16; TEMP 36.2; O2SAT 98; BMI 67.6
[2020-08-26] MEDS: ERYTHROMYCIN OPHTH 1 GM OINT 1 APPLIC EYE-LEFT (09:11)
[2020-08-26] MEDS: CHONDROIDTIN/SOD HYALURONATE 1.05 ML SYRINGE INTRAOCULA (09:11)
[2020-08-26] MEDS: HYALURONATE SODIUM 10 MG/ML SYRINGE INJ (09:11)
[2020-08-26] MEDS: MOXIFLOXACIN INJ 4 MG/0.8 ML VIAL 0.5 MG EYE-OP (09:11)
[2020-08-26] MEDS: PHENYLEPHRINE/LIDOCAINE VIAL (OR) 0.2 ML EYE-OP (09:12)
[2020-08-26] MEDS: TRIAMCINOLONE 50 MG/5 ML VIAL INJ (09:12)
[2020-08-26] MEDS: LIDOCAINE 2% 4 ML, BUPIVACAINE 0.5% (PF) 4 ML, HYALURONIDASE 150 UNIT INJ (09:13)
[2020-08-26] MEDS: TRYPAN BLUE 0.5 ML SYRINGE INJ (09:13)
[2020-08-26] MEDS: BALANCED SALT IRRIG SOLN NO.2 500 ML, EPINEPHrine 1 MG IRR (09:13)
[2020-08-26 09:48] VITALS: BP 175/78; PULSE 60; RESP 14; TEMP 36; O2SAT 99
== END 2020-08-26 10:02 ==
LOC: OR 07:19
PROVIDERS: PCP Family Medicine; Referring Provider Ophthalmology; Visit Provider Ophthalmology
PROC: (CPT 66984; principal; 2020-08-26 08:45)
DX: H25.812 Combined forms of age-related cataract, left eye (principal); H52.202 Unspecified astigmatism, left eye; Z95.0 Presence of cardiac pacemaker; I10 Essential (primary) hypertension
CPT/HCPCS: 66984; J0171; J2704; J3010; J3301; J3470; V2787

== ENCOUNTER → 2020-09-04 11:51 | Outpatient (ROUT) | payer MEDICARE, SELFPAY ==
[2020-05-08 10:42] VITALS: BMI 31.1
[2020-09-04 13:06] LABS: Alanine Aminotransferase 24 IU/L (<50); Albumin 3.9 g/dL (3.5-5.0); Albumin Globulin Ratio 1.4 (1.0-2.8); Alkaline Phosphatase 97 U/L (38-126); Aspartate Aminotransferase 24 IU/L (17-59); Blood Urea Nitrogen 15 mg/dL (9-20); Calcium 9.8 mg/dL (8.4-10.2); Carbon Dioxide 27 mmol/L (22-32); Chloride 103 mmol/L (98-107); Cholesterol 141 mg/dL (140-199); Estimated Glomerular Filt Rate > 60.0 mL/min (>60); Globulin 2.8 g/dL (1.7-4.1); Glucose 141 mg/dL (80-110); HDL Cholesterol 43 mg/dL (40-60); HEMOLYSIS < 15 (0-50); LDL Cholesterol Calculated 65 mg/dL (<100); Potassium 4.2 mmol/L (3.4-5.1); Sodium 139 mmol/L (137-145); Total Protein 6.7 g/dL (6.3-8.2); Triglycerides 164 mg/dL (35-150)
== END ==
PROVIDERS: PCP Family Medicine; Visit Provider Internal Medicine Cardiovascular Disease
DX: E78.5 Hyperlipidemia, unspecified (principal)
CPT/HCPCS: 80053; 80061

== ENCOUNTER → 2020-09-30 08:35 | Outpatient (ROUT) | payer MEDICARE, SELFPAY ==
[2020-05-08 10:42] VITALS: BMI 31.1
[2020-09-30 09:20] LABS: Hemoglobin A1C% w Est Avg Glu 6.2 % (4.0-6.0)
[2020-09-30 10:09] LABS: Alanine Aminotransferase 22 IU/L (<50); Albumin 3.4 g/dL (3.5-5.0); Albumin Globulin Ratio 1.3 (1.0-2.8); Alkaline Phosphatase 97 U/L (38-126); Aspartate Aminotransferase 21 IU/L (17-59); BUN Creatinine Ratio 12.5 (6-22); Bilirubin Total 0.7 mg/dL (0.2-1.3); Blood Urea Nitrogen 12 mg/dL (9-20); Calcium 9.6 mg/dL (8.4-10.2); Carbon Dioxide 29 mmol/L (22-32); Chloride 103 mmol/L (98-107); Estimated Glomerular Filt Rate > 60.0 mL/min (>60); Globulin 2.6 g/dL (1.7-4.1); Glucose 118 mg/dL (80-110); HEMOLYSIS < 15 (0-50); Potassium 3.5 mmol/L (3.4-5.1); Sodium 139 mmol/L (137-145)
== END ==
PROVIDERS: PCP Family Medicine; Visit Provider Family Medicine
DX: H34.9 Unspecified retinal vascular occlusion (principal); I10 Essential (primary) hypertension; R73.03 Prediabetes; E11.3219 Type 2 diabetes mellitus with mild nonproliferative diabetic retinopathy with macular edema, unspecified eye
CPT/HCPCS: 36415; 80053; 83036

== ENCOUNTER 2020-12-28 10:56 | Emergency (ER) | payer MEDICARE, SELFPAY ==
[2020-05-08 10:42] VITALS: BMI 31.1
[2020-12-28] VITALS (9 sets, daily range): BP systolic 176–191; BP diastolic 73–100; PULSE 60–75; RESP 9–22; TEMP 36.4; O2SAT 96–99
--- NOTE | 2020-12-28 11:07 | DI.RAD.S_ITS ---
PROCEDURE: XR CHEST 1V INDICATIONS: chest pain TECHNIQUE: One view of the chest was acquired. COMPARISON: CT, CT CHEST W CON, 11/08/2017, 11:04. [facility], , CHEST 2 VIEW, 02/27/2017, 14:57. [facility], , CHEST 2 VIEW, 10/04/2016, 16:06. FINDINGS: Surgical changes and devices: Left pacemaker. Lungs and pleura: Lungs appear clear. Prominent lung volumes. Emphysematous change. No pleural effusions or pneumothorax. Mediastinum: Mediastinal contours appear normal. Heart size is normal. Bones and chest wall: No suspicious bony lesions. Overlying soft tissues appear unremarkable. IMPRESSION: No acute cardiopulmonary abnormality. Emphysematous change. Dictated by: Austen Ziegler M.D. on 12/28/2020 at 11:31 Approved by: Austen Ziegler M.D. on 12/28/2020 at 11:33
--- NOTE | 2020-12-28 11:37 | ED_ITS ---
HPI - Extremity Problem General Chief complaint: Extremity Problem,Nontraumatic Stated complaint: cellulitus on legs Time Seen by Provider: 12/28/20 11:17 Source: patient Mode of arrival: Wheelchair Limitations: no limitations History of Present Illness HPI Narrative: Patient is an 85-year-old male. Does have a pacemaker in place secondary to a heart block per his report. He does state that he has been diagnosed with heart failure. He is on hydrochlorothiazide otherwise no other diuretics. Has had a 9 lb weight gain over the past several days. Is here because of swelling in his lower extremities. He has baseline swelling however it has worsened over the past couple days. No shortness of breath. No chest pain. Lightheadedness. Is taking all of his medications as directed. Does have weeping of clear fluid from his legs. Related Data Home Medications Medication Instructions Recorded Confirmed Disabled Parking Permit 1 ea MISCELLANEOUS DIRECTED 11/24/17 12/28/20 carvedilol 12.5 mg tablet 12.5 mg PO BID 08/15/18 12/28/20 hydrochlorothiazide 25 mg tablet 25 mg PO DAILY 12/28/20 12/28/20 losartan 100 mg tablet 100 mg PO DAILY 12/28/20 12/28/20 potassium chloride 10 mEq 10 meq PO DAILY 12/28/20 12/28/20 tablet,extended release tamsulosin 0.4 mg capsule 0.4 mg PO DAILY 12/28/20 12/28/20 Previous Rx's Medication Instructions Recorded cinnamon bark 500 mg capsule 500 mg PO BID #60 cap 12/14/17 (Cinnamon) multivitamin-iron 9 mg-folic acid 1 tab PO QDAY #90 tab 02/16/18 400 mcg-calcium and minerals tablet (Thera M Plus (ferrous fumarate)) acetaminophen 325 mg tablet 650 mg PO Q6HR PRN #60 tab 03/04/19 atorvastatin 20 mg tablet 20 mg PO BEDTIME #90 tab 12/14/20 furosemide 40 mg tablet (Lasix) 40 mg PO DAILY 10 Days #10 tab 12/28/20 Allergies Allergy/AdvReac Type Severity Reaction Status Date / Time No Known Drug Allergies Allergy Verified 11/24/20 10:23 Review of Systems Constitutional Constitutional: Reports as per HPI and Denies fever(s) ENT Ears, Nose, Mouth, and Throat: Denies vertigo and Denies dizziness Cardiovascular Cardiovascular: Reports system reviewed and no additional complaints, except as documented, Denies chest pain, Denies rapid heart rate, Reports pedal edema, Denies claudication, Denies leg ulcers, Reports leg edema, Denies lightheadedness, Denies dyspnea and Denies slow heart rate Respiratory Respiratory: Denies cough and Denies dyspnea Gastrointestinal Gastrointestinal: Denies abdominal pain, Denies nausea and Denies vomiting Genitourinary Genitourinary: Reports system reviewed and no additional complaints, except as documented Musculoskeletal Musculoskeletal: Denies numbness and Denies tingling Integumentary/Breasts Skin/Breast: Reports system reviewed and no additional complaints, except as documented Neurologic Neurologic: Reports system reviewed and no additional complaints, except as documented, Denies confusion, Denies vertigo, Denies dizziness, Denies numbness and Denies tingling Psychiatric Psychiatric: Denies confusion Hematologic/Lymphatic On Anticoagulants: No Allergic/Immunologic Allergic/Immunologic: Reports system reviewed and no additional complaints, except as documented Patient History Medical History Adhesive capsulitis AICD (automatic cardioverter/defibrillator) present (~07/05/13) Atopic dermatitis BPH (benign prostatic hyperplasia) BPH with urinary obstruction Colon cancer Colon polyps Depression Diabetes mellitus Diarrhea Edema Erectile dysfunction Facial trauma Hearing loss History of echocardiogram (~06/2016) History of fracture as a child History of left heart catheterization (~11/2015) History of syncope Hyperlipidemia Hypertension Mitral regurgitation 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 Obese Pacemaker Partial tear of right rotator cuff Peripheral neuropathy Prediabetes Retention of urine Retinal artery occlusion Right shoulder pain Seborrheic keratosis Sensory ataxia Tear meniscus knee V-tach Vertigo Surgical History History of colonoscopy with polypectomy History of prostate surgery History of tonsillectomy History of umbilical hernia repair Implantable cardioverter-defibrillator (ICD) in situ Presence of cardiac pacemaker S/P partial colectomy Family History Father [place] (myocardial infarction) Social History household members: other Smoking Status: Former smoker alcohol intake: current Smoking Status: Former smoker alcohol intake frequency: 0-2 drinks per day Substance Use Type: does not use Exam Initial Vital Signs Initial Vital Signs: Vital Signs Temperature 97.5 F L 12/28/20 11:00 Pulse Rate 71 12/28/20 11:00 Respiratory Rate 20 12/28/20 11:00 Blood Pressure 186/81 H 12/28/20 11:00 Pulse Oximetry 97 12/28/20 11:00 Const General: cooperative, comfortable and well developed Limitations: mental status not altered HENMT Head: normal to inspection Chest Chest: normal inspection of the chest Resp Effort & Inspection: normal respiratory effort Auscultation: clear to auscultation bilaterally Cardio Rate: regular rate Rhythm: regular rhythm GI Inspection: normal to inspection and non-distended Palpation: No tender Skin General: no rashes or lesions noted Neuro General: patient alert, patient awake, patient oriented x3 and moves all ex tremities Extrem General: capillary refill normal and edema Psych Appearance: grossly normal and well kempt Course Orders Ordered: ED Orders 12/28/20 11:07 XR chest 1V Stat 12/28/20 11:15 EKG-12 Lead Stat 12/28/20 11:20 BNP [NT-proBNP (BNP-Adult 18+)] Stat Complete Blood Count AUTO DIFF Stat Comprehensive Metabolic Panel Stat Lipase Stat Magnesium Stat Partial Thromboplastin Time Stat Prothrombin Time INR Stat Troponin & CK Cardiac Panel Stat Discontinued Medications Furosemide (Furosemide 100 Mg/10 Ml Vial) 60 mg IV NOW ONE Stop: 12/28/20 11:48 Last Admin: 12/28/20 12:28 Dose: 60 mg Documented by: DIMITRIOS Vital Signs Vital signs: Vital Signs - 8 hr 12/28/20 11:00 12/28/20 11:31 12/28/20 11:32 Temperature 97.5 F L Pulse Rate 71 62 62 Respiratory Rate 20 13 11 L Blood Pressure 186/81 H 191/78 H Pulse Oximetry 97 99 12/28/20 11:39 12/28/20 12:00 12/28/20 12:01 Temperature Pulse Rate 60 60 60 Respiratory Rate 10 L 9 L 18 Blood Pressure 182/73 H 176/75 H Pulse Oximetry 99 99 98 12/28/20 12:30 12/28/20 12:43 12/28/20 12:58 Temperature Pulse Rate 60 60 75 Respiratory Rate 16 22 Blood Pressure 190/100 H 181/76 H Pulse Oximetry 99 98 96 [facility] - Extremity (Nontraumatic) Lab Data Result diagrams: 12/28/20 11:20 12/28/20 11:20 Labs: Lab Results 12/28/20 12/28/20 12/28/20 Range/Units 11:20 11:20 11:20 WBC 8.3 (4.5-11.0) X10^3/uL RBC 4.22 L (4.5-5.9) X10^6/uL Hgb 13.8 (13.5-17.5) g/dL Hct 39.3 L (41-53) % MCV 93.1 (80-100) fL MCH 32.7 (26-34) PG MCHC 35.1 (30-36) % RDW 13.0 (11.6-14.8) % Plt Count 235 (150-400) X10^3/uL Neut % (Auto) 55.0 (50-75) % Lymph % (Auto) 33.0 (25-40) % [place] % (Auto) 9.4 (3-14) % Eos % (Auto) 1.6 L (2-4) % Baso % (Auto) 1.0 (0-2) % Neut # (Auto) 4500 (6459-0075) /uL Lymph # (Auto) 2700 (0197-9233) /uL [place] # (Auto) 800 (0-900) /uL Eos # (Auto) 100 (0-450) /uL Baso # (Auto) 100 (0-100) /uL PT 11.4 (10.1-12.7) SECONDS INR 1.0 (0.9-1.3) APTT 33 (26.4-36.2) SECONDS Sodium 138 (137-145) mmol/L Potassium 3.4 (3.4-5.1) mmol/L Chloride 100 (98-107) mmol/L Carbon Dioxide 30 (22-32) mmol/L BUN 13 (9-20) mg/dL Creatinine 1.06 (0.66-1.25) mg/dL Estimated GFR > 60.0 (>60) mL/min BUN/Creatinine Ratio 12.3 (6-22) Glucose 139 H (80-110) mg/dL Calcium 9.2 (8.4-10.2) mg/dL Magnesium 2.0 (1.6-2.3) mg/dL Total Bilirubin 0.8 (0.2-1.3) mg/dL AST 27 (17-59) IU/L ALT 26 (<50) IU/L Alkaline Phosphatase 102 (38-126) U/L Total Creatine Kinase 65 (55-170) U/L CK-MB (CK-2) TNP CK-MB (CK-2) Rel Index TNP Troponin I < 0.012 (0.01-0.034) ng/mL NT-Pro-B Natriuret Pep (<450) pg/mL Total Protein 6.8 (6.3-8.2) g/dL Albumin 4.0 (3.5-5.0) g/dL Globulin 2.8 (1.7-4.1) g/dL Albumin/Globulin Ratio 1.4 (1.0-2.8) Lipase 74 (23-300) U/L 11/15/21 Range/Units 11:20 WBC (4.5-11.0) X10^3/uL RBC (4.5-5.9) X10^6/uL Hgb (13.5-17.5) g/dL Hct (41-53) % MCV (80-100) fL MCH (26-34) PG MCHC (30-36) % RDW (11.6-14.8) % Plt Count (150-400) X10^3/uL Neut % (Auto) (50-75) % Lymph % (Auto) (25-40) % [place] % (Auto) (3-14) % Eos % (Auto) (2-4) % Baso % (Auto) (0-2) % Neut # (Auto) (1053-4715) /uL Lymph # (Auto) (8831-8772) /uL [place] # (Auto) (0-900) /uL Eos # (Auto) (0-450) /uL Baso # (Auto) (0-100) /uL PT (10.1-12.7) SECONDS INR (0.9-1.3) APTT (26.4-36.2) SECONDS Sodium (137-145) mmol/L Potassium (3.4-5.1) mmol/L Chloride (98-107) mmol/L Carbon Dioxide (22-32) mmol/L BUN (9-20) mg/dL Creatinine (0.66-1.25) mg/dL Estimated GFR (>60) mL/min BUN/Creatinine Ratio (6-22) Glucose (80-110) mg/dL Calcium (8.4-10.2) mg/dL Magnesium (1.6-2.3) mg/dL Total Bilirubin (0.2-1.3) mg/dL AST (17-59) IU/L ALT (<50) IU/L Alkaline Phosphatase (38-126) U/L Total Creatine Kinase (55-170) U/L CK-MB (CK-2) CK-MB (CK-2) Rel Index Troponin I (0.01-0.034) ng/mL NT-Pro-B Natriuret Pep 492 H (<450) pg/mL Total Protein (6.3-8.2) g/dL Albumin (3.5-5.0) g/dL Globulin (1.7-4.1) g/dL Albumin/Globulin Ratio (1.0-2.8) Lipase (23-300) U/L Imaging Data Chest x-ray: Radiologist's Impression: [address] [address] XRay Report Signed Patient: Mac Manley MR#: [id number] : 1935 Acct:[id number] Age/Sex: 85 / M Date of Service: 12/28/20 Loc: ED Accession Number: [id number] ?? Procedure: XR chest 1V Ordering Provider: Frankie Ortega D.O. PROCEDURE:? XR CHEST 1V ? INDICATIONS:? chest pain ? TECHNIQUE:? One view of the chest was acquired.? ? COMPARISON:? CT, CT CHEST W CON, 11/08/2017, 11:04.? [facility], , CHEST 2 VIEW, 02/27/2017, 14:57.? [facility], , CHEST 2 VIEW, 10/04/2016, 16:06. ? FINDINGS:? ? Surgical changes and devices:? Left pacemaker. ? Lungs and pleura:? Lungs appear clear.? Prominent lung volumes.? Emphysematous change.? No pleural effusions or pneumothorax.? ? Mediastinum:? Mediastinal contours appear normal.? Heart size is normal.? ? Bones and chest wall:? No suspicious bony lesions.? Overlying soft tissues appear unremarkable.? ? IMPRESSION:? No acute cardiopulmonary abnormality. Emphysematous change. ? ? Dictated by: Austen Ziegler M.D. on 12/28/2020 at 11:31 ? ? Approved by: Austen Ziegler M.D. on 12/28/2020 at 11:33?? ECG Data Attestation EKG: I personally reviewed and interpreted this ECG as follows: Interpretation: Atrial sensed Ventricular paced Rate is 61 MDM Narrative Medical decision making narrative: Patient has no chest pain. No shortness of breath. No fevers. Patient does have bilateral lower extremity swelling. He has equal bilateral. There is no findings consistent with cellulitis. Low suspicion for DVT. I do suspect fluid overload. Was given Lasix. He did diurese here in the ER. Patient is not hypoxic. Will start the patient on [place] six. He does have a follow-up with his primary doctor in approximately 10 days. Will having keep this appointment. Will put him on Lasix until then. He will continue the rest of his medications until then. He was given return precautions and follow-up instructions. He expressed understanding and agreement. Lasix was electronically transmitted to the pharmacy of his choice. Discharge Plan Departure Patient Disposition: Home Clinical Impression: Leg edema Instructions: Edema (Alternative Therapy), Edema Activity Restrictions/Additional Instructions: We will start you on a medicine called furosemide/Lasix. This is a 1 time a day medication. It will cause you to urinate so I recommend taking it in the morning. You can continue the rest of your medications as directed. Keep your scheduled appointment with your primary doctor next week. Return to the emergency department for any chest pain or shortness of breath like we discussed. Prescriptions: New furosemide [Lasix] 40 mg tablet 40 mg PO DAILY 10 Days Qty: 10 RF: 0 No Action cinnamon bark [Cinnamon] 500 mg capsule 500 mg PO BID Qty: 60 RF: 3 nrwbwvwa-lvpx-US-calcium-mins [Thera M Plus (ferrous fumarat)] 9 mg iron-400 mcg tablet 1 tab PO QDAY Qty: 90 RF: 0 acetaminophen 325 mg tablet 650 mg PO Q6HR PRN (Reason: Pain, Mild (1-3)) Qty: 60 RF: 5 atorvastatin 20 mg tablet 20 mg PO BEDTIME Qty: 90 RF: 1 carvedilol 12.5 mg tablet 12.5 mg PO BID RF: 0 Disabled Parking Permit 1 ea miscellaneous DIRECTED RF: 0 potassium chloride 10 mEq tablet extended release 10 meq PO DAILY RF: 0 tamsulosin 0.4 mg capsule 0.4 mg PO DAILY RF: 0 hydrochlorothiazide 25 mg tablet 25 mg PO DAILY RF: 0 losartan 100 mg tablet 100 mg PO DAILY RF: 0 Referrals: Ryan Rice, [Primary Care Provider] -
[2020-12-28 11:45] LABS: Add Manual Diff / Slide Review NO; Basophils Absolute Auto 100 /uL (0-100); Eosinophils Absolute Auto 100 /uL (0-450); Eosinophils Percent Auto 1.6 % (2-4); Hematocrit 39.3 % (41-53); Hemoglobin 13.8 g/dL (13.5-17.5); Lymphocytes Absolute Auto 2700 /uL (1100-4500); Mean Corpuscular HGB Conc 35.1 % (30-36); Mean Corpuscular Hemoglobin 32.7 PG (26-34); Mean Corpuscular Volume 93.1 fL (80-100); Monocytes Absolute Auto 800 /uL (0-900); Monocytes Percent Auto 9.4 % (3-14); Neutrophils Absolute Auto 4500 /uL (1500-7000); Platelet Count 235 X10^3/uL (150-400); Red Blood Cell Count 4.22 X10^6/uL (4.5-5.9); White Blood Cell Count 8.3 X10^3/uL (4.5-11.0)
[2020-12-28 11:52] LABS: Prothrombin Time 11.4 SECONDS (10.1-12.7)
[2020-12-28 11:55] LABS: PTT Partial Thromboplastin Tim 33 SECONDS (26.4-36.2)
[2020-12-28 11:58] LABS: Alanine Aminotransferase 26 IU/L (<50); Albumin Globulin Ratio 1.4 (1.0-2.8); Alkaline Phosphatase 102 U/L (38-126); Aspartate Aminotransferase 27 IU/L (17-59); BUN Creatinine Ratio 12.3 (6-22); Bilirubin Total 0.8 mg/dL (0.2-1.3); Blood Urea Nitrogen 13 mg/dL (9-20); Calcium 9.2 mg/dL (8.4-10.2); Carbon Dioxide 30 mmol/L (22-32); Chloride 100 mmol/L (98-107); Creatine Kinase 65 U/L (55-170); Estimated Glomerular Filt Rate > 60.0 mL/min (>60); Globulin 2.8 g/dL (1.7-4.1); Glucose 139 mg/dL (80-110); HEMOLYSIS < 15 (0-50); Lipase 74 U/L (23-300); Potassium 3.4 mmol/L (3.4-5.1); Sodium 138 mmol/L (137-145); Total Protein 6.8 g/dL (6.3-8.2)
[2020-12-28 12:05] LABS: NT-proBNP (BNP-Adult 18+) 492 pg/mL (<450)
[2020-12-28 12:07] LABS: Troponin I < 0.012 ng/mL (0.01-0.034)
[2020-12-28] MEDS: FUROSEMIDE 100 MG/10 ML VIAL 60 MG IV (12:28)
== END 2020-12-28 13:18 | disposition home or self-care (01) ==
PROVIDERS: Emergency Provider Emergency Medicine; PCP Family Medicine
DX: R60.0 Localized edema (principal); I10 Essential (primary) hypertension; Z87.891 Personal history of nicotine dependence
CPT/HCPCS: 36415; 71045; 80053; 82550; 83690; 83735; 83880; 84484; 85025; 85610; 85730; 93005; 99284; J1940

== ENCOUNTER → 2021-01-14 08:43 | Outpatient (CLI) | payer MEDICARE, SELFPAY ==
[2020-05-08 10:42] VITALS: BMI 31.1
[2021-01-14 10:54] LABS: Alanine Aminotransferase 35 IU/L (<50); Albumin 3.7 g/dL (3.5-5.0); Albumin Globulin Ratio 1.3 (1.0-2.8); Alkaline Phosphatase 90 U/L (38-126); Aspartate Aminotransferase 27 IU/L (17-59); Bilirubin Total 0.6 mg/dL (0.2-1.3); Blood Urea Nitrogen 17 mg/dL (9-20); Calcium 8.8 mg/dL (8.4-10.2); Carbon Dioxide 31 mmol/L (22-32); Chloride 102 mmol/L (98-107); Estimated Glomerular Filt Rate > 60.0 mL/min (>60); Globulin 2.8 g/dL (1.7-4.1); Glucose 138 mg/dL (80-110); HEMOLYSIS < 15 (0-50); Potassium 3.8 mmol/L (3.4-5.1); Sodium 140 mmol/L (137-145); Total Protein 6.5 g/dL (6.3-8.2)
== END ==
PROVIDERS: PCP Family Medicine; Referring Provider Family Medicine; Visit Provider Family Medicine
DX: I50.9 Heart failure, unspecified (principal)
CPT/HCPCS: 36415; 80053

== ENCOUNTER → 2021-03-12 13:46 | Outpatient (CLI) | payer MEDICARE, SELFPAY ==
[2020-05-08 10:42] VITALS: BMI 31.1
[2021-03-12 14:49] LABS: Hemoglobin A1C% w Est Avg Glu 6.8 % (4.0-6.0)
[2021-03-12 15:24] LABS: Alanine Aminotransferase 34 IU/L (<50); Albumin 3.8 g/dL (3.5-5.0); Albumin Globulin Ratio 1.4 (1.0-2.8); Alkaline Phosphatase 77 U/L (38-126); Aspartate Aminotransferase 30 IU/L (17-59); BUN Creatinine Ratio 14.7 (6-22); Bilirubin Total 0.9 mg/dL (0.2-1.3); Blood Urea Nitrogen 15 mg/dL (9-20); Calcium 9.3 mg/dL (8.4-10.2); Carbon Dioxide 30 mmol/L (22-32); Chloride 104 mmol/L (98-107); Estimated Glomerular Filt Rate > 60.0 mL/min (>60); Globulin 2.8 g/dL (1.7-4.1); Glucose 129 mg/dL (80-110); HEMOLYSIS < 15 (0-50); Potassium 4.3 mmol/L (3.4-5.1); Sodium 141 mmol/L (137-145); Total Protein 6.6 g/dL (6.3-8.2)
== END ==
PROVIDERS: PCP Family Medicine; Referring Provider Internal Medicine Cardiovascular Disease; Visit Provider Internal Medicine Cardiovascular Disease
DX: R73.03 Prediabetes (principal); I42.0 Dilated cardiomyopathy; I50.9 Heart failure, unspecified
CPT/HCPCS: 36415; 80053; 83036

== ENCOUNTER → 2021-04-02 13:35 | Outpatient (CLI) | payer MEDICARE, SELFPAY ==
[2021-03-24 15:00] VITALS: BMI 31.1
[2021-04-02 15:28] LABS: BUN Creatinine Ratio 24.5 (6-22); Blood Urea Nitrogen 25 mg/dL (9-20); Calcium 9.3 mg/dL (8.4-10.2); Carbon Dioxide 29 mmol/L (22-32); Chloride 102 mmol/L (98-107); Estimated Glomerular Filt Rate > 60.0 mL/min (>60); Glucose 162 mg/dL (80-110); HEMOLYSIS 16 (0-50); Potassium 3.9 mmol/L (3.4-5.1); Sodium 138 mmol/L (137-145)
[2021-04-02 15:36] LABS: NT-proBNP (BNP-Adult 18+) 308 pg/mL (<450)
== END ==
PROVIDERS: PCP Family Medicine; Referring Provider Internal Medicine Cardiovascular Disease; Visit Provider Internal Medicine Cardiovascular Disease
DX: I42.8 Other cardiomyopathies (principal); R60.0 Localized edema; I10 Essential (primary) hypertension
CPT/HCPCS: 36415; 80048; 83880

== ENCOUNTER 2021-06-10 04:29 | Emergency (ER) | payer MEDICARE, SELFPAY ==
[2021-03-24 15:00] VITALS: BMI 31.1
[2021-06-10 04:33] VITALS: BP 189/79; PULSE 65; RESP 18; TEMP 36.6; O2SAT 98
--- NOTE | 2021-06-10 05:43 | ED.EAR ---
HPI - Ear Problem General Chief complaint: Ear Stated complaint: right ear pulsing and on face Time Seen by Provider: 06/10/21 05:35 Source: patient Mode of arrival: Wheelchair History of Present Illness HPI Narrative: Patient is an 85-year-old male history of heart block pacemaker hypertension presenting today with a pulsating sound in his right ear only. He said it kept him awake all night he does not notice it now that he is in the emergency department. He has no pain just hears his pulse. No chest pain no shortness of breath no fever. Related Data Home Medications Medication Instructions Recorded Confirmed carvedilol 12.5 mg tablet 12.5 mg PO BID 08/15/18 04/29/21 losartan 100 mg tablet 100 mg PO DAILY 12/28/20 04/29/21 Previous Rx's Medication Instructions Recorded cinnamon bark 500 mg capsule 500 mg PO BID #60 cap 12/14/17 (Cinnamon) multivitamin-iron 9 mg-folic acid 1 tab PO QDAY #90 tab 02/16/18 400 mcg-calcium and minerals tablet (Thera M Plus (ferrous fumarate)) atorvastatin 20 mg tablet 20 mg PO BEDTIME #90 tab 12/14/20 Disabled Parking Permit #1 ea 01/19/21 acetaminophen 325 mg tablet 650 mg PO Q6HR PRN #90 tab 02/22/21 potassium chloride 10 mEq 20 meq PO DAILY #180 tab 03/10/21 tablet,extended release furosemide 20 mg tablet 20 mg PO DAILY #90 tab 03/24/21 hydrochlorothiazide 25 mg tablet 25 mg PO QAM #90 tab 03/24/21 tamsulosin 0.4 mg capsule 0.8 mg PO DAILY #180 cap 03/24/21 Allergies Allergy/AdvReac Type Severity Reaction Status Date / Time No Known Drug Allergies Allergy Verified 04/29/21 10:40 Review of Systems Review of Systems Narrative: GENERAL: Denies chills,fever HEENT: See HPI RESPIRATORY: Denies dyspnea, cough, wheezing CARDIOVASCULAR: Denies chest pain, palpitations GASTROINTESTINAL: Denies nausea, vomiting MUSCULOSKELETAL: Denies extremity pain, injury SKIN: No rash, no laceration, no pruritus NEUROLOGIC: Denies weakness, dizziness, headache, numbness 8 point review of systems is negative except for those stated above and HPI Patient History Medical History Adhesive capsulitis AICD (automatic cardioverter/defibrillator) present (~07/05/13) Atopic dermatitis BPH (benign prostatic hyperplasia) BPH with urinary obstruction CHF (congestive heart failure) Colon cancer Colon polyps Depression Diabetes mellitus Diarrhea Edema Erectile dysfunction Facial trauma Hearing loss History of echocardiogram (~06/2016) History of fracture as a child History of left heart catheterization (~11/2015) History of syncope Hyperlipidemia Hypertension Mitral regurgitation 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 Obese Pacemaker Partial tear of right rotator cuff Peripheral neuropathy Prediabetes Retention of urine Retinal artery occlusion Right shoulder pain Seborrheic keratosis Sensory ataxia Tear meniscus knee V-tach Vertigo Surgical History History of colonoscopy with polypectomy History of prostate surgery History of tonsillectomy History of umbilical hernia repair Implantable cardioverter-defibrillator (ICD) in situ Presence of cardiac pacemaker S/P partial colectomy Family History Father [place] (myocardial infarction) Social History household members: other Smoking Status: Former smoker alcohol intake: current Smoking Status: Former smoker alcohol intake frequency: 0-2 drinks per day Substance Use Type: does not use Exam Initial Vital Signs Initial Vital Signs: Vital Signs Temperature 97.8 F 06/10/21 04:33 Pulse Rate 65 06/10/21 04:33 Respiratory Rate 18 06/10/21 04:33 Blood Pressure 189/79 H 06/10/21 04:33 Pulse Oximetry 98 06/10/21 04:33 GENERAL: Alert pleasant 85-year-old male EAR: Normal external ears, tympanic membrane visualized bilaterally without erythema NECK: No JVD no bruits CARDIOVASCULAR: peripheral pulses in tact, cap refill <2 sec RESPIRATORY: No respiratory distress, speaks in full sentences without difficulty EXTREMITIES: Normal range of motion, no clubbing or edema. Neurovascularly intact. Strong regular peripheral pulses NEUROLOGICAL: Cranial nerves II through XII grossly intact. Normal gait and speech. SKIN: Warm, dry, no petechiae, no rashes or lesions. Course Vital Signs Vital signs: Vital Signs - 8 hr 06/10/21 04:33 Temperature 97.8 F Pulse Rate 65 Respiratory Rate 18 Blood Pressure 189/79 H Pulse Oximetry 98 Medical Decision Making MDM Narrative Medical decision making narrative: Patient use a pulsating in his right ear only only in his room he no longer hears it in the ED. no sign of infection unlikely to be dissection he has no weakness. He has no neck pain or numbness. Discharge Plan Departure Patient Disposition: Home Clinical Impression: Worried well Activity Restrictions/Additional Instructions: *You have been diagnosed with pulsating in right ear *What to do: I am glad the pulsating went away. Please continue to monitor infection at this time *Continue to take medications as directed *Follow up with your primary care provider in 2-3 days or call [phone] *Return to ER if you should have persistent pulsating despite environment, chest pain, weakness numbness tingling in arm or hand or new, worsening or concerning symptoms Prescriptions: No Action cinnamon bark [Cinnamon] 500 mg capsule 500 mg PO BID Qty: 60 3RF pbjrdiux-uusb-KC-calcium-mins [Thera M Plus (ferrous fumarat)] 9 mg iron-400 mcg tablet 1 tab PO QDAY Qty: 90 0RF atorvastatin 20 mg tablet 20 mg PO BEDTIME Qty: 90 1RF (DME) Disabled Parking Permit See Rx Instructions .ROUTE .MEDSUPPLY Qty: 1 0RF Rx Instructions: Valid for 5 years acetaminophen 325 mg tablet 650 mg PO Q6HR PRN (Reason: Pain, Mild (1-3)) Qty: 90 3RF potassium chloride 10 mEq tablet extended release 20 meq PO DAILY Qty: 180 0RF furosemide 20 mg tablet 20 mg PO DAILY Qty: 90 3RF hydrochlorothiazide 25 mg tablet 25 mg PO QAM Qty: 90 3RF Rx Instructions: take one tablet daily at noon tamsulosin 0.4 mg capsule 0.8 mg PO DAILY Qty: 180 3RF carvedilol 12.5 mg tablet 12.5 mg PO BID 0RF losartan 100 mg tablet 100 mg PO DAILY 0RF Referrals: Ryan Rice DO [Primary Care Provider] -
== END 2021-06-10 05:52 | disposition home or self-care (01) ==
PROVIDERS: Emergency Provider Emergency Medicine; PCP Family Medicine
DX: H93.11 Tinnitus, right ear (principal)
CPT/HCPCS: 99281

== ENCOUNTER → 2021-08-03 10:29 | Outpatient (CLI) | payer MEDICARE, SELFPAY ==
[2021-03-24 15:00] VITALS: BMI 31.1
[2021-08-03 12:18] LABS: COVID19 -Nasal RAPID Negative (Negative)
== END ==
PROVIDERS: PCP Family Medicine; Visit Provider Surgery
DX: Z01.812 Encounter for preprocedural laboratory examination (principal); Z20.822 Contact with and (suspected) exposure to COVID-19
CPT/HCPCS: 87635; C9803

== ENCOUNTER 2021-08-04 10:51 | Day surgery (SDC) | payer MEDICARE, SELFPAY ==
[2021-03-24 15:00] VITALS: BMI 31.1
--- NOTE | 2021-08-04 | PATH_ITS ---
[facility] Accession Number: [id number] . 01 Material submitted: . PART A: rectum - RECTUM PART B: colon - CECUM . 01 Diagnosis: A. Rectum, Biopsy: Hyperplastic rectal mucosa. Negative for active, chronic, and microscopic colitis. Negative for dysplasia and malignancy. . B. Cecum, Biopsy: Tubulovillous adenoma. No evidence of malignancy or high-grade dysplasia. MRV 08/06/2021 1002 Local . 01 Electronically signed: . Fela Fleming MD, Pathologist NPI- [id number] . 01 Gross description: . Part A: RECTUM: Received in formalin is 1 fragment(s) of dodd, soft tissue measuring 0.3 x 0.3 x 0.2 cm submitted entirely in 1 cassette(s) Part B: CECUM: Received in formalin is 1 fragment(s) of dodd, soft tissue measuring 0.4 x 0.3 x 0.3 cm submitted entirely in 1 cassette(s) /CPE 08/05/2021 0858 Local . 01 Pathologist provided ICD-10: D12.0 . 01 CPT . 590780, 229212 Specimen Comment: A courtesy copy of this report has been sent to [phone] Performed at: 01 [facility] [address] [place] [address] [address], [place], [place] [id number] MD Doug Johnson MD Phone: [phone]
--- NOTE | 2021-08-04 11:27 | PM.PREOP ---
Pre-operative Note Interval Note History & Physical reviewed/Exam performed by Physician: Yes Changes to H&P: No
[2021-08-04] MEDS: LACTATED RINGERS 1,000 ML 200 ML IV (11:35)
[2021-08-04 11:39] VITALS: BP 177/83; PULSE 67; RESP 16; TEMP 36.4; O2SAT 97; BMI 29.8
[2021-08-04 12:31] VITALS: BP 100/57; PULSE 61; RESP 8; TEMP 36.3; O2SAT 95
--- NOTE | 2021-08-04 12:34 | PM.OP.COLON ---
Operative Date/Time/Diagnoses Date of procedure: 08/04/21 Time of procedure: 12:34 Pre-op diagnosis: History of colon Post-op diagnosis: same Procedure & Clinicians Study performed: Colonoscopy Same procedure as scheduled: Yes Indications: History of colon cancer Surgeon: Leif Sousa Procedure Notes Procedure in detail: The history and physical was performed/updated and the patient is ASA class is 3. The procedure was discussed in detail with the patient. Potential risks complications including infection, bleeding, missed diagnosis, perforation, need for surgery, and were explained. Their questions were answered and informed consent was obtained. Patient was brought to the procedure room and placed standard monitoring equipment. The patient's vital signs were monitored continuously throughout the entire procedure. Prior to starting time-out was performed. The patient was placed in the left lateral recumbent position. Procedural sedation was administered by Anesthesia. Examination began with a thorough inspection of the perianal area there was no evidence of fissures, fistulae, external hemorrhoids or cutaneous malignancy. The colonoscopy scope was then placed into the anal canal and was advanced to the cecum, which was identified by the ileocecal valve, the appendiceal orifice and the confluence of the taenia. The scope was then slowly withdrawn examining colon thoroughly in all directions, irrigating it of any residual stool. FINDINGS 1. Cecum-1 cm polyp removed cold snare 2. Rectum-5 mm polyp removed with biopsy forceps The patient tolerated the procedure well. They will be discharged once criteria are met. The prep was of good/excellent quality. The withdrawl time was 8 minutes. Specimen(s): other (Cecum and rectum polyps) Complications: none Impression: Colonic polyps Post-procedure Recommendations: Colonoscopy in 5 years Disposition: same day surgery
[2021-08-04 12:35] VITALS: BP 104/56; PULSE 60; RESP 8; O2SAT 94
[2021-08-04 12:40] VITALS: BP 105/58; PULSE 30; RESP 10; O2SAT 95
[2021-08-04 12:45] VITALS: BP 114/63; PULSE 60; RESP 15; TEMP 36.1; O2SAT 95
[2021-08-04 12:58] VITALS: BP 127/50; PULSE 60; RESP 15; O2SAT 98
== END 2021-08-04 12:35 | disposition home or self-care (01) ==
PROVIDERS: PCP Family Medicine; Referring Provider Surgery; Visit Provider Surgery
PROC: 0DJD8ZZ Inspection of Lower Intestinal Tract, Via Natural or Artificial Opening Endoscopic (ICD-10-PCS; CPT 45378; principal; 2021-08-04 12:15)
DX: Z12.11 Encounter for screening for malignant neoplasm of colon (principal); D12.0 Benign neoplasm of cecum; K62.1 Rectal polyp; E11.9 Type 2 diabetes mellitus without complications; I50.9 Heart failure, unspecified; I42.8 Other cardiomyopathies; Z85.038 Personal history of other malignant neoplasm of large intestine; Z95.810 Presence of automatic (implantable) cardiac defibrillator; Z87.891 Personal history of nicotine dependence
CPT/HCPCS: 45385; 45380; 82962; J2250; J2704; J3010

== ENCOUNTER → 2021-09-30 11:50 | Outpatient (CLI) | payer MEDICARE, SELFPAY ==
[2021-03-24 15:00] VITALS: BMI 31.1
[2021-09-30 16:07] LABS: Hemoglobin A1C% w Est Avg Glu 6.7 % (4.0-6.0)
[2021-09-30 16:23] LABS: Alanine Aminotransferase 24 IU/L (<50); Albumin 3.9 g/dL (3.5-5.0); Albumin Globulin Ratio 1.4 (1.0-2.8); Alkaline Phosphatase 90 U/L (38-126); Aspartate Aminotransferase 23 IU/L (17-59); Bilirubin Total 0.8 mg/dL (0.2-1.3); Blood Urea Nitrogen 17 mg/dL (9-20); Calcium 9.2 mg/dL (8.4-10.2); Carbon Dioxide 29 mmol/L (22-32); Chloride 100 mmol/L (98-107); Estimated Glomerular Filt Rate > 60 mL/min (>60); Globulin 2.7 g/dL (1.7-4.1); Glucose 168 mg/dL (80-110); HEMOLYSIS < 15 (0-50); Potassium 3.8 mmol/L (3.4-5.1); Sodium 138 mmol/L (137-145); Total Protein 6.6 g/dL (6.3-8.2)
== END ==
PROVIDERS: PCP Family Medicine; Referring Provider Family Medicine; Visit Provider Family Medicine
DX: R73.03 Prediabetes (principal); E78.2 Mixed hyperlipidemia; I10 Essential (primary) hypertension; I49.9 Cardiac arrhythmia, unspecified
CPT/HCPCS: 36415; 80053; 83036

== ENCOUNTER → 2021-10-16 11:07 | Outpatient (CLI) | payer MEDICARE, SELFPAY ==
[2021-03-24 15:00] VITALS: BMI 31.1
== END ==
PROVIDERS: PCP Family Medicine; Visit Provider Registered Nurse
DX: R35.0 Frequency of micturition (principal)
CPT/HCPCS: 87077; 87086

== ENCOUNTER → 2022-02-23 08:58 | Outpatient (CLI) | payer MEDICARE, SELFPAY ==
[2021-03-24 15:00] VITALS: BMI 31.1
[2022-02-23 11:18] LABS: Hemoglobin A1C% w Est Avg Glu 6.9 % (4.0-6.0)
[2022-02-23 11:20] LABS: Alanine Aminotransferase 23 IU/L (<50); Albumin 3.9 g/dL (3.5-5.0); Albumin Globulin Ratio 1.3 (1.0-2.8); Alkaline Phosphatase 109 U/L (38-126); Aspartate Aminotransferase 21 IU/L (17-59); BUN Creatinine Ratio 15.2 (6-22); Bilirubin Total 0.8 mg/dL (0.2-1.3); Blood Urea Nitrogen 14 mg/dL (9-20); Calcium 8.9 mg/dL (8.4-10.2); Carbon Dioxide 28 mmol/L (22-32); Chloride 100 mmol/L (98-107); Estimated Glomerular Filt Rate > 60 mL/min (>60); Globulin 2.9 g/dL (1.7-4.1); Glucose 139 mg/dL (80-110); HEMOLYSIS < 15 (0-50); Potassium 3.9 mmol/L (3.4-5.1); Sodium 138 mmol/L (137-145); Total Protein 6.8 g/dL (6.3-8.2)
[2022-02-23 11:54] LABS: TSH w/ Reflex to FT4 2.58 uIU/mL (0.47-4.68)
[2022-02-23 11:58] LABS: Add Manual Diff / Slide Review NO; Basophils Absolute Auto 100 /uL (0-100); Eosinophils Absolute Auto 200 /uL (0-450); Eosinophils Percent Auto 2.3 % (2-4); Hematocrit 39.2 % (41-53); Hemoglobin 13.5 g/dL (13.5-17.5); Lymphocytes Absolute Auto 2800 /uL (1100-4500); Lymphocytes Percent Auto 28.8 % (25-40); Mean Corpuscular HGB Conc 34.3 % (30-36); Mean Corpuscular Hemoglobin 32.3 PG (26-34); Mean Corpuscular Volume 94.1 fL (80-100); Monocytes Absolute Auto 800 /uL (0-900); Monocytes Percent Auto 8.4 % (3-14); Neutrophils Absolute Auto 5700 /uL (1500-7000); Neutrophils Percent Auto 59.5 % (50-75); Platelet Count 250 X10^3/uL (150-400); Red Blood Cell Count 4.17 X10^6/uL (4.5-5.9); Red Cell Distribution Width 13.4 % (11.6-14.8); White Blood Cell Count 9.6 X10^3/uL (4.5-11.0)
[2022-02-24 11:14] LABS: Cholesterol 150 mg/dL (140-199); HDL Cholesterol 33 mg/dL (40-60); LDL Cholesterol Calculated 69 mg/dL (<100); Triglycerides 241 mg/dL (35-150)
== END ==
PROVIDERS: PCP Family Medicine; Referring Provider Internal Medicine Cardiovascular Disease; Visit Provider Internal Medicine Cardiovascular Disease
DX: R73.03 Prediabetes (principal); I42.8 Other cardiomyopathies; E78.5 Hyperlipidemia, unspecified; I25.119 Atherosclerotic heart disease of native coronary artery with unspecified angina pectoris; Z13.29 Encounter for screening for other suspected endocrine disorder
CPT/HCPCS: 36415; 80053; 80061; 83036; 84443; 85025

== ENCOUNTER → 2022-05-24 10:47 | Outpatient (CLI) | payer MEDICARE, SELFPAY ==
[2021-03-24 15:00] VITALS: BMI 31.1
[2022-05-24 11:19] LABS: Add Manual Diff / Slide Review NO; Basophils Absolute Auto 100 /uL (0-100); Basophils Percent Auto 1.1 % (0-2); Eosinophils Absolute Auto 100 /uL (0-450); Eosinophils Percent Auto 1.3 % (2-4); Lymphocytes Absolute Auto 2600 /uL (1100-4500); Lymphocytes Percent Auto 27.1 % (25-40); Mean Corpuscular Hemoglobin 32.6 PG (26-34); Mean Corpuscular Volume 93.1 fL (80-100); Monocytes Absolute Auto 800 /uL (0-900); Neutrophils Absolute Auto 6000 /uL (1500-7000); Neutrophils Percent Auto 62.5 % (50-75); Platelet Count 261 X10^3/uL (150-400); Red Cell Distribution Width 13.8 % (11.6-14.8); White Blood Cell Count 9.6 X10^3/uL (4.5-11.0)
[2022-05-24 11:30] LABS: Alanine Aminotransferase 25 IU/L (<50); Albumin 3.8 g/dL (3.5-5.0); Albumin Globulin Ratio 1.2 (1.0-2.8); Alkaline Phosphatase 85 U/L (38-126); Aspartate Aminotransferase 23 IU/L (17-59); BUN Creatinine Ratio 16.2 (6-22); Bilirubin Total 0.7 mg/dL (0.2-1.3); Blood Urea Nitrogen 17 mg/dL (9-20); Calcium 8.7 mg/dL (8.4-10.2); Carbon Dioxide 26 mmol/L (22-32); Chloride 104 mmol/L (98-107); Estimated Glomerular Filt Rate > 60 mL/min (>60); Globulin 3.2 g/dL (1.7-4.1); Glucose 146 mg/dL (80-110); HEMOLYSIS < 15 (0-50); Sodium 139 mmol/L (137-145)
[2022-05-24 12:18] LABS: Vitamin B12 601 pg/mL (239-931)
[2022-05-24 12:27] LABS: TSH w/ Reflex to FT4 1.79 uIU/mL (0.47-4.68)
[2022-05-25 08:52] LABS: x Labcorp Estim. Avg Glu (eAG) 134 mg/dL (.); x Labcorp Hemoglobin A1c 6.3 % (4.8-5.6)
== END ==
PROVIDERS: PCP Family Medicine; Referring Provider Family Medicine; Visit Provider Family Medicine
DX: E78.2 Mixed hyperlipidemia (principal); I10 Essential (primary) hypertension; N13.8 Other obstructive and reflux uropathy; N40.1 Benign prostatic hyperplasia with lower urinary tract symptoms; R73.03 Prediabetes
CPT/HCPCS: 36415; 80053; 82607; 83036; 84443; 85025

== ENCOUNTER → 2022-06-17 21:36 | Outpatient (ROUT) | payer MEDICARE, SELFPAY ==
[2021-03-24 15:00] VITALS: BMI 31.1
[2022-06-17 21:45] LABS: Appearance Urine UA CLEAR; Bilirubin Urine UA NEGATIVE (NEGATIVE); Color Urine UA YELLOW; Glucose Urine UA 3+ g/dL (Negative); Ketones Urine UA NEGATIVE (NEGATIVE); Leukocyte Esterase Urine UA NEGATIVE (NEGATIVE); Nitrite Urine UA NEGATIVE (Negative); Occult Blood Urine UA NEGATIVE (Negative); Protein Urine UA NEGATIVE (Negative); Specific Gravity Urine UA 1.015 (1.000-1.035); Urobilinogen Urine UA 0.2 E.U./dL (0.2)
[2022-06-17 21:57] LABS: Bacteria Urine None Seen; Culture Indicated Urine Cult Not Indicated; RBC Urine 0-1/HPF (0-5/HPF); Squamous Epithelial Cell Urine 0-1 /HPF (0-5/HPF); WBC Urine 0-1/HPF (0-5/HPF)
== END ==
PROVIDERS: PCP Family Medicine; Visit Provider Family Medicine
DX: Z13.9 Encounter for screening, unspecified (principal)
CPT/HCPCS: 81001

== ENCOUNTER → 2022-11-11 10:35 | Outpatient (CLI) | payer MEDICARE, SELFPAY ==
[2021-03-24 15:00] VITALS: BMI 31.1
[2022-11-11 13:23] LABS: Folate > 20.0 ng/mL (2.76-20.0); Vitamin B12 816 pg/mL (239-931)
[2022-11-14 11:14] LABS: Albumin 3.1 g/dL (2.9-4.4); Alpha-1-Globulin 0.2 g/dL (0.0-0.4); Alpha-2-Globulin 0.8 g/dL (0.4-1.0); Gamma Globulin 1.1 g/dL (0.4-1.8); Globulin Total 3.2 g/dL (2.2-3.9); Protein, Total 6.3 g/dL (6.0-8.5)
[2022-11-15 05:49] LABS: Methylmalonic Acid,Serum 202 nmol/L (0-378)
== END ==
PROVIDERS: PCP Family Medicine; Referring Provider Psychiatry & Neurology Neuromuscular Medicine; Visit Provider Psychiatry & Neurology Neuromuscular Medicine
DX: G62.9 Polyneuropathy, unspecified (principal)
CPT/HCPCS: 36415; 82607; 82746; 83921; 84155; 84165

== ENCOUNTER → 2022-11-18 09:49 | Outpatient (CLI) | payer MEDICARE, SELFPAY ==
[2021-03-24 15:00] VITALS: BMI 31.1
[2022-11-18 12:31] LABS: Cholesterol 141 mg/dL (140-199); HDL Cholesterol 36 mg/dL (40-60); LDL Cholesterol Calculated 70 mg/dL (<100); Triglycerides 173 mg/dL (35-150)
== END ==
PROVIDERS: Family Provider Family Medicine; PCP Family Medicine; Referring Provider Internal Medicine Cardiovascular Disease; Visit Provider Internal Medicine Cardiovascular Disease
DX: E78.5 Hyperlipidemia, unspecified (principal)
CPT/HCPCS: 36415; 80061

== ENCOUNTER → 2023-03-27 10:30 | Outpatient (CLI) | payer MEDICARE, SELFPAY ==
[2021-03-24 15:00] VITALS: BMI 31.1
[2023-03-27 11:09] LABS: Add Manual Diff / Slide Review NO; Basophils Absolute Auto 100 /uL (0-100); Basophils Percent Auto 1.5 % (0-2); Eosinophils Absolute Auto 100 /uL (0-450); Hematocrit 42.1 % (41-53); Hemoglobin 14.8 g/dL (13.5-17.5); Lymphocytes Absolute Auto 2800 /uL (1100-4500); Lymphocytes Percent Auto 32.7 % (25-40); Mean Corpuscular HGB Conc 35.2 % (30-36); Mean Corpuscular Hemoglobin 32.6 PG (26-34); Mean Corpuscular Volume 92.7 fL (80-100); Monocytes Absolute Auto 800 /uL (0-900); Monocytes Percent Auto 9.3 % (3-14); Neutrophils Absolute Auto 4700 /uL (1500-7000); Neutrophils Percent Auto 55.5 % (50-75); Platelet Count 217 X10^3/uL (150-400); Red Blood Cell Count 4.54 X10^6/uL (4.5-5.9); Red Cell Distribution Width 13.9 % (11.6-14.8); White Blood Cell Count 8.4 X10^3/uL (4.5-11.0)
[2023-03-27 12:14] LABS: Alanine Aminotransferase 29 IU/L (<50); Albumin 3.6 g/dL (3.5-5.0); Albumin Globulin Ratio 1.3 (1.0-2.8); Alkaline Phosphatase 86 U/L (38-126); Aspartate Aminotransferase 25 IU/L (17-59); BUN Creatinine Ratio 17.2 (6-22); Bilirubin Total 0.9 mg/dL (0.2-1.3); Blood Urea Nitrogen 16 mg/dL (9-20); Calcium 8.9 mg/dL (8.4-10.2); Carbon Dioxide 25 mmol/L (22-32); Chloride 105 mmol/L (98-107); Cholesterol 156 mg/dL (140-199); Estimated Glomerular Filt Rate > 60 mL/min (>60); Globulin 2.8 g/dL (1.7-4.1); Glucose 135 mg/dL (80-110); HDL Cholesterol 39 mg/dL (40-60); HEMOLYSIS < 15 (0-50); LDL Cholesterol Calculated 79 mg/dL (<100); Potassium 3.8 mmol/L (3.4-5.1); Sodium 138 mmol/L (137-145); Total Protein 6.4 g/dL (6.3-8.2); Triglycerides 189 mg/dL (35-150)
[2023-03-27 12:46] LABS: TSH w/ Reflex to FT4 2.63 uIU/mL (0.47-4.68)
== END ==
LOC: LAB 10:33
PROVIDERS: Family Provider Family Medicine; PCP Family Medicine; Referring Provider Family Medicine; Visit Provider Family Medicine
DX: R73.03 Prediabetes (principal); E78.2 Mixed hyperlipidemia; I10 Essential (primary) hypertension; Z79.899 Other long term (current) drug therapy
CPT/HCPCS: 36415; 80053; 80061; 84443; 85025

== ENCOUNTER 2023-04-11 12:15 | Outpatient (RCR) | payer MEDICARE, SELFPAY ==
[2021-03-24 15:00] VITALS: BMI 31.1
--- NOTE | 2022-11-29 11:41 | PT.OIE ---
Current Diagnoses Polyneuropathy, unspecified (11/29/22) Unspecified abnormalities of gait and mobility (11/29/22) Past Medical History (Last Reviewed 07/26/22 @ 14:06 by Ryan Rice DO) Adhesive capsulitis AICD (automatic cardioverter/defibrillator) present (~07/05/13) Atopic dermatitis BPH (benign prostatic hyperplasia) BPH with urinary obstruction CHF (congestive heart failure) Colon cancer Colon polyps Depression Diabetes mellitus Diarrhea Edema Erectile dysfunction Facial trauma Hearing loss History of echocardiogram (~06/2016) History of fracture as a child History of left heart catheterization (~11/2015) History of syncope Hyperlipidemia Hypertension Mitral regurgitation 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 Obese Pacemaker Partial tear of right rotator cuff Peripheral neuropathy Prediabetes Retention of urine Retinal artery occlusion Right shoulder pain Seborrheic keratosis Sensory ataxia Tear meniscus knee V-tach Vertigo Past Surgical History (Last Reviewed 07/26/22 @ 14:06 by Ryan Rice DO) History of colonoscopy with polypectomy History of prostate surgery History of tonsillectomy History of umbilical hernia repair Implantable cardioverter-defibrillator (ICD) in situ Presence of cardiac pacemaker S/P partial colectomy Visit Care Team Role Provider Type Ryan Rice DO Family Provider Physician Primary Care Provider Specialty: Family Practice Address: [address] [place] [address], [id number] Email: [email or web address] Tremayne Perez MD Attending Provider Non-Staff Referring Provider Specialty: Neurology Psychiatry Address: [address] [place] [address], [address], [place], [address] Email: Physical Therapy Initial Evaluation PT-OP-A Visit Information Start: 11/29/22 10:22 Freq: Status: Active Protocol: Document 11/29/22 11:28 ED (Rec: 11/29/22 11:41 ED [id number]) Out-Patient Physical Therapy Visit Information Visit Information Visit Type Initial Evaluation Visit Note 02/22 Visit Start Time 10:45 Visit Stop Time 11:30 Total Visit Minutes 45 Visit Number 1 Evaluation Information Evaluation Date 11/29/22 PT-OP-B Current Condition Start: 11/29/22 10:22 Freq: Status: Active Protocol: Document 11/29/22 11:28 ED (Rec: 11/29/22 11:41 ED [id number]) Current Condition History of Current Condition Onset Date 2013 Current Complaints balance History of Current Condition Pt states that in May of 2013 he realized that he had bad balance. He states he does most of his locomotion via manual w/c. He lives on the second floor of an [facility] which has an elevator. He states that there is no need for him to walk there b/c he can just use his w/c. He states that he walks to get to his car and out of his car but not much else. Pt has been using the w/ c since about 2013. He will also use a walking stick. He owns a 4WW but does not use that often. He reports 2-3 falls in the past year. He states that sometimes his body will just collapse and he does not know why. 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 Treatment Goals Patient/Caregiver Goals Walk 1/4 of a mile PT-OP-C Subjective Start: 11/29/22 10:22 Freq: Status: Active Protocol: Document 11/29/22 11:28 ED (Rec: 11/29/22 11:41 ED [id number]) Patient Questionnaires ABC- Activity Specific Balance Confidence Scale ABC Score 48.8 % ABC Functional Impairment 40 to <60% Impaired (Score 41- 60) PT-OP-D Balance Start: 11/29/22 10:22 Freq: Status: Active Protocol: Document 11/29/22 11:28 ED (Rec: 11/29/22 11:41 ED [id number]) Balance Tests Single Limb Standing Single Limb- Right unable Single Limb- Left unable Semi-Tandem Standing Semi-Tandem Standing Balance 10 seconds Tandem Tandem Standing unable PT-OP-E Functional Tests Start: 11/29/22 10:22 Freq: Status: Active Protocol: Document 11/29/22 11:28 ED (Rec: 11/29/22 11:41 ED [id number]) Functional Tests Five Times Sit to Stand Test Score unable Comments unable to stand from standard chair height (18'') Timed Up and Go (TUG) Score 18 seconds Comments used walking stick TUG Impairment Rating 80 to <100% Impaired (Score 18 -19) Other SPPB Name of Test Short Physical Performance Battery Score 5/12 Comment 1, 1, 0 ; 5xSTS: 0 (unable) ; speed: 3 (5 seconds (stick)) PT-OP-T Assessment and Plan Start: 11/29/22 10:22 Freq: Status: Active Protocol: Document 11/29/22 11:28 ED (Rec: 11/29/22 11:41 ED [id number]) Physical Therapy Assessment Rehab Potential Rehabilitation Potential Fair Evaluation Complexity Number of Personal Factors/Comorbidities 1-2 Number of Body Systems Impaired 3 Impairments Impairments Activity Tolerance,Balance, Coordination,Functional Activities,Functional Mobility ,Gait,Strength,Transfers Other Concerns Fall Risk yes Goals stairs Impairment stairs Group Home Goal (LTG) Pt will be able to negotiate 5 steps using single railing SBA. LTG Duration 6-8 weeks ambulation Impairment ambulation Short Term Goal (STG) Pt will be able to ambulate > 200 feet using walking stick SBA. STG Duration 3 weeks Vinegar Maker Goal (LTG) Pt will be able to ambulate > 500 feet using walking stick or 4WW SBA. LTG Duration 6-8 weeks SPPB Impairment SPPB Impairment IE: 5/12 Group Home Goal (LTG) Pt will improve SPPB by 2 points to a score of >7/12. ( MCID is 1 point improvement) LTG Duration 6-8 weeks 5x STS Impairment 5x STS Impairment IE: Unable to complete Short Term Goal (STG) Pt will be able to perform 5 sit<>stands from 22 inch height c/o UE assist. STG Duration 3 weeks Group Home Goal (LTG) Pt will be able to perform 5 sit<>stands from 20 inch height c/o UE assist. LTG Duration 6-8 weeks Assessment Summary Assessment Pt reported to PT for decreased balance and decreased LE strength. Pt performed various functional tests to establish baseline measurements of LE strength and balance. Pt performed Short Physical Performance Battery (SPPB) and recorded a score of 5/12; a score <10/12 indicates risk of mobility disability. Pt was unable to complete 5x sit to stand test indicicating significant loss of LE strength. Pt performed Timed Up and Go test in a time of 18 seconds using walking stick; a score <11.4 seconds indicates high fall risk. Pt is a fall risk and will require CGA for most upright exercises. PT will focus on LE strengthening and functional balance exercises within patient capabilities in order to improve his overall functional mobility and decrease fall risk. Physical Therapy Plan Frequency and Duration Frequency of Treatment 2x/Week Duration of treatment (weeks) 10 Plan of Care Start Date 11/29/22 Plan of Care End Date 02/27/23 Therapeutic Interventions Therapeutic Interventions Balance Training,Coordination Training,Gait Training,Home Exercise Program,Joint Mobilizations,Manual Therapy, Neuromuscular Re-education, Orthotic/Prosthetic Management ,Patient/Caregiver Education, Self-Care/Home Management,Soft Tissue Mobilization,Taping, Therapeutic Activities, Therapeutic Exercises Next Visit Focus/Plan Next Note Type Treatment Note Next Visit Plan 2MWT; 4 square step over; NuStep (high resistance), STS, walk, row
--- NOTE | 2022-11-29 11:41 | PT.OPPOC ---
Physical, Occupational & Speech Therapy At [facility] Current Diagnoses Polyneuropathy, unspecified (11/29/22) Unspecified abnormalities of gait and mobility (11/29/22) Visit Care Team Role Provider Type Ryan Rice DO Family Provider Physician Primary Care Provider Specialty: Family Practice Address: [address] [place] [address], [id number] Email: [email or web address] Tremayne Perez MD Attending Provider Non-Staff Referring Provider Specialty: Neurology Psychiatry Address: [address] [place] [address], [address], [place], [address] Email: Plan Of Care PT-OP-T Assessment and Plan Start: 11/29/22 10:22 Freq: Status: Active Protocol: Document 11/29/22 11:28 ED (Rec: 11/29/22 11:41 ED [id number]) Physical Therapy Assessment Rehab Potential Rehabilitation Potential Fair Evaluation Complexity Number of Personal Factors/Comorbidities 1-2 Number of Body Systems Impaired 3 Impairments Impairments Activity Tolerance,Balance, Coordination,Functional Activities,Functional Mobility ,Gait,Strength,Transfers Other Concerns Fall Risk yes Goals stairs Impairment stairs Fpc Goal (LTG) Pt will be able to negotiate 5 steps using single railing SBA. LTG Duration 6-8 weeks ambulation Impairment ambulation Short Term Goal (STG) Pt will be able to ambulate > 200 feet using walking stick SBA. STG Duration 3 weeks Fpc Goal (LTG) Pt will be able to ambulate > 500 feet using walking stick or 4WW SBA. LTG Duration 6-8 weeks SPPB Impairment SPPB Impairment IE: 5/12 Fpc Goal (LTG) Pt will improve SPPB by 2 points to a score of >7/12. ( MCID is 1 point improvement) LTG Duration 6-8 weeks 5x STS Impairment 5x STS Impairment IE: Unable to complete Short Term Goal (STG) Pt will be able to perform 5 sit<>stands from 22 inch height c/o UE assist. STG Duration 3 weeks Drug Room Clerk Goal (LTG) Pt will be able to perform 5 sit<>stands from 20 inch height c/o UE assist. LTG Duration 6-8 weeks Assessment Summary Assessment Pt reported to PT for decreased balance and decreased LE strength. Pt performed various functional tests to establish baseline measurements of LE strength and balance. Pt performed Short Physical Performance Battery (SPPB) and recorded a score of 5/12; a score <10/12 indicates risk of mobility disability. Pt was unable to complete 5x sit to stand test indicicating significant loss of LE strength. Pt performed Timed Up and Go test in a time of 18 seconds using walking stick; a score <11.4 seconds indicates high fall risk. Pt is a fall risk and will require CGA for most upright exercises. PT will focus on LE strengthening and functional balance exercises within patient capabilities in order to improve his overall functional mobility and decrease fall risk. Physical Therapy Plan Frequency and Duration Frequency of Treatment 2x/Week Duration of treatment (weeks) 10 Plan of Care Start Date 11/29/22 Plan of Care End Date 02/27/23 Therapeutic Interventions Therapeutic Interventions Balance Training,Coordination Training,Gait Training,Home Exercise Program,Joint Mobilizations,Manual Therapy, Neuromuscular Re-education, Orthotic/Prosthetic Management ,Patient/Caregiver Education, Self-Care/Home Management,Soft Tissue Mobilization,Taping, Therapeutic Activities, Therapeutic Exercises Next Visit Focus/Plan Next Note Type Treatment Note Next Visit Plan 2MWT; 4 square step over; NuStep (high resistance), STS, walk, row Plan of Care Dates Plan of Care Start Date 11/29/22 Plan of Care End Date 02/27/23 Electronically Signed by: Jewel Anthony, PT 11/29/22 9167 If you are in agreement with this Plan of Care, please return a signed and dated copy. I have reviewed this Plan of Care and certify that the skilled therapy services above are required to meet the patient?s needs. Physician Signature Date Printed Name and Credentials Clinical Instructor Signature Printed Name and Credentials
--- NOTE | 2022-12-01 12:10 | PT.OTN ---
Current Diagnoses Polyneuropathy, unspecified (12/01/22) Unspecified abnormalities of gait and mobility (12/01/22) Physical Therapy Treatment Note PT-OP-A Visit Information Start: 11/29/22 10: Freq: Status: Active Protocol: Document 12/01/22 12:03 ED (Rec: 12/01/22 12:10 ED [id number]) Out-Patient Physical Therapy Visit Information Visit Information Visit Type Treatment Note Visit Note 03/25 Visit Start Time 11:30 Visit Stop Time 12:10 Total Visit Minutes 40 Visit Number 2 PT-OP-B Current Condition Start: 11/29/22 10: Freq: Status: Active Protocol: Document 11/29/22 11:28 ED (Rec: 11/29/22 11:41 ED [id number]) Current Condition History of Current Condition Onset Date 2013 Current Complaints balance History of Current Condition Pt states that in May of 2013 he realized that he had bad balance. He states he does most of his locomotion via manual w/c. He lives on the second floor of an [facility] which has an elevator. He states that there is no need for him to walk there b/c he can just use his w/c. He states that he walks to get to his car and out of his car but not much else. Pt has been using the w/ c since about 2013. He will also use a walking stick. He owns a 4WW but does not use that often. He reports 2-3 falls in the past year. He states that sometimes his body will just collapse and he does not know why. 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 Treatment Goals Patient/Caregiver Goals Walk 1/4 of a mile PT-OP-C Subjective Start: 11/29/22 10: Freq: Status: Active Protocol: Document 12/01/22 12:03 ED (Rec: 12/01/22 12:10 ED [id number]) OP-PT Subjective Patient Comments Patient Comments Pt states that he has his reservations about improving his balance but is willing to give it a try. PT-OP-D Balance Start: 11/29/22 10:22 Freq: Status: Active Protocol: Document 11/29/22 11:28 ED (Rec: 11/29/22 11:41 ED [id number]) Balance Tests Single Limb Standing Single Limb- Right unable Single Limb- Left unable Semi-Tandem Standing Semi-Tandem Standing Balance 10 seconds Tandem Tandem Standing unable PT-OP-E Functional Tests Start: 11/29/22 10:22 Freq: Status: Active Protocol: Document 12/01/22 12:03 ED (Rec: 12/01/22 12:10 ED [id number]) Functional Tests 6 Minute Walk Test Distance 460 feet Device Used 4WW Comments required 1 seated rest break Four Step Square Test Score 42 Comments no AD; CGA - mod A for balance correction PT-OP-Q Treatments Start: 11/29/22 10:22 Freq: Status: Active Protocol: Document 12/01/22 12:03 ED (Rec: 12/01/22 12:10 ED [id number]) Therapeutic Activity Therapeutic Activity SQUAT Name sit<>stand Reps/Minutes 4x10 Comments 2x10 with 10# weight PT-OP-T Assessment and Plan Start: 11/29/22 10:22 Freq: Status: Active Protocol: Document 12/01/22 12:03 ED (Rec: 12/01/22 12:10 ED [id number]) Physical Therapy Assessment Goals stairs Impairment stairs Assisted Goal (LTG) Pt will be able to negotiate 5 steps using single railing SBA. LTG Duration 6-8 weeks ambulation Impairment ambulation Short Term Goal (STG) Pt will be able to ambulate > 200 feet using walking stick SBA. STG Duration 3 weeks Sr. Manager Goal (LTG) Pt will be able to ambulate > 500 feet using walking stick or 4WW SBA. LTG Duration 6-8 weeks SPPB Impairment SPPB Impairment IE: 5/12 Sr. Manager Goal (LTG) Pt will improve SPPB by 2 points to a score of >7/12. ( MCID is 1 point improvement) LTG Duration 6-8 weeks 5x STS Impairment 5x STS Impairment IE: Unable to complete Short Term Goal (STG) Pt will be able to perform 5 sit<>stands from 22 inch height c/o UE assist. STG Duration 3 weeks Sr. Manager Goal (LTG) Pt will be able to perform 5 sit<>stands from 20 inch height c/o UE assist. LTG Duration 6-8 weeks Assessment Summary Assessment Pt performed 6 minute walk test and 4 square step over test for additional baseline measurements of activity tolerance and balance. Session then focused on LE strengthening and balance via repeated sit<>stands. Pt performed 4x10 sit<>stands from elevated surface; 2 sets were completed with 10# weight . Physical Therapy Plan Frequency and Duration Frequency of Treatment 2x/Week Duration of treatment (weeks) 10 Plan of Care Start Date 11/29/22 Plan of Care End Date 02/27/23 Therapeutic Interventions Therapeutic Interventions Balance Training,Coordination Training,Gait Training,Home Exercise Program,Joint Mobilizations,Manual Therapy, Neuromuscular Re-education, Orthotic/Prosthetic Management ,Patient/Caregiver Education, Self-Care/Home Management,Soft Tissue Mobilization,Taping, Therapeutic Activities, Therapeutic Exercises Next Visit Focus/Plan Next Note Type Treatment Note Next Visit Plan NuStep (high resistance), STS, walk, row
--- NOTE | 2022-12-06 11:30 | PT.OTN ---
Current Diagnoses Polyneuropathy, unspecified (12/06/22) Unspecified abnormalities of gait and mobility (12/06/22) Physical Therapy Treatment Note PT-OP-A Visit Information Start: 11/29/22 10:22 Freq: Status: Active Protocol: Document 12/06/22 11:27 ED (Rec: 12/06/22 11:30 ED [id number]) Out-Patient Physical Therapy Visit Information Visit Information Visit Type Treatment Note Visit Note 04/22 Visit Start Time 10:45 Visit Stop Time 11:30 Total Visit Minutes 45 Visit Number 3 PT-OP-B Current Condition Start: 11/29/22 10:22 Freq: Status: Active Protocol: Document 11/29/22 11:28 ED (Rec: 11/29/22 11:41 ED [id number]) Current Condition History of Current Condition Onset Date 2013 Current Complaints balance History of Current Condition Pt states that in May of 2013 he realized that he had bad balance. He states he does most of his locomotion via manual w/c. He lives on the second floor of an [facility] which has an elevator. He states that there is no need for him to walk there b/c he can just use his w/c. He states that he walks to get to his car and out of his car but not much else. Pt has been using the w/ c since about 2013. He will also use a walking stick. He owns a 4WW but does not use that often. He reports 2-3 falls in the past year. He states that sometimes his body will just collapse and he does not know why. 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 Treatment Goals Patient/Caregiver Goals Walk 1/4 of a mile PT-OP-C Subjective Start: 11/29/22 10: Freq: Status: Active Protocol: Document 12/06/22 11:27 ED (Rec: 12/06/22 11:30 ED [id number]) OP-PT Subjective Patient Comments Patient Comments Pt states he uses the NuStep at his [employer] for about 10 minutes a few times/week. PT-OP-D Balance Start: 11/29/22 10:22 Freq: Status: Active Protocol: Document 11/29/22 11:28 ED (Rec: 11/29/22 11:41 ED [id number]) Balance Tests Single Limb Standing Single Limb- Right unable Single Limb- Left unable Semi-Tandem Standing Semi-Tandem Standing Balance 10 seconds Tandem Tandem Standing unable PT-OP-E Functional Tests Start: 11/29/22 10:22 Freq: Status: Active Protocol: Document 12/01/22 12:03 ED (Rec: 12/01/22 12:10 ED [id number]) Functional Tests 6 Minute Walk Test Distance 460 feet Device Used 4WW Comments required 1 seated rest break Four Step Square Test Score 42 Comments no AD; CGA - mod A for balance correction PT-OP-Q Treatments Start: 11/29/22 10:22 Freq: Status: Active Protocol: Document 12/06/22 11:27 ED (Rec: 12/06/22 11:30 ED [id number]) Cardio Equipment Recumbent Elliptical (Biodex) Duration (Minutes) 15 Resistance 8 Therapeutic Activity Therapeutic Activity SQUAT Name sit<>stand Reps/Minutes 5x10 Comments 2x10 with 5# weight Neuro Re-Education Treatment Balance Activities standing row Details standing row Equipment cable column Reps/Duration 2x10 Comments cued for erect posture as he was flexing at hip and posterior shifting his weight PT-OP-T Assessment and Plan Start: 11/29/22 10:22 Freq: Status: Active Protocol: Document 12/06/22 11:27 ED (Rec: 12/06/22 11:30 ED [id number]) Physical Therapy Assessment Goals stairs Impairment stairs Manager Water Goal (LTG) Pt will be able to negotiate 5 steps using single railing SBA. LTG Duration 6-8 weeks ambulation Impairment ambulation Short Term Goal (STG) Pt will be able to ambulate > 200 feet using walking stick SBA. STG Duration 3 weeks Manager Water Goal (LTG) Pt will be able to ambulate > 500 feet using walking stick or 4WW SBA. LTG Duration 6-8 weeks SPPB Impairment SPPB Impairment IE: 5/12 Penitentiary Goal (LTG) Pt will improve SPPB by 2 points to a score of >7/12. ( MCID is 1 point improvement) LTG Duration 6-8 weeks 5x STS Impairment 5x STS Impairment IE: Unable to complete Short Term Goal (STG) Pt will be able to perform 5 sit<>stands from 22 inch height c/o UE assist. STG Duration 3 weeks Penitentiary Goal (LTG) Pt will be able to perform 5 sit<>stands from 20 inch height c/o UE assist. LTG Duration 6-8 weeks Assessment Summary Assessment Pt continues to have difficulty with sit<>stands c/ o UE assist; pt has been performing them from elevated surface to improve his ability to perform multiple repetitions successfully. Incorporated standing rows as well d/t the varying CoG during the exercise. Pt struggling with forward weight shift; tends to retropulse during failed repetitions. Physical Therapy Plan Frequency and Duration Frequency of Treatment 2x/Week Duration of treatment (weeks) 10 Plan of Care Start Date 11/29/22 Plan of Care End Date 02/27/23 Therapeutic Interventions Therapeutic Interventions Balance Training,Coordination Training,Gait Training,Home Exercise Program,Joint Mobilizations,Manual Therapy, Neuromuscular Re-education, Orthotic/Prosthetic Management ,Patient/Caregiver Education, Self-Care/Home Management,Soft Tissue Mobilization,Taping, Therapeutic Activities, Therapeutic Exercises Next Visit Focus/Plan Next Note Type Treatment Note Next Visit Plan NuStep (high resistance), STS, walk, row
--- NOTE | 2022-12-09 13:30 | PT.OTN ---
Current Diagnoses Polyneuropathy, unspecified (12/09/22) Unspecified abnormalities of gait and mobility (12/09/22) Physical Therapy Treatment Note PT-OP-A Visit Information Start: 11/29/22 10: Freq: Status: Active Protocol: Document 12/09/22 12:48 SP (Rec: 12/09/22 13:34 SP [id number]) Out-Patient Physical Therapy Visit Information Visit Information Visit Type Treatment Note Visit Note 05/23 Visit Start Time 12:48 Visit Stop Time 13:30 Total Visit Minutes 43 Visit Number 4 Evaluation Information Evaluation Date 11/29/22 PT-OP-B Current Condition Start: 11/29/22 10: Freq: Status: Active Protocol: Document 11/29/22 11:28 ED (Rec: 11/29/22 11:41 ED [id number]) Current Condition History of Current Condition Onset Date 2013 Current Complaints balance History of Current Condition Pt states that in May of 2013 he realized that he had bad balance. He states he does most of his locomotion via manual w/c. He lives on the second floor of an [facility] which has an elevator. He states that there is no need for him to walk there b/c he can just use his w/c. He states that he walks to get to his car and out of his car but not much else. Pt has been using the w/ c since about 2013. He will also use a walking stick. He owns a 4WW but does not use that often. He reports 2-3 falls in the past year. He states that sometimes his body will just collapse and he does not know why. 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 Treatment Goals Patient/Caregiver Goals Walk 1/4 of a mile PT-OP-C Subjective Start: 11/29/22 10: Freq: Status: Active Protocol: Document 12/09/22 12:48 SP (Rec: 12/09/22 13:34 SP [id number]) OP-PT Subjective Patient Comments Patient Comments Pt reports didn't ride the Nustep yesterday, usually uses in the evening. He states used to come in past for dizziness, comes and goes but not when transfers only at times when upright walking. PT-OP-D Balance Start: 11/29/22 10:22 Freq: Status: Active Protocol: Document 11/29/22 11:28 ED (Rec: 11/29/22 11:41 ED [id number]) Balance Tests Single Limb Standing Single Limb- Right unable Single Limb- Left unable Semi-Tandem Standing Semi-Tandem Standing Balance 10 seconds Tandem Tandem Standing unable PT-OP-E Functional Tests Start: 11/29/22 10:22 Freq: Status: Active Protocol: Document 12/01/22 12:03 ED (Rec: 12/01/22 12:10 ED [id number]) Functional Tests 6 Minute Walk Test Distance 460 feet Device Used 4WW Comments required 1 seated rest break Four Step Square Test Score 42 Comments no AD; CGA - mod A for balance correction PT-OP-Q Treatments Start: 11/29/22 10:22 Freq: Status: Active Protocol: Document 12/09/22 12:48 SP (Rec: 12/09/22 13:34 SP [id number]) Cardio Equipment Recumbent Elliptical (Biodex) Duration (Minutes) 15 Resistance 8 Seat Position 11 Other LEs only and BUEs/BLEs when tired, 30-40RPM, Gym Equipment Shuttle Recovery Unilateral Squats Resistance 37# (old band) Shuttle Recovery Platform Stable Reps/Time 2x5 L, x10 R reps Bilateral Squats Details cued eccentric control Resistance 75#> 62# (2 new bands) Shuttle Recovery Platform Stable Reps/Time 2x15 reps Therapeutic Activity Therapeutic Activity transfers Name stand step pivot transfers (wc <>biodex, wc<> shuttle recovery) Reps/Minutes 4 Comments redirected use of reaching self support on opposite surface transferring to vs pulling/OUTSIDE SALES MANAGER from therapist for increase self stability safety [employer]. SQUAT Name sit<>stand Reps/Minutes mesh chair + blue foam (20 height) Comments 2x10 with 5# weight in BUE cued full ext, hip hinge slow decline. Gait Training Gait Activity trek pole Description future appt- states uses at home short distances Neuro Re-Education Treatment Balance Activities step taps, step up/back down Equipment 1 UE support step taps, step up/back down light BUE support Reps/Duration x10 each Comments Cued TKE stance LE, soft stepping, taller posturing. side stepping Surface CGA (gait belt for safety) Equipment in //bars, no UE support Reps/Duration 10 ft x3 laps before needed sit rest Comments cued taller posturing, slower pacing, increase foot clearance. PT-OP-T Assessment and Plan Start: 11/29/22 10:22 Freq: Status: Active Protocol: Document 12/09/22 12:48 SP (Rec: 12/09/22 13:34 SP [id number]) Physical Therapy Assessment Goals stairs Impairment stairs Correction Goal (LTG) Pt will be able to negotiate 5 steps using single railing SBA. LTG Duration 6-8 weeks ambulation Impairment ambulation Short Term Goal (STG) Pt will be able to ambulate > 200 feet using walking stick SBA. STG Duration 3 weeks Bulk Mail Clerk Goal (LTG) Pt will be able to ambulate > 500 feet using walking stick or 4WW SBA. LTG Duration 6-8 weeks SPPB Impairment SPPB Impairment IE: 06/24 Bulk Mail Clerk Goal (LTG) Pt will improve SPPB by 2 points to a score of >7/12. ( MCID is 1 point improvement) LTG Duration 6-8 weeks 5x STS Impairment 5x STS Impairment IE: Unable to complete Short Term Goal (STG) Pt will be able to perform 5 sit<>stands from 22 inch height c/o UE assist. STG Duration 3 weeks Correction Goal (LTG) Pt will be able to perform 5 sit<>stands from 20 inch height c/o UE assist. LTG Duration 6-8 weeks Assessment Summary Assessment Pt responded well to ther ex today, able to complete STS from mesh chair +blue foam (20 height) without UE spport while holding 5# DB in BUEs. CGA/MIn A descend with extra time spent cues/performance full stand glut fac and hip hinge forward and knee flexion slower descend sit in chair safely and improve LE strengthening. PEDIATRIC PSYCHIATRIST redirects pt to use reach across opposite surface during stand step pivot transfers vs holding therapist for safety and self I at [facility]. Pt improved standing tolerance c/ use 1 UE on //bars needed, able to side step without UE support 2 laps before need sit rest recovery. Physical Therapy Plan Frequency and Duration Frequency of Treatment 2x/Week Duration of treatment (weeks) 10 Plan of Care Start Date 11/29/22 Plan of Care End Date 02/27/23 Therapeutic Interventions Therapeutic Interventions Balance Training,Coordination Training,Gait Training,Home Exercise Program,Joint Mobilizations,Manual Therapy, Neuromuscular Re-education, Orthotic/Prosthetic Management ,Patient/Caregiver Education, Self-Care/Home Management,Soft Tissue Mobilization,Taping, Therapeutic Activities, Therapeutic Exercises Next Visit Focus/Plan Next Note Type Treatment Note Next Visit Plan Ask response to increased standing activities last tx. POC: NuStep (high resistance), STS, walk, row, standing step activities //bars
--- NOTE | 2022-12-14 16:35 | PT.OTN ---
Current Diagnoses Polyneuropathy, unspecified (12/14/22) Unspecified abnormalities of gait and mobility (12/14/22) Physical Therapy Treatment Note PT-OP-A Visit Information Start: 11/29/22 10: Freq: Status: Active Protocol: Document 12/14/22 16:31 ED (Rec: 12/14/22 16:35 ED [id number]) Out-Patient Physical Therapy Visit Information Visit Information Visit Type Treatment Note Visit Note 06/22 Visit Start Time 13:55 Visit Stop Time 14:35 Total Visit Minutes 40 Visit Number 5 PT-OP-B Current Condition Start: 11/29/22 10: Freq: Status: Active Protocol: Document 11/29/22 11:28 ED (Rec: 11/29/22 11:41 ED [id number]) Current Condition History of Current Condition Onset Date 2013 Current Complaints balance History of Current Condition Pt states that in May of 2013 he realized that he had bad balance. He states he does most of his locomotion via manual w/c. He lives on the second floor of an [facility] which has an elevator. He states that there is no need for him to walk there b/c he can just use his w/c. He states that he walks to get to his car and out of his car but not much else. Pt has been using the w/ c since about 2013. He will also use a walking stick. He owns a 4WW but does not use that often. He reports 2-3 falls in the past year. He states that sometimes his body will just collapse and he does not know why. 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 Treatment Goals Patient/Caregiver Goals Walk 1/4 of a mile PT-OP-C Subjective Start: 11/29/22 10: Freq: Status: Active Protocol: Document 12/14/22 16:31 ED (Rec: 12/14/22 16:35 ED [id number]) OP-PT Subjective Patient Comments Patient Comments Pt states that he wants to skip the NuStep today b/c he did it for 15 minutes yesterday. Is happy b/c he was able to go to the [employer] the other day and walked using a walking stick. PT-OP-D Balance Start: 11/29/22 10:22 Freq: Status: Active Protocol: Document 11/29/22 11:28 ED (Rec: 11/29/22 11:41 ED [id number]) Balance Tests Single Limb Standing Single Limb- Right unable Single Limb- Left unable Semi-Tandem Standing Semi-Tandem Standing Balance 10 seconds Tandem Tandem Standing unable PT-OP-E Functional Tests Start: 11/29/22 10:22 Freq: Status: Active Protocol: Document 12/01/22 12:03 ED (Rec: 12/01/22 12:10 ED [id number]) Functional Tests 6 Minute Walk Test Distance 460 feet Device Used 4WW Comments required 1 seated rest break Four Step Square Test Score 42 Comments no AD; CGA - mod A for balance correction PT-OP-Q Treatments Start: 11/29/22 10:22 Freq: Status: Active Protocol: Document 12/14/22 16:31 ED (Rec: 12/14/22 16:35 ED [id number]) Therapeutic Activity Therapeutic Activity SQUAT Name sit<>stand Reps/Minutes 5x10 Comments 2x6-8 with 10# weight Gait Training Gait Activity 4WW Description ambulate Device Used 4ww Level of Assistance CGA Surface flat Distance/Duration 100-500 feet Comments 3 different sets of walking; quit at volitional fatigue PT-OP-T Assessment and Plan Start: 11/29/22 10:22 Freq: Status: Active Protocol: Document 12/14/22 16:31 ED (Rec: 12/14/22 16:35 ED [id number]) Physical Therapy Assessment Goals stairs Impairment stairs Snf Goal (LTG) Pt will be able to negotiate 5 steps using single railing SBA. LTG Duration 6-8 weeks ambulation Impairment ambulation Short Term Goal (STG) Pt will be able to ambulate > 200 feet using walking stick SBA. STG Duration 3 weeks Bricklayer Paving Brick Goal (LTG) Pt will be able to ambulate > 500 feet using walking stick or 4WW SBA. LTG Duration 6-8 weeks SPPB Impairment SPPB Impairment IE: 5/12 Snf Goal (LTG) Pt will improve SPPB by 2 points to a score of >7/12. ( MCID is 1 point improvement) LTG Duration 6-8 weeks 5x STS Impairment 5x STS Impairment IE: Unable to complete Short Term Goal (STG) Pt will be able to perform 5 sit<>stands from 22 inch height c/o UE assist. STG Duration 3 weeks Bricklayer Paving Brick Goal (LTG) Pt will be able to perform 5 sit<>stands from 20 inch height c/o UE assist. LTG Duration 6-8 weeks Assessment Summary Assessment Worked on LE strengthening via repeated sit<>stands today. Worked at lower chair height c /o weight and then worked with 10# weight at a higher height . Ambulated for 3-4 sets at end of session using 4WW at self selected distances. Pt appears to be improving in ability to rise from a chair. Physical Therapy Plan Frequency and Duration Frequency of Treatment 2x/Week Duration of treatment (weeks) 10 Plan of Care Start Date 11/29/22 Plan of Care End Date 02/27/23 Therapeutic Interventions Therapeutic Interventions Balance Training,Coordination Training,Gait Training,Home Exercise Program,Joint Mobilizations,Manual Therapy, Neuromuscular Re-education, Orthotic/Prosthetic Management ,Patient/Caregiver Education, Self-Care/Home Management,Soft Tissue Mobilization,Taping, Therapeutic Activities, Therapeutic Exercises Next Visit Focus/Plan Next Note Type Treatment Note Next Visit Plan Ask response to increased standing activities last tx. POC: NuStep (high resistance), STS, walk, row, standing step activities //bars
--- NOTE | 2022-12-16 09:15 | PT-OP ANOTE ---
PT left VM for patient regarding missed appointment today at 9:00 am. Informed patient of next week's scheduled appointments and offered patient appointment for later today, 12/16.
--- NOTE | 2022-12-21 12:04 | PT.OTN ---
Current Diagnoses Polyneuropathy, unspecified (12/21/22) Unspecified abnormalities of gait and mobility (12/21/22) Physical Therapy Treatment Note PT-OP-A Visit Information Start: 11/29/22: Freq: Status: Active Protocol: Document 12/21/22 12:02 ED (Rec: 12/21/22 12:04 ED [id number]) Out-Patient Physical Therapy Visit Information Visit Information Visit Type Treatment Note Visit Note 07/23 Visit Start Time 11:20 Visit Stop Time 12:00 Total Visit Minutes 40 Visit Number 6 PT-OP-B Current Condition Start: 11/29/22 10: Freq: Status: Active Protocol: Document 11/29/22 11:28 ED (Rec: 11/29/22 11:41 ED [id number]) Current Condition History of Current Condition Onset Date 2013 Current Complaints balance History of Current Condition Pt states that in May of 2013 he realized that he had bad balance. He states he does most of his locomotion via manual w/c. He lives on the second floor of an [facility] which has an elevator. He states that there is no need for him to walk there b/c he can just use his w/c. He states that he walks to get to his car and out of his car but not much else. Pt has been using the w/ c since about 2013. He will also use a walking stick. He owns a 4WW but does not use that often. He reports 2-3 falls in the past year. He states that sometimes his body will just collapse and he does not know why. 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 Treatment Goals Patient/Caregiver Goals Walk 1/4 of a mile PT-OP-C Subjective Start: 11/29/22: Freq: Status: Active Protocol: Document 12/21/22 12:02 ED (Rec: 12/21/22 12:04 ED [id number]) OP-PT Subjective Patient Comments Patient Comments Pt states he didn't come to the last appointment b/c it was too early for him. He only wants to have appointments after 10 am. PT-OP-D Balance Start: 11/29/22 10: Freq: Status: Active Protocol: Document 11/29/22 11:28 ED (Rec: 11/29/22 11:41 ED [id number]) Balance Tests Single Limb Standing Single Limb- Right unable Single Limb- Left unable Semi-Tandem Standing Semi-Tandem Standing Balance 10 seconds Tandem Tandem Standing unable PT-OP-E Functional Tests Start: 11/29/22 10:22 Freq: Status: Active Protocol: Document 12/01/22 12:03 ED (Rec: 12/01/22 12:10 ED [id number]) Functional Tests 6 Minute Walk Test Distance 460 feet Device Used 4WW Comments required 1 seated rest break Four Step Square Test Score 42 Comments no AD; CGA - mod A for balance correction PT-OP-Q Treatments Start: 11/29/22 10:22 Freq: Status: Active Protocol: Document 12/21/22 12:02 ED (Rec: 12/21/22 12:04 ED [id number]) Cardio Equipment Recumbent Bicycle Duration (Minutes) 8 Resistance 5 Therapeutic Activity Therapeutic Activity SQUAT Name sit<>stand Reps/Minutes 5x10 Comments 2x6-8 with 10# weight CGA Gait Training Gait Activity 4WW Description ambulate Device Used 4ww Level of Assistance CGA Surface flat Distance/Duration 100-500 feet Comments 3 different sets of walking; quit at volitional fatigue PT-OP-T Assessment and Plan Start: 11/29/22 10:22 Freq: Status: Active Protocol: Document 12/21/22 12:02 ED (Rec: 12/21/22 12:04 ED [id number]) Physical Therapy Assessment Goals stairs Impairment stairs [employer] Goal (LTG) Pt will be able to negotiate 5 steps using single railing SBA. LTG Duration 6-8 weeks ambulation Impairment ambulation Short Term Goal (STG) Pt will be able to ambulate > 200 feet using walking stick SBA. STG Duration 3 weeks Halfway Goal (LTG) Pt will be able to ambulate > 500 feet using walking stick or 4WW SBA. LTG Duration 6-8 weeks SPPB Impairment SPPB Impairment IE: 5/12 [employer] Goal (LTG) Pt will improve SPPB by 2 points to a score of >7/12. ( MCID is 1 point improvement) LTG Duration 6-8 weeks 5x STS Impairment 5x STS Impairment IE: Unable to complete Short Term Goal (STG) Pt will be able to perform 5 sit<>stands from 22 inch height c/o UE assist. STG Duration 3 weeks Halfway Goal (LTG) Pt will be able to perform 5 sit<>stands from 20 inch height c/o UE assist. LTG Duration 6-8 weeks Assessment Summary Assessment Worked on LE strengthening via repeated sit<>stands today. Worked at lower chair height c /o weight and then worked with 10# weight at a higher height . Ambulated for 3-4 sets at end of session using 4WW at self selected distances. Pt appears to be improving in ability to rise from a chair but continues to be inconsistent. He is consistently retropulsive in his failed attempts to rise from a chair. Physical Therapy Plan Frequency and Duration Frequency of Treatment 2x/Week Duration of treatment (weeks) 10 Plan of Care Start Date 11/29/22 Plan of Care End Date 02/27/23 Therapeutic Interventions Therapeutic Interventions Balance Training,Coordination Training,Gait Training,Home Exercise Program,Joint Mobilizations,Manual Therapy, Neuromuscular Re-education, Orthotic/Prosthetic Management ,Patient/Caregiver Education, Self-Care/Home Management,Soft Tissue Mobilization,Taping, Therapeutic Activities, Therapeutic Exercises Next Visit Focus/Plan Next Note Type Treatment Note Next Visit Plan Ask response to increased standing activities last tx. POC: NuStep (high resistance), STS, walk, row, standing step activities //bars
--- NOTE | 2022-12-23 12:04 | PT.OTN ---
Current Diagnoses Polyneuropathy, unspecified (12/23/22) Unspecified abnormalities of gait and mobility (12/23/22) Physical Therapy Treatment Note PT-OP-A Visit Information Start: 11/29/22 Freq: Status: Active Protocol: Document 12/23/22 12:00 ED (Rec: 12/23/22 12:04 ED [id number]) Out-Patient Physical Therapy Visit Information Visit Information Visit Type Treatment Note Visit Note 08/22 Visit Start Time 11:15 Visit Stop Time 12:00 Total Visit Minutes 45 Visit Number 7 PT-OP-B Current Condition Start: 11/29/22: Freq: Status: Active Protocol: Document 11/29/22 11:28 ED (Rec: 11/29/22 11:41 ED [id number]) Current Condition History of Current Condition Onset Date 2013 Current Complaints balance History of Current Condition Pt states that in May of 2013 he realized that he had bad balance. He states he does most of his locomotion via manual w/c. He lives on the second floor of an [employer] which has an elevator. He states that there is no need for him to walk there b/c he can just use his w/c. He states that he walks to get to his car and out of his car but not much else. Pt has been using the w/ c since about 2013. He will also use a walking stick. He owns a 4WW but does not use that often. He reports 2-3 falls in the past year. He states that sometimes his body will just collapse and he does not know why. 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 Treatment Goals Patient/Caregiver Goals Walk 1/4 of a mile PT-OP-C Subjective Start: 11/29/22 Freq: Status: Active Protocol: Document 12/23/22 12:00 ED (Rec: 12/23/22 12:04 ED [id number]) OP-PT Subjective Patient Comments Patient Comments Pt states that he has noticed improvements since starting PT; he mentions how he is now able to stand from a chair w/o using his hands now but only if the chair isn't very low. PT-OP-D Balance Start: 11/29/22: Freq: Status: Active Protocol: Document 11/29/22 11:28 ED (Rec: 11/29/22 11:41 ED [id number]) Balance Tests Single Limb Standing Single Limb- Right unable Single Limb- Left unable Semi-Tandem Standing Semi-Tandem Standing Balance 10 seconds Tandem Tandem Standing unable PT-OP-E Functional Tests Start: 11/29/22 10:22 Freq: Status: Active Protocol: Document 12/01/22 12:03 ED (Rec: 12/01/22 12:10 ED [id number]) Functional Tests 6 Minute Walk Test Distance 460 feet Device Used 4WW Comments required 1 seated rest break Four Step Square Test Score 42 Comments no AD; CGA - mod A for balance correction PT-OP-Q Treatments Start: 11/29/22 10:22 Freq: Status: Active Protocol: Document 12/23/22 12:00 ED (Rec: 12/23/22 12:04 ED [id number]) Cardio Equipment Recumbent Elliptical (Biodex) Duration (Minutes) 10 Resistance 8 Seat Position 11 Therapeutic Activity Therapeutic Activity SQUAT Name sit<>stand Reps/Minutes 5x10 Comments 2x6-8 with 10# weight CGA Gait Training Gait Activity 4WW Description ambulate Device Used 4ww Level of Assistance CGA Surface flat Distance/Duration 100-500 feet Comments 3 different sets of walking; quit at volitional fatigue PT-OP-T Assessment and Plan Start: 11/29/22 10:22 Freq: Status: Active Protocol: Document 12/23/22 12:00 ED (Rec: 12/23/22 12:04 ED [id number]) Physical Therapy Assessment Goals stairs Impairment stairs Deputy Chief Sheriff Goal (LTG) Pt will be able to negotiate 5 steps using single railing SBA. LTG Duration 6-8 weeks ambulation Impairment ambulation Short Term Goal (STG) Pt will be able to ambulate > 200 feet using walking stick SBA. STG Duration 3 weeks Care Home Goal (LTG) Pt will be able to ambulate > 500 feet using walking stick or 4WW SBA. LTG Duration 6-8 weeks SPPB Impairment SPPB Impairment IE: 5/12 Care Home Goal (LTG) Pt will improve SPPB by 2 points to a score of >7/12. ( MCID is 1 point improvement) LTG Duration 6-8 weeks 5x STS Impairment 5x STS Impairment IE: Unable to complete Short Term Goal (STG) Pt will be able to perform 5 sit<>stands from 22 inch height c/o UE assist. STG Duration 3 weeks Care Home Goal (LTG) Pt will be able to perform 5 sit<>stands from 20 inch height c/o UE assist. LTG Duration 6-8 weeks Assessment Summary Assessment Continued to work on LE strength via sit<>stands and followed by walks using a 4WW. Pt primarily locomotes at his [employer] by propelling himself using his feet in his w/c. Pt typically will stop walking or sit<>stands early and requires encouragement to continue with reps or walking distance. Is continually retropulsive when performing sit > stands so requires cues to place more weight through forefoot. he also does a poor job with eccentric control when sitting so PT has used a pillow to cushion his landings . Physical Therapy Plan Frequency and Duration Frequency of Treatment 2x/Week Duration of treatment (weeks) 10 Plan of Care Start Date 11/29/22 Plan of Care End Date 02/27/23 Therapeutic Interventions Therapeutic Interventions Balance Training,Coordination Training,Gait Training,Home Exercise Program,Joint Mobilizations,Manual Therapy, Neuromuscular Re-education, Orthotic/Prosthetic Management ,Patient/Caregiver Education, Self-Care/Home Management,Soft Tissue Mobilization,Taping, Therapeutic Activities, Therapeutic Exercises Next Visit Focus/Plan Next Note Type Treatment Note Next Visit Plan Ask response to increased standing activities last tx. POC: NuStep (high resistance), STS, walk, row, standing step activities //bars
--- NOTE | 2022-12-29 15:41 | PT-OP ANOTE ---
Called pt and left a voicemail at 13:15 reminding pt of appt today. Informed pt that he could reschedule for another day. This is the second no-show.
--- NOTE | 2023-01-02 14:22 | PT.OTN ---
Current Diagnoses Polyneuropathy, unspecified (01/02/23) Unspecified abnormalities of gait and mobility (01/02/23) Physical Therapy Treatment Note PT-OP-A Visit Information Start: 11/29/22 10: Freq: Status: Active Protocol: Document 01/02/23 13:52 NM (Rec: 01/02/23 14:22 NM [id number]) Out-Patient Physical Therapy Visit Information Visit Information Visit Type Treatment Note Visit Note 09/22 Visit Start Time 13:02 Visit Stop Time 13:45 Total Visit Minutes 43 Visit Number 8 PT-OP-B Current Condition Start: 11/29/22 10: Freq: Status: Active Protocol: Document 11/29/22 11:28 ED (Rec: 11/29/22 11:41 ED [id number]) Current Condition History of Current Condition Onset Date 2013 Current Complaints balance History of Current Condition Pt states that in May of 2013 he realized that he had bad balance. He states he does most of his locomotion via manual w/c. He lives on the second floor of an [facility] which has an elevator. He states that there is no need for him to walk there b/c he can just use his w/c. He states that he walks to get to his car and out of his car but not much else. Pt has been using the w/ c since about 2013. He will also use a walking stick. He owns a 4WW but does not use that often. He reports 2-3 falls in the past year. He states that sometimes his body will just collapse and he does not know why. 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 Treatment Goals Patient/Caregiver Goals Walk 1/4 of a mile PT-OP-C Subjective Start: 11/29/22 10: Freq: Status: Active Protocol: Document 01/02/23 13:52 NM (Rec: 01/02/23 14:22 NM [id number]) OP-PT Subjective Patient Comments Patient Comments Pt did not attend last session as he forgot that he had an appointment. He reports that he is doing well today, and he is doing his sit<>stand exercise at home without his hands. He states that PT has really helped him, but he is mostly concerned about his balance now. PT-OP-D Balance Start: 11/29/22 10:22 Freq: Status: Active Protocol: Document 11/29/22 11:28 ED (Rec: 11/29/22 11:41 ED [id number]) Balance Tests Single Limb Standing Single Limb- Right unable Single Limb- Left unable Semi-Tandem Standing Semi-Tandem Standing Balance 10 seconds Tandem Tandem Standing unable PT-OP-E Functional Tests Start: 11/29/22 10:22 Freq: Status: Active Protocol: Document 12/01/22 12:03 ED (Rec: 12/01/22 12:10 ED [id number]) Functional Tests 6 Minute Walk Test Distance 460 feet Device Used 4WW Comments required 1 seated rest break Four Step Square Test Score 42 Comments no AD; CGA - mod A for balance correction PT-OP-Q Treatments Start: 11/29/22 10:22 Freq: Status: Active Protocol: Document 01/02/23 13:52 NM (Rec: 01/02/23 14:22 NM [id number]) Therapeutic Activity Therapeutic Activity transfers Comments CGA for stand pivot transfer; performed multiple times during session. Pt attempting to take multiple shuffling steps between surfaces SQUAT Name 1. sit<>stand, 2. eccentric lowering squat pause Reps/Minutes 1. 3x5, 2. 1x5x3 Comments CGA for stability Pt reaching fwd for mirror to promote ant weight shift and decreased retropulsion during standing motion. In standing, pt using visual cues from mirror to maintain midline and weight shift to equal weight bearing. Then, fwd reaching during eccentric lowering. Pt tends to fall backward during lowering but is usually able to move to standing without UE use. 1. sit <>stand 2. squat pauses x3 sec during eccentric motion to decelerate Gait Training Gait Activity trek pole Device Used [employer] pole Level of Assistance CGA, occasional Min A to correct if LOB Surface stable Distance/Duration 175 ft, 25-50 ft multiple times during session Treatment Focus endurance, balance Comments Pt with shuffling gait, mild sway with use of trekking pole . Several instances of lateral LOB with pt attempting to self-correct, min A to correct . PT discussed with pt importance of using AD to assist with balance at this time rather than pt attempting to ambulate without walking stick or other AD at home. Neuro Re-Education Treatment Balance Activities Tandem/Semi-tandem/Narrow Details mirror for visual cues Surface stable Reps/Duration 2x10 ea Comments 1. Tandem attempted, unable to complete without UE assistance from PT; with UE assist, able to complete x10 sec BLE 2. Semi-tandem: able to move into position without UE assist, and able to maintain balance x6 sec BLE 3. Narrow stance: able to move into position from sitting and maintain balance x10 without UE assist side stepping Equipment @ ballerina bar, but no UE support Reps/Duration 3x10 ft ea direction Comments CGA for stability. Purpose: balance during lateral plane motion. Pt not using UE for support, only occasional assist during balance. Cues to pick pulling machine tender BLE during stepping, no L hip ER compensation when LLE leading. PT-OP-T Assessment and Plan Start: 11/29/22 10:22 Freq: Status: Active Protocol: Document 01/02/23 13:52 NM (Rec: 01/02/23 14:22 NM [id number]) Physical Therapy Assessment Goals stairs Impairment stairs [employer] Manager Assistant Goal (LTG) Pt will be able to negotiate 5 steps using single railing SBA. LTG Duration 6-8 weeks ambulation Impairment ambulation Short Term Goal (STG) Pt will be able to ambulate > 200 feet using walking stick SBA. STG Duration 3 weeks Trust Manager Assistant Goal (LTG) Pt will be able to ambulate > 500 feet using walking stick or 4WW SBA. LTG Duration 6-8 weeks SPPB Impairment SPPB Impairment IE: 5/12 Half-Way Goal (LTG) Pt will improve SPPB by 2 points to a score of >7/12. ( MCID is 1 point improvement) LTG Duration 6-8 weeks 5x STS Impairment 5x STS Impairment IE: Unable to complete Short Term Goal (STG) Pt will be able to perform 5 sit<>stands from 22 inch height c/o UE assist. STG Duration 3 weeks Trust Manager Assistant Goal (LTG) Pt will be able to perform 5 sit<>stands from 20 inch height c/o UE assist. LTG Duration 6-8 weeks Assessment Summary Assessment Pt tolerated treatment well. Tmt focus today on continued strengthening of BLE and balance. Pt continues to demo retropulsion with STS and during eccentric lowering to a chair; worked on fwd reaching and glute isometrics during eccentric lowering to address this issue. Pt's gait is steadier with AD use, and he would likely benefit from a more stable AD. Pt's balance continues to be a primary impairment; he demos improvement in various base positions during stance, but he lacks proprioceptive/safety awareness. Progress note today because it's been 30 days since evaluation. Pt has missed several sessions. Pt would benefit from skilled PT to address impairments in gait , balance, transfers, BLE strengthening, and activity tolerance for safety during ADLs and to decrease fall risk . Physical Therapy Plan Frequency and Duration Frequency of Treatment 2x/Week Duration of treatment (weeks) 10 Plan of Care Start Date 11/29/22 Plan of Care End Date 02/27/23 Therapeutic Interventions Therapeutic Interventions Balance Training,Coordination Training,Gait Training,Home Exercise Program,Joint Mobilizations,Manual Therapy, Neuromuscular Re-education, Orthotic/Prosthetic Management ,Patient/Caregiver Education, Self-Care/Home Management,Soft Tissue Mobilization,Taping, Therapeutic Activities, Therapeutic Exercises Next Visit Focus/Plan Next Note Type Treatment Note Next Visit Plan STS to prevent retropulsion, balance activities, BLE strengthening. Update HEP
--- NOTE | 2023-01-02 15:47 | PT.OPPN ---
Current Diagnoses Polyneuropathy, unspecified (01/02/23) Unspecified abnormalities of gait and mobility (01/02/23) Physical Therapy Progress Note PT-OP-A Visit Information Start: 11/29/22 10: Freq: Status: Active Protocol: Document 01/02/23 13:52 NM (Rec: 01/02/23 14:29 NM [id number]) Out-Patient Physical Therapy Visit Information Visit Information Visit Type Progress Note Visit Note 09/22 Visit Start Time 13:02 Visit Stop Time 13:45 Total Visit Minutes 43 Visit Number 8 PT-OP-B Current Condition Start: 11/29/22 10: Freq: Status: Active Protocol: Document 11/29/22 11:28 ED (Rec: 11/29/22 11:41 ED [id number]) Current Condition History of Current Condition Onset Date 2013 Current Complaints balance History of Current Condition Pt states that in May of 2013 he realized that he had bad balance. He states he does most of his locomotion via manual w/c. He lives on the second floor of an [facility] which has an elevator. He states that there is no need for him to walk there b/c he can just use his w/c. He states that he walks to get to his car and out of his car but not much else. Pt has been using the w/ c since about 2013. He will also use a walking stick. He owns a 4WW but does not use that often. He reports 2-3 falls in the past year. He states that sometimes his body will just collapse and he does not know why. 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 Treatment Goals Patient/Caregiver Goals Walk 1/4 of a mile PT-OP-C Subjective Start: 11/29/22: Freq: Status: Active Protocol: Document 01/02/23 13:52 NM (Rec: 01/02/23 14:29 NM [id number]) OP-PT Subjective Patient Comments Patient Comments Pt did not attend last session as he forgot that he had an appointment. He reports that he is doing well today, and he is doing his sit<>stand exercise at home without his hands. He states that PT has really helped him, but he is mostly concerned about his balance now. PT-OP-D Balance Start: 11/29/22 10: Freq: Status: Active Protocol: Document 11/29/22 11:28 ED (Rec: 11/29/22 11:41 ED [id number]) Balance Tests Single Limb Standing Single Limb- Right unable Single Limb- Left unable Semi-Tandem Standing Semi-Tandem Standing Balance 10 seconds Tandem Tandem Standing unable PT-OP-E Functional Tests Start: 11/29/22 10:22 Freq: Status: Active Protocol: Document 12/01/22 12:03 ED (Rec: 12/01/22 12:10 ED [id number]) Functional Tests 6 Minute Walk Test Distance 460 feet Device Used 4WW Comments required 1 seated rest break Four Step Square Test Score 42 Comments no AD; CGA - mod A for balance correction PT-OP-T Assessment and Plan Start: 11/29/22 10:22 Freq: Status: Active Protocol: Document 01/02/23 13:52 NM (Rec: 01/02/23 14:29 NM [id number]) Physical Therapy Assessment Goals stairs Impairment stairs [facility] Goal (LTG) Pt will be able to negotiate 5 steps using single railing SBA. NOT MET 01/02/23 LTG Duration 6-8 weeks ambulation Impairment ambulation Short Term Goal (STG) Pt will be able to ambulate > 200 feet using walking stick SBA. NOT MET: 175 FT STG Duration 3 weeks [facility] Goal (LTG) Pt will be able to ambulate > 500 feet using walking stick or 4WW SBA. LTG Duration 6-8 weeks SPPB Impairment SPPB Impairment IE: 06/24 [facility] Goal (LTG) Pt will improve SPPB by 2 points to a score of >7/12. ( MCID is 1 point improvement) NOT MET 01/02/23, CURRENT: 3 LTG Duration 6-8 weeks 5x STS Impairment 5x STS Impairment IE: Unable to complete Short Term Goal (STG) Pt will be able to perform 5 sit<>stands from 22 inch height c/o UE assist. PARTIALLY MET STG Duration 3 weeks [employer] Goal (LTG) Pt will be able to perform 5 sit<>stands from 20 inch height c/o UE assist. LTG Duration 6-8 weeks Progress Towards Goals Progress Towards Goals Slow Progress due to Activity Tolerance,Slow Progress due to Attendance Issues Assessment Summary Assessment Pt is making slow progress toward goals. He has missed several PT sessions and has had moderate compliance with his HEP. Pt has demonstrated improvement in gait distance since IE, but he still has not met his goals. He would benefit from the use of a more stable and more frequent AD than a walking pole. His primary method of mobility is a wheelchair that he propels with his legs. His SPPB score has decreased in the static balance section and plateaued in the STS section, but he has improved in the gait section. His TUG score is 21.22 seconds, a decrease from the IE. He is closest to meeting his STS goal. While he is able to perform STS without UE use , he falls backward into the chair without consistent cueing; thus, he is unable to safely complete a 5xSTS. He continues to be limited by fatigue, BLE strength, and balance. Pt would benefit from continued PT to address balance, gait, strength, and safety impairments to decrease fall risk and improve QOL. Physical Therapy Plan Frequency and Duration Frequency of Treatment 2x/Week Duration of treatment (weeks) 10 Plan of Care Start Date 11/29/22 Plan of Care End Date 02/27/23 Therapeutic Interventions Therapeutic Interventions Balance Training,Coordination Training,Gait Training,Home Exercise Program,Joint Mobilizations,Manual Therapy, Neuromuscular Re-education, Orthotic/Prosthetic Management ,Patient/Caregiver Education, Self-Care/Home Management,Soft Tissue Mobilization,Taping, Therapeutic Activities, Therapeutic Exercises Next Visit Focus/Plan Next Note Type Treatment Note Next Visit Plan STS to prevent retropulsion, balance activities, BLE strengthening. Update HEP
--- NOTE | 2023-01-11 13:00 | PT.OTN ---
Current Diagnoses Polyneuropathy, unspecified (01/11/23) Unspecified abnormalities of gait and mobility (01/11/23) Physical Therapy Treatment Note PT-OP-A Visit Information Start: 11/29/22 10:22 Freq: Status: Active Protocol: Document 01/11/23 12:16 SP (Rec: 01/11/23 13:05 SP [id number]) Out-Patient Physical Therapy Visit Information Visit Information Visit Type Treatment Note Visit Note 02/22 post PN Visit Start Time 12:16 Visit Stop Time 13:00 Total Visit Minutes 44 Visit Number 10 Number of SECURITY PATROL DRIVER Visits 1 Evaluation Information Evaluation Date 11/29/22 PT-OP-B Current Condition Start: 11/29/22 10: Freq: Status: Active Protocol: Document 11/29/22 11:28 ED (Rec: 11/29/22 11:41 ED [id number]) Current Condition History of Current Condition Onset Date 2013 Current Complaints balance History of Current Condition Pt states that in May of 2013 he realized that he had bad balance. He states he does most of his locomotion via manual w/c. He lives on the second floor of an [facility] which has an elevator. He states that there is no need for him to walk there b/c he can just use his w/c. He states that he walks to get to his car and out of his car but not much else. Pt has been using the w/ c since about 2013. He will also use a walking stick. He owns a 4WW but does not use that often. He reports 2-3 falls in the past year. He states that sometimes his body will just collapse and he does not know why. 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 Treatment Goals Patient/Caregiver Goals Walk 1/4 of a mile PT-OP-C Subjective Start: 11/29/22 10:22 Freq: Status: Active Protocol: Document 01/11/23 12:16 SP (Rec: 01/11/23 13:05 SP [id number]) OP-PT Subjective Patient Comments Patient Comments Pt reports didn't bring his trek poles. Uses the [employer] at [facility]. PT-OP-D Balance Start: 11/29/22 10:22 Freq: Status: Active Protocol: Document 11/29/22 11:28 ED (Rec: 11/29/22 11:41 ED [id number]) Balance Tests Single Limb Standing Single Limb- Right unable Single Limb- Left unable Semi-Tandem Standing Semi-Tandem Standing Balance 10 seconds Tandem Tandem Standing unable PT-OP-E Functional Tests Start: 11/29/22 10:22 Freq: Status: Active Protocol: Document 12/01/22 12:03 ED (Rec: 12/01/22 12:10 ED [id number]) Functional Tests 6 Minute Walk Test Distance 460 feet Device Used 4WW Comments required 1 seated rest break Four Step Square Test Score 42 Comments no AD; CGA - mod A for balance correction PT-OP-Q Treatments Start: 11/29/22 10:22 Freq: Status: Active Protocol: Document 01/11/23 12:16 SP (Rec: 01/11/23 13:05 SP [id number]) Cardio Equipment Recumbent Stepper (Sci-Fit) Duration (Minutes) 8 Resistance 3 (.95 miles) Seat Position 14>15>14 Other BUEs/BLEs, 45-50 RPMs Gym Equipment Shuttle Recovery Unilateral Squats Resistance 37# (navy band) Shuttle Recovery Platform Stable Reps/Time x10 L, 2x5 LR reps Bilateral Squats Details cued knee abd Resistance 87# (2 navy) Reps/Time 2x10 Therapeutic Activity Therapeutic Activity transfers Name /c trek pole Reps/Minutes x6 reps Comments CGA for stand pivot transfer; performed multiple times during session. Cued marching steps for foot clearance,step back fully SQUAT Name 1. sit<>stand, 2. eccentric lowering squat pause Reps/Minutes 1. 3x5, 2. 1x 3 mini squat mid range Comments CGA-Min for stability Pt reaching fwd for mirror to promote ant weight shift and decreased retropulsion during standing motion. In standing, pt using visual cues from mirror to maintain midline and weight shift to equal weight bearing. Then, fwd reaching during eccentric lowering. Pt tends to fall backward during lowering but is usually able to move to standing without UE use. 1. sit <>stand 2. squat pauses x3 sec during eccentric motion to decelerate Gait Training Gait Activity trek pole Device Used 1 trekking pole Level of Assistance CGA, occasional Min A to correct if LOB Surface stable Distance/Duration 175 ft, 25-50 ft multiple times during session Treatment Focus endurance, balance Comments Pt decrease shuffling gait, mild sway with use of trekking pole. Decrease instances over wt shift trunk sways noted self-correct, 5%A to correct. PT discussed with pt importance of using AD to assist with balance at this time rather than pt attempting to ambulate without walking stick or other AD at home. PT-OP-T Assessment and Plan Start: 11/29/22 10:22 Freq: Status: Active Protocol: Document 01/11/23 12:16 SP (Rec: 01/11/23 13:05 SP [id number]) Physical Therapy Assessment Goals stairs Impairment stairs [facility] Goal (LTG) Pt will be able to negotiate 5 steps using single railing SBA. NOT MET 01/02/23 LTG Duration 6-8 weeks ambulation Impairment ambulation Short Term Goal (STG) Pt will be able to ambulate > 200 feet using walking stick SBA. NOT MET: 175 FT STG Duration 3 weeks Industrial Property Appraiser Goal (LTG) Pt will be able to ambulate > 500 feet using walking stick or 4WW SBA. LTG Duration 6-8 weeks SPPB Impairment SPPB Impairment IE: 5/12 Industrial Property Appraiser Goal (LTG) Pt will improve SPPB by 2 points to a score of >7/12. ( MCID is 1 point improvement) NOT MET 01/02/23, CURRENT: 3/ 12 LTG Duration 6-8 weeks 5x STS Impairment 5x STS Impairment IE: Unable to complete Short Term Goal (STG) Pt will be able to perform 5 sit<>stands from 22 inch height c/o UE assist. PARTIALLY MET STG Duration 3 weeks [facility] Goal (LTG) Pt will be able to perform 5 sit<>stands from 20 inch height c/o UE assist. LTG Duration 6-8 weeks Assessment Summary Assessment Pt improved wt shift fwd only use 1 UE complete STS from 20 table, mod cues for hip hinge slow eccentric sit for safety . Cued marching steps during SPT /c trek pole for safety foot clearance. Physical Therapy Plan Frequency and Duration Frequency of Treatment 2x/Week Duration of treatment (weeks) 10 Plan of Care Start Date 11/29/22 Plan of Care End Date 02/27/23 Therapeutic Interventions Therapeutic Interventions Balance Training,Coordination Training,Gait Training,Home Exercise Program,Joint Mobilizations,Manual Therapy, Neuromuscular Re-education, Orthotic/Prosthetic Management ,Patient/Caregiver Education, Self-Care/Home Management,Soft Tissue Mobilization,Taping, Therapeutic Activities, Therapeutic Exercises Next Visit Focus/Plan Next Note Type Treatment Note Next Visit Plan Continue safe transfers, gait w/ 1 trek pole. POC: STS to prevent retropulsion, balance activities, BLE strengthening. Update HEP
--- NOTE | 2023-01-16 14:08 | PT-OP ANOTE ---
No show- PT called and talked to pt. Pt reports that he forgot about his appointment today. Reminded pt about attendance policy and discussed that will discharge if he no shows again, about which pt verbally agreed. PT reminded pt about his upcoming appt on 01/19.
--- NOTE | 2023-01-19 16:04 | PT.OTN ---
Current Diagnoses Polyneuropathy, unspecified (01/19/23) Unspecified abnormalities of gait and mobility (01/19/23) Physical Therapy Treatment Note PT-OP-A Visit Information Start: 11/29/22 10:22 Freq: Status: Active Protocol: Document 01/19/23 12:19 NM (Rec: 01/19/23 13:02 NM [id number]) Out-Patient Physical Therapy Visit Information Visit Information Visit Type Treatment Note Visit Note 03/25 post PN Visit Start Time 12:20 Visit Stop Time 13:00 Total Visit Minutes 40 Visit Number 10 Number of KEY ACCOUNT MANAGER Visits 1 Evaluation Information Evaluation Date 11/29/22 PT-OP-B Current Condition Start: 11/29/22 10: Freq: Status: Active Protocol: Document 11/29/22 11:28 ED (Rec: 11/29/22 11:41 ED [id number]) Current Condition History of Current Condition Onset Date 2013 Current Complaints balance History of Current Condition Pt states that in May of 2013 he realized that he had bad balance. He states he does most of his locomotion via manual w/c. He lives on the second floor of an [facility] which has an elevator. He states that there is no need for him to walk there b/c he can just use his w/c. He states that he walks to get to his car and out of his car but not much else. Pt has been using the w/ c since about 2013. He will also use a walking stick. He owns a 4WW but does not use that often. He reports 2-3 falls in the past year. He states that sometimes his body will just collapse and he does not know why. 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 Treatment Goals Patient/Caregiver Goals Walk 1/4 of a mile PT-OP-C Subjective Start: 11/29/22 10:22 Freq: Status: Active Protocol: Document 01/19/23 12:19 NM (Rec: 01/19/23 15:52 NM [id number]) OP-PT Subjective Patient Comments Patient Comments Pt reports that he is doing well today. He presents to the clinic using a walking stick, no w/c today. He has been minimally compliant with HEP. He apologizes for missing last appt. PT-OP-D Balance Start: 11/29/22 10:22 Freq: Status: Active Protocol: Document 11/29/22 11:28 ED (Rec: 11/29/22 11:41 ED [id number]) Balance Tests Single Limb Standing Single Limb- Right unable Single Limb- Left unable Semi-Tandem Standing Semi-Tandem Standing Balance 10 seconds Tandem Tandem Standing unable PT-OP-E Functional Tests Start: 11/29/22 10:22 Freq: Status: Active Protocol: Document 12/01/22 12:03 ED (Rec: 12/01/22 12:10 ED [id number]) Functional Tests 6 Minute Walk Test Distance 460 feet Device Used 4WW Comments required 1 seated rest break Four Step Square Test Score 42 Comments no AD; CGA - mod A for balance correction PT-OP-Q Treatments Start: 11/29/22 10:22 Freq: Status: Active Protocol: Document 01/19/23 12:19 NM (Rec: 01/19/23 13:02 NM [id number]) Gym Equipment Shuttle Recovery Unilateral Squats Resistance 37# (navy band) Shuttle Recovery Platform Stable Reps/Time 1x8 ea (dec reps because inc BLE reps) Bilateral Squats Details [place] green tb around thighs for hip abd Resistance 1. 87# (3 navy), 2. 75# (3 navy) Reps/Time 1. 2x10, 2. 2x10 Sport Cord Resisted walking Exercise Details fwd, retro, lateral (2 trekking poles) Cord/Resistance green Reps/Duration 1x8 reps (~5-8 ft, 10 steps) Comments Cues for foot clearance, no shuffling feet. For lateral ambulation, neutral foot/hip posture. CGA with 2 trekking poles, min sway. Gait Training Gait Activity trek pole Device Used 2 trekking poles Level of Assistance CGA Surface stable Distance/Duration 200 ft, 50 ft multiple times in sessions Treatment Focus endurance, balance Comments PT compared 1 trek pole vs 2 trekking poles. Pt demos decreased sway and shuffling with 2 poles vs 1 pole. Pt is CGA because he crosses his feet when ambulating, occasionally causing him to lose his balance. When using 1 pole, pt is CGA but with mod sway and more shuffling gait. 2 pt gait pattern (difficult- review next time) PT-OP-T Assessment and Plan Start: 11/29/22 10:22 Freq: Status: Active Protocol: Document 01/19/23 12:19 NM (Rec: 12/07/23 13:02 NM [id number]) Physical Therapy Assessment Rehab Potential Rehabilitation Potential Fair Evaluation Complexity Number of Personal Factors/Comorbidities 1-2 Number of Body Systems Impaired 3 Impairments Impairments Activity Tolerance,Balance, Coordination,Functional Activities,Functional Mobility ,Gait,Strength,Transfers Other Concerns Fall Risk yes Goals stairs Impairment stairs Furrier Designer Goal (LTG) Pt will be able to negotiate 5 steps using single railing SBA. NOT MET 01/02/23 LTG Duration 6-8 weeks ambulation Impairment ambulation Short Term Goal (STG) Pt will be able to ambulate > 200 feet using walking stick SBA. NOT MET: 175 FT STG Duration 3 weeks Long-Term Goal (LTG) Pt will be able to ambulate > 500 feet using walking stick or 4WW SBA. LTG Duration 6-8 weeks SPPB Impairment SPPB Impairment IE: 06/24 Furrier Designer Goal (LTG) Pt will improve SPPB by 2 points to a score of >7/12. ( MCID is 1 point improvement) NOT MET 01/02/23, CURRENT: LTG Duration 6-8 weeks 5x STS Impairment 5x STS Impairment IE: Unable to complete Short Term Goal (STG) Pt will be able to perform 5 sit<>stands from 22 inch height c/o UE assist. PARTIALLY MET STG Duration 3 weeks Furrier Designer Goal (LTG) Pt will be able to perform 5 sit<>stands from 20 inch height c/o UE assist. LTG Duration 6-8 weeks Progress Towards Goals Progress Towards Goals Slow Progress due to Activity Tolerance,Slow Progress due to Attendance Issues Assessment Summary Assessment Pt tolerated tmt well. Tmt focus on progressing gait, BLE strengthening, and balance. Pt able to perform 4 sets of 75-87# B squat on leg press, an increase in the resistance. He demos knee valgus, so used a theraband around the knees for hip abd strength and a tactile cue. Gait training today using 2 trekking poles vs 1 trekking pole to demo to pt the difference in his balance with more support. Pt furniture surfs at home and demos mod sway with 1 walking stick/trekking pole because he doesn't use it without cueing unless he's turning. PT discussed with pt importance of using a more stable AD when ambulating due to his balance , preferably a rollator/4WW over B trekking poles. Pt shuffles and crosses his feet when ambulating, creating fall risk. He also has less sway with 2 trek poles. Will continue to progress strengthening and balance as tolerated. Pt would benefit from skilled PT to address impairments in balance, gait, and BLE strengthening to decrease fall risk and improve safety awareness. Physical Therapy Plan Frequency and Duration Frequency of Treatment 2x/Week Duration of treatment (weeks) 10 Plan of Care Start Date 11/29/22 Plan of Care End Date 02/27/23 Therapeutic Interventions Therapeutic Interventions Balance Training,Coordination Training,Gait Training,Home Exercise Program,Joint Mobilizations,Manual Therapy, Neuromuscular Re-education, Orthotic/Prosthetic Management ,Patient/Caregiver Education, Self-Care/Home Management,Soft Tissue Mobilization,Taping, Therapeutic Activities, Therapeutic Exercises Next Visit Focus/Plan Next Note Type Treatment Note Next Visit Plan Continue safe transfers, gait w/ 1-2 trek pole. POC: STS to prevent retropulsion, balance activities, BLE strengthening. Update HEP
--- NOTE | 2023-02-03 13:00 | PT.OTN ---
Current Diagnoses Polyneuropathy, unspecified (02/03/23) Unspecified abnormalities of gait and mobility (02/03/23) Physical Therapy Treatment Note PT-OP-A Visit Information Start: 11/29/22 10: Freq: Status: Active Protocol: Document 02/03/23 12:16 SP (Rec: 02/03/23 13:50 SP [id number]) Out-Patient Physical Therapy Visit Information Visit Information Visit Type Treatment Note Visit Note 04/22 post PN Visit Start Time 12:16 Visit Stop Time 13:00 Total Visit Minutes 44 Visit Number 11 Number of OPERATIONS RESEARCH DIRECTOR Visits 2 Evaluation Information Evaluation Date 11/29/22 PT-OP-B Current Condition Start: 11/29/22 10: Freq: Status: Active Protocol: Document 11/29/22 11:28 ED (Rec: 11/29/22 11:41 ED [id number]) Current Condition History of Current Condition Onset Date 2013 Current Complaints balance History of Current Condition Pt states that in May of 2013 he realized that he had bad balance. He states he does most of his locomotion via manual w/c. He lives on the second floor of an [facility] which has an elevator. He states that there is no need for him to walk there b/c he can just use his w/c. He states that he walks to get to his car and out of his car but not much else. Pt has been using the w/ c since about 2013. He will also use a walking stick. He owns a 4WW but does not use that often. He reports 2-3 falls in the past year. He states that sometimes his body will just collapse and he does not know why. 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 Treatment Goals Patient/Caregiver Goals Walk 1/4 of a mile PT-OP-C Subjective Start: 11/29/22 10:22 Freq: Status: Active Protocol: Document 02/03/23 12:16 SP (Rec: 02/03/23 13:50 SP [id number]) OP-PT Subjective Patient Comments Patient Comments Pt reports balance isn't as good today. PT-OP-D Balance Start: 11/29/22 10:22 Freq: Status: Active Protocol: Document 11/29/22 11:28 ED (Rec: 11/29/22 11:41 ED [id number]) Balance Tests Single Limb Standing Single Limb- Right unable Single Limb- Left unable Semi-Tandem Standing Semi-Tandem Standing Balance 10 seconds Tandem Tandem Standing unable PT-OP-E Functional Tests Start: 11/29/22 10: Freq: Status: Active Protocol: Document 12/01/22 12:03 ED (Rec: 12/01/22 12:10 ED [id number]) Functional Tests 6 Minute Walk Test Distance 460 feet Device Used 4WW Comments required 1 seated rest break Four Step Square Test Score 42 Comments no AD; CGA - mod A for balance correction PT-OP-Q Treatments Start: 11/29/22 10:22 Freq: Status: Active Protocol: Document 02/03/23 12:16 SP (Rec: 02/03/23 13:50 SP [id number]) Cardio Equipment Recumbent Stepper (Sci-Fit) Duration (Minutes) 8 Resistance 4 (1.11 miles) Seat Position 14 Other BUEs/BLEs, 45-50 RPMs Gym Equipment Shuttle Recovery Unilateral Squats Resistance 37# (navy> teal band) Shuttle Recovery Platform Stable Reps/Time 2x10 ea Bilateral Squats Details [place] green tb around thighs for hip abd Resistance 87# (3> teal navy) Reps/Time 2x12 Therapeutic Exercises Standing Exercises band walk Side bilateral Resistance TB #2 aqua band Equipment Used 1 UE support Reps/Minutes 10 ft x2 laps Neuro Re-Education Treatment Balance Activities back stepping Equipment //bars, open space Reps/Duration 10 ft, 15 ft x2 Comments cued trunk tall/flex forward COG over ARMANI, step taps, step up/back down Equipment 1 UE support step taps, step up/back down light BUE support Reps/Duration x10 each Comments Cued TKE stance LE, soft stepping, taller posturing. side stepping Equipment @ ballerina bar, but no UE support Reps/Duration 2x10 ft ea direction Comments CGA for stability. Purpose: balance during lateral plane motion. Pt not using UE for support, only occasional assist during balance. Cues to merchandise pickup/receiving associate BLE during stepping, no L hip ER compensation when LLE leading. PT-OP-T Assessment and Plan Start: 11/29/22 10:22 Freq: Status: Active Protocol: Document 02/03/23 12:16 SP (Rec: 02/03/23 13:50 SP [id number]) Physical Therapy Assessment Goals stairs Impairment stairs Womens Volleyball Coach Goal (LTG) Pt will be able to negotiate 5 steps using single railing SBA. NOT MET 01/02/23 LTG Duration 6-8 weeks ambulation Impairment ambulation Short Term Goal (STG) Pt will be able to ambulate > 200 feet using walking stick SBA. NOT MET: 175 FT STG Duration 3 weeks [facility] Goal (LTG) Pt will be able to ambulate > 500 feet using walking stick or 4WW SBA. LTG Duration 6-8 weeks SPPB Impairment SPPB Impairment IE: 06/24 Womens Volleyball Coach Goal (LTG) Pt will improve SPPB by 2 points to a score of >7/12. ( MCID is 1 point improvement) NOT MET 01/02/23, CURRENT: LTG Duration 6-8 weeks 5x STS Impairment 5x STS Impairment IE: Unable to complete Short Term Goal (STG) Pt will be able to perform 5 sit<>stands from 22 inch height c/o UE assist. PARTIALLY MET STG Duration 3 weeks [facility] Goal (LTG) Pt will be able to perform 5 sit<>stands from 20 inch height c/o UE assist. LTG Duration 6-8 weeks Assessment Summary Assessment Tx today continued LE strengthening and balance. Pt was able to decrease to 1 UE support on //bars during resisted side stepping and ability to back step without UE support short distances, cues for body awareness and centering pre sitting for safety awareness today. Cues for TKE during step activity to ecourage quad engagement ascend and descending also decrease to 1 UE support. Physical Therapy Plan Frequency and Duration Frequency of Treatment 2x/Week Duration of treatment (weeks) 10 Plan of Care Start Date 11/29/22 Plan of Care End Date 02/27/23 Therapeutic Interventions Therapeutic Interventions Balance Training,Coordination Training,Gait Training,Home Exercise Program,Joint Mobilizations,Manual Therapy, Neuromuscular Re-education, Orthotic/Prosthetic Management ,Patient/Caregiver Education, Self-Care/Home Management,Soft Tissue Mobilization,Taping, Therapeutic Activities, Therapeutic Exercises Next Visit Focus/Plan Next Note Type Treatment Note Next Visit Plan Continue safe transfers, gait w/ 1-2 trek pole. POC: STS to prevent retropulsion, balance activities, BLE strengthening. Update HEP
--- NOTE | 2023-02-08 14:30 | PT.OTN ---
Current Diagnoses Polyneuropathy, unspecified (02/08/23) Unspecified abnormalities of gait and mobility (02/08/23) Physical Therapy Treatment Note PT-OP-A Visit Information Start: 11/29/22 10:22 Freq: Status: Active Protocol: Document 02/08/23 14:07 SP (Rec: 02/08/23 14:31 SP [id number]) Out-Patient Physical Therapy Visit Information Visit Information Visit Type Treatment Note Visit Note 05/23 post PN Pt 23 min late for appt Visit Start Time 14:07 Visit Stop Time 14:30 Total Visit Minutes 23 Visit Number 12 Number of IT FIELD TECHNICIAN Visits 3 Evaluation Information Evaluation Date 11/29/22 PT-OP-B Current Condition Start: 11/29/22 10: Freq: Status: Active Protocol: Document 11/29/22 11:28 ED (Rec: 11/29/22 11:41 ED [id number]) Current Condition History of Current Condition Onset Date 2013 Current Complaints balance History of Current Condition Pt states that in May of 2013 he realized that he had bad balance. He states he does most of his locomotion via manual w/c. He lives on the second floor of an [facility] which has an elevator. He states that there is no need for him to walk there b/c he can just use his w/c. He states that he walks to get to his car and out of his car but not much else. Pt has been using the w/ c since about 2013. He will also use a walking stick. He owns a 4WW but does not use that often. He reports 2-3 falls in the past year. He states that sometimes his body will just collapse and he does not know why. 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 Treatment Goals Patient/Caregiver Goals Walk 1/4 of a mile PT-OP-C Subjective Start: 11/29/22 10:22 Freq: Status: Active Protocol: Document 02/08/23 14:07 SP (Rec: 02/08/23 14:31 SP [id number]) OP-PT Subjective Patient Comments Patient Comments Pt reports using new wooden walking stick. PT-OP-D Balance Start: 11/29/22 10:22 Freq: Status: Active Protocol: Document 11/29/22 11:28 ED (Rec: 11/29/22 11:41 ED [id number]) Balance Tests Single Limb Standing Single Limb- Right unable Single Limb- Left unable Semi-Tandem Standing Semi-Tandem Standing Balance 10 seconds Tandem Tandem Standing unable PT-OP-E Functional Tests Start: 11/29/22 10:22 Freq: Status: Active Protocol: Document 12/01/22 12:03 ED (Rec: 12/01/22 12:10 ED [id number]) Functional Tests 6 Minute Walk Test Distance 460 feet Device Used 4WW Comments required 1 seated rest break Four Step Square Test Score 42 Comments no AD; CGA - mod A for balance correction PT-OP-Q Treatments Start: 11/29/22 10:22 Freq: Status: Active Protocol: Document 02/08/23 14:07 SP (Rec: 02/08/23 14:31 SP [id number]) Gym Equipment Shuttle Recovery Unilateral Squats Resistance 50# (navy&teal band) Shuttle Recovery Platform Stable Reps/Time R 12, L 8 Bilateral Squats Details [place] green tb around thighs for hip abd Resistance 87# (3 dark navy) Reps/Time 3x8 reps Sport Cord Resisted walking Exercise Details fwd, retro, lateral (1 trekking poles, GARMENT SEWER HAND R side stepping) Cord/Resistance green Reps/Duration 4 reps (~5-8 ft, 10 steps) Comments Cues for foot clearance, no shuffling feet. For lateral ambulation, neutral foot/hip posture. CGA with 1 trekking poles, min sway. Therapeutic Activity Therapeutic Activity transfers Name /c 1 trek pole Reps/Minutes x4 reps Comments CGA for stand pivot transfer; performed multiple times during session. Cued marching steps for foot clearance, step back fully /c centering self front chair and slow descend UE support needed. PT-OP-T Assessment and Plan Start: 11/29/22 10:22 Freq: Status: Active Protocol: Document 02/08/23 14:07 SP (Rec: 02/08/23 14:31 SP [id number]) Physical Therapy Assessment Goals stairs Impairment stairs Seater Grinder Goal (LTG) Pt will be able to negotiate 5 steps using single railing SBA. NOT MET 01/02/23 LTG Duration 6-8 weeks ambulation Impairment ambulation Short Term Goal (STG) Pt will be able to ambulate > 200 feet using walking stick SBA. NOT MET: 175 FT STG Duration 3 weeks Senior Care Goal (LTG) Pt will be able to ambulate > 500 feet using walking stick or 4WW SBA. LTG Duration 6-8 weeks SPPB Impairment SPPB Impairment IE: 06/24 Seater Grinder Goal (LTG) Pt will improve SPPB by 2 points to a score of >7/12. ( MCID is 1 point improvement) NOT MET 01/02/23, CURRENT: LTG Duration 6-8 weeks 5x STS Impairment 5x STS Impairment IE: Unable to complete Short Term Goal (STG) Pt will be able to perform 5 sit<>stands from 22 inch height c/o UE assist. PARTIALLY MET STG Duration 3 weeks Seater Grinder Goal (LTG) Pt will be able to perform 5 sit<>stands from 20 inch height c/o UE assist. LTG Duration 6-8 weeks Assessment Summary Assessment Pt was able to increase resistance with shuttle recovery, cues for heel press and quad/glut fac for LE strengthening. Continued progression in stability against resistance, cues for elongated posture, increase foot clearance and COG over ARMANI during resisted side/f/b stepping to allow increase stabiltiy for community gait. Improves postural corrections with cuing reps. Continued education on safety back step fully and center self front chair before sitting for assurance sit properly in seat , take the time to complete even when tired, highest risk. Pt verbalized understanding. Physical Therapy Plan Frequency and Duration Frequency of Treatment 2x/Week Duration of treatment (weeks) 10 Plan of Care Start Date 11/29/22 Plan of Care End Date 02/27/23 Therapeutic Interventions Therapeutic Interventions Balance Training,Coordination Training,Gait Training,Home Exercise Program,Joint Mobilizations,Manual Therapy, Neuromuscular Re-education, Orthotic/Prosthetic Management ,Patient/Caregiver Education, Self-Care/Home Management,Soft Tissue Mobilization,Taping, Therapeutic Activities, Therapeutic Exercises Next Visit Focus/Plan Next Note Type Treatment Note Next Visit Plan Continue safe transfers, gait w/ 1-2 trek pole. POC: STS to prevent retropulsion, balance activities, BLE strengthening. Update HEP
--- NOTE | 2023-02-15 13:43 | PT.OTN ---
Current Diagnoses Polyneuropathy, unspecified (02/15/23) Unspecified abnormalities of gait and mobility (02/15/23) Physical Therapy Treatment Note PT-OP-A Visit Information Start: 11/29/22 10:22 Freq: Status: Active Protocol: Document 02/15/23 12:15 NM (Rec: 02/15/23 13:41 NM [id number]) Out-Patient Physical Therapy Visit Information Visit Information Visit Type Progress Note Visit Note KX modifier after visit 03/03 2023 Visit Start Time 12:15 Visit Stop Time 13:00 Total Visit Minutes 45 Visit Number 13 Evaluation Information Evaluation Date 11/29/22 PT-OP-B Current Condition Start: 11/29/22 10:22 Freq: Status: Active Protocol: Document 11/29/22 11:28 ED (Rec: 11/29/22 11:41 ED [id number]) Current Condition History of Current Condition Onset Date 2013 Current Complaints balance History of Current Condition Pt states that in May of 2013 he realized that he had bad balance. He states he does most of his locomotion via manual w/c. He lives on the second floor of an [facility] which has an elevator. He states that there is no need for him to walk there b/c he can just use his w/c. He states that he walks to get to his car and out of his car but not much else. Pt has been using the w/ c since about 2013. He will also use a walking stick. He owns a 4WW but does not use that often. He reports 2-3 falls in the past year. He states that sometimes his body will just collapse and he does not know why. 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 Treatment Goals Patient/Caregiver Goals Walk 1/4 of a mile PT-OP-C Subjective Start: 11/29/22 10:22 Freq: Status: Active Protocol: Document 02/15/23 12:15 NM (Rec: 02/15/23 13:41 NM [id number]) OP-PT Subjective Patient Comments Patient Comments Pt reports more confidence with movement, but reports minimal improvement since IE. He has not been compliant with HEP. He reports no recent falls. He reports fatigue today and arrived to clinic in his manual wheelchair. PT-OP-D Balance Start: 11/29/22 10:22 Freq: Status: Active Protocol: Document 11/29/22 11:28 ED (Rec: 11/29/22 11:41 ED [id number]) Balance Tests Single Limb Standing Single Limb- Right unable Single Limb- Left unable Semi-Tandem Standing Semi-Tandem Standing Balance 10 seconds Tandem Tandem Standing unable PT-OP-E Functional Tests Start: 11/29/22 10:22 Freq: Status: Active Protocol: Document 12/01/22 12:03 ED (Rec: 12/01/22 12:10 ED [id number]) Functional Tests 6 Minute Walk Test Distance 460 feet Device Used 4WW Comments required 1 seated rest break Four Step Square Test Score 42 Comments no AD; CGA - mod A for balance correction PT-OP-Q Treatments Start: 11/29/22 10:22 Freq: Status: Active Protocol: Document 02/15/23 12:15 NM (Rec: 02/15/23 13:41 NM [id number]) Therapeutic Exercises Standing Exercises Marching Standing Exercise Name hip flexor strengthening, alternating Side bilateral Resistance lvl 1 blue tb around thighs ( progress next time) Equipment Used ballerina bar, 2 finger UE support Reps/Minutes 2x15 ea Comments cues for slower, controlled motion; pt reports fatiguing Side steps Standing Exercise Name hip abduction strengthening Side bilateral Resistance lvl 1 blue tb (progress next time) Equipment Used band around thighs, 2 finger assist ballerina bar Reps/Minutes 2x20 ft, 1x8 ft Comments cues for neutral hip rot, slower trail leg; fatiguing Therapeutic Activity Therapeutic Activity Stairs Name 6 steps, R handrail use for balance, CGA to steady only Reps/Minutes 3 sets x4 steps Comments Pt demos fair BLE strength with ascent and less quad/ pelvic control during descent. Able to maintain balance with CGA, mild trunk sway. Most unbalanced with mod trunk sway during turning at top of stairs, reaching for hand rails for UE support. Fatiguing transfers Name /c 1 trek pole Reps/Minutes x4 reps Comments CGA for stand pivot transfer; performed multiple times during session. Cued marching steps for foot clearance, step back fully /c centering self front chair and slow descend UE support needed. SQUAT Name 5x STS (20 ht) Reps/Minutes 40 sec Comments Pt attempting to use table to stabilize with post BLE, cued to step slightly fwd. Pt still largely dependent on BLE for stabilization, but able to perform x5 STS from lower seated height without UE use. Cued for fwd reach and weight shift during ascent. Pt demos poor control for 3/5 eccentric lowerings, but able to control better using fwd weight shift during descent with cueing Gait Training Gait Activity trek pole Device Used 1 trek pole Level of Assistance close SBA with 1 instance CGA to steady, WC follow due to pt fatigue Surface stable Distance/Duration 240 ft, 2x 4m walk tests, multiple distances throughout session Treatment Focus endurance, normal gait, balance Comments Pt drags 1 trek pole despite PT cueing, only using it for balance during turns or as fatigues. PT cueing pt to use pole more consistently for balance, as he demos mild- moderate sway and stumbling gait especially as he fatigues . Pt is resistant to more stable AD. 2 instances of LOB when pt dragging trek pole, which pt uses wall to stabilize. Gait speed: ` PT-OP-T Assessment and Plan Start: 11/29/22 10:22 Freq: Status: Active Protocol: Document 02/15/23 12:15 NM (Rec: 02/15/23 13:41 NM [id number]) Physical Therapy Assessment Goals stairs Impairment stairs Care Home Goal (LTG) Pt will be able to negotiate 5 steps using single railing SBA. PROGRESSING 02/15/23: Pt able to navigate 3 sets of 4 6 stairs using 1 handrail (R) for balance, but CGA to steady NOT MET 01/02/23 LTG Duration 6-8 weeks PROGRESSING ambulation Impairment ambulation Short Term Goal (STG) Pt will be able to ambulate > 200 feet using walking stick SBA. 02/14/23: MET 240 ft with 1 trek pole SBA with occasional CGA to steady at end STG Duration 3 weeks Care Home Goal (LTG) Pt will be able to ambulate > 500 feet using walking stick or 4WW SBA. 02/14/23: NOT MET LTG Duration 6-8 weeks SPPB Impairment SPPB Impairment IE: 06/24 Care Home Goal (LTG) Pt will improve SPPB by 2 points to a score of >7/12. ( MCID is 1 point improvement) 02/14/23: PARTIALLY MET, current score 08/24 LTG Duration 6-8 weeks PARTIALLY MET 5x STS Impairment 5x STS Impairment IE: Unable to complete Short Term Goal (STG) Pt will be able to perform 5 sit<>stands from 22 inch height c/o UE assist. 02/14/23: MET, able to perform with 5x STS from 20 height without UE assist STG Duration 3 weeks Care Home Goal (LTG) Pt will be able to perform 5 sit<>stands from 20 inch height c/o UE assist. 02/14/23: PARTIALLY MET, able to perform with 5x STS from 20 height without UE assist but attempts to stabilize with plinth using posterior chain BLE LTG Duration 6-8 weeks PROGRESSING Progress Towards Goals Progress Towards Goals Progressing Toward Goals,Slow Progress due to Activity Tolerance Progress Comments Partially met 2, progressing toward other 2 goals. Still most limited in gait goal Assessment Summary Assessment Pt demos improvement in BLE strength since IE. Also demos improvement in balance, now SPPB 08/24; the most difficult motion is achieving tandem stance. However, he continues to be fall risk and fatigues easily. Pt does not use walking sticks regularly or FWW despite multiple attempts at educating pt and pt verbalizing understanding, although would benefit from greater stabilization. During gait, pt must be consistently cued to use AD for additional point of stability rather than dragging or lifting AD from ground. Able to ambulate x240 ft with trek pole before fatigue, an increase from previous sessions. Pt also navigated x12 stairs with 1 hand rail assist and CGA to stabilize; demos decreased quad control and pelvic drop during descent. HEP: standing march with band & UE support, side setps with band and UE support, sit to stand. Pt has been seen for balance impairments and BLE strength x12 since IE in Nov 2022. He is progressing toward LTGs and is meeting his STGs. He is most limited in his endurance and balance, especially during gait. Pt would benefit from skilled PT to address limitations in gait, balance, endurance, and BLE strength in order to improve activity tolerance, decrease fall risk, and improve QOL. Physical Therapy Plan Frequency and Duration Frequency of Treatment 2x/Week Duration of treatment (weeks) 8 Plan of Care Start Date 02/15/23 Plan of Care End Date 04/12/23 Therapeutic Interventions Therapeutic Interventions Balance Training,Coordination Training,Gait Training,Home Exercise Program,Joint Mobilizations,Manual Therapy, Neuromuscular Re-education, Orthotic/Prosthetic Management ,Patient/Caregiver Education, Self-Care/Home Management,Soft Tissue Mobilization,Taping, Therapeutic Activities, Therapeutic Exercises Next Visit Focus/Plan Next Note Type Treatment Note Next Visit Plan Continue safe transfers, gait w/ 1-2 trek pole. Trial 4ww for endurance and safety during gait. Next session: stairs/step ups with 1 Handrail, review HEP and progress; balance (tandem, semi-tandem, EO/EC on stable), resisted fwd/bwd ambulation POC: STS to prevent retropulsion, balance activities, BLE strengthening.
--- NOTE | 2023-02-15 13:43 | PT.OPPOC ---
Physical, Occupational & Speech Therapy At [facility] Current Diagnoses Polyneuropathy, unspecified (02/15/23) Unspecified abnormalities of gait and mobility (02/15/23) Visit Care Team Role Provider Type Ryan Rice DO Family Provider Physician Primary Care Provider Specialty: Family Practice Address: [address] [place] [address], [id number] Email: [email or web address] Tremayne Perez MD Attending Provider Non-Staff Referring Provider Specialty: Neurology Psychiatry Address: [address] [place] [address], [id number], [place], [address] Email: Plan Of Care PT-OP-T Assessment and Plan Start: 11/29/22 10:22 Freq: Status: Active Protocol: Document 02/15/23 12:15 NM (Rec: 02/15/23 13:41 NM [id number]) Physical Therapy Assessment Goals stairs Impairment stairs Care Home Goal (LTG) Pt will be able to negotiate 5 steps using single railing SBA. PROGRESSING 02/15/23: Pt able to navigate 3 sets of 4 6 stairs using 1 handrail (R) for balance, but CGA to steady NOT MET 01/02/23 LTG Duration 6-8 weeks PROGRESSING ambulation Impairment ambulation Short Term Goal (STG) Pt will be able to ambulate > 200 feet using walking stick SBA. 02/14/23: MET 240 ft with 1 trek pole SBA with occasional CGA to steady at end STG Duration 3 weeks Automat Car Attendant Goal (LTG) Pt will be able to ambulate > 500 feet using walking stick or 4WW SBA. 02/14/23: NOT MET LTG Duration 6-8 weeks SPPB Impairment SPPB Impairment IE: 5/ Care Home Goal (LTG) Pt will improve SPPB by 2 points to a score of >7/12. ( MCID is 1 point improvement) 02/14/23: PARTIALLY MET, current score 7/12 LTG Duration 6-8 weeks PARTIALLY MET 5x STS Impairment 5x STS Impairment IE: Unable to complete Short Term Goal (STG) Pt will be able to perform 5 sit<>stands from 22 inch height c/o UE assist. 02/14/23: MET, able to perform with 5x STS from 20 height without UE assist STG Duration 3 weeks Care Home Goal (LTG) Pt will be able to perform 5 sit<>stands from 20 inch height c/o UE assist. 02/14/23: PARTIALLY MET, able to perform with 5x STS from 20 height without UE assist but attempts to stabilize with plinth using posterior chain BLE LTG Duration 6-8 weeks PROGRESSING Progress Towards Goals Progress Towards Goals Progressing Toward Goals,Slow Progress due to Activity Tolerance Progress Comments Partially met 2, progressing toward other 2 goals. Still most limited in gait goal Assessment Summary Assessment Pt demos improvement in BLE strength since IE. Also demos improvement in balance, now SPPB 08/24; the most difficult motion is achieving tandem stance. However, he continues to be fall risk and fatigues easily. Pt does not use walking sticks regularly or FWW despite multiple attempts at educating pt and pt verbalizing understanding, although would benefit from greater stabilization. During gait, pt must be consistently cued to use AD for additional point of stability rather than dragging or lifting AD from ground. Able to ambulate x240 ft with trek pole before fatigue, an increase from previous sessions. Pt also navigated x12 stairs with 1 hand rail assist and CGA to stabilize; demos decreased quad control and pelvic drop during descent. HEP: standing april with band & UE support, side setps with band and UE support, sit to stand. Pt has been seen for balance impairments and BLE strength x12 since IE in Nov 2022. He is progressing toward LTGs and is meeting his STGs. He is most limited in his endurance and balance, especially during gait. Pt would benefit from skilled PT to address limitations in gait, balance, endurance, and BLE strength in order to improve activity tolerance, decrease fall risk, and improve QOL. Physical Therapy Plan Frequency and Duration Frequency of Treatment 2x/Week Duration of treatment (weeks) 8 Plan of Care Start Date 02/15/23 Plan of Care End Date 04/12/23 Therapeutic Interventions Therapeutic Interventions Balance Training,Coordination Training,Gait Training,Home Exercise Program,Joint Mobilizations,Manual Therapy, Neuromuscular Re-education, Orthotic/Prosthetic Management ,Patient/Caregiver Education, Self-Care/Home Management,Soft Tissue Mobilization,Taping, Therapeutic Activities, Therapeutic Exercises Next Visit Focus/Plan Next Note Type Treatment Note Next Visit Plan Continue safe transfers, gait w/ 1-2 trek pole. Trial 4ww for endurance and safety during gait. Next session: stairs/step ups with 1 Handrail, review HEP and progress; balance (tandem, semi-tandem, EO/EC on stable), resisted fwd/bwd ambulation POC: STS to prevent retropulsion, balance activities, BLE strengthening. Plan of Care Dates Plan of Care Start Date 02/15/23 Plan of Care End Date 04/12/23 Electronically Signed by: Araseli Maier, PT 02/15/23 1652 If you are in agreement with this Plan of Care, please return a signed and dated copy. I have reviewed this Plan of Care and certify that the skilled therapy services above are required to meet the patient?s needs. Physician Signature Date Printed Name and Credentials Clinical Instructor Signature Printed Name and Credentials
--- NOTE | 2023-02-17 15:15 | PT.OTN ---
Current Diagnoses Polyneuropathy, unspecified (02/17/23) Unspecified abnormalities of gait and mobility (02/17/23) Physical Therapy Treatment Note PT-OP-A Visit Information Start: 11/29/22 10:22 Freq: Status: Active Protocol: Document 02/17/23 12:17 NM (Rec: 02/17/23 13:03 NM [id number]) Out-Patient Physical Therapy Visit Information Visit Information Visit Type Treatment Note Visit Note KX modifier after visit 04/03 2023 Visit Start Time 12:15 Visit Stop Time 13:00 Total Visit Minutes 45 Visit Number 14 Evaluation Information Evaluation Date 11/29/22 PT-OP-B Current Condition Start: 11/29/22 10: Freq: Status: Active Protocol: Document 11/29/22 11:28 ED (Rec: 11/29/22 11:41 ED [id number]) Current Condition History of Current Condition Onset Date 2013 Current Complaints balance History of Current Condition Pt states that in May of 2013 he realized that he had bad balance. He states he does most of his locomotion via manual w/c. He lives on the second floor of an [facility] which has an elevator. He states that there is no need for him to walk there b/c he can just use his w/c. He states that he walks to get to his car and out of his car but not much else. Pt has been using the w/ c since about 2013. He will also use a walking stick. He owns a 4WW but does not use that often. He reports 2-3 falls in the past year. He states that sometimes his body will just collapse and he does not know why. 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 Treatment Goals Patient/Caregiver Goals Walk 1/4 of a mile PT-OP-C Subjective Start: 11/29/22 10:22 Freq: Status: Active Protocol: Document 02/17/23 12:17 NM (Rec: 02/17/23 13:03 NM [id number]) OP-PT Subjective Patient Comments Patient Comments Pt reports soreness after last session in his BLE. He did not do his exercises yesterday or today. He is fatigued but in good spirits. PT-OP-D Balance Start: 11/29/22 10:22 Freq: Status: Active Protocol: Document 10/17/23 11:28 ED (Rec: 11/29/22 11:41 ED [id number]) Balance Tests Single Limb Standing Single Limb- Right unable Single Limb- Left unable Semi-Tandem Standing Semi-Tandem Standing Balance 10 seconds Tandem Tandem Standing unable PT-OP-E Functional Tests Start: 11/29/22 10:22 Freq: Status: Active Protocol: Document 12/01/22 12:03 ED (Rec: 12/01/22 12:10 ED [id number]) Functional Tests 6 Minute Walk Test Distance 460 feet Device Used 4WW Comments required 1 seated rest break Four Step Square Test Score 42 Comments no AD; CGA - mod A for balance correction PT-OP-Q Treatments Start: 11/29/22 10:22 Freq: Status: Active Protocol: Document 02/17/23 12:17 NM (Rec: 02/17/23 13:03 NM [id number]) Gym Equipment Shuttle Recovery Unilateral Squats Resistance 50# (navy&teal band) Shuttle Recovery Platform Stable Reps/Time 1x10; fatiguing, cues to prevent knee valgus Bilateral Squats Details [place] green tb around thighs for hip abd Resistance 87# (3 dark navy) Shuttle Recovery Platform Stable Reps/Time 3x10 reps; fewer cues to prevent knee valgus, cues to keep on track Therapeutic Exercises Standing Exercises Marching Standing Exercise Name hip flexor strengthening, alternating- HEP review Side bilateral Resistance lvl 2 teal band around feet Equipment Used ballerina bar, 2 finger UE support Reps/Minutes 2x15 ea Comments cues for slower, controlled motion; pt reports fatiguing Side steps Standing Exercise Name hip abduction strengthening- HEP review Side bilateral Resistance lvl 2 blue tb around Equipment Used band around ankles, 2 finger assist //bars Reps/Minutes 3x10 ft ea direction Comments cues for neutral hip rot, slower trail leg; fatiguing band walk Standing Exercise Name fwd and retro walking- HEP review Side bilateral Resistance teal blue tb around thighs Equipment Used //bars for 2 finger support (1 hand fwd, 2 hand retro) Reps/Minutes x10 ft ea direction Comments cues for slower gait, controlled stance; CGA to steady Neuro Re-Education Treatment Balance Activities Tandem/Semi-tandem/Narrow Surface stable Equipment // bars Reps/Duration 4x30 ea Comments 2 hand support > 2 finger support, except narrow stance (no UE support). CGA to steady with occasional min A. During narrow stance, added horizontal head turns to challenge vestibular and visual systems. step taps, step up/back down Details step taps Surface stable, //bars Equipment 4 step Reps/Duration 4x30 Comments Cues for alternating tap, 2 fingers support 1 hand only, CGA to steady. Pt also cued for controlled motion. LLE stronger than RLE, RLE with poor quad control during stance. PT-OP-T Assessment and Plan Start: 11/29/22 10:22 Freq: Status: Active Protocol: Document 02/17/23 12:17 NM (Rec: 02/17/23 13:03 NM [id number]) Physical Therapy Assessment Goals stairs Impairment stairs Retirement Goal (LTG) Pt will be able to negotiate 5 steps using single railing SBA. PROGRESSING 02/15/23: Pt able to navigate 3 sets of 4 6 stairs using 1 handrail (R) for balance, but CGA to steady NOT MET 01/02/23 LTG Duration 6-8 weeks PROGRESSING ambulation Impairment ambulation Short Term Goal (STG) Pt will be able to ambulate > 200 feet using walking stick SBA. 02/14/23: MET 240 ft with 1 trek pole SBA with occasional CGA to steady at end STG Duration 3 weeks Retirement Goal (LTG) Pt will be able to ambulate > 500 feet using walking stick or 4WW SBA. 02/14/23: NOT MET LTG Duration 6-8 weeks SPPB Impairment SPPB Impairment IE: 5 Retirement Goal (LTG) Pt will improve SPPB by 2 points to a score of >7/12. ( MCID is 1 point improvement) 02/14/23: PARTIALLY MET, current score 7/12 LTG Duration 6-8 weeks PARTIALLY MET 5x STS Impairment 5x STS Impairment IE: Unable to complete Short Term Goal (STG) Pt will be able to perform 5 sit<>stands from 22 inch height c/o UE assist. 02/14/23: MET, able to perform with 5x STS from 20 height without UE assist STG Duration 3 weeks Retirement Goal (LTG) Pt will be able to perform 5 sit<>stands from 20 inch height c/o UE assist. 02/14/23: PARTIALLY MET, able to perform with 5x STS from 20 height without UE assist but attempts to stabilize with plinth using posterior chain BLE LTG Duration 6-8 weeks PROGRESSING Assessment Summary Assessment Continued with BLE strengthening using leg press, did not progress resistance due to pt fatigue. RLE is more limited than LLE. He requires rests between sets and attempts to prolong rest breaks with conversation, so requires cues to keep on task. Progressed resistance to lvl 2 for side steps, marching and resisted ambulation fwd/bwd, in addition to moving band more distally for greater resistance. Requires at least 2 finger to 1 hand rail assist for balance, CGA. Pt requires cues for correct execution, slow and controlled motion, and to prevent compensations with hip rotation. Pt is at least CGA to steady balance exercises. Continued with tandem stance, semi-tandem stance, narrow stance and added head turns; pt progressing to 2 finger assist 1-2 hands compared to full hand assist on parallel bars. He is limited by neuropathy and foot deformities. Pt would benefit from skilled PT to progress BLE loading, balance and gait training in order to reduce fall risk, improve balance, and improve activity tolerance. Physical Therapy Plan Frequency and Duration Frequency of Treatment 2x/Week Duration of treatment (weeks) 8 Plan of Care Start Date 02/15/23 Plan of Care End Date 04/12/23 Therapeutic Interventions Therapeutic Interventions Balance Training,Coordination Training,Gait Training,Home Exercise Program,Joint Mobilizations,Manual Therapy, Neuromuscular Re-education, Orthotic/Prosthetic Management ,Patient/Caregiver Education, Self-Care/Home Management,Soft Tissue Mobilization,Taping, Therapeutic Activities, Therapeutic Exercises Next Visit Focus/Plan Next Note Type Treatment Note Next Visit Plan Continue safe transfers, gait w/ 1-2 trek pole. Trial 4ww for endurance and safety during gait. Next session: stairs/step ups with 1 Handrail, review HEP and progress; balance (tandem, semi-tandem, EO/EC on stable), resisted fwd/bwd ambulation. POC: STS to prevent retropulsion, balance activities, BLE strengthening.
--- NOTE | 2023-02-20 15:16 | PT.OTN ---
Current Diagnoses Polyneuropathy, unspecified (02/20/23) Unspecified abnormalities of gait and mobility (02/20/23) Physical Therapy Treatment Note PT-OP-A Visit Information Start: 11/29/22 10:22 Freq: Status: Active Protocol: Document 02/20/23 12:16 NM (Rec: 02/20/23 13:02 NM [id number]) Out-Patient Physical Therapy Visit Information Visit Information Visit Type Treatment Note Visit Note KX modifier after visit 05/02 2023 Visit Start Time 12:20 Visit Stop Time 13:00 Total Visit Minutes 40 Visit Number 15 Evaluation Information Evaluation Date 11/29/22 PT-OP-B Current Condition Start: 11/29/22 10: Freq: Status: Active Protocol: Document 11/29/22 11:28 ED (Rec: 11/29/22 11:41 ED [id number]) Current Condition History of Current Condition Onset Date 2013 Current Complaints balance History of Current Condition Pt states that in May of 2013 he realized that he had bad balance. He states he does most of his locomotion via manual w/c. He lives on the second floor of an [facility] which has an elevator. He states that there is no need for him to walk there b/c he can just use his w/c. He states that he walks to get to his car and out of his car but not much else. Pt has been using the w/ c since about 2013. He will also use a walking stick. He owns a 4WW but does not use that often. He reports 2-3 falls in the past year. He states that sometimes his body will just collapse and he does not know why. 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 Treatment Goals Patient/Caregiver Goals Walk 1/4 of a mile PT-OP-C Subjective Start: 11/29/22 10:22 Freq: Status: Active Protocol: Document 02/20/23 12:16 NM (Rec: 02/20/23 13:02 NM [id number]) OP-PT Subjective Patient Comments Patient Comments He reports soreness in BLE after last session. He reports compliance with his HEP but has difficulty with finding a place to perform his HEP due to limited space in his living quarters. PT-OP-D Balance Start: 11/29/22 10:22 Freq: Status: Active Protocol: Document 11/29/22 11:28 ED (Rec: 11/29/22 11:41 ED [id number]) Balance Tests Single Limb Standing Single Limb- Right unable Single Limb- Left unable Semi-Tandem Standing Semi-Tandem Standing Balance 10 seconds Tandem Tandem Standing unable PT-OP-E Functional Tests Start: 11/29/22 10:22 Freq: Status: Active Protocol: Document 12/01/22 12:03 ED (Rec: 12/01/22 12:10 ED [id number]) Functional Tests 6 Minute Walk Test Distance 460 feet Device Used 4WW Comments required 1 seated rest break Four Step Square Test Score 42 Comments no AD; CGA - mod A for balance correction PT-OP-Q Treatments Start: 11/29/22 10:22 Freq: Status: Active Protocol: Document 02/20/23 12:16 NM (Rec: 02/20/23 13:02 NM [id number]) Therapeutic Exercises Standing Exercises Sit to stand Standing Exercise Name from chair without UE use Side bilateral Equipment Used fwd reach, scoot to front of chair Reps/Minutes 1x10, also for various activities during session Comments cue for anterior weight shift, use of BLE vs UE as pt is capable w/o UE Step ups Standing Exercise Name 6 steps, R hand rail use (2 fingers, 1 hand prn), CGA for balance Side bilateral Equipment Used cues also for decreased momentum, improve with reps; L worse than R Reps/Minutes 3x8 steps ea leg Comments demos hip drop; cues for stepping entirely onto step, slow/control Lateral step ups Standing Exercise Name 4 steps, 1 hand rail use ( whole hand); CGA to min A for balance Side bilateral Equipment Used attempts to use momentum with LLE leading Reps/Minutes 1x10 ea Comments cues for larger steps, upright posture, glute activation Neuro Re-Education Treatment Balance Activities Weight shift Details within //bars to encourage pt to limit posterior lean onto WC Surface stable Equipment hands hovering over //bars for prn support Reps/Duration 1x30 ea direction Comments Shift weight fwd/bwd, M/L, diagonal, staggered stance, and rocker shift. Pt tendency to lean posteriorly using manual w/c behind BLE to stabilize; requires cues to step away from w/c and shift weight over feet for improved proprioceptive awareness. Pt only prn support for hands, hovering over //bars. Demos good diagonal shifts, rocker shift with heel/toe, medial/ lateral shift; however, demos decreased awareness of fwd/bwd , difficulty with shifting fwd and has tendency to retropulse and step bwd even with small shifts fwd. Requires cues for not shifting onto toes for increased stability. standing shoulder ext Details [place] green tb from elevated height Surface stable Reps/Duration 1x15 Comments Demos mild BLE instability during posterior arm movement. Dynamic balance improves with repetitions although pt fatigues easily. He is able to maintain [place]MANI without LOB. Cues for upright posture to prevent fwd trunk lean, cues for ant weight shift. standing row Details [place] green tb from mid-height Surface stable Reps/Duration 1x15 Comments Demos moderate instability during rowing motion. Pt attempting to step bwd for stability toward w/c behind pt but unable to maintain balance during step. Min-Mod A for stability. Cued for fwd weight shift during rowing motion as pt is posteriorly shifting at ankles and hips, and hinging at hip which disrupts ability to stabilize. PT-OP-T Assessment and Plan Start: 11/29/22 10:22 Freq: Status: Active Protocol: Document 02/20/23 12:16 NM (Rec: 02/20/23 13:02 NM [id number]) Physical Therapy Assessment Goals stairs Impairment stairs Architectural Engineering Teacher Goal (LTG) Pt will be able to negotiate 5 steps using single railing SBA. PROGRESSING 02/15/23: Pt able to navigate 3 sets of 4 6 stairs using 1 handrail (R) for balance, but CGA to steady NOT MET 01/02/23 LTG Duration 6-8 weeks PROGRESSING ambulation Impairment ambulation Short Term Goal (STG) Pt will be able to ambulate > 200 feet using walking stick SBA. 02/14/23: MET 240 ft with 1 trek pole SBA with occasional CGA to steady at end STG Duration 3 weeks Residential Goal (LTG) Pt will be able to ambulate > 500 feet using walking stick or 4WW SBA. 02/14/23: NOT MET LTG Duration 6-8 weeks SPPB Impairment SPPB Impairment IE: 06/24 Architectural Engineering Teacher Goal (LTG) Pt will improve SPPB by 2 points to a score of >7/12. ( MCID is 1 point improvement) 02/14/23: PARTIALLY MET, current score 7/12 LTG Duration 6-8 weeks PARTIALLY MET 5x STS Impairment 5x STS Impairment IE: Unable to complete Short Term Goal (STG) Pt will be able to perform 5 sit<>stands from 22 inch height c/o UE assist. 02/14/23: MET, able to perform with 5x STS from 20 height without UE assist STG Duration 3 weeks Residential Goal (LTG) Pt will be able to perform 5 sit<>stands from 20 inch height c/o UE assist. 02/14/23: PARTIALLY MET, able to perform with 5x STS from 20 height without UE assist but attempts to stabilize with plinth using posterior chain BLE LTG Duration 6-8 weeks PROGRESSING Assessment Summary Assessment Pt continues to fatigue easily with BLE strengthening activities and standing activities. During fwd and lateral step ups, pt attempts to use momentum to ascend steps rather than quad/glute activation. Requires moderate/ consistent cues for slow/ controlled motion for improved BLE activation and to limit momentum; CGA with occasional min A for balance. Pt cued to limit UE use to 1 UE/2 finger support as able. Pt attempts to stall session with conversation and requires several cues to remain on task . Performed standing shoulder ext and row as dynamic balance activity to assist pt with ankle strategy; however, pt demos posterior weight shift and lean at hips, causing him to step bwd or retropulse toward his chair and is min- mod A to stabilize. Followed up with weight shifting activities with feet in several different positions to promote better proprioceptive awareness of position in space and to decrease posterior lean. Pt demos good weight shifting in all directions except anterior shift. Pt would benefit from skilled PT to progressively load BLE, improve balance, and for gait training to improve safety during ambulation/ stairs in order to decrease fall risk and improve safety awareness. Physical Therapy Plan Frequency and Duration Frequency of Treatment 2x/Week Duration of treatment (weeks) 8 Plan of Care Start Date 02/15/23 Plan of Care End Date 04/12/23 Therapeutic Interventions Therapeutic Interventions Balance Training,Coordination Training,Gait Training,Home Exercise Program,Joint Mobilizations,Manual Therapy, Neuromuscular Re-education, Orthotic/Prosthetic Management ,Patient/Caregiver Education, Self-Care/Home Management,Soft Tissue Mobilization,Taping, Therapeutic Activities, Therapeutic Exercises Next Visit Focus/Plan Next Note Type Treatment Note Next Visit Plan Continue safe transfers, gait w/ 1-2 trek pole. Trial 4ww for endurance and safety during gait. Next session: stairs/step ups with 1 Handrail, review HEP and progress; balance (tandem, semi-tandem, EO/EC on stable), resisted fwd/bwd ambulation. Intro stepping strategy for dynamic balance, stability; cont ant weight shift to prevent retropulsion POC: STS to prevent retropulsion, balance activities, BLE strengthening.
--- NOTE | 2023-02-22 14:02 | PT.OTN ---
Current Diagnoses Polyneuropathy, unspecified (02/22/23) Unspecified abnormalities of gait and mobility (02/22/23) Physical Therapy Treatment Note PT-OP-A Visit Information Start: 11/29/22 10:22 Freq: Status: Active Protocol: Document 02/22/23 12:16 NM (Rec: 02/22/23 13:00 NM [id number]) Out-Patient Physical Therapy Visit Information Visit Information Visit Type Treatment Note Visit Note KX modifier after th visit 06/02 2023 Visit Start Time 12:16 Visit Stop Time 12:55 Total Visit Minutes 39 Visit Number 16 Evaluation Information Evaluation Date 11/29/22 PT-OP-B Current Condition Start: 11/29/22 10: Freq: Status: Active Protocol: Document 11/29/22 11:28 ED (Rec: 11/29/22 11:41 ED [id number]) Current Condition History of Current Condition Onset Date 2013 Current Complaints balance History of Current Condition Pt states that in May of 2013 he realized that he had bad balance. He states he does most of his locomotion via manual w/c. He lives on the second floor of an [facility] which has an elevator. He states that there is no need for him to walk there b/c he can just use his w/c. He states that he walks to get to his car and out of his car but not much else. Pt has been using the w/ c since about 2013. He will also use a walking stick. He owns a 4WW but does not use that often. He reports 2-3 falls in the past year. He states that sometimes his body will just collapse and he does not know why. 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 Treatment Goals Patient/Caregiver Goals Walk 1/4 of a mile PT-OP-C Subjective Start: 11/29/22 10:22 Freq: Status: Active Protocol: Document 02/22/23 12:16 NM (Rec: 02/22/23 13:00 NM [id number]) OP-PT Subjective Patient Comments Patient Comments Pt report soreness in BLE after last session. He also has R abdominal pain today. Pt has to leave a little early for a meeting PT-OP-D Balance Start: 11/29/22 10:22 Freq: Status: Active Protocol: Document 11/29/22 11:28 ED (Rec: 11/29/22 11:41 ED [id number]) Balance Tests Single Limb Standing Single Limb- Right unable Single Limb- Left unable Semi-Tandem Standing Semi-Tandem Standing Balance 10 seconds Tandem Tandem Standing unable PT-OP-E Functional Tests Start: 11/29/22 10:22 Freq: Status: Active Protocol: Document 12/01/22 12:03 ED (Rec: 12/01/22 12:10 ED [id number]) Functional Tests 6 Minute Walk Test Distance 460 feet Device Used 4WW Comments required 1 seated rest break Four Step Square Test Score 42 Comments no AD; CGA - mod A for balance correction PT-OP-Q Treatments Start: 11/29/22 10:22 Freq: Status: Active Protocol: Document 02/22/23 12:16 NM (Rec: 02/22/23 13:00 NM [id number]) Gym Equipment Shuttle Recovery Unilateral Squats Resistance 1. 67# (navy and teal), 2. 50# Shuttle Recovery Platform Stable Reps/Time 1. 1x3, 2. 1x10; resistance more difficult Bilateral Squats Resistance 100# (2 navy) Shuttle Recovery Platform Stable Reps/Time 2x10; minimal knee valgus Therapeutic Activity Therapeutic Activity deadlift Name 2# deadlift on dowel Reps/Minutes 2x8 Comments CGA with occasional min A for balance. Pt cued to maintain weight over mid-foot for stable ARMANI. Requires prn cues for anterior weight shift to prevent occasional retropulsion with return to standing. SQUAT Name STS Reps/Minutes 1x5 Comments CGA for stability. Pt depending less on chair to stabilize in standing with posterio chain muscles. Cued for fwd reach for fwd weight shift with ascent and descent. Improved eccentric lowering with descent using fwd reach compared to previous session. Gait Training Gait Activity 4WW Device Used 4WW Level of Assistance SBA with occasional CGA Surface stable Distance/Duration 4 laps x165 ft = 660 ft Treatment Focus nml gait, foot clearance Comments Improved stability in gait compared to ambulation using walking stick or no AD. Demos fewer instances of sway and improved BLE control. Requires cues to limit foot crossing during swing, foot clearance, and to keep 4WW closer to pt for stability. PT-OP-T Assessment and Plan Start: 11/29/22 10:22 Freq: Status: Active Protocol: Document 02/22/23 12:16 NM (Rec: 02/22/23 13:00 NM [id number]) Physical Therapy Assessment Goals stairs Impairment stairs Precipitator Supervisor Goal (LTG) Pt will be able to negotiate 5 steps using single railing SBA. PROGRESSING 02/15/23: Pt able to navigate 3 sets of 4 6 stairs using 1 handrail (R) for balance, but CGA to steady NOT MET 01/02/23 LTG Duration 6-8 weeks PROGRESSING ambulation Impairment ambulation Short Term Goal (STG) Pt will be able to ambulate > 200 feet using walking stick SBA. 02/14/23: MET 240 ft with 1 trek pole SBA with occasional CGA to steady at end STG Duration 3 weeks Precipitator Supervisor Goal (LTG) Pt will be able to ambulate > 500 feet using walking stick or 4WW SBA. 02/22/23: 660 ft with 4WW and SBA, cues for foot clearance 02/14/23: NOT MET LTG Duration 6-8 weeks MET SPPB Impairment SPPB Impairment IE: 06/24 Alf Goal (LTG) Pt will improve SPPB by 2 points to a score of >7/12. ( MCID is 1 point improvement) 02/14/23: PARTIALLY MET, current score 7/12 LTG Duration 6-8 weeks PARTIALLY MET 5x STS Impairment 5x STS Impairment IE: Unable to complete Short Term Goal (STG) Pt will be able to perform 5 sit<>stands from 22 inch height c/o UE assist. 02/14/23: MET, able to perform with 5x STS from 20 height without UE assist STG Duration 3 weeks Alf Goal (LTG) Pt will be able to perform 5 sit<>stands from 20 inch height c/o UE assist. 02/14/23: PARTIALLY MET, able to perform with 5x STS from 20 height without UE assist but attempts to stabilize with plinth using posterior chain BLE LTG Duration 6-8 weeks PROGRESSING Assessment Summary Assessment Continued with BLE quad and glute strengthening. Progressed resistance with B squats on legpress. Pt performed well with minimal knee valgus today, minimal cuing. Trialed 67# for single leg squat on leg press, but pt unable to perform for more than a few reps. Initiated deadlifts with 2# dowel for posterior chain strengthening; pt requires cues to maintain ARMANI over mid-foot, cues for occasional anterior weight shift to limit retropulsion; CGA with occasional min A for balance. During gait training with 4WW, pt demos improved stability and endurance with a distance up to 660 ft with close SBA, the farthest the pt has ambulated in PT. Pt demos occasional LE crossing and requires cues for foot clearance and to keep 4WW closer. Pt demos much more stability during gait with 4WW than walking stick, which pt verbalizes. Pt would benefit from skilled PT for further gait/balance training and progressive BLE loading in order to reduce fall risk, improve balance, and improve activity tolerance. Physical Therapy Plan Frequency and Duration Frequency of Treatment 2x/Week Duration of treatment (weeks) 8 Plan of Care Start Date 02/15/23 Plan of Care End Date 04/12/23 Therapeutic Interventions Therapeutic Interventions Balance Training,Coordination Training,Gait Training,Home Exercise Program,Joint Mobilizations,Manual Therapy, Neuromuscular Re-education, Orthotic/Prosthetic Management ,Patient/Caregiver Education, Self-Care/Home Management,Soft Tissue Mobilization,Taping, Therapeutic Activities, Therapeutic Exercises Next Visit Focus/Plan Next Note Type Treatment Note Next Visit Plan Continue safe transfers, gait w/ 4ww for endurance and . Next session: deadlifts, stairs/step ups with 1 Handrail, review HEP and progress; balance (tandem, semi-tandem, EO/EC on stable), resisted fwd/bwd ambulation. Intro stepping strategy for dynamic balance, stability; cont ant weight shift to prevent retropulsion POC: STS to prevent retropulsion, balance activities, BLE strengthening.
--- NOTE | 2023-02-27 11:30 | PT.OTN ---
Current Diagnoses Polyneuropathy, unspecified (02/27/23) Unspecified abnormalities of gait and mobility (02/27/23) Physical Therapy Treatment Note PT-OP-A Visit Information Start: 11/29/22 10:22 Freq: Status: Active Protocol: Document 02/27/23 10:33 NM (Rec: 02/27/23 11:29 NM [id number]) Out-Patient Physical Therapy Visit Information Visit Information Visit Type Treatment Note Visit Note KX modifier after th visit 07/02 2023 Visit Start Time 10:34 Visit Stop Time 11:15 Total Visit Minutes 41 Visit Number 17 PT-OP-B Current Condition Start: 11/29/22 10:22 Freq: Status: Active Protocol: Document 11/29/22 11:28 ED (Rec: 11/29/22 11:41 ED [id number]) Current Condition History of Current Condition Onset Date 2013 Current Complaints balance History of Current Condition Pt states that in May of 2013 he realized that he had bad balance. He states he does most of his locomotion via manual w/c. He lives on the second floor of an [facility] which has an elevator. He states that there is no need for him to walk there b/c he can just use his w/c. He states that he walks to get to his car and out of his car but not much else. Pt has been using the w/ c since about 2013. He will also use a walking stick. He owns a 4WW but does not use that often. He reports 2-3 falls in the past year. He states that sometimes his body will just collapse and he does not know why. 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 Treatment Goals Patient/Caregiver Goals Walk 1/4 of a mile PT-OP-C Subjective Start: 11/29/22 10:22 Freq: Status: Active Protocol: Document 02/27/23 10:33 NM (Rec: 02/27/23 11:29 NM [id number]) OP-PT Subjective Patient Comments Patient Comments Pt reports soreness after last session BLE but no pain. Improved compliance with HEP, but not everyday. No abdominal pain. PT-OP-D Balance Start: 11/29/22 10:22 Freq: Status: Active Protocol: Document 11/29/22 11:28 ED (Rec: 11/29/22 11:41 ED [id number]) Balance Tests Single Limb Standing Single Limb- Right unable Single Limb- Left unable Semi-Tandem Standing Semi-Tandem Standing Balance 10 seconds Tandem Tandem Standing unable PT-OP-E Functional Tests Start: 11/29/22 10:22 Freq: Status: Active Protocol: Document 12/01/22 12:03 ED (Rec: 12/01/22 12:10 ED [id number]) Functional Tests 6 Minute Walk Test Distance 460 feet Device Used 4WW Comments required 1 seated rest break Four Step Square Test Score 42 Comments no AD; CGA - mod A for balance correction PT-OP-Q Treatments Start: 11/29/22 10:22 Freq: Status: Active Protocol: Document 02/27/23 10:33 NM (Rec: 02/27/23 11:29 NM [id number]) Therapeutic Exercises Sitting Exercises Hip abduction pulses Side bilateral Resistance teal lvl 2 tb around thighs Reps/Minutes 10x3 Comments cues for hip hinge Standing Exercises Hip ext Standing Exercise Name reports L easier than R Side bilateral Resistance lvl 2 teal tb around thighs Equipment Used elevated plinth to simulate counter top at home Reps/Minutes 1x10 Comments slight fwd trunk lean but cued not to lean fwd further with hip ext Therapeutic Activity Therapeutic Activity deadlift Name 4# deadlift on dowel Reps/Minutes 2x8 Comments CGA with occasional min A for balance. Pt cued to maintain weight over mid-foot for stable ARMANI. Requires prn cues for anterior weight shift to prevent occasional retropulsion with return to standing, cues also for upright posture to promote trunk ext and glute activation . Stairs Name 6 steps, 1 HRA Reps/Minutes 3 reps x 4 stairs Comments CGA to steady. Reciprocal gait but leads with RLE. Alternates which hand rail used for balance. SQUAT Name STS Reps/Minutes 2x5 Comments Close SBA with occasional CGA for stability. Pt depending less on chair to stabilize in standing with posterior chain muscles. Cued for fwd reach for fwd weight shift with ascent and descent. Improved eccentric lowering with descent using fwd reach compared to previous session. Added teal band around thighs for cue to prevent knee valgus and hip abd PT-OP-T Assessment and Plan Start: 11/29/22 10:22 Freq: Status: Active Protocol: Document 02/27/23 10:33 NM (Rec: 02/27/23 11:29 NM [id number]) Physical Therapy Assessment Goals stairs Impairment stairs Nursing Home Goal (LTG) Pt will be able to negotiate 5 steps using single railing SBA. PROGRESSING 02/15/23: Pt able to navigate 3 sets of 4 6 stairs using 1 handrail (R) for balance, but CGA to steady NOT MET 01/02/23 LTG Duration 6-8 weeks PROGRESSING ambulation Impairment ambulation Short Term Goal (STG) Pt will be able to ambulate > 200 feet using walking stick SBA. 02/14/23: MET 240 ft with 1 trek pole SBA with occasional CGA to steady at end STG Duration 3 weeks Manager Of Financial Planning Goal (LTG) Pt will be able to ambulate > 500 feet using walking stick or 4WW SBA. 02/22/23: 660 ft with 4WW and SBA, cues for foot clearance 02/14/23: NOT MET LTG Duration 6-8 weeks MET SPPB Impairment SPPB Impairment IE: 06/24 Nursing Home Goal (LTG) Pt will improve SPPB by 2 points to a score of >7/12. ( MCID is 1 point improvement) 02/14/23: PARTIALLY MET, current score 7/12 LTG Duration 6-8 weeks PARTIALLY MET 5x STS Impairment 5x STS Impairment IE: Unable to complete Short Term Goal (STG) Pt will be able to perform 5 sit<>stands from 22 inch height c/o UE assist. 02/14/23: MET, able to perform with 5x STS from 20 height without UE assist STG Duration 3 weeks Manager Of Financial Planning Goal (LTG) Pt will be able to perform 5 sit<>stands from 20 inch height c/o UE assist. 02/14/23: PARTIALLY MET, able to perform with 5x STS from 20 height without UE assist but attempts to stabilize with plinth using posterior chain BLE LTG Duration 6-8 weeks PROGRESSING Assessment Summary Assessment Pt demonstrates improved balance during sit to stand, stairs, and transfers today. Performs good forward weight shift during sit to stand with no instances of retropulsion today and improved eccentric lowering to 18 surface without using posterior legs to stabilize against plinth. Added low resistance theraband around thighs for tactile cue to prevent knee valgus during ascent, which pt tolerates well. Continued with small range deadlifts for posterior chain strengthening, still CGA to min A for balance; improved hip hinge. Pt able to perform 3 sets of stairs today with 1 hand rail assist and CGA to steady, particularly as pt fatigues and during turns at top/bottom of stairs. Requies fewer cues to minimize momentum with ascent. HEP: sit to stand with band, seated hip abduction pulses, and standing hip extension. Pt would benefit from skilled PT to promote improved balance during gait, transfers, and ADLs in addition to BLE strengthening in order to decrease fall risk and improve activity tolerance. Physical Therapy Plan Frequency and Duration Frequency of Treatment 2x/Week Duration of treatment (weeks) 8 Plan of Care Start Date 02/15/23 Plan of Care End Date 04/12/23 Therapeutic Interventions Therapeutic Interventions Balance Training,Coordination Training,Gait Training,Home Exercise Program,Joint Mobilizations,Manual Therapy, Neuromuscular Re-education, Orthotic/Prosthetic Management ,Patient/Caregiver Education, Self-Care/Home Management,Soft Tissue Mobilization,Taping, Therapeutic Activities, Therapeutic Exercises Next Visit Focus/Plan Next Note Type Treatment Note Next Visit Plan Continue safe transfers, gait w/ 4ww for endurance and Next session: Review standing hip ext; deadlifts, stairs/step ups with 1 Handrail, review HEP and progress; balance ( tandem, semi-tandem, EO/EC on stable), resisted fwd/bwd ambulation. Intro stepping strategy for dynamic balance ( stop/start/go), stability; cont ant weight shift to prevent retropulsion POC: STS to prevent retropulsion, balance activities, BLE strengthening.
--- NOTE | 2023-03-02 11:15 | PT.OTN ---
Current Diagnoses Polyneuropathy, unspecified (03/02/23) Unspecified abnormalities of gait and mobility (03/02/23) Physical Therapy Treatment Note PT-OP-A Visit Information Start: 11/29/22 10:22 Freq: Status: Active Protocol: Document 03/02/23 10:36 SP (Rec: 03/02/23 11:47 SP [id number]) Out-Patient Physical Therapy Visit Information Visit Information Visit Type Treatment Note Visit Note KX modifier after th visit 08/02 2023 Visit Start Time 10:34 Visit Stop Time 11:15 Total Visit Minutes 41 Visit Number 18 Number of PUBLIC WELFARE WORKER Visits 1 Evaluation Information Evaluation Date 11/29/22 PT-OP-B Current Condition Start: 11/29/22 10:22 Freq: Status: Active Protocol: Document 11/29/22 11:28 ED (Rec: 11/29/22 11:41 ED [id number]) Current Condition History of Current Condition Onset Date 2013 Current Complaints balance History of Current Condition Pt states that in May of 2013 he realized that he had bad balance. He states he does most of his locomotion via manual w/c. He lives on the second floor of an [facility] which has an elevator. He states that there is no need for him to walk there b/c he can just use his w/c. He states that he walks to get to his car and out of his car but not much else. Pt has been using the w/ c since about 2013. He will also use a walking stick. He owns a 4WW but does not use that often. He reports 2-3 falls in the past year. He states that sometimes his body will just collapse and he does not know why. 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 Treatment Goals Patient/Caregiver Goals Walk 1/4 of a mile PT-OP-C Subjective Start: 11/29/22 10:22 Freq: Status: Active Protocol: Document 03/02/23 10:36 SP (Rec: 03/02/23 11:47 SP [id number]) OP-PT Subjective Patient Comments Patient Comments Pt reports doing ok today. No updated to report. PT-OP-D Balance Start: 11/29/22 10:22 Freq: Status: Active Protocol: Document 11/29/22 11:28 ED (Rec: 11/29/22 11:41 ED [id number]) Balance Tests Single Limb Standing Single Limb- Right unable Single Limb- Left unable Semi-Tandem Standing Semi-Tandem Standing Balance 10 seconds Tandem Tandem Standing unable PT-OP-E Functional Tests Start: 11/29/22 10:22 Freq: Status: Active Protocol: Document 12/01/22 12:03 ED (Rec: 12/01/22 12:10 ED [id number]) Functional Tests 6 Minute Walk Test Distance 460 feet Device Used 4WW Comments required 1 seated rest break Four Step Square Test Score 42 Comments no AD; CGA - mod A for balance correction PT-OP-Q Treatments Start: 11/29/22 10:22 Freq: Status: Active Protocol: Document 03/02/23 10:36 SP (Rec: 03/02/23 11:47 SP [id number]) Gym Equipment Shuttle Recovery Unilateral Squats Resistance 1. 67# (navy and teal), 2. 50# (navy and teal) Shuttle Recovery Platform Stable Reps/Time 1. 6, 2. 10 reps; resistance more difficult Bilateral Squats Resistance 100# (2 navy) Shuttle Recovery Platform Stable Reps/Time 10, 5 x2 reps; minimal knee valgus Therapeutic Exercises Standing Exercises Hip ext Standing Exercise Name reports L easier than R Side bilateral Resistance lvl 2 teal tb around thighs Equipment Used rail #39 Reps/Minutes 2x10 Comments cued elongated posture, TKE with hip ext Sit to stand Standing Exercise Name from chair without UE use Side bilateral Equipment Used mesh chair + black foam arms across chest/front. Reps/Minutes 3x5 during tx between ex Comments cue for anterior weight shift Side steps Standing Exercise Name hip abduction strengthening- HEP review Side bilateral Resistance lvl 2 blue tb around thighs Equipment Used measure stick for increase ft clearance Reps/Minutes 3x10 ft ea direction Comments cues for increase stride, improved foot clear with stick Therapeutic Activity Therapeutic Activity deadlift Name 4# deadlift on dowel (inside / /bars) Reps/Minutes 5 reps, 4 reps before tired need sit Comments CGA with occasional min A for balance. Pt cued to maintain weight over mid-foot for stable ARMANI. Requires prn cues for anterior weight shift to prevent occasional retropulsion with return to standing, cues also for upright posture and glut fac for trunk ext stability. Gait Training Gait Activity trek pole Description dynamic HTs Device Used 1 trek pole Level of Assistance close SBA with 3 instance CGA Surface stable Distance/Duration 25 ft, 220 ft x2 laps Treatment Focus endurance, normal gait, balance Comments Pt carrying trek pole in RUE occ use contact floor for stability with cued HTs more off balance, only using it for balance head turn R, turns or as fatigues. cueing pt to use pole more consistently for balance. PT-OP-T Assessment and Plan Start: 11/29/22 10:22 Freq: Status: Active Protocol: Document 03/02/23 10:36 SP (Rec: 03/02/23 11:47 SP [id number]) Physical Therapy Assessment Goals stairs Impairment stairs [facility] Goal (LTG) Pt will be able to negotiate 5 steps using single railing SBA. PROGRESSING 02/15/23: Pt able to navigate 3 sets of 4 6 stairs using 1 handrail (R) for balance, but CGA to steady NOT MET 01/02/23 LTG Duration 6-8 weeks PROGRESSING ambulation Impairment ambulation Short Term Goal (STG) Pt will be able to ambulate > 200 feet using walking stick SBA. 02/14/23: MET 240 ft with 1 trek pole SBA with occasional CGA to steady at end STG Duration 3 weeks [facility]itentiary Goal (LTG) Pt will be able to ambulate > 500 feet using walking stick or 4WW SBA. 02/22/23: 660 ft with 4WW and SBA, cues for foot clearance 02/14/23: NOT MET LTG Duration 6-8 weeks MET SPPB Impairment SPPB Impairment IE: 06/24 Transition Nurse Goal (LTG) Pt will improve SPPB by 2 points to a score of >7/12. ( MCID is 1 point improvement) 02/14/23: PARTIALLY MET, current score 7/12 LTG Duration 6-8 weeks PARTIALLY MET 5x STS Impairment 5x STS Impairment IE: Unable to complete Short Term Goal (STG) Pt will be able to perform 5 sit<>stands from 22 inch height c/o UE assist. 02/14/23: MET, able to perform with 5x STS from 20 height without UE assist STG Duration 3 weeks Transition Nurse Goal (LTG) Pt will be able to perform 5 sit<>stands from 20 inch height c/o UE assist. 02/14/23: PARTIALLY MET, able to perform with 5x STS from 20 height without UE assist but attempts to stabilize with plinth using posterior chain BLE LTG Duration 6-8 weeks PROGRESSING Assessment Summary Assessment Pt improved wt shift fwd asc/ desc balance during sit to stands, still requires cuing wt shift ant coming to standing from flexed mobility to decrease retro lean lean trunk froward into forefoot and keep toes down with glut/ scap squeeze. Pt improved stability during increase challenge head turns cued elongated posture/ slower neck ROM and increase ARMANI. Physical Therapy Plan Frequency and Duration Frequency of Treatment 2x/Week Duration of treatment (weeks) 8 Plan of Care Start Date 02/15/23 Plan of Care End Date 04/12/23 Therapeutic Interventions Therapeutic Interventions Balance Training,Coordination Training,Gait Training,Home Exercise Program,Joint Mobilizations,Manual Therapy, Neuromuscular Re-education, Orthotic/Prosthetic Management ,Patient/Caregiver Education, Self-Care/Home Management,Soft Tissue Mobilization,Taping, Therapeutic Activities, Therapeutic Exercises Next Visit Focus/Plan Next Note Type Treatment Note Next Visit Plan Continue safe transfers, gait w/ 4ww for endurance and Next session: Review standing hip ext; deadlifts, stairs/step ups with 1 Handrail, review HEP and progress; balance ( tandem, semi-tandem, EO/EC on stable), resisted fwd/bwd ambulation. Intro stepping strategy for dynamic balance ( stop/start/go), stability; cont ant weight shift to prevent retropulsion POC: STS to prevent retropulsion, balance activities, BLE strengthening.
--- NOTE | 2023-03-14 15:49 | PT.OTN ---
Current Diagnoses Polyneuropathy, unspecified (03/14/23) Unspecified abnormalities of gait and mobility (03/14/23) Physical Therapy Treatment Note PT-OP-A Visit Information Start: 11/29/22 10:22 Freq: Status: Active Protocol: Document 03/14/23 14:34 NM (Rec: 03/14/23 15:47 NM [id number]) Out-Patient Physical Therapy Visit Information Visit Information Visit Type Treatment Note Visit Note KX modifier after th visit 09/01 2023 Pt went to bathroom at start of session Visit Start Time 14:37 Visit Stop Time 15:15 Visit Number 19 Evaluation Information Evaluation Date 11/29/22 PT-OP-B Current Condition Start: 11/29/22 10:22 Freq: Status: Active Protocol: Document 11/29/22 11:28 ED (Rec: 11/29/22 11:41 ED [id number]) Current Condition History of Current Condition Onset Date 2013 Current Complaints balance History of Current Condition Pt states that in May of 2013 he realized that he had bad balance. He states he does most of his locomotion via manual w/c. He lives on the second floor of an [facility] which has an elevator. He states that there is no need for him to walk there b/c he can just use his w/c. He states that he walks to get to his car and out of his car but not much else. Pt has been using the w/ c since about 2013. He will also use a walking stick. He owns a 4WW but does not use that often. He reports 2-3 falls in the past year. He states that sometimes his body will just collapse and he does not know why. 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 Treatment Goals Patient/Caregiver Goals Walk 1/4 of a mile PT-OP-C Subjective Start: 11/29/22 10:22 Freq: Status: Active Protocol: Document 03/14/23 14:34 NM (Rec: 03/14/23 15:47 NM [id number]) OP-PT Subjective Patient Comments Patient Comments Reports doing ok, no pain or soreness. He states that he is using my hands less to get up out of bed in the morning when transferring to the wheelchair. Reports compliance with HEP when he remembers, but reports that he has performed the exercises most days of the wee recently PT-OP-D Balance Start: 11/29/22 10:22 Freq: Status: Active Protocol: Document 11/29/22 11:28 ED (Rec: 11/29/22 11:41 ED [id number]) Balance Tests Single Limb Standing Single Limb- Right unable Single Limb- Left unable Semi-Tandem Standing Semi-Tandem Standing Balance 10 seconds Tandem Tandem Standing unable PT-OP-E Functional Tests Start: 11/29/22 10:22 Freq: Status: Active Protocol: Document 12/01/22 12:03 ED (Rec: 12/01/22 12:10 ED [id number]) Functional Tests 6 Minute Walk Test Distance 460 feet Device Used 4WW Comments required 1 seated rest break Four Step Square Test Score 42 Comments no AD; CGA - mod A for balance correction PT-OP-Q Treatments Start: 11/29/22 10:22 Freq: Status: Active Protocol: Document 03/14/23 14:34 NM (Rec: 03/14/23 15:47 NM [id number]) Gym Equipment Shuttle Recovery Bilateral Squats Resistance 100# (2 navy) Shuttle Recovery Platform Stable Reps/Time 10, 5 x2 reps; minimal knee valgus Therapeutic Exercises Standing Exercises Sit to stand Standing Exercise Name from chair without UE use Side bilateral Equipment Used mesh chair + black foam arms across chest/front. Reps/Minutes 3x5 during tx between ex Comments cue for anterior weight shift, sit front of chair Therapeutic Activity Therapeutic Activity deadlift Name 5# deadlift on dowel Reps/Minutes 1x10 before tired need sit Comments CGA with 1 instance min A for balance. Pt cued to maintain weight over mid-foot for stable ARMANI. Requires fewer cues for anterior weight shift to prevent occasional retropulsion with return to standing, cues also for upright posture and glut fac for trunk ext stability. Stairs Name 6 steps, 1 HRA Reps/Minutes 4 reps x 4 stairs Comments CGA to steady. Reciprocal gait but leads with RLE. 2 reps L hand rail, 2 reps R hand rail. 1 set with LLE leading. Decreased use of momentum, but unable to perform without hand rail use transfers Name /c 1 walking stick Reps/Minutes multiple reps throughout session Comments SBA for stand pivot transfer; performed multiple times during session. Prn cues for marching steps for foot clearance, step back fully /c centering self front chair and slow descend UE prn support. Cued to keep walking stick closer to body and placed on ground for additional stability Neuro Re-Education Treatment Balance Activities Weight shift Surface stable Equipment CGA to min A Comments Performed multiple reps throughout session, particularly prior to pt stepping over cone. Cued to shift weight onto stance LE prior to stepping, PT cueing gently at hips to facilitate shift Tandem/Semi-tandem/Narrow Surface stable Equipment CGA with prn min A to steady Reps/Duration 2x30 ea Comments 1. Tandem stance for time, using walking stick to position, then remain in position for up to 30 without LOB. 1 instance min A to steady, but CGA remainder of time. Performed bilaterally 2. Semi-tandem stance for time , using walking stick to position, no walking stick for balance once in position. CGA to steady prn. Performed bilaterally 3. Narrow stance: CGA to steady, no walking stick for balance. Eyes openx30 sec, then slow horizontal head turns with pt naming objects x30 sec step taps, step up/back down Details fwd and bwd cone step over Surface stable Equipment min A for balance Reps/Duration 1x5 ea LE Comments Pt stepping over small cone with 1 LE using 1 walking stick in R hand for additional stability, remaining stance LE in place. Cues for controlled stepping over cone as pt attempts to quickly move foot back and forth, cues to prevent hip circumduction over cone when stepping, also cued for weight shift PT-OP-T Assessment and Plan Start: 11/29/22 10:22 Freq: Status: Active Protocol: Document 03/14/23 14:34 NM (Rec: 03/14/23 15:47 NM [id number]) Physical Therapy Assessment Goals stairs Impairment stairs Halfway Goal (LTG) Pt will be able to negotiate 5 steps using single railing SBA. PROGRESSING 03/14/23: 4 sets of 4 stairs with 1 hand rail, reciprocal pattern; CGA to cue for complete step onto stair 02/15/23: Pt able to navigate 3 sets of 4 6 stairs using 1 handrail (R) for balance, but CGA to steady NOT MET 01/02/23 LTG Duration 6-8 weeks PROGRESSING ambulation Impairment ambulation Short Term Goal (STG) Pt will be able to ambulate > 200 feet using walking stick SBA. 02/14/23: MET 240 ft with 1 trek pole SBA with occasional CGA to steady at end STG Duration 3 weeks Halfway Goal (LTG) Pt will be able to ambulate > 500 feet using walking stick or 4WW SBA. 02/22/23: 660 ft with 4WW and SBA, cues for foot clearance 02/14/23: NOT MET LTG Duration 6-8 weeks MET SPPB Impairment SPPB Impairment IE: 06/24 Physician Coding Specialist Goal (LTG) Pt will improve SPPB by 2 points to a score of >7/12. ( MCID is 1 point improvement) 02/14/23: PARTIALLY MET, current score 7 LTG Duration 6-8 weeks PARTIALLY MET 5x STS Impairment 5x STS Impairment IE: Unable to complete Short Term Goal (STG) Pt will be able to perform 5 sit<>stands from 22 inch height c/o UE assist. 02/14/23: MET, able to perform with 5x STS from 20 height without UE assist STG Duration 3 weeks Halfway Goal (LTG) Pt will be able to perform 5 sit<>stands from 20 inch height c/o UE assist. 02/14/23: PARTIALLY MET, able to perform with 5x STS from 20 height without UE assist but attempts to stabilize with plinth using posterior chain BLE LTG Duration 6-8 weeks PROGRESSING Assessment Summary Assessment Pt tolerated session well and demos improvements in BLE strength during stairs and sit to stands. He continues to require cues to scoot to edge of chair prior to attempting to stand and occasional verbal cues for anterior weight shift to prevent retropulsion, as pt has tendency to lean backward. During stairs, pt performed 4 sets using 1 hand rail using reciprocal pattern and CGA. Requires cues for foot clearance when advancing limb and to place foot entirely on step prior to stepping up for increased awareness of position in space . During head turns with narrow ARMANI, pt demonstrates good stability while turning head horizontally. PT facilitating weight shifts during stepping over cones, cueing to keep hip/knee in line and prevent circumduction along with slower motions to improve control. Pt is progressing toward goals, but continues to be limited in activity tolerance and poor safety awareness. Pt would benefit from skilled PT for further balance and gait training, in addition to progressive BLE strengthening in order to decrease fall risk . Physical Therapy Plan Frequency and Duration Frequency of Treatment 2x/Week Duration of treatment (weeks) 8 Plan of Care Start Date 02/15/23 Plan of Care End Date 04/12/23 Therapeutic Interventions Therapeutic Interventions Balance Training,Coordination Training,Gait Training,Home Exercise Program,Joint Mobilizations,Manual Therapy, Neuromuscular Re-education, Orthotic/Prosthetic Management ,Patient/Caregiver Education, Self-Care/Home Management,Soft Tissue Mobilization,Taping, Therapeutic Activities, Therapeutic Exercises Next Visit Focus/Plan Next Note Type Progress Note Next Visit Plan Continue safe transfers, gait w/ 4ww for endurance and Next session: Review standing hip ext; deadlifts, stairs/step ups with 1 Handrail, review HEP and progress; balance ( tandem, semi-tandem, EO/EC on stable), resisted fwd/bwd ambulation. Intro stepping strategy for dynamic balance ( stop/start/go), stability; cont ant weight shift to prevent retropulsion POC: STS to prevent retropulsion, balance activities, BLE strengthening.
--- NOTE | 2023-03-17 13:21 | PT.OTN ---
Current Diagnoses Polyneuropathy, unspecified (03/17/23) Unspecified abnormalities of gait and mobility (03/17/23) Physical Therapy Treatment Note PT-OP-A Visit Information Start: 11/29/22 10:22 Freq: Status: Active Protocol: Document 03/17/23 12:16 NM (Rec: 03/17/23 13:21 NM [id number]) Out-Patient Physical Therapy Visit Information Visit Information Visit Type Treatment Note Visit Note KX modifier after 19th visit 10/02 2023 Visit Start Time 12:16 Visit Stop Time 13:00 Visit Number 20 Evaluation Information Evaluation Date 11/29/22 PT-OP-B Current Condition Start: 11/29/22 10:22 Freq: Status: Active Protocol: Document 11/29/22 11:28 ED (Rec: 11/29/22 11:41 ED [id number]) Current Condition History of Current Condition Onset Date 2013 Current Complaints balance History of Current Condition Pt states that in May of 2013 he realized that he had bad balance. He states he does most of his locomotion via manual w/c. He lives on the second floor of an [facility] which has an elevator. He states that there is no need for him to walk there b/c he can just use his w/c. He states that he walks to get to his car and out of his car but not much else. Pt has been using the w/ c since about 2013. He will also use a walking stick. He owns a 4WW but does not use that often. He reports 2-3 falls in the past year. He states that sometimes his body will just collapse and he does not know why. 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 Treatment Goals Patient/Caregiver Goals Walk 1/4 of a mile PT-OP-C Subjective Start: 11/29/22 10:22 Freq: Status: Active Protocol: Document 03/17/23 12:16 NM (Rec: 03/17/23 13:21 NM [id number]) OP-PT Subjective Patient Comments Patient Comments Pt reports soreness in his calves and thighs after last session. He has been doing his exercises intermittently. He is wearing his tennis shoes today. PT-OP-D Balance Start: 11/29/22 10:22 Freq: Status: Active Protocol: Document 11/29/22 11:28 ED (Rec: 11/29/22 11:41 ED [id number]) Balance Tests Single Limb Standing Single Limb- Right unable Single Limb- Left unable Semi-Tandem Standing Semi-Tandem Standing Balance 10 seconds Tandem Tandem Standing unable PT-OP-E Functional Tests Start: 11/29/22 10:22 Freq: Status: Active Protocol: Document 12/01/22 12:03 ED (Rec: 12/01/22 12:10 ED [id number]) Functional Tests 6 Minute Walk Test Distance 460 feet Device Used 4WW Comments required 1 seated rest break Four Step Square Test Score 42 Comments no AD; CGA - mod A for balance correction PT-OP-Q Treatments Start: 11/29/22 10:22 Freq: Status: Active Protocol: Document 03/17/23 12:16 NM (Rec: 03/17/23 13:21 NM [id number]) Therapeutic Exercises Sitting Exercises Toe raises Sitting Exercise Name added to HEP Side bilateral Reps/Minutes 1x30 with brief hold Comments cued full ROM; for foot clearance heel raises Sitting Exercise Name added to HEP Side bilateral Reps/Minutes 1x30 with brief hold Comments cued full ROM HSC Side bilateral Resistance grand traverse green tb lvl 3 Equipment Used around ankles Reps/Minutes 2x10 Comments good form; not added to HEP LAQ Sitting Exercise Name added to HEP Side bilateral Resistance grand traverse green tb lvl 3 Equipment Used band around ankles Reps/Minutes 2x10 with brief hold Comments cue for TKE, reports R more difficult than L Standing Exercises Sit to stand Standing Exercise Name from chair without UE use Side bilateral Equipment Used 18 height Reps/Minutes 4x5 throughout tmt session Comments 1 cue for anterior weight shift, sit front of chair Gait Training Gait Activity trek pole Device Used 1 trek pole Level of Assistance close SBA Surface stable Treatment Focus speed; endurance, 2>3 pt gait pattern Comments 1. [id number] for SPPB test. Cued to ambulate at normal speed for test, use trekking pole on ground rather than carry in hand 2. 220ft, various distances around clinic using 1 trek pole in R hand with 3 point gait pattern. Cued for 2pt but pt with difficulty coordinating; cued instead to keep trek pole on ground rather than carry for additional point of support Neuro Re-Education Treatment Balance Activities Weight shift Surface stable Equipment CGA Reps/Duration 1x8 reps Comments During balance activities, prior to stepping with leg. Cued to shift weight twd stance LE to allow for swing leg to advance prior to change in ARMANI back stepping Surface stable Equipment CGA-min A Reps/Duration 2x5 ft Comments During session, bwd ambulation toward table to sit from standing exercise when unable to turn around safely. Cued for foot clearance to prevent shuffling Tandem/Semi-tandem/Narrow Surface stable Equipment CGA with prn min A to steady Reps/Duration 2x30 ea Comments 1. Narrow ARMANI for time: 1x10, 2x30 2. Semi-tandem ARMANI for time: 1x10, 2x30 3. Tandem stance for time: 1x9 , 1x30 Self-Care/Home Management Treatment Education Patient Education Fall Risk,Home Exercise Program,Safety Other Education 5 minutes- HEP: seated heel and toe raises, LAQ with band. Educated pt on use of trek pole/walking stick during gait if he ambulates at home, placement of trekking pole on ground/coordination. Pt has tendency to not use the trekking pole and carries it instead as heh doesn't need it but it's there. However, PT educated pt on increased need for stability based on current gait pattern, sway, and BLE strength. Pt verbalizes understanding and improved use during gait training at end of session PT-OP-T Assessment and Plan Start: 11/29/22 10:22 Freq: Status: Active Protocol: Document 03/17/23 12:16 NM (Rec: 03/17/23 13:21 NM [id number]) Physical Therapy Assessment Goals stairs Impairment stairs Photocopying Machine Operator Goal (LTG) Pt will be able to negotiate 5 steps using single railing SBA. PROGRESSING 03/14/23: 4 sets of 4 stairs with 1 hand rail, reciprocal pattern; CGA to cue for complete step onto stair 02/15/23: Pt able to navigate 3 sets of 4 6 stairs using 1 handrail (R) for balance, but CGA to steady NOT MET 01/02/23 LTG Duration 6-8 weeks PROGRESSING ambulation Impairment ambulation Short Term Goal (STG) Pt will be able to ambulate > 200 feet using walking stick SBA. 02/14/23: MET 240 ft with 1 trek pole SBA with occasional CGA to steady at end STG Duration 3 weeks Custodial Goal (LTG) Pt will be able to ambulate > 500 feet using walking stick or 4WW SBA. 02/22/23: 660 ft with 4WW and SBA, cues for foot clearance 02/14/23: NOT MET LTG Duration 6-8 weeks MET SPPB Impairment SPPB Impairment IE: 06/24 Photocopying Machine Operator Goal (LTG) Pt will improve SPPB by 2 points to a score of >7/12. ( MCID is 1 point improvement) 03/17/23: PARTIALLY MET, score 7 02/14/23: PARTIALLY MET, current score 7/ LTG Duration 6-8 weeks PARTIALLY MET 5x STS Impairment 5x STS Impairment IE: Unable to complete Short Term Goal (STG) Pt will be able to perform 5 sit<>stands from 22 inch height c/o UE assist. 02/14/23: MET, able to perform with 5x STS from 20 height without UE assist STG Duration 3 weeks Photocopying Machine Operator Goal (LTG) Pt will be able to perform 5 sit<>stands from 20 inch height c/o UE assist. 03/17/23: 31 sec 5xSTS from 18 table, no UE support 02/14/23: PARTIALLY MET, able to perform with 5x STS from 20 height without UE assist but attempts to stabilize with plinth using posterior chain BLE LTG Duration 6-8 weeks MET Progress Towards Goals Progress Towards Goals Progressing Toward Goals,Slow Progress due to Activity Tolerance,Goals Met Progress Comments Met 5x STS goal, ambulation goal. Partially met balance goal. Progressing toward stair goal. Assessment Summary Assessment Pt tolerated session well. However, he continues to carry his trekking pole during gait rather than place it on the ground. PT spent time educating pt on pole as 3rd point of contact, increased stability during gait due to current impairments in BLE strength, balance, and trunk sway. PT has had this conversation with pt several times with little carryover; however, pt refuses to get or use 4ww/FWW or more stable AD despite education. Initiated seated LAQ, heel and toe raises for continued functional BLE strengthening as pt is more consistent with seated exercises vs standing exercises. Added to HEP with instruction to perform at meal times to facilitate more consistently. Demonstrate improved anterior weight shift during sit to stand with fewer cues, improved eccentric control with no cues today. Pt is progressing toward goals . He has currently met 2/4 goals and is progressing toward last two goals. Despite progression toward goals, pt has little carryover between sessions and has inconsistent compliance with HEP outside of sessions despite max education. Pt continues to demonstrate need for more stable AD during gait, but declines using different AD. He demonstrates improvement in STS time, gait speed, and balance with smaller ARMANI with difficulty maintaining tandem for longer lengths of time. He is also progressing with using 1 hand rail for stairs, less UE support to climb; still CGA for safety. Pt would benefit from skilled PT for further gait and balance training, progressive BLE strengthening, and education regarding safety during activity in order to decrease fall risk and improve QOL. Physical Therapy Plan Frequency and Duration Frequency of Treatment 2x/Week Duration of treatment (weeks) 8 Plan of Care Start Date 02/15/23 Plan of Care End Date 04/12/23 Therapeutic Interventions Therapeutic Interventions Balance Training,Coordination Training,Gait Training,Home Exercise Program,Joint Mobilizations,Manual Therapy, Neuromuscular Re-education, Orthotic/Prosthetic Management ,Patient/Caregiver Education, Self-Care/Home Management,Soft Tissue Mobilization,Taping, Therapeutic Activities, Therapeutic Exercises Next Visit Focus/Plan Next Note Type Treatment Note Next Visit Plan Continue safe transfers, gait w/ 4ww for endurance and Next session: Review standing hip ext; deadlifts, stairs/step ups with 1 Handrail, review HEP and progress; balance ( tandem, semi-tandem, EO/EC on stable), resisted fwd/bwd ambulation. Intro stepping strategy for dynamic balance ( stop/start/go), stability; cont ant weight shift to prevent retropulsion POC: STS to prevent retropulsion, balance activities, BLE strengthening.
--- NOTE | 2023-03-22 16:07 | PT.OTN ---
Current Diagnoses Polyneuropathy, unspecified (03/22/23) Unspecified abnormalities of gait and mobility (03/22/23) Physical Therapy Treatment Note PT-OP-A Visit Information Start: 11/29/22 10:22 Freq: Status: Active Protocol: Document 03/22/23 12:16 NM (Rec: 03/22/23 13:00 NM [id number]) Out-Patient Physical Therapy Visit Information Visit Information Visit Type Treatment Note Visit Note KX modifier after th visit 11/02 2023 Visit Start Time 12:16 Visit Stop Time 12:57 Visit Number 21 Evaluation Information Evaluation Date 11/29/22 PT-OP-B Current Condition Start: 11/29/22 10: Freq: Status: Active Protocol: Document 11/29/22 11:28 ED (Rec: 11/29/22 11:41 ED [id number]) Current Condition History of Current Condition Onset Date 2013 Current Complaints balance History of Current Condition Pt states that in May of 2013 he realized that he had bad balance. He states he does most of his locomotion via manual w/c. He lives on the second floor of an [facility] which has an elevator. He states that there is no need for him to walk there b/c he can just use his w/c. He states that he walks to get to his car and out of his car but not much else. Pt has been using the w/ c since about 2013. He will also use a walking stick. He owns a 4WW but does not use that often. He reports 2-3 falls in the past year. He states that sometimes his body will just collapse and he does not know why. 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 Treatment Goals Patient/Caregiver Goals Walk 1/4 of a mile PT-OP-C Subjective Start: 11/29/22 10:22 Freq: Status: Active Protocol: Document 03/22/23 12:16 NM (Rec: 03/22/23 13:00 NM [id number]) OP-PT Subjective Patient Comments Patient Comments Pt reports that his mid-back is sore today and was 5/10 painful after last session, beginning on Monday or Monday (but he is unsure which day). He states that it began to hurt when he rolled over in bed to the L. PT-OP-D Balance Start: 11/29/22 10:22 Freq: Status: Active Protocol: Document 11/29/22 11:28 ED (Rec: 11/29/22 11:41 ED [id number]) Balance Tests Single Limb Standing Single Limb- Right unable Single Limb- Left unable Semi-Tandem Standing Semi-Tandem Standing Balance 10 seconds Tandem Tandem Standing unable PT-OP-E Functional Tests Start: 11/29/22 10:22 Freq: Status: Active Protocol: Document 12/01/22 12:03 ED (Rec: 12/01/22 12:10 ED [id number]) Functional Tests 6 Minute Walk Test Distance 460 feet Device Used 4WW Comments required 1 seated rest break Four Step Square Test Score 42 Comments no AD; CGA - mod A for balance correction PT-OP-Q Treatments Start: 11/29/22 10:22 Freq: Status: Active Protocol: Document 03/22/23 12:16 NM (Rec: 03/22/23 13:00 NM [id number]) Therapeutic Exercises Sitting Exercises Toe raises Sitting Exercise Name reviewed HEP Side bilateral Equipment Used 4# ankle weight Reps/Minutes 1x30 w 3 hold Comments cued full ROM; for foot clearance heel raises Sitting Exercise Name reviewed HEP Side bilateral Equipment Used 4# ankle weight Reps/Minutes 1x30 w 3 hold Comments cued full ROM HSC Sitting Exercise Name added to HEP Side bilateral Resistance lvl 2 teal tb Equipment Used around ankles Reps/Minutes 2x10 Comments cue to prevent post trunk lean LAQ Sitting Exercise Name reviewed HEP Side bilateral Resistance lvl 2 teal tb Equipment Used band around ankles Reps/Minutes 2x10 with brief hold Comments cue for TKE, reports R more difficult than L Standing Exercises Sit to stand Standing Exercise Name from locked 4ww without UE use Side bilateral Equipment Used 24 height Reps/Minutes various times throughout session, 1x5 Comments improved anterior weight shift , minimal cueing Therapeutic Activity Therapeutic Activity Stairs Name 6 steps, 1 HRA Reps/Minutes 1. 2 reps x 4 stairs, 2. 2 reps x3 stairs Comments CGA to steady. Reciprocal gait but leads with RLE. 1. fwd stepping with 1 hand rail use (switches sides with ascent/descent). Demos improved stability and foot placement but still CGA to steady 2. lateral stepping with BUE use on hand rail 2 steps x3 reps. Cues for foot placement for safety, neutral hip rotation Gait Training Gait Activity 4WW Device Used 4WW Level of Assistance close SBA Surface stable Distance/Duration 2x130 ft (10 min), various distances around clinic Treatment Focus nml gait, endurance, AD training Comments Demos improved stability with 4ww. Increased gait speed and foot clearance using 4ww compared to trek pole; decreased trunk sway. Slight trunk flex due to back soreness PT-OP-T Assessment and Plan Start: 11/29/22 10:22 Freq: Status: Active Protocol: Document 03/22/23 12:16 NM (Rec: 03/22/23 13:00 NM [id number]) Physical Therapy Assessment Goals stairs Impairment stairs Pmo Consultant Goal (LTG) Pt will be able to negotiate 5 steps using single railing SBA. PROGRESSING 03/14/23: 4 sets of 4 stairs with 1 hand rail, reciprocal pattern; CGA to cue for complete step onto stair 02/15/23: Pt able to navigate 3 sets of 4 6 stairs using 1 handrail (R) for balance, but CGA to steady NOT MET 01/02/23 LTG Duration 6-8 weeks PROGRESSING ambulation Impairment ambulation Short Term Goal (STG) Pt will be able to ambulate > 200 feet using walking stick SBA. 02/14/23: MET 240 ft with 1 trek pole SBA with occasional CGA to steady at end STG Duration 3 weeks Senior Care Goal (LTG) Pt will be able to ambulate > 500 feet using walking stick or 4WW SBA. 02/22/23: 660 ft with 4WW and SBA, cues for foot clearance 02/14/23: NOT MET LTG Duration 6-8 weeks MET SPPB Impairment SPPB Impairment IE: 5/ Pmo Consultant Goal (LTG) Pt will improve SPPB by 2 points to a score of >7/12. ( MCID is 1 point improvement) 03/17/23: PARTIALLY MET, score 7 02/14/23: PARTIALLY MET, current score 7/12 LTG Duration 6-8 weeks PARTIALLY MET 5x STS Impairment 5x STS Impairment IE: Unable to complete Short Term Goal (STG) Pt will be able to perform 5 sit<>stands from 22 inch height c/o UE assist. 02/14/23: MET, able to perform with 5x STS from 20 height without UE assist STG Duration 3 weeks Senior Care Goal (LTG) Pt will be able to perform 5 sit<>stands from 20 inch height c/o UE assist. 03/17/23: 31 sec 5xSTS from 18 table, no UE support 02/14/23: PARTIALLY MET, able to perform with 5x STS from 20 height without UE assist but attempts to stabilize with plinth using posterior chain BLE LTG Duration 6-8 weeks MET Assessment Summary Assessment Due pt low back soreness, emphasis on gait with 4ww to limit low back extension and BLE exercises. Reviewed HEP for correct execution; regressed band to lvl 2 in order to prevent compensations with trunk during LAQ and HSC . Progressed to 4# ankle weights for ankle dorsiflexion and plantarflexion for improved foot clearance and push off. During gait training with 4ww, pt demos improved stability, increased gait speed and foot clearance, and decreased trunk sway. Close SBA today with fewer cues for safety. Demos improved trunk stability and foot placement during fwd stairs today with only 1 UE use for stability; however, still CGA to steady. Trialed lateral stepping up multiple stairs with BUE use; cueing for foot placement required for safety, CGA to steady. Pt would benefit from skilled PT for progressive BLE strengthening, gait and balance training in order to decrease fall risk and improve safety during community ambulation. Physical Therapy Plan Frequency and Duration Frequency of Treatment 2x/Week Duration of treatment (weeks) 8 Plan of Care Start Date 02/15/23 Plan of Care End Date 04/12/23 Therapeutic Interventions Therapeutic Interventions Balance Training,Coordination Training,Gait Training,Home Exercise Program,Joint Mobilizations,Manual Therapy, Neuromuscular Re-education, Orthotic/Prosthetic Management ,Patient/Caregiver Education, Self-Care/Home Management,Soft Tissue Mobilization,Taping, Therapeutic Activities, Therapeutic Exercises Next Visit Focus/Plan Next Note Type Treatment Note Next Visit Plan Continue safe transfers, gait w/ 4ww for endurance and Next session: Review standing hip ext; deadlifts, stairs/step ups with 1 Handrail, review HEP and progress; balance ( tandem, semi-tandem, EO/EC on stable), resisted fwd/bwd ambulation. Intro stepping strategy for dynamic balance ( stop/start/go), stability; cont ant weight shift to prevent retropulsion POC: STS to prevent retropulsion, balance activities, BLE strengthening.
--- NOTE | 2023-03-24 11:36 | PT.OTN ---
Current Diagnoses Polyneuropathy, unspecified (03/24/23) Unspecified abnormalities of gait and mobility (03/24/23) Physical Therapy Treatment Note PT-OP-A Visit Information Start: 11/29/22 10:22 Freq: Status: Active Protocol: Document 03/24/23 10:32 NM (Rec: 03/24/23 11:36 NM [id number]) Out-Patient Physical Therapy Visit Information Visit Information Visit Type Treatment Note Visit Note KX modifier after 19th visit 12/02 2023 Visit Start Time 10:32 Visit Stop Time 11:17 Visit Number 22 Evaluation Information Evaluation Date 11/29/22 PT-OP-B Current Condition Start: 11/29/22 10:22 Freq: Status: Active Protocol: Document 11/29/22 11:28 ED (Rec: 11/29/22 11:41 ED [id number]) Current Condition History of Current Condition Onset Date 2013 Current Complaints balance History of Current Condition Pt states that in May of 2013 he realized that he had bad balance. He states he does most of his locomotion via manual w/c. He lives on the second floor of an [facility] which has an elevator. He states that there is no need for him to walk there b/c he can just use his w/c. He states that he walks to get to his car and out of his car but not much else. Pt has been using the w/ c since about 2013. He will also use a walking stick. He owns a 4WW but does not use that often. He reports 2-3 falls in the past year. He states that sometimes his body will just collapse and he does not know why. 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 Treatment Goals Patient/Caregiver Goals Walk 1/4 of a mile PT-OP-C Subjective Start: 11/29/22 10:22 Freq: Status: Active Protocol: Document 03/24/23 10:32 NM (Rec: 03/24/23 11:36 NM [id number]) OP-PT Subjective Patient Comments Patient Comments PT reports 2/10 low back pain, worse with twisting and flexion related to last weekend. He performed his seated HEP yesterday and reports that he did not have any back pain afterward. Presents with walking stick today PT-OP-D Balance Start: 11/29/22 10:22 Freq: Status: Active Protocol: Document 11/29/22 11:28 ED (Rec: 11/29/22 11:41 ED [id number]) Balance Tests Single Limb Standing Single Limb- Right unable Single Limb- Left unable Semi-Tandem Standing Semi-Tandem Standing Balance 10 seconds Tandem Tandem Standing unable PT-OP-E Functional Tests Start: 11/29/22 10:22 Freq: Status: Active Protocol: Document 12/01/22 12:03 ED (Rec: 12/01/22 12:10 ED [id number]) Functional Tests 6 Minute Walk Test Distance 460 feet Device Used 4WW Comments required 1 seated rest break Four Step Square Test Score 42 Comments no AD; CGA - mod A for balance correction PT-OP-Q Treatments Start: 11/29/22 10:22 Freq: Status: Active Protocol: Document 03/24/23 10:32 NM (Rec: 03/24/23 11:36 NM [id number]) Therapeutic Activity Therapeutic Activity Log rolling Name bidirectionally Reps/Minutes 5 min Comments To address low back pain concerns when rolling in bed. Instructed pt in reaching with opposite hand in modified hooklying position. Able to perform without any pain, using good form transfers Reps/Minutes to various surfaces throughout session Comments Stand step pivot transfer, STS transfer to variety of chairs and mats. Close SBA with prn CGA to steady when ascending from lower chair. Prn cues for ant weight shift. Also transfers sit EOB <> supine, SBA with cues for sidelying positioning for ease on low back Gait Training Gait Activity 4WW Device Used 4ww Surface stable Distance/Duration 320 ft Treatment Focus nml gait, endurance, AD training Comments Demos improved stability with 4ww. Increased gait speed and foot clearance using 4ww compared to trek pole; decreased trunk sway. Slight trunk flex due to back soreness. No leg crossing trek pole Device Used 1 trek pole Level of Assistance CGA Surface stable Distance/Duration 264 ft Treatment Focus endurance, speed, pole placement Comments 264 ft Increased trunk sway, crossing legs with stance. Cued for pole placement, unable to 2 pt pattern. Improved pole staying on ground and in front Neuro Re-Education Treatment Balance Activities standing shldr diagonals Details in narrow stance, //bars Surface stable Equipment lvl 1 light blue tb Reps/Duration 1x10 ea side Comments Pt standing with NBOS, CGA for safety, performing diagonal ( D2 flex) pattern while maintaining balance. Cued for upright posture, weight shift over center of foot Hurdles Details //bars Surface stable Equipment 3 hurdles Reps/Duration 1 set Comments Pt stepping fwd over johnathan without UE support and CGA-min A for stability. Verbal and visual cues to step closer to johnathan prior to attempting to step over for foot clearance and safety Weight shift Details //bars Surface foam pad Equipment CGA to min A Reps/Duration 2 Comments Weight shifts A/P and M/L to neutral stance for stability on unstable surface. Cued to keep weight over center of foot, Pt prn facilitating weight shift at hip to direct pt. Tendency to shift to L Tandem/Semi-tandem/Narrow Details semitandem/staggered stance Surface stable Equipment CGA to stabilize in //bars Reps/Duration 2# tball Comments 1. ball pass with head straight, 2x20 ea 2. ball pass with ipsi head turns, 2x20 ea 3. ball pass with contra head turns, 2x20 ea Reports difficult to coordinate, this is making me think PT-OP-T Assessment and Plan Start: 11/29/22 10:22 Freq: Status: Active Protocol: Document 03/24/23 10:32 NM (Rec: 03/24/23 11:36 NM [id number]) Physical Therapy Assessment Goals stairs Impairment stairs Electrolysis Needle Operator Goal (LTG) Pt will be able to negotiate 5 steps using single railing SBA. PROGRESSING 03/14/23: 4 sets of 4 stairs with 1 hand rail, reciprocal pattern; CGA to cue for complete step onto stair 02/15/23: Pt able to navigate 3 sets of 4 6 stairs using 1 handrail (R) for balance, but CGA to steady NOT MET 01/02/23 LTG Duration 6-8 weeks PROGRESSING ambulation Impairment ambulation Short Term Goal (STG) Pt will be able to ambulate > 200 feet using walking stick SBA. 02/14/23: MET 240 ft with 1 trek pole SBA with occasional CGA to steady at end STG Duration 3 weeks Correction Goal (LTG) Pt will be able to ambulate > 500 feet using walking stick or 4WW SBA. 02/22/23: 660 ft with 4WW and SBA, cues for foot clearance 02/14/23: NOT MET LTG Duration 6-8 weeks MET SPPB Impairment SPPB Impairment IE: 5/ Electrolysis Needle Operator Goal (LTG) Pt will improve SPPB by 2 points to a score of >7/12. ( MCID is 1 point improvement) 03/17/23: PARTIALLY MET, score 7 02/14/23: PARTIALLY MET, current score 7/12 LTG Duration 6-8 weeks PARTIALLY MET 5x STS Impairment 5x STS Impairment IE: Unable to complete Short Term Goal (STG) Pt will be able to perform 5 sit<>stands from 22 inch height c/o UE assist. 02/14/23: MET, able to perform with 5x STS from 20 height without UE assist STG Duration 3 weeks Correction Goal (LTG) Pt will be able to perform 5 sit<>stands from 20 inch height c/o UE assist. 03/17/23: 31 sec 5xSTS from 18 table, no UE support 02/14/23: PARTIALLY MET, able to perform with 5x STS from 20 height without UE assist but attempts to stabilize with plinth using posterior chain BLE LTG Duration 6-8 weeks MET Assessment Summary Assessment Session emphasis on balance, gait, and transfer training as pt continues to have low back pain/soreness. Pt ambulated with both 1 trek pole and 4WW. Demos much better trunk stability, quick gait, decreased lateral sway, and decreased hip add during gait wtih 4ww; SBA. Pt stumbling and unable to ambulate in straight line without occasional use of other extremity to stabilize on wall when using trek pole, CGA to steady. Pt acknowledges difference in stability; however, reports that he would have difficulty with loading/ unloading 4ww in car vs trek pole. Pt also performed several balance in variety of narrowed ARMANI positions while coordinating head turns and arm movement. Initiated diagonal arm motions in narrow stance to further challenge pt ARMANI, promote weight shift anteriorly and to midline. Pt requires consistent cues for upright posture, stability and facilitation for weight shift to maintain midline. Pt would benefit from skilled PT for further balance and gait training, BLE strengthening in order to decrease fall risk and improve activity tolerance . Physical Therapy Plan Frequency and Duration Frequency of Treatment 2x/Week Duration of treatment (weeks) 8 Plan of Care Start Date 02/15/23 Plan of Care End Date 04/12/23 Therapeutic Interventions Therapeutic Interventions Balance Training,Coordination Training,Gait Training,Home Exercise Program,Joint Mobilizations,Manual Therapy, Neuromuscular Re-education, Orthotic/Prosthetic Management ,Patient/Caregiver Education, Self-Care/Home Management,Soft Tissue Mobilization,Taping, Therapeutic Activities, Therapeutic Exercises Next Visit Focus/Plan Next Note Type Treatment Note Next Visit Plan Review log rolling prn, assess for back pain. Continue safe transfers, gait w/ 4ww for endurance and Next session: BLE strength; standing hip ext; deadlifts, stairs/step ups with 1 Handrail, review HEP and progress; balance (tandem, semi-tandem, EO/EC on stable), resisted fwd/bwd ambulation. Intro stepping strategy for dynamic balance (stop/start/go ), stability; cont ant weight shift to prevent retropulsion POC: STS to prevent retropulsion, balance activities, BLE strengthening.
--- NOTE | 2023-03-29 13:00 | PT.OTN ---
Current Diagnoses Polyneuropathy, unspecified (03/29/23) Unspecified abnormalities of gait and mobility (03/29/23) Physical Therapy Treatment Note PT-OP-A Visit Information Start: 11/29/22 10:22 Freq: Status: Active Protocol: Document 03/29/23 12:19 SP (Rec: 03/29/23 13:06 SP [id number]) Out-Patient Physical Therapy Visit Information Visit Information Visit Type Treatment Note Visit Note KX modifier after 19th visit 12/02 2023 Visit Start Time 12:19 Visit Stop Time 13:00 Visit Number 23 Number of ORDERING MACHINE OPERATOR Visits 1 Evaluation Information Evaluation Date 11/29/22 PT-OP-B Current Condition Start: 11/29/22 10: Freq: Status: Active Protocol: Document 11/29/22 11:28 ED (Rec: 11/29/22 11:41 ED [id number]) Current Condition History of Current Condition Onset Date 2013 Current Complaints balance History of Current Condition Pt states that in May of 2013 he realized that he had bad balance. He states he does most of his locomotion via manual w/c. He lives on the second floor of an [facility] which has an elevator. He states that there is no need for him to walk there b/c he can just use his w/c. He states that he walks to get to his car and out of his car but not much else. Pt has been using the w/ c since about 2013. He will also use a walking stick. He owns a 4WW but does not use that often. He reports 2-3 falls in the past year. He states that sometimes his body will just collapse and he does not know why. 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 Treatment Goals Patient/Caregiver Goals Walk 1/4 of a mile PT-OP-C Subjective Start: 11/29/22 10:22 Freq: Status: Active Protocol: Document 03/29/23 12:19 SP (Rec: 03/29/23 13:06 SP [id number]) OP-PT Subjective Patient Comments Patient Comments Pt reports I want my balance to be better. I get myself over in w/c to appt today. I did same yesterday for lab. PT-OP-D Balance Start: 11/29/22 10:22 Freq: Status: Active Protocol: Document 11/29/22 11:28 ED (Rec: 11/29/22 11:41 ED [id number]) Balance Tests Single Limb Standing Single Limb- Right unable Single Limb- Left unable Semi-Tandem Standing Semi-Tandem Standing Balance 10 seconds Tandem Tandem Standing unable PT-OP-E Functional Tests Start: 11/29/22 10:22 Freq: Status: Active Protocol: Document 12/01/22 12:03 ED (Rec: 12/01/22 12:10 ED [id number]) Functional Tests 6 Minute Walk Test Distance 460 feet Device Used 4WW Comments required 1 seated rest break Four Step Square Test Score 42 Comments no AD; CGA - mod A for balance correction PT-OP-Q Treatments Start: 11/29/22 10:22 Freq: Status: Active Protocol: Document 03/29/23 12:19 SP (Rec: 03/29/23 13:06 SP [id number]) Therapeutic Exercises Sitting Exercises Toe raises Sitting Exercise Name reviewed HEP Side bilateral Equipment Used 5# ankle weight Reps/Minutes 1x30 w 3 hold Comments cued full ROM; for foot clearance heel raises Sitting Exercise Name reviewed HEP Side bilateral Equipment Used 5# ankle weight Reps/Minutes 1x30 w 3 hold Comments cued full ROM LAQ Sitting Exercise Name reviewed HEP Side bilateral Resistance 5# leg wt Equipment Used band around ankles Reps/Minutes 2 sec hold x15 reps Comments cue for TKE, R knee lag into ext, cues for TKE improves into full ext Therapeutic Activity Therapeutic Activity Log rolling Name bidirectionally Reps/Minutes 5 min Comments To address low back pain concerns when rolling in bed. Instructed pt in reaching with opposite hand in modified hooklying position. Able to perform without any pain, using good form transfers Reps/Minutes to various surfaces throughout session Comments Stand step pivot transfer, STS transfer to variety of chairs and mats. Close SBA with prn CGA to steady when ascending from lower chair. Prn cues for ant weight shift. Also transfers sit EOB <> supine, SBA with cues for sidelying positioning for ease on low back Gait Training Gait Activity 4WW Device Used 4ww Surface stable Distance/Duration 340 ft Treatment Focus nml gait, endurance, AD training Comments Demos improved stability with 4ww. Increased gait speed and foot clearance using 4ww compared to trek pole; Improved proximity/centering back wheels during turns. Occ cues for more upright posturing. trek pole Device Used 1 trek pole Level of Assistance CGA Surface stable Distance/Duration 170 ft Treatment Focus endurance, speed, pole placement Comments Max cues for increase ARMANI, centering midline posturing rhomboid/TA, attention to task at hand. Increased trunk sway, crossing legs with stance. Cued for pole placement, challenged 2 pt pattern, performs every 4th L LE advancement. Improved pole staying on ground and in front with increased stride stability. Neuro Re-Education Treatment Balance Activities Tandem/Semi-tandem/Narrow Details semitandem/staggered stance Surface stable Equipment CGA to stabilize in //bars Reps/Duration 2# tball Comments 1. ball pass with head straight, 2x20 ea 2. ball pass with ipsi head turns, 2x20 ea 3. ball pass with contra head turns, 2x20 ea Reports difficult to coordinate, this is making me think PT-OP-T Assessment and Plan Start: 11/29/22 10:22 Freq: Status: Active Protocol: Document 03/29/23 12:19 SP (Rec: 03/29/23 13:06 SP [id number]) Physical Therapy Assessment Goals stairs Impairment stairs Cdl Team Truck Driver Goal (LTG) Pt will be able to negotiate 5 steps using single railing SBA. PROGRESSING 03/14/23: 4 sets of 4 stairs with 1 hand rail, reciprocal pattern; CGA to cue for complete step onto stair 02/15/23: Pt able to navigate 3 sets of 4 6 stairs using 1 handrail (R) for balance, but CGA to steady NOT MET 01/02/23 LTG Duration 6-8 weeks PROGRESSING ambulation Impairment ambulation Short Term Goal (STG) Pt will be able to ambulate > 200 feet using walking stick SBA. 02/14/23: MET 240 ft with 1 trek pole SBA with occasional CGA to steady at end STG Duration 3 weeks Detention Goal (LTG) Pt will be able to ambulate > 500 feet using walking stick or 4WW SBA. 02/22/23: 660 ft with 4WW and SBA, cues for foot clearance 02/14/23: NOT MET LTG Duration 6-8 weeks MET SPPB Impairment SPPB Impairment IE: 06/24 Cdl Team Truck Driver Goal (LTG) Pt will improve SPPB by 2 points to a score of >7/12. ( MCID is 1 point improvement) 03/17/23: PARTIALLY MET, score 7 02/14/23: PARTIALLY MET, current score 7/12 LTG Duration 6-8 weeks PARTIALLY MET 5x STS Impairment 5x STS Impairment IE: Unable to complete Short Term Goal (STG) Pt will be able to perform 5 sit<>stands from 22 inch height c/o UE assist. 02/14/23: MET, able to perform with 5x STS from 20 height without UE assist STG Duration 3 weeks Detention Goal (LTG) Pt will be able to perform 5 sit<>stands from 20 inch height c/o UE assist. 03/17/23: 31 sec 5xSTS from 18 table, no UE support 02/14/23: PARTIALLY MET, able to perform with 5x STS from 20 height without UE assist but attempts to stabilize with plinth using posterior chain BLE LTG Duration 6-8 weeks MET Assessment Summary Assessment Pt denies LB soreness this tx. Continued focus on COG over increased ARMANI safety cues distance progression tiring, midline trunk corrections and use of trekpole for stability recovery during gait. Same cues for balance activities trunk more fwd into forefoot for stabilty, mod cues for slow eccentric sitting for increase opportunity LE and core strengthening. He states does but reminders for carryover performance consistancy. Physical Therapy Plan Frequency and Duration Frequency of Treatment 2x/Week Duration of treatment (weeks) 8 Plan of Care Start Date 02/15/23 Plan of Care End Date 04/12/23 Therapeutic Interventions Therapeutic Interventions Balance Training,Coordination Training,Gait Training,Home Exercise Program,Joint Mobilizations,Manual Therapy, Neuromuscular Re-education, Orthotic/Prosthetic Management ,Patient/Caregiver Education, Self-Care/Home Management,Soft Tissue Mobilization,Taping, Therapeutic Activities, Therapeutic Exercises Next Visit Focus/Plan Next Note Type Treatment Note Next Visit Plan Review log rolling prn, assess for back pain. Continue safe transfers, gait w/ 4ww for endurance and Next session: BLE strength; standing hip ext; deadlifts, stairs/step ups with 1 Handrail, review HEP and progress; balance (tandem, semi-tandem, EO/EC on stable), resisted fwd/bwd ambulation. Intro stepping strategy for dynamic balance (stop/start/go ), stability; cont ant weight shift to prevent retropulsion POC: STS to prevent retropulsion, balance activities, BLE strengthening.
--- NOTE | 2023-03-31 11:12 | PT.OTN ---
Current Diagnoses Polyneuropathy, unspecified (03/31/23) Unspecified abnormalities of gait and mobility (03/31/23) Physical Therapy Treatment Note PT-OP-A Visit Information Start: 11/29/22 10:22 Freq: Status: Active Protocol: Document 03/31/23 10:32 SP (Rec: 03/31/23 11:26 SP [id number]) Out-Patient Physical Therapy Visit Information Visit Information Visit Type Treatment Note Visit Note KX modifier after 19th visit 12/02 2023 Visit Start Time 10:32 Visit Stop Time 11:12 Visit Number 24 Number of SLD EDUCATIONAL AIDE Visits 2 Evaluation Information Evaluation Date 11/29/22 PT-OP-B Current Condition Start: 11/29/22 10:22 Freq: Status: Active Protocol: Document 11/29/22 11:28 ED (Rec: 11/29/22 11:41 ED [id number]) Current Condition History of Current Condition Onset Date 2013 Current Complaints balance History of Current Condition Pt states that in May of 2013 he realized that he had bad balance. He states he does most of his locomotion via manual w/c. He [facility] the [facility] an [facility] which has an [facility]. He states that there is no need for him to walk there b/c he can just use his w/c. He states that he walks to get to his car and out of his car but not much else. Pt has been using the w/ c since about 2013. He will also use a walking stick. He owns a 4WW but does not use that often. He reports 2-3 falls in the past year. He states that sometimes his body will just collapse and he does not know why. 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 He reports balance adn eye site not as good today. PT-OP-D Balance Start: 11/29/22 10:22 Freq: Status: Active Protocol: Document 11/29/22 11:28 ED (Rec: 11/29/22 11:41 ED [id number]) Balance Tests Single Limb Standing Single Limb- Right unable Single Limb- Left unable Semi-Tandem Standing Semi-Tandem Standing Balance 10 seconds Tandem Tandem Standing unable PT-OP-E Functional Tests Start: 11/29/22 10:22 Freq: Status: Active Protocol: Document 12/01/22 12:03 ED (Rec: 12/01/22 12:10 ED [id number]) Functional Tests 6 Minute Walk Test Distance 460 feet Device Used 4WW Comments required 1 seated rest break Four Step Square Test Score 42 Comments no AD; CGA - mod A for balance correction PT-OP-Q Treatments Start: 11/29/22 10:22 Freq: Status: Active Protocol: Document 03/31/23 10:32 SP (Rec: 03/31/23 11:26 SP [id number]) Gym Equipment Shuttle Recovery Unilateral Squats Resistance 50# (2 navy) Shuttle Recovery Platform Stable Reps/Time x10 Bilateral Squats Resistance 100#>75 # dark navy Shuttle Recovery Platform Stable Reps/Time x20 Therapeutic Exercises Sitting Exercises Toe raises Sitting Exercise Name reviewed HEP Side bilateral Equipment Used 5# ankle weight Reps/Minutes 1x30 w 3 hold Comments cued full ROM; for foot clearance heel raises Sitting Exercise Name reviewed HEP Side bilateral Equipment Used 5# ankle weight Reps/Minutes 1x30 w 3 hold Comments cued full ROM HSC Sitting Exercise Name added to HEP Side bilateral Resistance 5# e Equipment Used around ankles Reps/Minutes 2x10 Comments cue to prevent post trunk lean LAQ Sitting Exercise Name reviewed HEP Side bilateral Resistance 5# leg wt Reps/Minutes x15 Comments improved eccentric control, quick 2 reps Standing Exercises Sit to stand Standing Exercise Name from locked 4ww without UE use Side bilateral Equipment Used 20 (mesh chair + blue foam) Reps/Minutes various times throughout session, 1x5 Comments improved anterior weight shift , minimal cueing slow descend Therapeutic Activity Therapeutic Activity deadlift Name AROM walking stick Reps/Minutes 1x10 before tired need sit Comments SBA with 1 instance retro wt shift coming to stand CGA for balance. Pt cued to maintain weight over mid-foot for stable ARMANI, come to full stand between reps. transfers Reps/Minutes to various surfaces throughout session Comments Stand step pivot transfer, STS transfer to variety of chairs and mats. Close SBA with prn CGA to steady when ascending from lower chair. Prn cues for ant weight shift. Also transfers sit EOB <> supine, SBA with cues for sidelying positioning for ease on low back Gait Training Gait Activity trek pole Description carrying 1 trek pole Level of Assistance SBA Surface stable Distance/Duration 170 ft, various seated around gym Treatment Focus endurance, speed, pole placement Comments Max cues heel toe RLE, sway R x1 but self correction L, ed safety cues for use of walking stick support. PT-OP-T Assessment and Plan Start: 11/29/22 10:22 Freq: Status: Active Protocol: Document 03/31/23 10:32 SP (Rec: 03/31/23 11:26 SP [id number]) Physical Therapy Assessment Goals stairs Impairment stairs Care Home Goal (LTG) Pt will be able to negotiate 5 steps using single railing SBA. PROGRESSING 03/14/23: 4 sets of 4 stairs with 1 hand rail, reciprocal pattern; CGA to cue for complete step onto stair 02/15/23: Pt able to navigate 3 sets of 4 6 stairs using 1 handrail (R) for balance, but CGA to steady NOT MET 01/02/23 LTG Duration 6-8 weeks PROGRESSING ambulation Impairment ambulation Short Term Goal (STG) Pt will be able to ambulate > 200 feet using walking stick SBA. 02/14/23: MET 240 ft with 1 trek pole SBA with occasional CGA to steady at end STG Duration 3 weeks Entry Level Assistant Manager Goal (LTG) Pt will be able to ambulate > 500 feet using walking stick or 4WW SBA. 02/22/23: 660 ft with 4WW and SBA, cues for foot clearance 02/14/23: NOT MET LTG Duration 6-8 weeks MET SPPB Impairment SPPB Impairment IE: 5/ Care Home Goal (LTG) Pt will improve SPPB by 2 points to a score of >7/12. ( MCID is 1 point improvement) 03/17/23: PARTIALLY MET, score 7 02/14/23: PARTIALLY MET, current score 7/12 LTG Duration 6-8 weeks PARTIALLY MET 5x STS Impairment 5x STS Impairment IE: Unable to complete Short Term Goal (STG) Pt will be able to perform 5 sit<>stands from 22 inch height c/o UE assist. 02/14/23: MET, able to perform with 5x STS from 20 height without UE assist STG Duration 3 weeks Care Home Goal (LTG) Pt will be able to perform 5 sit<>stands from 20 inch height c/o UE assist. 03/17/23: 31 sec 5xSTS from 18 table, no UE support 02/14/23: PARTIALLY MET, able to perform with 5x STS from 20 height without UE assist but attempts to stabilize with plinth using posterior chain BLE LTG Duration 6-8 weeks MET Assessment Summary Assessment Pt denies back bothering him but eye site weird and balance not as good. Tx focused on transfers and gait between seats, less cueing 50% for fully step back slow descend sit contact 1 hand as needed lower 18 chair, ok 20 chair &foam. Pt improved increase stride and heel toe lessening cues 50% on RLE, only 1 R wt shift contact walking stick for self recovery. Pt reported and demonstrated decreased endurance and balance doing as well, requried increased rest break between activities. Improved eccentric control during standing& seated ther ex. Physical Therapy Plan Frequency and Duration Frequency of Treatment 2x/Week Duration of treatment (weeks) 8 Plan of Care Start Date 02/15/23 Plan of Care End Date 04/12/23 Therapeutic Interventions Therapeutic Interventions Balance Training,Coordination Training,Gait Training,Home Exercise Program,Joint Mobilizations,Manual Therapy, Neuromuscular Re-education, Orthotic/Prosthetic Management ,Patient/Caregiver Education, Self-Care/Home Management,Soft Tissue Mobilization,Taping, Therapeutic Activities, Therapeutic Exercises Next Visit Focus/Plan Next Note Type Treatment Note Next Visit Plan Continue safe transfers, gait w/ 4ww for endurance and Next session: BLE strength; standing hip ext; deadlifts, stairs/step ups with 1 Handrail, review HEP and progress; balance (tandem, semi-tandem, EO/EC on stable), resisted fwd/bwd ambulation. Intro stepping strategy for dynamic balance (stop/start/go ), stability; cont ant weight shift to prevent retropulsion POC: STS to prevent retropulsion, balance activities, BLE strengthening.
--- NOTE | 2023-04-04 11:55 | PT.OTN ---
Current Diagnoses Polyneuropathy, unspecified (04/04/23) Unspecified abnormalities of gait and mobility (04/04/23) Physical Therapy Treatment Note PT-OP-A Visit Information Start: 11/29/22 10:22 Freq: Status: Active Protocol: Document 04/04/23 10:35 NM (Rec: 04/04/23 11:54 NM [id number]) Out-Patient Physical Therapy Visit Information Visit Information Visit Type Treatment Note Visit Note KX modifier after 19th visit 02/01 2024 Visit Start Time 10:33 Visit Stop Time 11:18 Visit Number 25 Evaluation Information Evaluation Date 11/29/22 PT-OP-B Current Condition Start: 11/29/22 10:22 Freq: Status: Active Protocol: Document 11/29/22 11:28 ED (Rec: 11/29/22 11:41 ED [id number]) Current Condition History of Current Condition Onset Date 2013 Current Complaints balance History of Current Condition Pt states that in May of 2013 he realized that he had bad balance. He states he does most of his locomotion via manual w/c. He lives on the second floor of an [facility] which has an elevator. He states that there is no need for him to walk there b/c he can just use his w/c. He states that he walks to get to his car and out of his car but not much else. Pt has been using the w/ c since about 2013. He will also use a walking stick. He owns a 4WW but does not use that often. He reports 2-3 falls in the past year. He states that sometimes his body will just collapse and he does not know why. 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 Treatment Goals Patient/Caregiver Goals Walk 1/4 of a mile PT-OP-C Subjective Start: 11/29/22 10:22 Freq: Status: Active Protocol: Document 04/04/23 10:35 NM (Rec: 04/04/23 11:54 NM [id number]) OP-PT Subjective Patient Comments Patient Comments Pt arrived with w/c. He reports that he slept on his R side, which always makes him feel better neurologically. He has pain in B shoulders. Reports compliance with HEP but not as much as he should - been doing HSC, heel/toe raises PT-OP-D Balance Start: 11/29/22 10:22 Freq: Status: Active Protocol: Document 11/29/22 11:28 ED (Rec: 11/29/22 11:41 ED [id number]) Balance Tests Single Limb Standing Single Limb- Right unable Single Limb- Left unable Semi-Tandem Standing Semi-Tandem Standing Balance 10 seconds Tandem Tandem Standing unable PT-OP-E Functional Tests Start: 11/29/22 10:22 Freq: Status: Active Protocol: Document 12/01/22 12:03 ED (Rec: 12/01/22 12:10 ED [id number]) Functional Tests 6 Minute Walk Test Distance 460 feet Device Used 4WW Comments required 1 seated rest break Four Step Square Test Score 42 Comments no AD; CGA - mod A for balance correction PT-OP-Q Treatments Start: 11/29/22 10:22 Freq: Status: Active Protocol: Document 04/04/23 10:35 NM (Rec: 04/04/23 11:54 NM [id number]) Therapeutic Exercises Sitting Exercises LAQ Side bilateral Resistance 5# leg wt Reps/Minutes 2x10 with brief hold at TKE Comments improved eccentric lowering with control Standing Exercises Sit to stand Standing Exercise Name from locked 4ww without UE use Side bilateral Equipment Used 20 (mesh chair), w/c Reps/Minutes 2x10 throughout session, 1x10 from w/c Comments improved anterior weight shift , prn cue to scoot fwd in chair Step ups Standing Exercise Name stairs 6; to meet goal Side bilateral Equipment Used 1 hand rail used ascent, descent; SBA Reps/Minutes 2 sets x 4 stairs Comments demos opp hip drop, improved control descent; strong step up Marching Standing Exercise Name non alternating Side bilateral Resistance lvl 1 tb Equipment Used prn hand use, no UE support at prn Reps/Minutes 2x10 ea Comments cued for center weight over midfoot; challenging, CGA to steady Gait Training Gait Activity 4WW Description for distance Device Used 4ww Level of Assistance SBA Surface stable Distance/Duration 360 ft Treatment Focus nml gait, endurance, AD training Comments Demos improved stability with 4ww. Increased gait speed and foot clearance. Cued occasionally for larger steps LLe, foot clearance, upright posture. Improved proximity/ centering back wheels during turns. Not bumping into objects. Requires 2 standing rest breaks due to fatigue. Demos good balance reaction with hip strategy during sudden stop to prevent collision with other person Neuro Re-Education Treatment Balance Activities Hurdles Details // bars Surface stable Equipment 3 hurdles Reps/Duration requires increased time for good control, safety Comments 1. fwd stepping, 2 laps x 10 ft ea Pt stepping with reciprocal pattern over hurdles. 1 hand support > 0 hand support with prn placement. CGA-min A for balance. PT cued pt to step closer to johnathan prior to attempting to step over, also cued to prevent circumduction around johnathan, cued foot clearance/hip flex 2. lateral stepping over hurdles, 2 laps x10 ft ea Pt stepping laterally over hurldes. Cued to step closer to johnathan to aviod several steps over johnathan, CGA to steady. Cued for neutral hip/ toe placement, prevent leading with hip flexors. Transitioned from 2 hand >1 hand>0 hands by second laps back stepping Details Fwd stepping > bwd stepping Surface stable Equipment // bars, 1 hand > 0 hand ues ( hovering over //bars) Reps/Duration 3x10 ft; requires increased time for control and safety Comments Light blue band around ankles. CGA to steady, particularly with retro walking. Cued for larger steps fwd and bwd, neris LLE. Also cued for foot clearance to prevent shuffling , widen ARMANI as pt is using NBOS, prevent ADD BLE Tandem/Semi-tandem/Narrow Surface stable Equipment // bars Comments For time on partial SSPB test 1. Narrow ARMANI, 10 sec close SBA; minimal sway, good ankle strategy 2. Semi-tandem, 10 sec ea LE close SBA, minimal difficulty with transitioning but no UE support, slight increased sway of trunk and at ankles 3. tandem, 10 sec maintain ea LE close SBA >CGA to steady. Difficulty with achieving and maintaining tandem, uses prn hand support to maintain upright, but able to perform 5 sec without any support side stepping Surface stable Equipment // bars, 1 hand use > B hands hovering over surface Reps/Duration 2x10 ft; requires increased time for control and safety Comments light blue band around ankles. Cued to pickle cutter feet to prevent shuffling, neutral hip /toe rotation Self-Care/Home Management Treatment Education Patient Education Home Exercise Program Other Education Verbally reviewed past HEP during pt rest break PT-OP-T Assessment and Plan Start: 11/29/22 10:22 Freq: Status: Active Protocol: Document 04/04/23 10:35 NM (Rec: 04/04/23 11:54 NM [id number]) Physical Therapy Assessment Goals stairs Impairment stairs Custodial Goal (LTG) Pt will be able to negotiate 5 steps using single railing SBA. 04/04/23: 2 sets of 4 stairs with 1 hand rail, SBA PROGRESSING 03/14/23: 4 sets of 4 stairs with 1 hand rail, reciprocal pattern; CGA to cue for complete step onto stair 02/15/23: Pt able to navigate 3 sets of 4 6 stairs using 1 handrail (R) for balance, but CGA to steady NOT MET 01/02/23 LTG Duration 6-8 weeks MET ambulation Impairment ambulation Short Term Goal (STG) Pt will be able to ambulate > 200 feet using walking stick SBA. 02/14/23: MET 240 ft with 1 trek pole SBA with occasional CGA to steady at end STG Duration 3 weeks Ditching Machine Operating Engineer Goal (LTG) Pt will be able to ambulate > 500 feet using walking stick or 4WW SBA. 02/22/23: 660 ft with 4WW and SBA, cues for foot clearance 02/14/23: NOT MET LTG Duration 6-8 weeks MET SPPB Impairment SPPB Impairment IE: 5 Ditching Machine Operating Engineer Goal (LTG) Pt will improve SPPB by 2 points to a score of >7/12. ( MCID is 1 point improvement) 03/17/23: PARTIALLY MET, score 7 02/14/23: PARTIALLY MET, current score 7/12 LTG Duration 6-8 weeks PARTIALLY MET 5x STS Impairment 5x STS Impairment IE: Unable to complete Short Term Goal (STG) Pt will be able to perform 5 sit<>stands from 22 inch height c/o UE assist. 02/14/23: MET, able to perform with 5x STS from 20 height without UE assist STG Duration 3 weeks Ditching Machine Operating Engineer Goal (LTG) Pt will be able to perform 5 sit<>stands from 20 inch height c/o UE assist. 03/17/23: 31 sec 5xSTS from 18 table, no UE support 02/14/23: PARTIALLY MET, able to perform with 5x STS from 20 height without UE assist but attempts to stabilize with plinth using posterior chain BLE LTG Duration 6-8 weeks MET Progress Towards Goals Progress Towards Goals Slow Progress due to Medical Issues,Slow Progress due to Noncompliance,Goals Met Progress Comments Met stair goal today Assessment Summary Assessment Pt tolerated session well but fatigued upon beginning session. Pt with good effort today but requires moderate encouragement to perform activities without compensation or without cueing for safety because pt reports it's easier to do this way. PT had to consistently cue pt to lock w/c brakes prior to standing today compared to previous sessions. Session focus on challenging balance with static and dynamic activities, in addition to BLE strengthening. Pt demos ability to perform resisted stepping activities with less hand support, less support from PT. PT cueing pt for larger steps, neutral hips, and foot clearance to prevent shuffling. Still CGA to steady for most activities without hand support. During gait, pt much improved with foot clearance, minimal shuffling, improved stability using 4ww. Pt met stair goal today, SBA with 1 hand rail; demos good stability upon ascent/descent but with opposite hip drop. Reviewed past HEP, PT asking pt to perform LAQ over HSC as pt attempts to stabilize with hamstrings when moving to stand. PT and pt discussed POC as will be ending soon; pt has met goals, so PT and pt discussed discharge at end of POC with HEP for maintenance as pt has made measurable progress. Pt and PT in agreement. Pt would benefit from PT for review of safe transfers and gait with stable AD, progressive balance and strength training in order to decrease fall risk and improve activity tolerance. Physical Therapy Plan Frequency and Duration Frequency of Treatment 2x/Week Duration of treatment (weeks) 8 Plan of Care Start Date 02/15/23 Plan of Care End Date 04/12/23 Therapeutic Interventions Therapeutic Interventions Balance Training,Coordination Training,Gait Training,Home Exercise Program,Joint Mobilizations,Manual Therapy, Neuromuscular Re-education, Orthotic/Prosthetic Management ,Patient/Caregiver Education, Self-Care/Home Management,Soft Tissue Mobilization,Taping, Therapeutic Activities, Therapeutic Exercises Next Visit Focus/Plan Next Note Type Treatment Note Next Visit Plan Continue safe transfers, gait w/ 4ww for endurance and Next session: BLE strength; standing hip ext; deadlifts, stairs/step ups with 1 Handrail, review HEP and progress; balance (tandem, semi-tandem, EO/EC on stable), resisted fwd/bwd ambulation. Intro stepping strategy for dynamic balance (stop/start/go ), stability; cont ant weight shift to prevent retropulsion POC: STS to prevent retropulsion, balance activities, BLE strengthening. Plan to d/c on 04/11
--- NOTE | 2023-04-07 11:14 | PT.OTN ---
Current Diagnoses Polyneuropathy, unspecified (04/07/23) Unspecified abnormalities of gait and mobility (04/07/23) Physical Therapy Treatment Note PT-OP-A Visit Information Start: 11/29/22 10:22 Freq: Status: Active Protocol: Document 04/07/23 10:34 SP (Rec: 04/07/23 11:31 SP [id number]) Out-Patient Physical Therapy Visit Information Visit Information Visit Type Treatment Note Visit Note KX modifier after 19th visit 02/01 2024 Visit Start Time 10:34 Visit Stop Time 11:14 Visit Number 26 Evaluation Information Evaluation Date 11/29/22 PT-OP-B Current Condition Start: 11/29/22 10: Freq: Status: Active Protocol: Document 11/29/22 11:28 ED (Rec: 11/29/22 11:41 ED [id number]) Current Condition History of Current Condition Onset Date 2013 Current Complaints balance History of Current Condition Pt states that in May of 2013 he realized that he had bad balance. He states he does most of his locomotion via manual w/c. He lives on the second floor of an [facility] which has an elevator. He states that there is no need for him to walk there b/c he can just use his w/c. He states that he walks to get to his car and out of his car but not much else. Pt has been using the w/ c since about 2013. He will also use a walking stick. He owns a 4WW but does not use that often. He reports 2-3 falls in the past year. He states that sometimes his body will just collapse and he does not know why. 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 Treatment Goals Patient/Caregiver Goals Walk 1/4 of a mile PT-OP-C Subjective Start: 11/29/22 10:22 Freq: Status: Active Protocol: Document 04/07/23 10:34 SP (Rec: 04/07/23 11:31 SP [id number]) OP-PT Subjective Patient Comments Patient Comments Pt reports fatigued today, fell asleep at 5 am and woke up just before came. He reports feels more confident about his exercises will continue on his own when done in PT. PT-OP-D Balance Start: 11/29/22 10:22 Freq: Status: Active Protocol: Document 11/29/22 11:28 ED (Rec: 11/29/22 11:41 ED [id number]) Balance Tests Single Limb Standing Single Limb- Right unable Single Limb- Left unable Semi-Tandem Standing Semi-Tandem Standing Balance 10 seconds Tandem Tandem Standing unable PT-OP-E Functional Tests Start: 11/29/22 10:22 Freq: Status: Active Protocol: Document 12/01/22 12:03 ED (Rec: 12/01/22 12:10 ED [id number]) Functional Tests 6 Minute Walk Test Distance 460 feet Device Used 4WW Comments required 1 seated rest break Four Step Square Test Score 42 Comments no AD; CGA - mod A for balance correction PT-OP-Q Treatments Start: 11/29/22 10:22 Freq: Status: Active Protocol: Document 04/07/23 10:34 SP (Rec: 04/07/23 11:31 SP [id number]) Therapeutic Exercises Sitting Exercises LAQ Sitting Exercise Name HEP reviewed Side bilateral Resistance 5# leg wt 2x10, TB #2 x10 ( anchored under ft & opp ankle) Reps/Minutes 2x15 with brief hold at TKE Comments improved eccentric lowering with control Standing Exercises Sit to stand Standing Exercise Name from locked 4ww without UE use Side bilateral Equipment Used 20 (mesh chair), w/c Reps/Minutes 2x10 throughout session, 1x10 from w/c Comments improved anterior weight shift , prn cue to scoot fwd in chair Step ups Standing Exercise Name 1. step 6 2. stairs Side bilateral Equipment Used 1 hand rail used ascent, 2>1 HR descent; SBA Reps/Minutes 1. 10 reps lead each LE 2. 4 stairs x3 sets Comments good strong step up, slow receiprocal descent Marching Standing Exercise Name alternating Side bilateral Resistance lvl 1 tb Equipment Used prn hand use, no UE support at prn Reps/Minutes 2x10 ea Comments cued for center weight over midfoot; challenging, CGA to steady Gait Training Gait Activity 4WW Description for distance Device Used 4ww Level of Assistance SBA Surface stable Distance/Duration 170 ft, 100 ft around gym Treatment Focus nml gait, endurance, AD training Comments Demos improved stability with 4ww. Increased gait speed and foot clearance. Cued occasionally for larger steps R>LLE, foot clearance, upright posture. Improved proximity/ centering back wheels during turns. Demos good balance reaction with hip strategy. Improved obstacle mgt. Neuro Re-Education Treatment Balance Activities back stepping Details Fwd stepping > bwd stepping Surface stable Equipment 0 hands hovering over //bars Reps/Duration 3x10 ft for control and safety Comments Light blue band around ankles. CGA to steady, particularly with retro walking. Cued for R >LLE foot clearance to prevent shuffling, widen ARMANI as pt is using NBOS, prevent ADD BLE Tandem/Semi-tandem/Narrow Surface stable Equipment hands hover // bars Comments Semi-tandem, 10 sec ea LE close SBA, minimal difficulty with transitioning but no UE support, slight increased sway of trunk and at ankles close SBA >CGA to steady. Difficulty with achieving and maintaining tandem, uses prn hand support to maintain upright, but able to perform 5 sec without any support PT-OP-T Assessment and Plan Start: 11/29/22 10:22 Freq: Status: Active Protocol: Document 04/07/23 10:34 SP (Rec: 04/07/23 11:31 SP [id number]) Physical Therapy Assessment Goals stairs Impairment stairs Foundry Melt Supervisor Goal (LTG) Pt will be able to negotiate 5 steps using single railing SBA. 04/04/23: 2 sets of 4 stairs with 1 hand rail, SBA PROGRESSING 03/14/23: 4 sets of 4 stairs with 1 hand rail, reciprocal pattern; CGA to cue for complete step onto stair 02/15/23: Pt able to navigate 3 sets of 4 6 stairs using 1 handrail (R) for balance, but CGA to steady NOT MET 01/02/23 LTG Duration 6-8 weeks MET ambulation Impairment ambulation Short Term Goal (STG) Pt will be able to ambulate > 200 feet using walking stick SBA. 02/14/23: MET 240 ft with 1 trek pole SBA with occasional CGA to steady at end STG Duration 3 weeks Nursing Home Goal (LTG) Pt will be able to ambulate > 500 feet using walking stick or 4WW SBA. 02/22/23: 660 ft with 4WW and SBA, cues for foot clearance 02/14/23: NOT MET LTG Duration 6-8 weeks MET SPPB Impairment SPPB Impairment IE: 06/24 Nursing Home Goal (LTG) Pt will improve SPPB by 2 points to a score of >7/12. ( MCID is 1 point improvement) 03/17/23: PARTIALLY MET, score 7 02/14/23: PARTIALLY MET, current score 7/12 LTG Duration 6-8 weeks PARTIALLY MET 5x STS Impairment 5x STS Impairment IE: Unable to complete Short Term Goal (STG) Pt will be able to perform 5 sit<>stands from 22 inch height c/o UE assist. 02/14/23: MET, able to perform with 5x STS from 20 height without UE assist STG Duration 3 weeks Nursing Home Goal (LTG) Pt will be able to perform 5 sit<>stands from 20 inch height c/o UE assist. 03/17/23: 31 sec 5xSTS from 18 table, no UE support 02/14/23: PARTIALLY MET, able to perform with 5x STS from 20 height without UE assist but attempts to stabilize with plinth using posterior chain BLE LTG Duration 6-8 weeks MET Assessment Summary Assessment Pt tolerated tx well, fatigues a between standing activities requests seated rest for recovery. Good effort requires cues for safety postural alignment proper form or use of UE needed safety stability if needed. Continued cues for 4WW brake mgt safety pre mobiltiy transitioning safety use home carryover. Pt was able to complete step up activitiy with less 1 UE support, slower pacing with reps tiring, cues for safety back step increase length clearance. Pt is aware 1 more appt to finalize HEP and carryover progress standing activities at home (YNES). Physical Therapy Plan Frequency and Duration Frequency of Treatment 2x/Week Duration of treatment (weeks) 8 Plan of Care Start Date 02/15/23 Plan of Care End Date 04/12/23 Therapeutic Interventions Therapeutic Interventions Balance Training,Coordination Training,Gait Training,Home Exercise Program,Joint Mobilizations,Manual Therapy, Neuromuscular Re-education, Orthotic/Prosthetic Management ,Patient/Caregiver Education, Self-Care/Home Management,Soft Tissue Mobilization,Taping, Therapeutic Activities, Therapeutic Exercises Next Visit Focus/Plan Next Note Type Discharge Summary Next Visit Plan Continue safe transfers, gait w/ 4ww for endurance and Next session: BLE strength; standing hip ext; deadlifts, stairs/step ups with 1 Handrail, review HEP and progress; balance (tandem, semi-tandem, EO/EC on stable), resisted fwd/bwd ambulation. Intro stepping strategy for dynamic balance (stop/start/go ), stability; cont ant weight shift to prevent retropulsion POC: STS to prevent retropulsion, balance activities, BLE strengthening. Plan to d/c on 04/11
--- NOTE | 2023-04-11 15:37 | PT.OTN ---
Current Diagnoses Polyneuropathy, unspecified (04/11/23) Unspecified abnormalities of gait and mobility (04/11/23) Physical Therapy Treatment Note PT-OP-A Visit Information Start: 11/29/22 10:22 Freq: Status: Active Protocol: Document 04/11/23 12:19 NM (Rec: 04/11/23 13:01 NM [id number]) Out-Patient Physical Therapy Visit Information Visit Information Visit Type Discharge Summary Visit Note Pt late KX modifier after 19th visit 2023 Visit Start Time 12: Visit Stop Time 13:00 Visit Number 27 Evaluation Information Evaluation Date 11/29/22 PT-OP-B Current Condition Start: 11/29/22 10: Freq: Status: Active Protocol: Document 11/29/22 11:28 ED (Rec: 11/29/22 11:41 ED [id number]) Current Condition History of Current Condition Onset Date 2013 Current Complaints balance History of Current Condition Pt states that in May of 2013 he realized that he had bad balance. He states he does most of his locomotion via manual w/c. He lives on the second floor of an [facility] which has an elevator. He states that there is no need for him to walk there b/c he can just use his w/c. He states that he walks to get to his car and out of his car but not much else. Pt has been using the w/ c since about 2013. He will also use a walking stick. He owns a 4WW but does not use that often. He reports 2-3 falls in the past year. He states that sometimes his body will just collapse and he does not know why. 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 Treatment Goals Patient/Caregiver Goals Walk 1/4 of a mile PT-OP-C Subjective Start: 11/29/22 10:22 Freq: Status: Active Protocol: Document 04/11/23 12:19 NM (Rec: 04/11/23 13:01 NM [id number]) OP-PT Subjective Patient Comments Patient Comments Pt reports he slept well. No pain or soreness after last session. Pt reports ready to discharge today PT-OP-D Balance Start: 11/29/22 10:22 Freq: Status: Active Protocol: Document 11/29/22 11:28 ED (Rec: 11/29/22 11:41 ED [id number]) Balance Tests Single Limb Standing Single Limb- Right unable Single Limb- Left unable Semi-Tandem Standing Semi-Tandem Standing Balance 10 seconds Tandem Tandem Standing unable PT-OP-E Functional Tests Start: 11/29/22 10:22 Freq: Status: Active Protocol: Document 12/01/22 12:03 ED (Rec: 12/01/22 12:10 ED [id number]) Functional Tests 6 Minute Walk Test Distance 460 feet Device Used 4WW Comments required 1 seated rest break Four Step Square Test Score 42 Comments no AD; CGA - mod A for balance correction PT-OP-Q Treatments Start: 11/29/22 10:22 Freq: Status: Active Protocol: Document 04/11/23 12:19 NM (Rec: 04/11/23 13:01 NM [id number]) Therapeutic Exercises Sitting Exercises glute medius activation Sitting Exercise Name hip abduction isometric hold Side bilateral Resistance lvl 3 tb around thighs Reps/Minutes 1x30 Comments cued hold isometric maximally march Sitting Exercise Name added to HEP vs standing Side bilateral Resistance lvl 3 tb around thighs Equipment Used seated on plinth Reps/Minutes 2x15 Comments cues to prevent trunk lean when alt; improved with cue Toe raises Sitting Exercise Name reviewed for HEP heel raises Sitting Exercise Name reviewed for HEP LAQ Sitting Exercise Name HEP reviewed Side bilateral Reps/Minutes 1x10 w 5 hold, 1x10 with lvl 3 tb Comments improved eccentric lowering with control Hip abduction pulses Side bilateral Resistance lvl 3 tb around thighs Reps/Minutes 1x30 Comments cued no trunk lean Standing Exercises Sit to stand Standing Exercise Name 5x STS; reviewed for HEP Side bilateral Equipment Used 20 chair Reps/Minutes 2 sets 5 reps, quickly Comments improved ant weight; 21 sec, 28 sec Marching Standing Exercise Name seated Side steps Standing Exercise Name hip abduction strengthening- HEP review Side bilateral Resistance lvl 3 tb around thighs Reps/Minutes 3x10 ft ea direction Comments cues for increase stride, improved foot clear with stick band walk Standing Exercise Name fwd and retro walking- not added to HEP Side bilateral Resistance lvl 3 tb around thighs Equipment Used 1 trek pole, 1 hand on ballet bar Reps/Minutes 2x10 ft ea Comments cues for larger step with retro walk Neuro Re-Education Treatment Balance Activities Tandem/Semi-tandem/Narrow Comments for time on SPPB 10 sec ea Self-Care/Home Management Treatment Education Patient Education Fall Risk,Home Exercise Program,Safety Other Education 8 minutes: Reviewed past HEP, created and reviewed current HEP with additions to previous HEP. PT educated pt on safety during exercises, placing band on BLE while in seated and using sturdy UE support for safety. Educated further on use of AD, particularly pt' s 4ww for improved safety during community gait; educated pt to place trek pole on ground when using trek pole as additional point of support. PT also educated pt to follow up with PCP or for new referral for PT if symptoms return, change, or worsen. Pt verbalizes agreement. Added to HEP: hip abd isometric, seated clams, seated march with band, and side steps with UE support. PT-OP-T Assessment and Plan Start: 11/29/22 10:22 Freq: Status: Active Protocol: Document 04/11/23 12:19 NM (Rec: 04/11/23 13:01 NM [id number]) Physical Therapy Assessment Goals stairs Impairment stairs Hoof Trimmer Goal (LTG) Pt will be able to negotiate 5 steps using single railing SBA. 04/04/23: 2 sets of 4 stairs with 1 hand rail, SBA PROGRESSING 03/14/23: 4 sets of 4 stairs with 1 hand rail, reciprocal pattern; CGA to cue for complete step onto stair 02/15/23: Pt able to navigate 3 sets of 4 6 stairs using 1 handrail (R) for balance, but CGA to steady NOT MET 01/02/23 LTG Duration 6-8 weeks MET ambulation Impairment ambulation Short Term Goal (STG) Pt will be able to ambulate > 200 feet using walking stick SBA. 02/14/23: MET 240 ft with 1 trek pole SBA with occasional CGA to steady at end STG Duration 3 weeks Intermediate Goal (LTG) Pt will be able to ambulate > 500 feet using walking stick or 4WW SBA. , 03/29/23: cumulatively 500 ft with 4ww and trek pole 02/22/23: 660 ft with 4WW and SBA, cues for foot clearance 02/14/23: NOT MET LTG Duration 6-8 weeks MET SPPB Impairment SPPB Impairment IE: 06/24 Hoof Trimmer Goal (LTG) Pt will improve SPPB by 2 points to a score of >7/12. ( MCID is 1 point improvement) 04/11/23, 03/17/23: MET, score 7 02/14/23: PARTIALLY MET, current score 7/12 LTG Duration 6-8 weeks MET 5x STS Impairment 5x STS Impairment IE: Unable to complete Short Term Goal (STG) Pt will be able to perform 5 sit<>stands from 22 inch height c/o UE assist. 02/14/23: MET, able to perform with 5x STS from 20 height without UE assist STG Duration 3 weeks Intermediate Goal (LTG) Pt will be able to perform 5 sit<>stands from 20 inch height c/o UE assist. 04/11/23: 21 sec from 20 table , no UE support 03/17/23: 31 sec 5xSTS from 18 table, no UE support 02/14/23: PARTIALLY MET, able to perform with 5x STS from 20 height without UE assist but attempts to stabilize with plinth using posterior chain BLE LTG Duration 6-8 weeks MET Progress Towards Goals Progress Towards Goals Goals Met Progress Comments Pt has met all goals Assessment Summary Assessment Pt tolerated treatment well. Session spent reviewing past HEP and finalizing current HEP . PT educated pt on safety during gait using stable AD, such as 4ww or trek pole when pole is placed on ground as additional point of support. Pt verbalizes understanding. Continued with BLE strengthening for HEP. Added seated versions of marching and hip abduction with both isometric hold and pulses for improved hip strength and stability. Seated exercises added due to pt reports of limited room in home for standing activity, for increased compliance with HEP and safety. Educated pt on using band for resistance with LAQ, hip abduction, and sit to stand; recommended pt perform with isometric hold if not using band around thighs. Pt demos improved narrow stance during tandem, semi- tandem, and narrow ARMANI today. Continued with resisted gait using UE support for additional BLE strengthening and for balance; PT cueing pt for correct execution, larger step, and safety. Pt has been seen for BLE strengthening, gait training, and to address balance impairments since November 2022 . Pt has met all goals since beginning PT. He is able to perform all functional transfers, ADLs, gait, and exercises for HEP safely and without limitation. He is now able to perform stairs with close SBA using 1 hand rail. Pt's SPPB score improved from 5 to 7 and has remained steady for last several weeks, indicating maintenance of improved balance. Pt is aware of balance impairments remaining due to neuropathy and is able to demonstrate improved ankle/hip balance strategies using an AD for safety during gait. PT strongly encouraged pt to continue to use more stable AD for community ambulation compared to trek pole due to increased level of stability and pt limited activity tolerance. Pt and PT in agreement about discharge today. Pt issued additional HEP, educated on maintenance program; he verbalizes understanding. Educated to follow up with PCP if changes in balance, gait occur. Pt is safe to discharge to independent maintenance program. Physical Therapy Plan Frequency and Duration Frequency of Treatment 2x/Week Duration of treatment (weeks) 8 Plan of Care Start Date 02/15/23 Plan of Care End Date 04/12/23 Therapeutic Interventions Therapeutic Interventions Balance Training,Coordination Training,Gait Training,Home Exercise Program,Joint Mobilizations,Manual Therapy, Neuromuscular Re-education, Orthotic/Prosthetic Management ,Patient/Caregiver Education, Self-Care/Home Management,Soft Tissue Mobilization,Taping, Therapeutic Activities, Therapeutic Exercises Discharge Physical Therapy Discharge Reasons Goals Met Discharge Comments Pt has met all goals, safe to discharge to independent exercise with maintenance program Next Visit Focus/Plan Next Visit Plan Discharge from PT services
== END 2023-04-12 10:36 | disposition home or self-care (01) ==
LOC: PHYS 12:15
PROVIDERS: Family Provider Family Medicine; PCP Family Medicine; Referring Provider Psychiatry & Neurology Neuromuscular Medicine; Visit Provider Psychiatry & Neurology Neuromuscular Medicine
DX: G62.9 Polyneuropathy, unspecified (principal); R26.9 Unspecified abnormalities of gait and mobility
CPT/HCPCS: 97110; 97112; 97116; 97162; 97530; 97535

== ENCOUNTER → 2024-02-27 09:45 | Outpatient (CLI) | payer MEDICARE, SELFPAY ==
[2021-03-24 15:00] VITALS: BMI 31.1
[2024-02-27 11:04] LABS: Alanine Aminotransferase 29 IU/L (<50); Albumin 3.9 g/dL (3.5-5.0); Albumin Globulin Ratio 1.5 (1.0-2.8); Alkaline Phosphatase 91 U/L (38-126); Aspartate Aminotransferase 25 IU/L (17-59); BUN Creatinine Ratio 17.3 (6-22); Blood Urea Nitrogen 17 mg/dL (9-20); Calcium 9.2 mg/dL (8.4-10.2); Carbon Dioxide 27 mmol/L (22-32); Chloride 103 mmol/L (98-107); Cholesterol 163 mg/dL (140-199); Estimated Glomerular Filt Rate > 60 mL/min (>60); Globulin 2.6 g/dL (1.7-4.1); Glucose 136 mg/dL (80-110); HDL Cholesterol 42 mg/dL (40-60); HEMOLYSIS < 15 (0-50); LDL Cholesterol Calculated 76 mg/dL (<100); Sodium 137 mmol/L (137-145); Total Protein 6.5 g/dL (6.3-8.2); Triglycerides 226 mg/dL (35-150)
[2024-02-27 11:21] LABS: Hemoglobin A1C% w Est Avg Glu 6.1 % (4.0-6.0)
[2024-02-27 11:31] LABS: TSH w/ Reflex to FT4 3.01 uIU/mL (0.47-4.68)
== END ==
PROVIDERS: Family Provider Family Medicine; PCP Family Medicine; Referring Provider Family Medicine; Visit Provider Family Medicine
DX: R73.03 Prediabetes (principal); N52.01 Erectile dysfunction due to arterial insufficiency; N40.1 Benign prostatic hyperplasia with lower urinary tract symptoms; N13.8 Other obstructive and reflux uropathy; E78.2 Mixed hyperlipidemia; I10 Essential (primary) hypertension
CPT/HCPCS: 36415; 80053; 80061; 83036; 84443

== ENCOUNTER → 2024-06-04 13:41 | Outpatient (CLI) | payer MEDICARE, SELFPAY ==
[2021-03-24 15:00] VITALS: BMI 31.1
[2024-06-04 14:57] LABS: BUN Creatinine Ratio 14.9 (6-22); Blood Urea Nitrogen 17 mg/dL (9-20); Carbon Dioxide 27 mmol/L (22-32); Chloride 101 mmol/L (98-107); Estimated Glomerular Filt Rate > 60 mL/min (>60); Glucose 223 mg/dL (70-99); HEMOLYSIS < 15 (0-50); Magnesium 2.1 mg/dL (1.6-2.3); Potassium 3.9 mmol/L (3.4-5.1); Sodium 138 mmol/L (137-145)
== END ==
PROVIDERS: Family Provider Family Medicine; PCP Family Medicine; Referring Provider Internal Medicine Cardiovascular Disease; Visit Provider Internal Medicine Cardiovascular Disease
DX: I10 Essential (primary) hypertension (principal)
CPT/HCPCS: 36415; 80048; 83735

== ENCOUNTER 2024-08-22 05:06 | Emergency (ER) | payer MEDICARE, SELFPAY ==
[2021-03-24 15:00] VITALS: BMI 31.1
--- NOTE | 2024-08-22 05:24 | ED.GENADULT ---
HPI - General Adult General Chief complaint: Back Pain/Injury Stated complaint: cant sleep wants to talk to someone Time Seen by Provider: 08/22/24 05:24 History of Present Illness HPI narrative: 88-year-old gentleman with a history of heart failure, coronary artery disease, chronic neck pain, gait instability chooses to use a wheelchair to prevent falls, presents complaining of a week of left trapezius muscle pain. He saw his primary care physician on August 20 with similar complaints who suggested ice, heat, chiropractic consultation and topical nonsteroidal. Patient feels that this has not helped, he has also tried Tylenol, he notes that sitting in his shower and letting the hot water run over the muscle spasm did help somewhat. He comes to the ER this morning looking for solutions to his pain that has preventing him from sleeping. He is quite gregarious and chatty this morning Related Data Home Medications ?Medication ?Instructions ?Recorded ?Confirmed carvedilol 12.5 mg tablet 12.5 mg PO BID 07/25/23 08/20/24 multivitamin combination no.56 PO 07/25/23 01/18/24 hydrochlorothiazide 12.5 mg tablet 25 mg PO DAILY 08/20/24 08/20/24 Previous Rx's ?Medication ?Instructions ?Recorded cinnamon bark 500 mg capsule 500 mg PO BID #60 caps 12/14/17 (Cinnamon) Disabled Parking Permit #1 ea 01/19/21 losartan 100 mg tablet See Rx Instructions .Route 05/03/22 .COMPLEX #90 tabs atorvastatin 20 mg tablet 20 mg PO BEDTIME #90 tabs 07/29/22 sildenafil 50 mg tablet 50 mg PO DAILY PRN sexual activity 07/25/23 #20 tabs wheelchair #1 ea 08/02/23 empagliflozin 25 mg tablet 25 mg PO DAILY #90 tabs 12/04/23 (Jardiance) acetaminophen 325 mg tablet 650 mg (2 x 325 mg) PO Q6HR PRN 01/02/24 Pain, Mild (1-3) #90 tabs trazodone 50 mg tablet 25 mg (1/2 x 50 mg) PO BEDTIME PRN 01/18/24 insomnia #30 tabs lidocaine 5 % topical patch 1 patch topical DAILY #15 ea 08/22/24 Allergies Allergy/AdvReac Type Severity Reaction Status Date / Time No Known Drug Allergies Allergy Verified 08/22/24 05:39 Review of Systems Review of Systems Narrative: Pertinent positive and negative findings as per HPI Patient History Medical History Neck pain Insomnia Sebaceous cyst of eyelid CHF (congestive heart failure) Seborrheic keratosis BPH (benign prostatic hyperplasia) Adhesive capsulitis Right shoulder pain Retinal artery occlusion Facial trauma Prediabetes Partial tear of right rotator cuff Erectile dysfunction Atopic dermatitis Colon cancer History of fracture as a child Diarrhea Tear meniscus knee Edema Obese Hearing loss Retention of urine Depression BPH with urinary obstruction Mitral regurgitation History of echocardiogram (~06/2016) History of left heart catheterization (~11/2015) History of syncope 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 V-tach Vertigo AICD (automatic cardioverter/defibrillator) present (~07/05/13) Pacemaker Colon polyps Diabetes mellitus Hyperlipidemia Hypertension Peripheral neuropathy Surgical History S/P partial colectomy History of umbilical hernia repair History of tonsillectomy History of prostate surgery History of colonoscopy with polypectomy Implantable cardioverter-defibrillator (ICD) in situ Presence of cardiac pacemaker Family History Father [place] (myocardial infarction) Social History household members: other alcohol intake: current alcohol intake frequency: 0-2 drinks per day Exam Initial Vital Signs Initial Vital Signs: General: Alert appropriate in no acute distress, wheeled himself over from his assisted living and having no difficulty chatting with everybody in the waiting room Neck: No midline tenderness. He does have quite a bit of left trapezius muscle tenderness. He does not have any restricted range of motion of the left shoulder. There is no anterior palpable tenderness in the upper chest wall or along the sternal border Respiratory: Able to speak in full sentences, no obvious respiratory distress Skin: No obvious rashes, warm and dry Neurologic: Grossly intact no obvious asymmetries or abnormalities Psych: appropriate insight and affect, cooperative Medical Decision Making [facility] Narrative Medical decision making narrative: 88-year-old gentleman who has had pain and spasm in the left trapezius muscle for approximately a week. Topical nonsteroidals have not been particularly effective, Tylenol does not help much, hot shower was beneficial. When I suggested possible physical therapy he laughed and said he had had plenty of physical therapy and did not need to repeat that. Does not sound like he followed up with the suggestion to contact his chiropractor. In the emergency department a lidocaine patch was placed proximal portion of his trapezius muscle and he is given Vicodin. Discussed use of narcotics prior to dispensing. You recognizes that they will make his constipation worse, this has been a problem since he has been less mobile with his gait instability. He is ?willing to give it a try because I have not slept for days?. There was no indication this is pneumonia or other pulmonary disease, he does not have any radicular neck pain. Does not appear to be musculoskeletal pain into the left shoulder, there was no skin changes to suggest zoster. Options for pain control with the muscle spasm are reviewed in detail and written prescriptions provided. There was no indication for additional workup and he is safe for discharge Discharge Plan Departure Patient Disposition: Home Clinical Impression: Spasm of left trapezius muscle Instructions: DI for Muscle Spasm Activity Restrictions/Additional Instructions: I am sorry that your left trapezius muscle, the area in your neck that is sore, is hurting. I placed a topical lidocaine patch on the area to see if that might help and I gave you a Vicodin which is Tylenol plus hydrocodone. Narcotics can occasionally be helpful for acute pain particularly if you are unable to sleep. They will make your constipation worse so please do take extra stool softener any day that you do end up using a Vicodin. I have given you a couple extra Vicodin to use over the next 1-2 days. You can take 1 Vicodin with 1 Tylenol. If the lidocaine patch seems like it has been effective, you can fill a prescription for these as well I have given you a written prescription that you can choose to take to the pharmacy if you like. In looking at Dr. Rice's note, it sounds like you have had success with using chiropractors in the past. Seeing a chiropractor might be helpful if this pain continues If you find that you are getting worse or develop any new symptoms, please feel free to return to the emergency department for further evaluation. Prescriptions: New lidocaine 5 % adhesive patch,medicated 1 patch topical DAILY Qty: 15 0RF Rx Instructions: leave on most painful area for up to 12 hrs No Action cinnamon bark [Cinnamon] 500 mg capsule 500 mg PO BID Qty: 60 3RF (DME) Disabled Parking Permit See Rx Instructions .ROUTE .MEDSUPPLY Qty: 1 0RF Rx Instructions: Valid for 5 years losartan 100 mg tablet See Rx Instructions .ROUTE .COMPLEX Qty: 90 3RF Dose Instruction: TAKE 1 TABLET BY MOUTH ONCE DAILY. Rx Instructions: TAKE 1 TABLET BY MOUTH ONCE DAILY. atorvastatin 20 mg tablet 20 mg PO BEDTIME Qty: 90 1RF Jardiance 25 mg tablet 25 mg PO DAILY Qty: 90 1RF Rx Instructions: start 25 mg acetaminophen 325 mg tablet 650 mg PO Q6HR PRN (Reason: Pain, Mild (1-3)) Qty: 90 3RF hydrochlorothiazide 12.5 mg tablet 25 mg PO DAILY carvedilol 12.5 mg tablet 12.5 mg PO BID multivitamin combination no.56 PO sildenafil 50 mg tablet 50 mg PO DAILY PRN (Reason: sexual activity) Qty: 20 1RF Rx Instructions: administer 30 minutes to 4 hours before activity (DME) wheelchair See Rx Instructions .Route .MEDSUPPLY Qty: 1 0RF Rx Instructions: For daily usage trazodone 50 mg tablet 25 mg PO BEDTIME PRN (Reason: insomnia) Qty: 30 1RF Referrals: Ryan Rice DO [Primary Care Provider, Family Practice] Stand Alone Forms: Patient Portal/API
[2024-08-22 05:40] VITALS: BP 183/78; PULSE 69; RESP 17; TEMP 36.3; O2SAT 95; BMI 28.6
[2024-08-22] MEDS: HYDROCODONE/ACET 5/325 TABLET 1 TAB PO (05:47)
[2024-08-22] MEDS: LIDOCAINE 5% PATCH 1 EACH TOP (05:47)
[2024-08-22] MEDS: HYDROCODONE/ACET 5/325 PREPACK 1 BOTTLE MISC (05:48)
== END 2024-08-22 06:02 | disposition home or self-care (01) ==
PROVIDERS: Emergency Provider Emergency Medicine; Family Provider Family Medicine; PCP Family Medicine
DX: M62.838 Other muscle spasm (principal)
CPT/HCPCS: 99283

== ENCOUNTER → 2024-12-12 16:12 | Outpatient (CLI) | payer MEDICARE, SELFPAY ==
[2024-11-12 11:04] VITALS: BMI 31.1
[2024-12-12 16:49] LABS: Add Manual Diff / Slide Review NO; Hematocrit 41.2 % (41-53); Hemoglobin 14.5 g/dL (13.5-17.5); Lymphocytes Absolute Auto 2600 /uL (1100-4500); Mean Corpuscular HGB Conc 35.2 % (30-36); Mean Corpuscular Hemoglobin 32.9 PG (26-34); Mean Corpuscular Volume 93.6 fL (80-100); Platelet Count 246 X10^3/uL (150-400)
[2024-12-12 17:08] LABS: Hemoglobin A1C% w Est Avg Glu 6.2 % (4.0-6.0)
[2024-12-12 17:22] LABS: Alanine Aminotransferase 26 IU/L (<50); Albumin 3.9 g/dL (3.5-5.0); Albumin Globulin Ratio 1.4 (1.0-2.8); Alkaline Phosphatase 79 U/L (38-126); Blood Urea Nitrogen 24 mg/dL (9-20); Calcium 9.6 mg/dL (8.4-10.2); Carbon Dioxide 30 mmol/L (22-32); Chloride 100 mmol/L (98-107); Estimated Glomerular Filt Rate > 60 mL/min (>60); Globulin 2.7 g/dL (1.7-4.1); Glucose 179 mg/dL (70-99); HEMOLYSIS < 15 (0-50); Potassium 4.0 mmol/L (3.4-5.1); Sodium 138 mmol/L (137-145); Total Protein 6.6 g/dL (6.3-8.2); Uric Acid 6.9 mg/dL (3.5-8.5)
[2024-12-12 17:52] LABS: TSH w/ Reflex to FT4 1.96 uIU/mL (0.47-4.68)
== END ==
PROVIDERS: Family Provider Family Medicine; PCP Family Medicine; Referring Provider Physician Assistant; Visit Provider Physician Assistant
DX: R73.03 Prediabetes (principal); M79.674 Pain in right toe(s); I50.9 Heart failure, unspecified; N40.1 Benign prostatic hyperplasia with lower urinary tract symptoms; N13.8 Other obstructive and reflux uropathy; M54.2 Cervicalgia
CPT/HCPCS: 36415; 80053; 83036; 84443; 84550; 85025